=== PATIENT | female | born 1970 | race Caucasian/White ===

== ENCOUNTER 2017-07-09 14:22 | Emergency (ER) | payer SELFPAY ==
[2017-07-09 14:23] VITALS: BP 158/106; PULSE 89; RESP 16; TEMP 36.7; O2SAT 97; BMI 32.1
--- NOTE | 2017-07-09 15:07 | ED.DCSUM_ITS ---
- ER Visit Summary Date of Service: 07/09/17 Chief Complaint: Vomiting and diarrhea History of Present Illness: The patient is a [address] Bryant. She reports that she has vomiting diarrhea that began 2 days ago. She is vomited 3- 4 times. No blood or emesis. She has had 5-6 episodes of diarrhea per day. No blood in her stools or black tarry stools. She complains of cramping diffuse abdominal pain is 4-10 at worst and 3 out of 10 currently. Is worsened by nothing and relieved by nothing. Patient reports that this has gone throughout her entire household. She has not been camping. She has not been on antibiotics recently. No possible bad food exposure. She does not drink well water. Physical Examination: Vitals: Stable. Afebrile. General: Well-nourished and well-developed. Head: Normocephalic atraumatic. Neck: Supple, no lymphadenopathy. No JVD. Nontender. Cardiovascular: Regular rate and rhythm. No murmurs. Respiratory: No respiratory distress. Clear to auscultation bilaterally. Abdominal: Soft, nontender, nondistended, normal bowel sounds. No guarding, rebound, or peritoneal signs. Back: Nontender. Extremities: Nontender, no edema. Skin: Normal color, no rash. Neurologic: Alert and oriented ?3. Cranial nerves II through XII are intact. Normal strength and sensation. Psych: Normal affect. Emergency Department Course and Treatment: Patient refused an IV. She does not want any nausea medication this time. Is resting comfortably. Treatment Plan: Patient will be discharged with Zofran. Instructed to follow- up with primary care physician 1 to days if not improving. Disposition: To home in improved and stable condition. Impression: 1. Vomiting/diarrhea. This note was generated with [employer] dictation software. It may contain incorrect words, spelling, and punctuation that were not noted in review of the chart prior to signing ED Disposition - Plan for ED Patient: Disposition: Home or Assisted Living Chief Complaint: Nausea/Vomiting/Diarrhea Instructions: ED Gastroenteritis Viral Prescriptions: Ondansetron [Zofran Odt] 4 mg PO Q8H PRN PRN #10 tablet PRN Reason: Nausea Referrals: Rosana Bryant MD [Primary Care Provider] - 1-2 Days if not improving
[2017-07-09 15:21] VITALS: PULSE 84; RESP 18; O2SAT 97
== END 2017-07-09 15:22 | disposition home or self-care (01) ==
PROVIDERS: Emergency Provider Emergency Medicine; Family Provider Internal Medicine; PCP Internal Medicine
DX: R11.10 Vomiting, unspecified (principal); R19.7 Diarrhea, unspecified
CPT/HCPCS: 99282

== ENCOUNTER 2017-11-23 12:36 | Emergency (ER) | payer MEDICAID, SELFPAY ==
[2017-11-23 12:38] VITALS: BP 164/89; PULSE 107; RESP 18; TEMP 37.4; O2SAT 99; BMI 32.8
[2017-11-23 13:01] VITALS: TEMP 37.2
--- NOTE | 2017-11-23 13:19 | ED.DCSUM_ITS ---
- ER Visit Summary Date of Service: 11/23/17 Chief Complaint: Headache History of Present Illness: The patient is a 47 F who states that yesterday at work she began to develop a sore throat which progressed then to nasal drainage postnasal drip headache and nausea. States that she feels chilled but has not had a recorded fever. She does not wish any shots because she does not do well with needles. Former smoker. She states that she believes she got sick by family members who have had similar symptoms. Physical Examination: Afebrile vital signs are stable Gen: Well-nourished well-developed Head: Normocephalic atraumatic Eyes: Perrl EOMI ENT: TMs clear clear rhinorrhea moist mucous membranes there is no pharyngeal erythema Neck: Supple scant lymphadenopathy no JVD nontender no meningitic signs CVS: Regular rate rhythm no murmurs normal S1-S2 Respiratory: No distress clear to auscultation bilaterally chest nontender Abdomen: Soft nontender nondistended normal bowel sounds no masses Back: Nontender Extremity: Nontender no edema Skin: Normal color no rash Neuro: alert orientated ?3 CN II-XII intact normal strength sensation reflexes gait cerebellar Psych: Normal affect normal mood Emergency Department Course and Treatment: Patient received Toradol and Phenergan p.o. I will write for Phenergan at home to help with nausea. The patient most likely has a viral illness. Supportive care at home return if worsening or concerns or follow-up with primary care if not improving Impression: 1. Viral URI 2. Headache This note was generated with [employer] dictation software. It may contain incorrect words, spelling, and punctuation that were not noted in review of the chart prior to signing ED Disposition - Plan for ED Patient: Chief Complaint: Headache Instructions: ED URI Viral Prescriptions: proMETHazine tablet [Phenergan] 25 mg PO Q6H PRN PRN #10 tab PRN Reason: Nausea Ketorolac [Toradol] 10 mg PO Q8H PRN #10 tab PRN Reason: Migraine Symptoms Referrals: Rosana Bryant MD [Primary Care Provider] - 3-5 Days if not improving
[2017-11-23] MEDS: Ketorolac 10 MG Tablet PO (13:25)
[2017-11-23] MEDS: proMETHazine 25 MG Tablet PO (13:25)
== END 2017-11-23 13:32 | disposition home or self-care (01) ==
PROVIDERS: Emergency Provider Emergency Medicine; Family Provider Internal Medicine; PCP Internal Medicine
DX: J06.9 Acute upper respiratory infection, unspecified (principal); R51 Headache; Z87.891 Personal history of nicotine dependence
CPT/HCPCS: 99283

== ENCOUNTER 2018-02-22 18:22 | Emergency (ER) | payer MEDICAID, SELFPAY ==
[2018-02-22 18:22] VITALS: BP 167/94; PULSE 82; RESP 16; TEMP 36.2; O2SAT 99; BMI 31.8
--- NOTE | 2018-02-22 18:33 | ED.VISSUMM ---
- ER Visit Summary Date of Service: 02/22/18 Chief Complaint: Head injury History of Present Illness: The patient is a 47 F presents for evaluation of head injury occurring yesterday morning. Slipped on ice going out the house. The back of her head. No loss of consciousness. No nausea or vomiting. Later in the day noted anterior neck pain worse with movement. Patient did not take any anticoagulations. Is taking Aleve. States symptoms worsen with exertion. No previous similar symptoms in the past. No nausea or vomiting. Physical Examination: General: Alert and oriented ?3, no acute distress HEENT: Normocephalic, atraumatic. No hemotympanum. No facial tenderness. Moist mucosa membranes Neck: supple, no midline neck tenderness. There is anterior cervical muscle tenderness. Reproducible. Cardiovascular: Regular rate and rhythm, no murmurs Respiratory: Normal breath sounds, symmetric, no distress Back: No midline tenderness. Abdomen: Soft, nontender, nondistended Extremities: Nontender, no edema, pulses intact ?4 Neuro: no focal neurological deficits. Cranial nerves II through XII intact. Test Results: [] Emergency Department Course and Treatment: Patient no focal neurologic deficits. Complains of concussion symptoms. Patient no anticoagulation medicines. Discussed with patient her diagnosis. Discussed with concerns and wants further evaluation to rule out any bleeds can do a CT head. However states not indicated at this time. She had decision making, she agrees without image study at this time. Concussion precautions discussed along with information. Tylenol started. Discussed cervical neck strain. She will use Tylenol. She will monitor symptoms and follow-up with her PCP. Treatment Plan: [] Disposition: Discharge Impression: 1. Concussion without loss of consciousness 2. Anterior cervical neck muscle strain This note was generated with [employer] dictation software. It may contain incorrect words, spelling, and punctuation that were not noted in review of the chart prior to signing ED Disposition - Plan for ED Patient: Disposition: Home or Assisted Living Chief Complaint: Head Injury Diagnosis: Concussion without loss of consciousness, initial encounter, Neck muscle strain Instructions: ED Concussion, ED Sprain Strain Neck Referrals: Rosana Bryant MD [Primary Care Provider] - 3-5 Days
--- NOTE | 2018-02-22 18:37 | ED.DCSUM_ITS ---
- ER Visit Summary Date of Service: 02/22/18 Chief Complaint: Head injury History of Present Illness: The patient is a 47 F presents for evaluation of head injury occurring yesterday morning. Slipped on ice going out the house. The back of her head. No loss of consciousness. No nausea or vomiting. Later in the day noted anterior neck pain worse with movement. Patient did not take any anticoagulations. Is taking Aleve. States symptoms worsen with exertion. No previous similar symptoms in the past. No nausea or vomiting. Physical Examination: General: Alert and oriented ?3, no acute distress HEENT: Normocephalic, atraumatic. No hemotympanum. No facial tenderness. Charan st mucosa membranes Neck: supple, no midline neck tenderness. There is anterior cervical muscle tenderness. Reproducible. Cardiovascular: Regular rate and rhythm, no murmurs Respiratory: Normal breath sounds, symmetric, no distress Back: No midline tenderness. Abdomen: Soft, nontender, nondistended Extremities: Nontender, no edema, pulses intact ?4 Neuro: no focal neurological deficits. Cranial nerves II through XII intact. Test Results: [] Emergency Department Course and Treatment: Patient no focal neurologic deficits. Complains of concussion symptoms. Patient no anticoagulation medicines. Discussed with patient her diagnosis. Discussed with concerns and wants further evaluation to rule out any bleeds can do a CT head. However states not indicated at this time. She had decision making, she agrees without image study at this time. Concussion precautions discussed along with information. Tylenol started. Discussed cervical neck strain. She will use Tylenol. She will monitor symptoms and follow-up with her PCP. Treatment Plan: [] Disposition: Discharge Impression: 1. Concussion without loss of consciousness 2. Anterior cervical neck muscle strain This note was generated with [employer] dictation software. It may contain incorrect words, spelling, and punctuation that were not noted in review of the chart prior to signing ED Disposition - Plan for ED Patient: Disposition: Home or Assisted Living Chief Complaint: Head Injury Diagnosis: Concussion without loss of consciousness, initial encounter, Neck muscle strain Instructions: ED Concussion, ED Sprain Strain Neck Referrals: Rosana Bryant MD [Primary Care Provider] - 3-5 Days
[2018-02-22 18:39] VITALS: BP 160/84
[2018-02-22] MEDS: Acetaminophen 500 MG Tablet 1000 MG PO (18:45)
== END 2018-02-22 18:45 | disposition home or self-care (01) ==
PROVIDERS: Emergency Provider Emergency Medicine; Family Provider Internal Medicine; PCP Internal Medicine
DX: S06.0X0A Concussion without loss of consciousness, initial encounter (principal); S16.1XXA Strain of muscle, fascia and tendon at neck level, initial encounter; W00.2XXA Other fall from one level to another due to ice and snow, initial encounter; Y93.01 Activity, walking, marching and hiking; Y92.008 Other place in unspecified non-institutional (private) residence as the place of occurrence of the external cause
CPT/HCPCS: 99283

== ENCOUNTER 2018-03-14 01:15 | Emergency (ER) | payer MEDICAID, SELFPAY ==
[2018-03-14 01:17] VITALS: BP 168/102; PULSE 95; RESP 18; TEMP 36.4; O2SAT 97; BMI 33.0
--- NOTE | 2018-03-14 01:28 | RAD_ITS ---
STUDY: X-RAY - ACUTE ABDOMINAL SERIES REASON FOR EXAM: Female, 47 years old. Abdominal pain TECHNIQUE: Single view of the chest. Supine, 3 view(s) of the abdomen were obtained. COMPARISON: None. FINDINGS: There are mild fecal stasis. No bowel distention or free intraperitoneal air. Tubal ligation clips are seen in the pelvis. There are no abnormal calcifications in the urinary system. The accompanying chest radiograph is normal. RAD/Acute Abdomen Inc Chest IMPRESSION: No acute findings in the abdomen or chest. Mild fecal stasis Electronically Signed: Nazario Amos MD at 2:48 EST Tel , Service support ,
--- NOTE | 2018-03-14 01:28 | EKG12_ITS ---
Test Reason : Blood Pressure : / mmHG Vent. Rate : 090 BPM Atrial Rate : 090 BPM P-R Int : 156 ms QRS Dur : 082 ms QT Int : 378 ms P-R-T Axes : 012 001 003 degrees QTc Int : 462 ms Normal sinus rhythm Nonspecific T wave abnormality Prolonged QT Abnormal ECG Confirmed by MARLENI MCKEE, RUTH ([id number]), publishing editor PAULINA ALONZO ([id number] on 03/17/2018 2:51:58 PM Referred By: CRISPIN Confirmed By:RUTH YEPEZ MD
--- NOTE | 2018-03-14 01:28 | ED.RN ---
CALLED FOR EKG PER RN REQUEST, PULLED OLD EKGS FOR
--- NOTE | 2018-03-14 01:33 | ED.DCSUM_ITS ---
- ER Visit Summary Date of Service: 03/14/18 Chief Complaint: Abdominal pain History of Present Illness: The patient is a 47 F who presents for 1 day of abdominal pain. Patient is complaining of epigastric abdominal pain that will radiate up into the chest and into the mid abdomen bilaterally. Patient states the pain feels crampy. She has associated nausea but no vomiting or diarrhea. She is passing flatus. She denies fever, shortness of breath, cough or congestion, constipation, urinary symptoms, back pain. She has not tried any medicine for the discomfort. She has a history of cholecystectomy. She has history of hypertension and is on hypertension medications. Does not smoke or drink alcohol. No history of coronary artery disease. Patient's last meal was pizza for dinner. Physical Examination: Vital signs: afebrile, hemodynamically stable, no hypoxia on room air General: well nourished, well developed, in no distress Skin: warm, dry, no rash, no pallor HEENT: normocephalic and atraumatic; PERRL, EOMI, moist mucous membranes Cardiovascular: regular rate and rhythm without murmurs, no peripheral edema, 2+ pulses all distal extremities Respiratory: No increased work of breathing, lungs are clear to auscultation bilaterally, no rales, rhonchi or wheezing Abdominal: Abdomen is soft, low epigastric tenderness with normoactive bowel sounds, no guarding or rebound, no rigidity, no masses MSK: Moves all extremities, no deformities, normal strength Neuro: Awake and alert, oriented ?4. No facial droop, sensation and motor function intact and symmetric Test Results: Abnormal Lab Results 03/14/18 03/14/18 03/14/18 01:35 01:35 01:35 WBC 7.6 RBC 5.07 Hgb 14.2 Hct 43.2 MCV 85.2 MCH 28.0 MCHC 32.9 RDW 15.2 H RDW Differential 47.2 H Plt Count 363 MPV 9.5 Immature Gran % (Auto) 0.100 Neut % (Auto) 64.1 Lymph % (Auto) 22.6 Valley % (Auto) 10.5 H Eos % (Auto) 2.0 Baso % (Auto) 0.7 Absolute Neuts (auto) 4.9 Absolute Lymphs (auto) 1.73 Total Counted Not Reportable Sodium 138 Potassium 3.3 L Chloride 104 Carbon Dioxide 27.0 Anion Gap 7 BUN 14 Creatinine 0.64 Estim Creat Clear Calc 88.93 Est GFR (MDRD) Af Amer 127 Est GFR (MDRD) Non-Af 105 BUN/Creatinine Ratio 21.9 H Glucose 132 H Calcium 8.2 L Total Bilirubin 0.30 AST 33 ALT 21 Alkaline Phosphatase 111 Troponin I < 0.015 Total Protein 7.4 Albumin 3.5 Globulin 3.9 Albumin/Globulin Ratio 0.9 Lipase 181 Serum , Qual NEGATIVE 03/14/18 04:31 WBC RBC Hgb Hct MCV MCH MCHC RDW RDW Differential Plt Count MPV Immature Gran % (Auto) Neut % (Auto) Lymph % (Auto) Valley % (Auto) Eos % (Auto) Baso % (Auto) Absolute Neuts (auto) Absolute Lymphs (auto) Total Counted Sodium Potassium Chloride Carbon Dioxide Anion Gap BUN Creatinine Estim Creat Clear Calc Est GFR (MDRD) Af Amer Est GFR (MDRD) Non-Af BUN/Creatinine Ratio Glucose Calcium Total Bilirubin AST ALT Alkaline Phosphatase Troponin I < 0.015 Total Protein Albumin Globulin Albumin/Globulin Ratio Lipase Serum , Qual Clinical Impression(s) from Imaging Studies Acute Abdomen Series 03/14/18 01:28 IMPRESSION: No acute findings in the abdomen or chest. Mild fecal stasis Electronically Signed: Nazario Amos MD at 2:48 EST Tel , Service support , Medications Given Discontinued Medications Al Hydroxide/Mg Hydroxide (Mylanta Ii) 30 ml PO X1 ONE Stop: 03/14/18 01:28 Last Admin: 03/14/18 01:39 Dose: 30 ml Dicyclomine HCl (Bentyl) 20 mg PO X1 ONE Stop: 03/14/18 01:28 Last Admin: 03/14/18 01:39 Dose: 20 mg Lidocaine HCl (Xylocaine Viscous) 15 ml PO X1 ONE Stop: 03/14/18 01:28 Last Admin: 03/14/18 01:39 Dose: 15 ml Multi-Ingredient GI Drug () 1 each PO X1 ONE Stop: 03/14/18 01:28 Last Admin: 03/14/18 01:44 Dose: Not Given Emergency Department Course and Treatment: Patient presents with several hours of epigastric discomfort radiating into the substernal region and also going to the abdomen. Patient presents because she is concerned it could be her heart. Her pain is crampy and she describes it like indigestion. She does have some lower epigastric tenderness on palpation. Given substernal chest pain along with the epigastric discomfort, workup performed to look for intra-abdominal and intrathoracic pathology. EKG shows sinus rhythm without ischemic changes. Troponin negative. Patient had no leukocytosis, anemia, electrolyte derangements, hepatic derangements or elevated lipase. Patient was given a GI cocktail and a dose of Bentyl, and had improvement in her pain. Patient has been having several hours of symptoms, and if the substernal discomfort was related to acute coronary syndrome, I would expect to see changes on the troponin repeat EKG. Patient is low risk for acute coronary syndrome, with a heart score of 3 for age, story and one risk factor of hypertension. Patient was amenable to a 3-hour repeat EKG and troponin. EKG showed sinus rhythm with no changes and repeat troponin remained negative. Patient was reevaluated again and had no discomfort. Her symptoms were resolved. She was given a prescription for Bentyl for her crampy abdominal pain and a prescription for Phenergan any nausea symptoms. Patient will follow up with her primary care provider. Patient discharged home with symptoms resolved. Treatment Plan: [] Disposition: [] Impression: abdominal pain, indigestion This note was generated with [employer] dictation software. It may contain incorrect words, spelling, and punctuation that were not noted in review of the chart prior to signing ED Disposition - Plan for ED Patient: Disposition: Home or Assisted Living Chief Complaint: Abd Pain Instructions: ED Abdominal Pain Unkn Cause, ED GERD Prescriptions: proMETHazine tablet [Phenergan tablet] 25 mg PO Q6H PRN PRN #15 tab PRN Reason: Nausea RX: Dicyclomine HCl [Bentyl] 20 mg PO TIDAC #20 cap Referrals: Rosana Bryant MD [Primary Care Provider] - 1 Week if not improving Additional Instructions: If you have any worsening of your condition or any new concerning symptoms, please return immediately to the emergency department for another evaluation.
[2018-03-14] MEDS: Mag Hydrox/Al Hydrox/Simeth 30 ML UDC PO (01:39)
[2018-03-14] MEDS: Dicyclomine 10 MG Capsule 20 MG PO (01:39)
[2018-03-14 01:40] LABS: Absolute Lymphocyte Count 1.73 X10^3/ul (0.83-4.51); Absolute Neutrophil Count 4.9 X10^3/uL (2.0-7.7); Basophil# 0.05 X10^3/uL; Basophil% 0.7 % (0-1); Eosinophil# 0.15 X10^3/uL; Hematocrit 43.2 % (37-47); Hemoglobin 14.2 g/dl (12.0-15.0); Lymphocyte # 1.73 X10^3/ul (4.0); Lymphocyte % 22.6 % (19-41); Mean Corp Hgb Conc 32.9 g/gl (32-36); Mean Corpuscular Volume 85.2 fL (81-99); Mean Platelet Vol. 9.5 fl (6.2-12.0); Monocyte% 10.5 % (0-10); Neutrophil % 64.1 % (47-70); Platelet Count 363 K/mm3 (150-450); RBC Distribution Width CV 15.2 % (11.6-14.6); RBC Distribution Width SD 47.2 fl (35.1-43.9); Red Blood Count 5.07 M/mm3 (4.2-5.4); White Blood Count 7.6 K/mm3 (4.4-11.0)
[2018-03-14 01:42] LABS: POSITIVE COUNT NO; POSITIVE DIFFERENTIAL NO; POSITIVE MORPHOLOGY NO
[2018-03-14 01:57] LABS: ALB/GLOB Ratio 0.9 RATIO (0.9-2.4); AST(SGOT) 33 U/L (15-37); Alanine Aminotransfer ALT/SGPT 21 U/L (13-56); Albumin, Serum 3.5 g/dL (3.2-5.0); Alkaline Phosphatase 111 U/L (45-117); Anion Gap 7 (5-15); BUN 14 mg/dL (7-18); BUN/Creat Ratio 21.9 RATIO (10-20); Calcium,Total 8.2 mg/dL (8.5-10.1); Chloride 104 mmol/L (98-107); Creatinine, Serum 0.64 mg/dL (0.55-1.02); EST Glomerular Filtration Rate 105 mL/min (>60); Est Glom Filt Rate - Afr Amer 127 mL/min (>60); Estimated Creatinine Clearance 88.93 ml/min; Globulin 3.9 g/dL (2.2-4.2); Glucose 132 mg/dL (74-106); Lipase 181 U/L (73-393); Potassium 3.3 mmol/L (3.5-5.1); Protein, Total 7.4 g/dL (6.4-8.2); Sodium Level 138 mmol/L (136-145)
[2018-03-14 02:31] LABS: Pregnancy, Serum, hCG Quali. NEGATIVE Negative (0-9 Nonpreg)
--- NOTE | 2018-03-14 04:30 | EKG12_ITS ---
Test Reason : REPEAT Blood Pressure : / mmHG Vent. Rate : 085 BPM Atrial Rate : 085 BPM P-R Int : 150 ms QRS Dur : 080 ms QT Int : 428 ms P-R-T Axes : 011 000 -02 degrees QTc Int : 509 ms Normal sinus rhythm Minimal voltage criteria for LVH, may be normal variant Nonspecific T wave abnormality Prolonged QT Abnormal ECG Confirmed by MARLENI MCKEE, RUTH ([id number]), marketing editor PAULINA ALONZO ([id number] on 03/17/2018 2:52:17 PM Referred By: CRISPIN Confirmed By:RUTH YEPEZ MD
--- NOTE | 2018-03-14 05:06 | ED.DEP ---
ED Disposition - Plan for ED Patient: Disposition: Home or Assisted Living Chief Complaint: Abd Pain Instructions: ED Abdominal Pain Unkn Cause, ED GERD Prescriptions: proMETHazine tablet [Phenergan tablet] 25 mg PO Q6H PRN PRN #15 tab PRN Reason: Nausea Dicyclomine HCl [Bentyl] 20 mg PO TIDAC #20 cap Referrals: Rosana Bryant MD [Primary Care Provider] - 1 Week if not improving Additional Instructions: If you have any worsening of your condition or any new concerning symptoms, please return immediately to the emergency department for another evaluation.
[2018-03-14 05:11] VITALS: BP 160/78; PULSE 83; RESP 16; O2SAT 98
== END 2018-03-14 05:17 | disposition home or self-care (01) ==
PROVIDERS: Emergency Provider Emergency Medicine; Family Provider Internal Medicine; PCP Internal Medicine
DX: R10.816 Epigastric abdominal tenderness (principal); K30 Functional dyspepsia; I10 Essential (primary) hypertension; Z79.899 Other long term (current) drug therapy
CPT/HCPCS: 74022; 80053; 83690; 84484; 84703; 85025; 93005; 99283; A4216

== ENCOUNTER 2018-03-17 19:46 | Emergency (ER) | payer MEDICAID, SELFPAY ==
[2018-03-17 19:47] VITALS: BP 198/107; PULSE 70; RESP 19; TEMP 36.9; O2SAT 99; BMI 31.8
--- NOTE | 2018-03-17 20:21 | CT_ITS ---
STUDY: CT ABDOMEN AND PELVIS WITHOUT CONTRAST REASON FOR EXAM: Female, 47 years old. Bilateral flank pain. RADIATION DOSAGE (If Supplied By Facility): CTDIvol = ( 11.30 ) mGy, DLP = ( 618.46 ) mGycm TECHNIQUE: Transaxial images were obtained from the dome of the diaphragm to the symphysis pubis without oral contrast, and without intravenous contrast. Sagittal and coronal images were reconstructed. Individualized dose optimization techniques were used for this CT. COMPARISON: September 12, 2014 FINDINGS: The visualized lung bases are unremarkable. The visualized portions of the heart are within normal limits. Normal liver. There is evidence of prior cholecystectomy. Normal spleen. Normal pancreas. Normal bilateral adrenal glands. Normal right kidney. Normal left kidney. Normal visualized stomach. Normal small intestine. Normal colon. There is non-visualization of the appendix. Normal abdominal aorta. Normal inferior vena cava. Normal retroperitoneum. Normal urinary bladder. There is evidence of prior tubal ligation. There is a small umbilical hernia containing fat. Normal osseous structures. CT/Abdomen/Pelvis without Cont IMPRESSION: No acute intra-abdominal process. Electronically Signed: Leah Willson MD at 21:12 EST Tel , Service support ,
--- NOTE | 2018-03-17 20:31 | EKG12_ITS ---
Test Reason : FLANK PAIN Blood Pressure : / mmHG Vent. Rate : 067 BPM Atrial Rate : 067 BPM P-R Int : 126 ms QRS Dur : 094 ms QT Int : 432 ms P-R-T Axes : 070 008 017 degrees QTc Int : 456 ms Normal sinus rhythm Normal ECG Confirmed by MARLENI MCKEE, RUTH ([id number]), fan mail editor PAULINA ALONZO ([id number] on 03/21/2018 10:46:19 AM Referred By: KYREE Confirmed By:RUTH YEPEZ MD
--- NOTE | 2018-03-17 20:32 | ED.VISSUMM ---
- ER Visit Summary Date of Service: 03/17/18 Chief Complaint: [] Abdominal pain radiating to the back for days vomiting History of Present Illness: The patient is a 47 F [] history for days she was seen recently in the emergency department workup was unremarkable she reports she continues to have basically pain she points to the umbilical area reports the pain radiates around to both backs right and left she has had intermittent vomiting she has had normal bowel habits normal urinary habits she denies any history of [place] PE DVT or any GI elements Physical Examination: [] 190/70 afebrile General, no distress resting comfortably HEENT is generally unremarkable The neck is supple no adenopathy Cardiovascular, regular rate and rhythm Lungs, clear bilateral Abdomen, soft nontender cannot reproduce her pain but again she takes both hands and draws it to both flanks to her back complaint discomfort here there is no pulsation rebound guarding organomegaly Extremities, no clubbing cyanosis or edema Neurologic, awake alert answering questions appropriately moving all 4 extremities Test Results: [] Emergency Department Course and Treatment: [] IV fluids screening labs CT abdomen Screening labs and abdominal CT are all generally unremarkable nothing acute see those reports Explained all the above to her that the exact etiology of this pain that she has had for days is unclear there is nothing on physical exam nothing on the CT of the laboratory evaluation he has a follow-up appointment scheduled tomorrow with her outpatient provider she will keep that appointment and return for change in symptoms and otherwise follow all of the prior instruction she was given for this abdominal pain Treatment Plan: [] Disposition: [] Home stable Impression: [] Abdominal pain etiology unclear This note was generated with [employer] dictation software. It may contain incorrect words, spelling, and punctuation that were not noted in review of the chart prior to signing ED Disposition - Plan for ED Patient: Chief Complaint: Flank Pain Referrals: Rosana Bryant MD [Primary Care Provider] -
[2018-03-17] MEDS: 0.9% Normal Saline 1,000 ML 1000 ML IV (20:35)
[2018-03-17] MEDS: Ondansetron 4 MG/2 ML Vial IV (20:36)
--- NOTE | 2018-03-17 20:36 | ED.DCSUM_ITS ---
- ER Visit Summary Date of Service: 03/17/18 Chief Complaint: [] Abdominal pain radiating to the back for days vomiting History of Present Illness: The patient is a 47 F [] history for days she was seen recently in the emergency department workup was unremarkable she reports she continues to have basically pain she points to the umbilical area reports the pain radiates around to both backs right and left she has had intermittent vomiting she has had normal bowel habits normal urinary habits she denies any history of [place] PE DVT or any GI elements Physical Examination: [] 190/70 afebrile General, no distress resting comfortably HEENT is generally unremarkable The neck is supple no adenopathy Cardiovascular, regular rate and rhythm Lungs, clear bilateral Abdomen, soft nontender cannot reproduce her pain but again she takes both hands and draws it to both flanks to her back complaint discomfort here there is no pulsation rebound guarding organomegaly Extremities, no clubbing cyanosis or edema Neurologic, awake alert answering questions appropriately moving all 4 extremities Test Results: [] Emergency Department Course and Treatment: [] IV fluids screening labs CT abdomen Screening labs and abdominal CT are all generally unremarkable nothing acute see those reports Explained all the above to her that the exact etiology of this pain that she has had for days is unclear there is nothing on physical exam nothing on the CT of the laboratory evaluation he has a follow-up appointment scheduled tomorrow with her outpatient provider she will keep that appointment and return for change in symptoms and otherwise follow all of the prior instruction she was given for this abdominal pain Treatment Plan: [] Disposition: [] Home stable Impression: [] Abdominal pain etiology unclear This note was generated with [employer] dictation software. It may contain incorrect words, spelling, and punctuation that were not noted in review of the chart p rior to signing ED Disposition - Plan for ED Patient: Chief Complaint: Flank Pain Referrals: Rosana Bryant MD [Primary Care Provider] -
[2018-03-17 20:41] LABS: Absolute Lymphocyte Count 1.32 X10^3/ul (0.83-4.51); Absolute Neutrophil Count 5.7 X10^3/uL (2.0-7.7); Basophil# 0.06 X10^3/uL; Basophil% 0.7 % (0-1); Eosinophil# 0.36 X10^3/uL; Eosinophils% 4.3 % (0-5); Hematocrit 44.4 % (37-47); Hemoglobin 14.3 g/dl (12.0-15.0); Lymphocyte # 1.32 X10^3/ul (4.0); Lymphocyte % 15.8 % (19-41); Mean Corp Hgb Conc 32.2 g/gl (32-36); Mean Corpuscular Hgb 27.8 pg (27.0-32.0); Mean Corpuscular Volume 86.4 fL (81-99); Mean Platelet Vol. 9.5 fl (6.2-12.0); Monocyte# 0.94 X10^3/uL; Monocyte% 11.2 % (0-10); Neutrophil # 5.66 X10^3/uL (2.7-7.7); Neutrophil % 67.8 % (47-70); Platelet Count 351 K/mm3 (150-450); RBC Distribution Width CV 15.4 % (11.6-14.6); RBC Distribution Width SD 49.2 fl (35.1-43.9); Red Blood Count 5.14 M/mm3 (4.2-5.4); White Blood Count 8.4 K/mm3 (4.4-11.0)
[2018-03-17 20:45] LABS: POSITIVE COUNT NO; POSITIVE DIFFERENTIAL NO; POSITIVE MORPHOLOGY NO
[2018-03-17 20:45] LABS: Red Blood Cells-Urine 0 SEEN /hpf (0-5)
[2018-03-17 20:46] LABS: Color, Urine Yellow (Yellow); Glucose, Dipstick Normal (Normal); Ketone-Dipstick 50 mg/dl (Negative); Leukocyte Esterase-Dipstick 25 /ul (Negative); Nitrite-Dipstick Negative (Negative); Occult Blood-Urine Negative /ul (Negative); Protein-Dipstick 15 mg/dl (Negative); Urine Clarity Clear (Clear); Urine Urobilinogen 4 mg/dl (Normal)
[2018-03-17 20:51] LABS: Urine Bilirubin Dipstick 1 mg/dL (Negative)
[2018-03-17 20:52] LABS: Mucous, Urine 1+ /hpf (<or=2+); Squamous Epithelial Cells - UA 0-5 SEEN /hpf (5-10); White Blood Cells 0-5 SEEN /hpf (0-5)
--- NOTE | 2018-03-17 20:57 | ED.RN ---
PT STATES UNABLE TO TAKE MORPHINE D/T ALLERGY, DR. SOTO MADE AWARE, VERBAL ORDERS OBTAINED.
[2018-03-17 20:59] LABS: AST(SGOT) 226 U/L (15-37); Alanine Aminotransfer ALT/SGPT 460 U/L (13-56); Albumin, Serum 3.7 g/dL (3.2-5.0); Alkaline Phosphatase 272 U/L (45-117); Anion Gap 6 (5-15); BUN 8 mg/dL (7-18); BUN/Creat Ratio 11.2 RATIO (10-20); Bilirubin, Direct 1.86 mg/dL (0.00-0.30); Calcium,Total 8.6 mg/dL (8.5-10.1); Chloride 103 mmol/L (98-107); Creatinine, Serum 0.71 mg/dL (0.55-1.02); EST Glomerular Filtration Rate 93 mL/min (>60); Est Glom Filt Rate - Afr Amer 112 mL/min (>60); Estimated Creatinine Clearance 80.16 ml/min; Globulin 4.4 g/dL (2.2-4.2); Glucose 105 mg/dL (74-106); Lipase 182 U/L (73-393); Potassium 3.3 mmol/L (3.5-5.1); Protein, Total 8.1 g/dL (6.4-8.2); Sodium Level 138 mmol/L (136-145)
[2018-03-17] MEDS: Acetaminophen 500 MG Tablet 1000 MG PO (21:03)
--- NOTE | 2018-03-17 21:25 | ED.DEP ---
ED Disposition - Plan for ED Patient: Chief Complaint: Flank Pain Instructions: ED Flank Pain Uncertain Cause Referrals: Rosana Bryant MD [Primary Care Provider] -
[2018-03-17 21:41] VITALS: BP 180/111; PULSE 74; RESP 16
--- OUTSIDE RECORDS SUMMARY | 2018-05-04 03:36 | XMS RPT_ITS ---
:1970 Author Organization OH[employer] Name Relationship Address Phone LI, RIGOBERTO Unavailable [address] + [place] [address] UE Unavailable Unavailable Unavailable LI, RIGOBERTO Unavailable [address] + [place] [address] UE Unavailable Unavailable Unavailable LI, RIGOBERTO Unavailable [address] + [place] [address] UE Unavailable Unavailable Unavailable LI, RIGOBERTO Unavailable [address] + [place] [address] UE Unavailable Unavailable Unavailable LI, RIGOBERTO Unavailable [address] + [place] [address] UE Unavailable Unavailable Unavailable LI, RIGOBERTO Unavailable [address] + [place] [address] UE Unavailable Unavailable Unavailable LI, RIGOBERTO Unavailable [address] + [place] [address] UE Unavailable Unavailable Unavailable LI, RIGOBERTO Unavailable [address] + [place] [address] UE Unavailable Unavailable Unavailable LI, RIGOBERTO Unavailable [address] + [place] [address] UE Unavailable Unavailable Unavailable LI, RIGOBERTO Unavailable Unavailable + [employer] Unavailable . +. [place] [address] LI, RIGOBERTO Unavailable [address] + [place] [address] Care Team Providers Name Role Phone LARISA SANDRA Attending Unavailable PHYSICIAN, NONE Primary Care Unavailable ALIYAH VALDOVINOS () Attending Unavailable JAMES JORDAN (HYDRAULIC CHAIR ASSEMBLER) Attending Unavailable GANTA, JULITA Referring Unavailable PODLOGARSTEPHANIE (JARVIS) Attending Unavailable JAMES JORDAN (JARVIS) Attending Unavailable PODLOGAR, STEPHANIE (HYDRAULIC CHAIR ASSEMBLER) Referring Unavailable Ganta, Julita Primary Care Unavailable Reena Olivier Attending Unavailable Jose Juan Matias Attending Unavailable Robotham, Nita Referring Unavailable Robotham, Nita Admitting Unavailable Robotham, Nita Attending Unavailable Robotham, Nita Referring Unavailable Ganta, Julita Primary Care Unavailable Robotham, Nita Consulting Unavailable Ganta, Julita Primary Care Unavailable Cassie Celis Attending Unavailable Ganta, Julita Primary Care Unavailable Hamlet Waters Attending Unavailable Ganta, Julita Primary Care Unavailable Patrice Sanders Attending Unavailable Ganta, Julita Primary Care Unavailable Andrzej Allison Attending Unavailable Robotham, Nita Admitting Unavailable Robotham, Nita Attending Unavailable Robotham, Nita Referring Unavailable Ganta, Julita Primary Care Unavailable Robotham, Nita Consulting Unavailable Robotham, Nita Admitting Unavailable Alexandru Pierce Attending Unavailable Robotham, Nita Referring Unavailable Ganta, Julita Primary Care Unavailable Robotham, Nita Consulting Unavailable Ganta, Julita Primary Care Unavailable Robotham, Nita Admitting Unavailable Robotham, Nita Attending Unavailable Robotham, Nita Referring Unavailable PROBLEMS PROBLEMS DATE TYPE CONDITION / CODE ATTENDING STATUS SOURCE 04/16/2018 Unknown R94.31 - Abnormal Jose Juan Matias Active [facility] [[facility] [EKG] / Hospital R94.31(ICD-10) Repository 03/18/2018 Active Pain in right foot / NA Active [facility] M79.671(ICD-10) [facility] [place] Repository 03/18/2018 Active Abnormal levels of NA Active [facility] other serum enzymes / [facility] R74.8(ICD-10) [place] Repository 03/18/2018 Active Unspecified abdominal NA Active [facility] pain / R10.9(ICD-10) [facility] [place] Repository 09/20/2017 Active Encounter for NA Active [facility] screening mammogram [facility] for malignant neoplasm [place] of breast / Repository Z12.31(ICD-10) 09/20/2017 Active Unknown / UNK(Unknown) NA Active [facility] Repository PROCEDURES PROCEDURES No Procedure Records FoundRESULTS RESULTS PROGRESS Observed: 04/25/2018 Status: COMPLETED Source: [place] 10:03 AM [facility] REPOSITORY HNO ID: [id number] Author: James Jordan Service: (none) Author Type: Nurse Practitioner Type: Progress Notes Filed: 04/25/2018 10:04 AM Note Text: Orders filed. James Jordan APRN.CNP PROGRESS Observed: 04/25/2018 Status: COMPLETED Source: [place] 8:10 AM [facility] REPOSITORY HNO ID: [id number] Author: Amparo Martinez Service: (none) Author Type: Key Holder Type: Progress Notes Filed: 04/25/2018 10:04 AM Note Text: POPULATION HEALTH WET MIX OPERATOR QUICKNOTE Provider Action/FYI: Please file lab. Patient replied to [employer] message and states she'll call in to make an appointment. Patient identified by name and . Gave patient my direct number to call back to make appointment. 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 [employer] message sent. Amparo Martinez CMA PROGRESS Observed: 04/24/2018 Status: COMPLETED Source: [place] 9:03 AM [facility] REPOSITORY HNO ID: [id number] Author: Amparo Martinez Service: (none) Author Type: Key Holder Type: Progress Notes Filed: 04/25/2018 10:04 AM Note Text: PHMA TEAMLET DOCUMENTATION Provider Action/FYI: PSR Action/FYI: R/s Nurse BP check Teamlet has identified patient by name and date of . Team: James Carrillo ? Last Office Visit:03/18/2018 ? Next Office Visit: Visit date not found ? Last BP/Labs: Blood Pressure: Last 3 Encounter BP Readings: Date: BP: 03/18/2018 160/110 12/31/2017 138/86 11/05/2017 150/88 Lipids: No results found for: CHOL No results found for: HDL No results found for: LDL No results found for: TG HGB A1C: No results found for: HBA1C TSH: TSH (uU/mL) Date Value 09/03/2014 2.100 ) Care Gap: HTN Plan: ? Confirm PCP / Status - active ? Type of appointment needed: Nurse BP vist next available ? Consultation Appointments: n/a Labs, HM and Immunization: Health Maintenance Due: BP CONTROLLED (<130/80) due on 06/22/1987 LIPID SCREEN due on 2014 - order pending DIABETES SCREEN due on 2014 - ordered INFLUENZA(1) due on 12/07/2017 Amparo Martinez CMA CNPTOUTREACH Observed: 04/24/2018 Status: COMPLETED Source: [place] 12:00 AM [facility] REPOSITORY Patient Outreach (INTMWS) GILMA MILLER ([id number]) 1970 F CHT Date Time Provider Department 04/24/18 AMPARO MARTINEZ) INTMWS During your visit today, we recorded the following information about you: Amparo Martinez CMA 04/25/2018 10:04 AM Signed PHMA TEAMLET DOCUMENTATION Provider Action/FYI: PSR Action/FYI: R/s Nurse BP check Teamlet has identified patient by name and date of . Team: James Carrillo ? Last Office Visit:03/18/2018 ? Next Office Visit: Visit date not found ? Last BP/Labs: Blood Pressure: Last 3 Encounter BP Readings: Date: BP: 03/18/2018 160/110 12/31/2017 138/86 11/05/2017 150/88 Lipids: No results found for: CHOL No results found for: HDL No results found for: LDL No results found for: TG HGB A1C: No results found for: HBA1C TSH: TSH (uU/mL) Date Value 09/03/2014 2.100 ) Care Gap: HTN Plan: ? Confirm PCP / Status - active ? Type of appointment needed: Nurse BP vist next available ? Consultation Appointments: n/a Labs, HM and Immunization: Health Maintenance Due: BP CONTROLLED (<130/80) due on 06/22/1987 LIPID SCREEN due on 2014 - order pending DIABETES SCREEN due on 2014 - ordered INFLUENZA(1) due on 12/07/2017 SCOTT Harrison, [facility] 04/25/2018 10:04 AM Signed [facility] ASSISTANT JUAN LUIS Provider Action/FYI: Patient identified by name and . [employer] message sent. SCOTT Harrison SUPERVISOR [employer] 04/25/2018 10:04 AM Signed [facility] WET MIX OPERATOR JUAN LUIS Provider Action/FYI: Please file lab. Patient replied to [employer] message and states she'll call in to make an appointment. Patient identified by name and . Gave patient my direct number to call back to make appointment. SCOTT Harrison APRN.CNP 04/25/2018 10:04 AM Signed Orders filed. James Jordan APRN.CNP Allergies As of Date: 04/24/2018 Noted Allergy Reaction MOBIC (MELOXICAM) 10/24/2009 4 - Hives NAPROXEN 10/24/2009 8 - GI Upset PREDNISONE 11/07/2009 4 - Hives 12 - Shortness of Breath TYLENOL #3 (CODEINE) 10/24/2009 4 - Hives VICODIN (HYDROCODONE-ACETAMINOPHE*09/27/2014 8 - GI Upset Comments: Nausea Date Reviewed: 03/18/2018 Reviewed by: Libia Queen Ma - Fully Assessed Reason for Visit: PHMA/Care Gap Outreach [4124] Primary Visit Diagnosis:Screening, lipid [Z13.220] Order(s):LIPID PANEL BASIC [SQLIPB] Order #: [id number] FUTURE Prescriptions as of 04/24/2018 Sig: POLYETHYLENE GLYCOL 3350 17 G* Take 17 g by mouth twice soledad* AMLODIPINE 5 MG TABLET Take 1 tablet by mouth once d* OMEPRAZOLE 20 MG CAPSULE,ANGELINA* Take 1 capsule by mouth daily* ONDANSETRON 4 MG DISINTEGRATI* Take 1 tablet by mouth every * POTASSIUM CHLORIDE ER 10 MEQ * Take 1 tablet by mouth daily * COMPOUNDED PRESCRIPTION Blood pressure cuff ICD Code* WHITE PETROLATUM 41 % TOPICAL* Apply 1 application to affect* LISINOPRIL 20 MG-HYDROCHLOROT* Take 1 tablet by mouth twice * MINERAL OIL-HYDROPHIL PETROLA* Apply 1 application to affect* COMPOUNDED PRESCRIPTION BLOOD PRESSURE CUFF FOR HOME * COMPOUNDED PRESCRIPTION Blood pressure machine DX: Problem List As Of Date 04/24/2018 Noted Resolved Essential Hypertension, Benign [I10] INVALID FOR* More... Chronic low back pain [M54.5, G89.29] INVALID FOR* More... Heavy menses [N92.0] INVALID FOR*10/20/2014 Abnormal uterine bleeding [N93.9] INVALID FOR*10/20/2014 Irregular bleeding [N92.6] INVALID FOR*10/20/2014 Mixed incontinence [N39.46] INVALID FOR* Encounter Status:Closed by AMPARO MARTINEZ CMA on 04/25/18 12 LEAD ELECTROCARDIOGRAM Observed: 03/24/2018 Status: F Source: [place] 7:55 AM [facility] Cardiovascular Services [address] [place] [id number] 12 Lead EKG 03/19/18 1435 MR#: [id number] Acct: [id number] Name: GILMA MILLER Rep #: [id number] : 1970 47 From: Jose Juan Matias MD Attending Dr: Nita Gonzalez MD Status: DIS QUANG Ordering Dr: William Mcfarlane MD Date: 03/19/18 Location: [facility] Sex: F C Admitted: 03/18/18 Test Reason : Blood Pressure : / mmHG Vent. Rate : 093 BPM Atrial Rate : 093 BPM P-R Int : 134 ms QRS Dur : 082 ms QT Int : 370 ms P-R-T Axes : 026 003 000 degrees QTc Int : 460 ms Normal sinus rhythm Nonspecific T wave abnormality Abnormal ECG When compared with ECG of 17-MAR-2018 20:40, MANUAL COMPARISON REQUIRED, DATA IS UNCONFIRMED Confirmed by JOSE JUAN MATIAS MD ([id number]), video news editor GILMA ALONZO ([id number]) on 03/24/2018 7:55:08 AM Referred By: Nita Gonzalez Confirmed By:JOSE JUAN MATIAS MD 03/24/18 0755 Date Jose Juan Matias MD CC: William Mcfarlane MD; Julita Bryant MD; Nita Gonzalez MD Signed 12 LEAD ELECTROCARDIOGRAM Observed: 03/21/2018 Status: F Source: [place] 10:46 AM [facility] Cardiovascular Services [address] [place] [address] 12 Lead EKG 03/17/182039 MR#: [id number] Acct: [id number] Name: GILMA MILLER Rep #: [id number] : 1970 47 From: Jose Juan Matias MD Attending Dr: Status: DEP ER Ordering Dr: Reena Olivier MD Date: 03/17/18 Location: ED Sex: F C Admitted: Test Reason : FLANK PAIN Blood Pressure : / mmHG Vent. Rate : 067 BPM Atrial Rate : 067 BPM P-R Int : 126 ms QRS Dur : 094 ms QT Int : 432 ms P-R-T Axes : 070 008 017 degrees QTc Int : 456 ms Normal sinus rhythm Normal ECG Confirmed by JOSE JUAN MATIAS MD ([id number]), video news editor GILMA ALONZO ([id number]) on 03/21/2018 10:46:19 AM Referred By: Confirmed By:JOSE JUAN MATIAS MD 03/21/18 1046 Date Jose Juan Matias MD CC: MD Heidy Olivier; Julita Bryant MD Signed DISCHARGE INSTRUCTION Observed: 03/20/2018 Status: F Source: [place] 3:23 PM [facility] Medical Records Department [address] [place] [address] Instructions for Home/Discharge Instructions 03/20/18 1237 MR#: [id number] Acct: [id number] Name: GILMA MILLER Rep #: [id number] : 1970 47 From: Nita Gonzalez MD PCP: Julita Bryant MD Status: ADM QUANG Discharge Diet: Light diet - advance as tolerated Discharge Activity: May Shower Lifting Restrictions: none Allergies/Adverse Reactions: Allergies meloxicam [From Mobic] Allergy (Verified 03/18/18 15:39) Hives naproxen [From Naprosyn] Allergy (Verified 03/18/18 15:39) Hives acetaminophen [From Vicodin] Adverse Reaction (Verified 03/18/18 15:39) Nausea codeine Adverse Reaction (Verified 03/18/18 15:39) Vomiting hydrocodone bitartrate [From Vicodin] Adverse Reaction (Verified 03/18/18 15:39) Nausea morphine Adverse Reaction (Verified 03/18/18 15:39) Chest tightness Medications to take at Discharge Lisinopril/Hydrochlorothiazide [Zestoretic 20/12.5 Tablet] 1 tablet PO BID 03/14/18 Primary Care Physician: Julita Bryant MD [Primary Care Provider] - Test Results: Test results from this visit will be discussed in further detail at your follow-up appointment, if applicable. Proposed Discharge Date: 03/20/18 03/20/18 1523 <Electronically signed by Nita Gonzalez MD> Date Nita Gonzalez MD CC: Julita Bryant MD CBC-COMPLETE BLOOD CNT Collected: 03/20/2018 Status: F Source: [place] NO DIFF 2:44 PM [facility] TYPE CODE TESTS RESULT OUT OF RANGE REFERENCE UNITS LAB L100.1000 4.4-11.0 K/mm3 Normal WBC 9.0 LAB L100.1200 4.2-5.4 M/mm3 Normal RBC 4.51 LAB L100.1300 12.0-15.0 g/dl Normal HGB 12.6 LAB L100.1400 37-47 % Normal HCT 39.2 LAB L100.1500 81-99 fL Normal MCV 86.9 LAB L100.1600 27.0-32.0 pg Normal MCH 27.9 LAB L100.1700 32-36 g/gl Normal MCHC 32.1 LAB L100.1810 11.6-14.6 % High RDW CV 15.9 LAB L100.1820 35.1-43.9 fl High RDW SD 50.8 LAB L100.1900 150-450 K/mm3 Normal PLT 296 LAB L100.2000 6.2-12.0 fl Normal MPV 9.3 Performed By: #### L100.0500 #### [facility] [place], [address] CBC W/DIFF, AUTOMATED Collected: 03/20/2018 Status: F Source: [place] 5:50 AM [facility] TYPE CODE TESTS RESULT OUT OF RANGE REFERENCE UNITS LAB L100.1000 4.4-11.0 K/mm3 High WBC 13.4 LAB L100.1200 4.2-5.4 M/mm3 Normal RBC 5.04 LAB L100.1300 12.0-15.0 g/dl Normal HGB 14.0 LAB L100.1400 37-47 % Normal HCT 43.7 LAB L100.1500 81-99 fL Normal MCV 86.7 LAB L100.1600 27.0-32.0 pg Normal MCH 27.8 LAB L100.1700 32-36 g/gl Normal MCHC 32.0 LAB L100.1810 11.6-14.6 % High RDW CV 16.0 LAB L100.1820 35.1-43.9 fl High RDW SD 50.3 LAB L100.1900 150-450 K/mm3 Normal PLT 354 LAB L100.2000 6.2-12.0 fl Normal MPV 9.9 LAB L100.2100 47-70 % High NEUT% 79.9 LAB L100.2200 19-41 % Low LY% 9.2 LAB L100.2300 0-10 % Normal MONO% 9.3 LAB L100.2400 0-5 % Normal EO% 1.0 LAB L100.2500 0-1 % Normal BASO% 0.3 LAB L100.2550 0.0-0.9 % Normal IM GRAN % 0.300 Result Comment: IG% - Immature Granulocytes (promyelocytes, myelocytes and metamyelocytes) > 1% indicates that a LEFT SHIFT is Present. LAB L100.2620 2.0-7.7 X10 3/uL High Absolute Neut 10.7 LAB L100.2720 0.83-4.51 X10 3/ul Normal Absolute Lymph 1.23 Performed By: #### L100.0100 #### [facility] [place], [address] COMPREHENSIVE METABOLIC Collected: 03/20/2018 Status: F Source: [place] [facility] 5:50 AM [facility] TYPE CODE TESTS RESULT OUT OF RANGE REFERENCE UNITS LAB L501.0100 74-106 mg/dL Low GLU 72 Result Comment: Please note revised GLUCOSE reference range effective 2017. LAB L501.1000 7-18 mg/dL Normal BUN 7 LAB L501.1100 0.55-1.02 mg/dL Normal CREAT,SERUM 0.58 Result Comment: The validity of the calculated GFR AND GFRAA in patients over 70 years has not been determined. Clinical correlation is essential. LAB L501.1110 >60 mL/min Normal EST GFR 118 Result Comment: Non- GFR Calc LAB L501.1115 >60 mL/min Normal EST GFR - AA 142 Result Comment: GFR Calc LAB L501.1255 ml/min Normal Estimated CRCL 98.12 LAB L501.1300 10-20 RATIO Normal BUN/CRE 12.1 LAB L501.1500 6.4-8. g/dL Normal 2 T PROT 7.2 LAB L501.1800 3.2-5. g/dL Low 0 ALB 2.9 LAB L501.1950 2.2-4. g/dL High 2 GLOB 4.3 LAB L501.2000 0.9-2. RATIO Low 4 A/G 0.7 LAB L501.2200 8.5-10 mg/dL Normal .1 CA 8.5 LAB L501.4100 15-37 U/L High AST 75 LAB L501.4305 45-117 U/L High ALK P 286 LAB L501.4405 13-56 U/L High ALT 201 LAB L501.4600 0.20-1 mg/dL High .00 T BILI 2.00 LAB L501.5300 136-14 mmol/L Low 5 NA 131 LAB L501.5600 3.5-5. mmol/L Normal 1 K 4.4 LAB L501.5900 98-107 mmol/L Normal CL 101 LAB L501.6100 21.0-3 mmol/L Low 2.0 CO2 18.0 LAB L501.6200 5-15 Normal GAP 12 Performed By: #### L500.4050 #### [facility] [address] [place], [address] LIPASE Collected: 03/20/2018 Status: F Source: [place] 5:50 AM [facility] TYPE CODE TESTS RESULT OUT OF REFERENCE UNITS RANGE LAB L501.2450 73-393 U/L High LIPASE 662 Performed By: #### L501.2450 #### [facility] [address] [place], [address] OPERATIVE REPORT - Observed: 03/19/2018 Status: F Source: [place] [facility] 4:47 PM [facility] Medical Records Department [address] [place] [address] Operative Report - Endoscopy MR#: [id number] Acct: [id number] Name: GILMA MILLER Rep #: [id number] : 1970 47 From: Alexandru Pierce MD PCP: Julita Bryant MD Status: ADM QUANG Patient Name: Gilma Miller Procedure Date: 03/19/2018 4:02 PM Date of : 1970 Age: 47 Procedure: ERCP Indications: Elevated liver enzymes Providers: Alexandru Pierce MD Referring MD: Nita Gonzalez MD Medicines: General Anesthesia Patient Profile: This is a 47 year old female. Refer to note in patient chart for documentation of history and physical. Complications: No immediate complications. Estimated blood loss: Minimal. Procedure: Pre-Anesthesia Assessment: - Prior to the procedure, a History and Physical was performed, and patient medications and allergies were reviewed. The patient's tolerance of previous anesthesia was also reviewed. The risks and benefits of the procedure and the sedation options and risks were discussed with the patient. All questions were answered, and informed consent was obtained. Prior Anticoagulants: The patient has taken no previous anticoagulant or antiplatelet agents. After reviewing the risks and benefits, the patient was deemed in satisfactory condition to undergo the procedure. After obtaining informed consent, the scope was passed under direct vision. Throughout the procedure, the patient's blood pressure, pulse, and oxygen saturations were monitored continuously. The duodenoscope was introduced through the mouth, and advanced to the duodenum and used to inject contrast into the bile duct. The ERCP was accomplished without difficulty. The patient tolerated the procedure well. Scope In: 4:33:15 PM Scope Out: 4:39:32 PM Total Procedure Duration Time 0 hours 6 minutes 17 seconds Findings: The major papilla was normal. A 0.035 inch x 260 cm straight Dreamwire was passed into the biliary tree. The short-nosed traction sphincterotome was passed over the guidewire and the bile duct was then deeply cannulated. Contrast was injected. Opacification of the hepatic duct bifurcation was successful. Biliary sphincterotomy was made with a monofilament traction (standard) sphincterotome using ERBE electrocautery. There was no post-sphincterotomy bleeding. To discover objects, the biliary tree was swept with a 12 mm balloon starting at the bifurcation. There were no stones identified in the duct and there was bile flow. The endoscope was withdrawn from the patient. Impression: - The major papilla appeared normal. - A biliary sphincterotomy was performed. - The biliary tree was swept and duct was dilated but no stones were found. Recommendation: - NPO. - Return patient to [facility] for [facility] care. Procedure Code(s): --- Professional --- 09572, Endoscopic retrograde cholangiopancreatography (ERCP); with sphincterotomy/papillotomy Diagnosis Code(s): --- Professional --- R74.8, Abnormal levels of other serum enzymes CPT copyright 2017 [employer]. All rights reserved. The codes documented in this report are preliminary and upon manager activities review may be revised to meet current compliance requirements. Alexandru Pierce MD 03/19/2018 4:47:06 PM This report has been signed electronically. Number of Addenda: 0 Note Initiated On: 03/19/2018 4:02 PM 03/19/18 1647 Date Alexandru Pierce [facility] Signature: Date (if indicated) CC: Julita Bryant MD; Nita Gonzalez MD Date Dictated: 03/19/18 1602 Date Transcribed: System Sales Consultant: JONATHON Signed HISTORY AND PHYSICAL Observed: 03/19/2018 Status: F Source: [place] EXAM 1:04 PM [facility] Medical Records Department [address] [place] [address] History and Physical 03/18/18 1950 MR#: [id number] Acct: [id number] Name: GILMA MILLER Rep #: [id number] : 1970 47 From: Nita Gonzalez MD PCP: Julita Bryant MD Status: ADM QUANG Y Location: [address] History of Present Illness Date of Admission: 03/18/18 The patient is a 47 year old F presented to the ER due to back pain which started last night along with nausea and vomiting and epigastric pain. Previously patient did have epigastric pain and nausea vomiting starting on Saturday. Did go to the ER yesterday but was discharged. Patient has CT abdomen pelvis which was read as normal. Upon looking at the images is there were dilated bile ducts. Liver functions were elevated yesterday and there was more elevated today with a total bili of 4.3 and then lipase of 56,000-normal. Denies fevers or chills, does admit to flatus and had a normal bowel movement yesterday that was brown in color. She did have a laparoscopic cholecystectomy [place] [address] Hutr. Past Medical History Past Medical History (Chronic Problems): Chronic Problems HTN (hypertension) (Chronic) Allergies meloxicam [From Mobic] Allergy (Verified 03/18/18 15:39) Hives naproxen [From Naprosyn] Allergy (Verified 03/18/18 15:39) Hives acetaminophen [From Vicodin] Adverse Reaction (Verified 03/18/18 15:39) Nausea codeine Adverse Reaction (Verified 03/18/18 15:39) Vomiting hydrocodone bitartrate [From Vicodin] Adverse Reaction (Verified 03/18/18 15:39) Nausea morphine Adverse Reaction (Verified 03/18/18 15:39) Chest tightness Home Medications: Ambulatory Orders Medication Instructions Recorded Lisinopril/Hydrochlorothiazide 1 tablet PO BID 03/14/18 [Zestoretic 20/12.5 Tablet] Surgical History: adenoidectomy, cholecystectomy, tonsillectomy 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 Smoking Status: Former smoker Tobacco Use: Cigarettes - *Family History Maternal History Items: Heart Disease, - - mother with cad at early age Paternal History Items: Heart Disease, - - father with cad at early age Review of Systems Constitutional: Denies: Chills, Fever Eyes: Denies: Blurred vision HEENT: Denies: Difficulty Swallowing Cardiovascular: Denies: Chest Pain Respiratory: Denies: Shortness of Breath Gastrointestinal: Reports: Abdominal Pain, Nausea, Vomiting Genitourinary: Denies: Dysuria Musculoskeletal: Reports: Back Pain Skin: Denies: Rash Neurological: Denies: Balance problems Psychiatric: Denies: Anxiety, Depression Hematologic/ Lymphatic: Denies: Easy Bruising, Easy Bleeding VTE Information - Inpt Only VTE Present on Admission: Yes VTE Mechan Device Prophylaxis: SCD's VTE Pharm Prophylaxis ordered?: No Reason prophylaxis not ordered:: Medical Contraindication - Plan for ERCP tomorrow - Physical Exam General: Alert, Oriented x3, Cooperative, No apparent distress HEENT: Atraumatic Lungs: Normal air movement Cardiovascular: Regular rate Abdomen: Soft, Non-Distended, Tender - RUQ AND epigastric>LUQ, no PS Extremities: No clubbing, No cyanosis, No edema Skin: No rashes Neurological: Cranial nerves II-XII grossly intact Psych/Mental Status: Normal Affect Vital Signs Temp Pulse Resp BP Pulse Ox 97.8 F 93 20 H 184/86 H 96 03/18/18 18:44 03/18/18 18:44 03/18/18 18:44 03/18/18 18:44 03/18/18 18:44 Oxygen Delivery Method Room Air Weight: 183 lb 10.321 oz Body Mass Index (BMI) 32.5 Finger Stick Blood Glucose 157 Laboratory Tests Past 24 Hrs WBC 14.1 H RBC 5.42 H Hgb 15.4 H Hct 45.9 MCV 84.7 MCH 28.4 MCHC 33.6 RDW 15.6 H RDW Differential 48.6 H Assessment/Plan All Active Problems Elevated troponin (Acute) Right upper quadrant abdominal pain (Acute) Abnormal cardiovascular stress test (Acute) Angina pectoris (Acute) Atypical chest pain (Acute) Preop cardiovascular exam (Acute) Cholecystitis without cholelithiasis (Acute) 47-year-old female with obstructive jaundice, pancreatitis 1. N.p.o./IV fluids, strict I's and O's 2. Obstructive jaundice-started Zosyn IV in the ER will continue, will repeat labs-LFTs and lipase in the morning. Dr. Pierce will see the patient in the morning to discuss an ERCP. 3. Hypokalemia replaced 4. Leukocytosis continue Zosyn 3.375 g IV every 8 hours Nita Gonzalez M.D. Pager: [phone] [facility] [address] [place] [address], Outpatient [place], [address] [place] [address] Office: [phone] Code Visit Inpatient E AND M: [id number] Init Hosp L2 03/19/18 1304 <Electronically signed by Nita Gonzalez MD> Date Nita Gonzalez MD Cosigner Signature: Date (if applicable) CC: Julita Bryant MD; Nita Gonzalez MD Signed ERCP BILIARY ONLY Observed: 03/19/2018 Status: F Source: [place] 8:19 AM [facility] Imaging Services [address] [id number] ERCP Biliary Only MR#: [id number] Acct: [id number] Name: GILMA MILLER Rebecca Rep #: [id number] : 1970 F 47 From: Stanislav Bee DO PCP: Julita Bryant MD Status: ADM QUANG Study: ERCP Biliary Only Date of Exam: 03/19/18 Exam# [id number] Ordering Dr: Alexandru Pierce MD STUDY: ERCP WITH BALLOON STRIPPING AND SPHINCTEROTOMY. REASON FOR EXAM: Female, 47 years old. Abdominal pain. Flank pain. RADIATION DOSAGE (If Supplied By Facility): CTDIvol = ( ) mGy, DLP = ( ) mGycm. Individualized dose optimization techniques were used for this CT.? FLUOROSCOPY TIME (if supplied): (Not provided) minutes/seconds TECHNIQUE: 2 images were presented for interpretation. COMPARISON: CT of the abdomen and pelvis, March 17, 2018. FINDINGS: The images demonstrate the endoscope with its tip in the second portion of duodenum. The initial image demonstrates a wire extending upward in the CBD. There is contrast-enhancement within the CBD which is of normal diameter. There is an abrupt termination of the contrast in the distal duct. Second image demonstrates evidence of balloon stripping with the balloon near the ampulla. The proximal CBD and common hepatic duct appear normal. Please refer to the operative report for further details. RAD/ERCP Biliary Only IMPRESSION: ERCP in the OR. Electronically Signed: Stanislav Bee DO at 17:17 EST Tel [phone], Service support , CC: Alexandru Pierce MD; Julita Bryant MD System Sales Consultant: Signed CBC W/DIFF, AUTOMATED Collected: 03/19/2018 Status: F Source: [place] 6:00 AM [facility] TYPE CODE TESTS RESULT OUT OF RANGE REFERENCE UNITS LAB L100.1000 4.4-11.0 K/mm3 Normal WBC 8.1 LAB L100.1200 4.2-5.4 M/mm3 Normal RBC 4.89 LAB L100.1300 12.0-15.0 g/dl Normal HGB 13.7 LAB L100.1400 37-47 % Normal HCT 42.6 LAB L100.1500 81-99 fL Normal MCV 87.1 LAB L100.1600 27.0-32.0 pg Normal MCH 28.0 LAB L100.1700 32-36 g/gl Normal MCHC 32.2 LAB L100.1810 11.6-14.6 % High RDW CV 16.1 LAB L100.1820 35.1-43.9 fl High RDW SD 51.0 LAB L100.1900 150-450 K/mm3 Normal PLT 344 LAB L100.2000 6.2-12.0 fl Normal MPV 9.8 LAB L100.2100 47-70 % High NEUT% 71.0 LAB L100.2200 19-41 % Low LY% 14.3 LAB L100.2300 0-10 % High MONO% 11.8 LAB L100.2400 0-5 % Normal EO% 2.2 LAB L100.2500 0-1 % Normal BASO% 0.6 LAB L100.2550 0.0-0.9 % Normal IM GRAN % 0.100 Result Comment: IG% - Immature Granulocytes (promyelocytes, myelocytes and metamyelocytes) > 1% indicates that a LEFT SHIFT is Present. LAB L100.2620 2.0-7.7 X10 3/uL Normal Absolute Neut 5.8 LAB L100.2720 0.83-4.51 X10 3/ul Normal Absolute Lymph 1.16 Performed By: #### L100.0100 #### [facility] [address] [place], [place], [address] BASIC METABOLIC Collected: 03/19/2018 Status: F Source: [place] PROFILE (BMP) 6:00 AM [facility] TYPE CODE TESTS RESULT OUT OF RANGE REFERENCE UNITS LAB L501.0100 74-106 mg/dL Normal GLU 96 Result Comment: Please note revised GLUCOSE reference range effective 2017. LAB L501.1000 7-18 mg/dL Normal BUN 7 LAB L501.1100 0.55-1.02 mg/dL Normal CREAT,SERUM 0.68 Result Comment: The validity of the calculated GFR AND GFRAA in patients over 70 years has not been determined. Clinical correlation is essential. LAB L501.1110 >60 mL/min Normal EST GFR 97 Result Comment: Non- GFR Calc LAB L501.1115 >60 mL/min Normal EST GFR - AA 118 Result Comment: GFR Calc LAB L501.1255 ml/min Normal Estimated CRCL 83.69 LAB L501.1300 10-20 RATIO Normal BUN/CRE 10.2 LAB L501.2200 8.5-10 mg/dL Normal .1 CA 8.7 LAB L501.5300 136-14 mmol/L Normal 5 NA 141 LAB L501.5600 3.5-5. mmol/L Normal 1 K 3.8 LAB L501.5900 98-107 mmol/L High CL 108 LAB L501.6100 21.0-3 mmol/L Normal 2.0 CO2 23.0 LAB L501.6200 5-15 Normal GAP 10 Performed By: #### L500.2500, L500.3400, L501.2450 #### [facility] [address], [place], [id number] LIVER PROFILE Collected: 03/19/2018 Status: F Source: [place] 6:00 AM [facility] TYPE CODE TESTS RESULT OUT OF RANGE REFERENCE UNITS LAB L501.1500 6.4-8.2 g/dL Normal T PROT 6.9 LAB L501.1800 3.2-5.0 g/dL Low ALB 3.1 LAB L501.1950 2.2-4.2 g/dL Normal GLOB 3.8 LAB L501.4100 15-37 U/L High AST 105 LAB L501.4305 45-117 U/L High ALK P 256 LAB L501.4405 13-56 U/L High ALT 267 LAB L501.4600 0.20-1.00 mg/dL High T BILI 4.10 LAB L501.4700 0.00-0.30 mg/dL High D BILI 3.03 Performed By: #### L500.2500, L500.3400, L501.2450 #### [facility] [address], [place], [id number] LIPASE Collected: 03/19/2018 Status: F Source: [place] 6:00 AM [facility] TYPE CODE TESTS RESULT OUT OF REFERENCE UNITS RANGE LAB L501.2450 73-393 U/L High LIPASE [address] Performed By: #### L500.2500, L500.3400, L501.2450 #### [facility] [address] [place], [address] EMERGENCY DEPARTMENT Observed: 03/19/2018 Status: F Source: [place] SUMMARY 12:35 AM [facility] Medical Records Department [address] [place] [address] Emergency Department Summary 03/18/18 1639 MR#: [id number] Acct: [id number] Name: GILMA MILLER Rep #: [id number] : 1970 47 From: Bryant Alvarado MD PCP: Julita Bryant MD Status: ADM QUANG - ER Visit Summary Date of Service: 03/18/18 Chief Complaint: Abdominal pain History of Present Illness: The patient is a 47 F presenting for evaluation due to abdominal pain. Patient reports that over the course last 5 days she has had a continuous epigastric abdominal pain. She is actually been seen in the emergency department for this twice, had lab work as well as imaging it was recommended follow-up with her primary care. Patient reports that she went to primary care today continuing to have this abdominal pain and was recommended that she probably needs admission for observation due to lab abnormalities. Patient states that it has been associated with some nausea and vomiting. She denies any presence of fevers. She denies any diarrhea or change in color of her stools. Patient states that she does not have a gallbladder. Review of systems otherwise negative. Physical Examination: Vital signs are within normal limits, patient is afebrile. General: Patient is well-nourished well-developed and in no acute distress. Head: Normocephalic, atraumatic Eyes: Pupils equal round and reactive bilaterally, extra occular motion intact bialterally, no evidence of scleral icterus ENT: Moist mucous membranes Neck: Supple, no lymphadenopathy, no JVD, no meningismus CVS: Heart regular rate and rhythm, no murmurs, rubs or gallops, radial pulses 2+ bilaterally Resp: Respirations nondistressed, lung sounds clear bilaterally Abdomen: Soft, epigastric and right upper quadrant tenderness to palpation with some voluntary guarding but no rebound tenderness or distention noted, nondistended, no palpable masses, normal bowel sounds Back: Nontender Extremities: Nontender, atraumatic, active full range of motion, no peripheral edema Skin: warm, no rashes, no petechia Neuro: Alert and oriented x 4, CN 2-12 intact, no lateralizing neurological defecits Psyc: Normal affect Test Results: CBC not significantly remarkable, chemistry panel shows evidence of increasing bilirubin with total bilirubin being 4.3, direct being 3.4, and alkaline phosphatase ALT and AST of 293, 360, and 141 respectively. Lipase was 56,314. Emergency Department Course and Treatment: Patient presented with persistent epigastric abdominal pain. I reviewed patient's records from yesterday, and she did have evidence of elevation of her bilirubin as well as her transaminases. Laboratory studies were repeated, showing also an increase in the patient's lipase. This is concerning for the possibility of gallstone pancreatitis. I discussed this with Dr. Gonzalez who stated that she would accept patient for likely ERCP. Disposition: Admission Impression: 1. Gallstone pancreatitis This note was generated with [employer] dictation software. It may contain incorrect words, spelling, and punctuation that were not noted in review of the chart prior to signing ED Disposition - Plan for ED Patient: Chief Complaint: Abd Pain What to do if you have Problems For any increased pain, shortness of breath, bleeding, nausea or vomiting, chest pain, or any unexpected problems, contact your Primary Care Provider. Call [facility] ([phone]) or report to the closest Emergency Room. Call 911 if necessary. 03/19/18 0035 <Electronically signed by Bryant Alvarado MD> Date Bryant Alvarado MD Cosigner Signature (If Indicated): Date CC: Julita Bryant MD CBC W/DIFF, AUTOMATED Collected: 03/18/2018 Status: C Source: [place] 4:10 PM [facility] TYPE CODE TESTS RESULT OUT OF RANGE REFERENCE UNITS LAB L100.1000 4.4-11.0 K/mm3 High WBC 14.1 LAB L100.1200 4.2-5.4 M/mm3 High RBC 5.42 LAB L100.1300 12.0-15.0 g/dl High HGB 15.4 LAB L100.1400 37-47 % Normal HCT 45.9 LAB L100.1500 81-99 fL Normal MCV 84.7 LAB L100.1600 27.0-32.0 pg Normal MCH 28.4 LAB L100.1700 32-36 g/gl Normal MCHC 33.6 LAB L100.1810 11.6-14.6 % High RDW CV 15.6 LAB L100.1820 35.1-43.9 fl High RDW SD 48.6 LAB L100.1900 150-450 K/mm3 Normal PLT 390 LAB L100.2000 6.2-12.0 fl Normal MPV 10.0 LAB L100.2100 47-70 % High NEUT% 75.3 LAB L100.2200 19-41 % Low LY% 9.3 LAB L100.2300 0-10 % High MONO% 13.4 LAB L100.2400 0-5 % Normal EO% 1.2 LAB L100.2500 0-1 % Normal BASO% 0.5 LAB L100.2550 0.0-0.9 % Normal IM GRAN % 0.300 Result Comment: IG% - Immature Granulocytes (promyelocytes, myelocytes and metamyelocytes) > 1% indicates that a LEFT SHIFT is Present. LAB L100.2620 2.0-7.7 X10 3/uL High Absolute Neut 10.7 LAB L100.2720 0.83-4.51 X10 3/ul Normal Absolute Lymph 1.32 LAB L100.4500 Normal SMEAR COMMENT COMMENT Result Comment: SLIDE SCANNED - MONOCYTOSIS NOTED. LAB L100.9900 Normal Reviewed PATH REV Result Comment: Neutrophilic leukocytosis. Clinical correlation necessary. Dylan Ortiz M.D. 03/19/18 AMENDED REPORT 03/19/18 1439 PATH REV previously reported as: Yudy donaldson Performed By: #### L100.0100 #### [facility] [place], [address] BASIC METABOLIC Collected: 03/18/2018 Status: F Source: [place] PROFILE (BMP) 4:10 PM [facility] TYPE CODE TESTS RESULT OUT OF RANGE REFERENCE UNITS LAB L501.0100 74-106 mg/dL High GLU 122 Result Comment: Fasting Glucose result from 100 to 125 mg/dL suggests IMPAIRED HOMEOSTASIS per A.D.A. criteria. Please note revised GLUCOSE reference range effective 2017. LAB L501.1000 7-18 mg/dL Low BUN 6 LAB L501.1100 0.55-1.02 mg/dL Normal CREAT,SERUM 0.71 Result Comment: The validity of the calculated GFR AND GFRAA in patients over 70 years has not been determined. Clinical correlation is essential. LAB L501.1110 >60 mL/min Normal EST GFR 93 Result Comment: Non- GFR Calc LAB L501.1115 >60 mL/min Normal EST GFR - AA 113 Result Comment: GFR Calc LAB L501.1255 ml/min Normal Estimated CRCL 80.16 LAB L501.1300 10-20 RATIO Low BUN/CRE 8.5 LAB L501.2200 8.5-10 mg/dL Normal .1 CA 8.8 LAB L501.5300 136-14 mmol/L Normal 5 NA 139 LAB L501.5600 3.5-5. mmol/L Low 1 K 3.2 LAB L501.5900 98-107 mmol/L Normal CL 103 LAB L501.6100 21.0-3 mmol/L Normal 2.0 CO2 26.0 LAB L501.6200 5-15 Normal GAP 10 Performed By: #### L500.2500, L500.3400, L501.2450 #### [facility] [address] [place], [place], [address] LIVER PROFILE Collected: 03/18/2018 Status: F Source: [place] 4:10 PM [facility] TYPE CODE TESTS RESULT OUT OF RANGE REFERENCE UNITS LAB L501.1500 6.4-8.2 g/dL Normal T PROT 8.1 LAB L501.1800 3.2-5.0 g/dL Normal ALB 3.7 LAB L501.1950 2.2-4.2 g/dL High GLOB 4.4 LAB L501.4100 15-37 U/L High AST 141 LAB L501.4305 45-117 U/L High ALK P 293 LAB L501.4405 13-56 U/L High ALT 360 LAB L501.4600 0.20-1.00 mg/dL High T BILI 4.30 LAB L501.4700 0.00-0.30 mg/dL High D BILI 3.43 Performed By: #### L500.2500, L500.3400, L501.2450 #### [facility] [address] [place], [place], [address] LIPASE Collected: 03/18/2018 Status: F Source: [place] 4:10 PM [facility] TYPE CODE TESTS RESULT OUT OF REFERENCE UNITS RANGE LAB L501.2450 73-393 U/L High LIPASE [address] Performed By: #### L500.2500, L500.3400, L501.2450 #### [facility] [address] [place], [place], [address] HEPATITIS PANEL ACUTE Collected: 03/18/2018 Status: F Source: [place] 4:10 PM [facility] TYPE CODE TESTS RESULT OUT OF RANGE REFERENCE UNITS LAB L3100.0200 Negative Normal HEP A Negative IgM 6734 LAB L3100.0400 Negative Normal HB Negative SURF AG LAB L3100.0440 Negative Normal HB Negative CORE [id number] LAB L3100.0650 0.0-0.9 s/co ratio Normal HEP C <0.1 AB Result Comment: Negative: < 0.8 Indeterminate: 0.8 - 0.9 Positive: > 0.9 The CDC recommends that a positive HCV antibody result be followed up with a HCV Nucleic Acid Amplification test (312363). Performed at: - [facility] [address] [id number] Guardian Ad Litem: Mil Waggoner PhD, Phone: [phone] Performed By: #### L3000.0375 #### [facility] (refer to report for specific site) refer to report for address and phone number URINALYSIS WITH Collected: 03/18/2018 Status: F [facility] REPOSITORY TYPE CODE TESTS RESULT OUT OF RANGE REFERENCE UNITS LAB [facility] Yellow Abnormal Color Amanda Alert LAB [facility] Clear Abnormal Clarity Cloudy Alert LAB UGLUC Negative mg/dL Glucose, Negative Urine LAB UBIL Negative 1+ Abnormal Bilirubin, Alert Urine Result Comment: Suggest correlation with clinical findings and serum bilirubin if clinically indicated. LAB UKET Negative Abnormal Ketones, Urine 1+ Alert LAB USPG 1.005-1.030 Specific Conifer, Ur 1.018 LAB UHGB Negative Hemoglobin/Blood,U Negative r LAB UPH 4.5-8.0 pH 6.0 LAB UPROT Negative mg/dL Abnormal Protein, Urine 30 Alert LAB UUROB Normal Urobilinogen Normal LAB UNITR Negative Nitrites Negative LAB ULKEST Negative Leukest Negative LAB UCOM Comments SEE COMMENT Result Comment: N/A LAB UMCOM Urine SEE Ez Comment COMMENT Result Comment: N/A LAB UWBC 0-5 /HPF WBC 0-5 LAB URBC 0-3 /HPF RBC 0-3 LAB UCAST 0 /LPF Abnormal Alert Cast SEE COMMENT Result Comment: 1-3 Hyaline Cast LAB UEPI /HPF Epithelial SEE Cells COMMENT Result Comment: Few Squamous Epithelial Cells Performed By: #### UAWMIC #### [facility] [address] [address] Observed: 03/18/2018 Status: F Source: [place] URINE CULTURE 10:49 AM [facility] REPOSITORY Sp. Request/Comment: - Specimen received in preservative Culture Result - <10,000 CFU/ml Normal urogenital mj Performed By: #### URCUL #### [facility] [address] [place] [address] C-REACTIVE PROTEIN Collected: 03/18/2018 Status: F Source: [place] 10:47 AM [facility] REPOSITORY TYPE CODE TESTS RESULT OUT OF REFERENCE UNITS RANGE LAB CRP <0.9 mg/dL High C-Reactive 1.4 Protein Performed By: #### CRP, GGT, URIC, HREMOP, AHAVT, WSR #### [facility] [address] [place] [address] GGT Collected: 03/18/2018 Status: F Source: [place] 10:47 AM [facility] REPOSITORY TYPE CODE TESTS RESULT OUT OF RANGE REFERENCE UNITS LAB GGT 6-46 U/L High GGT 246 Performed By: #### CRP, GGT, URIC, HREMOP, AHAVT, WSR #### [place] [address] URIC ACID Collected: 03/18/2018 Status: F Source: [place] 10:47 AM [facility] REPOSITORY TYPE CODE TESTS RESULT OUT OF RANGE REFERENCE UNITS LAB URIC 2.5-6.6 mg/dL Uric Acid 4.6 Performed By: #### CRP, GGT, URIC, HREMOP, AHAVT, WSR #### [place] [address] HEPATITIS REMOTE PANEL Collected: 03/18/2018 Status: F Source: [place] 10:47 AM [facility] REPOSITORY TYPE CODE TESTS RESULT OUT OF REFERENCE UNITS RANGE LAB AHBCOT Negative Hep B Core Ab,Total Negative LAB AHCV Negative Hepatitis C Ab Negative IA LAB HBSAGR Negative HBsAg Negative LAB AHBSAG Negative HepB Surface Ab,Qual Negative Result Comment: NEGATIVE Performed By: #### CRP, GGT, URIC, HREMOP, AHAVT, WSR #### [place] [address] HEPATITIS A AB TOTAL Collected: 03/18/2018 Status: F Source: [place] 10:47 AM [facility] REPOSITORY TYPE CODE TESTS RESULT OUT OF REFERENCE UNITS RANGE LAB AHAVT Negative Hepatitis A Ab Negative Total Performed By: #### CRP, GGT, URIC, HREMOP, AHAVT, WSR #### [place] [address] SED RATE WESTERGREN Collected: 03/18/2018 Status: F Source: [place] 10:47 AM [facility] REPOSITORY TYPE CODE TESTS RESULT OUT OF REFERENCE UNITS RANGE LAB WSR 0-20 mm/hr Sed Rate Westergren 9 Performed By: #### CRP, GGT, URIC, HREMOP, AHAVT, WSR #### [place] [address] PROGRESS Observed: 03/18/2018 Status: COMPLETED Source: [place] 10:00 AM [facility] REPOSITORY HNO ID: [id number] Author: James ArtNellie Jordan Service: (none) Author Type: Nurse Practitioner Type: Progress Notes Filed: 03/18/2018 3:45 PM Note Text: CC: Patient presents with: Abdominal Pain: Trouble breathing, pain with inhaling, vomitting,back pain, indigestion x 1 week HPI Gilma Miller is a 47 year old female who presents today for ongoing abdominal pain x1 week. Patient was evaluated at [facility] ER 02/15/18 for complaints of abdominal pain that radiates to the back and vomiting for 1 week. She was noted to be hypertensive at 190/70. Abdominal Xray showed Mild fecal stasis CT abdomen showed No acute intra-abdominal process. Noted small umbilical hernia and appendix was not visualized. Labs: UA showed +bilirubin, ketones, protein, leuks, WBC and RBC CMP showed elevated AST/ALT, tot bilirubin and hypokalemia No additional work up completed and patient was discharged home following administration of IVF. She presents today with continued complaints of mid-epigastric pain, back pain resolved. Associated symptoms include nausea and vomiting with most meals. She denies any fever, chills or diarrhea. Complains of irregular BMs. Denies any black or bloody stools. States she has been avoiding most fried foods, does drink a lot of pop and ~2 cups of coffee a day. Denies heartburn, excessive belching or flatus. Also denies any urinary symptoms, except notes her urine was very dark yesterday. REVIEW OF SYSTEMS General: no fevers, no chills, no recurrent infections, no change in appetite, no change in energy and no significant changes in weight HEENT: no frequent or significant headaches, no nose bleeds, no sinus or nasal problems Respiratory: no cough, no wheezing, no shortness of breath, no hemoptysis Cardiovascular: no chest pain, no chest pressure, no palpitations and no swelling GI: See HPI : No history of dysuria, frequency or incontinence PAST MEDICAL HISTORY Diagnosis Date - Acute cholecystitis - Chronic low back pain - HTN (hypertension) PAST SURGICAL HISTORY Procedure Laterality Date - LAPAROSCOPIC CHOLEYCYSTECTOMY 05/23/2015 - REMOVAL OF TONSILS,<11 Y/O Tonsillectomy - TUBAL LIGATION HX 1993 - VAGINAL HYSTERECTOMY 2014 ALLERGIES Mobic [Meloxicam]; Naproxen; Prednisone; Tylenol #3 [Codeine]; Vicodin [Hydrocodone-Acetaminophen] MEDICATIONS Blood Pressure Cuff - Home Use BLOOD PRESSURE CUFF FOR HOME USE. DX: LABILE BLOOD PRESSURE 401.01 COMPOUNDED PRESCRIPTION Blood pressure machineDX: COMPOUNDED PRESCRIPTION Blood pressure cuffICD Code: I10 lisinopril-hydrochlorothiazide (PRINZIDE,ZESTORETIC) 20-12.5 mg per tablet Take 1 tablet by mouth twice daily. mineral oil/hydrophil petrolatum (AQUAPHOR) oint Apply 1 application to affected area twice daily as needed. white petrolatum (AQUAPHOR HEALING) ointment Apply 1 application to affected area twice daily. FAMILY HISTORY Problem Relation Age of Onset - Hypertension Mother - Hypertension Father - Coronary Artery Disease Mother - Coronary Artery Disease Father - Cancer Mother Breast - Cancer Father Lung Social History Substance Use Topics - Smoking status: Never Smoker - Smokeless tobacco: Never Used - Alcohol use No PHYSICAL EXAM BP 164/108 Pulse 76 Temp 36.5 ?C (97.7 ?F) (Temporal Artery) Resp 16 Wt 83.5 kg (184 lb) LMP 09/26/2014 (Exact Date) SpO2 95% BMI 32.59 kg/m? General Appearance: in no acute distress, alert Skin: Skin color, texture, turgor normal for age; Head: normocephalic, atraumatic Lungs: lungs clear to auscultation. No wheezing, rhonchi, rales Heart: RRR without murmur, gallop, or rubs. No ectopy Abdomen: Abdomen soft, non-tender. Bowel sounds normal. No masses, organomegaly, Negative CVA tenderness, Positive findings: tenderness mild to moderate epigastric BP CONTROLLED (<130/80) due on 06/22/1987 LIPID SCREEN due on 2014 DIABETES SCREEN due on 2014 INFLUENZA(1) due on 12/07/2017 ANNUAL PCP TEAM CHRONIC DISEASE VISIT due on 09/03/2018 MAMMOGRAM due on 09/20/2018 DTAP,TDAP,TD(2 - Td) due on 06/16/2019 PAP EVERY 5 YEARS due on 09/18/2019 HPV EVERY 5 YEARS due on 09/18/2019 ASSESSMENT/PLAN: 1. Epigastric pain - ICD9: 789.06, ICD10: R10.13 (primary diagnosis) Etiology unclear Differential Diagnosis includes GERD, Gastritis, Constipation, Appendicitis- (appendix not visualized on CT imaging, no WBC elevation) and Cystitis - Begin treatment with Prilosec 20 mg QD - Labs of Urine analysis - [place]more low residue diet - Treatment for constipation discussed - Follow up in to be determined by laboratory studies or sooner if worsening of symptoms 2. Elevated liver enzymes - ICD9: 790.5, ICD10: R74.8 - HEP REMOTE PANEL BL - HEP A AB TOTAL - GGT BLD 3. Flank pain - ICD9: 789.09, ICD10: R10.9 - URINALYSIS WITH MICROSCOPIC - URINE CULTURE 4. Essential hypertension, benign - ICD9: 401.1, ICD10: I10 - poor control - Add amlodipine (Norvasc) - Recommended regular aerobic exercise. - Follow up in 1 month for BP recheck. - Goal of BP <130/80 - Recommended no refined sugar, low refined starch, healthy oil intake (olive oil), healthy protein (fish) along the lines of the Mediterranean diet. 5. Nausea and vomiting in adult - ICD9: 787.01, ICD10: R11.2 - ONDANSETRON 4 MG DISINTEGRATING TABLET 6. Hypokalemia - ICD9: 276.8, ICD10: E87.6 - POTASSIUM CHLORIDE ER 10 MEQ TABLET,EXTENDED RELEASE - BASIC METABOLIC PNL James Jordan APRN.JARVIS Prescription instructions reviewed with patient as applicable. Potential red flag symptoms discussed with the patient. Reviewed appropriate action plan to take if red flag symptoms occur. Patient agreeable to treatment plan. CNOV Observed: 03/18/2018 Status: COMPLETED Source: [place] 10:00 AM [facility] HOSPITAL REPOSITORY Office Visit (INTMWS) GILMA MILLER ([id number]) 1970 F T Date Time Provider Department 03/18/18 10:00 AM JAMES JORDAN ([facility]) INTMWS During your visit today, we recorded the following information about you: Temperature Pulse Respiration Blood pressure 97.7 degrees 76/minute 16/minute 160/110 Weight 83.5 kg James JordanCARA.JARVIS 03/18/2018 3:45 PM Signed CC: Patient presents with: Abdominal Pain: Trouble breathing, pain with inhaling, vomitting,back pain, indigestion x 1 week HPI Gilma Miller is a 47 year old female who presents today for ongoing abdominal pain x1 week. Patient was evaluated at [facility] ER 02/15/18 for complaints of abdominal pain that radiates to the back and vomiting for 1 week. She was noted to be hypertensive at 190/70. Abdominal Xray showed Mild fecal stasis CT abdomen showed No acute intra-abdominal process. Noted small umbilical hernia and appendix was not visualized. Labs: UA showed +bilirubin, ketones, protein, leuks, WBC and RBC CMP showed elevated AST/ALT, tot bilirubin and hypokalemia No additional work up completed and patient was discharged home following administration of IVF. She presents today with continued complaints of mid-epigastric pain, back pain resolved. Associated symptoms include nausea and vomiting with most meals. She denies any fever, chills or diarrhea. Complains of irregular BMs. Denies any black or bloody stools. States she has been avoiding most fried foods, does drink a lot of pop and ~2 cups of coffee a day. Denies heartburn, excessive belching or flatus. Also denies any urinary symptoms, except notes her urine was very dark yesterday. REVIEW OF SYSTEMS General: no fevers, no chills, no recurrent infections, no change in appetite, no change in energy and no significant changes in weight HEENT: no frequent or significant headaches, no nose bleeds, no sinus or nasal problems Respiratory: no cough, no wheezing, no shortness of breath, no hemoptysis Cardiovascular: no chest pain, no chest pressure, no palpitations and no swelling GI: See HPI : No history of dysuria, frequency or incontinence PAST MEDICAL HISTORY Diagnosis Date - Acute cholecystitis - Chronic low back pain - HTN (hypertension) PAST SURGICAL HISTORY Procedure Laterality Date - LAPAROSCOPIC CHOLEYCYSTECTOMY 05/23/2015 - REMOVAL OF TONSILS,<12 Y/O Tonsillectomy - TUBAL LIGATION HX 1993 - VAGINAL HYSTERECTOMY 2014 ALLERGIES Mobic [Meloxicam]; Naproxen; Prednisone; Tylenol #3 [Codeine]; Vicodin [Hydrocodone-Acetaminophen] MEDICATIONS Blood Pressure Cuff - Home Use BLOOD PRESSURE CUFF FOR HOME USE. DX: LABILE BLOOD PRESSURE 401.01 COMPOUNDED PRESCRIPTION Blood pressure machineDX: COMPOUNDED PRESCRIPTION Blood pressure cuffICD Code: I10 lisinopril-hydrochlorothiazide (PRINZIDE,ZESTORETIC) 20-12.5 mg per tablet Take 1 tablet by mouth twice daily. mineral oil/hydrophil petrolatum (AQUAPHOR) oint Apply 1 application to affected area twice daily as needed. white petrolatum (AQUAPHOR HEALING) ointment Apply 1 application to affected area twice daily. FAMILY HISTORY Problem Relation Age of Onset - Hypertension Mother - Hypertension Father - Coronary Artery Disease Mother - Coronary Artery Disease Father - Cancer Mother Breast - Cancer Father Lung Social History Substance Use Topics - Smoking status: Never Smoker - Smokeless tobacco: Never Used - Alcohol use No PHYSICAL EXAM BP 164/108 Pulse 76 Temp 36.5 ?C (97.7 ?F) (Temporal Artery) Resp 16 Wt 83.5 kg (184 lb) LMP 09/26/2014 (Exact Date) SpO2 95% BMI 32.59 kg/m? General Appearance: in no acute distress, alert Skin: Skin color, texture, turgor normal for age; Head: normocephalic, atraumatic Lungs: lungs clear to auscultation. No wheezing, rhonchi, rales Heart: RRR without murmur, gallop, or rubs. No ectopy Abdomen: Abdomen soft, non-tender. Bowel sounds normal. No masses, organomegaly, Negative CVA tenderness, Positive findings: tenderness mild to moderate epigastric BP CONTROLLED (<130/80) due on 06/22/1987 LIPID SCREEN due on 2014 DIABETES SCREEN due on 2014 INFLUENZA(1) due on 12/07/2017 ANNUAL PCP TEAM CHRONIC DISEASE VISIT due on 09/03/2018 MAMMOGRAM due on 09/20/2018 DTAP,TDAP,TD(2 - Td) due on 06/16/2019 PAP EVERY 5 YEARS due on 09/18/2019 HPV EVERY 5 YEARS due on 09/18/2019 ASSESSMENT/PLAN: 1. Epigastric pain - ICD9: 789.06, ICD10: R10.13 (primary diagnosis) Etiology unclear Differential Diagnosis includes GERD, Gastritis, Constipation, Appendicitis- (appendix not visualized on CT imaging, no WBC elevation) and Cystitis - Begin treatment with Prilosec 20 mg QD - Labs of Urine analysis - Wilmore low residue diet - Treatment for constipation discussed - Follow up in to be determined by laboratory studies or sooner if worsening of symptoms 2. Elevated liver enzymes - ICD9: 790.5, ICD10: R74.8 - HEP REMOTE PANEL BL - HEP A AB TOTAL - GGT BLD 3. Flank pain - ICD9: 789.09, ICD10: R10.9 - URINALYSIS WITH MICROSCOPIC - URINE CULTURE 4. Essential hypertension, benign - ICD9: 401.1, ICD10: I10 - poor control - Add amlodipine (Norvasc) - Recommended regular aerobic exercise. - Follow up in 1 month for BP recheck. - Goal of BP <130/80 - Recommended no refined sugar, low refined starch, healthy oil intake (olive oil), healthy protein (fish) along the lines of the Mediterranean diet. 5. Nausea and vomiting in adult - ICD9: 787.01, ICD10: R11.2 - ONDANSETRON 4 MG DISINTEGRATING TABLET 6. Hypokalemia - ICD9: 276.8, ICD10: E87.6 - POTASSIUM CHLORIDE ER 10 MEQ TABLET,EXTENDED RELEASE - BASIC METABOLIC PNL James Jordan APRN.HYDRAULIC CHAIR ASSEMBLER Prescription instructions reviewed with patient as applicable. Potential red flag symptoms discussed with the patient. Reviewed appropriate action plan to take if red flag symptoms occur. Patient agreeable to treatment plan. Referring Provider: SELF [[id number]] Allergies As of Date: 03/18/2018 Noted Allergy Reaction MOBIC (MELOXICAM) 10/24/2009 4 - Hives NAPROXEN 10/24/2009 8 - GI Upset PREDNISONE 11/07/2009 4 - Hives 12 - Shortness of Breath TYLENOL #3 (CODEINE) 10/24/2009 4 - Hives VICODIN (HYDROCODONE-ACETAMINOPHE*09/27/2014 8 - GI Upset Comments: Nausea Date Reviewed: 03/18/2018 Reviewed by: Libia Queen Ma - Fully Assessed Reason for Visit: Abdominal Pain [1] Cmt: Trouble breathing, pain with inhaling, vomitting,back pain, indigestion x 1 week Reason For Visit History Recorded Primary Visit Diagnosis:Epigastric pain [R10.13] Other Visit Diagnoses:Elevated liver enzymes [R74.8] Flank pain [R10.9] Essential hypertension, benign [I10] Nausea and vomiting in adult [R11.2] Hypokalemia [E87.6] Order(s):HEP REMOTE PANEL BL [SQHREMOP] Order #: [id number] FUTURE HEP A AB TOTAL [SQAHAVT] Order #: [id number] FUTURE GGT BLD [SQGGT] Order #: [id number] FUTURE polyethylene glycol 3350 (MIRALAX, GLYCOLAX) 17 gram/dose powderTake 17 g by mouth twice daily. Drink a mix of 1 scoop in 8oz of water/beverage once daily as needed for constipation.Disp: 1 BottleRfl: 0 URINALYSIS WITH MICROSCOPIC [SQUAWMIC] Order #: [id number]. #:[id number] URINE CULTURE [SQURCUL] Order #: [id number] FUTURE amLODIPine (NORVASC) 5 mg tabletTake 1 tablet by mouth once daily.Disp: 30 tabletRfl: 0 omeprazole (PRILOSEC) 20 mg capsuleTake 1 capsule by mouth daily before breakfast.Disp: 30 capsuleRfl: 2 ondansetron orally disintegrating (ZOFRAN ODT) 4 mg disintegrating tabletTake 1 tablet by mouth every 6 hours as needed for Nausea/Vomiting.Disp: 10 tabletRfl: 0 potassium chloride (K-TAB) 10 mEq tabletTake 1 tablet by mouth daily with breakfast.Disp: 4 tabletRfl: 0 BASIC METABOLIC PNL [SQBMP] Order #: [id number] FUTURE Prescriptions as of 03/18/2018 Sig: AMLODIPINE 5 MG TABLET Take 1 tablet by mouth once d* COMPOUNDED PRESCRIPTION BLOOD PRESSURE CUFF FOR HOME * COMPOUNDED PRESCRIPTION Blood pressure machine DX: COMPOUNDED PRESCRIPTION Blood pressure cuff ICD Code* LISINOPRIL 20 MG-HYDROCHLOROT* Take 1 tablet by mouth twice * MINERAL OIL-HYDROPHIL PETROLA* Apply 1 application to affect* OMEPRAZOLE 20 MG CAPSULE,ANGELINA* Take 1 capsule by mouth daily* ONDANSETRON 4 MG DISINTEGRATI* Take 1 tablet by mouth every * POLYETHYLENE GLYCOL 3350 17 G* Take 17 g by mouth twice soledad* POTASSIUM CHLORIDE ER 10 MEQ * Take 1 tablet by mouth daily * WHITE PETROLATUM 41 % TOPICAL* Apply 1 application to affect* Problem List As Of Date 03/18/2018 Noted Resolved Essential Hypertension, Benign [I10] INVALID FOR* More... Chronic low back pain [M54.5, G89.29] INVALID FOR* More... Heavy menses [N92.0] INVALID FOR*10/20/2014 Abnormal uterine bleeding [N93.9] INVALID FOR*10/20/2014 Irregular bleeding [N92.6] INVALID FOR*10/20/2014 Mixed incontinence [N39.46] INVALID FOR* Prescriptions ordered this encounter Disp Refills Start End POLYETHYLENE GLYCOL 3350 17 GRAM/DOS* 1 Jarrett* 0 03/18/2018 Route: ORAL Sig: Take 17 g by mouth twice daily. Drink a mix of 1 scoop in 8oz of water/beverage once daily as needed for constipation. OMEPRAZOLE 20 MG CAPSULE,DELAYED REL* 30 c* 2 03/18/2018 03/18/2018 Route: ORAL Sig: Take 1 capsule by mouth daily before breakfast. ONDANSETRON 4 MG DISINTEGRATING TABL* 10 t* 0 03/18/2018 03/18/2018 Route: ORAL Sig: Take 1 tablet by mouth every 6 hours as needed for Nausea/Vomiting. POTASSIUM CHLORIDE ER 10 MEQ TABLET,* 4 ta* 0 03/18/2018 03/18/2018 Route: ORAL Sig: Take 1 tablet by mouth daily with breakfast. AMLODIPINE 5 MG TABLET 30 t* 0 03/18/2018 Route: ORAL Sig: Take 1 tablet by mouth once daily. OMEPRAZOLE 20 MG CAPSULE,DELAYED REL* 30 c* 2 03/18/2018 Route: ORAL Sig: Take 1 capsule by mouth daily before breakfast. ONDANSETRON 4 MG DISINTEGRATING TABL* 10 t* 0 03/18/2018 Route: ORAL Sig: Take 1 tablet by mouth every 6 hours as needed for Nausea/Vomiting. POTASSIUM CHLORIDE ER 10 MEQ TABLET,* 4 ta* 0 03/18/2018 Route: ORAL Sig: Take 1 tablet by mouth daily with breakfast. Medications Discontinued During This Encounter potassium chloride (K-TAB) 10 mEq ta* 4 ta* 0 03/18/2018 03/18/2018 Route: ORAL Sig: Take 1 tablet by mouth daily with breakfast. Disc: Reason for discontinue is not on file. ondansetron orally disintegrating (Z* 10 t* 0 03/18/2018 03/18/2018 Route: ORAL Sig: Take 1 tablet by mouth every 6 hours as needed for Nausea/Vomiting. Disc: Reason for discontinue is not on file. omeprazole (PRILOSEC) 20 mg capsule 30 c* 2 03/18/2018 03/18/2018 Route: ORAL Sig: Take 1 capsule by mouth daily before breakfast. Disc: Reason for discontinue is not on file. Follow-up and Disposition History Recorded Encounter Status:Closed by JAMES JORDAN CNP on 03/18/18 EMERGENCY DEPARTMENT Observed: 03/17/2018 Status: F Source: [place] SUMMARY 11:00 PM [facility] Medical Records Department [address] [place] [address] Emergency Department Summary 03/17/182031 MR#: [id number] Acct: [id number] Name: GILMA MILLER Rep #: [id number] : 1970 47 From: Reena Olivier MD PCP: Julita Bryant MD Status: DEP ER - ER Visit Summary Date of Service: 03/17/18 Chief Complaint: [] Abdominal pain radiating to the back for days vomiting History of Present Illness: The patient is a 47 F [] history for days she was seen recently in the emergency department workup was unremarkable she reports she continues to have basically pain she points to the umbilical area reports the pain radiates around to both backs right and left she has had intermittent vomiting she has had normal bowel habits normal urinary habits she denies any history of DC PE DVT or any GI elements Physical Examination: [] 190/70 afebrile General, no distress resting comfortably HEENT is generally unremarkable The neck is supple no adenopathy Cardiovascular, regular rate and rhythm Lungs, clear bilateral Abdomen, soft nontender cannot reproduce her pain but again she takes both hands and draws it to both flanks to her back complaint discomfort here there is no pulsation rebound guarding organomegaly Extremities, no clubbing cyanosis or edema Neurologic, awake alert answering questions appropriately moving all 4 extremities Test Results: [] Emergency Department Course and Treatment: [] IV fluids screening labs CT abdomen Screening labs and abdominal CT are all generally unremarkable nothing acute see those reports Explained all the above to her that the exact etiology of this pain that she has had for days is unclear there is nothing on physical exam nothing on the CT of the laboratory evaluation he has a follow-up appointment scheduled tomorrow with her outpatient provider she will keep that appointment and return for change in symptoms and otherwise follow all of the prior instruction she was given for this abdominal pain Treatment Plan: [] Disposition: [] Home stable Impression: [] Abdominal pain etiology unclear This note was generated with [employer] software. It may contain incorrect words, spelling, and punctuation that were not noted in review of the chart prior to signing ED Disposition - Plan for ED Patient: Chief Complaint: Flank Pain Referrals: Julita Bryant MD [Primary Care Provider] - What to do if you have Problems For any increased pain, shortness of breath, bleeding, nausea or vomiting, chest pain, or any unexpected problems, contact your Primary Care Provider. Call [facility] ([phone]) or report to the closest Emergency Room. Call 911 if necessary. 03/17/18 2300 <Electronically signed by Reena Olivier MD> Date Reena Olivier MD Cosigner Signature (If Indicated): Date CC: Julita Bryant MD DISCHARGE INSTRUCTION Observed: 03/17/2018 Status: F Source: [place] 9:25 PM [facility] Medical Records Department [address] [place] [address] Discharge Instruction 03/17/185 MR#: [id number] Acct: [id number] Name: GILMA MILLER Rep #: [id number] : 1970 47 From: Reena Olivier MD PCP: Julita Bryant MD Status: REG ER ED Disposition - Plan for ED Patient: Chief Complaint: Flank Pain Instructions: ED Flank Pain Uncertain Cause Referrals: Julita Bryant MD [Primary Care Provider] - What to do if you have Problems For any increased pain, shortness of breath, bleeding, nausea or vomiting, chest pain, or any unexpected problems, contact your Primary Care Provider. Call [facility] ([phone]) or report to the closest Emergency Room. Call 911 if necessary. 03/17/182124 <Electronically signed by Reena Olivier MD> Date Reena Olivier MD Cosigner Signature (If Indicated): Date CC: Julita Bryant MD URINALYSIS, COMPLETE Collected: 03/17/2018 Status: F Source: [place] 8:40 PM [facility] Order Comment: How was Urine Obtained? CLEAN CATCH TYPE CODE TESTS RESULT OUT OF RANGE REFERENCE UNITS LAB L400.3000 Yellow COLOR Normal Yellow LAB L400.3050 Clear Normal CLARITY Clear LAB L400.3200 Normal mg/dl Normal GLUCOSE, UR Normal LAB L400.3300 Negative mg/dL High BILIRUBIN URINE 1 Result Comment: YCOLOR OF URINE MAY AFFECT DIPSTICK RESULTS. LAB L400.3400 Negative mg/dl High KETONE UR 50 LAB L400.3465 1.002-1.030 Normal SP.GR. DIPSTX 1.020 LAB L400.3550 5.0 - 8.0 pH Normal UR 7.0 LAB L400.3600 Negative mg/dl High PROT DIPSTX 15 LAB L400.3700 Normal mg/dl High UROBILI 4 LAB L400.3750 Negative Normal NITRITE UR Negative LAB L400.3780 Negative /ul Normal OCCULT Negative BLOOD-UR LAB L400.3800 Negative /ul High LEUK ESTERASE 25 LAB L400.4050 0-5 /hpf Normal WBC 0-5 SEEN LAB L400.4100 0-5 /hpf Normal RBC-UA 0 SEEN LAB L400.4150 5-10 /hpf Normal SQUAM EPI 0-5 SEEN LAB L400.4350 <or=2+ /hpf Normal MUCUS, URINE 1+ Performed By: #### L400.0001 #### [facility] [address] [place], [address] CBC W/DIFF, AUTOMATED Collected: 03/17/2018 Status: F Source: [place] 8:33 PM [facility] TYPE CODE TESTS RESULT OUT OF RANGE REFERENCE UNITS LAB L100.1000 4.4-11.0 K/mm3 Normal WBC 8.4 LAB L100.1200 4.2-5.4 M/mm3 Normal RBC 5.14 LAB L100.1300 12.0-15.0 g/dl Normal HGB 14.3 LAB L100.1400 37-47 % Normal HCT 44.4 LAB L100.1500 81-99 fL Normal MCV 86.4 LAB L100.1600 27.0-32.0 pg Normal MCH 27.8 LAB L100.1700 32-36 g/gl Normal MCHC 32.2 LAB L100.1810 11.6-14.6 % High RDW CV 15.4 LAB L100.1820 35.1-43.9 fl High RDW SD 49.2 LAB L100.1900 150-450 K/mm3 Normal PLT 351 LAB L100.2000 6.2-12.0 fl Normal MPV 9.5 LAB L100.2100 47-70 % Normal NEUT% 67.8 LAB L100.2200 19-41 % Low LY% 15.8 LAB L100.2300 0-10 % High MONO% 11.2 LAB L100.2400 0-5 % Normal EO% 4.3 LAB L100.2500 0-1 % Normal BASO% 0.7 LAB L100.2550 0.0-0.9 % Normal IM GRAN % 0.200 Result Comment: IG% - Immature Granulocytes (promyelocytes, myelocytes and metamyelocytes) > 1% indicates that a LEFT SHIFT is Present. LAB L100.2620 2.0-7.7 X10 3/uL Normal Absolute Neut 5.7 LAB L100.2720 0.83-4.51 X10 3/ul Normal Absolute Lymph 1.32 Performed By: #### L100.0100 #### [facility] [address] [place], [place], [address] BASIC METABOLIC Collected: 03/17/2018 Status: F Source: [place] PROFILE (BMP) 8:33 PM [facility] TYPE CODE TESTS RESULT OUT OF RANGE REFERENCE UNITS LAB L501.0100 74-106 mg/dL Normal GLU 105 Result Comment: Fasting Glucose result from 100 to 125 mg/dL suggests IMPAIRED HOMEOSTASIS per A.D.A. criteria. Please note revised GLUCOSE reference range effective 2017. LAB L501.1000 7-18 mg/dL Normal BUN 8 LAB L501.1100 0.55-1.02 mg/dL Normal CREAT,SERUM 0.71 Result Comment: The validity of the calculated GFR AND GFRAA in patients over 70 years has not been determined. Clinical correlation is essential. LAB L501.1110 >60 mL/min Normal EST GFR 93 Result Comment: Non- GFR Calc LAB L501.1115 >60 mL/min Normal EST GFR - AA 112 Result Comment: GFR Calc LAB L501.1255 ml/min Normal Estimated CRCL 80.16 LAB L501.1300 10-20 RATIO Normal BUN/CRE 11.2 LAB L501.2200 8.5-10 mg/dL Normal .1 CA 8.6 LAB L501.5300 136-14 mmol/L Normal 5 NA 138 LAB L501.5600 3.5-5. mmol/L Low 1 K 3.3 LAB L501.5900 98-107 mmol/L Normal CL 103 LAB L501.6100 21.0-3 mmol/L Normal 2.0 CO2 29.0 LAB L501.6200 5-15 Normal GAP 6 Performed By: #### L500.2500, L500.3400, L501.2450, L501.4010 #### [facility] [address] [place], [address] LIVER PROFILE Collected: 03/17/2018 Status: F Source: [place] 8:33 PM [facility] TYPE CODE TESTS RESULT OUT OF RANGE REFERENCE UNITS LAB L501.1500 6.4-8.2 g/dL Normal T PROT 8.1 LAB L501.1800 3.2-5.0 g/dL Normal ALB 3.7 LAB L501.1950 2.2-4.2 g/dL High GLOB 4.4 LAB L501.4100 15-37 U/L High AST 226 LAB L501.4305 45-117 U/L High ALK P 272 LAB L501.4405 13-56 U/L High ALT 460 LAB L501.4600 0.20-1.00 mg/dL High T BILI 2.50 LAB L501.4700 0.00-0.30 mg/dL High D BILI 1.86 Performed By: #### L500.2500, L500.3400, L501.2450, L501.4010 #### [facility] [address] [place], [address] LIPASE Collected: 03/17/2018 Status: F Source: [place] 8:33 PM [facility] TYPE CODE TESTS RESULT OUT OF RANGE REFERENCE UNITS LAB L501.2450 73-393 U/L Normal LIPASE 182 Performed By: #### L500.2500, L500.3400, L501.2450, L501.4010 #### [facility] [address] [place], [address] TROPONIN-I Collected: 03/17/2018 Status: F Source: [place] 8:33 PM [facility] TYPE CODE TESTS RESULT OUT OF RANGE REFERENCE UNITS LAB L501.4010 <0.045 ng/mL Normal < 0.015 TROPONIN-I Result Comment: TROPONIN-I EXPECTED VALUES <0.045 Negative 0.045 - 0.590 Consistent with Cardiac Damage > OR = 0.600 Critical Value Not every elevated troponin is indicative of DC. These values should be used with clinical judgement in examining the patient's clinical picture for diagnosis. To establish a diagnosis of DC versus myocardial injury, there must be a demonstrated rise and/or fall in the troponin values, in addition to ischemic symptoms, EKG changes, new regional wall motion abnormality, and/or angiographical evidence. PLEASE NOTE: REFERENCE RANGES EDITED 17 Performed By: #### L500.2500, L500.3400, L501.2450, L501.4010 #### [facility] [address] [place], [address] ABDOMEN/PELVIS WITHOUT Observed: 03/17/2018 Status: F Source: [facility] 8:22 PM [facility] [place] Imaging Services [address] [place] [address] Abdomen/Pelvis without Cont MR#: [id number] Acct: [id number] Name: GILMA MILLER Rep #: [id number] : 1970 F 47 From: Leah Willson MD PCP: Julita Bryant MD Status: REG ER Study: Abdomen/Pelvis without Cont Date of Exam: 03/17/18 Exam# [id number] Ordering Dr: Reena Olivier MD STUDY: CT ABDOMEN AND PELVIS WITHOUT CONTRAST REASON FOR EXAM: Female, 47 years old. Bilateral flank pain. RADIATION DOSAGE (If Supplied By Facility): CTDIvol = ( 11.30 ) mGy, DLP = ( 618.46 ) mGycm TECHNIQUE: Transaxial images were obtained from the dome of the diaphragm to the symphysis pubis without oral contrast, and without intravenous contrast. Sagittal and coronal images were reconstructed. Individualized dose optimization techniques were used for this CT. COMPARISON: September 12, 2014 FINDINGS: The visualized lung bases are unremarkable. The visualized portions of the heart are within normal limits. Normal liver. There is evidence of prior cholecystectomy. Normal spleen. Normal pancreas. Normal bilateral adrenal glands. Normal right kidney. Normal left kidney. Normal visualized stomach. Normal small intestine. Normal colon. There is non-visualization of the appendix. Normal abdominal aorta. Normal inferior vena cava. Normal retroperitoneum. Normal urinary bladder. There is evidence of prior tubal ligation. There is a small umbilical hernia containing fat. Normal osseous structures. CT/Abdomen/Pelvis without Cont IMPRESSION: No acute intra-abdominal process. Electronically Signed: Leah Willson MD at 21:12 EST Tel , Service support , CC: MD Heidy Olivier; Julita Bryant MD System Sales Consultant: Signed 12 LEAD ELECTROCARDIOGRAM Observed: 03/17/2018 Status: F Source: [place] 2:52 PM [facility] Cardiovascular Services [address] [place] [address] 12 Lead EKG 03/14/18 0134 MR#: [id number] Acct: [id number] Name: FELICITAS MILLERBLAINE Fernandez Rep #: [id number] : 1970 47 From: Jose Juan Matias MD Attending Dr: Status: DEP ER Ordering Dr: Cassie Celis MD Date: 03/14/18 Location: ED Sex: F C Admitted: Test Reason : Blood Pressure : / mmHG Vent. Rate : 090 BPM Atrial Rate : 090 BPM P-R Int : 156 ms QRS Dur : 082 ms QT Int : 378 ms P-R-T Axes : 012 001 003 degrees QTc Int : 462 ms Normal sinus rhythm Nonspecific T wave abnormality Prolonged QT Abnormal ECG Confirmed by MARLENI MCKEE, JOSE JUAN ([id number]), video news editor GILMA ALONZO ([id number]) on 03/17/2018 2:51:58 PM Referred By: CRISPIN Confirmed By:JOSE JUAN MATIAS MD 03/17/18 1452 Date Jose Juan Matias MD CC: Julita Bryant MD; Cassie Celis MD Signed 12 LEAD ELECTROCARDIOGRAM Observed: 03/17/2018 Status: F Source: [place] 2:52 PM [facility] Cardiovascular Services [address] [place] [address] 12 Lead EKG 03/14/18 0435 MR#: [id number] Acct: [id number] Name: RADHAGILMA Rep #: [id number] : 1970 47 From: Jose Juan Matias MD Attending Dr: Status: DEP ER Ordering Dr: Cassie Celis MD Date: 03/14/18 Location: ED Sex: F C Admitted: Test Reason : REPEAT Blood Pressure : / mmHG Vent. Rate : 085 BPM Atrial Rate : 085 BPM P-R Int : 150 ms QRS Dur : 080 ms QT Int : 428 ms P-R-T Axes : 011 000 -02 degrees QTc Int : 509 ms Normal sinus rhythm Minimal voltage criteria for LVH, may be normal variant Nonspecific T wave abnormality Prolonged QT Abnormal ECG Confirmed by JOSE JUAN MATIAS MD ([id number]), video news editor GILMA ALONZO ([id number]) on 03/17/2018 2:52:17 PM Referred By: CRISPIN Confirmed By:JOSE JUAN MATIAS MD 03/17/18 1452 Date Jose Juan Matias MD CC: Julita Bryant MD; Cassie Celis MD Signed EMERGENCY DEPARTMENT Observed: 03/14/2018 Status: F Source: [place] SUMMARY 5:59 AM [facility] [facility] Medical Records Department [address] [place] [address] Emergency Department Summary 03/14/18 0131 MR#: [id number] Acct: [id number] Name: RADHAGILMA C Rep #: [id number] : 1970 47 From: Cassie Celis MD PCP: Julita Bryant MD Status: DEP ER - ER Visit Summary Date of Service: 03/14/18 Chief Complaint: Abdominal pain History of Present Illness: The patient is a 47 F who presents for 1 day of abdominal pain. Patient is complaining of epigastric abdominal pain that will radiate up into the chest and into the mid abdomen bilaterally. Patient states the pain feels crampy. She has associated nausea but no vomiting or diarrhea. She is passing flatus. She denies fever, shortness of breath, cough or congestion, constipation, urinary symptoms, back pain. She has not tried any medicine for the discomfort. She has a history of cholecystectomy. She has history of hypertension and is on hypertension medications. Does not smoke or drink alcohol. No history of coronary artery disease. Patient's last meal was pizza for dinner. Physical Examination: Vital signs: afebrile, hemodynamically stable, no hypoxia on room air General: well nourished, well developed, in no distress Skin: warm, dry, no rash, no pallor HEENT: normocephalic and atraumatic; PERRL, EOMI, moist mucous membranes Cardiovascular: regular rate and rhythm without murmurs, no peripheral edema, 2+ pulses all distal extremities Respiratory: No increased work of breathing, lungs are clear to auscultation bilaterally, no rales, rhonchi or wheezing Abdominal: Abdomen is soft, low epigastric tenderness with normoactive bowel sounds, no guarding or rebound, no rigidity, no masses MSK: Moves all extremities, no deformities, normal strength Neuro: Awake and alert, oriented 4. No facial droop, sensation and motor function intact and symmetric Test Results: Abnormal Lab Results WBC RBC Hgb Hct MCV MCH MCHC RDW RDW Differential Clinical Impression(s) from Imaging Studies Acute Abdomen Series 03/14/18 01:28 IMPRESSION: No acute findings in the abdomen or chest. Mild fecal stasis Electronically Signed: Nazario Amos MD at 2:48 EST Tel , Service support , Medications Given Discontinued Medications Al Hydroxide/Mg Hydroxide (Mylanta Ii) 30 ml PO X1 ONE Stop: 03/14/18 01:28 Last Admin: 03/14/18 01:39 Dose: 30 ml Dicyclomine HCl (Bentyl) 20 mg PO X1 ONE Stop: 03/14/18 01:28 Last Admin: 12 01:39 Dose: 20 mg Lidocaine HCl (Xylocaine Viscous) 15 ml PO X1 ONE Stop: 03/14/18 01:28 Last Admin: 03/14/18 01:39 Dose: 15 ml Multi-Ingredient GI Drug () 1 each PO X1 ONE Stop: 03/14/18 01:28 Last Admin: 03/14/18 01:44 Dose: Not Given Emergency Department Course and Treatment: Patient presents with several hours of epigastric discomfort radiating into the substernal region and also going to the abdomen. Patient presents because she is concerned it could be her heart. Her pain is crampy and she describes it like indigestion. She does have some lower epigastric tenderness on palpation. Given substernal chest pain along with the epigastric discomfort, workup performed to look for intra-abdominal and intrathoracic pathology. EKG shows sinus rhythm without ischemic changes. Troponin negative. Patient had no leukocytosis, anemia, electrolyte derangements, hepatic derangements or elevated lipase. Patient was given a GI cocktail and a dose of Bentyl, and had improvement in her pain. Patient has been having several hours of symptoms, and if the substernal discomfort was related to acute coronary syndrome, I would expect to see changes on the troponin repeat EKG. Patient is low risk for acute coronary syndrome, with a heart score of 3 for age, story and one risk factor of hypertension. Patient was amenable to a 3-hour repeat EKG and troponin. EKG showed sinus rhythm with no changes and repeat troponin remained negative. Patient was reevaluated again and had no discomfort. Her symptoms were resolved. She was given a prescription for Bentyl for her crampy abdominal pain and a prescription for Phenergan any nausea symptoms. Patient will follow up with her primary care provider. Patient discharged home with symptoms resolved. Treatment Plan: [] Disposition: [] Impression: abdominal pain, indigestion This note was generated with [employer] dictation software. It may contain incorrect words, spelling, and punctuation that were not noted in review of the chart prior to signing ED Disposition - Plan for ED Patient: Disposition: Home or Assisted Living Chief Complaint: Abd Pain Instructions: ED Abdominal Pain Unkn Cause, ED GERD Prescriptions: proMETHazine tablet [Phenergan tablet] 25 mg PO Q6H PRN PRN #15 tab PRN Reason: Nausea RX: Dicyclomine HCl [Bentyl] 20 mg PO TIDAC #20 cap Referrals: Julita Bryant MD [Primary Care Provider] - 1 Week if not improving Additional Instructions: If you have any worsening of your condition or any new concerning symptoms, please return immediately to the emergency department for another evaluation. What to do if you have Problems For any increased pain, shortness of breath, bleeding, nausea or vomiting, chest pain, or any unexpected problems, contact your Primary Care Provider. Call [facility] ([phone]) or report to the closest Emergency Room. Call 911 if necessary. 03/14/18 0559 <Electronically signed by Cassie Celis MD> Date Cassie Celis MD Cosigner Signature (If Indicated): Date CC: Julita Bryant MD DISCHARGE INSTRUCTION Observed: 03/14/2018 Status: F Source: [place] 5:59 AM [facility] Medical Records Department [address] [place] [address] Discharge Instruction 03/14/18 0506 MR#: [id number] Acct: [id number] Name: GILMA MILLER Rep #: [id number] : 1970 47 From: Cassie Celis MD PCP: Julita Bryant MD Status: DEP ER ED Disposition - Plan for ED Patient: Disposition: Home or Assisted Living Chief Complaint: Abd Pain Instructions: ED Abdominal Pain Unkn Cause, ED GERD Prescriptions: proMETHazine tablet [Phenergan tablet] 25 mg PO Q6H PRN PRN #15 tab PRN Reason: Nausea Dicyclomine HCl [Bentyl] 20 mg PO TIDAC #20 cap Referrals: Julita Bryant MD [Primary Care Provider] - 1 Week if not improving Additional Instructions: If you have any worsening of your condition or any new concerning symptoms, please return immediately to the emergency department for another evaluation. What to do if you have Problems For any increased pain, shortness of breath, bleeding, nausea or vomiting, chest pain, or any unexpected problems, contact your Primary Care Provider. Call [facility] ([phone]) or report to the closest Emergency Room. Call 911 if necessary. 03/14/18 0559 <Electronically signed by Cassie Celis MD> Date Cassie Celis MD Cosigner Signature (If Indicated): Date CC: Julita Bryant MD TROPONIN-I Collected: 03/14/2018 Status: F Source: [place] 4:31 AM [facility] Order Comment: 'TROP' Serial specimen #1, #2 or #3: 2 Comments: this is a TIMED REPEAT troponin (04:30) TYPE CODE TESTS RESULT OUT OF RANGE REFERENCE UNITS LAB L501.4010 <0.045 ng/mL Normal < 0.015 TROPONIN-I Result Comment: TROPONIN-I EXPECTED VALUES <0.045 Negative 0.045 - 0.590 Consistent with Cardiac Damage > OR = 0.600 Critical Value Not every elevated troponin is indicative of DC. These values should be used with clinical judgement in examining the patient's clinical picture for diagnosis. To establish a diagnosis of DC versus myocardial injury, there must be a demonstrated rise and/or fall in the troponin values, in addition to ischemic symptoms, EKG changes, new regional wall motion abnormality, and/or angiographical evidence. PLEASE NOTE: REFERENCE RANGES EDITED 17 Performed By: #### L501.4010 #### [facility] [place], [address] CBC W/DIFF, AUTOMATED Collected: 03/14/2018 Status: F Source: [place] 1:35 AM [facility] TYPE CODE TESTS RESULT OUT OF RANGE REFERENCE UNITS LAB L100.1000 4.4-11.0 K/mm3 Normal WBC 7.6 LAB L100.1200 4.2-5.4 M/mm3 Normal RBC 5.07 LAB L100.1300 12.0-15.0 g/dl Normal HGB 14.2 LAB L100.1400 37-47 % Normal HCT 43.2 LAB L100.1500 81-99 fL Normal MCV 85.2 LAB L100.1600 27.0-32.0 pg Normal MCH 28.0 LAB L100.1700 32-36 g/gl Normal MCHC 32.9 LAB L100.1810 11.6-14.6 % High RDW CV 15.2 LAB L100.1820 35.1-43.9 fl High RDW SD 47.2 LAB L100.1900 150-450 K/mm3 Normal PLT 363 LAB L100.2000 6.2-12.0 fl Normal MPV 9.5 LAB L100.2100 47-70 % Normal NEUT% 64.1 LAB L100.2200 19-41 % Normal LY% 22.6 LAB L100.2300 0-10 % High MONO% 10.5 LAB L100.2400 0-5 % Normal EO% 2.0 LAB L100.2500 0-1 % Normal BASO% 0.7 LAB L100.2550 0.0-0.9 % Normal IM GRAN % 0.100 Result Comment: IG% - Immature Granulocytes (promyelocytes, myelocytes and metamyelocytes) > 1% indicates that a LEFT SHIFT is Present. LAB L100.2620 2.0-7.7 X10 3/uL Normal Absolute Neut 4.9 LAB L100.2720 0.83-4.51 X10 3/ul Normal Absolute Lymph 1.73 Performed By: #### L100.0100 #### [facility] [address] [place], [address] COMPREHENSIVE METABOLIC Collected: 03/14/2018 Status: F Source: [facility] 1:35 AM [facility] TYPE CODE TESTS RESULT OUT OF RANGE REFERENCE UNITS LAB L501.0100 74-106 mg/dL High GLU 132 Result Comment: Fasting Glucose result greater than or equal to 126 mg/dL suggests DIABETES MELLITUS per A.D.A. criteria. Please note revised GLUCOSE reference range effective 2017. LAB L501.1000 7-18 mg/dL Normal BUN 14 LAB L501.1100 0.55-1.02 mg/dL Normal CREAT,SERUM 0.64 Result Comment: The validity of the calculated GFR AND GFRAA in patients over 70 years has not been determined. Clinical correlation is essential. LAB L501.1110 >60 mL/min Normal EST GFR 105 Result Comment: Non- GFR Calc LAB L501.1115 >60 mL/min Normal EST GFR - AA 127 Result Comment: GFR Calc LAB L501.1255 ml/min Normal Estimated CRCL 88.93 LAB L501.1300 10-20 RATIO High BUN/CRE 21.9 LAB L501.1500 6.4-8. g/dL Normal 2 T PROT 7.4 LAB L501.1800 3.2-5. g/dL Normal 0 ALB 3.5 LAB L501.1950 2.2-4. g/dL Normal 2 GLOB 3.9 LAB L501.2000 0.9-2. RATIO Normal 4 A/G 0.9 LAB L501.2200 8.5-10 mg/dL Low .1 CA 8.2 LAB L501.4100 15-37 U/L Normal AST 33 LAB L501.4305 45-117 U/L Normal ALK P 111 LAB L501.4405 13-56 U/L Normal ALT 21 LAB L501.4600 0.20-1 mg/dL Normal .00 T BILI 0.30 LAB L501.5300 136-14 mmol/L Normal 5 NA 138 LAB L501.5600 3.5-5. mmol/L Low 1 K 3.3 LAB L501.5900 98-107 mmol/L Normal CL 104 LAB L501.6100 21.0-3 mmol/L Normal 2.0 CO2 27.0 LAB L501.6200 5-15 Normal GAP 7 Performed By: #### L500.4050, L501.2450, L501.4010 #### [facility] [address] [facility] [place], [place], [address] LIPASE Collected: 03/14/2018 Status: F Source: [place] 1:35 AM [facility] TYPE CODE TESTS RESULT OUT OF RANGE REFERENCE UNITS LAB L501.2450 73-393 U/L Normal LIPASE 181 Performed By: #### L500.4050, L501.2450, L501.4010 #### [facility] [address] [facility] [place], [place], [address] TROPONIN-I Collected: 03/14/2018 Status: F Source: [place] 1:35 [facility] REPOSITORY TYPE CODE TESTS RESULT OUT OF RANGE REFERENCE UNITS LAB L501.4010 <0.045 ng/mL Normal < 0.015 TROPONIN-I Result Comment: TROPONIN-I EXPECTED VALUES <0.045 Negative 0.045 - 0.590 Consistent with Cardiac Damage > OR = 0.600 Critical Value Not every elevated troponin is indicative of DC. These values should be used with clinical judgement in examining the patient's clinical picture for diagnosis. To establish a diagnosis of DC versus myocardial injury, there must be a demonstrated rise and/or fall in the troponin values, in addition to ischemic symptoms, EKG changes, new regional wall motion abnormality, and/or angiographical evidence. PLEASE NOTE: REFERENCE RANGES EDITED 17 Performed By: #### L500.4050, L501.2450, L501.4010 #### [facility] [address] [place], [address] ,SERUM,HCG QUALI. Collected: Status: F Source: [place] 03/14/2018 1:35 AM [facility] TYPE CODE TESTS RESULT OUT OF REFERENCE UNITS RANGE LAB L700.6700 =>Qualitative mIU/mL Normal HCG Qual < 1 triggr LAB L700.7000 0-9 Nonpreg Negative Normal HCGSQUAL NEGATIVE Performed By: #### L700.6800 #### [facility] [address] [place], [address] ACUTE ABDOMEN INC Observed: 03/14/2018 Status: F Source: [place] CHEST 1:29 AM [facility] Imaging Services [address] [place] [address] Acute Abdomen Inc Chest MR#: [id number] Acct: [id number] Name: GILMA MILLER Rep #: [id number] : 1970 F 47 From: Nazario Amos MD PCP: Julita Bryant MD Status: REG ER Study: Acute Abdomen Inc Chest Date of Exam: 03/14/18 Exam# [id number] Ordering Dr: Cassie Celis MD STUDY: X-RAY - ACUTE ABDOMINAL SERIES REASON FOR EXAM: Female, 47 years old. Abdominal pain TECHNIQUE: Single view of the chest. Supine, 3 view(s) of the abdomen were obtained. COMPARISON: None. FINDINGS: There are mild fecal stasis. No bowel distention or free intraperitoneal air. Tubal ligation clips are seen in the pelvis. There are no abnormal calcifications in the urinary system. The accompanying chest radiograph is normal. RAD/Acute Abdomen Inc Chest IMPRESSION: No acute findings in the abdomen or chest. Mild fecal stasis Electronically Signed: Nazario Amos MD at 2:48 EST Tel , Service support , CC: Julita Bryant MD; Cassie Celis MD System Sales Consultant: Signed EMERGENCY DEPARTMENT Observed: 02/22/2018 Status: F Source: [place] SUMMARY 6:37 PM [facility] Medical Records Department [address] [place] [address] Emergency Department Summary 02/22/18 1833 MR#: [id number] Acct: [id number] Name: GILMA MILLER Rep #: [id number] : 1970 47 From: Hamlet Brown PCP: Julita Bryant MD Status: PRE ER - ER Visit Summary Date of Service: 02/22/18 Chief Complaint: Head injury History of Present Illness: The patient is a 47 F presents for evaluation of head injury occurring yesterday morning. Slipped on ice going out the house. The back of her head. No loss of consciousness. No nausea or vomiting. Later in the day noted anterior neck pain worse with movement. Patient did not take any anticoagulations. Is taking Aleve. States symptoms worsen with exertion. No previous similar symptoms in the past. No nausea or vomiting. Physical Examination: General: Alert and oriented 3, no acute distress HEENT: Normocephalic, atraumatic. No hemotympanum. No facial tenderness. Moist mucosa membranes Neck: supple, no midline neck tenderness. There is anterior cervical muscle tenderness. Reproducible. Cardiovascular: Regular rate and rhythm, no murmurs Respiratory: Normal breath sounds, symmetric, no distress Back: No midline tenderness. Abdomen: Soft, nontender, nondistended Extremities: Nontender, no edema, pulses intact 4 Neuro: no focal neurological deficits. Cranial nerves II through XII intact. Test Results: [] Emergency Department Course and Treatment: Patient no focal neurologic deficits. Complains of concussion symptoms. Patient no anticoagulation medicines. Discussed with patient her diagnosis. Discussed with concerns and wants further evaluation to rule out any bleeds can do a CT head. However states not indicated at this time. She had decision making, she agrees without image study at this time. Concussion precautions discussed along with information. Tylenol started. Discussed cervical neck strain. She will use Tylenol. She will monitor symptoms and follow-up with her PCP. Treatment Plan: [] Disposition: Discharge Impression: 1. Concussion without loss of consciousness 2. Anterior cervical neck muscle strain This note was generated with [employer] dictation software. It may contain incorrect words, spelling, and punctuation that were not noted in review of the chart prior to signing ED Disposition - Plan for ED Patient: Disposition: Home or Assisted Living Chief Complaint: Head Injury Diagnosis: Concussion without loss of consciousness, initial encounter, Neck muscle strain Instructions: ED Concussion, ED Sprain Strain Neck Referrals: Julita Bryant MD [Primary Care Provider] - 3-5 Days What to do if you have Problems For any increased pain, shortness of breath, bleeding, nausea or vomiting, chest pain, or any unexpected problems, contact your Primary Care Provider. Call [facility] ([phone]) or report to the closest Emergency Room. Call 911 if necessary. 02/22/18 1837 <Electronically signed by Hamlet Brown> Date Hamlet Brown Cosigner Signature (If Indicated): Date CC: Julita Bryant MD PROGRESS Observed: 12/31/2017 Status: COMPLETED Source: [place] 8:39 PM [facility] REPOSITORY HNO ID: [id number] Author: Natividad (Jarvis) Anastacia Service: (none) Author Type: Nurse Practitioner Type: Progress Notes Filed: 12/31/2017 8:47 PM Note Text: Subjective The history is provided by the patient and a relative. No parole or probation officer was used. FELIPE Miller is a 47 year old female who presents today for CC of nasal congestion And vomiting and diarrhea today. Onset/Duration: 2 days Alleviating/Treatment: Advil, increase fluids Aggravating: None known Risk factors: Co workers ill. BP 138/86 Pulse 85 Temp 36.4 ?C (97.6 ?F) (Tympanic) Resp 16 Wt 83.9 kg (184 lb 14.4 oz) LMP 09/26/2014 (Exact Date) SpO2 98% BMI 32.75 kg/m? 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 Negative for chills, fever and malaise/fatigue. HENT: Negative for congestion (nasal), ear pain, sinus pain and sore throat. Respiratory: Negative for cough, sputum production, shortness of breath and wheezing. Cardiovascular: Negative for chest pain. Gastrointestinal: Positive for abdominal pain (mild), diarrhea (x 1 day), nausea and vomiting (x2 episodes). Genitourinary: Negative for dysuria, frequency, hematuria and urgency. Musculoskeletal: Negative for myalgias. Skin: Negative for rash. Neurological: Negative for headaches. Objective Physical Exam Constitutional: She is oriented to person, place, and time and well-developed, well-nourished, and in no distress. HENT: Head: Normocephalic and atraumatic. Right Ear: Tympanic membrane, external ear and ear canal normal. Tympanic membrane is not injected, not erythematous, not retracted and not bulging. No middle ear effusion. Left Ear: Tympanic membrane, external ear and ear canal normal. Tympanic membrane is not injected, not erythematous, not retracted and not bulging. No middle ear effusion. Nose: Mucosal edema and rhinorrhea present. Right sinus exhibits no maxillary sinus tenderness and no frontal sinus tenderness. Left sinus exhibits no maxillary sinus tenderness and no frontal sinus tenderness. Mouth/Throat: Uvula is midline, oropharynx is clear and moist and mucous membranes are normal. No oropharyngeal exudate, posterior oropharyngeal edema, posterior oropharyngeal erythema or tonsillar abscesses. Eyes: Pupils are equal, round, and reactive to light. Conjunctivae and EOM are normal. Neck: Normal range of motion. Neck supple. Cardiovascular: Normal rate, regular rhythm and normal heart sounds. Pulmonary/Chest: Effort normal and breath sounds normal. No respiratory distress. She has no wheezes. She has no rales. Abdominal: Soft. Normal appearance. She exhibits no abdominal bruit, no pulsatile midline mass and no mass. Bowel sounds are hyperactive. There is no hepatosplenomegaly. There is generalized tenderness (mild). There is no rigidity, no rebound, no guarding, no CVA tenderness, no tenderness at McBurney's point and negative Smith's sign. Lymphadenopathy: Head (right side): No submental, no submandibular, no tonsillar, no preauricular and no posterior auricular adenopathy present. Head (left side): No submental, no submandibular, no tonsillar, no preauricular and no posterior auricular adenopathy present. She has no cervical adenopathy. Right cervical: No posterior cervical adenopathy present. Left cervical: No posterior cervical adenopathy present. Right: No supraclavicular adenopathy present. Left: No supraclavicular adenopathy present. Neurological: She is alert and oriented to person, place, and time. Skin: Skin is warm and dry. Psychiatric: Affect normal. Nursing note and vitals reviewed. ASSESSMENT/PLAN: 1. URI, acute - ICD9: 465.9, ICD10: J06.9 (primary diagnosis) - Discussed viral etiology and rationale for treatment. - Supportive care with fluids and rest - Rest, nutritious diet, Motrin or Tylenol as needed for fever or pain. Salt water gargles, chloraseptic spray or lozenges as needed for sore throat. Nasal saline irrigation at least 2 x day. Drink at least 8 glasses of fluids per day that aren't caffeinated. Use a humidifier in your room at night. A cold normally lasts 7-10 days. If your symptoms are lasting longer, develop fever, or worsening by that time instead of improving then return to clinic or follow up with PCP for re-evaluation. Tylenol (generic acetaminophen) 500 mg-2 tabs every 8 hrs. as needed for fever and aches Ibuprofen 600 mg (3-200mg tablets) every 6 hours 2. Nausea vomiting and diarrhea - ICD9: 787.91, 787.01, ICD10: R11.2, R19.7 Drink small sips of clear fluids to begin with. Advance to other liquids as tolerated. If tolerating liquids for several hours without vomiting, then you can try bland foods such as toast, crackers, etc. Advance to full diet when nausea/vomiting has completely resolved but avoid greasy, fatty, spicy foods for next several days. Monitor hydration and make sure urinate twice in 8 hours, light - yellow in color .Diagnosis and treatment plan were discussed and questions were answered to the patient's satisfaction. Pt acknowledged understanding of concepts and follow up plan. Specific signs and symptoms that would indicate the need for higher level of care were discussed in detail warranting prompt ER evaluation. Natividad Betancur APRN.CNP CNOV Observed: 12/31/2017 Status: COMPLETED Source: [place] 8:15 PM [facility] REPOSITORY Office Visit (W[facility]) GILMA MILLER ([id number]) 1970 F [facility] Date Time Provider Department 12/31/17 8:15 PM NATIVIDAD BETANCUR (JARVIS) [facility]STR During your visit today, we recorded the following information about you: Temperature Pulse Respiration Blood pressure 97.6 degrees 85/minute 16/minute 138/86 Weight 83.9 kg Natividad Betancur APRN.CNP 12/31/2017 8:33 PM Signed ASSESSMENT/PLAN: 1. URI, acute - ICD9: 465.9, ICD10: J06.9 (primary diagnosis) - Discussed viral etiology and rationale for treatment. - Supportive care with fluids and rest - Rest, nutritious diet, Motrin or Tylenol as needed for fever or pain. Salt water gargles, chloraseptic spray or lozenges as needed for sore throat. Nasal saline irrigation at least 2 x day. Drink at least 8 glasses of fluids per day that aren't caffeinated. Use a humidifier in your room at night. A cold normally lasts 7-10 days. If your symptoms are lasting longer, develop fever, or worsening by that time instead of improving then return to clinic or follow up with PCP for re-evaluation. Tylenol (generic acetaminophen) 500 mg-2 tabs every 8 hrs. as needed for fever and aches Ibuprofen 600 mg (3-200mg tablets) every 6 hours 2. Nausea vomiting and diarrhea - ICD9: 787.91, 787.01, ICD10: R11.2, R19.7 Drink small sips of clear fluids to begin with. Advance to other liquids as tolerated. If tolerating liquids for several hours without vomiting, then you can try bland foods such as toast, crackers, etc. Advance to full diet when nausea/vomiting has completely resolved but avoid greasy, fatty, spicy foods for next several days. Monitor hydration and make sure urinate twice in 8 hours, light - yellow in color Natividad Betancur APRN.CNP 12/31/2017 8:47 PM Signed Subjective The history is provided by the patient and a relative. No parole or probation officer was used. HPI Gilma Miller is a 47 year old female who presents today for CC of nasal congestion And vomiting and diarrhea today. Onset/Duration: 2 days Alleviating/Treatment: Advil, increase fluids Aggravating: None known Risk factors: Co workers ill. BP 138/86 Pulse 85 Temp 36.4 ?C (97.6 ?F) (Tympanic) Resp 16 Wt 83.9 kg (184 lb 14.4 oz) LMP 09/26/2014 (Exact Date) SpO2 98% BMI 32.75 kg/m? 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 Negative for chills, fever and malaise/fatigue. HENT: Negative for congestion (nasal), ear pain, sinus pain and sore throat. Respiratory: Negative for cough, sputum production, shortness of breath and wheezing. Cardiovascular: Negative for chest pain. Gastrointestinal: Positive for abdominal pain (mild), diarrhea (x 1 day), nausea and vomiting (x2 episodes). Genitourinary: Negative for dysuria, frequency, hematuria and urgency. Musculoskeletal: Negative for myalgias. Skin: Negative for rash. Neurological: Negative for headaches. Objective Physical Exam Constitutional: She is oriented to person, place, and time and well-developed, well-nourished, and in no distress. HENT: Head: Normocephalic and atraumatic. Right Ear: Tympanic membrane, external ear and ear canal normal. Tympanic membrane is not injected, not erythematous, not retracted and not bulging. No middle ear effusion. Left Ear: Tympanic membrane, external ear and ear canal normal. Tympanic membrane is not injected, not erythematous, not retracted and not bulging. No middle ear effusion. Nose: Mucosal edema and rhinorrhea present. Right sinus exhibits no maxillary sinus tenderness and no frontal sinus tenderness. Left sinus exhibits no maxillary sinus tenderness and no frontal sinus tenderness. Mouth/Throat: Uvula is midline, oropharynx is clear and moist and mucous membranes are normal. No oropharyngeal exudate, posterior oropharyngeal edema, posterior oropharyngeal erythema or tonsillar abscesses. Eyes: Pupils are equal, round, and reactive to light. Conjunctivae and EOM are normal. Neck: Normal range of motion. Neck supple. Cardiovascular: Normal rate, regular rhythm and normal heart sounds. Pulmonary/Chest: Effort normal and breath sounds normal. No respiratory distress. She has no wheezes. She has no rales. Abdominal: Soft. Normal appearance. She exhibits no abdominal bruit, no pulsatile midline mass and no mass. Bowel sounds are hyperactive. There is no hepatosplenomegaly. There is generalized tenderness (mild). There is no rigidity, no rebound, no guarding, no CVA tenderness, no tenderness at McBurney's point and negative Smith's sign. Lymphadenopathy: Head (right side): No submental, no submandibular, no tonsillar, no preauricular and no posterior auricular adenopathy present. Head (left side): No submental, no submandibular, no tonsillar, no preauricular and no posterior auricular adenopathy present. She has no cervical adenopathy. Right cervical: No posterior cervical adenopathy present. Left cervical: No posterior cervical adenopathy present. Right: No supraclavicular adenopathy present. Left: No supraclavicular adenopathy present. Neurological: She is alert and oriented to person, place, and time. Skin: Skin is warm and dry. Psychiatric: Affect normal. Nursing note and vitals reviewed. ASSESSMENT/PLAN: 1. URI, acute - ICD9: 465.9, ICD10: J06.9 (primary diagnosis) - Discussed viral etiology and rationale for treatment. - Supportive care with fluids and rest - Rest, nutritious diet, Motrin or Tylenol as needed for fever or pain. Salt water gargles, chloraseptic spray or lozenges as needed for sore throat. Nasal saline irrigation at least 2 x day. Drink at least 8 glasses of fluids per day that aren't caffeinated. Use a humidifier in your room at night. A cold normally lasts 7-10 days. If your symptoms are lasting longer, develop fever, or worsening by that time instead of improving then return to clinic or follow up with PCP for re-evaluation. Tylenol (generic acetaminophen) 500 mg-2 tabs every 8 hrs. as needed for fever and aches Ibuprofen 600 mg (3-200mg tablets) every 6 hours 2. Nausea vomiting and diarrhea - ICD9: 787.91, 787.01, ICD10: R11.2, R19.7 Drink small sips of clear fluids to begin with. Advance to other liquids as tolerated. If tolerating liquids for several hours without vomiting, then you can try bland foods such as toast, crackers, etc. Advance to full diet when nausea/vomiting has completely resolved but avoid greasy, fatty, spicy foods for next several days. Monitor hydration and make sure urinate twice in 8 hours, light - yellow in color .Diagnosis and treatment plan were discussed and questions were answered to the patient's satisfaction. Pt acknowledged understanding of concepts and follow up plan. Specific signs and symptoms that would indicate the need for higher level of care were discussed in detail warranting prompt ER evaluation. Natividad Betancur, CARA.HYDRAULIC CHAIR ASSEMBLER Referring Provider: SELF [[id number]] Allergies As of Date: 12/31/2017 Noted Allergy Reaction MOBIC (MELOXICAM) 10/24/2009 4 - Hives NAPROXEN 10/24/2009 8 - GI Upset PREDNISONE 11/07/2009 4 - Hives 12 - Shortness of Breath TYLENOL #3 (CODEINE) 10/24/2009 4 - Hives VICODIN (HYDROCODONE-ACETAMINOPHE*09/27/2014 8 - GI Upset Comments: Nausea Date Reviewed: 12/31/2017 Reviewed by: Natividad (Irrigation District Manager) Anastacia - Fully Assessed Reason for Visit: vomiting, runny nose and congestion [Other] Cmt: x 1 day- needs a work note Primary Visit Diagnosis:URI, acute [J06.9] Other Visit Diagnosis:Nausea vomiting and diarrhea [R11.2, R19.7] Prescriptions as of 12/31/2017 Sig: WHITE PETROLATUM 41 % TOPICAL* Apply 1 application to affect* LISINOPRIL 20 MG-HYDROCHLOROT* Take 1 tablet by mouth twice * MINERAL OIL-HYDROPHIL PETROLA* Apply 1 application to affect* COMPOUNDED PRESCRIPTION Blood pressure cuff ICD Code* COMPOUNDED PRESCRIPTION BLOOD PRESSURE CUFF FOR HOME * COMPOUNDED PRESCRIPTION Blood pressure machine DX: Problem List As Of Date 12/31/2017 Noted Resolved Essential Hypertension, Benign [I10] INVALID FOR* More... Chronic low back pain [M54.5, G89.29] INVALID FOR* More... Heavy menses [N92.0] INVALID FOR*10/20/2014 Abnormal uterine bleeding [N93.9] INVALID FOR*10/20/2014 Irregular bleeding [N92.6] INVALID FOR*10/20/2014 Mixed incontinence [N39.46] INVALID FOR* Other instructions from your clinician: ASSESSMENT/PLAN: 1. URI, acute - ICD9: 465.9, ICD10: J06.9 (primary diagnosis) - Discussed viral etiology and rationale for treatment. - Supportive care with fluids and rest - Rest, nutritious diet, Motrin or Tylenol as needed for fever or pain. Salt water gargles, chloraseptic spray or lozenges as needed for sore throat. Nasal saline irrigation at least 2 x day. Drink at least 8 glasses of fluids per day that aren't caffeinated. Use a humidifier in your room at night. A cold normally lasts 7-10 days. If your symptoms are lasting longer, develop fever, or worsening by that time instead of improving then return to clinic or follow up with PCP for re-evaluation. Tylenol (generic acetaminophen) 500 mg-2 tabs every 8 hrs. as needed for fever and aches Ibuprofen 600 mg (3-200mg tablets) every 6 hours 2. Nausea vomiting and diarrhea - ICD9: 787.91, 787.01, ICD10: R11.2, R19.7 Drink small sips of clear fluids to begin with. Advance to other liquids as tolerated. If tolerating liquids for several hours without vomiting, then you can try bland foods such as toast, crackers, etc. Advance to full diet when nausea/vomiting has completely resolved but avoid greasy, fatty, spicy foods for next several days. Monitor hydration and make sure urinate twice in 8 hours, light - yellow in color Letter Text Natividad Betancur APRN.CNP Urgent Care [address] [id number] Dept: [phone] 12/31/2017 Gilma Miller [address] [address] To Whom it May Concern: This is to certify that Gilma Miller was seen at our office for medical care. Gilma may return to work on 01.01.2018. If you have any questions please feel free to call. Sincerely: Natividad Betancur APRN.CNP Encounter Status:Closed by NATIVIDAD BETANCUR CNP on 12/31/17 EMERGENCY DEPARTMENT Observed: 11/24/2017 Status: F Source: [place] SUMMARY 8:04 AM [facility] Medical Records Department [address] [place] [address] Emergency Department Summary 11/23/17 1316 MR#: [id number] Acct: [id number] Name: GILMA MILLER Rep #: [id number] : 1970 47 From: Patrice Sanders DO PCP: Julita Bryant MD Status: DEP ER - ER Visit Summary Date of Service: 11/23/17 Chief Complaint: Headache History of Present Illness: The patient is a 47 F who states that yesterday at work she began to develop a sore throat which progressed then to nasal drainage postnasal drip headache and nausea. States that she feels chilled but has not had a recorded fever. She does not wish any shots because she does not do well with needles. Former smoker. She states that she believes she got sick by family members who have had similar symptoms. Physical Examination: Afebrile vital signs are stable Gen: Well-nourished well-developed Head: Normocephalic atraumatic Eyes: Perrl EOMI ENT: TMs clear clear rhinorrhea moist mucous membranes there is no pharyngeal erythema Neck: Supple scant lymphadenopathy no JVD nontender no meningitic signs CVS: Regular rate rhythm no murmurs normal S1-S2 Respiratory: No distress clear to auscultation bilaterally chest nontender Abdomen: Soft nontender nondistended normal bowel sounds no masses Back: Nontender Extremity: Nontender no edema Skin: Normal color no rash Neuro: alert orientated 3 CN II-XII intact normal strength sensation reflexes gait cerebellar Psych: Normal affect normal mood Emergency Department Course and Treatment: Patient received Toradol and Phenergan p.o. I will write for Phenergan at home to help with nausea. The patient most likely has a viral illness. Supportive care at home return if worsening or concerns or follow-up with primary care if not improving Impression: 1. Viral URI 2. Headache This note was generated with [employer] dictation software. It may contain incorrect words, spelling, and punctuation that were not noted in review of the chart prior to signing ED Disposition - Plan for ED Patient: Chief Complaint: Headache Instructions: ED URI Viral Prescriptions: proMETHazine tablet [Phenergan] 25 mg PO Q6H PRN PRN #10 tab PRN Reason: Nausea Ketorolac [Toradol] 10 mg PO Q8H PRN #10 tab PRN Reason: Migraine Symptoms Referrals: Julita Bryant MD [Primary Care Provider] - 3-5 Days if not improving What to do if you have Problems For any increased pain, shortness of breath, bleeding, nausea or vomiting, chest pain, or any unexpected problems, contact your Primary Care Provider. Call [facility] ([phone]) or report to the closest Emergency Room. Call 911 if necessary. 11/24/17 0804 <Electronically signed by Patrice Sanders DO> Date Patrice Sanders DO Cosigner Signature (If Indicated): Date CC: Julita Bryant MD PROGRESS Observed: 11/05/2017 Status: COMPLETED Source: [place] 1:02 PM [facility] RE[facility] HNO ID: [id number] Author: Stephanie (Jarvis) Podlogar Service: (none) Author Type: Nurse Practitioner Type: Progress Notes Filed: 11/05/2017 1:50 PM Note Text: 11/05/2017 Patient presents with: ER F/U SUBJECTIVE: This is a 47 year old that is here today for Above Complaints. Seen at [facility] [place] on 11/03/2017 for complaints for right foot pain. Pain had started a couple days prior without injury. Right foot x-ray completed and showed no visible abnormality. Was given naproxen po and post op shoe. Today she returns for follow-up. Pain is located on plantar aspect of right foot. Worse around the great toe. Described as a constant ache. Aggravated with putting pressure on it. Some relief with rest. Worse at night when sleeping. Has tried tylenol and motrin with little relief. Denies past or present trauma, injury, or surgery, hx of gout or ETOH usage, fever, chills, and other swollen joints. Positive for redness and swelling around great toe- reports has went away. Reports she has been wearing flip flops more recently. PAST MEDICAL HISTORY Diagnosis Date - Acute cholecystitis - Chronic low back pain - HTN (hypertension) ALLERGIES Mobic [Meloxicam]; Naproxen; Prednisone; Tylenol #3 [Codeine]; Vicodin [Hydrocodone-Acetaminophen] MEDICATIONS Current Outpatient Prescriptions: white petrolatum (AQUAPHOR HEALING) ointment Apply 1 application to affected area twice daily. lisinopril-hydrochlorothiazide (PRINZIDE,ZESTORETIC) 20-12.5 mg per tablet Take 1 tablet by mouth twice daily. mineral oil/hydrophil petrolatum (AQUAPHOR) oint Apply 1 application to affected area twice daily as needed. lidocaine (LIDODERM) 5 % Apply 1 Patch as directed every 24 hours. Remove old patch prior to placing new patch. Location: left shoulder methylPREDNISolone (MEDROL, CIRILO,) 4 mg Dose-Pack As Instructed per package oxyCODONE-acetaminophen (PERCOCET) 5-325 mg tablet Take 1 tablet by mouth every 6 hours as needed. benzonatate (TESSALON PERLE) 100 mg capsule Take 2 capsules by mouth three times daily as needed. albuterol HFA (PROAIR HFA) 90 mcg/actuation inhaler Inhale 2 Puffs as instructed every 4 hours as needed for Wheezing/Shortness of Breath. etodolac (LODINE) 300 mg capsule Take 1 capsule by mouth every 8 hours. omeprazole (PRILOSEC) 20 mg capsule Take 1 capsule by mouth daily before breakfast. 1/2 hr before meal. (Patient not taking: Reported on 05/22/2016) TENS unit and electrodes cmpk 1 Package as needed (daily as needed for pain). fexofenadine (MONTRELL) 180 mg tablet Take 1 tablet by mouth once daily. (Patient not taking: Reported on 05/22/2016) Blood Pressure Cuff - Home Use BLOOD PRESSURE CUFF FOR HOME USE. DX: LABILE BLOOD PRESSURE 401.01 COMPOUNDED PRESCRIPTION Blood pressure machineDX: No current facility-administered medications for this visit. Medications and allergies reviewed by this provider. 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 OBJECTIVE: BP 150/88 (BP Site: Right Arm, BP Position: Sitting, BP Cuff Size: Regular Adult) Pulse 72 Resp 18 Wt 87.1 kg (192 lb) LMP 09/26/2014 (Exact Date) BMI 34.01 kg/m? . Vital signs reviewed by this provider. APPEARANCE Well appearing, alert, in no acute distress, well-hydrated, well nourished. and Overweight EXTREMITIES Extremities normal, No deformities, No skin discoloration, No edema and Normal pulses bilaterally. Right foot: without swelling, redness, drainage, painful movement and loss of ROM. of the calcaneus, heel, midfoot and arch. TTP along plantar aspect , arch, and great toe. ASSESSMENT/PLAN: 1. Foot pain, right - ICD9: 729.5, ICD10: M79.671 - consider gout vs plantar fascitisvs poor shoe support vs unknown - no red flag exam findings - red flag symptoms discussed, verbalizes understanding - continue to use ibuprofen 600 to 800 mg every 6-8 hours for pain, along with rest, ice, compression, and elevation. May use post op shoe if helps with pain. Wear shoes with support. - URIC ACID BLOOD - SED RATE WESTERGREN - C-REACTIVE PROTEIN (CRP) - follow-up pending blood work Stephanie Borges APRN.HYDRAULIC CHAIR ASSEMBLER Prescription instructions reviewed with patient as applicable. Patient advised if symptoms do not improve or if symptoms worsen sooner, to contact their primary care physician. Potential red flag symptoms discussed with the patient. Reviewed appropriate action plan to take if red flag symptoms occur. Patient agreeable to treatment plan. CNOV Observed: 11/05/2017 Status: COMPLETED Source: [place] 1:00 PM [facility] REPOSITORY Office Visit ([facility]) GILMA MILLER ([id number]) 1970 F CHT Date Time Provider Department 11/05/17 1:00 PM STEPHANIE BORGES (JARVIS) MÓNICA During your visit today, we recorded the following information about you: Pulse Respiration Blood pressure Weight 72/minute 18/minute 150/88 87.1 kg Stephanie Borges APRN.CNP 11/05/2017 1:50 PM Signed 11/05/2017 Patient presents with: ER F/U SUBJECTIVE: This is a 47 year old that is here today for Above Complaints. Seen at [facility] [place] on 11/03/2017 for complaints for right foot pain. Pain had started a couple days prior without injury. Right foot x-ray completed and showed no visible abnormality. Was given naproxen po and post op shoe. Today she returns for follow-up. Pain is located on plantar aspect of right foot. Worse around the great toe. Described as a constant ache. Aggravated with putting pressure on it. Some relief with rest. Worse at night when sleeping. Has tried tylenol and motrin with little relief. Denies past or present trauma, injury, or surgery, hx of gout or ETOH usage, fever, chills, and other swollen joints. Positive for redness and swelling around great toe- reports has went away. Reports she has been wearing flip flops more recently. PAST MEDICAL HISTORY Diagnosis Date - Acute cholecystitis - Chronic low back pain - HTN (hypertension) ALLERGIES Mobic [Meloxicam]; Naproxen; Prednisone; Tylenol #3 [Codeine]; Vicodin [Hydrocodone-Acetaminophen] MEDICATIONS Current Outpatient Prescriptions: white petrolatum (AQUAPHOR HEALING) ointment Apply 1 application to affected area twice daily. lisinopril-hydrochlorothiazide (PRINZIDE,ZESTORETIC) 20-12.5 mg per tablet Take 1 tablet by mouth twice daily. mineral oil/hydrophil petrolatum (AQUAPHOR) oint Apply 1 application to affected area twice daily as needed. lidocaine (LIDODERM) 5 % Apply 1 Patch as directed every 24 hours. Remove old patch prior to placing new patch. Location: left shoulder methylPREDNISolone (MEDROL, CIRILO,) 4 mg Dose-Pack As Instructed per package oxyCODONE-acetaminophen (PERCOCET) 5-325 mg tablet Take 1 tablet by mouth every 6 hours as needed. benzonatate (TESSALON PERLE) 100 mg capsule Take 2 capsules by mouth three times daily as needed. albuterol HFA (PROAIR HFA) 90 mcg/actuation inhaler Inhale 2 Puffs as instructed every 4 hours as needed for Wheezing/Shortness of Breath. etodolac (LODINE) 300 mg capsule Take 1 capsule by mouth every 8 hours. omeprazole (PRILOSEC) 20 mg capsule Take 1 capsule by mouth daily before breakfast. 1/2 hr before meal. (Patient not taking: Reported on 05/22/2016) TENS unit and electrodes cmpk 1 Package as needed (daily as needed for pain). fexofenadine (MONTRELL) 180 mg tablet Take 1 tablet by mouth once daily. (Patient not taking: Reported on 05/22/2016) Blood Pressure Cuff - Home Use BLOOD PRESSURE CUFF FOR HOME USE. DX: LABILE BLOOD PRESSURE 401.01 COMPOUNDED PRESCRIPTION Blood pressure machineDX: No current facility-administered medications for this visit. Medications and allergies reviewed by this provider. 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 OBJECTIVE: BP 150/88 (BP Site: Right Arm, BP Position: Sitting, BP Cuff Size: Regular Adult) Pulse 72 Resp 18 Wt 87.1 kg (192 lb) LMP 09/26/2014 (Exact Date) BMI 34.01 kg/m? . Vital signs reviewed by this provider. APPEARANCE Well appearing, alert, in no acute distress, well- hydrated, well nourished. and Overweight EXTREMITIES Extremities normal, No deformities, No skin discoloration, No edema and Normal pulses bilaterally. Right foot: without swelling, redness, drainage, painful movement and loss of ROM. of the calcaneus, heel, midfoot and arch. TTP along plantar aspect , arch, and great toe. ASSESSMENT/PLAN: 1. Foot pain, right - ICD9: 729.5, ICD10: M79.671 - consider gout vs plantar fascitisvs poor shoe support vs unknown - no red flag exam findings - red flag symptoms discussed, verbalizes understanding - continue to use ibuprofen 600 to 800 mg every 6-8 hours for pain, along with rest, ice, compression, and elevation. May use post op shoe if helps with pain. Wear shoes with support. - URIC ACID BLOOD - SED RATE WESTERGREN - C-REACTIVE PROTEIN (CRP) - follow-up pending blood work Stephanie Podlogar, COPPER TAPPER.HYDRAULIC CHAIR ASSEMBLER Prescription instructions reviewed with patient as applicable. Patient advised if symptoms do not improve or if symptoms worsen sooner, to contact their primary care physician. Potential red flag symptoms discussed with the patient. Reviewed appropriate action plan to take if red flag symptoms occur. Patient agreeable to treatment plan. Stephanie Podlogar, COPPER TAPPER.JARVIS 11/05/2017 1:15 PM Signed Use ibuprofen 600 to 800 mg every 6- 8 hours as needed for pain Rest, ice, compression, and elevation Referring Provider: SELF [200] Allergies As of Date: 11/05/2017 Noted Allergy Reaction MOBIC (MELOXICAM) 10/24/2009 4 - Hives NAPROXEN 10/24/2009 8 - GI Upset PREDNISONE 11/07/2009 4 - Hives 12 - Shortness of Breath TYLENOL #3 (CODEINE) 10/24/2009 4 - Hives VICODIN (HYDROCODONE-ACETAMINOPHE*09/27/2014 8 - GI Upset Comments: Nausea Date Reviewed: 11/05/2017 Reviewed by: Lucia Baez LPN - Fully Assessed Reason for Visit: ER F/U [41] Primary Visit Diagnosis:Foot pain, right [M79.671] Order(s):URIC ACID BLOOD [SQURIC] Order #: [id number] FUTURE SED RATE WESTERGREN [SQWSR] Order #: [id number] FUTURE C-REACTIVE PROTEIN (CRP) [SQCRP] Order #: [id number] FUTURE COMPOUNDED PRESCRIPTIONBlood pressure cuff ICD Code: K51Pvxu: 1 DeviceRfl: 0 Prescriptions as of 11/05/2017 Sig: WHITE PETROLATUM 41 % TOPICAL* Apply 1 application to affect* LISINOPRIL 20 MG-HYDROCHLOROT* Take 1 tablet by mouth twice * MINERAL OIL-HYDROPHIL PETROLA* Apply 1 application to affect* COMPOUNDED PRESCRIPTION Blood pressure cuff ICD Code* COMPOUNDED PRESCRIPTION BLOOD PRESSURE CUFF FOR HOME * COMPOUNDED PRESCRIPTION Blood pressure machine DX: Problem List As Of Date 11/05/2017 Noted Resolved Essential Hypertension, Benign [I10] INVALID FOR* More... Chronic low back pain [M54.5, G89.29] INVALID FOR* More... Heavy menses [N92.0] INVALID FOR*10/20/2014 Abnormal uterine bleeding [N93.9] INVALID FOR*10/20/2014 Irregular bleeding [N92.6] INVALID FOR*10/20/2014 Mixed incontinence [N39.46] INVALID FOR* Other instructions from your clinician: Use ibuprofen 600 to 800 mg every 6- 8 hours as needed for pain Rest, ice, compression, and elevation Prescriptions ordered this encounter Disp Refills Start End COMPOUNDED PRESCRIPTION 1 De* 0 11/05/2017 Class: Print RX Sig: Blood pressure cuff ICD Code: I10 Medications Discontinued During This Encounter methylPREDNISolone (MEDROL, CIRILO,) 4 * 1 Pa* 0 08/23/2017 11/05/2017 Sig: As Instructed per package Disc: Discontinued by Patient oxyCODONE-acetaminophen (PERCOCET) 5* 18 t* 0 09/17/2016 11/05/2017 Class: Print RX Route: ORAL Sig: Take 1 tablet by mouth every 6 hours as needed. Disc: Discontinued by Patient lidocaine (LIDODERM) 5 % 15 P* 0 09/05/2017 11/05/2017 Route: TRANSDERMAL Sig: Apply 1 Patch as directed every 24 hours. Remove old patch prior to placing new patch. Location: left shoulder Disc: Discontinued by Patient benzonatate (TESSALON PERLE) 100 mg * 60 c* 0 05/22/2016 11/05/2017 Route: ORAL Sig: Take 2 capsules by mouth three times daily as needed. Disc: Discontinued by Patient etodolac (LODINE) 300 mg capsule 60 c* 0 04/18/2016 11/05/2017 Route: ORAL Sig: Take 1 capsule by mouth every 8 hours. Disc: Course of therapy completed omeprazole (PRILOSEC) 20 mg capsule 30 c* 0 04/18/2016 11/05/2017 Route: ORAL Sig: Take 1 capsule by mouth daily before breakfast. 1/2 hr before meal. Patient not taking: Reported on 05/22/2016 Disc: Discontinued by Patient fexofenadine (MONTRELL) 180 mg tablet 5 ta* 0 07/11/2015 11/05/2017 Route: ORAL Sig: Take 1 tablet by mouth once daily. Patient not taking: Reported on 05/22/2016 Disc: Course of therapy completed TENS unit and electrodes cmpk 1 De* 0 01/13/2016 11/05/2017 Class: Print RX Route: Miscell. (Med.Supl.;Non-Drugs) Si Package as needed (daily as needed for pain). Disc: Course of therapy completed albuterol HFA (PROAIR HFA) 90 mcg/ac* 1 In* 0 05/22/2016 11/05/2017 Route: INHALATION Sig: Inhale 2 Puffs as instructed every 4 hours as needed for Wheezing/Shortness of Breath. Disc: Course of therapy completed LOS history recorded Follow-up and Disposition History Recorded Encounter Status:Closed by PODLOGSTEPHANIE PHAN CNP on 11/05/17 XR FOOT MINIMUM 3 Observed: 11/03/2017 Status: F Source: [facility] VIEWS RIGHT 10:52 AM [facility]OUNDATION REPOSITORY ORIGINAL XR FOOT MINIMUM 3 VIEWS RIGHT CLINICAL STATEMENT: Pain and swelling of the plantar foot. . COMPARISON: None FINDINGS: No acute fracture or dislocation is identified. The joint spaces are maintained. There is mild posterior calcaneal osteophyte formation. There is no radiopaque foreign body. IMPRESSION: No no visible acute abnormality. Interpreted By: Bryant Oropeza MD Preliminary Report By: Bryant Oropeza MD Electronically Signed By: Bryant Oropeza MD Dictated Date: 11/03/2017 11:09:40 AM Prelim Date: 11/03/2017 11:09:40 AM Sign Date: 11/03/2017 11:11:45 AM CNCO Observed: 09/20/2017 Status: COMPLETED Source: [place] 2:51 PM [facility] REPOSITORY HNO ID: [id number] Author: Mammography Coordinator Service: (none) Author Type: Physician Type: Letter Filed: 09/23/2017 11:33 PM Note Text: September 20, 2017 PID: [id number] Gilma Miller [address] [address] Dear Ms. Miller, We are pleased to inform you that the results of your recent breast imaging exam on 09/20/2017 are normal. Early detection of cancer is very important. We also understand recommendations regarding breast cancer screening are controversial. Please discuss with your primary care provider which strategy is best for you and whether a mammogram is right for you. Your imaging studies and report will be kept on file at [facility] as part of your permanent medical record and are available for your continuing care. Thank you for allowing us to help in meeting your health care needs. Sincerely, Dr. Nelson Interpreting Radiologist [facility] (Normal over 40) [facility] SCREENING Observed: 09/20/2017 Status: F Source: [place] 1:54 PM [facility] REPOSITORY * * *Final Report* * * DATE OF EXAM: Sep 20 2017 1:54PM [facility] 0581 - [facility] SCREENING / PROCEDURE REASON: Encounter for screening mammogram for malignant neoplasm of breast * * * * Physician Interpretation * * * * RESULT: #[id number] - [facility] SCREENING BILATERAL DIGITAL SCREENING MAMMOGRAM WITH CAD: 09/20/2017 HISTORY: Screening Mammogram - patient reports NO breast symptoms /priors available for comparison. RESULT: TECHNIQUE: The study was acquired using full field digital technology and interpreted from soft copy. Current study was also evaluated with a Computer Aided Detection (CAD). Comparison is made to exams dated: 01/02/2016 mammogram, 09/22/2014 mammogram - [facility], and 01/26/2010 mammogram. There are scattered fibroglandular elements in both breasts. No significant masses, calcifications, or other findings are seen in either breast. There has been no significant interval change. IMPRESSION: NEGATIVE There is no mammographic evidence of malignancy.A 1 year screening mammogram is recommended. Maria Ines Nelson M.D. pt/ximena:09/20/2017 14:51:50 Clinical Care Leader: Janine Vidal RT(Jf)(Horacio), [facility] letter sent: Normal over 40 Mammogram BI-RADS: 1 Negative System Sales Consultant: Ximena Transcribe Date/Time: Sep 20 2017 1:34P Dictated by: MARIA INES NELSON MD This examination was interpreted and the report reviewed and electronically signed by: MARIA INES NELSON MD on Sep 20 2017 2:51PM EST [id number] PROGRESS Observed: 09/20/2017 Status: COMPLETED Source: [place] 1:26 PM [facility]IN [place] REPOSITORY HNO ID: [id number] Author: Christi Mishra Service: (none) Author Type: Nurse Practitioner Type: Progress Notes Filed: 09/20/2017 1:43 PM Note Text: Subjective HPI HPI Gilma Miller is a 47 year old female who presents today for CC of bilateral ears clogged. This started this morning. Has tried flushing ears, making symptoms worse. Risk factors, hx of ear wax issues. .Patient presents with: Earwax PAST MEDICAL HISTORY Diagnosis Date - Acute cholecystitis - Chronic low back pain - HTN (hypertension) PAST SURGICAL HISTORY Procedure Laterality Date - LAPAROSCOPIC CHOLEYCYSTECTOMY 05/23/2015 - REMOVAL OF TONSILS,<12 Y/O Tonsillectomy - TUBAL LIGATION HX 1993 - VAGINAL HYSTERECTOMY 2014 ALLERGIES Mobic [Meloxicam]; Naproxen; Prednisone; Tylenol #3 [Codeine]; Vicodin [Hydrocodone-Acetaminophen] MEDICATIONS white petrolatum (AQUAPHOR HEALING) ointment Apply 1 application to affected area twice daily. lisinopril-hydrochlorothiazide (PRINZIDE,ZESTORETIC) 20-12.5 mg per tablet Take 1 tablet by mouth twice daily. mineral oil/hydrophil petrolatum (AQUAPHOR) oint Apply 1 application to affected area twice daily as needed. lidocaine (LIDODERM) 5 % Apply 1 Patch as directed every 24 hours. Remove old patch prior to placing new patch. Location: left shoulder methylPREDNISolone (MEDROL, CIRILO,) 4 mg Dose-Pack As Instructed per package oxyCODONE-acetaminophen (PERCOCET) 5-325 mg tablet Take 1 tablet by mouth every 6 hours as needed. benzonatate (TESSALON PERLE) 100 mg capsule Take 2 capsules by mouth three times daily as needed. albuterol HFA (PROAIR HFA) 90 mcg/actuation inhaler Inhale 2 Puffs as instructed every 4 hours as needed for Wheezing/Shortness of Breath. etodolac (LODINE) 300 mg capsule Take 1 capsule by mouth every 8 hours. omeprazole (PRILOSEC) 20 mg capsule Take 1 capsule by mouth daily before breakfast. 1/2 hr before meal. TENS unit and electrodes cmpk 1 Package as needed (daily as needed for pain). fexofenadine (MONTRELL) 180 mg tablet Take 1 tablet by mouth once daily. Blood Pressure Cuff - Home Use BLOOD PRESSURE CUFF FOR HOME USE. DX: LABILE BLOOD PRESSURE 401.01 COMPOUNDED PRESCRIPTION Blood pressure machineDX: FAMILY HISTORY Problem Relation Age of Onset - Hypertension Mother - Hypertension Father - Coronary Artery Disease Mother - Coronary Artery Disease Father - Cancer Mother Breast - Cancer Father Lung Social History Substance Use Topics - Smoking status: Never Smoker - Smokeless tobacco: Never Used - Alcohol use No Review of Systems Constitutional: Negative for fever. HENT: Positive for hearing loss. Negative for congestion, ear pain, sinus pain and sore throat. Respiratory: Negative for cough, shortness of breath and wheezing. Cardiovascular: Negative for chest pain. Skin: Negative for itching and rash. Objective Blood pressure 140/100, pulse 74, temperature 36.7 ?C (98 ?F), temperature source Left Tympanic, resp. rate 16, weight 83 kg (183 lb), last menstrual period 09/26/2014. Physical Exam Constitutional: She is well-developed, well-nourished, and in no distress. Non-toxic appearance. She does not have a sickly appearance. No distress. HENT: Right Ear: External ear normal. Left Ear: External ear normal. Nose: Nose normal. Mouth/Throat: Oropharynx is clear and moist and mucous membranes are normal. Bilateral canals impacted with wet cerumen -after lavage by nurse, bilateral ear canals clear and TMS normal. Lymphadenopathy: She has no cervical adenopathy. Right cervical: No superficial cervical adenopathy present. Left cervical: No superficial cervical adenopathy present. Skin: She is not diaphoretic. ASSESSMENT/PLAN: 1. Bilateral impacted cerumen - ICD9: 380.4, ICD10: H61.23 -discussed proper ear hygiene -f/u with pcp if s/s persist/worsen Prescription instructions reviewed with patient as applicable. Patient advised if symptoms do not improve or if symptoms worsen sooner, to contact the office for further evaluation by their primary care physician. Potential red flag symptoms discussed with the patient. Reviewed appropriate action plan to take if red flag symptoms occur. Patient agreeable to treatment plan. Christi Mishra APRN.JARVIS CNOV Observed: 09/20/2017 Status: COMPLETED Source: [place] 12:45 PM [facility] REPOSITORY Office Visit (WSTR) GILMA MILLER ([id number]) 1970 F C[facility] Date Time Provider Department 09/20/17 12:45 PM CHRISTI MISHRA (JARVIS) [facility] During your visit today, we recorded the following information about you: Temperature Pulse Respiration Blood pressure 98 degrees 74/minute 16/minute 140/100 Weight 83 kg Marisela Duvall Ma 09/20/2017 1:03 PM Signed Ear lavage performed on both ears with warm water/h202. Large amount of cerumen flushed from ear. TM is visible and intact post procedure. Patient tolerated procedure well and had no complaints during or after the procedure. Marisela Mishra APRN.JARVIS 09/20/2017 1:43 PM Signed Subjective HPI HPI Gilma Miller is a 47 year old female who presents today for CC of bilateral ears clogged. This started this morning. Has tried flushing ears, making symptoms worse. Risk factors, hx of ear wax issues. .Patient presents with: Earwax PAST MEDICAL HISTORY Diagnosis Date - Acute cholecystitis - Chronic low back pain - HTN (hypertension) PAST SURGICAL HISTORY Procedure Laterality Date - LAPAROSCOPIC CHOLEYCYSTECTOMY 05/23/2015 - REMOVAL OF TONSILS,<12 Y/O Tonsillectomy - TUBAL LIGATION HX 1993 - VAGINAL HYSTERECTOMY 2014 ALLERGIES Mobic [Meloxicam]; Naproxen; Prednisone; Tylenol #3 [Codeine]; Vicodin [Hydrocodone-Acetaminophen] MEDICATIONS white petrolatum (AQUAPHOR HEALING) ointment Apply 1 application to affected area twice daily. lisinopril-hydrochlorothiazide (PRINZIDE,ZESTORETIC) 20-12.5 mg per tablet Take 1 tablet by mouth twice daily. mineral oil/hydrophil petrolatum (AQUAPHOR) oint Apply 1 application to affected area twice daily as needed. lidocaine (LIDODERM) 5 % Apply 1 Patch as directed every 24 hours. Remove old patch prior to placing new patch. Location: left shoulder methylPREDNISolone (MEDROL, CIRILO,) 4 mg Dose-Pack As Instructed per package oxyCODONE-acetaminophen (PERCOCET) 5-325 mg tablet Take 1 tablet by mouth every 6 hours as needed. benzonatate (TESSALON PERLE) 100 mg capsule Take 2 capsules by mouth three times daily as needed. albuterol HFA (PROAIR HFA) 90 mcg/actuation inhaler Inhale 2 Puffs as instructed every 4 hours as needed for Wheezing/Shortness of Breath. etodolac (LODINE) 300 mg capsule Take 1 capsule by mouth every 8 hours. omeprazole (PRILOSEC) 20 mg capsule Take 1 capsule by mouth daily before breakfast. 1/2 hr before meal. TENS unit and electrodes cmpk 1 Package as needed (daily as needed for pain). fexofenadine (MONTRELL) 180 mg tablet Take 1 tablet by mouth once daily. Blood Pressure Cuff - Home Use BLOOD PRESSURE CUFF FOR HOME USE. DX: LABILE BLOOD PRESSURE 401.01 COMPOUNDED PRESCRIPTION Blood pressure machineDX: FAMILY HISTORY Problem Relation Age of Onset - Hypertension Mother - Hypertension Father - Coronary Artery Disease Mother - Coronary Artery Disease Father - Cancer Mother Breast - Cancer Father Lung Social History Substance Use Topics - Smoking status: Never Smoker - Smokeless tobacco: Never Used - Alcohol use No Review of Systems Constitutional: Negative for fever. HENT: Positive for hearing loss. Negative for congestion, ear pain, sinus pain and sore throat. Respiratory: Negative for cough, shortness of breath and wheezing. Cardiovascular: Negative for chest pain. Skin: Negative for itching and rash. Objective Blood pressure 140/100, pulse 74, temperature 36.7 ?C (98 ?F), temperature source Left Tympanic, resp. rate 16, weight 83 kg (183 lb), last menstrual period 09/26/2014. Physical Exam Constitutional: She is well-developed, well-nourished, and in no distress. Non-toxic appearance. She does not have a sickly appearance. No distress. HENT: Right Ear: External ear normal. Left Ear: External ear normal. Nose: Nose normal. Mouth/Throat: Oropharynx is clear and moist and mucous membranes are normal. Bilateral canals impacted with wet cerumen -after lavage by nurse, bilateral ear canals clear and TMS normal. Lymphadenopathy: She has no cervical adenopathy. Right cervical: No superficial cervical adenopathy present. Left cervical: No superficial cervical adenopathy present. Skin: She is not diaphoretic. ASSESSMENT/PLAN: 1. Bilateral impacted cerumen - ICD9: 380.4, ICD10: H61.23 -discussed proper ear hygiene -f/u with pcp if s/s persist/worsen Prescription instructions reviewed with patient as applicable. Patient advised if symptoms do not improve or if symptoms worsen sooner, to contact the office for further evaluation by their primary care physician. Potential red flag symptoms discussed with the patient. Reviewed appropriate action plan to take if red flag symptoms occur. Patient agreeable to treatment plan. Christi Mishra APRN.HYDRAULIC CHAIR ASSEMBLER Referring Provider: SELF [[id number]] Allergies As of Date: 09/20/2017 Noted Allergy Reaction MOBIC (MELOXICAM) 10/24/2009 4 - Hives NAPROXEN 10/24/2009 8 - GI Upset PREDNISONE 11/07/2009 4 - Hives 12 - Shortness of Breath TYLENOL #3 (CODEINE) 10/24/2009 4 - Hives VICODIN (HYDROCODONE-ACETAMINOPHE*09/27/2014 8 - GI Upset Comments: Nausea Date Reviewed: 09/20/2017 Reviewed by: Christi (Jarvis) - Fully Assessed Reason for Visit: Earwax [1178] Primary Visit Diagnosis:Bilateral impacted cerumen [H61.23] Prescriptions as of 09/20/2017 Sig: WHITE PETROLATUM 41 % TOPICAL* Apply 1 application to affect* LISINOPRIL 20 MG-HYDROCHLOROT* Take 1 tablet by mouth twice * MINERAL OIL-HYDROPHIL PETROLA* Apply 1 application to affect* LIDOCAINE 5 % TOPICAL PATCH Apply 1 Patch as directed sary* METHYLPREDNISOLONE 4 MG TABLE* As Instructed per package OXYCODONE-ACETAMINOPHEN 5 MG-* Take 1 tablet by mouth every * BENZONATATE 100 MG CAPSULE Take 2 capsules by mouth thre* ALBUTEROL SULFATE HFA 90 MCG/* Inhale 2 Puffs as instructed * ETODOLAC 300 MG CAPSULE Take 1 capsule by mouth every* OMEPRAZOLE 20 MG CAPSULE,ANGELINA* Take 1 capsule by mouth daily* Patient not taking: Reported on 05/22/2016 TENS UNIT AND ELECTRODES COMB* 1 Package as needed (daily as* FEXOFENADINE 180 MG TABLET Take 1 tablet by mouth once d* Patient not taking: Reported on 05/22/2016 COMPOUNDED PRESCRIPTION BLOOD PRESSURE CUFF FOR HOME * COMPOUNDED PRESCRIPTION Blood pressure machine DX: Medication notes this encounter COMPOUNDED PRESCRIPTION >> Marisela P Jadiel Ma 09/20/2017 12:47 PM >> JADIEL REZA MARISELA Coreas SatSep 20, 2017 12:47 PM done COMPOUNDED PRESCRIPTION >> Mariselabravo Duvall Ma 09/20/2017 12:47 PM >> JADIEL RASHAAD REZABRAVO Coreas SatSep 20, 2017 12:47 PM done Problem List As Of Date 09/20/2017 Noted Resolved Essential Hypertension, Benign [I10] INVALID FOR* More... Chronic low back pain [M54.5, G89.29] INVALID FOR* More... Heavy menses [N92.0] INVALID FOR*10/20/2014 Abnormal uterine bleeding [N93.9] INVALID FOR*10/20/2014 Irregular bleeding [N92.6] INVALID FOR*10/20/2014 Mixed incontinence [N39.46] INVALID FOR* Visit Notes: >> Mariselabravo Duvall Ma SatSep 20, 2017 1:02 PM Status: Signed Ear lavage performed on both ears with warm water/h202. Large amount of cerumen flushed from ear. TM is visible and intact post procedure. Patient tolerated procedure well and had no complaints during or after the procedure. Marisela Serranoisabella Reza Encounter Status:Closed by CHRISTI MISHRA CNP on 09/20/17 PROGRESS Observed: 09/03/2017 Status: COMPLETED Source: [place] 1:09 PM [facility] REPOSITORY HNO ID: [id number] Author: James Jordan Service: (none) Author Type: Nurse Practitioner Type: Progress Notes Filed: 09/03/2017 1:56 PM Note Text: CC: Patient presents with: Pain (Shoulder Pain): left x1 month HPI Gilma Miller is a 47 year old female who presents with complaints of left shoulder pain x1 month. Patient was previously evaluated in office ~ 1.5 weeks ago. No images were completed at that time. Patient was prescribed Medrol dose pack, which she was unable to tolerate. She has since contacted her PCP where Ultram was prescribed, however medication requires prior authorization. Patient is left hand dominant. Patient notes that this pain has been present for 1 month. Patient does recall falling onto her left side after getting out of the pool a few weeks ago, she reports the pain was present prior to the fall but seems worse since fall. Patient notes that this pain started insidiously with no inciting event. She notes that pain is localized to the left posterior shoulder pain, left lateral shoulder pain and left anterior shoulder pain. She notes the pain to be constant, sharp, dull and achy. She notes that this problem exhibits aggravating factors of Overhead activities, Pushing or pulling, Reaching backwards and Sleeping on the shoulder. She notes that this problem exhibits alleviating factors of Heat therapy, NSAIDs and massage . She notes significant interruption of sleep from the symptoms. She notes no neck pain, no radiation of shoulder pain, and no numbness or tingling noted of the upper extremity. Patient does not note any associated mechanical symptoms. Treatments so far have included medication (Aleve, Flexeril, Ibuprofen and Tylenol). Patient reports she is unable to drive or reach her bra in the back since onset of pain REVIEW OF SYSTEMS: as above otherwise non-contributory Reviewed relevant PMHx, PSHx, Social Hx, current medications and allergies. PHYSICAL EXAM: General Appearance: Well appearing, alert, in no acute distress, well-hydrated, well nourished.. Skin: Skin color, texture, turgor normal, no suspicious rashes or lesions. Neck: No obvious deformities, crepitus, erythema or edema. Non-tender to palpation Musculoskeletal: normal cervical posture, shoulder alignment, and no joint deformities or swelling noted mild tenderness over the AC joint and left trapezius Painful abduction, limited to ~90 degrees Painful shoulder flexion and extension and internal rotation Apley scratch test: positive Drop Arm: negative Shoulder strength: Empty can test: positive Neuro: Upper extremity reflexes: +2 to bilateral U/L extremities. Upper Extremity Strength: 4/5 left; 5/5 right ASSESSMENT/PLAN: 1. Acute pain of left shoulder - ICD9: 719.41, ICD10: M25.512 - S/p fall, will obtain plain imaging, uncertain if patient was fully participating in exam related to strength assessment, although somewhat concerned for rotator cuff tear vs overuse injury - Encourage rest, ice, heat and NSAIDs - TRAMADOL 50 MG TABLET - XR SHOULDER LIMITED 2V AP/TRUE AP LT - CONSULT TO ORTHOPAEDICS OARRS website checked and validated. All prescriptions have been APPROPRIATELY filled. No suspicious activity was identified.- 09/03/2017 by JamesZURI Blackman APRN.CNP CNOV Observed: 09/03/2017 Status: COMPLETED Source: [place] 1:00 PM [facility] REPOSITORY Office Visit (INTMWS) GILMA MILLER ([id number]) 1970 F [facility] Date Time Provider Department 09/03/17 1:00 PM JAMES JORDAN (JARVIS) INTMWS During your visit today, we recorded the following information about you: Pulse Respiration Blood pressure Weight 80/minute 20/minute 136/82 82.1 kg James Jordan APRN.CNP 09/03/2017 1:56 PM Signed CC: Patient presents with: Pain (Shoulder Pain): left x1 month HPI Gilma Fernandez Radha is a 47 year old female who presents with complaints of left shoulder pain x1 month. Patient was previously evaluated in office ~ 1.5 weeks ago. No images were completed at that time. Patient was prescribed Medrol dose pack, which she was unable to tolerate. She has since contacted her PCP where Ultram was prescribed, however medication requires prior authorization. Patient is left hand dominant. Patient notes that this pain has been present for 1 month. Patient does recall falling onto her left side after getting out of the pool a few weeks ago, she reports the pain was present prior to the fall but seems worse since fall. Patient notes that this pain started insidiously with no inciting event. She notes that pain is localized to the left posterior shoulder pain, left lateral shoulder pain and left anterior shoulder pain. She notes the pain to be constant, sharp, dull and achy. She notes that this problem exhibits aggravating factors of Overhead activities, Pushing or pulling, Reaching backwards and Sleeping on the shoulder. She notes that this problem exhibits alleviating factors of Heat therapy, NSAIDs and massage . She notes significant interruption of sleep from the symptoms. She notes no neck pain, no radiation of shoulder pain, and no numbness or tingling noted of the upper extremity. Patient does not note any associated mechanical symptoms. Treatments so far have included medication (Aleve, Flexeril, Ibuprofen and Tylenol). Patient reports she is unable to drive or reach her bra in the back since onset of pain REVIEW OF SYSTEMS: as above otherwise non-contributory Reviewed relevant PMHx, PSHx, Social Hx, current medications and allergies. PHYSICAL EXAM: General Appearance: Well appearing, alert, in no acute distress, well-hydrated, well nourished.. Skin: Skin color, texture, turgor normal, no suspicious rashes or lesions. Neck: No obvious deformities, crepitus, erythema or edema. Non-tender to palpation Musculoskeletal: normal cervical posture, shoulder alignment, and no joint deformities or swelling noted mild tenderness over the AC joint and left trapezius Painful abduction, limited to ~90 degrees Painful shoulder flexion and extension and internal rotation Apley scratch test: positive Drop Arm: negative Shoulder strength: Empty can test: positive Neuro: Upper extremity reflexes: +2 to bilateral U/L extremities. Upper Extremity Strength: 4/5 left; 5/5 right ASSESSMENT/PLAN: 1. Acute pain of left shoulder - ICD9: 719.41, ICD10: M25.512 - S/p fall, will obtain plain imaging, uncertain if patient was fully participating in exam related to strength assessment, although somewhat concerned for rotator cuff tear vs overuse injury - Encourage rest, ice, heat and NSAIDs - TRAMADOL 50 MG TABLET - XR SHOULDER LIMITED 2V AP/TRUE AP LT - CONSULT TO ORTHOPAEDICS [facility] website checked and validated. All prescriptions have been APPROPRIATELY filled. No suspicious activity was identified.- 09/03/2017 by James Jordan APRN.HYDRAULIC CHAIR ASSEMBLER James Jordan APRN.HYDRAULIC CHAIR ASSEMBLER Referring Provider: SELF [200] Allergies As of Date: 09/03/2017 Noted Allergy Reaction MOBIC (MELOXICAM) 10/24/2009 4 - Hives NAPROXEN 10/24/2009 8 - GI Upset PREDNISONE 11/07/2009 4 - Hives 12 - Shortness of Breath TYLENOL #3 (CODEINE) 10/24/2009 4 - Hives VICODIN (HYDROCODONE-ACETAMINOPHE*09/27/2014 8 - GI Upset Comments: Nausea Date Reviewed: 08/23/2017 Reviewed by: Milton Mchugh Ma - Fully Assessed Reason for Visit: Pain (Shoulder Pain) [1343] Cmt: left x1 month Primary Visit Diagnosis:Acute pain of left shoulder [M25.512] Order(s):traMADol (ULTRAM) 50 mg tabletTake 1 tablet by mouth twice daily as needed for up to 5 days.Disp: 10 tabletRfl: 0 XR SHOULDER LIMITED 2V AP/TRUE AP LT [[id number]] Order #: [id number] FUTURE CONSULT TO ORTHOPAEDICS [9057] Order #: [id number]: 1 Prescriptions as of 09/03/2017 Sig: WHITE PETROLATUM 41 % TOPICAL* Apply 1 application to affect* LISINOPRIL 20 MG-HYDROCHLOROT* Take 1 tablet by mouth twice * MINERAL OIL-HYDROPHIL PETROLA* Apply 1 application to affect* ALBUTEROL SULFATE HFA 90 MCG/* Inhale 2 Puffs as instructed * TRAMADOL 50 MG TABLET Take 1 tablet by mouth twice * METHYLPREDNISOLONE 4 MG TABLE* As Instructed per package X WHITE PETROLATUM 41 % TOPICAL* Apply 1 application to affect* OXYCODONE-ACETAMINOPHEN 5 MG-* Take 1 tablet by mouth every * BENZONATATE 100 MG CAPSULE Take 2 capsules by mouth thre* ETODOLAC 300 MG CAPSULE Take 1 capsule by mouth every* OMEPRAZOLE 20 MG CAPSULE,ANGELINA* Take 1 capsule by mouth daily* Patient not taking: Reported on 05/22/2016 TENS UNIT AND ELECTRODES COMB* 1 Package as needed (daily as* FEXOFENADINE 180 MG TABLET Take 1 tablet by mouth once d* Patient not taking: Reported on 05/22/2016 COMPOUNDED PRESCRIPTION BLOOD PRESSURE CUFF FOR HOME * COMPOUNDED PRESCRIPTION Blood pressure machine DX: Problem List As Of Date 09/03/2017 Noted Resolved Essential Hypertension, Benign [I10] INVALID FOR* More... Chronic low back pain [M54.5, G89.29] INVALID FOR* More... Heavy menses [N92.0] INVALID FOR*10/20/2014 Abnormal uterine bleeding [N93.9] INVALID FOR*10/20/2014 Irregular bleeding [N92.6] INVALID FOR*10/20/2014 Mixed incontinence [N39.46] INVALID FOR* Prescriptions ordered this encounter Disp Refills Start End TRAMADOL 50 MG TABLET 10 t* 0 09/03/2017 09/08/2017 Class: Print RX Route: ORAL Sig: Take 1 tablet by mouth twice daily as needed for up to 5 days. Medications Discontinued During This Encounter traMADol (ULTRAM) 50 mg tablet 60 t* 0 08/30/2017 09/03/2017 Class: Call Rx Route: ORAL Sig: Take 1 tablet by mouth twice daily as needed for up to 5 days. Disc: Reason for discontinue is not on file. Encounter Status:Closed by JAMES JORDAN CNP on 09/03/17 PROGRESS Observed: 08/23/2017 Status: COMPLETED Source: [place] 9:52 AM [facility] [place] REPOSITORY HNO ID: [id number] Author: Aliyah Hinojosa) Aruna Service: (none) Author Type: Physician Type: Progress Notes Filed: 08/23/2017 10:14 AM Note Text: Chief Complaint Patient presents with: left arm pain HPI Gilma Miller is a 47 year old female who presents here today for Evaluation of left arm pain. Symptoms started about 2 weeks ago without obvious injury or trauma. Pain located over left upper arm, described as constant soreness, 8/10, without radiation. Exacerbated with abduction and internal rotation, turning steering wheel, lifting 2 year old grandson. Treating with aleve and ibuprofen, using ice/heat which has not helped symptoms. Denies numbness, tingling, bruising, erythema, swelling, history of prior surgery or injury to left arm. Past medical history, appointments, medications, allergies reviewed. Previous Medical History PAST MEDICAL HISTORY Diagnosis Date - Acute cholecystitis - Chronic low back pain - HTN (hypertension) Previous Surgical History PAST SURGICAL HISTORY Procedure Laterality Date - LAPAROSCOPIC CHOLEYCYSTECTOMY 05/23/2015 - REMOVAL OF TONSILS,<12 Y/O Tonsillectomy - TUBAL LIGATION HX 1993 - VAGINAL HYSTERECTOMY 2014 Family History FAMILY HISTORY Problem Relation Age of Onset - Hypertension Mother - Hypertension Father - Coronary Artery Disease Mother - Coronary Artery Disease Father - Cancer Mother Breast - Cancer Father Lung Patient Allergies ALLERGIES Allergen Reactions - Mobic [Meloxicam] Hives - Naproxen GI Upset - Prednisone Hives, Shortness of Breath - Tylenol #3 [Codeine] Hives - Vicodin [Hydrocodon* GI Upset Nausea Current Medications Current Outpatient Prescriptions on File Prior to Visit: white petrolatum (AQUAPHOR HEALING) ointment Apply 1 application to affected area twice daily. oxyCODONE-acetaminophen (PERCOCET) 5-325 mg tablet Take 1 tablet by mouth every 6 hours as needed. mineral oil/hydrophil petrolatum (AQUAPHOR) oint Apply 1 application to affected area twice daily as needed. lisinopril-hydrochlorothiazide (PRINZIDE,ZESTORETIC) 20-12.5 mg per tablet Take 1 tablet by mouth twice daily. benzonatate (TESSALON PERLE) 100 mg capsule Take 2 capsules by mouth three times daily as needed. albuterol HFA (PROAIR HFA) 90 mcg/actuation inhaler Inhale 2 Puffs as instructed every 4 hours as needed for Wheezing/Shortness of Breath. etodolac (LODINE) 300 mg capsule Take 1 capsule by mouth every 8 hours. (Patient not taking: Reported on 05/22/2016) omeprazole (PRILOSEC) 20 mg capsule Take 1 capsule by mouth daily before breakfast. 1/2 hr before meal. (Patient not taking: Reported on 05/22/2016) TENS unit and electrodes cmpk 1 Package as needed (daily as needed for pain). fexofenadine (MONTRELL) 180 mg tablet Take 1 tablet by mouth once daily. (Patient not taking: Reported on 05/22/2016) Blood Pressure Cuff - Home Use BLOOD PRESSURE CUFF FOR HOME USE. DX: LABILE BLOOD PRESSURE 401.01 COMPOUNDED PRESCRIPTION Blood pressure machineDX: No current facility-administered medications on file prior to visit. 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 General Appearance: Well appearing, alert, in no acute distress, well-hydrated, well nourished.. Skin: Skin color, texture, turgor normal, no suspicious rashes or lesions. Musculoskeletal: TTP over deltoid and bicep, normal ROM, 5/5 strength, no bony TTP. Shoulder: Location: Left. Redness: No. Warmth: No. Tenderness to palpation: No. Swelling: No. Range of motion: WNL. Empty can test: negative. Health Maintenance List LIPID SCREEN due on 2014 DIABETES SCREEN due on 2014 MAMMOGRAM due on 01/01/2017 INFLUENZA(Season Ended) due on 12/07/2017 DTAP,TDAP,TD(2 - Td) due on 06/16/2019 PAP EVERY 5 YEARS due on 09/18/2019 HPV EVERY 5 YEARS due on 09/18/2019 ASSESSMENT/PLAN: 1. Left upper arm pain - ICD9: 729.5, ICD10: M79.622 (primary diagnosis) Suspect muscle strain or overuse injury. Will treat with steroid taper and have patient continue ibuprofen/aleve for pain OTC. Ice BID and rest. - METHYLPREDNISOLONE 4 MG TABLETS IN A DOSE PACK 2. Essential hypertension, benign - ICD9: 401.1, ICD10: I10 - poor control - Continue current medication(s) - Encouraged dietary sodium restriction/DASH diet - Recommended regular aerobic exercise. - Follow up in 1 month for BP recheck. - Reviewed risks of HTN and principles of treatment - Goal of BP <140/90 - LISINOPRIL 20 MG-HYDROCHLOROTHIAZIDE 12.5 MG TABLET Aliyah Valdovinos MD CNOV Observed: 08/23/2017 Status: COMPLETED Source: [place] 9:40 AM [facility] REPOSITORY Office Visit ([facility]) GILMA MILLER ([id number]) 1970 F [facility] Date Time Provider Department 08/23/17 9:40 AM ALIYAH VALDOVINOS) FAMPWS During your visit today, we recorded the following information about you: Pulse Respiration Blood pressure Weight 88/minute 16/minute 168/112 82.6 kg Aliyah Vadlovinos MD 08/23/2017 10:14 AM Signed Chief Complaint Patient presents with: left arm pain HPI Gilma Miller is a 47 year old female who presents here today for Evaluation of left arm pain. Symptoms started about 2 weeks ago without obvious injury or trauma. Pain located over left upper arm, described as constant soreness, 8/10, without radiation. Exacerbated with abduction and internal rotation, turning steering wheel, lifting 2 year old grandson. Treating with aleve and ibuprofen, using ice/heat which has not helped symptoms. Denies numbness, tingling, bruising, erythema, swelling, history of prior surgery or injury to left arm. Past medical history, appointments, medications, allergies reviewed. Previous Medical History PAST MEDICAL HISTORY Diagnosis Date - Acute cholecystitis - Chronic low back pain - HTN (hypertension) Previous Surgical History PAST SURGICAL HISTORY Procedure Laterality Date - LAPAROSCOPIC CHOLEYCYSTECTOMY 05/23/2015 - REMOVAL OF TONSILS,<11 Y/O Tonsillectomy - TUBAL LIGATION HX 1993 - VAGINAL HYSTERECTOMY 2014 Family History FAMILY HISTORY Problem Relation Age of Onset - Hypertension Mother - Hypertension Father - Coronary Artery Disease Mother - Coronary Artery Disease Father - Cancer Mother Breast - Cancer Father Lung Patient Allergies ALLERGIES Allergen Reactions - Mobic [Meloxicam] Hives - Naproxen GI Upset - Prednisone Hives, Shortness of Breath - Tylenol #3 [Codeine] Hives - Vicodin [Hydrocodon* GI Upset Nausea Current Medications Current Outpatient Prescriptions on File Prior to Visit: white petrolatum (AQUAPHOR HEALING) ointment Apply 1 application to affected area twice daily. oxyCODONE-acetaminophen (PERCOCET) 5-325 mg tablet Take 1 tablet by mouth every 6 hours as needed. mineral oil/hydrophil petrolatum (AQUAPHOR) oint Apply 1 application to affected area twice daily as needed. lisinopril-hydrochlorothiazide (PRINZIDE,ZESTORETIC) 20-12.5 mg per tablet Take 1 tablet by mouth twice daily. benzonatate (TESSALON PERLE) 100 mg capsule Take 2 capsules by mouth three times daily as needed. albuterol HFA (PROAIR HFA) 90 mcg/actuation inhaler Inhale 2 Puffs as instructed every 4 hours as needed for Wheezing/Shortness of Breath. etodolac (LODINE) 300 mg capsule Take 1 capsule by mouth every 8 hours. (Patient not taking: Reported on 05/22/2016) omeprazole (PRILOSEC) 20 mg capsule Take 1 capsule by mouth daily before breakfast. 1/2 hr before meal. (Patient not taking: Reported on 05/22/2016) TENS unit and electrodes cmpk 1 Package as needed (daily as needed for pain). fexofenadine (MONTRELL) 180 mg tablet Take 1 tablet by mouth once daily. (Patient not taking: Reported on 05/22/2016) Blood Pressure Cuff - Home Use BLOOD PRESSURE CUFF FOR HOME USE. DX: LABILE BLOOD PRESSURE 401.01 COMPOUNDED PRESCRIPTION Blood pressure machineDX: No current facility-administered medications on file prior to visit. 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 General Appearance: Well appearing, alert, in no acute distress, well-hydrated, well nourished.. Skin: Skin color, texture, turgor normal, no suspicious rashes or lesions. Musculoskeletal: TTP over deltoid and bicep, normal ROM, 5/5 strength, no bony TTP. Shoulder: Location: Left. Redness: No. Warmth: No. Tenderness to palpation: No. Swelling: No. Range of motion: WNL. Empty can test: negative. Health Maintenance List LIPID SCREEN due on 2014 DIABETES SCREEN due on 2014 MAMMOGRAM due on 01/01/2017 INFLUENZA(Season Ended) due on 12/07/2017 DTAP,TDAP,TD(2 - Td) due on 06/16/2019 PAP EVERY 5 YEARS due on 09/18/2019 HPV EVERY 5 YEARS due on 09/18/2019 ASSESSMENT/PLAN: 1. Left upper arm pain - ICD9: 729.5, ICD10: M79.622 (primary diagnosis) Suspect muscle strain or overuse injury. Will treat with steroid taper and have patient continue ibuprofen/aleve for pain OTC. Ice BID and rest. - METHYLPREDNISOLONE 4 MG TABLETS IN A DOSE PACK 2. Essential hypertension, benign - ICD9: 401.1, ICD10: I10 - poor control - Continue current medication(s) - Encouraged dietary sodium restriction/DASH diet - Recommended regular aerobic exercise. - Follow up in 1 month for BP recheck. - Reviewed risks of HTN and principles of treatment - Goal of BP <140/90 - LISINOPRIL 20 MG-HYDROCHLOROTHIAZIDE 12.5 MG TABLET Aliyah Valdovinos MD Referring Provider: SELF [200] Allergies As of Date: 08/23/2017 Noted Allergy Reaction MOBIC (MELOXICAM) 10/24/2009 4 - Hives NAPROXEN 10/24/2009 8 - GI Upset PREDNISONE 11/07/2009 4 - Hives 12 - Shortness of Breath TYLENOL #3 (CODEINE) 10/24/2009 4 - Hives VICODIN (HYDROCODONE-ACETAMINOPHE*09/27/2014 8 - GI Upset Comments: Nausea Date Reviewed: 08/23/2017 Reviewed by: Milton Mchugh Ma - Fully Assessed Reason for Visit: left arm pain [Other] Primary Visit Diagnosis:Left upper arm pain [M79.622] Other Visit Diagnosis:Essential hypertension, benign [I10] Order(s):lisinopril-hydrochlorothiazide (PRINZIDE,ZESTORETIC) 20-12.5 mg per tabletTake 1 tablet by mouth twice daily.Disp: 60 tabletRfl: 1 methylPREDNISolone (MEDROL, CIRILO,) 4 mg Dose-PackAs Instructed per packageDisp: 1 PackageRfl: 0 Prescriptions as of 08/23/2017 Sig: LISINOPRIL 20 MG-HYDROCHLOROT* Take 1 tablet by mouth twice * COMPOUNDED PRESCRIPTION BLOOD PRESSURE CUFF FOR HOME * COMPOUNDED PRESCRIPTION Blood pressure machine DX: METHYLPREDNISOLONE 4 MG TABLE* As Instructed per package WHITE PETROLATUM 41 % TOPICAL* Apply 1 application to affect* OXYCODONE-ACETAMINOPHEN 5 MG-* Take 1 tablet by mouth every * Patient not taking: Reported on 08/23/2017 MINERAL OIL-HYDROPHIL PETROLA* Apply 1 application to affect* Patient not taking: Reported on 08/23/2017 BENZONATATE 100 MG CAPSULE Take 2 capsules by mouth thre* ALBUTEROL SULFATE HFA 90 MCG/* Inhale 2 Puffs as instructed * Patient not taking: Reported on 08/23/2017 ETODOLAC 300 MG CAPSULE Take 1 capsule by mouth every* Patient not taking: Reported on 05/22/2016 OMEPRAZOLE 20 MG CAPSULE,ANGELINA* Take 1 capsule by mouth daily* Patient not taking: Reported on 05/22/2016 TENS UNIT AND ELECTRODES COMB* 1 Package as needed (daily as* FEXOFENADINE 180 MG TABLET Take 1 tablet by mouth once d* Patient not taking: Reported on 05/22/2016 Problem List As Of Date 08/23/2017 Noted Resolved Essential Hypertension, Benign [I10] INVALID FOR* More... Chronic low back pain [M54.5, G89.29] INVALID FOR* More... Heavy menses [N92.0] INVALID FOR*10/20/2014 Abnormal uterine bleeding [N93.9] INVALID FOR*10/20/2014 Irregular bleeding [N92.6] INVALID FOR*10/20/2014 Mixed incontinence [N39.46] INVALID FOR* Prescriptions ordered this encounter Disp Refills Start End LISINOPRIL 20 MG-HYDROCHLOROTHIAZIDE* 60 t* 1 08/23/2017 Route: ORAL Sig: Take 1 tablet by mouth twice daily. METHYLPREDNISOLONE 4 MG TABLETS IN A* 1 Pa* 0 08/23/2017 Sig: As Instructed per package Medications Discontinued During This Encounter lisinopril-hydrochlorothiazide (PRIN* 180 * 3 08/15/2016 08/23/2017 Route: ORAL Sig: Take 1 tablet by mouth twice daily. Disc: Reason for discontinue is not on file. Disposition: Return if symptoms worsen or fail to improve. Follow-up and Disposition History Recorded Encounter Status:Closed by ALIYAH VALDOVINOS MD on 08/23/17 EMERGENCY DEPARTMENT Observed: 07/09/2017 Status: F Source: [place] SUMMARY 5:38 PM [facility] [facility] Medical Records Department [address] [place] [address] Emergency Department Summary 07/09/17 1506 MR#: [id number] Acct: [id number] Name: GILMA MILLER Rep #: [id number] : 1970 47 From: Andrzej Allison MD PCP: Julita Bryant MD Status: DEP ER - ER Visit Summary Date of Service: 07/09/17 Chief Complaint: Vomiting and diarrhea History of Present Illness: The patient is a [address] Bryant. She reports that she has vomiting diarrhea that began 2 days ago. She is vomited 3- 4 times. No blood or emesis. She has had 5-6 episodes of diarrhea per day. No blood in her stools or black tarry stools. She complains of cramping diffuse abdominal pain is 4-10 at worst and 3 out of 10 currently. Is worsened by nothing and relieved by nothing. Patient reports that this has gone throughout her entire household. She has not been camping. She has not been on antibiotics recently. No possible bad food exposure. She does not drink well water. Physical Examination: Vitals: Stable. Afebrile. General: Well-nourished and well-developed. Head: Normocephalic atraumatic. Neck: Supple, no lymphadenopathy. No JVD. Nontender. Cardiovascular: Regular rate and rhythm. No murmurs. Respiratory: No respiratory distress. Clear to auscultation bilaterally. Abdominal: Soft, nontender, nondistended, normal bowel sounds. No guarding, rebound, or peritoneal signs. Back: Nontender. Extremities: Nontender, no edema. Skin: Normal color, no rash. Neurologic: Alert and oriented 3. Cranial nerves II through XII are intact. Normal strength and sensation. Psych: Normal affect. Emergency Department Course and Treatment: Patient refused an IV. She does not want any nausea medication this time. Is resting comfortably. Treatment Plan: Patient will be discharged with Zofran. Instructed to follow-up with primary care physician 1 to days if not improving. Disposition: To home in improved and stable condition. Impression: 1. Vomiting/diarrhea. This note was generated with [employer] dictation software. It may contain incorrect words, spelling, and punctuation that were not noted in review of the chart prior to signing ED Disposition - Plan for ED Patient: Disposition: Home or Assisted Living Chief Complaint: Nausea/Vomiting/Diarrhea Instructions: ED Gastroenteritis Viral Prescriptions: Ondansetron [Zofran Odt] 4 mg PO Q8H PRN PRN #10 tablet PRN Reason: Nausea Referrals: Julita Bryant MD [Primary Care Provider] - 1-2 Days if not improving What to do if you have Problems For any increased pain, shortness of breath, bleeding, nausea or vomiting, chest pain, or any unexpected problems, contact your Primary Care Provider. Call [facility] ([phone]) or report to the closest Emergency Room. Call 911 if necessary. 07/09/17 1738 <Electronically signed by Andrzej Allison MD> Date Andrzej Allison MD Cosigner Signature (If Indicated): Date CC: Julita Bryatn MD ALLERGIES ALLERGIES DATE TYPE / CODE NAME / CODE REACTION SEVERITY SOURCE 03/18/2018 Drug hydrocodone Nausea Unknown [place] Allergy/416 bitartrate/[id number] Community 947154([place] [address](RXNORM) [facility] ED CT) Repository 03/18/2018 Drug morphine/[id number] Chest tightness Unknown [place] Allergy/416 5(RXNORM) Community 084957([facility] ED CT) Repository 03/18/2018 Drug codeine/[id number] Vomiting Unknown [place] Allergy/416 (RXNORM) Community 638210([facility] ED CT) Repository 03/18/2018 Drug acetaminophen/F006 Nausea Unknown [place] Allergy/416 322043(RXNORM) [facility] 821335([facility] ED CT) Repository 03/18/2018 Drug naproxen/[id number] Hives Unknown [place] Allergy/416 0(RXNORM) Community 784787([facility] ED CT) Repository 03/18/2018 Drug meloxicam/[id number] Hives Unknown [place] Allergy/416 72(RXNORM) Community 406689([facility] ED CT) Repository 09/27/2014 DRUG/600754 HYDROCODONE-ACETAM GI UPSET [facility] 003(SNOMED INOPHEN [address] [place] [address]) Repository 11/07/2009 DRUG PREDNISONE HIVES [facility] INGREDI/419 [address] [place] 998412([facility] Repository ED CT) 10/24/2009 DRUG MELOXICAM HIVES [facility] INGREDI/[address] [place] 112349([facility] Repository ED CT) 10/24/2009 DRUG NAPROXEN GI UPSET [facility] INGREDI/[address] [place] 301283(SNOM Repository ED CT) 10/24/2009 DRUG CODEINE HIVES [address] 560299(SNOM Repository ED CT) ENCOUNTERS ENCOUNTERS ADMIT/DISCHARGE ACCOUNT NUMBER ADMITTING ENCOUNTER LOCATION SOURCE CLASS 03/19/2018 [id number] Ambulatory BMSBuilding: [place] [facility] Repository 03/18/2018 [id number] [facility], Ambulatory BMSBuilding: [place] Nita BMS..[facility] Repository 03/18/2018 [id number] [facility], Ambulatory BMSBuilding: [place] Nita BMS..[facility] Repository 03/18/2018 [id number] [facility], Ambulatory BMSBuilding: [place] Nita BMS.[facility] Repository 03/18/2018/03/20/20 [id number] [facility], Ambulatory [address] ding:[id number] Repository : CM234Bns: 1 03/18/2018/03/18/20 [id number] Ambulatory [address] Repository 03/18/2018/03/19/20 [id number] Ambulatory [address] Repository 03/17/2018/03/17/20 [id number] Emergency [address] ding:ED Repository 03/14/2018/03/14/20 [id number] Emergency [address] ding:ED Repository 02/22/2018/02/23/20 [id number] Emergency [address] ding:ED Repository 12/31/2017/01/02/20 [id number] Ambulatory [address] Repository 11/23/2017/11/24/19 [id number] Emergency [address] ding:ED Repository 11/05/2017/11/07/19 [id number] Ambulatory [address] Repository 11/03/2017/11/04/19 [id number] Emergency BBuilding:FRANCINE Mishra [address] [place] [address] Repository 09/20/2017/09/21/19 [id number] Ambulatory [address] Repository 09/20/2017/09/24/19 [id number] Ambulatory [address] Repository 09/03/2017/09/05/19 [id number] Ambulatory [address] Repository 08/23/2017/08/27/19 [id number] Ambulatory [address] Repository 07/09/2017/07/10/19 [id number] Emergency [place] Dorian[address] ding:ED Repository PAYERS PAYERS ENCOUNTER GUARANTOR PAYER SUBSCRIBER SOURCE 03/19/2018 GILMA Fernandez Primary GILMA Fernandez [place] [id number] Insurance:CARESOURCEP RADHADOB: [facility] ABBIE tan Number: [id number] [id number] Repository [address]Fek: [phone] Date:2018-03-18 O [phone] () [address]ATTN[place] [address]YO: 03/19/2018 Secondary NOT GIVENUNK [place] Insurance:SELF PAY [facility] Number: Effective Repository Date:2018-03-19 03/18/2018 GILMA Fernandez Primary GILMA Fernandez [place] [id number] Insurance:CARESOURCEP RADHADOB: [facility] ABBIE tan Number: [id number] [id number] Repository 336[address]Fvd: [phone]) Date:2018-03-18 O [phone] () [address]ATTN[place] [address]TI: 03/18/2018 Secondary NOT GIVENUNK [place] Insurance:SELF PAY [facility] Number: Effective Repository Date:2018-03-18 03/18/2018 GILMA Fernandez Primary GILMA Fernandez [place] [id number] Insurance:CARESOURCEP MICHELEB: [facility] ABBIE tan Number: [id number] [id number] Repository [address]Tke: [phone] Date:2018-03-18P O [phone] () [address]ATTN: [place] [address]EP: 03/18/2018 Secondary NOT GIVENUNK [place] Insurance:SELF PAY [facility] Number: Effective Repository Date:2018-03-18 03/18/2018 GILMA Fernandez Primary GILMA Rebecca [id number] Insurance:CARESOURCEP RADHADOB: [facility] ABBIE tan Number: [id number] [id number] Repository [address]Fha: ([phone]) Date:2018-03-18P O [phone] () [address]ATTN: [place] [address]SD: 03/18/2018 Secondary NOT GIVENUNK [place] Insurance:SELF PAY [facility] Number: Effective Repository Date:2018-03-18 03/18/2018 GILMA Fernandez Primary GILMA Fernandez [place] [id number] Insurance:CARESOURCEP RADHADOB: [facility] ABBIE tan Number: [id number], [place] [id number] Repository [address]Ouw: ([phone]) Date:2018-03-18P O [phone] () [address]ATTN: [place] [address]ME: 03/18/2018 Secondary NOT GIVENUNK [place] Insurance:SELF PAY [facility] Number: Effective Repository Date:2018-03-18 03/17/2018 GILMA Fernandez Primary GILMA Phamoster [id number] Insurance:CARESOURCEP RADHADOB: [facility] ABBIE tan Number: [id number], [place] [id number] Repository [address]Ccz: ([phone]) Date:2018-03-17P O [phone] () [address]ATTN: [place] [address]PM: 03/17/2018 Secondary NOT GIVENUNK [place] Insurance:SELF PAY [facility] Number: Effective Repository Date:2018-03-17 03/14/2018 GILMA Fernandez Primary GILMA Phamoster [id number] Insurance:CARESOURCEP RADHADOB: [facility] ABBIE tan Number: [id number], [place] [id number] Repository [address]Kfg: (330) Date:2018-03-14P O [phone] () [address]ATTN: [place] [address]EU: 03/14/2018 Secondary NOT GIVENUNK [place] Insurance:SELF PAY [facility] Number: Effective Repository Date:2018-03-14 02/22/2018 GILMA Fernandez Primary GILMA Fernandez [facility]636 Insurance:CARESOURCEP MICHELEB: [facility] marija Number: [id number], [place] [id number] Repository [address]Qed: ([phone]) Date:2018-02-22P O [phone] () [address]ATTN: [place] [address]NB: 02/22/2018 Secondary NOT GIVENUNK [place] Insurance:SELF PAY [facility] Number: Effective Repository Date:2018-02-22 11/23/2017 GILMA Fernandez Primary [facility]IL[facility]andez [id number] Insurance:CARESOURCEP MICHELEB: [facility] Number: [id number] [place], [place] [id number] Repository [address]Ugi: ([phone]) Date:2017-11-23P O [phone] () [address]ATTN: [place] [address]QU: 11/23/2017 Secondary NOT GIVENUNK [place] Insurance:SELF PAY [facility] Number: Effective Repository Date:2017-11-23 11/03/2017 GILMA Fernandez Primary GILMA Fernandez [facility]:CARESOURCE [facility]: [facility] [address] [id number] Repository [facility] Number: SARMAD ARCHULETA, [id number] [address]Fmw: Date:2017-11-03 [place] [address]Ejp: [id number] () Name:[address] ()Tel: [phone], [place] [phone] (JT) [address]WP: 07/09/2017 Gilma Fernandez Primary [place] [address] [place] Insurance:SELF PAY [address] [address]Hpf: Number: Effective Repository [phone] Date:2017-07-09 ()
== END 2018-03-17 21:49 | disposition home or self-care (01) ==
PROVIDERS: Emergency Provider Emergency Medicine; Family Provider Internal Medicine; PCP Internal Medicine
DX: R10.9 Unspecified abdominal pain (principal); R11.10 Vomiting, unspecified
CPT/HCPCS: 74176; 80048; 80076; 81001; 83690; 84484; 85025; 93005; 96361; 96374; 99283; J7030; A4216; J2405

== ENCOUNTER 2018-03-18 15:39 | Observation (INO) | payer MEDICAID, SELFPAY ==
[2018-03-17 19:47] VITALS: BMI 31.8
[2018-03-18 15:39] VITALS: BP 185/115; PULSE 101; RESP 18; TEMP 37.1; O2SAT 96; BMI 32.3
[2018-03-18] MEDS: HYDROmorphone 1 MG/ML Syringe 0.5 MG IV (16:23)
[2018-03-18] MEDS: Ondansetron 4 MG/2 ML Vial IV ×2 (16:23→20:51)
[2018-03-18] MEDS: 0.9% Normal Saline 1,000 ML 1000 ML IV (16:24)
[2018-03-18 16:38] LABS: Absolute Lymphocyte Count 1.32 X10^3/ul (0.83-4.51); Absolute Neutrophil Count 10.7 X10^3/uL (2.0-7.7); Basophil# 0.07 X10^3/uL; Basophil% 0.5 % (0-1); Eosinophil# 0.17 X10^3/uL; Eosinophils% 1.2 % (0-5); Hematocrit 45.9 % (37-47); Hemoglobin 15.4 g/dl (12.0-15.0); Lymphocyte # 1.32 X10^3/ul (4.0); Lymphocyte % 9.3 % (19-41); Mean Corp Hgb Conc 33.6 g/gl (32-36); Mean Corpuscular Hgb 28.4 pg (27.0-32.0); Mean Corpuscular Volume 84.7 fL (81-99); Monocyte# 1.89 X10^3/uL; Monocyte% 13.4 % (0-10); Neutrophil # 10.65 X10^3/uL (2.7-7.7); Neutrophil % 75.3 % (47-70); Platelet Count 390 K/mm3 (150-450); RBC Distribution Width CV 15.6 % (11.6-14.6); RBC Distribution Width SD 48.6 fl (35.1-43.9); Red Blood Count 5.42 M/mm3 (4.2-5.4); White Blood Count 14.1 K/mm3 (4.4-11.0)
--- NOTE | 2018-03-18 16:39 | ED.VISSUMM ---
- ER Visit Summary Date of Service: 03/18/18 Chief Complaint: Abdominal pain History of Present Illness: The patient is a 47 F presenting for evaluation due to abdominal pain. Patient reports that over the course last 5 days she has had a continuous epigastric abdominal pain. She is actually been seen in the emergency department for this twice, had lab work as well as imaging it was recommended follow-up with her primary care. Patient reports that she went to primary care today continuing to have this abdominal pain and was recommended that she probably needs admission for observation due to lab abnormalities. Patient states that it has been associated with some nausea and vomiting. She denies any presence of fevers. She denies any diarrhea or change in color of her stools. Patient states that she does not have a gallbladder. Review of systems otherwise negative. Physical Examination: Vital signs are within normal limits, patient is afebrile. General: Patient is well-nourished well-developed and in no acute distress. Head: Normocephalic, atraumatic Eyes: Pupils equal round and reactive bilaterally, extra occular motion intact bialterally, no evidence of scleral icterus ENT: Moist mucous membranes Neck: Supple, no lymphadenopathy, no JVD, no meningismus CVS: Heart regular rate and rhythm, no murmurs, rubs or gallops, radial pulses 2+ bilaterally Resp: Respirations nondistressed, lung sounds clear bilaterally Abdomen: Soft, epigastric and right upper quadrant tenderness to palpation with some voluntary guarding but no rebound tenderness or distention noted, nondistended, no palpable masses, normal bowel sounds Back: Nontender Extremities: Nontender, atraumatic, active full range of motion, no peripheral edema Skin: warm, no rashes, no petechia Neuro: Alert and oriented x 4, CN 2-12 intact, no lateralizing neurological defecits Psyc: Normal affect Test Results: CBC not significantly remarkable, chemistry panel shows evidence of increasing bilirubin with total bilirubin being 4.3, direct being 3.4, and alkaline phosphatase ALT and AST of 293, 360, and 141 respectively. Lipase was 56,314. Emergency Department Course and Treatment: Patient presented with persistent epigastric abdominal pain. I reviewed patient's records from yesterday, and she did have evidence of elevation of her bilirubin as well as her transaminases. Laboratory studies were repeated, showing also an increase in the patient's lipase. This is concerning for the possibility of gallstone pancreatitis. I discussed this with Dr. Gonzalez who stated that she would accept patient for likely ERCP. Disposition: Admission Impression: 1. Gallstone pancreatitis This note was generated with Jellycoaster dictation software. It may contain incorrect words, spelling, and punctuation that were not noted in review of the chart prior to signing ED Disposition - Plan for ED Patient: Chief Complaint: Abd Pain
[2018-03-18 16:40] LABS: Differential Indicated SCAN CRITERIA MET; POSITIVE COUNT NO; POSITIVE DIFFERENTIAL YES; POSITIVE MORPHOLOGY NO
[2018-03-18 17:57] VITALS: BP 146/79; PULSE 106; RESP 16; O2SAT 97
[2018-03-18 18:04] LABS: AST(SGOT) 141 U/L (15-37); Alanine Aminotransfer ALT/SGPT 360 U/L (13-56); Albumin, Serum 3.7 g/dL (3.2-5.0); Alkaline Phosphatase 293 U/L (45-117); Anion Gap 10 (5-15); BUN 6 mg/dL (7-18); BUN/Creat Ratio 8.5 RATIO (10-20); Bilirubin, Direct 3.43 mg/dL (0.00-0.30); Calcium,Total 8.8 mg/dL (8.5-10.1); Chloride 103 mmol/L (98-107); Creatinine, Serum 0.71 mg/dL (0.55-1.02); EST Glomerular Filtration Rate 93 mL/min (>60); Est Glom Filt Rate - Afr Amer 113 mL/min (>60); Estimated Creatinine Clearance 80.16 ml/min; Globulin 4.4 g/dL (2.2-4.2); Glucose 122 mg/dL (74-106); Potassium 3.2 mmol/L (3.5-5.1); Protein, Total 8.1 g/dL (6.4-8.2); Sodium Level 139 mmol/L (136-145)
--- NOTE | 2018-03-18 18:04 | NURSING ---
[address] [facility]
[2018-03-18] MEDS: Piperacil/Tazobactam 3.375 GM/50 ML ML IV (18:08)
[2018-03-18 18:16] VITALS: BP 175/94; PULSE 95; RESP 16; O2SAT 98
[2018-03-18 18:36] VITALS: BMI 32.5
[2018-03-18 18:39] VITALS: BMI 32.5
[2018-03-18 18:44] VITALS: BP 184/86; PULSE 93; RESP 20; TEMP 36.6; O2SAT 96
[2018-03-18] MEDS: 0.9% NaCl Peripheral Flush Adult/Peds IV (18:58)
--- NOTE | 2018-03-18 19:50 | PCM.HP.STD ---
History of Present Illness Date of Admission: 03/18/18 The patient is a 47 year old F presented to the ER due to back pain which started last night along with nausea and vomiting and epigastric pain. Previously patient did have epigastric pain and nausea vomiting starting on Saturday. Did go to the ER yesterday but was discharged. Patient has CT abdomen pelvis which was read as normal. Upon looking at the images is there were dilated bile ducts. Liver functions were elevated yesterday and there was more elevated today with a total bili of 4.3 and then lipase of 56,000-normal. Denies fevers or chills, does admit to flatus and had a normal bowel movement yesterday that was brown in color. She did have a laparoscopic cholecystectomy [place] [address] Hurt. Past Medical History Past Medical History (Chronic Problems): Chronic Problems HTN (hypertension) (Chronic) Allergies meloxicam [From Mobic] Allergy (Verified 03/18/18 15:39) Hives naproxen [From Naprosyn] Allergy (Verified 03/18/18 15:39) Hives acetaminophen [From Vicodin] Adverse Reaction (Verified 03/18/18 15:39) Nausea codeine Adverse Reaction (Verified 03/18/18 15:39) Vomiting hydrocodone bitartrate [From Vicodin] Adverse Reaction (Verified 03/18/18 15:39) Nausea morphine Adverse Reaction (Verified 03/18/18 15:39) Chest tightness Home Medications: Ambulatory Orders Medication Instructions Recorded Lisinopril/Hydrochlorothiazide 1 tablet PO BID 03/14/18 [Zestoretic 20/12.5 Tablet] Surgical History: adenoidectomy, cholecystectomy, tonsillectomy 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 Smoking Status: Former smoker Tobacco Use: Cigarettes - *Family History Maternal History Items: Heart Disease, - - mother with cad at early age Paternal History Items: Heart Disease, - - father with cad at early age Review of Systems Constitutional: Denies: Chills, Fever Eyes: Denies: Blurred vision HEENT: Denies: Difficulty Swallowing Cardiovascular: Denies: Chest Pain Respiratory: Denies: Shortness of Breath Gastrointestinal: Reports: Abdominal Pain, Nausea, Vomiting Genitourinary: Denies: Dysuria Musculoskeletal: Reports: Back Pain Skin: Denies: Rash Neurological: Denies: Balance problems Psychiatric: Denies: Anxiety, Depression Hematologic/ Lymphatic: Denies: Easy Bruising, Easy Bleeding VTE Information - Inpt Only VTE Present on Admission: Yes VTE Mechan Device Prophylaxis: SCD's VTE Pharm Prophylaxis ordered?: No Reason prophylaxis not ordered:: Medical Contraindication - Plan for ERCP tomorrow - Physical Exam General: Alert, Oriented x3, Cooperative, No apparent distress HEENT: Atraumatic Lungs: Normal air movement Cardiovascular: Regular rate Abdomen: Soft, Non-Distended, Tender - RUQ &epigastric>LUQ, no PS Extremities: No clubbing, No cyanosis, No edema Skin: No rashes Neurological: Cranial nerves II-XII grossly intact Psych/Mental Status: Normal Affect Vital Signs Temp Pulse Resp BP Pulse Ox 97.8 F 93 20 H 184/86 H 96 03/18/18 18:44 03/18/18 18:44 03/18/18 18:44 03/18/18 18:44 03/18/18 18:44 Oxygen Delivery Method Room Air Weight: 183 lb 10.321 oz Body Mass Index (BMI) 32.5 Finger Stick Blood Glucose 157 Laboratory Tests Past 24 Hrs 03/18/18 03/18/18 03/18/18 16:10 16:10 16:10 WBC 14.1 H RBC 5.42 H Hgb 15.4 H Hct 45.9 MCV 84.7 MCH 28.4 MCHC 33.6 RDW 15.6 H RDW Differential 48.6 H Plt Count 390 MPV 10.0 Immature Gran % (Auto) 0.300 Neut % (Auto) 75.3 H Lymph % (Auto) 9.3 L [place] % (Auto) 13.4 H Eos % (Auto) 1.2 Baso % (Auto) 0.5 Absolute Neuts (auto) 10.7 H Absolute Lymphs (auto) 1.32 Total Counted Not Reportable Differential Comment COMMENT Diff Path Review May foll Sodium 139 Potassium 3.2 L Chloride 103 Carbon Dioxide 26.0 Anion Gap 10 BUN 6 L Creatinine 0.71 Estim Creat Clear Calc 80.16 Est GFR (MDRD) Af Amer 113 Est GFR (MDRD) Non-Af 93 BUN/Creatinine Ratio 8.5 L Glucose 122 H Calcium 8.8 Total Bilirubin 4.30 H Direct Bilirubin 3.43 H AST 141 H ALT 360 H Alkaline Phosphatase 293 H Total Protein 8.1 Albumin 3.7 Globulin 4.4 H Lipase 07202 H Hepatitis A IgM Ab Pending Hep Bs Antigen Pending Hep B Core IgM Ab Pending Hepatitis C Ab (EIA) Pending Assessment/Plan All Active Problems Elevated troponin (Acute) Right upper quadrant abdominal pain (Acute) Abnormal cardiovascular stress test (Acute) Angina pectoris (Acute) Atypical chest pain (Acute) Preop cardiovascular exam (Acute) Cholecystitis without cholelithiasis (Acute) 47-year-old female with obstructive jaundice, pancreatitis 1. N.p.o./IV fluids, strict I's and O's 2. Obstructive jaundice-started Zosyn IV in the ER will continue, will repeat labs-LFTs and lipase in the morning. Dr. Pierce will see the patient in the morning to discuss an ERCP. 3. Hypokalemia replaced 4. Leukocytosis?continue Zosyn 3.375 g IV every 8 hours Nita Gonzalez M.D. Pager: [phone] [facility] [address] [place] [address], Outpatient [place], [address] [place] [id number] Office: [phone] Code Visit Inpatient E&M: 19997 Init Hosp L2
--- NOTE | 2018-03-18 19:55 | HP.PCM_ITS ---
History of Present Illness Date of Admission: 03/18/18 The patient is a 47 year old F presented to the ER due to back pain which started last night along with nausea and vomiting and epigastric pain. Previously patient did have epigastric pain and nausea vomiting starting on Saturday. Did go to the ER yesterday but was discharged. Patient has CT abdomen pelvis which was read as normal. Upon looking at the images is there were dilated bile ducts. Liver functions were elevated yesterday and there was more elevated today with a total bili of 4.3 and then lipase of 56,000-normal. Denies fevers or chills, does admit to flatus and had a normal bowel movement yesterday that was brown in color. She did have a laparoscopic cholecyst[place] [address] Hurt. Past Medical History Past Medical History (Chronic Problems): Chronic Problems HTN (hypertension) (Chronic) Allergies meloxicam [From Mobic] Allergy (Verified 03/18/18 15:39) Hives naproxen [From Naprosyn] Allergy (Verified 03/18/18 15:39) Hives acetaminophen [From Vicodin] Adverse Reaction (Verified 03/18/18 15:39) Nausea codeine Adverse Reaction (Verified 03/18/18 15:39) Vomiting hydrocodone bitartrate [From Vicodin] Adverse Reaction (Verified 03/18/18 15:39) Nausea morphine Adverse Reaction (Verified 03/18/18 15:39) Chest tightness Home Medications: Ambulatory Orders Medication Instructions Recorded Lisinopril/Hydrochlorothiazide 1 tablet PO BID 03/14/18 [Zestoretic 20/12.5 Tablet] Surgical History: adenoidectomy, cholecystectomy, tonsillectomy 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 Smoking Status: Former smoker Tobacco Use: Cigarettes - *Family History Maternal History Items: Heart Disease, - - mother with cad at early age Paternal History Items: Heart Disease, - - father with cad at early age Review of Systems Constitutional: Denies: Chills, Fever Eyes: Denies: Blurred vision HEENT: Denies: Difficulty Swallowing Cardiovascular: Denies: Chest Pain Respiratory: Denies: Shortness of Breath Gastrointestinal: Reports: Abdominal Pain, Nausea, Vomiting Genitourinary: Denies: Dysuria Musculoskeletal: Reports: Back Pain Skin: Denies: Rash Neurological: Denies: Balance problems Psychiatric: Denies: Anxiety, Depression Hematologic/ Lymphatic: Denies: Easy Bruising, Easy Bleeding VTE Information - Inpt Only VTE Present on Admission: Yes VTE Mechan Device Prophylaxis: SCD's VTE Pharm Prophylaxis ordered?: No Reason prophylaxis not ordered:: Medical Contraindication - Plan for ERCP tomorrow - Physical Exam General: Alert, Oriented x3, Cooperative, No apparent distress HEENT: Atraumatic Lungs: Normal air movement Cardiovascular: Regular rate Abdomen: Soft, Non-Distended, Tender - RUQ &epigastric>LUQ, no PS Extremities: No clubbing, No cyanosis, No edema Skin: No rashes Neurological: Cranial nerves II-XII grossly intact Psych/Mental Status: Normal Affect Vital Signs Temp Pulse Resp BP Pulse Ox 97.8 F 93 20 H 184/86 H 96 03/18/18 18:44 03/18/18 18:44 03/18/18 18:44 03/18/18 18:44 03/18/18 18:44 Oxygen Delivery Method Room Air Weight: 183 lb 10.321 oz Body Mass Index (BMI) 32.5 Finger Stick Blood Glucose 157 Laboratory Tests Past 24 Hrs 03/18/18 03/18/18 03/18/18 16:10 16:10 16:10 WBC 14.1 H RBC 5.42 H Hgb 15.4 H Hct 45.9 MCV 84.7 MCH 28.4 MCHC 33.6 RDW 15.6 H RDW Differential 48.6 H Plt Count 390 MPV 10.0 Immature Gran % (Auto) 0.300 Neut % (Auto) 75.3 H Lymph % (Auto) 9.3 L [place] % (Auto) 13.4 H Eos % (Auto) 1.2 Baso % (Auto) 0.5 Absolute Neuts (auto) 10.7 H Absolute Lymphs (auto) 1.32 Total Counted Not Reportable Differential Comment COMMENT Diff Path Review May foll Sodium 139 Potassium 3.2 L Chloride 103 Carbon Dioxide 26.0 Anion Gap 10 BUN 6 L Creatinine 0.71 Estim Creat Clear Calc 80.16 Est GFR (MDRD) Af Amer 113 Est GFR (MDRD) Non-Af 93 BUN/Creatinine Ratio 8.5 L Glucose 122 H Calcium 8.8 Total Bilirubin 4.30 H Direct Bilirubin 3.43 H AST 141 H ALT 360 H Alkaline Phosphatase 293 H Total Protein 8.1 Albumin 3.7 Globulin 4.4 H Lipase 29839 H Hepatitis A IgM Ab Pending Hep Bs Antigen Pending Hep B Core IgM Ab Pending Hepatitis C Ab (EIA) Pending Assessment/Plan All Active Problems Elevated troponin (Acute) Right upper quadrant abdominal pain (Acute) Abnormal cardiovascular stress test (Acute) Angina pectoris (Acute) Atypical chest pain (Acute) Preop cardiovascular exam (Acute) Cholecystitis without cholelithiasis (Acute) 47-year-old female with obstructive jaundice, pancreatitis 1. N.p.o./IV fluids, strict I's and O's 2. Obstructive jaundice-started Zosyn IV in the ER will continue, will repeat labs-LFTs and lipase in the morning. Dr. Pierce will see the patient in the morning to discuss an ERCP. 3. Hypokalemia replaced 4. Leukocytosis?continue Zosyn 3.375 g IV every 8 hours Nita Gonzalez M.D. Pager: [phone] [facility] [address] [place] [address], Outpatient [place], [address] [place] [id number] Office: [phone] Code Visit Inpatient E&M: 25037 Init Hosp L2
[2018-03-18 20:37] VITALS: BP 177/95; PULSE 91; RESP 14; TEMP 36.4; O2SAT 96
[2018-03-18] MEDS: HYDROmorphone 0.5 MG/0.5 ML SYRINGE IV (20:47)
[2018-03-19] VITALS (15 sets, daily range): BP systolic 121–184; BP diastolic 71–95; PULSE 86–105; RESP 14–16; TEMP 36.5–37.2; O2SAT 92–96; BMI 32.5
[2018-03-19] MEDS: HYDROmorphone 0.5 MG/0.5 ML SYRINGE IV ×4 (00:34→14:15)
[2018-03-19] MEDS: proMETHazine 25 MG/ML Syringe 12.5 MG IV ×2 (00:38→11:09)
[2018-03-19] MEDS: Piperacil/Tazobactam 3.375 GM/50 ML ML IV ×2 (04:00→13:40)
[2018-03-19 06:10] LABS: Absolute Lymphocyte Count 1.16 X10^3/ul (0.83-4.51); Absolute Neutrophil Count 5.8 X10^3/uL (2.0-7.7); Basophil# 0.05 X10^3/uL; Basophil% 0.6 % (0-1); Eosinophil# 0.18 X10^3/uL; Eosinophils% 2.2 % (0-5); Hematocrit 42.6 % (37-47); Hemoglobin 13.7 g/dl (12.0-15.0); Lymphocyte # 1.16 X10^3/ul (4.0); Lymphocyte % 14.3 % (19-41); Mean Corp Hgb Conc 32.2 g/gl (32-36); Mean Corpuscular Volume 87.1 fL (81-99); Mean Platelet Vol. 9.8 fl (6.2-12.0); Monocyte# 0.96 X10^3/uL; Monocyte% 11.8 % (0-10); Neutrophil # 5.78 X10^3/uL (2.7-7.7); Platelet Count 344 K/mm3 (150-450); RBC Distribution Width CV 16.1 % (11.6-14.6); Red Blood Count 4.89 M/mm3 (4.2-5.4); White Blood Count 8.1 K/mm3 (4.4-11.0)
[2018-03-19 06:12] LABS: POSITIVE COUNT NO; POSITIVE DIFFERENTIAL NO; POSITIVE MORPHOLOGY NO
[2018-03-19 06:38] LABS: AST(SGOT) 105 U/L (15-37); Alanine Aminotransfer ALT/SGPT 267 U/L (13-56); Albumin, Serum 3.1 g/dL (3.2-5.0); Alkaline Phosphatase 256 U/L (45-117); Anion Gap 10 (5-15); BUN 7 mg/dL (7-18); BUN/Creat Ratio 10.2 RATIO (10-20); Bilirubin, Direct 3.03 mg/dL (0.00-0.30); Calcium,Total 8.7 mg/dL (8.5-10.1); Chloride 108 mmol/L (98-107); Creatinine, Serum 0.68 mg/dL (0.55-1.02); EST Glomerular Filtration Rate 97 mL/min (>60); Est Glom Filt Rate - Afr Amer 118 mL/min (>60); Estimated Creatinine Clearance 83.69 ml/min; Globulin 3.8 g/dL (2.2-4.2); Glucose 96 mg/dL (74-106); Lipase 10206 U/L (73-393); Potassium 3.8 mmol/L (3.5-5.1); Protein, Total 6.9 g/dL (6.4-8.2); Sodium Level 141 mmol/L (136-145)
[2018-03-19] MEDS: Ondansetron 4 MG/2 ML Vial IV (07:47)
--- NOTE | 2018-03-19 08:14 | PCM.PN.SRG ---
Subjective: Patient still complaining of epigastric pain. This radiates to the back. - Physical Exam General: Alert, Oriented x3 Neck: Supple Lungs: Normal air movement Cardiovascular: Regular rate, Regular Rhythm Abdomen: Soft, Non-Distended, Tender - Epigastric Vital Signs Temp Pulse Resp BP Pulse Ox 98 F 94 16 177/91 H 95 03/19/18 07:58 03/19/18 07:58 03/19/18 07:58 03/19/18 07:58 03/19/18 07:58 Oxygen Delivery Method Room Air Weight: 183 lb 10.321 oz Body Mass Index (BMI) 32.5 Finger Stick Blood Glucose 157 Intake and Output for Last 24 Hours 03/17/18 03/18/18 03/19/18 23:59 23:59 23:59 Intake Total 1461 / 1461 Balance 1461 / 1461 Laboratory Tests Past 24 Hrs 03/18/18 03/18/18 03/18/18 16:10 16:10 16:10 WBC 14.1 H RBC 5.42 H Hgb 15.4 H Hct 45.9 MCV 84.7 MCH 28.4 MCHC 33.6 RDW 15.6 H RDW Differential 48.6 H Plt Count 390 MPV 10.0 Immature Gran % (Auto) 0.300 Neut % (Auto) 75.3 H Lymph % (Auto) 9.3 L [place] % (Auto) 13.4 H Eos % (Auto) 1.2 Baso % (Auto) 0.5 Absolute Neuts (auto) 10.7 H Absolute Lymphs (auto) 1.32 Total Counted Not Reportable Differential Comment COMMENT Diff Path Review May foll Sodium 139 Potassium 3.2 L Chloride 103 Carbon Dioxide 26.0 Anion Gap 10 BUN 6 L Creatinine 0.71 Estim Creat Clear Calc 80.16 Est GFR (MDRD) Af Amer 113 Est GFR (MDRD) Non-Af 93 BUN/Creatinine Ratio 8.5 L Glucose 122 H Calcium 8.8 Total Bilirubin 4.30 H Direct Bilirubin 3.43 H AST 141 H ALT 360 H Alkaline Phosphatase 293 H Total Protein 8.1 Albumin 3.7 Globulin 4.4 H Lipase 16929 H Hepatitis A IgM Ab Pending Hep Bs Antigen Pending Hep B Core IgM Ab Pending Hepatitis C Ab (EIA) Pending 03/19/18 03/19/18 06:00 06:00 WBC 8.1 RBC 4.89 Hgb 13.7 Hct 42.6 MCV 87.1 MCH 28.0 MCHC 32.2 RDW 16.1 H RDW Differential 51.0 H Plt Count 344 MPV 9.8 Immature Gran % (Auto) 0.100 Neut % (Auto) 71.0 H Lymph % (Auto) 14.3 L [place] % (Auto) 11.8 H Eos % (Auto) 2.2 Baso % (Auto) 0.6 Absolute Neuts (auto) 5.8 Absolute Lymphs (auto) 1.16 Total Counted Not Reportable Differential Comment Diff Path Review Sodium 141 Potassium 3.8 Chloride 108 H Carbon Dioxide 23.0 Anion Gap 10 BUN 7 Creatinine 0.68 Estim Creat Clear Calc 83.69 Est GFR (MDRD) Af Amer 118 Est GFR (MDRD) Non-Af 97 BUN/Creatinine Ratio 10.2 Glucose 96 Calcium 8.7 Total Bilirubin 4.10 H Direct Bilirubin 3.03 H AST 105 H ALT 267 H Alkaline Phosphatase 256 H Total Protein 6.9 Albumin 3.1 L Globulin 3.8 Lipase 49666 H Hepatitis A IgM Ab Hep Bs Antigen Hep B Core IgM Ab Hepatitis C Ab (EIA) Medical Necessity - Tobacco Use Smoking Status: Former smoker Tobacco Use: Cigarettes Assessment/Plan All Active Problems Elevated troponin (Acute) Right upper quadrant abdominal pain (Acute) Abnormal cardiovascular stress test (Acute) Angina pectoris (Acute) Atypical chest pain (Acute) Preop cardiovascular exam (Acute) Cholecystitis without cholelithiasis (Acute) 47-year-old female with obstructive jaundice 1. The patient had a CT scan which my opinion shows dilated bile ducts. Her LFTs were markedly elevated yesterday and worsened from the day before when she was in the emergency room. It is likely that she has a retained stone in her common bile duct versus primary stone with obstructive jaundice and gallstone pancreatitis. I recommend ERCP with stone removal. 2. I described ERCP to the patient in detail to the patient. I described the risks including but not limited to bleeding, infection, perforation of the bile duct of the bowels, worsening of pancreatitis. The patient understands the risks and all the patient's questions were answered. The patient consents to proceed with procedure this afternoon. 3. Patient is on antibiotics and n.p.o. I would not start a diet until the patient is pain-free from pancreatitis. Alexandru Pierce MD Pager: [facility] [address] [place] [address], [facility] [address] [place] [address] Office:
[2018-03-19] MEDS: hydroCHLOROthiazide 12.5mg 12.5 MG PO ×2 (08:16→22:08)
[2018-03-19] MEDS: Lisinopril 20 MG Tablet PO (08:16)
--- NOTE | 2018-03-19 08:17 | PN.SURG_ITS ---
Subjective: Patient still complaining of epigastric pain. This radiates to the back. - Physical Exam General: Alert, Oriented x3 Neck: Supple Lungs: Normal air movement Cardiovascular: Regular rate, Regular Rhythm Abdomen: Soft, Non-Distended, Tender - Epigastric Vital Signs Temp Pulse Resp BP Pulse Ox 98 F 94 16 177/91 H 95 03/19/18 07:58 03/19/18 07:58 03/19/18 07:58 03/19/18 07:58 03/19/18 07:58 Oxygen Delivery Method Room Air Weight: 183 lb 10.321 oz Body Mass Index (BMI) 32.5 Finger Stick Blood Glucose 157 Intake and Output for Last 24 Hours 03/17/18 03/18/18 03/19/18 23:59 23:59 23:59 Intake Total 1461 / 1461 Balance 1461 / 1461 Laboratory Tests Past 24 Hrs 03/18/18 03/18/18 03/18/18 16:10 16:10 16:10 WBC 14.1 H RBC 5.42 H Hgb 15.4 H Hct 45.9 MCV 84.7 MCH 28.4 MCHC 33.6 RDW 15.6 H RDW Differential 48.6 H Plt Count 390 MPV 10.0 Immature Gran % (Auto) 0.300 Neut % (Auto) 75.3 H Lymph % (Auto) 9.3 L Luce % (Auto) 13.4 H Eos % (Auto) 1.2 Baso % (Auto) 0.5 Absolute Neuts (auto) 10.7 H Absolute Lymphs (auto) 1.32 Total Counted Not Reportable Differential Comment COMMENT Diff Path Review May foll Sodium 139 Potassium 3.2 L Chloride 103 Carbon Dioxide 26.0 Anion Gap 10 BUN 6 L Creatinine 0.71 Estim Creat Clear Calc 80.16 Est GFR (MDRD) Af Amer 113 Est GFR (MDRD) Non-Af 93 BUN/Creatinine Ratio 8.5 L Glucose 122 H Calcium 8.8 Total Bilirubin 4.30 H Direct Bilirubin 3.43 H AST 141 H ALT 360 H Alkaline Phosphatase 293 H Total Protein 8.1 Albumin 3.7 Globulin 4.4 H Lipase 27144 H Hepatitis A IgM Ab Pending Hep Bs Antigen Pending Hep B Core IgM Ab Pending Hepatitis C Ab (EIA) Pending 03/19/18 03/19/18 06:00 06:00 WBC 8.1 RBC 4.89 Hgb 13.7 Hct 42.6 MCV 87.1 MCH 28.0 MCHC 32.2 RDW 16.1 H RDW Differential 51.0 H Plt Count 344 MPV 9.8 Immature Gran % (Auto) 0.100 Neut % (Auto) 71.0 H Lymph % (Auto) 14.3 L [place]uce % (Auto) 11.8 H Eos % (Auto) 2.2 Baso % (Auto) 0.6 Absolute Neuts (auto) 5.8 Absolute Lymphs (auto) 1.16 Total Counted Not Reportable Differential Comment Diff Path Review Sodium 141 Potassium 3.8 Chloride 108 H Carbon Dioxide 23.0 Anion Gap 10 BUN 7 Creatinine 0.68 Estim Creat Clear Calc 83.69 Est GFR (MDRD) Af Amer 118 Est GFR (MDRD) Non-Af 97 BUN/Creatinine Ratio 10.2 Glucose 96 Calcium 8.7 Total Bilirubin 4.10 H Direct Bilirubin 3.03 H AST 105 H ALT 267 H Alkaline Phosphatase 256 H Total Protein 6.9 Albumin 3.1 L Globulin 3.8 Lipase 84323 H Hepatitis A IgM Ab Hep Bs Antigen Hep B Core IgM Ab Hepatitis C Ab (EIA) Medical Necessity - Tobacco Use Smoking Status: Former smoker Tobacco Use: Cigarettes Assessment/Plan All Active Problems Elevated troponin (Acute) Right upper quadrant abdominal pain (Acute) Abnormal cardiovascular stress test (Acute) Angina pectoris (Acute) Atypical chest pain (Acute) Preop cardiovascular exam (Acute) Cholecystitis without cholelithiasis (Acute) 47-year-old female with obstructive jaundice 1. The patient had a CT scan which my opinion shows dilated bile ducts. Her LFTs were markedly elevated yesterday and worsened from the day before when she was in the emergency room. It is likely that she has a retained stone in her common bile duct versus primary stone with obstructive jaundice and gallstone pancreatitis. I recommend ERCP with stone removal. 2. I described ERCP to the patient in detail to the patient. I described the risks including but not limited to bleeding, infection, perforation of the bile duct of the bowels, worsening of pancreatitis. The patient understands the risks and all the patient's questions were answered. The patient consents to proceed with procedure this afternoon. 3. Patient is on antibiotics and n.p.o. I would not start a diet until the patient is pain-free from pancreatitis. Alexandru Pierce MD Pager: [facility] [address] [place] [address], [facility] [address] [place] [address] Office:
[2018-03-19] MEDS: hydrALAZINE 20 MG/ML Vial 5 MG IV (09:43)
[2018-03-19] MEDS: 0.9% NaCl Peripheral Flush Adult/Peds IV (11:10)
--- NOTE | 2018-03-19 14:00 | EKG12_ITS ---
Test Reason : Blood Pressure : / mmHG Vent. Rate : 093 BPM Atrial Rate : 093 BPM P-R Int : 134 ms QRS Dur : 082 ms QT Int : 370 ms P-R-T Axes : 026 003 000 degrees QTc Int : 460 ms Normal sinus rhythm Nonspecific T wave abnormality Abnormal ECG When compared with ECG of 17-MAR-2018 20:40, MANUAL COMPARISON REQUIRED, DATA IS UNCONFIRMED Confirmed by MARLENI MCKEE, RUTH ([id number]), editor dictionary PAULINA ALONZO ([id number]) on 03/24/2018 7:55:08 AM Referred By: Nita Gonzalez Confirmed By:RUTH YEPEZ MD
[2018-03-19 14:40] LABS: Pathologist Review Reviewed
--- NOTE | 2018-03-19 16:25 | RAD_ITS ---
STUDY: ERCP WITH BALLOON STRIPPING AND SPHINCTEROTOMY. REASON FOR EXAM: Female, 47 years old. Abdominal pain. Flank pain. RADIATION DOSAGE (If Supplied By Facility): CTDIvol = ( ) mGy, DLP = ( ) mGycm. Individualized dose optimization techniques were used for this CT.? FLUOROSCOPY TIME (if supplied): (Not provided) minutes/seconds TECHNIQUE: 2 images were presented for interpretation. COMPARISON: CT of the abdomen and pelvis, March 17, 2018. FINDINGS: The images demonstrate the endoscope with its tip in the second portion of duodenum. The initial image demonstrates a wire extending upward in the CBD. There is contrast-enhancement within the CBD which is of normal diameter. There is an abrupt termination of the contrast in the distal duct. Second image demonstrates evidence of balloon stripping with the balloon near the ampulla. The proximal CBD and common hepatic duct appear normal. Please refer to the operative report for further details. RAD/ERCP Biliary Only IMPRESSION: ERCP in the OR. Electronically Signed: Stanislav Bee DO at 17:17 EST Tel [phone], Service support ,
--- NOTE | 2018-03-19 16:35 | CHAPLAIN ---
patient was asleep and I did not disturb
--- NOTE | 2018-03-19 16:47 | OP.ENDO_ITS ---
Patient Name: Gilma Miller Procedure Date: 03/19/2018 4:02 PM Date of : 1970 Age: 47 Procedure: ERCP Indications: Elevated liver enzymes Providers: Alexandru Pierce MD Referring MD: Nita Gonzalez MD Medicines: General Anesthesia Patient Profile: This is a 47 year old female. Refer to note in patient chart for documentation of history and physical. Complications: No immediate complications. Estimated blood loss: Minimal. Procedure: Pre-Anesthesia Assessment: - Prior to the procedure, a History and Physical was performed, and patient medications and allergies were reviewed. The patient's tolerance of previous anesthesia was also reviewed. The risks and benefits of the procedure and the sedation options and risks were discussed with the patient. All questions were answered, and informed consent was obtained. Prior Anticoagulants: The patient has taken no previous anticoagulant or antiplatelet agents. After reviewing the risks and benefits, the patient was deemed in satisfactory condition to undergo the procedure. After obtaining informed consent, the scope was passed under direct vision. Throughout the procedure, the patient's blood pressure, pulse, and oxygen saturations were monitored continuously. The duodenoscope was introduced through the mouth, and advanced to the duodenum and used to inject contrast into the bile duct. The ERCP was accomplished without difficulty. The patient tolerated the procedure well. Scope In: 4:33:15 PM Scope Out: 4:39:32 PM Total Procedure Duration Time 0 hours 6 minutes 17 seconds Findings: The major papilla was normal. A 0.035 inch x 260 cm straight Dreamwire was passed into the biliary tree. The short-nosed traction sphincterotome was passed over the guidewire and the bile duct was then deeply cannulated. Contrast was injected. Opacification of the hepatic duct bifurcation was successful. Biliary sphincterotomy was made with a monofilament traction (standard) sphincterotome using ERBE electrocautery. There was no post-sphincterotomy bleeding. To discover objects, the biliary tree was swept with a 12 mm balloon starting at the bifurcation. There were no stones identified in the duct and there was bile flow. The endoscope was withdrawn from the patient. Impression: - The major papilla appeared normal. - A biliary sphincterotomy was performed. - The biliary tree was swept and duct was dilated but no stones were found. Recommendation: - NPO. - [facility] to [facility]. Procedure Code(s): --- Professional --- 49650, Endoscopic retrograde cholangiopancreatography (ERCP); with sphincterotomy/papillotomy Diagnosis Code(s): --- Professional --- R74.8, Abnormal levels of other serum enzymes CPT copyright 2017 [employer]. All rights reserved. The codes documented in this report are preliminary and upon avionics engineer review may be revised to meet current compliance requirements. Alexandru Pierce MD 03/19/2018 4:47:06 PM This report has been signed electronically. Number of Addenda: 0 Note Initiated On: 03/19/2018 4:02 PM
--- NOTE | 2018-03-19 17:06 | PCA ---
pt off floor
[2018-03-20 03:27] VITALS: BP 156/85; PULSE 108; RESP 16; TEMP 36.8; O2SAT 94
[2018-03-20 04:08] LABS: HEPATITIS B SURFACE AG Negative (Negative); Hepatitis A IgM Antibody Negative (Negative); Hepatitis B Core AB IgM Negative (Negative)
[2018-03-20 06:02] LABS: Absolute Lymphocyte Count 1.23 X10^3/ul (0.83-4.51); Absolute Neutrophil Count 10.7 X10^3/uL (2.0-7.7); Basophil# 0.04 X10^3/uL; Basophil% 0.3 % (0-1); Eosinophil# 0.14 X10^3/uL; Hematocrit 43.7 % (37-47); Lymphocyte # 1.23 X10^3/ul (4.0); Lymphocyte % 9.2 % (19-41); Mean Corpuscular Hgb 27.8 pg (27.0-32.0); Mean Corpuscular Volume 86.7 fL (81-99); Mean Platelet Vol. 9.9 fl (6.2-12.0); Monocyte# 1.25 X10^3/uL; Monocyte% 9.3 % (0-10); Neutrophil # 10.71 X10^3/uL (2.7-7.7); Neutrophil % 79.9 % (47-70); Platelet Count 354 K/mm3 (150-450); RBC Distribution Width SD 50.3 fl (35.1-43.9); Red Blood Count 5.04 M/mm3 (4.2-5.4); White Blood Count 13.4 K/mm3 (4.4-11.0)
[2018-03-20] MEDS: HYDROmorphone 0.5 MG/0.5 ML SYRINGE IV (06:10)
[2018-03-20 06:12] LABS: POSITIVE COUNT NO; POSITIVE DIFFERENTIAL NO; POSITIVE MORPHOLOGY NO
[2018-03-20] MEDS: proMETHazine 25 MG/ML Syringe 12.5 MG IV (06:15)
[2018-03-20 06:28] LABS: ALB/GLOB Ratio 0.7 RATIO (0.9-2.4); AST(SGOT) 75 U/L (15-37); Alanine Aminotransfer ALT/SGPT 201 U/L (13-56); Albumin, Serum 2.9 g/dL (3.2-5.0); Alkaline Phosphatase 286 U/L (45-117); Anion Gap 12 (5-15); BUN 7 mg/dL (7-18); BUN/Creat Ratio 12.1 RATIO (10-20); Calcium,Total 8.5 mg/dL (8.5-10.1); Chloride 101 mmol/L (98-107); Creatinine, Serum 0.58 mg/dL (0.55-1.02); EST Glomerular Filtration Rate 118 mL/min (>60); Est Glom Filt Rate - Afr Amer 142 mL/min (>60); Estimated Creatinine Clearance 98.12 ml/min; Globulin 4.3 g/dL (2.2-4.2); Glucose 72 mg/dL (74-106); Potassium 4.4 mmol/L (3.5-5.1); Protein, Total 7.2 g/dL (6.4-8.2); Sodium Level 131 mmol/L (136-145)
[2018-03-20 06:30] LABS: Lipase 662 U/L (73-393)
--- NOTE | 2018-03-20 07:03 | PCM.PN.SRG ---
Subjective: ERCP did not show any stones may have passed prior to ERCP, patient complains of still constant 8 /10 abdominal pain and occasional nausea, but also states she is hungry, denies flatus or bowel movement, liver functions are improving, patient has not been ambulating - Physical Exam General: Alert, Oriented x3, Cooperative, No apparent distress Lungs: Normal air movement Abdomen: Soft, Non-Distended, Tender - Epigastric and right upper quadrant, no peritoneal signs Vital Signs Temp Pulse Resp BP Pulse Ox 98.3 F 108 H 16 156/85 H 94 03/20/18 03:27 03/20/18 03:27 03/20/18 03:27 03/20/18 03:27 03/20/18 03:27 Oxygen Delivery Method Room Air Weight: 183 lb 10.321 oz Body Mass Index (BMI) 32.5 Finger Stick Blood Glucose 157 Intake and Output for Last 24 Hours 03/18/18 03/19/18 03/20/18 23:59 23:59 23:59 Intake Total 3590 / 3590 1440 / 1440 Output Total 1750 / 1750 Balance 1840 / 1840 1440 / 1440 Laboratory Tests Past 24 Hrs 03/18/18 03/20/18 03/20/18 16:10 05:50 05:50 WBC 13.4 H RBC 5.04 Hgb 14.0 Hct 43.7 MCV 86.7 MCH 27.8 MCHC 32.0 RDW 16.0 H RDW Differential 50.3 H Plt Count 354 MPV 9.9 Immature Gran % (Auto) 0.300 Neut % (Auto) 79.9 H Lymph % (Auto) 9.2 L [place] % (Auto) 9.3 Eos % (Auto) 1.0 Baso % (Auto) 0.3 Absolute Neuts (auto) 10.7 H Absolute Lymphs (auto) 1.23 Total Counted Not Reportable Diff Path Review Reviewed Sodium 131 L Potassium 4.4 Chloride 101 Carbon Dioxide 18.0 L Anion Gap 12 BUN 7 Creatinine 0.58 Estim Creat Clear Calc 98.12 Est GFR (MDRD) Af Amer 142 Est GFR (MDRD) Non-Af 118 BUN/Creatinine Ratio 12.1 Glucose 72 L Calcium 8.5 Total Bilirubin 2.00 H AST 75 H ALT 201 H Alkaline Phosphatase 286 H Total Protein 7.2 Albumin 2.9 L Globulin 4.3 H Albumin/Globulin Ratio 0.7 L Lipase 03/20/18 05:50 WBC RBC Hgb Hct MCV MCH MCHC RDW RDW Differential Plt Count MPV Immature Gran % (Auto) Neut % (Auto) Lymph % (Auto) [place] % (Auto) Eos % (Auto) Baso % (Auto) Absolute Neuts (auto) Absolute Lymphs (auto) Total Counted Diff Path Review Sodium Potassium Chloride Carbon Dioxide Anion Gap BUN Creatinine Estim Creat Clear Calc Est GFR (MDRD) Af Amer Est GFR (MDRD) Non-Af BUN/Creatinine Ratio Glucose Calcium Total Bilirubin AST ALT Alkaline Phosphatase Total Protein Albumin Globulin Albumin/Globulin Ratio Lipase 662 H Medical Necessity - Tobacco Use Smoking Status: Former smoker Tobacco Use: Cigarettes Assessment/Plan All Active Problems Elevated troponin (Acute) Right upper quadrant abdominal pain (Acute) Abnormal cardiovascular stress test (Acute) Angina pectoris (Acute) Atypical chest pain (Acute) Preop cardiovascular exam (Acute) Cholecystitis without cholelithiasis (Acute) 47-year-old female with obstructive jaundice-status post ERCP stone previously passed, improving LFTs, pancreatitis-improving lipase 1. Clears 2. Leukocytosis question secondary to procedure, antibiotic stopped due to ERCP showing clear common bile duct with no obstruction 3. Ambulate [place] Nita Gonzalez M.D. Pager: [phone] [facility] [address] [place] [address], [facility], [address] [place] [address] Office: [phone]
[2018-03-20 07:20] VITALS: BP 149/98; PULSE 98; RESP 16; TEMP 36.9; O2SAT 94
[2018-03-20 07:43] VITALS: BP 147/73; PULSE 98; RESP 16; TEMP 36.8; O2SAT 93
[2018-03-20 07:43] LABS: Hep C Antibodies <0.1 s/co ratio (0.0-0.9)
[2018-03-20] MEDS: Lisinopril 20 MG Tablet PO (08:48)
[2018-03-20] MEDS: hydroCHLOROthiazide 12.5mg 12.5 MG PO (08:48)
--- NOTE | 2018-03-20 09:00 | NURSING ---
WHen I was giving her medication, the patient stated she was experiencing chest pain. Pain level was an 8 out of 10. Talked with the primary nurse and informed her of the patient's complaints. Per her nurse, obtained a set of vitals, and the nurse will be in to see the patient.
[2018-03-20] MEDS: 0.9% NaCl Peripheral Flush Adult/Peds IV (09:07)
[2018-03-20 09:10] VITALS: BP 168/86; PULSE 94; TEMP 36.6; O2SAT 95
[2018-03-20] MEDS: Ketorolac 30 MG/ML Syringe IV (09:10)
[2018-03-20] MEDS: Acetaminophen 500 MG Tablet 1000 MG PO (11:00)
[2018-03-20] MEDS: Ondansetron 4 MG/2 ML Vial IV (11:03)
[2018-03-20 11:04] VITALS: BP 137/67; PULSE 89; RESP 16; TEMP 36.7; O2SAT 95
--- NOTE | 2018-03-20 12:38 | DCINST_ITS ---
Discharge Diet: Light diet - advance as tolerated Discharge Activity: August Shower Lifting Restrictions: none Allergies/Adverse Reactions: Allergies meloxicam [From Mobic] Allergy (Verified 03/18/18 15:39) Hives naproxen [From Naprosyn] Allergy (Verified 03/18/18 15:39) Hives acetaminophen [From Vicodin] Adverse Reaction (Verified 03/18/18 15:39) Nausea codeine Adverse Reaction (Verified 03/18/18 15:39) Vomiting hydrocodone bitartrate [From Vicodin] Adverse Reaction (Verified 03/18/18 15:39) Nausea morphine Adverse Reaction (Verified 03/18/18 15:39) Chest tightness Medications to take at Discharge Lisinopril/Hydrochlorothiazide [Zestoretic 20/12.5 Tablet] 1 tablet PO BID 03/14/18 Primary Care Physician: Rosana Bryant MD [Primary Care Provider] - Test Results: Test results from this visit will be discussed in further detail at your follow- up appointment, if applicable. Proposed Discharge Date: 03/20/18
[2018-03-20 14:18] VITALS: BP 140/75; PULSE 98; RESP 16; TEMP 36.8; O2SAT 97
--- NOTE | 2018-03-20 14:52 | CHAPLAIN ---
Type of Pastoral Visit _x__ Initial Visit ___ Follow-up Visit ___ On-call Visit ___ General Patient Visit ___ Spiritual Assessment ___ Family Conference ___ Bereavement ___ Rapid Response ___ Code Blue ___ Other (describe below) Pastoral Care Referral From _x__ Patient ___ Family ___ Nurse ___ Physician ___ Equity Trader ___ Olap Developer ___ Other (describe below) Sacrament/Intervention ___ Active listening ___ Anointing ___ Yazidi ___ Bereavement ___ Communion ___ [place] exploration ___ ___ Life review ___ Prayer ___ Reconciliation ___ Sacrament of Sick _x__ Supportive presence ___ Wedding ___ Other (describe below) Pastoral Comments patient said that her evangelical had already been notified of her admission here as previously requested
[2018-03-20 14:57] LABS: Hematocrit 39.2 % (37-47); Hemoglobin 12.6 g/dl (12.0-15.0); Mean Corp Hgb Conc 32.1 g/gl (32-36); Mean Corpuscular Hgb 27.9 pg (27.0-32.0); Mean Corpuscular Volume 86.9 fL (81-99); Mean Platelet Vol. 9.3 fl (6.2-12.0); Platelet Count 296 K/mm3 (150-450); RBC Distribution Width CV 15.9 % (11.6-14.6); RBC Distribution Width SD 50.8 fl (35.1-43.9); Red Blood Count 4.51 M/mm3 (4.2-5.4)
[2018-03-20 15:00] LABS: Scan Indicated on CBC? Y/N NO
--- OUTSIDE RECORDS SUMMARY | 2018-05-04 23:34 | XMS RPT_ITS ---
:1970 Author Organization OHIP Support Name Relationship Address Phone LI, RIGOBERTO Unavailable [address] + [place] [address] UE Unavailable Unavailable Unavailable LI, RIGOBERTO Unavailable [address] + [place] [address] UE Unavailable Unavailable Unavailable LI, RIGOBERTO Unavailable [address] + [place] [address] UE Unavailable Unavailable Unavailable LI, RIGOBERTO Unavailable [address] + [place] [address] UE Unavailable Unavailable Unavailable LI, RIGOBERTO Unavailable [address] + [place] [address] UE Unavailable Unavailable Unavailable LI, RIGOBERTO Unavailable [address] + [place] [address] UE Unavailable Unavailable Unavailable LI, RIGOBERTO Unavailable [address] + [place] [address] UE Unavailable Unavailable Unavailable LI, RIGOBERTO Unavailable [address] + [place] [address] UE Unavailable Unavailable Unavailable LI, RIGOBERTO Unavailable [address] + [place] [address] UE Unavailable Unavailable Unavailable LI, RIGOBERTO Unavailable Unavailable + [employer] Unavailable . +. [place] [address] LI, RIGOBERTO Unavailable [address] + [place] [address] Care Team Providers Name Role Phone LARISA SANDRA Attending Unavailable PHYSICIAN, NONE Primary Care Unavailable ALIYAH VALDOVINOS () Attending Unavailable JAMES JORDAN (OUTREACH WORKER) Attending Unavailable GANTA, JULITA Referring Unavailable PODLOGARSTEPHANIE (JARVIS) Attending Unavailable JAMES JORDAN (JARVIS) Attending Unavailable PODLOGAR, STEPHANIE (OUTREACH WORKER) Referring Unavailable Ganta, Julita Primary Care Unavailable Reena Olivier Attending Unavailable Ganta, Julita Primary Care Unavailable Robotham, Nita Admitting Unavailable Robotham, Nita Attending Unavailable Robotham, Nita Referring Unavailable Robotham, Nita Admitting Unavailable Robotham, Nita Attending Unavailable Robotham, Nita Referring Unavailable Ganta, Julita Primary Care Unavailable Robotham, Nita Consulting Unavailable Ganta, Julita Primary Care Unavailable Andrzej Allison Attending Unavailable Ganta, Julita Primary Care Unavailable Cassie Celis Attending Unavailable Ganta, Julita Primary Care Unavailable Hamlet Waters Attending Unavailable Ganta, Julita Primary Care Unavailable Patrice Sanders Attending Unavailable Jose Juan Matias Attending Unavailable Robotham, Nita Referring Unavailable Robotham, Nita Admitting Unavailable Robotham, Nita Attending Unavailable Robotham, Nita Referring Unavailable Ganta, Julita Primary Care Unavailable Robotham, Nita Consulting Unavailable Robotham, Nita Admitting Unavailable Alexandru Pierce Attending Unavailable Robotham, Nita Referring Unavailable Ganta, Julita Primary Care Unavailable Robotham, Nita Consulting Unavailable PROBLEMS PROBLEMS DATE TYPE CONDITION / CODE ATTENDING STATUS SOURCE 04/16/2018 Unknown R94.31 - Abnormal Jose Juan Matias Active [place] [facility] [EKG[facility] / Hospital R94.31(ICD-10) Repository 03/18/2018 Active Pain in right foot / NA Active [facility] M79.671(ICD-10) [facility] [place] Repository 03/18/2018 Active Abnormal levels of NA Active [facility] other serum enzymes / [facility] R74.8(ICD-10) [place] Repository 03/18/2018 Active Unspecified abdominal NA Active [facility] pain / R10.9(ICD-10) [facility] [place] Repository 09/20/2017 Active Encounter for NA Active [facility] screening mammogram [facility] for malignant neoplasm [place] of breast / Repository Z12.31(ICD-10) 09/20/2017 Active Unknown / UNK(Unknown) NA Active [facility] Repository PROCEDURES PROCEDURES No Procedure Records FoundRESULTS RESULTS PROGRESS Observed: 04/25/2018 Status: COMPLETED Source: [place] 10:03 AM [facility] REPOSITORY HNO ID: [id number] Author: James Jordan Service: (none) Author Type: Nurse Practitioner Type: Progress Notes Filed: 04/25/2018 10:04 AM Note Text: Orders filed. James Jordan APRN.CNP PROGRESS Observed: 04/25/2018 Status: COMPLETED Source: [place] 8:10 AM [facility] REPOSITORY HNO ID: [id number] Author: Amparo Martinez Service: (none) Author Type: Girls Tennis Coach Type: Progress Notes Filed: 04/25/2018 10:04 AM Note Text: POPULATION [facility]ALTH JEWELRY BENCH WORKER QUICKNOTE Provider Action/FYI: Please file lab. Patient replied to [facility] message and states she'll call in to make an appointment. Patient identified by name and . Gave patient my direct number to call back to make appointment. Amparo Martinez CMA PROGRESS Observed: 04/24/2018 Status: COMPLETED Source: [place] 9:07 AM [facility] REPOSITORY HNO ID: [id number] Author: Amparo Martinez Service: (none) Author Type: Girls Tennis Coach Type: Progress Notes Filed: 04/25/2018 10:04 AM Note Text: POPULATION HEALTH JEWELRY BENCH WORKER QUICKNOTE Provider Action/FYI: Patient identified by name and . [facility] message sent. Amparo Martinez CMA PROGRESS Observed: 04/24/2018 Status: COMPLETED Source: [place] 9:03 AM [facility] REPOSITORY HNO ID: [id number] Author: Amparo Martinez Service: (none) Author Type: Girls Tennis Coach Type: Progress Notes Filed: 04/25/2018 10:04 AM [...] CMA CNPTOUTREACH Observed: 04/24/2018 Status: COMPLETED Source: [place] 12:00 AM [facility] REPOSITORY Patient Outreach (INTMWS) GILMA MILLER ([id number]) 1970 F CHT Date Time Provider Department [...] ordered INFLUENZA(1) due on 12/07/2017 SCOTT Harrison, [facility] 04/25/2018 10:04 AM Signed [facility] ASSISTANT JUAN LUIS Provider Action/FYI: Patient identified by name and . [facility] message sent. SCOTT Harrison DYNAMIC BALANCER 04/25/2018 10:04 AM Signed [facility] JEWELRY BENCH WORKER JUAN LUIS Provider Action/FYI: Please file lab. Patient replied to [facility] message and states she'll call in to [...] Assessed Reason for Visit: PHMA/Care Gap Outreach [3132] Primary Visit Diagnosis:Screening, lipid [Z13.220] Order(s):LIPID PANEL BASIC [SQLIPB] Order #: [id number] FUTURE Prescriptions as of 04/24/2018 Sig: POLYETHYLENE [...] LEAD ELECTROCARDIOGRAM Observed: 03/24/2018 Status: F Source: [place] 7:55 AM [facility] REPOSITORY [facility] Cardiovascular Services [address] [place] [address]24 12 Lead EKG 03/19/18 1435 MR#: [id number] Acct: [id number] Name: GILMA MILLER Rep #: [id number] : 1970 47 From: Jose Juan Matias MD Attending Dr: Nita Gonzalez MD Status: DIS QUANG Ordering Dr: William Mcfarlane MD Date: 03/19/18 Location: [facility] Sex: F C Admitted: 03/18/18 Test Reason [...] Confirmed by JOSE JUAN MATIAS MD ([id number]), assistant production editor GILMA ALONZO ([id number]) on 03/24/2018 7:55:08 AM Referred By: Nita Gonzalez Confirmed By:JOSE JUAN MATIAS MD 03/24/18 0755 Date Jose Juan Matias MD CC: William Mcfarlane MD; Julita Bryant MD; Nita Gonzalez MD Signed 12 LEAD ELECTROCARDIOGRAM Observed: 03/21/2018 Status: F Source: [place] 10:46 AM [facility] Cardiovascular Services [address] [place] [address] 12 Lead EKG 03/17/182039 MR#: [id number] Acct: [id number] Name: GILMA MILLER Rep #: [id number] : 1970 47 From: Jose Juan Matias [...] Confirmed by JOSE JUAN MATIAS MD ([id number]), assistant production editor GILMA ALONZO ([id number]) on 03/21/2018 10:46:19 AM Referred By: Confirmed By:JOSE JUAN MATIAS MD 03/21/18 1046 Date Jose Juan Matias MD CC: MD Heidy Olivier; Julita Bryant MD Signed DISCHARGE INSTRUCTION Observed: 03/20/2018 Status: F Source: [place] 3:23 PM [facility] REPOSITORY [facility] Medical Records Department [address] [place] [address] Instructions for Home/Discharge Instructions 03/20/18 1237 MR#: [id number] Acct: [id number] Name: GILMA MILLER Rep #: [id number] : 1970 47 From: Nita Gonzalez MD [...] F Source: [place] NO DIFF 2:44 PM [facility] REPOSITORY TYPE CODE TESTS RESULT OUT [...] MPV 9.3 Performed By: #### L100.0500 #### [facility] [place], [address] CBC W/DIFF, AUTOMATED Collected: 03/20/2018 Status: F Source: [place] 5:50 AM [facility] REPOSITORY TYPE CODE TESTS RESULT OUT [...] Lymph 1.23 Performed By: #### L100.0100 #### [facility] [place], [address] COMPREHENSIVE METABOLIC Collected: 03/20/2018 Status: F Source: [place] [facility] 5:50 AM [facility] REPOSITORY TYPE CODE TESTS RESULT OUT [...] GAP 12 Performed By: #### L500.4050 #### [facility] [address] [facility] [place], [address] LIPASE Collected: 03/20/2018 Status: F Source: [place] 5:50 AM [facility] REPOSITORY TYPE CODE TESTS RESULT OUT OF REFERENCE UNITS RANGE LAB L501.2450 73-393 U/L High LIPASE 662 Performed By: #### L501.2450 #### [facility] [address] [facility] [place], [address] OPERATIVE REPORT - Observed: 03/19/2018 Status: F Source: [place] ENDOSCOPY 4:47 PM [facility] REPOSITORY [facility] Medical Records Department [address] [place] [address] Operative Report - Endoscopy MR#: [id number] Acct: [id number] Name: GILMA MILELR Rep #: [id number] : 1970 47 From: Alexandru Pierce MD [...] ongoing care. Procedure Code(s): --- Professional --- 54903, Endoscopic retrograde cholangiopancreatography (ERCP); with sphincterotomy/papillotomy Diagnosis Code(s): --- Professional --- R74.8, Abnormal levels of other serum enzymes CPT copyright 2017 [employer]. All rights reserved. The codes documented in this report are preliminary and upon front maker lockstitch review may be revised to meet current compliance requirements. Alexandru Pierce MD 03/19/2018 4:47:06 PM This report has been signed electronically. Number of Addenda: 0 Note Initiated On: 03/19/2018 4:02 PM 03/19/18 1647 Date [facility] Pierce [facility] Signature: Date (if indicated) CC: Julita Bryant MD; Nita Gonzalez MD Date Dictated: 03/19/18 1602 Date Transcribed: Recreation Establishment Manager: JONATHON Signed HISTORY AND PHYSICAL Observed: 03/19/2018 Status: F Source: [place] EXAM 1:04 PM [facility] REPOSITORY [facility] Medical Records Department [address] [place] [address] History and Physical 03/18/18 1950 MR#: [id number] Acct: [id number] Name: GILMA MILLER Rep #: [id number] : 1970 47 From: Nita Gonzalez MD PCP: Julita Bryant MD Status: ADM QUANG Y Location: [address] History of Present Illness Date of [...] a laparoscopic cholecystectomy [place] [address] Hurt. 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 Pager: [phone] [facility] [address] [place] [address], [facility] [address], [address] [place] [address] Office: [phone] Code Visit Inpatient E AND M: 11433 Init Hosp L2 03/19/18 1304 <Electronically signed by Nita Gonzalez MD> Date Nita Gonzalez MD Cosigner Signature: Date (if applicable) CC: Julita Bryant MD; Nita Gonzalez MD Signed ERCP BILIARY ONLY Observed: 03/19/2018 Status: F Source: [place] 8:19 AM [facility] REPOSITORY [facility] Imaging Services [address] [place] [address] 32038 ERCP Biliary Only MR#: [id number] Acct: [id number] Name: GILMA MILLER Rebecca Rep #: [id number] : 1970 F 47 From: Stanislav Bee DO PCP: Julita Bryant MD Status: ADM QUANG Study: ERCP Biliary Only Date of Exam: 03/19/18 Exam# [id number] Ordering Dr: Alexandru Pierce MD STUDY: ERCP [...] Stanislav Bee DO at 17:17 EST Tel [phone], Service support , CC: Alexandru Pierce MD; Julita Bryant MD Recreation Establishment Manager: Signed CBC W/DIFF, AUTOMATED Collected: 03/19/2018 Status: F Source: [place] 6:00 AM [facility] REPOSITORY TYPE CODE TESTS RESULT OUT [...] Lymph 1.16 Performed By: #### L100.0100 #### [facility] [address] [place], [place], [address] BASIC METABOLIC Collected: 03/19/2018 Status: F Source: [place] PROFILE (BMP) 6:00 AM [facility] REPOSITORY TYPE CODE TESTS RESULT OUT [...] Performed By: #### L500.2500, L500.3400, L501.2450 #### [facility] [address] [place], [place], [id number] LIVER PROFILE Collected: 03/19/2018 Status: F Source: [place] 6:00 AM [facility] REPOSITORY TYPE CODE TESTS RESULT OUT [...] Performed By: #### L500.2500, L500.3400, L501.2450 #### [facility] [address] [place], [place], [address] LIPASE Collected: 03/19/2018 Status: F Source: [place] 6:00 AM [facility] REPOSITORY TYPE CODE TESTS RESULT OUT OF REFERENCE UNITS RANGE LAB L501.2450 73-393 U/L High LIPASE 93785 Performed By: #### L500.2500, L500.3400, L501.2450 #### [facility] [address] [place], [address] EMERGENCY DEPARTMENT Observed: 03/19/2018 Status: F Source: [place] SUMMARY 12:35 AM [facility] REPOSITORY [facility] Medical Records Department [address] [place] [address] Emergency Department Summary 03/18/18 1639 MR#: [id number] Acct: [id number] Name: GILMA MILLER Rep #: [id number] : 1970 47 From: Bryant Alvarado MD [...] Gallstone pancreatitis This note was generated with Attensa dictation software. It may contain incorrect words, [...] your Primary Care Provider. Call [facility] ([phone]) or report to the closest Emergency Room. Call 911 if necessary. 03/19/18 0035 <Electronically signed by Bryant Alvarado MD> Date Bryant Alvarado MD Cosigner Signature (If Indicated): Date CC: Julita Bryant MD CBC W/DIFF, AUTOMATED Collected: 03/18/2018 Status: C Source: [place] 4:10 PM [facility] REPOSITORY TYPE CODE TESTS RESULT OUT [...] 03/19/18 1439 PATH REV previously reported as: Yuyd donaldson Performed By: #### L100.0100 #### [facility] [place], [address] BASIC METABOLIC Collected: 03/18/2018 Status: F Source: [place] PROFILE (BMP) 4:10 PM [facility] REPOSITORY TYPE CODE TESTS RESULT OUT [...] Performed By: #### L500.2500, L500.3400, L501.2450 #### [facility] [address] [place], [place], [address] LIVER PROFILE Collected: 03/18/2018 Status: F Source: [place] 4:10 PM [facility] REPOSITORY TYPE CODE TESTS RESULT OUT [...] Performed By: #### L500.2500, L500.3400, L501.2450 #### [facility] [address] [place], [place], [address] LIPASE Collected: 03/18/2018 Status: F Source: [place] 4:10 PM [facility] REPOSITORY TYPE CODE TESTS RESULT OUT OF REFERENCE UNITS RANGE LAB L501.2450 73-393 U/L High LIPASE 07673 Performed By: #### L500.2500, L500.3400, L501.2450 #### [facility] [address] [place], [place], [address] HEPATITIS PANEL ACUTE Collected: 03/18/2018 Status: F Source: [place] 4:10 PM [facility] REPOSITORY TYPE CODE TESTS RESULT OUT OF RANGE REFERENCE UNITS LAB L3100.0200 Negative Normal HEP A Negative IgM 6734 LAB L3100.0400 Negative Normal HB Negative SURF AG LAB L3100.0440 Negative Normal HB Negative CORE [id number] LAB L3100.0650 0.0-0.9 s/co ratio Normal HEP C <0.1 AB Result Comment: Negative: < 0.8 Indeterminate: 0.8 - 0.9 Positive: > 0.9 The CDC recommends that a positive HCV antibody result be followed up with a HCV Nucleic Acid Amplification test (321497). Performed at: - [facility] [address] [id number] Membership Sales Manager: Mil Waggoner PhD, Phone: [phone] Performed By: #### L3000.0375 #### [facility] (refer to report for specific site) refer to report for address and phone number URINALYSIS WITH Collected: 03/18/2018 Status: F [facility] REPOSIT[facility] TYPE CODE TESTS RESULT OUT OF RANGE REFERENCE UNITS LAB [facility] Yellow Abnormal Color Amanda Alert LAB [facility] Clear Abnormal Clarity Cloudy Alert LAB UGLUC Negative mg/dL Glucose, Negative Urine LAB UBIL Negative 1+ Abnormal Bilirubin, Alert Urine Result Comment: Suggest correlation with clinical findings and serum bilirubin if clinically indicated. LAB UK[facility] Negative Abnormal Ketones, Urine 1+ Alert LAB [facility] 1.005-1.030 Specific [place], Ur 1.018 LAB UHGB Negative Hemoglobin/Blood,U Negative [...] Epithelial Cells Performed By: #### UAWMIC #### [facility] [address] [address] Observed: 03/18/2018 Status: F Source: [place] URINE CULTURE 10:49 AM [facility] REPOSITORY Sp. Request/Comment: - Specimen received in preservative Culture Result - <10,000 CFU/ml Normal urogenital mj Performed By: #### URCUL #### [facility] [address] [address] C-REACTIVE PROTEIN Collected: 03/18/2018 Status: F Source: [place] 10:47 AM [facility] REPOSITORY TYPE CODE TESTS RESULT OUT OF REFERENCE UNITS RANGE LAB CRP <0.9 mg/dL High C-Reactive 1.4 Protein Performed By: #### CRP, GGT, URIC, HREMOP, AHAVT, WSR #### [facility] [address] [place] [address] GGT Collected: 03/18/2018 Status: F Source: [place] 10:47 AM [facility] REPOSITORY TYPE CODE TESTS RESULT OUT OF RANGE REFERENCE UNITS LAB GGT 6-46 U/L High GGT 246 Performed By: #### CRP, GGT, URIC, HREMOP, AHAVT, WSR #### [place] [address] URIC ACID Collected: 03/18/2018 Status: F Source: [place] 10:47 AM [facility] REPOSITORY TYPE CODE TESTS RESULT OUT OF RANGE REFERENCE UNITS LAB URIC 2.5-6.6 mg/dL Uric Acid 4.6 Performed By: #### CRP, GGT, URIC, HREMOP, AHAVT, WSR #### [place] [address] HEPATITIS REMOTE PANEL Collected: 03/18/2018 Status: F Source: [place] 10:47 AM [facility] REPOSITORY TYPE CODE TESTS RESULT OUT OF REFERENCE UNITS RANGE LAB AHBCOT Negative Hep B Core Ab,Total Negative LAB AHCV Negative Hepatitis C Ab Negative IA LAB HBSAGR Negative HBsAg Negative LAB AHBSAG Negative HepB Surface Ab,Qual Negative Result Comment: NEGATIVE Performed By: #### CRP, GGT, URIC, HREMOP, AHAVT, WSR #### [place] [address] HEPATITIS A AB TOTAL Collected: 03/18/2018 Status: F Source: [place] 10:47 AM [facility] REPOSITORY TYPE CODE TESTS RESULT OUT OF REFERENCE UNITS RANGE LAB AHAVT Negative Hepatitis A Ab Negative Total Performed By: #### CRP, GGT, URIC, HREMOP, AHAVT, WSR #### [place] [address] SED RATE WESTERGREN Collected: 03/18/2018 Status: F Source: [place] 10:47 AM [facility] REPOSITORY TYPE CODE TESTS RESULT OUT OF REFERENCE UNITS RANGE LAB WSR 0-20 mm/hr Sed Rate Westergren 9 Performed By: #### CRP, GGT, URIC, HREMOP, AHAVT, WSR #### [place] [address] PROGRESS Observed: 03/18/2018 Status: COMPLETED Source: [place] 10:00 AM [facility] REPOSITORY HNO ID: [id number] Author: James ArtNellie Jordan Service: (none) Author Type: Nurse Practitioner Type: Progress Notes Filed: 03/18/2018 3:45 PM Note Text: CC: Patient presents with: Abdominal Pain: Trouble breathing, pain with inhaling, vomitting,back pain, indigestion x 1 week HPI Gilma Miller is a 47 year old female who presents today for ongoing abdominal pain x1 week. Patient was evaluated at [facility] ER 02/15/18 for complaints of abdominal pain [...] QD - Labs of Urine analysis - [place] low residue diet - Treatment for constipation [...] plan. CNOV Observed: 03/18/2018 Status: COMPLETED Source: [place] 10:00 AM [facility] REPOSITORY Office Visit (INTMWS) GILMA MILLER ([id number]) 1970 F T Date Time Provider Department 03/18/18 10:00 AM JAMES JORDAN ([facility]) INTMWS During your visit today, we [...] pain x1 week. Patient was evaluated at [facility] ER 02/15/18 for complaints of abdominal pain [...] QD - Labs of Urine analysis - [place] low residue diet - Treatment for constipation [...] RELEASE - BASIC METABOLIC PNL James Jordan APRN.OUTREACH WORKER Prescription instructions reviewed with patient as applicable. [...] Order(s):HEP REMOTE PANEL BL [SQHREMOP] Order #: [id number] FUTURE HEP A AB TOTAL [SQAHAVT] Order #: [id number] FUTURE GGT BLD [SQGGT] Order #: [id number] FUTURE polyethylene glycol 3350 (MIRALAX, GLYCOLAX) 17 gram/dose powderTake 17 g by mouth twice daily. Drink a mix of 1 scoop in 8oz of water/beverage once daily as needed for constipation.Disp: 1 BottleRfl: 0 URINALYSIS WITH MICROSCOPIC [SQUAWMIC] Order #: [id number]. #:[id number] URINE CULTURE [SQURCUL] Order #: [id number] FUTURE amLODIPine (NORVASC) 5 mg tabletTake 1 [...] 0 BASIC METABOLIC PNL [SQBMP] Order #: [id number] FUTURE Prescriptions as of 03/18/2018 Sig: AMLODIPINE [...] EMERGENCY DEPARTMENT Observed: 03/17/2018 Status: F Source: [place] SUMMARY 11:00 PM [facility] REPOSITORY [facility] Medical Records Department [address] [place] [address] Emergency Department Summary 03/17/182031 MR#: [id number] Acct: [id number] Name: GILMA MILLER Rep #: [id number] : 1970 47 From: Reena Olivier MD [...] urinary habits she denies any history of CO PE DVT or any GI elements Physical [...] etiology unclear This note was generated with Sales Layeration software. It may contain incorrect words, spelling, [...] problems, contact your Primary Care Provider. Call [facility] ([phone]) or report to the closest Emergency Room. Call 911 if necessary. 03/17/18 2300 <Electronically signed by Reena Olivier MD> Date Reena Olivier MD Cosigner Signature (If Indicated): Date CC: Julita Bryant MD DISCHARGE INSTRUCTION Observed: 03/17/2018 Status: F Source: [place] 9:25 PM [facility] REPOSITORY [facility] Medical Records Department [address] [place] [address] Discharge Instruction 03/17/185 MR#: [id number] Acct: [id number] Name: GILMA MILLER Rep #: [id number] : 1970 47 From: Reena Olivier MD [...] your Primary Care Provider. Call [facility] ([phone]) or report to the closest Emergency Room. Call 911 if necessary. 03/17/182124 <Electronically signed by Reena Olivier MD> Date Reena Olivier MD Cosigner Signature (If Indicated): Date CC: Julita Bryant MD URINALYSIS, COMPLETE Collected: 03/17/2018 Status: F Source: [place] 8:40 PM [facility] REPOSITORY Order Comment: How was Urine Obtained? [...] URINE 1+ Performed By: #### L400.0001 #### [facility] [address] [place], [address] CBC W/DIFF, AUTOMATED Collected: 03/17/2018 Status: F Source: [place] 8:33 PM [facility] REPOSITORY TYPE CODE TESTS RESULT OUT [...] Lymph 1.32 Performed By: #### L100.0100 #### [facility] [address] [place], [place], [address] BASIC METABOLIC Collected: 03/17/2018 Status: F Source: [place] PROFILE (BMP) 8:33 PM [facility] REPOSITORY TYPE CODE TESTS RESULT OUT [...] By: #### L500.2500, L500.3400, L501.2450, L501.4010 #### [facility] [address] [place], [address] LIVER PROFILE Collected: 03/17/2018 Status: F Source: [place] 8:33 PM [facility] REPOSITORY TYPE CODE TESTS RESULT OUT [...] By: #### L500.2500, L500.3400, L501.2450, L501.4010 #### [facility] [address] [place], [address] LIPASE Collected: 03/17/2018 Status: F Source: WALKER 8:33 PM [facility] REPOSITORY TYPE CODE TESTS RESULT OUT OF RANGE REFERENCE UNITS LAB L501.2450 73-393 U/L Normal LIPASE 182 Performed By: #### L500.2500, L500.3400, L501.2450, L501.4010 #### [facility] [address] [place], [address] TROPONIN-I Collected: 03/17/2018 Status: F Source: [place] 8:33 PM [facility] REPOSITORY TYPE CODE TESTS RESULT OUT OF RANGE REFERENCE UNITS LAB L501.4010 <0.045 ng/mL Normal < 0.015 TROPONIN-I Result Comment: TROPONIN-I EXPECTED VALUES <0.045 Negative 0.045 - 0.590 Consistent with Cardiac Damage > OR = 0.600 Critical Value Not every elevated troponin is indicative of CO. These values should be used with clinical judgement in examining the patient's clinical picture for diagnosis. To establish a diagnosis of CO versus myocardial injury, there must be a demonstrated rise and/or fall in the troponin values, in addition to ischemic symptoms, EKG changes, new regional wall motion abnormality, and/or angiographical evidence. PLEASE NOTE: REFERENCE RANGES EDITED 17 Performed By: #### L500.2500, L500.3400, L501.2450, L501.4010 #### [facility] [address] [place], [address] ABDOMEN/PELVIS WITHOUT Observed: 03/17/2018 Status: F Source: [facility] 8:22 PM [facility] REPOSITORY [facility] Imaging Services [address] [place] [address] Abdomen/Pelvis without Cont MR#: [id number] Acct: [id number] Name: GILMA MILLER Rep #: [id number] : 1970 F 47 From: Leah Willson MD PCP: Julita Bryant MD Status: REG ER Study: Abdomen/Pelvis without Cont Date of Exam: 03/17/18 Exam# [id number] Ordering Dr: Reena Olivier MD STUDY: CT [...] CC: MD Heidy Olivier; Julita Bryant MD Recreation Establishment Manager: Signed 12 LEAD ELECTROCARDIOGRAM Observed: 03/17/2018 Status: F Source: [place]ORIAN 2:52 PM [facility] REPOSITORY [facility] Cardiovascular Services [address] [place] [address] 12 Lead EKG 03/14/18 0134 MR#: [id number] Acct: [id number] Name: FELICITAS MILLERBLAINE Fernandez Rep #: [id number] : 1970 47 From: Jose Juan Matias [...] Confirmed by MARLENI MCKEE, JOSE JUAN ([id number]), assistant production editor GILMA ALONZO ([id number]) on 03/17/2018 2:51:58 PM Referred By: CRISPIN Confirmed By:JOSE JUAN MATIAS MD 03/17/18 1452 Date Jose Juan Matias MD CC: Julita Bryant MD; Cassie Celis MD Signed 12 LEAD ELECTROCARDIOGRAM Observed: 03/17/2018 Status: F Source: D[place]IAN 2:52 PM [facility] REPOSITORY [facility] Cardiovascular Services [address] [place] [address] 12 Lead EKG 03/14/18 0435 MR#: [id number] Acct: [id number] Name: RADHAGILMA Rep #: [id number] : 1970 47 From: Jose Juan Matias [...] Confirmed by JOSE JUAN MATIAS MD ([id number]), assistant production editor GILMA ALONZO ([id number]) on 03/17/2018 2:52:17 PM Referred By: CRISPIN Confirmed By:JOSE JUAN MATIAS MD 03/17/18 1452 Date Jose Juan Matias MD CC: Julita Bryant MD; Cassie Celis MD Signed EMERGENCY DEPARTMENT Observed: 03/14/2018 Status: F Source: [place]ALK[place] SUMMARY 5:59 AM [facility] REPOSITORY [facility] Medical Records Department [address] [place] [address] Emergency Department Summary 03/14/18 0131 MR#: [id number] Acct: [id number] Name: RADHAGILMA C Rep #: [id number] : 1970 47 From: Cassie Celis MD [...] pain, indigestion This note was generated with Attensa dictation software. It may contain incorrect words, [...] problems, contact your Primary Care Provider. Call [facility] ([phone]) or report to the closest Emergency Room. Call 911 if necessary. 03/14/18 0559 <Electronically signed by Cassie Celis MD> Date Cassie Celis MD Cosigner Signature (If Indicated): Date CC: Julita Bryant MD DISCHARGE INSTRUCTION Observed: 03/14/2018 Status: F Source: DORIAN 5:59 AM [facility] REPOSITORY [facility] Medical Records Department [address] [place] [address] Discharge Instruction 03/14/18 0506 MR#: [id number] Acct: [id number] Name: GILMA MILLER Rep #: [id number] : 1970 47 From: Cassie Celis MD [...] your Primary Care Provider. Call [facility] ([phone]) or report to the closest Emergency Room. Call 911 if necessary. 03/14/18 0559 <Electronically signed by Cassie Celis MD> Date Cassie Celis MD Cosigner Signature (If Indicated): Date CC: Julita Bryant MD TROPONIN-I Collected: 03/14/2018 Status: F Source: [place] 4:31 AM [facility] REPOSITORY Order Comment: 'TROP' Serial specimen #1, #2 or #3: 2 Comments: this is a TIMED REPEAT troponin (04:30) TYPE CODE TESTS RESULT OUT OF RANGE REFERENCE UNITS LAB L501.4010 <0.045 ng/mL Normal < 0.015 TROPONIN-I Result Comment: TROPONIN-I EXPECTED VALUES <0.045 Negative 0.045 - 0.590 Consistent with Cardiac Damage > OR = 0.600 Critical Value Not every elevated troponin is indicative of CO. These values should be used with clinical judgement in examining the patient's clinical picture for diagnosis. To establish a diagnosis of CO versus myocardial injury, there must be a demonstrated rise and/or fall in the troponin values, in addition to ischemic symptoms, EKG changes, new regional wall motion abnormality, and/or angiographical evidence. PLEASE NOTE: REFERENCE RANGES EDITED 17 Performed By: #### L501.4010 #### [facility] [place], [address] CBC W/DIFF, AUTOMATED Collected: 03/14/2018 Status: F Source: [place] 1:35 AM [facility] REPOSITORY TYPE CODE TESTS RESULT OUT [...] Lymph 1.73 Performed By: #### L100.0100 #### [facility] [address] [place], [address] COMPREHENSIVE METABOLIC Collected: 03/14/2018 Status: F Source: [facility] 1:35 AM [facility] REPOSITORY TYPE CODE TESTS RESULT OUT [...] Performed By: #### L500.4050, L501.2450, L501.4010 #### [facility] [address] [facility] [place], [place], [address] LIPASE Collected: 03/14/2018 Status: F Source: [place] 1:35 AM [facility] REPOSITORY TYPE CODE TESTS RESULT OUT OF RANGE REFERENCE UNITS LAB L501.2450 73-393 U/L Normal LIPASE 181 Performed By: #### L500.4050, L501.2450, L501.4010 #### [facility] [address] [facility] [place], [place], [address] TROPONIN-I Collected: 03/14/2018 Status: F Source: [place] 1:35 [facility] REPOSITORY TYPE CODE TESTS RESULT OUT OF RANGE REFERENCE UNITS LAB L501.4010 <0.045 ng/mL Normal < 0.015 TROPONIN-I Result Comment: TROPONIN-I EXPECTED VALUES <0.045 Negative 0.045 - 0.590 Consistent with Cardiac Damage > OR = 0.600 Critical Value Not every elevated troponin is indicative of CO. These values should be used with clinical judgement in examining the patient's clinical picture for diagnosis. To establish a diagnosis of CO versus myocardial injury, there must be a demonstrated rise and/or fall in the troponin values, in addition to ischemic symptoms, EKG changes, new regional wall motion abnormality, and/or angiographical evidence. PLEASE NOTE: REFERENCE RANGES EDITED 17 Performed By: #### L500.4050, L501.2450, L501.4010 #### [facility] [address] [place], [address] ,SERUM,HCG QUALI. Collected: Status: F Source: WALKER 03/14/2018 1:35 AM [facility] REPOSITORY TYPE CODE TESTS RESULT OUT OF REFERENCE UNITS RANGE LAB L700.6700 =>Qualitative mIU/mL Normal HCG Qual < 1 triggr LAB L700.7000 0-9 Nonpreg Negative Normal HCGSQUAL NEGATIVE Performed By: #### L700.6800 #### [facility] [address] [place], [address] ACUTE ABDOMEN INC Observed: 03/14/2018 Status: F Source: [place] CHEST 1:29 AM [facility] REPOSITORY [facility] Imaging Services [address] [place] [address] Acute Abdomen Inc Chest MR#: [id number] Acct: [id number] Name: GILMA MILLER Rep #: [id number] : 1970 F 47 From: Nazario Amos MD PCP: Julita Bryant MD Status: REG ER Study: Acute Abdomen Inc Chest Date of Exam: 03/14/18 Exam# [id number] Ordering Dr: Cassie Celis MD STUDY: X-RAY [...] CC: Julita Bryant MD; Cassie Celis MD Recreation Establishment Manager: Signed EMERGENCY DEPARTMENT Observed: 02/22/2018 Status: F Source: WALK[place] SUMMARY 6:37 PM [facility] REPOSITORY [facility] Medical Records Department [address] [place] [address] Emergency Department Summary 02/22/18 1833 MR#: [id number] Acct: [id number] Name: GILMA MILLER Rep #: [id number] : 1970 47 From: Hamlet Brown PCP: [...] muscle strain This note was generated with Attensa dictation software. It may contain incorrect words, [...] your Primary Care Provider. Call [facility] ([phone]) or report to the closest Emergency Room. Call 911 if necessary. 02/22/18 1837 <Electronically signed by Hamlet Brown> Date Hamlet Brown Cosigner Signature (If Indicated): Date CC: Julita Bryant MD PROGRESS Observed: 12/31/2017 Status: COMPLETED Source: BINGEN 8:39 PM [facility] REPOSITORY HNO ID: [id number] Author: Natividad (Jarivs) Anastacia Service: (none) Author Type: Nurse Practitioner Type: Progress Notes Filed: 12/31/2017 8:47 PM Note Text: Subjective The history is provided by the patient and a relative. No layout artist was used. 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 No layout artist was used. 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 Natividad Betancur, CARA.OUTREACH WORKER Referring Provider: SELF [200] Allergies As of Date: 12/31/2017 Noted Allergy Reaction MOBIC (MELOXICAM) 10/24/2009 4 - Hives NAPROXEN 10/24/2009 8 - GI Upset PREDNISONE 11/07/2009 4 - Hives 12 - Shortness of Breath TYLENOL #3 (CODEINE) 10/24/2009 4 - Hives VICODIN (HYDROCODONE-ACETAMINOPHE*09/27/2014 8 - GI Upset Comments: Nausea Date Reviewed: 12/31/2017 Reviewed by: Natividad (Vp Informatics) Anastacia - Fully Assessed Reason for Visit: [...] Text Natividad Betancur APRN.CNP Urgent Care [address] [id number] Dept: [phone] 12/31/2017 Gilma Miller [address] [address] To Whom it May Concern: This is to certify that Gilma Miller was seen at our office for medical care. Gilma may return to work on 01.01.2018. If you have any questions please feel free to call. Sincerely: Natividad Betancur APRN.CNP Encounter Status:Closed by NATIVIDAD BETANCUR CNP on 12/31/17 EMERGENCY DEPARTMENT Observed: 11/24/2017 Status: F Source: [facility] SUMMARY 8:04 AM [facility] Medical Records Department [address] [place] [address] Emergency Department Summary 11/23/17 1316 MR#: [id number] Acct: [id number] Name: GILMA MILLER Rep #: [id number] : 1970 47 From: Patrice Sanders DO [...] 2. Headache This note was generated with Attensa dictation software. It may contain incorrect words, [...] your Primary Care Provider. Call [facility] ([phone]) or report to the closest Emergency Room. Call 911 if necessary. 11/24/17 0804 <Electronically signed by Patrice Sanders DO> Date Patrice Sanders DO Cosigner Signature (If Indicated): Date CC: Julita Bryant MD PROGRESS Observed: 11/05/2017 Status: COMPLETED Source: [facility] 1:02 PM [facility] REPOSITORY HNO ID: [id number] Author: Stephanie (Jarvis) Podlogar Service: (none) Author Type: Nurse Practitioner Type: Progress Notes Filed: 11/05/2017 1:50 PM Note Text: 11/05/2017 Patient presents with: ER F/U SUBJECTIVE: This is a 47 year old that is here today for Above Complaints. 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 Patient advised if symptoms do not improve or if symptoms worsen sooner, to contact their primary care physician. Potential red flag symptoms discussed with the patient. Reviewed appropriate action plan to take if red flag symptoms occur. Patient agreeable to treatment plan. CNOV Observed: 11/05/2017 Status: COMPLETED Source: [place] 1:00 PM [facility]ITORY [facility] ([id number]) 1970 F [facility] Date Time Provider Department [...] here today for Above Complaints. 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 Patient advised if symptoms do not improve or if symptoms worsen sooner, to contact their primary care physician. Potential red flag symptoms discussed with the patient. Reviewed appropriate action plan to take if red flag symptoms occur. Patient agreeable to treatment plan. Stephanie Podlogar, AIR SEALING TECHNICIAN.JARVIS 11/05/2017 1:15 PM Signed Use ibuprofen 600 [...] [M79.671] Order(s):URIC ACID BLOOD [SQURIC] Order #: [id number] FUTURE SED RATE WESTERGREN [SQWSR] Order #: [id number] FUTURE C-REACTIVE PROTEIN (CRP) [SQCRP] Order #: [id number] FUTURE COMPOUNDED PRESCRIPTIONBlood pressure cuff ICD Code: X41Aira: 1 DeviceRfl: 0 Prescriptions as of 11/05/2017 [...] MINIMUM 3 Observed: 11/03/2017 Status: F Source: [facility] VIEWS RIGHT 10:52 AM [facility] REPOSITORY ORIGINAL [...] AM CNCO Observed: 09/20/2017 Status: COMPLETED Source: [facility] 2:51 PM [facility] REPOSITORY HNO ID: [id number] Author: Mammography Coordinator Service: (none) Author Type: Physician Type: Letter Filed: 09/23/2017 11:33 PM Note Text: September 20, 2017 PID: [id number] Gilma Miller [address] [address] Dear Ms. Miller, We are pleased to [...] report will be kept on file at [facility] as part of your permanent medical record and are available for your continuing care. Thank you for allowing us to help in meeting your health care needs. Sincerely, Dr. Nelson Interpreting Radiologist [facility] (Normal over 40) [facility] SCREENING Observed: 09/20/2017 Status: F Source: [place] 1:54 PM [facility] REPOSITORY * * *Final Report* * * DATE OF EXAM: Sep 20 2017 1:54PM [facility] 0581 - [facility] SCREENING / PROCEDURE REASON: Encounter for screening mammogram for malignant neoplasm of breast * * * * Physician Interpretation * * * * RESULT: #[id number] - [facility] SCREENING BILATERAL DIGITAL SCREENING MAMMOGRAM WITH CAD: 09/20/2017 HISTORY: Screening Mammogram - patient reports NO breast symptoms /priors available for comparison. RESULT: TECHNIQUE: The study was acquired using full field digital technology and interpreted from soft copy. Current study was also evaluated with a Computer Aided Detection (CAD). Comparison is made to exams dated: 01/02/2016 mammogram, 09/22/2014 mammogram - [facility], and 01/26/2010 mammogram. There are scattered fibroglandular elements in both breasts. No significant masses, calcifications, or other findings are seen in either breast. There has been no significant interval change. IMPRESSION: NEGATIVE There is no mammographic evidence of malignancy.A 1 year screening mammogram is recommended. Maria Ines Nelson M.D. pt/ximena:09/20/2017 14:51:50 Burial Needs Salesperson: Janine Vidal RT(Jf)(Horacio), [facility] letter sent: Normal over 40 Mammogram BI-RADS: 1 Negative Recreation Establishment Manager: Ximena Transcribe Date/Time: Sep 20 2017 1:34P Dictated by: MARIA INES NELSON MD This examination was interpreted and the report reviewed and electronically signed by: MARIA INES NELSON MD on Sep 20 2017 2:51PM EST [id number] PROGRESS Observed: 09/20/2017 Status: COMPLETED Source: [place] 1:26 PM [facility] [place] [facility] REPOSITORY HNO ID: [id number] Author: Christi Mishra Service: (none) Author Type: [...] APRN.JARVIS CNOV Observed: 09/20/2017 Status: COMPLETED Source: [place] 12:45 PM [facility] REPOSITORY Office Visit (WSTR) GILMA MILLER ([id number]) 1970 F [facility] Date Time Provider Department [...] Patient agreeable to treatment plan. Christi Mishra APRN.OUTREACH WORKER Referring Provider: SELF [200] Allergies As of [...] 09/20/17 PROGRESS Observed: 09/03/2017 Status: COMPLETED Source: [place] 1:09 PM [facility] REPOSITORY HNO ID: [id number] Author: James Jordan Service: (none) Author Type: [...] APRN.CNP CNOV Observed: 09/03/2017 Status: COMPLETED Source: [place] 1:00 PM [facility] REPOSITORY Office Visit ([facility]) GIMLA MILLER ([id number]) 1970 F [facility] Date Time Provider Department 09/03/17 1:00 PM [...] activity was identified.- 09/03/2017 by James Jordan APRN.OUTREACH WORKER James Jordan APRN.OUTREACH WORKER Referring Provider: SELF [200] Allergies As of [...] XR SHOULDER LIMITED 2V AP/TRUE AP LT [7494187] Order #: [id number] FUTURE CONSULT TO ORTHOPAEDICS [9055] Order #: [id number]: 1 Prescriptions as of 09/03/2017 Sig: WHITE [...] 09/03/17 PROGRESS Observed: 08/23/2017 Status: COMPLETED Source: [place] 9:52 AM [facility] [place] REPOSITORY HNO ID: [id number] Author: Aliyah Hinojosa) Aruna Service: (none) Author [...] children: 3 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 [employer] Social History Main Topics Smoking [...] MD CNOV Observed: 08/23/2017 Status: COMPLETED Source: [place] 9:40 AM [facility] REPOSITORY [facility] ([id number]) 1970 F [facility] Date Time Provider Department 08/23/17 9:40 AM ALIYAH VALDOVINOS) FAMPWS During your visit today, we recorded the following information about you: Pulse Respiration Blood pressure Weight 88/minute 16/minute 168/112 82.6 kg Aliyah Valdovinos MD 08/23/2017 10:14 AM Signed Chief Complaint [...] children: 3 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 Vomiting/diarrhea. This note was generated with Attensa dictation software. It may contain incorrect words, [...] problems, contact your Primary Care Provider. Call [facility] ([phone]) or report to the closest Emergency Room. Call 911 if necessary. 07/09/17 1738 <Electronically signed by Andrzej Allison MD> Date Andrzej Allison MD Cosigner Signature (If Indicated): Date CC: Julita Bryant MD ALLERGIES ALLERGIES DATE TYPE / CODE NAME / CODE REACTION SEVERITY SOURCE 03/18/2018 Drug hydrocodone Nausea Unknown [place] Allergy/416 bitartrate/S731646 Community 122725([place] [address](RXNORM) [facility] ED CT) Repository 03/18/2018 Drug morphine/[id number] Chest tightness Unknown [place] Allergy/416 5(RXNORM) Community 903422([email or web address] ED CT) Repository 03/18/2018 Drug codeine/[id number] Vomiting Unknown [place] Allergy/416 (RXNORM) Community 097753([email or web address] ED CT) Repository 03/18/2018 Drug acetaminophen/F006 Nausea Unknown [place] Allergy/416 726945(RXNORM) [facility] 188092([email or web address] ED CT) Repository 03/18/2018 Drug naproxen/J22880278 Hives Unknown [place] Allergy/416 0(RXNORM) Community 979408([email or web address] ED CT) Repository 03/18/2018 Drug meloxicam/N2442938 Hives Unknown [place] Allergy/416 72(RXNORM) Community 427994([email or web address] ED CT) Repository 09/27/2014 DRUG/860818 HYDROCODONE-ACETAM GI UPSET [facility] 003(SNOMED INOPHEN [address] [place] [address]) Repository 11/07/2009 DRUG PREDNISONE HIVES [facility] INGREDI/419 [place] 845199([facility] Repository ED CT) 10/24/2009 DRUG MELOXICAM HIVES [facility] INGREDI/419 [address] [place] 544581([facility] Repository ED CT) 10/24/2009 DRUG NAPROXEN GI UPSET [facility] INGREDI/419 [address] [place] 534786(SNOM Repository ED CT) 10/24/2009 DRUG CODEINE HIVES [address] 892297(SNOM Repository ED CT) ENCOUNTERS ENCOUNTERS ADMIT/DISCHARGE ACCOUNT NUMBER ADMITTING ENCOUNTER LOCATION SOURCE CLASS 03/19/2018 [id number] Ambulatory BMSBuilding: [place] [facility] Repository 03/18/2018 [id number] [facility], Ambulatory BMSBuilding: [place] Nita BMS.[facility] Repository 03/18/2018/03/20/20 [id number] [facility], Ambulatory [address] ding:[id number] Repository : BC090Crt: 1 03/18/2018 [id number] [facility] Ambulatory BMSBuilding: [place] Nita BMS..[facility] Repository 03/18/2018 [id number] [facility], Ambulatory BMSBuilding: [place] BMS.[facility] Repository 03/18/2018/03/18/20 [id number] Ambulatory [address] Repository 03/18/2018/03/19/20 [id number] Ambulatory [address] Repository 03/17/2018/03/17/20 [id number] Emergency [address] ding:ED Repository 03/14/2018/03/14/20 [id number] Emergency [address] ding:ED Repository 02/22/2018/02/23/20 [id number] Emergency [address] ding:ED Repository 12/31/2017/01/02/20 [id number] Ambulatory [address] Repository 11/23/2017/11/24/19 [id number] Emergency [address] ding:ED Repository 11/05/2017/11/07/19 [id number] Ambulatory [address] Repository 11/03/2017/11/04/19 [id number] Emergency BBuilding:FRANCINE Mishra [address] [place] [address] Repository 09/20/2017/09/21/19 [id number] Ambulatory [address] Repository 09/20/2017/09/24/19 [id number] Ambulatory [address] Repository 09/03/2017/09/05/19 [id number] Ambulatory [address] Repository 08/23/2017/08/27/19 [id number] Ambulatory [address] Repository 07/09/2017/07/10/19 [id number] Emergency [place] [address] ding:ED Repository PAYERS PAYERS ENCOUNTER GUARANTOR PAYER SUBSCRIBER SOURCE 03/19/2018 GILMA Fernandez Primary GILMA Fernandez [place] [id number] Insurance:CARESOURCEP RADHADOB: [facility] ABBIE tan [place]: [id number] [id number] Repository [address]Isn: (330) Date:2018-03-18 O [phone] () [address]ATTN: [place] [address]KR: 03/19/2018 Secondary NOT GIVENUNK [place] Insurance:SELF PAY [facility] Number: Effective Repository Date:2018-03-19 03/18/2018 GILMA Fernandez Primary GILMA Fernandez [place] [id number] Insurance:CARESOURCEP RADHADOB: [facility] ABBIE tan Number: [id number], [place] [id number] Repository [address]Vsf: (330) Date:2018-03-18 O [phone] () [address]ATTN: [place] [address]TM: 03/18/2018 Secondary NOT GIVENUNK [place] Insurance:SELF PAY [facility] Number: Effective Repository Date:2018-03-18 03/18/2018 GILMA Fernandez Primary GILMA Fernandez Dorian [id number] Insurance:CARESOURCEP MICHELEB: [facility] ABBIE tan Number: [id number], [place] [id number] Repository [address]Lzp: ([phone]) Date:2018-03-18P O [phone] () [address] [address]DC: 03/18/2018 Secondary NOT GIVENUNK [place] Insurance:SELF PAY [facility] Number: Effective Repository Date:2018-03-18 03/18/2018 GILMA Fernandez Primary GIMLA Rebecca [id number] Insurance:CARESOURCEP RADHADOB: [facility] ABBIE tan Number: [id number], [place] [id number] Repository [address]Kmw: ([phone]) Date:2018-03-18P O [phone] () [address]ATTN: [place] [address]AV: 03/18/2018 Secondary NOT GIVENUNK [place] Insurance:SELF PAY [facility] Number: Effective Repository Date:2018-03-18 03/18/2018 GILMA Fernandez Primary GILMA Fernandez [place] [id number] Insurance:CARESOURCEP RADHADOB: [facility] ABBIE tan Number: [id number], [place] [id number] Repository [address]Htp: ([phone]) Date:2018-03-18P O [phone] () [address]ATTN: [place] [address]MS: 03/18/2018 Secondary NOT GIVENUNK [place] Insurance:SELF PAY [facility] Number: Effective Repository Date:2018-03-18 03/17/2018 GILMA Fernandez Primary GILMA Phamoster [id number] Insurance:CARESOURCEP RADHADOB: [facility] ABBIE tan Number: [id number], [place] [id number] Repository [address]Sax: ([phone]) Date:2018-03-17P O [phone] () [address]ATTN: [place] [address]UV: 03/17/2018 Secondary NOT GIVENUNK [place] Insurance:SELF PAY [facility] Number: Effective Repository Date:2018-03-17 03/14/2018 GILMA Fernandez Primary GILMA Phamoster [id number] Insurance:CARESOURCEP RADHADOB: [facility] ABBIE tan Number: [id number], [place] [id number] Repository [address]Per: ([phone]) Date:2018-03-14P O [phone] () [address]ATTN: [place] [address]UP: 03/14/2018 Secondary NOT GIVENUNK [place] Insurance:SELF PAY [facility] Number: Effective Repository Date:2018-03-14 02/22/2018 GILMA Fernandez Primary GILMA Fernandez [facility]636 Insurance:CARESOURCEP MICHELEB: [facility] marija Number: [id number], [place] [id number] Repository [address]Vva: ([phone]) Date:2018-02-22P O [phone] () [address]ATTN: [place] [address]OM: 02/22/2018 Secondary NOT GIVENUNK [place] Insurance:SELF PAY [facility] Number: Effective Repository Date:2018-02-22 11/23/2017 GILMA Fernandez Primary [facility] Insurance:CARESOURCEP MICHELEB[facility] Number: [id number] [place], [place] [id number] Repository [address]Yuo: ([phone]) Date:2017-11-23P O [phone] () [address]ATTN: [place] [address]GX: 11/23/2017 Secondary NOT GIVENUNK [place] Insurance:SELF PAY [facility] Number: Effective Repository Date:2017-11-23 11/03/2017 GILMA Fernandez Primary GILMA Fernandez [facility]: Insurance[facility]CARESOURCE [facility] [place] [facility]ID[facility] [id number] Repository [facility] Number: SARMAD ARCHULETA, [id number] [place] [address]Hla: Date:2017-11-03 [place] [address]Vjg: [id number] () Name:[address] ()Tel: [phone] [address], [place] [phone] (RS) [address]WP: 07/09/2017 Gilma Fernandez Primary [place] [address] [place] Insurance:SELF PAY [address] [address]Sdn: Number: Effective Repository [phone] Date:2017-07-09 ()
== END 2018-03-20 17:40 | disposition home or self-care (01) ==
LOC: ED 16:20 → MS3 18:21
PROVIDERS: Surgery; Admitting Provider Surgery; Emergency Provider Emergency Medicine; Family Provider Internal Medicine; PCP Internal Medicine; Referring Provider Surgery; Visit Provider Surgery
PROC: (CPT 43260; principal; 2018-03-19 15:30)
DX: K83.1 Obstruction of bile duct (principal); E87.6 Hypokalemia; Z87.891 Personal history of nicotine dependence; Z79.899 Other long term (current) drug therapy; R94.31 Abnormal electrocardiogram [ECG] [EKG]
CPT/HCPCS: 43262; 36415; 74328; 76000; 80048; 80053; 80074; 80076; 83690; 85025; 85027; 93005; 96361; 96365; 96366; 96375; 96376; 97802; 99218; 99282; J7030; J7120; A4216; G0378; J2405

== ENCOUNTER 2019-03-20 22:29 | Emergency (ER) | payer MEDICAID, SELFPAY ==
[2018-03-19 14:18] VITALS: BMI 32.5
[2019-03-20 22:29] VITALS: BP 174/104; PULSE 103; RESP 16; TEMP 36.7; O2SAT 96; BMI 31.8
--- NOTE | 2019-03-20 22:43 | RAD_ITS ---
HISTORY: left ankle pain after falling down steps EXAMINATION/TECHNIQUE: XR left ankle 3 views COMPARISON: None FINDINGS: No fracture, dislocation, or bony abnormality. The tibiotalar joint space appears preserved and the talar dome appears intact. As visualized, the soft tissues are negative. RAD/Ankle min 3 Views IMPRESSION: Negative exam. No fracture or acute osseous abnormality. at 9119 Reported and signed by: Diego Peña MD Electronically Signed: Diego Peña, at 23:18 EST Tel , Service support ,
--- NOTE | 2019-03-20 22:43 | ED.VIS.GEN ---
History of Present Illness Chief Complaint: Lower Extremity Injury Narrative: Patient is a 48-year-old female who presents with left ankle pain. She was walking her dog who then pulled and caused her to fall down 3 steps. She is uncertain but believes she everted the ankle. She was initially able to stand and bear weight but it was too painful to walk up the steps and her pain is worsened since that time. She now states she is unable to bear weight due to pain. No numbness tingling or weakness. No other injuries. She did not fall, hit her head, no chest pain abdominal pain back pain. No recent illness. Past Medical History - Allergies and Home Meds Allergies/Adverse Reactions: Allergies meloxicam [From Mobic] Allergy (Verified 03/20/19 22:34) Hives naproxen [From Naprosyn] Allergy (Verified 03/20/19 22:34) Hives codeine Adverse Reaction (Verified 03/20/19 22:34) Vomiting hydrocodone bitartrate [From Vicodin] Adverse Reaction (Verified 03/20/19 22:34) Nausea morphine Adverse Reaction (Verified 03/20/19 22:34) Chest tightness Primary Care Physician: Rosana Bryant MD [Primary Care Provider] - Past Medical History: - - Hypertension Surgical History: adenoidectomy, cholecystectomy, tonsillectomy Smoking Status: Never smoker - Family History Maternal Family History: Reports: Heart Disease, - - mother with cad at early age Paternal Family History: Reports: Heart Disease, - - father with cad at early age Review of Systems All systems negative except as indicated General: Denies: Fever Cardiovascular: Denies: Chest pain Respiratory: Denies: Dyspnea Gastrointestinal: Denies: Nausea, Vomiting Musculoskeletal: Reports: - - Left ankle pain Skin: Denies: Rash Neurological: Denies: Headache Allergy: Denies: Uticaria Physical Exam Vital Signs/Narrative: Vital Signs Temp Pulse Resp BP Pulse Ox 03/20/19 22:29 98.0 F 103 H 16 174/104 H 96 Inital Vital Signs reviewed: Yes General: Well nourished Head: Normocephalic Eyes: EOMI ENT: Moist mucous membranes Cardiovascular: Regular rate Respiratory: No distress Extremities: - - Patient has diffuse left ankle tenderness, no focal bony tenderness, no deformity, no soft tissue swelling, no ecchymosis, brisk capillary refill with normal sensation to light touch, motor function intact Skin: Normal color Neurological: Alert Psychological: Normal affect Diagnostic/Tx/Re-eval Impressions Ankle X-Ray 03/20/19 22:43 IMPRESSION: Negative exam. No fracture or acute osseous abnormality. at 2319 Reported and signed by: Diego Peña MD Electronically Signed: Diego Peña, at 23:18 EST Tel , Service support , 03/20/19 22:43 Ankle min 3 Views [RAD] Stat - Medical Decision Making Patient was given an ice pack. Left ankle x-ray was obtained. Ankle x-ray is negative for fracture. Patient lists multiple allergies including naproxen, meloxicam, codeine, hydrocodone. She was given Tylenol for pain. She was also given an Aircast. She was advised on supportive care including rest ice and elevation. Patient was discharged home. ED Disposition - Plan for ED Patient: Disposition: Home or Assisted Living Diagnosis: Left ankle sprain Instructions: Sprain, Ankle, with X-Ray Referrals: Rosana Bryant MD [Primary Care Provider] -
[2019-03-20] MEDS: Acetaminophen 500 MG Tablet 1000 MG PO (23:33)
== END 2019-03-20 23:41 | disposition home or self-care (01) ==
PROVIDERS: Emergency Provider Emergency Medicine; Family Provider Internal Medicine; PCP Internal Medicine
DX: S93.402A Sprain of unspecified ligament of left ankle, initial encounter (principal); W10.9XXA Fall (on) (from) unspecified stairs and steps, initial encounter; Y93.K1 Activity, walking an animal; Y92.9 Unspecified place or not applicable; Y99.9 Unspecified external cause status; I10 Essential (primary) hypertension; Z79.899 Other long term (current) drug therapy; Z90.49 Acquired absence of other specified parts of digestive tract
CPT/HCPCS: 73610; 99283

== ENCOUNTER 2020-10-21 20:37 | Emergency (ER) | payer SELFPAY ==
[2020-10-21 20:38] VITALS: BP 209/127; PULSE 93; RESP 15; TEMP 36.4; O2SAT 98; BMI 31.8
--- NOTE | 2020-10-21 20:43 | EX.ED.UPPERE ---
HPI History of Present Illness HPI Narrative: Right wrist pain post fall. Chief Complaint: Upper Extremity Injury Informant: patient Occured/Mechanism Mechanism/Context: Yes injury Onset/Context/Timing Onset: Today and Hours Context: Sudden Onset Timing: Continuous Quality of Pain: Sharp and Aching Current Severity: Mild Maximum Severity: Moderate Narrative Narrative: 50-year-old female history of hypertension and bilateral carpal tunnel surgeries. She is left-hand dominant. Patient was at [employer]ping she fell and landed awkwardly on her right wrist. This occurred several hours ago. She is complaining of more pain and swelling. Denies any other injuries did not hit her head. No neck pain. She is on no blood thinners. Prior similar symptoms: No Recent Illness/Hospitalization: No PFSH PFSH Home Medications losartan 1 tab PO DAILY 03/20/19 [History Last Taken Unknown] Allergy/AdvReac Type Severity Reaction Status Date / Time meloxicam [From Mobic] Allergy Hives Verified 10/21/20 20:39 naproxen [From Naprosyn] Allergy Hives Verified 10/21/20 20:39 codeine AdvReac Vomiting Verified 10/21/20 20:39 hydrocodone bitartrate AdvReac Nausea Verified 10/21/20 20:39 [From Vicodin] morphine AdvReac Chest Verified 10/21/20 20:39 tightness Social History Smoking Status: Never smoker ROS ROS ED ROS Narrative Denies any recent illness. Review of Systems ROS Unobtainable: Denies due to encephalopathy Constitutional Constitutional ED: Denies frequent falls Eyes Eyes: Denies change in vision ENT ENT ED: Denies ear pain or sore throat Cardiovascular Cardiovascular: Denies chest pain Respiratory/Chest Respiratory/Chest: Denies dyspnea Gastrointestinal Gastrointestinal: Denies abdominal pain, nausea or vomiting Genitourinary Genitourinary ED: Denies dysuria Musculoskeletal Musculoskeletal: Denies myalgias Integumentary Denies rash Neurologic Neurologic: Denies headache(s) Psychiatric Psychiatric: Denies depression Endocrine Endocrinology: Denies polyuria Hematologic/Lymphatic Hematologic/Lymphatic: Denies easy bruising Allergic/Immunologic Allergic/Immunologic ED: Denies urticaria EXAM Physical Exam Narrative Exam Narrative: Well-appearing middle-aged female. Has an obvious right wrist deformity. X-ray pending. HEENT exam unremarkable atraumatic. Neck nontender. Lungs are clear. Chest were nontender. Abdomen soft nontender. Back nontender. Left upper and both lower extremities are neurovascular intact with full range of motion and nontender. Right shoulder and elbow are unremarkable nontender. Const Vital Signs: 10/21/20 20:38 Temperature 97.6 F L Temperature Source Temporal Pulse Rate 93 Respiratory Rate 15 Blood Pressure 209/127 H Blood Pressure Mean 154 Pulse Ox 98 Oxygen Delivery Method Room Air Positive well nourished and well developed General Appearance ED: well developed HEENT Reports moist mucous membranes normocephalic and atraumatic; Negative for trauma or tenderness Eyes PERRL and EOMs intact bilaterally Neck full ROM and supple General: Negative for tenderness Chest Wall inspection of chest normal and palpation of chest normal Resp normal respiratory effort and clear to auscultation bilaterally Effort and Inspection: Negative for pain with movement Cardio regular rate, regular rhythm, S1 normal heart sound, S2 normal heart sound and no murmurs GI non-tender, non-distended and no masses Auscultation: normoactive bowel sounds Palpation: soft; Negative for tender or guarding Back/Spine no CVA tenderness General Back: Negative for CVA tenderness Cervical Spine: Negative for cervical spine tenderness Extremity normal to inspection Extremity Narrative: Extremities are unremarkable except right wrist tender, swollen with decreased range of motion and pain with attempted range of motion. He has neurovascularly intact with radial pulse, cap refill and touch sensation. She is able to wiggle her fingers. Exam is very concerning for right wrist fracture. Elbow and shoulder are unremarkable. Neuro oriented x3 Sensorium / Orientation: alert, oriented to person, oriented to place and oriented to time; Negative for orientation impaired, lethargic or stuporous Psych mental status grossly normal Skin Lesions: no lesions Rashes: no rashes MDM MDM MDM Narrative Medical decision making narrative: Patient post fall with right wrist pain deformity and swelling. X-ray being obtained. 2 [place] for pain. Repeat exam patient is doing well. I did also await the radiologist's interpretation agrees with mine and there is no fracture seen. Should be treated with a Velcro wrist splint for a wrist sprain. Ice and elevate. Tylenol and Motrin. Follow-up if not improving in a week to 14 days. Radiography Diagnostic Testing: Right wrist x-ray 3 views interpreted by myself shows no acute abnormality. No fracture or dislocation. Also reviewed by the radiologist and agrees. Discharge Plan Triage Chief Complaint: Upper Extremity Injury ED Provider: Alejandro Kline Dx/Rx/DC Orders Clinical Impression: Right wrist sprain Instructions: ED Wrist Sprain Prescriptions: No Action losartan 50 MG tablet 1 tab PO DAILY RF: 0 Primary Care Provider: Rosana Bryant Referrals: Rosana Bryant MD [Primary Care Provider] - 1 Week if not improving Activity Restrictions/Additional Instructions: No broken bone seen on the x-ray read both myself and radiologist. Ice and elevate to decrease pain and swelling. Motrin for pain and swelling and Tylenol for pain. Follow-up if not improving. Disposition Disposition: Home, Self Care
[2020-10-21 20:52] VITALS: BP 187/107
[2020-10-21] MEDS: HYDROcodone Bitartrate/Apap 5/325 Tablet PO (21:18)
--- NOTE | 2020-10-21 21:27 | RAD_ITS ---
STUDY: X-RAY - RIGHT WRIST REASON FOR EXAM: Female, 50 years old. trauma/pain after injury. TECHNIQUE: 3 view(s) of the wrist were obtained. COMPARISON: None. FINDINGS: Normal visualized distal radius and ulna. Mild degenerative narrowing of the radiocarpal joint. Normal distal radioulnar articulation. Normal carpal bones. Mild degenerative changes of the navicular multangular articulation. Mild degenerative changes of the first carpometacarpal joint. Normal second through fifth carpometacarpal articulations. Normal visualized metacarpal bones. The soft tissue structures are unremarkable. RAD/Wrist min 3 Views IMPRESSION: Negative for fracture or dislocation. Mild degenerative changes as outlined above. Electronically Signed: Harmony Heard MD at 22:19 EDT , Service support ,
== END 2020-10-21 22:45 | disposition home or self-care (01) ==
PROVIDERS: Emergency Provider Emergency Medicine; PCP Internal Medicine
DX: S63.501A Unspecified sprain of right wrist, initial encounter (principal); W19.XXXA Unspecified fall, initial encounter
CPT/HCPCS: 73110; 99283

== ENCOUNTER 2021-12-06 19:31 | Emergency (ER) | payer SELFPAY ==
[2021-12-06 19:33] VITALS: BP 180/112; PULSE 99; RESP 17; TEMP 37.2; O2SAT 99; BMI 31.8
--- NOTE | 2021-12-06 19:47 | CT_ITS ---
STUDY: CT CHEST, ABDOMEN T PELVIS WITHOUT CONTRAST REASON FOR EXAM: Female, 51 years old. Right rib injury. Fell in the shower last night. RADIATION DOSAGE (If Supplied By Facility): CTDIvol = ( 21.64 ) mGy, DLP = ( 1876.56 ) mGycm TECHNIQUE: Transaxial imaging was performed without the administration of intravenous contrast material. Individualized dose optimization techniques were used for this CT. COMPARISON: No relevant priors. FINDINGS: CHEST The lungs are normal. There is no demonstrated pleural abnormality. Normal heart and pericardium. There are no coronary artery calcifications. Normal mediastinum. Normal hilar regions. Normal unenhanced pulmonary arteries. Normal aorta arch and descending thoracic aorta. There are multi-level degenerative changes of the thoracic spine. ABDOMEN The lack of intravenous contrast limits evaluation of solid visceral organs. Normal liver. There is non-visualization of the gallbladder, which may be secondary to either contraction or a prior cholecystectomy. Normal spleen. Normal pancreas. Normal bilateral adrenal glands. Normal right kidney. Normal left kidney. Normal visualized stomach. Normal small intestine. There are a few scattered diverticula arising from the colon. The appendix is visualized and appears normal. Normal abdominal aorta. Normal inferior vena cava. Normal retroperitoneum. PELVIS Normal urinary bladder. There is no pelvic fluid. There is no pelvic lymphadenopathy or mass lesion. There are tubal ligation clips visualized within the pelvis. Normal visualized pelvic arteries. Normal abdominal wall. There are diffuse degenerative changes of the visualized lumbar spine. CT/CT Chest, Abd, Pelvis WO Cont IMPRESSION: No acute intrathoracic nor intra-abdominal process. Colonic diverticulosis. Degenerative changes of the thoracic and lumbar spine. Electronically Signed: Leah Willson MD at 20:52 EDT ,
--- NOTE | 2021-12-06 19:48 | ED.VIS.FALL ---
HPI HPI - Fall History of Present Illness Chief Complaint: Fall Informant: patient Narrative Narrative: Presents by private vehicle sent from urgent care for evaluation. Fall yesterday after getting out of the shower. States had transient dizziness and tripping over her feet hitting her head and her ribs against a cabinet. Denies loss of consciousness. Denies anticoagulation medicines. Reports headache and mild nausea however primary pain is in the right rib region. No dyspnea. Reports right elbow pain worse with movement. Multiple allergies has tolerated Percocet. PFSH PFS Medical History (Updated 12/06/21 @ 21:[address] Hamlet Waters DO) Hypertension Home Medications losartan 50 mg tablet 1 tab PO DAILY 03/20/19 [History Last Taken Unknown] ondansetron 4 mg disintegrating tablet 4 mg PO Q6H PRN nausea and vomiting #10 tabs 12/06/21 [Rx Last Taken Unknown] oxycodone-acetaminophen 5 mg-325 mg tablet (Percocet) 1 tab PO Q6H PRN pain 3 days #12 tabs 12/06/21 [Rx Last Taken Unknown] Allergy/AdvReac Type Severity Reaction Status Date / Time meloxicam [From Mobic] Allergy Hives Verified 12/06/21 19:32 naproxen [From Naprosyn] Allergy Hives Verified 12/06/21 19:32 codeine AdvReac Vomiting Verified 12/06/21 19:32 hydrocodone bitartrate AdvReac Nausea Verified 12/06/21 19:32 [From Vicodin] morphine AdvReac Chest Verified 12/06/21 19:32 tightness Surgical History (Updated 12/06/21 @ 19:58 by Jocelyn Au) History of cholecystectomy History of hysterectomy History of tonsillectomy Social History Smoking Status: Former smoker ROS ROS ED Constitutional Constitutional ED: Denies chills, fever(s) or sweats Eyes Eyes: Denies change in vision ENT ENT ED: Denies dysphagia or sore throat Cardiovascular Cardiovascular: Reports other Details: Right-sided chest wall pain. ; Denies chest pain, leg edema, palpitations or racing heartbeat Respiratory/Chest Respiratory/Chest: Denies cough, dyspnea or dyspnea on exertion Gastrointestinal Gastrointestinal: Reports nausea; Denies abdominal pain, diarrhea or vomiting Genitourinary Genitourinary ED: Denies dysuria, hematuria or urinary frequency Musculoskeletal Musculoskeletal: Denies back pain, extremity pain or neck pain Integumentary Denies rash or wounds Neurologic Neurologic: Reports headache(s); Denies paresthesias or weakness EXAM Physical Exam Const Vital Signs: 12/06/21 19:33 12/06/21 19:57 12/06/21 21:58 Temperature 98.9 F Temperature Source Temporal Pulse Rate 99 Respiratory Rate 17 16 Respiratory Effort Normal Respiratory Pattern Normal Blood Pressure 180/112 H Blood Pressure Mean 134 Pulse Ox 99 Oxygen Delivery Method Room Air Positive well nourished and well developed General Appearance ED: well developed and NAD HEENT Reports normocephalic, TM's normal bilaterally and moist mucous membranes normocephalic and atraumatic Eyes PERRL, EOMs intact bilaterally and conjunctivae normal General Eye ED: Yes normal appearance of both eyes Neck no lymphadenopathy and supple General: Negative for tenderness Chest Wall inspection of chest normal Chest Narrative: Tender palpation right lower lateral rib cage no crepitus. Also tenderness of along the upper parathoracic's. Chest: Negative for tenderness Resp normal respiratory effort and normal air movement Resp Narrative: Symmetric breath sounds. Effort and Inspection: symmetric chest movement; Negative for respiratory distress Cardio regular rate, regular rhythm and no murmurs Peripheral Pulses: pulses 2+ throughout GI normal to inspection, nondistended, normoactive bowel sounds and non-tender Palpation: Negative for guarding or rebound tenderness present Back/Spine no CVA tenderness and no thoracic nor lumbar tenderness Back/Spine Narrative: No midline thoracic or lumbar tenderness. No step-offs. Extremity normal to inspection General Extremety ED: Negative for edema or tenderness General Extremity: Negative for edema Neuro oriented x3 and no sensory deficits noted Sensorium / Orientation: awake and alert Skin no rashes or lesions noted and no wounds MDM MDM MDM Narrative Medical decision making narrative: Nexus CT head criteria negative. Discussed concussion symptoms with the patient. She understands. Did not want imagings of her head. However fell pretty hard into cabinets is tenderness right lateral ribs and no along the upper parathoracic's. Trauma scans chest abdomen pelvis without contrast negative for any acute process. Right elbow 3 views reviewed by myself and read by radiology shows no acute process history of oxycodone. Pain with more improved. Prescription for pain control incentive spirometry. Follow-up with her PCP. All questions were answered. Radiography Diagnostic Testing: Clinical Impression(s) from Imaging Studies Chest/Abdomen/Pelvis CT 12/06/21 19:47 IMPRESSION: No acute intrathoracic nor intra-abdominal process. Colonic diverticulosis. Degenerative changes of the thoracic and lumbar spine. Electronically Signed: Leah Willson MD at 20:52 EDT , Elbow X-Ray 12/06/21 20:20 IMPRESSION: No acute osseous injury. Electronically Signed: Leah Willson MD at 20:45 EDT , Discharge Plan Triage Chief Complaint: Fall ED Provider: Hamlet Waters Dx/Rx/DC Orders Clinical Impression: Concussion without loss of consciousness, initial encounter, Contusion of rib on right side, Contusion of elbow, right Instructions: Concussion Dc, ED Contusion, Upper Extremity, ED Chest Wall Contusion Prescriptions: New oxycodone-acetaminophen [Percocet] 5-325 mg tablet 1 tab PO Q6H PRN (Reason: pain) 3 Days Qty: 12 0RF ondansetron 4 mg tablet,disintegrating 4 mg PO Q6H PRN (Reason: nausea and vomiting) Qty: 10 0RF No Action losartan 50 MG tablet 1 tab PO DAILY Label Comments: TAKE 1 TABLET BY MOUTH ONCE DAILY Primary Care Provider: Rosana Bryant Referrals: Rosana Braynt MD [Primary Care Provider] - 5-7 Days Activity Restrictions/Additional Instructions: Scan of chest abdomen pelvis negative. Right elbow negative. Wyatt wrap to elbow for comfort. Use incentive spirometer every 2 hours while awake. Take medications as prescribed. Follow-up with your doctor. Disposition Disposition: Home, Self Care Discharge Date/Time: 12/06/21 21:59
[2021-12-06] MEDS: oxyCODONE 5 MG Tablet PO (19:55)
--- NOTE | 2021-12-06 20:20 | RAD_ITS ---
STUDY: X-RAY - RIGHT ELBOW REASON FOR EXAM: Female, 51 years old. Injury TECHNIQUE: 3 view(s) of the elbow. COMPARISON: None. FINDINGS: Normal visualized humerus and radius. There is an enthesophyte arising from the olecranon. Normal radiocapitellar and ulnotrochlear articulations. The soft tissue structures are unremarkable. RAD/Elbow min 3 Views IMPRESSION: No acute osseous injury. Electronically Signed: Leah Willson MD at 20:45 EDT ,
[2021-12-06 21:58] VITALS: RESP 16
== END 2021-12-06 21:59 | disposition home or self-care (01) ==
PROVIDERS: Emergency Provider Emergency Medicine; PCP Internal Medicine; Visit Provider Emergency Medicine
DX: S06.0X0A Concussion without loss of consciousness, initial encounter (principal); S20.211A Contusion of right front wall of thorax, initial encounter; S50.01XA Contusion of right elbow, initial encounter; Z87.891 Personal history of nicotine dependence; W19.XXXA Unspecified fall, initial encounter
CPT/HCPCS: 71250; 73080; 74176; 99251; 99283; G0463

== ENCOUNTER 2022-02-24 08:45 | Emergency (ER) | payer SELFPAY ==
[2022-02-24 08:46] VITALS: BP 174/90; PULSE 89; RESP 18; TEMP 36.2; O2SAT 100; BMI 31.8
--- NOTE | 2022-02-24 09:00 | EDS_ITS ---
HPI HPI - Fall History of Present Illness Chief Complaint: Fall Narrative Narrative: 51-year-old female past medical history of hypertension slipped down the basement stairs yesterday as she was carrying a laundry basket. She states she struck the back of her head on a cabinet at the bottom of the stairs where she keeps her laundry soap. She denies any neck pain, no loss of consciousness. She presents today because she is having nausea and headache. She states that she had brief memory loss which has resolved, that was last evening. She also complains of left shoulder pain. She thinks she fell onto her left side and is having pain on the back of her left shoulder that is worse with movement. She is right-hand dominant. She was mainly concerned about the headache, nausea, and only mention the left shoulder pain during examination. She does not take any blood thinners. [facility] Medical History Hypertension Home Medications losartan 50 mg tablet 1 tab PO DAILY 03/20/19 [History Last Taken Unknown] ondansetron 4 mg disintegrating tablet 4 mg PO Q6H PRN nausea and vomiting #10 tabs 12/06/21 [Rx Last Taken Unknown] oxycodone-acetaminophen 5 mg-325 mg tablet (Percocet) 1 tab PO Q6H PRN pain 3 days #12 tabs 12/06/21 [Rx Last Taken Unknown] ondansetron 4 mg disintegrating tablet 4 mg PO Q6H PRN nausea and vomiting #15 tabs 02/24/22 [Rx Last Taken Unknown] Allergy/AdvReac Type Severity Reaction Status Date / Time meloxicam [From Mobic] Allergy Hives Verified 02/24/22 08:49 naproxen [From Naprosyn] Allergy Hives Verified 02/24/22 08:49 codeine AdvReac Vomiting Verified 02/24/22 08:49 hydrocodone bitartrate AdvReac Nausea Verified 02/24/22 08:49 [From Vicodin] morphine AdvReac Chest Verified 02/24/22 08:49 tightness Surgical History History of cholecystectomy History of hysterectomy History of tonsillectomy Social History Smoking Status: Former smoker ROS ROS ED ROS Narrative Constitutional: No fever, no chills. HEENT: No sore throat. No neck pain. No loss of vision. No rhinorrhea. Cardiovascular: No chest pain. No palpitations. No pedal edema. Respiratory: No cough, no shortness of breath. Abdominal: No abdominal pain. Positive nausea. No vomiting. Genitourinary: No dysuria. No hematuria. Musculoskeletal: No myalgias. Posterior left shoulder pain Neurologic: Positive headaches. No dizziness. No lightheadedness. Skin: No rash. No change in color. Psychiatric: No depression. No anxiety. EXAM Physical Exam Narrative Exam Narrative: Afebrile. Vital signs noted. GCS 15. ABCs intact. HEENT: Normocephalic. Atraumatic. PERRL, EOMI. Neck soft and supple. No point tenderness or step off. Cardiovascular: Regular rate and rhythm. No murmurs, rubs, or gallops appreciated. Respiratory: No tachypnea. Lungs clear to auscultation bilaterally. Gastrointestinal: Abdomen soft, nontender, with normoactive bowel sounds. No rebound or guarding. Neurological: Awake. Alert. Oriented x3. Nonfocal, nonlateralizing. Able to raise arms above head. Skin: No rash. Normal color. No pallor. Musculoskeletal: No pedal edema. Full range of motion extremities with exception of slight decrease in range of motion of left shoulder secondary to posterior shoulder pain. No evidence of clinical dislocation left shoulder. Palpable radial pulse. Flexion and extension of elbow intact. Const Vital Signs: 02/24/22 08:46 02/24/22 08:55 Temperature 97.2 F L Temperature Source Temporal Pulse Rate 89 Respiratory Rate 18 Respiratory Effort Normal Non-Labored Respiratory Depth Normal Respiratory Pattern Normal Blood Pressure 174/90 H Blood Pressure Mean 118 Pulse Ox 100 Oxygen Delivery Method Room Air Room Air MDM MDM MDM Narrative Medical decision making narrative: I do not feel that CT of the brain is indicated. I do feel she is having more postconcussive syndrome symptoms. Her injury was approximately 13 hours ago. Given her left shoulder pain, x-rays were obtained of the left shoulder in 2 views. I interpreted her x-rays and see no evidence of dislocation or acute fracture. She was given a Zofran ODT for her nausea. She was instructed on brain rest. At this point in time, I feel she can be discharged safely home with follow-up. She will take [id number] analgesics for her headache and her left shoulder pain. She will follow-up with her primary care physician. She was instructed that she should follow-up with her primary care provider in 7 to 10 days should her symptoms of concussion persist. Return instructions to the emergency department were reviewed. Disposition is discharged home in stable condition. Discharge Plan Triage Chief Complaint: Fall ED Provider: Francois Caba Dx/Rx/DC Orders Clinical Impression: Fall, Post concussion syndrome, Left shoulder pain, Contusion of left shoulder, initial encounter Instructions: ED Concussion, ED Mechanical Fall, ED Shoulder Contusion Prescriptions: New ondansetron 4 mg tablet,disintegrating 4 mg PO Q6H PRN (Reason: nausea and vomiting) Qty: 15 0RF No Action losartan 50 MG tablet 1 tab PO DAILY Label Comments: TAKE 1 TABLET BY MOUTH ONCE DAILY oxycodone-acetaminophen [Percocet] 5-325 mg tablet 1 tab PO Q6H PRN (Reason: pain) 3 Days Qty: 12 0RF ondansetron 4 mg tablet,disintegrating 4 mg PO Q6H PRN (Reason: nausea and vomiting) Qty: 10 0RF Primary Care Provider: Rosana Bryant Referrals: Rosana Bryant MD [Primary Care Provider] - 1 Week if not improving Disposition Disposition: Home, Self Care
--- NOTE | 2022-02-24 09:02 | RAD_ITS ---
EXAM: XR LEFT SHOULDER COMPLETE, 2 OR MORE VIEWS CLINICAL INDICATION: Left shoulder pain. TECHNIQUE: Two or more views of the left shoulder. This report was created using [employer] report generation technology. COMPARISON: None. FINDINGS: BONES/JOINTS: Unremarkable. No acute fracture. No subluxation. Normal alignment. Preservation of the joint space. No sclerotic or destructive changes observed. SOFT TISSUES: Unremarkable. No soft tissue swelling or gas. No radiopaque foreign body. RAD/Shoulder min 2 Views IMPRESSION: Negative left shoulder x-rays. Electronically Signed: Francois Mo MD at 9:42 EST ,
[2022-02-24] MEDS: Ondansetron ODT 4 MG Tablet PO (09:05)
== END 2022-02-24 09:40 | disposition home or self-care (01) ==
PROVIDERS: Emergency Provider Emergency Medicine; PCP Internal Medicine; Visit Provider Emergency Medicine
DX: S06.0X0A Concussion without loss of consciousness, initial encounter (principal); S40.012A Contusion of left shoulder, initial encounter; W10.9XXA Fall (on) (from) unspecified stairs and steps, initial encounter; Z87.891 Personal history of nicotine dependence
CPT/HCPCS: 99281; 73030; 99283

== ENCOUNTER 2022-08-13 06:56 | Emergency (ER) | payer MEDICAID, SELFPAY ==
[2022-08-13 06:57] VITALS: BP 164/84; PULSE 73; RESP 16; TEMP 36.2; O2SAT 98; BMI 35.6
--- NOTE | 2022-08-13 07:12 | CT_ITS ---
HISTORY: trauma. TECHNIQUE: Multiple axial images were obtained of the head without intravenous contrast. A radiation dose optimization technique was used for this scan. 237 images. COMPARISON: 04/13/2016. FINDINGS: BRAIN PARENCHYMA: No significant attenuation abnormality. No acute intra-axial hemorrhage. CSF SPACES: Cerebral ventricles, cortical sulci, and other extra-axial CSF spaces within normal limits in size for age. No midline shift or other significant mass effect. No acute extra-axial hemorrhage. OTHER: Intact calvarium. No significant air fluid levels in the paranasal sinuses or mastoid air cells. Unremarkable orbits. CT/Brain/Head without Contrast IMPRESSION: No acute intracranial process identified. Electronically Signed: Julia Major MD at 8:09 EDT ,
--- NOTE | 2022-08-13 07:18 | ED.VIS.FALL ---
HPI HPI - Fall History of Present Illness Chief Complaint: Fall Narrative Narrative: Patient sustained a mechanical fall and her son's apartment yesterday, she hit the back of her head and her right shoulder. She has some nausea and a headache today, she has no vision changes. She did not pass out. She also has shoulder pain especially when she moves it is better at rest. No neck pain no back pain or any other injuries. PFSH PFSH Medical History Hypertension Home Medications metoprolol succinate 100 mg capsule sprinkle, ext. release 24 hr 100 mg PO DAILY 08/13/22 [History Last Taken Unknown] Allergy/AdvReac Type Severity Reaction Status Date / Time meloxicam [From Mobic] Allergy Hives Verified 08/13/22 07:02 naproxen [From Naprosyn] Allergy Hives Verified 08/13/22 07:02 codeine AdvReac Vomiting Verified 08/13/22 07:02 hydrocodone bitartrate AdvReac Nausea Verified 08/13/22 07:02 [From Vicodin] morphine AdvReac Chest Verified 08/13/22 07:02 tightness Surgical History History of cholecystectomy History of hysterectomy History of tonsillectomy Social History Smoking Status: Former smoker ROS ROS ED ROS Narrative Social: Noncontributory Medications: Reviewed Past medical history: Hypertension Review of systems General: Head injury without loss of consciousness HEENT: No facial injury Neck: No neck pain Cardiovascular: Patient denies any chest pain or palpitations Chest wall: No chest wall contusions Respiratory: There is no shortness of breath GI: Some nausea but no vomiting. No abdominal pain Skin: No lacerations or abrasions Neurological: Patient has no memory loss, confusion, or any focal weakness Back: No back pain, no problems with ambulation Musculoskeletal: Right shoulder pain EXAM Physical Exam Narrative Exam Narrative: Physical exam Vitals reviewed General: Patient appears relatively comfortable in the bed she does not appear in any distress HEENT: No facial injury Head: No evidence of any head injury, no contusions, she does have some tenderness over the back of the head but there does not seem to be any hematoma abrasions or lacerations. Eyes: Extraocular movements intact Neck: No C-spine tenderness with full range of motion Heart: Regular rate normal pulses Chest wall: No chest wall pain Lungs clear lungs bilaterally with normal inspiration and expiration without tachypnea GI: Abdomen is soft and nontender there is no mass no guarding no abdominal wall contusion : Stable pelvis Musculoskeletal: Tenderness over the AC joint of the right shoulder, otherwise full range of motion with some pain. Skin: No abrasions or laceration Neurological: Patient is alert and oriented with no focal deficits Const Vital Signs: 08/13/22 06:57 08/13/22 07:03 Temperature 97.2 F L Temperature Source Temporal Pulse Rate 73 Respiratory Rate 16 Blood Pressure 164/84 H Blood Pressure Mean 110 Pulse Ox 98 Oxygen Delivery Method Room Air Room Air MDM MDM MDM Narrative Medical decision making narrative: Patient sustained a mechanical fall, head CT is normal shoulder x-ray is normal she likely has a shoulder contusion and may be a grade 1 AC joint injury. However no further treatment is needed. She was reassured. She seems quite comfortable does not need prescription analgesia she can take [id number] opiates. I thought about a CT of the C-spine along with the head however I do not think this is needed at this time the event happened yesterday she has no neck pain and she seems quite comfortable therefore I do not believe she has a distracting injury. Radiography Diagnostic Testing: Clinical Impression(s) from Imaging Studies Brain CT 08/13/22 07:12 IMPRESSION: No acute intracranial process identified. Electronically Signed: Julia Major MD at 8:09 EDT , Shoulder X-Ray 08/13/22 07:40 IMPRESSION: No acute fracture or dislocation identified in the right shoulder. Electronically Signed: Julia Major MD at 8:11 EDT , Right shoulder x-ray read by me as normal CT head interpreted by me as no bleed. Discharge Plan Triage Chief Complaint: Fall ED Provider: Preston Neri Dx/Rx/DC Orders Clinical Impression: Fall, Concussion without loss of consciousness, Contusion of right shoulder Instructions: After a Concussion Prescriptions: No Action metoprolol succinate 100 mg Capsule,Sprinkle,Er 24hr 100 mg PO DAILY Stand Alone Forms: ED Work / School Excuse Primary Care Provider: Rosana Bryant Referrals: Rosana Bryant MD [Primary Care Provider] - 2 Days Disposition Disposition: Home, Self Care
--- NOTE | 2022-08-13 07:40 | RAD_ITS ---
HISTORY: trauma. TECHNIQUE: XR Shoulder Min 2 Views. COMPARISON: 04/23/2015. FINDINGS: BONES : No acute fracture identified. Mineralization unremarkable. JOINTS: No dislocation. Joint spaces maintained. SOFT TISSUES: Right lung apex clear. RAD/Shoulder min 2 Views IMPRESSION: No acute fracture or dislocation identified in the right shoulder. Electronically Signed: Julia Major MD at 8:11 EDT ,
== END 2022-08-13 08:21 | disposition home or self-care (01) ==
PROVIDERS: Emergency Provider Emergency Medicine; PCP Internal Medicine; Visit Provider Emergency Medicine
DX: S06.0X0A Concussion without loss of consciousness, initial encounter (principal); S40.011A Contusion of right shoulder, initial encounter; I10 Essential (primary) hypertension; Z79.899 Other long term (current) drug therapy; Z87.891 Personal history of nicotine dependence; W19.XXXA Unspecified fall, initial encounter
CPT/HCPCS: 70450; 73030; 99282

== ENCOUNTER 2022-10-26 07:10 | Emergency (ER) | payer MEDICAID, SELFPAY ==
[2022-10-26 07:11] VITALS: BP 188/98; PULSE 80; RESP 14; TEMP 36.2; O2SAT 98; BMI 36.5
--- NOTE | 2022-10-26 07:20 | CT_ITS ---
INDICATION: head trauma EXAMINATION: CT BRAIN - CT Head or Brain W/O Contrast Injection TECHNIQUE: Multiple axial images were obtained of the head without intravenous contrast. A radiation dose optimization technique was used for this scan. IV Contrast dosage and agent: None. RADIATION DOSAGE (If Supplied By Facility): CTDIvol = ( 47.06 ) mGy, DLP = ( 837.39 ) mGycm COMPARISON: CT head 08/13/2022 FINDINGS: BRAIN: No acute bleed. No edema. Steinberg-white matter differentiation is maintained. VENTRICLES AND SULCI: Not dilated. EXTRA-AXIAL: No hemorrhage, fluid collection, or mass. CALVARIUM / SKULL BASE: Unremarkable. FACE/SINUSES: Mucosal thickening in the sphenoid and maxillary sinuses, new compared to prior. SOFT TISSUES: Unremarkable. Other: Material in the external auditory canals bilaterally likely cerumen, and unchanged. CT/Brain/Head without Contrast IMPRESSION: No evidence of acute intracranial injury. Electronically Signed: Mayte Hernández MD at 7:57 EDT ,
--- NOTE | 2022-10-26 07:20 | RAD_ITS ---
INDICATION: pain EXAMINATION/TECHNIQUE: X-RAY - XR Hip Unilateral with Pelvis when performed; 2-3 Views COMPARISON: FINDINGS: No fracture demonstrated. Femoral heads are normal contour. No dislocation at the hips. Surgical clips in the pelvis. RAD/HIP, UNI W/ Pelvis 2-3 Views IMPRESSION: No evidence of fracture. Electronically Signed: Mayte Hernández MD at 8:09 EDT ,
--- NOTE | 2022-10-26 07:20 | CT_ITS ---
INDICATION: trauma EXAMINATION: CT CERVICAL SPINE - CT Spine Cervical W/O Contrast Injection TECHNIQUE: Helically acquired images were obtained of the cervical spine. 2D reformatted images were reviewed. A radiation dose optimization technique was used for this scan. IV Contrast dosage and agent: None. RADIATION DOSAGE (If Supplied By Facility): CTDIvol = ( 21.43 ) mGy, DLP = ( 458.32 ) mGycm COMPARISON: FINDINGS: ALIGNMENT: No subluxation. Straightening of the normal curvature. MINERALIZATION: Normal. VERTEBRAL BODIES: No fracture or acute abnormality. DISC SPACES: Asymmetric disc space at C2-3 is widened posteriorly. POSTERIOR ELEMENTS: Mild facet arthropathy at several levels. SPINAL CANAL: Maintained. PARASPINAL SOFT TISSUES: Unremarkable. OTHER: None. CT/Spine Cervical without Contras IMPRESSION: No evidence of fracture or subluxation. Asymmetric widening posterior aspect of the C2-3 disc space may be related to the positioning, but cannot exclude ligamentous injury. MRI may be helpful for further evaluation if clinically indicated. Straightening of the normal curve may be due to positioning or muscle spasm. Electronically Signed: Mayte Hernández MD at 8:02 EDT ,
--- NOTE | 2022-10-26 07:20 | RAD_ITS ---
INDICATION: pain EXAMINATION/TECHNIQUE: X-RAY - LEFT XR Knee Complete 4 Views or More 4 VIEWS COMPARISON: Left knee x-rays 04/10/2016 FINDINGS: BONES: No fracture demonstrated. JOINTS: No dislocation. SOFT TISSUES: Unremarkable. RAD/Knee 4 or More Views IMPRESSION: No evidence of fracture. Electronically Signed: Mayte Hernández MD at 8:07 EDT ,
[2022-10-26] MEDS: Ondansetron ODT 4 MG Tablet PO (07:23)
--- NOTE | 2022-10-26 07:26 | ED.VIS.FALL ---
HPI HPI - Fall History of Present Illness Chief Complaint: Fall Narrative Narrative: 52-year-old female with chief complaint of headache and left hip and knee pain. Patient states that yesterday she was walking her dog and the dog pulled away and she to the left side in a twisting motion and fell hitting the back of her head. She denies LOC she does have some dizziness and blurry vision for a while. She states she developed a headache this morning. She was able to ambulate today, however she states that her knee is hurting her. Her hip her hip is also sore. Her blurry vision and dizziness has resolved. She has nausea associate with a headache. She is not on any blood thinners. PFSH [facility] Medical History Hypertension Home Medications metoprolol succinate 100 mg capsule sprinkle, ext. release 24 hr 100 mg PO DAILY 08/13/22 [History Last Taken Unknown] acetaminophen 650 mg tablet,extended release 650 mg PO Q8H PRN pain #30 tabs 10/26/22 [Rx Last Taken Unknown] ondansetron 4 mg disintegrating tablet 4 mg PO Q8H PRN PRN Nausea #14 tabs 10/26/22 [Rx Last Taken Unknown] Allergy/AdvReac Type Severity Reaction Status Date / Time meloxicam [From Mobic] Allergy Hives Verified 10/26/22 07:11 naproxen [From Naprosyn] Allergy Hives Verified 10/26/22 07:11 codeine AdvReac Vomiting Verified 10/26/22 07:11 hydrocodone bitartrate AdvReac Nausea Verified 10/26/22 07:11 [From Vicodin] morphine AdvReac Chest Verified 10/26/22 07:11 tightness Surgical History History of cholecystectomy History of hysterectomy History of tonsillectomy Social History Smoking Status: Former smoker ROS ROS ED Constitutional Constitutional ED: Denies chills, fever(s) or sweats Eyes Eyes: Reports blurry vision; Denies change in vision ENT ENT ED: Denies ear pain or sore throat Cardiovascular Cardiovascular: Denies chest pain, palpitations or racing heartbeat Respiratory/Chest Respiratory/Chest: Denies cough, dyspnea or sputum Gastrointestinal Gastrointestinal: Reports nausea; Denies abdominal pain, constipation, diarrhea or vomiting Genitourinary Genitourinary ED: Denies dysuria, hematuria or urinary frequency Musculoskeletal Musculoskeletal: Reports other Details: Left hip and knee pain. ; Denies arthralgias, myalgias or neck pain Integumentary Denies abscess, Abrasions or rash Neurologic Neurologic: Reports headache(s); Denies paresthesias or weakness Psychiatric Psychiatric: Denies anxiety, depression, suicidal ideation or suicidal thoughts Endocrine Endocrinology: Denies polydipsia or polyuria EXAM Physical Exam Const Vital Signs: 10/26/22 07:11 Temperature 97.1 F L Temperature Source Temporal Pulse Rate 80 Respiratory Rate 14 Blood Pressure 188/98 H Blood Pressure Mean 128 Pulse Ox 98 Oxygen Delivery Method Room Air Positive well nourished General Appearance ED: NAD HEENT Reports normocephalic and TM's normal bilaterally HEENT Narrative: Slight cephalhematoma on the vertex of the skull. No lacerations. No skull deformity. Eyes PERRL Neck full ROM Resp normal respiratory effort Cardio regular rate Extremity Extremity Narrative: Tenderness to palpation to the left greater trochanter. Negative logroll. Patient able to flex the left hip up off the bed without difficulty. There is tenderness to palpation of the medial aspect of the left knee at the joint line. There is pain with valgus strain. No ligamentous laxity. Neuro oriented x3, CN's II-XII intact bilaterally, moves all extremities, no focal motor deficits and no sensory deficits noted Pitman Coma Scale: document GCS findings Spontaneous Obeys Commands Oriented 15 Sensorium / Orientation: alert Psych mental status grossly normal and thought process normal MDM MDM MDM Narrative Medical decision making narrative: 52-year-old female presenting after a fall yesterday. She states she fell and hit her head and she had some blurry vision and nausea yesterday. Today she developed a headache. She also complains of left hip and left knee pain. Differential diagnosis includes concussion, intracranial hemorrhage, C-spine fracture, hip fracture, hip contusion, and knee fracture, knee contusion. Patient was given Zofran for nausea. She declined analgesia. CT brain and cervical spine were obtained and show nothing acute. Radiologist interprets the cervical spine as possible widening at 2?C3 however the patient does not have any particular pain here. CT of the C-spine was obtained due to head injury and distracting injury. X-ray of the left hip and left knee on my interpretation show no acute fractures or subluxation. Patient counseled on findings. She is given Zofran for home. She given concussion precautions. She given return precautions. Impression: 1. Mechanical fall 2. Concussion 3. Hip contusion 4. Knee contusion Radiography Diagnostic Testing: Clinical Impression(s) from Imaging Studies Brain CT 10/26/22 07:20 IMPRESSION: No evidence of acute intracranial injury. Electronically Signed: Mayte Hernández MD at 7:57 EDT Reading Location ID and State: [id number] , Service support , Cervical Spine CT 10/26/22 07:20 IMPRESSION: No evidence of fracture or subluxation. Asymmetric widening posterior aspect of the C2-3 disc space may be related to the positioning, but cannot exclude ligamentous injury. MRI may be helpful for further evaluation if clinically indicated. Straightening of the normal curve may be due to positioning or muscle spasm. Electronically Signed: Mayte Hernández MD at 8:02 EDT Reading Location ID and State: [employer] , Service support , Hip/Pelvis X-Ray 10/26/22 07:20 IMPRESSION: No evidence of fracture. Electronically Signed: Mayte Hernández MD at 8:09 EDT Reading Location ID and State: [employer] , Service support , Knee X-Ray 10/26/22 07:20 IMPRESSION: No evidence of fracture. Electronically Signed: Mayte Hernández MD at 8:07 EDT Reading Location ID and State: [id number] / [employer] , Service support , Discharge Plan Triage Chief Complaint: Fall ED Provider: Yoan Leal Dx/Rx/DC Orders Instructions: ED Concussion, ED Hip Contusion, ED Fall Prevention, ED Contusion Lower Extr Ch Prescriptions: New acetaminophen 650 mg tablet extended release 650 mg PO Q8H PRN (Reason: pain) Qty: 30 0RF ondansetron 4 mg tablet,disintegrating 4 mg PO Q8H PRN PRN (Reason: Nausea) Qty: 14 0RF No Action metoprolol succinate 100 mg Capsule,Sprinkle,Er 24hr 100 mg PO DAILY Primary Care Provider: Rosana Bryant Referrals: Rosana Braynt MD [Primary Care Provider] - Disposition Disposition: Home, Self Care Discharge Date/Time: 10/26/22 08:32
== END 2022-10-26 08:32 | disposition home or self-care (01) ==
PROVIDERS: Emergency Provider Student in an Organized Health Care Education/Training Program; PCP Internal Medicine; Visit Provider Student in an Organized Health Care Education/Training Program
DX: S06.0X0A Concussion without loss of consciousness, initial encounter (principal); S70.02XA Contusion of left hip, initial encounter; S80.02XA Contusion of left knee, initial encounter; Z87.891 Personal history of nicotine dependence; X58.XXXA Exposure to other specified factors, initial encounter
CPT/HCPCS: 70450; 72125; 73502; 73564; 99282

== ENCOUNTER 2023-03-30 03:33 | Emergency (ER) | payer MEDICAID, SELFPAY ==
[2023-03-30 03:35] VITALS: BP 172/98; PULSE 104; RESP 18; TEMP 35.6; O2SAT 96; BMI 35.6
[2023-03-30 03:39] VITALS: BP 172/98; PULSE 110; RESP 18; TEMP 35.6; O2SAT 96
--- NOTE | 2023-03-30 04:38 | EDS_ITS ---
HPI HPI - GI History of Present Illness Chief Complaint: Abd Pain Informant: patient Abdominal Pain/Flank Pain Onset: Yesterday Context: Sudden Onset Timing: Continuous Quality: Sharp Location: Diffuse Worsened by: Nothing Relieved by: Nothing Nausea/Vomiting/Emesis GI Symptom: Positive for Nausea and Vomiting Quality: Positive for Nonbilious and Blood streaks Diarrhea/Melena/Hematochezia GI Symptom: Positive for Diarrhea; Negative for Melena or Hematochezia Associated Symptoms Associated Symptoms: Negative for Dysuria, Frequency or Hematuria Narrative Narrative: Patient presents with abdominal pain that began yesterday. Patient states it began rather suddenly. Patient states it has been constant. Patient states her pain is diffuse across her entire abdomen. Patient describes her pain as sharp. Patient admits to some nausea and vomiting. Patient states that she did notice some small blood streaks in her emesis. Patient admits to some diarrhea but denies any melena or hematochezia. Patient denies any dysuria, frequency, or hematuria. Patient denies any fevers or chills. PFSH PFS Medical History Hypertension Home Medications metoprolol succinate 100 mg capsule sprinkle, ext. release 24 hr 100 mg PO DAILY 08/13/22 [History Last Taken Unknown] acetaminophen 650 mg tablet,extended release 650 mg PO Q8H PRN pain #30 tabs 10/26/22 [Rx Last Taken Unknown] ondansetron 4 mg disintegrating tablet 4 mg PO Q8H PRN PRN Nausea #14 tabs 03/30/23 [Rx Last Taken Unknown] prednisone 20 mg tablet 60 mg (3 x 20 mg) PO DAILY #15 TABLETS 03/30/23 [Rx Last Taken Unknown] Allergy/AdvReac Type Severity Reaction Status Date / Time meloxicam [From Mobic] Allergy Hives Verified 03/30/23 03:34 naproxen [From Naprosyn] Allergy Hives Verified 03/30/23 03:34 codeine AdvReac Vomiting Verified 03/30/23 03:34 hydrocodone bitartrate AdvReac Nausea Verified 03/30/23 03:34 [From Vicodin] morphine AdvReac Chest Verified 03/30/23 03:34 tightness Surgical History History of cholecystectomy History of hysterectomy History of tonsillectomy Social History Smoking Status: Former smoker ROS ROS ED Constitutional Constitutional ED: Denies chills or fever(s) Eyes Eyes: Denies blurry vision or change in vision ENT ENT ED: Denies rhinorrhea or sore throat Cardiovascular Cardiovascular: Denies chest pain or palpitations Respiratory/Chest Respiratory/Chest: Denies cough or dyspnea Gastrointestinal Gastrointestinal: Reports abdominal pain, diarrhea, nausea and vomiting; Denies melena Genitourinary Genitourinary ED: Denies dysuria or hematuria Musculoskeletal Musculoskeletal: Denies back pain or neck pain Integumentary Denies abscess or rash Neurologic Neurologic: Denies headache(s) or weakness Allergic/Immunologic Allergic/Immunologic ED: Denies mouth swelling or urticaria EXAM Physical Exam Const Vital Signs: 03/30/23 03:35 03/30/23 03:39 03/30/23 08:49 Temperature 96.0 F L 96.0 F L Temperature Source Temporal Temporal Pulse Rate 104 H 110 H 72 Respiratory Rate 18 18 15 Blood Pressure 172/98 H 172/98 H 124/69 H Blood Pressure Mean 122 122 87 Pulse Ox 96 96 98 Oxygen Delivery Method Room Air Room Air Positive well nourished and well developed General Appearance ED: well developed and NAD HEENT Reports moist mucous membranes Neck supple and no JVD Resp normal respiratory effort and clear to auscultation bilaterally Cardio regular rate and regular rhythm GI non-distended Palpation: soft and tender epigastric, LLQ, RLQ, LUQ, RUQ, periumbilical and suprapubic; Negative for guarding or rebound tenderness present Back/Spine no CVA tenderness Extremity full ROM Neuro CN's II-XII intact bilaterally, moves all extremities and no sensory deficits noted Sensorium / Orientation: alert Motor Exam: strength 5/5 throughout Psych mental status grossly normal MDM MDM MDM Narrative Medical decision making narrative: Differential diagnosis includes bowel obstruction, perforation, gastroenteritis, diverticulitis, pancreatitis, urinary tract infection, ureteral calculus, appendicitis, and pyelonephritis. CBC will be obtained to assess for leukocytosis and anemia. Comprehensive metabolic profile will be obtained to assess for hepatic function, renal function, and electrolyte abnormality. Urinalysis will be obtained to assess for urinary tract infection. CT scan of the abdomen pelvis will be obtained to assess for bowel obstruction, perforation,. And pancreatitis. Lipase will be obtained to assess for pancreatitis. Lab Data Attestation: I reviewed the patient's lab results. Lab results narrative: CBC was reviewed. There is a mild leukocytosis of 14.2. Hemoglobin was stable at 15.6 and hematocrit was 54. Platelets were normal. Comprehensive metabolic profile was reviewed. There is a slight hyperglycemia of 144. Alkaline phosphatase was slightly elevated 137. Remainder is within normal limits. Lipase was reviewed and was normal at 31. Urinalysis was reviewed. There is no evidence of urinary tract infection or hematuria. Labs: Laboratory Results - last 24 hr 03/30/23 03/30/23 05:08 05:10 WBC 14.2 H RBC 5.92 H Hgb 15.6 H Hct 50.4 H MCV 85.1 MCH 26.4 L MCHC 31.0 L RDW Std Deviation 47.7 H RDW Coeff of Basia 15.5 H Plt Count 443 MPV 9.6 Immature Gran % (Auto) 0.500 Neut % (Auto) 77.5 H Lymph % (Auto) 13.8 L Evangeline % (Auto) 6.9 Eos % (Auto) 0.7 Baso % (Auto) 0.6 Absolute Neuts (auto) 11.0 H Absolute Lymphs (auto) 1.96 Nucleated RBC % 0 Sodium 140 Potassium 3.5 Chloride 105 Carbon Dioxide 30.0 Anion Gap 5 BUN 10 Creatinine 0.82 Estim Creat Clear Calc 65.63 Est GFR (MDRD) Af Amer 94 Est GFR (MDRD) Non-Af 78 BUN/Creatinine Ratio 12.2 Glucose 144 H Calcium 9.4 Total Bilirubin 0.40 AST 13 L ALT 21 Alkaline Phosphatase 137 H Total Protein 8.8 H Albumin 4.0 Globulin 4.8 H Albumin/Globulin Ratio 0.8 L Lipase 31 Urine Color Yellow Urine Clarity Clear Urine pH 6.0 Ur Specific [place] 1.025 Urine Protein 30 H Urine Glucose (UA) Normal Urine Ketones Negative Urine Occult Blood 10 H Urine Nitrite Negative Urine Bilirubin Negative Urine Urobilinogen Normal Ur Leukocyte Esterase 25 H Urine RBC 0 SEEN Urine WBC 0-5 SEEN Ur Squamous Epith Cells 0-5 SEEN Ur Transition Epith Cell 0-5 SEEN Urine Bacteria 0 SEEN Hyaline Casts 0-5 SEEN Urine Mucus 2+ Radiography Diagnostic Testing: Clinical Impression(s) from Imaging Studies Abdomen/Pelvis CT 03/30/23 04:54 IMPRESSION: Abnormal circumferential thickening and edema of the terminal ilium, cecum and ascending colon with surrounding mesenteric stranding and mild ascites, consistent with inflammatory bowel disease/Crohn''s disease. No fistula, abscess or free air identified. Electronically Signed: Nash Herrera MD at 7:20 EST , CT scan of the abdomen pelvis was obtained there is abnormal circumferential thickening and edema of the terminal ileum, cecum, and ascending colon with surrounding mesenteric stranding consistent with inflammatory bowel disease or Crohn's disease. This was interpreted by the radiologist was also independently reviewed by myself. Treatment and Re-Evaluation :: Patient was given IV fluids, Bentyl, and Zofran initially due to her allergy to morphine. Patient states she has taken Percocet in the past. Patient was given a dose of oxycodone, Zofran ODT, and prednisone here. Patient was given a prescription for prednisone and Zofran ODT. Patient was instructed to start with a liquid diet and advance as tolerated. Patient states she is scheduled for colonoscopy in beginning of April. Patient was instructed to follow-up with this. Patient was instructed to inform her casino change attendant that this could be Crohn's disease or inflammatory bowel disease. Patient understood and was agreeable with the plan. All questions were answered. Discharge Plan Triage Chief Complaint: Abd Pain ED Provider: Kalia Matthews Dx/Rx/DC Orders Clinical Impression: Abdominal pain, HTN (hypertension) Instructions: ED Abdominal Pain Unkn Cause Fem, ED Crohn's Disease Prescriptions: New prednisone 20 mg tablet 60 mg PO DAILY Qty: 15 0RF Continued ondansetron 4 mg tablet,disintegrating 4 mg PO Q8H PRN PRN (Reason: Nausea) Qty: 14 0RF No Action metoprolol succinate 100 mg Capsule,Sprinkle,Er 24hr 100 mg PO DAILY acetaminophen 650 mg tablet extended release 650 mg PO Q8H PRN (Reason: pain) Qty: 30 0RF Stand Alone Forms: ED Work / School Excuse Primary Care Provider: Rosana Bryant Referrals: Rosana Bryant MD [Primary Care Provider] - 3-5 Days Activity Restrictions/Additional Instructions: Your CAT scan shows the possibility of Crohn's disease. Follow-up with your doctor and casino change attendant for further evaluation of this. Disposition Disposition: Home, Self Care Discharge Date/Time: 03/30/23 08:52
--- NOTE | 2023-03-30 04:54 | CT_ITS ---
EXAM: CT ABDOMEN AND PELVIS WITH INTRAVENOUS CONTRAST CLINICAL INDICATION: Abdominal pain -- IV PO Contrast TECHNIQUE: Helically acquired images were obtained of the abdomen and pelvis with intravenous contrast. This CT exam was performed using one or more of the following dose reduction techniques: automated exposure control, adjustment of the mA and/or kV according to patient size, and/or use of iterative reconstruction technique. CONTRAST: Oral and amp; IV Gastrografin and amp; 100mL Isovue-370 RADIATION DOSE: Total DLP: 1241.47 mGy-cm. COMPARISON: CT abdomen and pelvis of 03/17/2018. CT chest, abdomen and pelvis of 12/06/2021. FINDINGS: LOWER THORAX: Visualized lung bases are clear except for incidental dependent atelectasis. No coronary artery calcification is visualized. No significant pericardial effusion. ABDOMEN: LIVER: Mild fatty infiltration of the liver. Portal veins enhance normally. No focal intrahepatic abnormality. GALLBLADDER AND BILE DUCTS: Cholecystectomy. Common bile duct is normal in caliber for postcholecystectomy patient. No calcified common duct stone. PANCREAS: Unremarkable. No focal cystic or solid mass. No findings of acute pancreatitis. SPLEEN: Unremarkable. Normal size without focal cystic or solid mass. ADRENALS: Unremarkable. No nodules. KIDNEYS AND URETERS: Unremarkable. Normal renal size and position. No hydronephrosis. No renal or obstructing ureteral stones. STOMACH AND BOWEL: No gastric mural thickening or periduodenal inflammatory changes. A long segment of terminal ilium shows continuous circumferential hypodense mural thickening/edema with surrounding mesenteric stranding and associated luminal narrowing. Proximal to the thick-walled segment, the small bowel measures up to 2.9 cm in transverse diameter, and contains a small amount of fecalized material. The wall of the cecum and ascending colon is also mildly thickened, partially due to edema, but there is also fat attenuation within the wall of the ascending colon as can be seen with healed inflammatory bowel disease. Minimal colonic diverticulosis is present without evidence for diverticulitis. PELVIS: APPENDIX: Normal. No evidence of acute appendicitis. BLADDER: Unremarkable. REPRODUCTIVE: Absent uterus. Surgical clips in each adnexa. No adnexal mass. ABDOMEN and PELVIS: INTRAPERITONEAL SPACE: In addition to inflammatory fat stranding about the terminal ilium and proximal colon, mild ascites is present including fluid in the right paracolic gutter, right adnexa and interloop regions. No fistula is noted. No extravasation of contrast. No abscess. No free air. BONES/JOINTS: Degenerative spurring about the lower thoracic disc spaces. Degenerative spurring about the L1/2, L2/3 and L5/S1 disc spaces. Lumbar facet arthritis. No findings of sacroiliitis. SOFT TISSUES: Tiny fat-filled umbilical hernia. VASCULATURE: Normal caliber abdominal aorta. SMA and [place] enhance normally. LYMPH NODES: Scattered small mesenteric lymph nodes are present, nonspecific. No para-aortic adenopathy. CT/Abdomen/Pelvis WITH Contrast IMPRESSION: Abnormal circumferential thickening and edema of the terminal ilium, cecum and ascending colon with surrounding mesenteric stranding and mild ascites, consistent with inflammatory bowel disease/Crohn''s disease. No fistula, abscess or free air identified. Electronically Signed: Nash Herrera MD at 7:20 EST ,
[2023-03-30 05:13] LABS: Bacteria 0 SEEN /hpf (None Seen); Red Blood Cells-Urine 0 SEEN /hpf (0-5)
[2023-03-30] MEDS: 0.9% Normal Saline (1000mL) 1,000 ML 1000 ML IV (05:13)
[2023-03-30] MEDS: Dicyclomine 20 MG/2 ML Vial IM (05:14)
[2023-03-30] MEDS: Ondansetron 4 MG/2 ML Vial IV (05:14)
[2023-03-30 05:23] LABS: Glucose, Dipstick Normal (Normal); Ketone-Dipstick Negative (Negative); Leukocyte Esterase-Dipstick 25 /ul (Negative); Nitrite-Dipstick Negative (Negative); Occult Blood-Urine 10 /ul (Negative); Protein-Dipstick 30 mg/dl (Negative); Specific Gravity, Urine 1.025 (1.002-1.030); Urine Bilirubin Dipstick Negative (Negative); Urine Urobilinogen Normal (Normal)
[2023-03-30 05:25] LABS: Absolute Lymphocyte Count 1.96 X10^3/uL (0.83-4.51); Basophil# 0.09 X10^3/uL; Basophil% 0.6 % (0-1); Eosinophils% 0.7 % (0-5); Hematocrit 50.4 % (37-47); Hemoglobin 15.6 g/dL (12.0-15.0); Lymphocyte # 1.96 X10^3/ul (0.83-4.51); Lymphocyte % 13.8 % (19-41); Mean Corpuscular Hgb 26.4 pg (27.0-32.0); Mean Corpuscular Volume 85.1 fL (81-99); Mean Platelet Vol. 9.6 fl (6.2-12.0); Monocyte# 0.98 X10^3/uL; Monocyte% 6.9 % (0-10); NRBC Flagged by Analyzer 0 % (0-5); Neutrophil # 10.98 X10^3/uL (2.7-7.7); Neutrophil % 77.5 % (47-70); Platelet Count 443 K/mm3 (150-450); RBC Distribution Width CV 15.5 % (11.6-14.6); RBC Distribution Width SD 47.7 fl (35.1-43.9); Red Blood Count 5.92 M/mm3 (4.2-5.4); White Blood Count 14.2 K/mm3 (4.4-11.0)
[2023-03-30 05:35] LABS: Color, Urine Yellow (Yellow); Urine Clarity Clear (Clear)
[2023-03-30 05:47] LABS: ALB/GLOB Ratio 0.8 RATIO (0.9-2.4); AST(SGOT) 13 U/L (15-37); Alanine Aminotransfer ALT/SGPT 21 U/L (13-56); Alkaline Phosphatase 137 U/L (45-117); Anion Gap 5 (5-15); BUN 10 mg/dL (7-18); BUN/Creat Ratio 12.2 RATIO (10-20); Calcium,Total 9.4 mg/dL (8.5-10.1); Chloride 105 mmol/L (98-107); Creatinine, Serum 0.82 mg/dL (0.55-1.02); EST Glomerular Filtration Rate 78 mL/min (>60); Est Glom Filt Rate - Afr Amer 94 mL/min (>60); Estimated Creatinine Clearance 65.63 ml/min; Globulin 4.8 g/dL (2.2-4.2); Glucose 144 mg/dL (74-106); Lipase 31 U/L (13-75); Potassium 3.5 mmol/L (3.5-5.1); Protein, Total 8.8 g/dL (6.4-8.2); Sodium Level 140 mmol/L (136-145)
[2023-03-30 05:50] LABS: Hyaline Cast 0-5 SEEN /lpf (0-5); Mucous, Urine 2+ /hpf (<or=2+); Squamous Epithelial Cells - UA 0-5 SEEN /hpf (5-10); Transitional Epithelial - Ur 0-5 SEEN /hpf (0-5); White Blood Cells 0-5 SEEN /hpf (0-5)
[2023-03-30] MEDS: oxyCODONE 5 MG Tablet PO (08:45)
[2023-03-30] MEDS: Ondansetron ODT 4 MG Tablet PO (08:46)
[2023-03-30] MEDS: predniSONE 20 MG Tablet 60 MG PO (08:46)
[2023-03-30 08:49] VITALS: BP 124/69; PULSE 72; RESP 15; O2SAT 98
== END 2023-03-30 08:52 | disposition home or self-care (01) ==
PROVIDERS: Emergency Provider Emergency Medicine; PCP Internal Medicine; Visit Provider Emergency Medicine
DX: R10.9 Unspecified abdominal pain (principal); I10 Essential (primary) hypertension; Z87.891 Personal history of nicotine dependence
CPT/HCPCS: 74177; 80053; 81001; 83690; 85025; 96361; 96372; 96374; 99284; J7030; Q9967; A4216; J2405

== ENCOUNTER 2023-07-18 21:39 | Emergency (ER) | payer MEDICAID, SELFPAY ==
[2023-07-18 21:40] VITALS: BP 217/109; PULSE 86; RESP 16; TEMP 35.6; O2SAT 97
[2023-07-18 21:41] VITALS: BMI 36.3
[2023-07-18 22:21] VITALS: PULSE 76; RESP 18; O2SAT 98
[2023-07-18 22:27] VITALS: BP 188/105; PULSE 75; RESP 16
[2023-07-18 23:09] VITALS: BP 181/88; PULSE 84; RESP 16; TEMP 36.6; O2SAT 99
--- NOTE | 2023-07-18 23:14 | EX.ED.DYSGE1 ---
HPI History of Present Illness Chief Complaint: Hypertension Informant: patient Narrative Narrative: Patient is a 53-year-old female with past medical history of hypertension. She states that she has been taking her medications as directed and denies any excessive stimulant use or illicit drug use. She reports that she got into an argument with her daughter this evening and then noticed her blood pressure was running high. She states that there is no headache or chest pain associated with this but she was concerned because it had been higher than it normally is especially as she took her nighttime medication and therefore presents for evaluation. [facility] Medical History Hypertension Home Medications metoprolol succinate 100 mg capsule sprinkle, ext. release 24 hr 100 mg PO DAILY 08/13/22 [History Last Taken Unknown] losartan 25 mg tablet 25 mg PO DAILY 07/18/23 [History Last Taken Unknown] Allergy/AdvReac Type Severity Reaction Status Date / Time meloxicam [From Mobic] Allergy Hives Verified 07/18/23 21:40 naproxen [From Naprosyn] Allergy Hives Verified 07/18/23 21:40 codeine AdvReac Vomiting Verified 07/18/23 21:40 hydrocodone bitartrate AdvReac Nausea Verified 07/18/23 21:40 [From Vicodin] morphine AdvReac Chest Verified 07/18/23 21:40 tightness Surgical History History of cholecystectomy History of hysterectomy History of tonsillectomy Social History Smoking Status: Former smoker ROS ROS ED Constitutional Constitutional ED: Denies chills or fever(s) Eyes Eyes: Denies change in vision or diplopia ENT ENT ED: Denies sore throat Cardiovascular Cardiovascular: Denies chest pain Respiratory/Chest Respiratory/Chest: Denies cough or dyspnea Gastrointestinal Gastrointestinal: Denies abdominal pain, diarrhea, nausea or vomiting Genitourinary Genitourinary ED: Denies dysuria Musculoskeletal Musculoskeletal: Denies myalgias Integumentary Denies rash Neurologic Neurologic: Denies headache(s), paresthesias or weakness Hematologic/Lymphatic Hematologic/Lymphatic: Denies easy bleeding or easy bruising EXAM Physical Exam Const Vital Signs: 07/18/23 21:40 07/18/23 22:21 07/18/23 22:27 Temperature 96.1 F L Temperature Source Temporal Pulse Rate 86 76 75 Respiratory Rate 16 18 16 Blood Pressure 217/109 H 188/105 H Blood Pressure Mean 145 132 Pulse Ox 97 98 Oxygen Delivery Method Room Air Room Air 07/18/23 23:09 Temperature 97.9 F Temperature Source Pulse Rate 84 Respiratory Rate 16 Blood Pressure 181/88 H Blood Pressure Mean 119 Pulse Ox 99 Oxygen Delivery Method Positive well nourished and well developed General Appearance ED: well developed HEENT HEENT Narrative: Normocephalic atraumatic Eyes PERRL and EOMs intact bilaterally Neck supple Resp normal respiratory effort and clear to auscultation bilaterally Cardio regular rate and regular rhythm GI non-tender, non-distended and no masses Auscultation: normoactive bowel sounds Palpation: soft Extremity normal to inspection Neuro oriented x3, CN's II-XII intact bilaterally and no sensory deficits noted Sensorium / Orientation: alert Motor Exam: strength 5/5 throughout Psych mental status grossly normal Skin no rashes or lesions noted MDM MDM MDM Narrative Medical decision making narrative: Patient arrived to the ER hypertensive but without any type of medication began to spontaneously improve her blood pressure. With concern for endorgan damage such as acute coronary syndrome or acute kidney injury in the differential basic blood work and EKG were ordered. However patient states that she has noticed that her blood pressure has been slowly improving without any type of medication and therefore she believes it is related to the stress that accompanied to her recent argument. She states that she does not have chest pain abdominal pain headache or change in vision she does not feel the need for workup. Therefore the patient is denying any symptoms consistent with endorgan damage and she has had spontaneous improvement of her hypertension I do not feel need to perform any further testing and she is otherwise safe for discharge History & Record Review Discussion w/independent historian: Patient Discharge Plan Triage Chief Complaint: Hypertension ED Provider: Trey Carey Dx/Rx/DC Orders Clinical Impression: Accelerated hypertension Instructions: ED Hypertension, Established Prescriptions: No Action metoprolol succinate 100 mg Capsule,Sprinkle,Er 24hr 100 mg PO DAILY losartan 25 mg tablet 25 mg PO DAILY Primary Care Provider: Rosana Bryant Referrals: Rosana Bryant MD [Primary Care Provider] - Disposition Disposition: Home, Self Care Discharge Date/Time: 07/18/23 23:10
== END 2023-07-18 23:10 | disposition home or self-care (01) ==
LOC: ED 22:42
PROVIDERS: Emergency Provider Emergency Medicine; PCP Internal Medicine; Visit Provider Emergency Medicine
DX: I10 Essential (primary) hypertension (principal); Z87.891 Personal history of nicotine dependence; Z79.899 Other long term (current) drug therapy
CPT/HCPCS: 99282; A4216

== ENCOUNTER → 2024-01-06 | Outpatient (CLI) | payer MEDICAID, SELFPAY ==
[2024-01-06 09:18] LABS: Absolute Neutrophil Count 4.6 X10^3/uL (2.0-7.7); Basophil# 0.07 X10^3/uL; Eosinophil# 0.12 X10^3/uL; Eosinophils% 1.8 % (0-5); Hematocrit 46.7 % (37-47); Hemoglobin 14.7 g/dL (12.0-15.0); Lymphocyte % 20.9 % (19-41); Mean Corp Hgb Conc 31.5 g/dL (32-36); Mean Corpuscular Hgb 26.4 pg (27.0-32.0); Mean Platelet Vol. 9.6 fl (6.2-12.0); Monocyte# 0.55 X10^3/uL; Monocyte% 8.2 % (0-10); NRBC Flagged by Analyzer 0 % (0-5); Neutrophil # 4.55 X10^3/uL (2.7-7.7); Platelet Count 388 K/mm3 (150-450); RBC Distribution Width SD 45.9 fl (35.1-43.9); Red Blood Count 5.56 M/mm3 (4.2-5.4); White Blood Count 6.7 K/mm3 (4.4-11.0)
[2024-01-06 09:24] LABS: Erythrocyte Sedimentation Rate 25 mm/hr (0-30)
[2024-01-06 09:53] LABS: ALB/GLOB Ratio 0.8 RATIO (0.9-2.4); AST(SGOT) 12 U/L (15-37); Alanine Aminotransfer ALT/SGPT 19 U/L (13-56); Albumin, Serum 3.6 g/dL (3.2-5.0); Alkaline Phosphatase 130 U/L (45-117); Anion Gap 8 (5-15); BUN 13 mg/dL (7-18); BUN/Creat Ratio 15.2 RATIO (10-20); Calcium,Total 9.3 mg/dL (8.5-10.1); Chloride 106 mmol/L (98-107); Creatinine, Serum 0.85 mg/dL (0.55-1.02); EST Glomerular Filtration Rate 74 mL/min (>60); Est Glom Filt Rate - Afr Amer 89 mL/min (>60); Free T3 2.7 pg/mL (2.18-3.98); Globulin 4.3 g/dL (2.2-4.2); Glucose 124 mg/dL (74-106); LDH 166 U/L (84-246); Potassium 3.7 mmol/L (3.5-5.1); Protein, Total 7.9 g/dL (6.4-8.2); Sodium Level 139 mmol/L (136-145); T4 Free Direct 1.04 ng/dL (0.76-1.46)
[2024-01-09 00:06] LABS: ACCA 32 units (0-90); ALCA 6 units (0-60); AMCA 8 units (0-100); Albumin 3.9 g/dL (2.9-4.4); Alpha-1-Globulins 0.3 g/dL (0.0-0.4); Alpha-2-Globulins 0.7 g/dL (0.4-1.0); Cytoplasmic Ab (C-ANCA) <1:20 titer (Neg:<1:20); Endomysial Antibody IgA Negative (Negative); Gamma Globulin 1.2 g/dL (0.4-1.8); Immunoglobulin A 419 mg/dL (87-352); Immunoglobulin E 4 IU/mL (6-495); Immunoglobulin G 1313 mg/dL (586-1602); Immunoglobulin M 111 mg/dL (26-217); PROEL- TOTAL PROTEIN 7.3 g/dL (6.0-8.5); Perinuclear Ab (P-ANCA) <1:20 titer (Neg:<1:20); gASCA 23 units (0-50); t-Transglutaminase IgA <2 U/mL (0-3)
[2024-01-09 04:07] LABS: Anti-Centromere B Ab <0.2 AI (0.0-0.9); Anti-Chromatin <0.2 AI (0.0-0.9); Anti-Jo <0.2 AI (0.0-0.9); Anti-Scleroderma-70 AB <0.2 AI (0.0-0.9); Anti-dsDNA Ab <1 IU/mL (0-9); Beef <0.10 kU/L (Class 0); Chocolate <0.10 kU/L (Class 0); Codfish <0.10 kU/L (Class 0); Corn <0.10 kU/L (Class 0); Egg, Whole <0.10 kU/L (Class 0); Milk (Cow) <0.10 kU/L (Class 0); Mussels <0.10 kU/L (Class 0); Peanut <0.10 kU/L (Class 0); Pork <0.10 kU/L (Class 0); RNP Ab <0.2 AI (0.0-0.9); SJOGREN'S Anti-SS-A test < 0.2 AI (0.0-0.9); SJOGREN'S Anti-SS-B test < 0.2 AI (0.0-0.9); Salmon <0.10 kU/L (Class 0); Shrimp <0.10 kU/L (Class 0); Smith Ab <0.2 AI (0.0-0.9); Soybean <0.10 kU/L (Class 0); Tuna <0.10 kU/L (Class 0); Wheat <0.10 kU/L (Class 0)
== END | disposition home or self-care (01) ==
LOC: LAB 08:29
PROVIDERS: PCP Internal Medicine; Referring Provider Student in an Organized Health Care Education/Training Program; Visit Provider Student in an Organized Health Care Education/Training Program
DX: R19.7 Diarrhea, unspecified (principal)
CPT/HCPCS: 86037 ×3; 36415; 80053; 82784; 82785; 83516; 83615; 84165; 84439; 84443; 84481; 85025; 85652; 86003; 86005; 86036; 86140; 86225; 86235; 86255; 86256; 86334; 86671

== ENCOUNTER → 2024-01-07 | Outpatient (CLI) | payer MEDICAID, SELFPAY ==
[2024-01-10 00:07] LABS: Pancreatic Elastase, Fecal > 800 (>200)
[2024-01-10 14:10] LABS: Calprotectin, Stool 14 ug/g (0-120)
== END | disposition home or self-care (01) ==
LOC: LABSPEC 07:09
PROVIDERS: PCP Internal Medicine; Referring Provider Student in an Organized Health Care Education/Training Program; Visit Provider Student in an Organized Health Care Education/Training Program
DX: K58.9 Irritable bowel syndrome, unspecified (principal); R19.7 Diarrhea, unspecified
CPT/HCPCS: 82653; 83630; 83993; 87177; 87209; 87329; 87493; 87506

== ENCOUNTER → 2024-06-08 | Outpatient (CLI) | payer MEDICAID, SELFPAY ==
[2024-06-08 09:32] LABS: AST(SGOT) 18 U/L (<=31); Alanine Aminotransfer ALT/SGPT 10 U/L (<=34); Albumin, Serum 4.3 g/dL (3.5-5.0); Alkaline Phosphatase 139 U/L (35-104); Bilirubin, Direct 0.15 mg/dL (0.00-0.30); Globulin 3.6 g/dL (2.2-4.2); Protein, Total 7.9 g/dL (5.9-8.4); Total Bilirubin 0.36 mg/dL (0.00-1.30)
[2024-06-09 15:08] LABS: Anti-Mitochondrial AB <20.0 Units (0.0-20.0)
[2024-06-09 17:07] LABS: Anti-Smooth Muscle ABS 7 Units (0-19); Cytoplasmic Ab (C-ANCA) <1:20 titer (Neg:<1:20); GGTP 10 IU/L (0-60); Perinuclear Ab (P-ANCA) <1:20 titer (Neg:<1:20)
== END | disposition home or self-care (01) ==
LOC: LAB 07:52
PROVIDERS: PCP Internal Medicine; Referring Provider Nurse Practitioner Acute Care; Visit Provider Nurse Practitioner Acute Care
DX: R19.7 Diarrhea, unspecified (principal); K59.00 Constipation, unspecified; R15.9 Full incontinence of feces; R10.9 Unspecified abdominal pain
CPT/HCPCS: 36415; 80076; 82977; 83516; 86037; 86140

== ENCOUNTER → 2024-06-16 | Outpatient (CLI) | payer MEDICAID, SELFPAY ==
--- NOTE | 2024-06-16 09:56 | US_ITS ---
PROCEDURE: ABD LIMITED W/ ELASTOGRAPHY REASON FOR EXAM: FATTY LIVER COMPARISON: March 30, 2023. TECHNIQUE: Right upper quadrant abdominal ultrasound. Sonya ElastQ Imaging shear wave elastography for non-invasive assessment of liver tissue stiffness. Sonya EPIQ Elite. FINDINGS: LIVER: Size: Unremarkable Length: 15.4 cm Echotexture: Diffusely echogenic suggesting fatty infiltration Contour: Normal Lesions: None identified Elastography: EQI Med: 10.6 kPa EQI Med Ravi: 1.87 m/s IQR/Med: 15 %* GALLBLADDER: Surgically absent. COMMON BILE DUCT: Normal it measures 6 mm.. PANCREAS: Obscured by bowel gas. Visualized portions of the right kidney are unremarkable. No right upper quadrant ascites. US/ABD Limited w/ Elastography IMPRESSION: MODERATE TO SEVERE HEPATIC FIBROSIS Diffuse fatty infiltration of the liver. Reference Values: SRU <1.37 m/s (5.7kPa): No to mild fibrosis 1.37 m/s - 2.2 m/s: Moderate to severe fibrosis >2.2 m/s (15kPa): Significant fibrosis / cirrhosis METAVIR Score F2 or higher: 1.34 m/s (5.7kPa) F3 or higher: 1.55 m/s (7.3kPa) F4: 1.80 m/s (10kPa) * If the IQR/Med is >30%, the variance in the measurements is a large and the a ccuracy of the measurement may be in question. Reading Location: [place] [id number]
== END | disposition home or self-care (01) ==
LOC: US 09:49
PROVIDERS: PCP Internal Medicine; Referring Provider Nurse Practitioner Acute Care; Visit Provider Nurse Practitioner Acute Care
DX: K76.0 Fatty (change of) liver, not elsewhere classified (principal); R10.9 Unspecified abdominal pain; R15.9 Full incontinence of feces; R15.2 Fecal urgency; K59.01 Slow transit constipation; R19.7 Diarrhea, unspecified
CPT/HCPCS: 76705; 76981

== ENCOUNTER → 2024-07-23 | Outpatient (CLI) | payer MEDICAID, SELFPAY ==
--- NOTE | 2024-07-23 12:33 | RAD_ITS ---
PROCEDURE: ABDOMEN SINGLE VIEW 07/23/2024 REASON FOR EXAM: DAY 3 SITZ MARKER TECHNIQUE: Single view abdomen. COMPARISON: CT scan on 03/30/2023. FINDINGS: Four Sitz markers are noted at the topography of the rectosigmoid colon. Mild amount of fecal residue in the large bowels. Bilateral tubal clips are again noted in the pelvis. Normal visualized lung bases. There is an unremarkable bowel gas pattern. There is no demonstrated free abdominal air. Normal visualized liver. Normal visualized spleen. Normal visualized kidneys. The soft tissue structures of the pelvis are unremarkable. Mild diffuse spondylosis. RAD/Abdomen Single View IMPRESSION: Four Sitz markers are noted at the topography of the rectosigmoid colon. Mild amount of fecal residue in the large bowels. Bilateral tubal clips are again noted in the pelvis. Reading Location[facility] [id number]
== END | disposition home or self-care (01) ==
LOC: RAD 12:13
PROVIDERS: PCP Internal Medicine; Referring Provider Nurse Practitioner Acute Care; Visit Provider Nurse Practitioner Acute Care
DX: K59.01 Slow transit constipation (principal); R15.9 Full incontinence of feces; R15.2 Fecal urgency; R19.7 Diarrhea, unspecified; R10.9 Unspecified abdominal pain
CPT/HCPCS: 74018

== ENCOUNTER → 2024-07-25 | Outpatient (CLI) | payer MEDICAID, SELFPAY ==
--- NOTE | 2024-07-25 08:25 | RAD_ITS ---
PROCEDURE: ABDOMEN SINGLE VIEW 07/25/2024 REASON FOR EXAM: DAY 5 SITZ MARKER TECHNIQUE: Supine views of abdomen. COMPARISON: Radiograph of the abdomen dated 07/23/2024 FINDINGS: Bowel gas: Nonobstructive bowel gas pattern. Mild stool burden within the large bowel. No Sitz marker are demonstrated. Bilateral tubal clips are again identified. Calcifications: No suspicious calcifications. Bones: The bones are unremarkable. Other: RAD/Abdomen Single View IMPRESSION: No Sitz markers are demonstrated. Reading Location: [place]
== END | disposition home or self-care (01) ==
LOC: RAD 08:23
PROVIDERS: PCP Internal Medicine; Referring Provider Nurse Practitioner Acute Care; Visit Provider Nurse Practitioner Acute Care
DX: K59.01 Slow transit constipation (principal); R15.9 Full incontinence of feces; R15.2 Fecal urgency; R19.7 Diarrhea, unspecified; R10.9 Unspecified abdominal pain
CPT/HCPCS: 74018

== ENCOUNTER → 2024-08-07 | Outpatient (CLI) | payer MEDICAID, SELFPAY ==
[2024-08-10 08:07] LABS: Calprotectin, Stool 11 ug/g (0-120)
== END | disposition home or self-care (01) ==
LOC: LABSPEC 07:33
PROVIDERS: PCP Internal Medicine; Referring Provider Nurse Practitioner Acute Care; Visit Provider Nurse Practitioner Acute Care
DX: R10.9 Unspecified abdominal pain (principal); R15.9 Full incontinence of feces; R15.2 Fecal urgency; R19.7 Diarrhea, unspecified
CPT/HCPCS: 83993; 87493

== ENCOUNTER → 2024-08-18 | Outpatient (CLI) | payer MEDICAID, SELFPAY ==
[2024-08-18 07:34] LABS: Absolute Lymphocyte Count 1.63 X10^3/uL (0.83-4.51); Absolute Neutrophil Count 4.9 X10^3/uL (2.0-7.7); Basophil# 0.07 X10^3/uL; Basophil% 0.9 % (0-1); Eosinophil# 0.16 X10^3/uL; Eosinophils% 2.2 % (0-5); Hematocrit 42.4 % (37-47); Hemoglobin 13.9 g/dL (12.0-15.0); Lymphocyte # 1.63 X10^3/ul (0.83-4.51); Lymphocyte % 22.1 % (19-41); Mean Corp Hgb Conc 32.8 g/dL (32-36); Mean Corpuscular Hgb 28.1 pg (27.0-32.0); Mean Corpuscular Volume 85.7 fL (81-99); Mean Platelet Vol. 9.5 fl (6.2-12.0); Monocyte% 8.1 % (0-10); NRBC Flagged by Analyzer 0 % (0-5); Neutrophil # 4.89 X10^3/uL (2.7-7.7); Neutrophil % 66.3 % (47-70); Platelet Count 342 K/mm3 (150-450); RBC Distribution Width SD 46.7 fl (35.1-43.9); Red Blood Count 4.95 M/mm3 (4.2-5.4); White Blood Count 7.4 K/mm3 (4.4-11.0)
[2024-08-18 08:13] LABS: ALB/GLOB Ratio 1.1 RATIO (0.9-2.4); AST(SGOT) 16 U/L (<=31); Alanine Aminotransfer ALT/SGPT 8 U/L (<=34); Albumin, Serum 3.9 g/dL (3.5-5.0); Alkaline Phosphatase 123 U/L (35-104); Anion Gap 9 (5-15); BUN 12 mg/dL (4-19); BUN/Creat Ratio 17.3 RATIO (10-20); Chloride 106 mmol/L (98-108); Creatinine, Serum 0.68 mg/dL (0.70-1.20); EST Glomerular Filtration Rate 103 (>60); Globulin 3.5 g/dL (2.2-4.2); Glucose 117 mg/dL (70-99); Potassium 4.2 mmol/L (3.3-5.1); Protein, Total 7.4 g/dL (5.9-8.4); Sodium Level 141 mmol/L (133-145); Total Bilirubin 0.29 mg/dL (0.00-1.30)
== END | disposition home or self-care (01) ==
LOC: LAB 07:06
PROVIDERS: PCP Internal Medicine; Referring Provider Nurse Practitioner Acute Care; Visit Provider Nurse Practitioner Acute Care
DX: K76.0 Fatty (change of) liver, not elsewhere classified (principal); K59.01 Slow transit constipation; I10 Essential (primary) hypertension; R12 Heartburn
CPT/HCPCS: 36415; 80053; 85025; 85610

== ENCOUNTER → 2024-09-14 | Outpatient (CLI) | payer MEDICAID, SELFPAY ==
--- NOTE | 2024-09-14 08:31 | RAD_ITS ---
PROCEDURE: L/S SPINE MIN 4 VIEWS 09/14/2024 REASON FOR EXAM: LUMBAR STRAIN TECHNIQUE: Standing AP view(s) of the thoracic and lumbar spine. COMPARISON: None. FINDINGS: Mildly exaggerated lumbar lordosis. Mild S shaped degenerative scoliosis. There are diffuse spondylotic changes. Findings are demonstrated to by diffuse disc space narrowing, osteophyte formation and degenerative endplate sclerosis. There is diffuse facet joint arthropathy with secondary bilateral neural foramina narrowing. No fracture or dislocation is seen. No aggressive lytic or blastic bony lesion is noted. RAD/L/S Spine Min 4 Views IMPRESSION: Spondylosis. No pars defect on the oblique images. Reading Location: [place]
== END | disposition home or self-care (01) ==
PROVIDERS: PCP Internal Medicine; Referring Provider Chiropractor; Visit Provider Chiropractor
DX: S33.5XXA Sprain of ligaments of lumbar spine, initial encounter (principal); X58.XXXA Exposure to other specified factors, initial encounter
CPT/HCPCS: 72110

== ENCOUNTER → 2024-09-30 | Outpatient (CLI) | payer MEDICAID, SELFPAY ==
--- NOTE | 2024-09-30 06:42 | CT_ITS ---
PROCEDURE: ABDOMEN/PELVIS WITH CONTRAST 09/30/2024 REASON FOR EXAM: ABDOMINAL PAIN TECHNIQUE: ABDOMEN/PELVIS WITH CONTRAST Coronal and Sagittal reconstruction series were provided. CONTRAST: Isovue-350 VOLUME: 100 mL Patient ingested oral contrast. One or more dose reduction techniques were used (e.g., Automated exposure control, adjustment of the mA and/or kV according to patient size, use of iterative reconstruction technique. RADIATION DOSE SUMMARY: CTDlvol: 21.15 mGy DLP: 1129 mGycm COMPARISON: CT scan on 03/30/2023. FINDINGS: Mild hepatic steatosis. Prior cholecystectomy. Diffuse thickening of the stomach suggestive of gastritis. Prior hysterectomy. Mild diffuse thickening of the sigmoid colon, probably inflammatory pathology. Diffuse colonic diverticulosis. Fat containing umbilical hernia without incarceration. The visualized lung bases are unremarkable. Normal extrahepatic biliary system. Normal spleen. Normal pancreas. Normal bilateral adrenal glands. Normal size of the right kidney. There is no right renal mass. There are no right renal calculi. There is no right hydronephrosis. Normal visualized right ureter. Normal size of the left kidney. There is no left renal mass. There are no left renal calculi. There is no left hydronephrosis. Normal visualized left ureter. Normal small intestine. The appendix is visualized and appears normal. There is no demonstrated peritoneal fluid. Normal abdominal aorta. Normal inferior vena cava. Normal retroperitoneum. Normal urinary bladder. There is no pelvic mass lesion or lymphadenopathy. There is no pelvic fluid. CT/Abdomen/Pelvis WITH Contrast IMPRESSION: Mild hepatic steatosis. Prior cholecystectomy. Diffuse thickening of the stomach suggestive of gastritis. Prior hysterectomy. Mild diffuse thickening of the sigmoid colon, probably inflammatory pathology. Diffuse colonic diverticulosis. Fat containing umbilical hernia without incarceration. Reading Location[facility] [address]
--- OUTSIDE RECORDS SUMMARY | 2024-09-30 07:01 | XMS RPT_ITS | CCD ---
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 Name Role Phone Julita Collins MD Primary Care Provider KARINA MCKEE, DR JULITA Fernandez Primary Care Physician Julita Collins MD Primary Care Provider Julita Collins MD Primary Care Provider Julita Collins MD Primary Care Provider HYUN MCKEE, RAI Gonzalez Attending Unavail xin COLLINS MD, DR JULITA Fernandez Primary Care Shilpi MURRAY MD, GERA Curry Attending Unavailable KARINA MCKEE, DR JULITA Fernandez Primary Care Shilpi PEREZ MD, ISABELLA Attending Nomi COLLINS MD, DR JULITA Fernandez Primary Care Shilpi PURVIS MD, RAI Gonzalez Attending Unavail xin COLLINS MD, DR JULITA Fernandez Primary Care JULITA Olea Primary Care Unavailable LUCIA CURTIS Referring Unavailable LUCIA CURTIS Attending Unavailable LUCIA CURTIS Admitting Unavailable Julita Collins MD Primary Care Provider Lavonne Seay PA-C Unavailable 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 Julita Collins MD Primary Care Provider Dr. Julita Collins MD Referring Provider Alexandru WUCJeannette Attending Provider Alexandru MENDOZA-CJeannette Referring Provider Karina MCKEE, Dr. Julita Primary Care Provider Alexandru CAR RUNNER-C, Jeannette Attending Provider Karina MCKEE, Dr. Wayne Referring Provider Manuel MCKEE, Dr. Shah Attending Provider Winnie PANDA, Dr. Corado Attending Provider Winnie OR, Dr. Corado Referring Provider Ganta, Julita Primary Care Unavailable Alexandru, Jeannette Attending Unavailable Alexandru, Jeannette Referring Unavailable Friend, Gio Attending Unavailable Ganta, Julita Primary Care Unavailable Ganta, Ujlita Primary Care Unavailable Alexandru, Jeannette Attending Unavailable Alexandru, Jeannette Referring Unavailable Ganta, Julita Primary Care Unavailable Ganta, Julita Referring Unavailable Alexandru, Jeannette Attending Unavailable Ganta, Julita Primary Care Unavailable Ganta, Julita Referring Unavailable Alexandru, Jeannette Attending Unavailable Ganta, Julita Primary Care Unavailable Ganta, Julita Referring Unavailable Pablo Jackson Attending Unavailable Atanasov, Jocelyn Attending Unavailable Ganta, Julita Primary Care Unavailable Ganta, Julita Referring Unavailable Ganta, Julita Primary Care Unavailable Ganta, Julita Referring Unavailable Alexandru, Jeannette Attending Unavailable Ganta, Julita Primary Care Unavailable Ganta, Julita Referring Unavailable Alexandru, Jeannette Attending Unavailable Ganta, Julita Primary Care Unavailable Alexandru, Jeannette Attending Unavailable Alexandru, Jeannette Referring Unavailable Ganta, Julita Primary Care Unavailable Alexandru, Jeannette Attending Unavailable Alexandru, Jeannette Referring Unavailable Atanasov, Jocelyn Attending Unavailable Ganta, Julita Primary Care Unavailable Atanasov, Jocelyn Referring Unavailable Ganta, Julita Primary Care Unavailable Winnie, Mak Referring Unavailable Winnie, Mak Attending Unavailable Ganta, Julita Primary Care Unavailable Alexandru, Jeannette Referring Unavailable Alexandru, Jeannette Attending Unavailable Ganta, Julita Primary Care Unavailable Alexandru, Jeannette Referring Unavailable Alexandru, Jeannette Attending Unavailable Atanasov, Jocelyn Referring Unavailable Atanasov, Jocelyn Attending Unavailable Ganta, Julita Primary Care Unavailable Ganta, Julita Primary Care Unavailable Alexandru, Jeannette Attending Unavailable Alexandru, Jeannette Referring Unavailable GANTA, JULITA Referring Unavailable GANTA, JULITA Primary Care Unavailable GANTA, JULITA Primary Care Unavailable GANTA, JULITA Referring Unavailable ROBERTA PRITCHARD Attending Unavailable GANTA, JULITA Primary Care Unavailable GANTA, JULITA Referring Unavailable GANTA, JULITA Primary Care Unavailable GANTA, JULITA Primary Care Unavailable GANTA, JULITA Attending Unavailable GANTA, JULITA Referring Unavailable GANTA, JULITA Primary Care Unavailable Allergies Allergy Classification Reported Allergen(s) Allergy Type Date of Onset Reaction(s) Facility Acetaminophen / HYDROcodone (1 source) Acetaminophen / HYDROcodone Drug Allergy 5 GI Upset [facility] Work Phone: Corticosteroids (1 source) predniSONE Drug Allergy 0 Hives, Shortness of Breath [facility] NSAIDs (2 sources) meloxicam Drug Allergy 0 Hives, GI Upset [facility] Opioid Agonists (1 source) Codeine Drug Allergy 0 [facility] (20 sources) Acetaminophen / HYDROcodone; Translations: [acetaminophen-hy drocodone] Drug Allergy 5 GI Upset [facility] Work Phone: (20 sources) Codeine; Translations: [CODEINE] Drug Allergy 0 [facility] (20 sources) meloxicam; Translations: [meloxicam] Drug Allergy 0 [facility] (20 sources) Naproxen; Translations: [facility]OXEN] [facility] ([facility] predniSONE; Translations: [PREDNISONE] Drug Allergy 0 Hives, Shortness of Breath [facility] Work Phone: (16 sources) Morphine; Translations: [morphine] Drug Allergy 2 Chest tightness [facility] (13 sources) HYDROcodone; Translations: [hydrocodone bitartrate] Drug Allergy 2 Nausea [facility] (1 source) Codeine Drug Allergy 5 [facility] (1 source) meloxicam Drug Allergy 5 [facility] (1 source) Morphine Drug Allergy 5 [facility] (1 source) Naproxen Drug Allergy 5 [facility] Medications Current Medications Medication Drug Class(es) Dates Sig (Normalized) Sig (Original) acetaminophen 500 mg oral tablet (20 sources) Start: 06-17-2023 take 2 tablets by mouth every eight hours as needed for pain acetaminophen (TYLENOL EXTRA STRENGTH) 500 mg tablet Indications: Traumatic coccydynia Take 2 tablets by mouth every 8 hours as needed for pain. 90 tablet 06/17/2023 Active Start: 01-22-2023 End: 01-27-2023 Tylenol 325 mg oral tablet D ose : 325 mg = 1 tab(s), Oral, q4hr, PRN for pain, X 5 day(s), # 50 tab(s), 0 Refill(s), 01/27/23 9:11:00 AM EDT Start Date: 01/22/23 Stop Date: 01/27/23 Status: Ordered Start: 10-26-2022 End: 07-18-2023 take 1 tablet by mouth every eight hours as needed for pain Acetaminophen 650 mg tablet extended release Discontinued 650 mg PO Q8H as needed for pain October 26, 2022 12:00am July 18, 2023 10:23pm Comment on above: Take 2 tablets by mo azh every 8 hours as needed for pain. acetaminophen 325 mg / oxyCODONE hydrochloride 5 mg oral tablet (8 sources) Opioid Agonist Start: 12-06-2021 take 1 tablet by mouth every six hours Oxycodone-Acetam inophen (Percocet) 5-325 mg tablet Active 1 TABLET PO EVERY 6 HOURS 12 December 06, 2021 Start: 10-12-2021 End: 10-19-2021 take 1 tablet by mouth once daily at bedtime oxyCODONE-acetaminophen (PERCOCET) 5-325 mg tablet Indications: Contusion of lower back, subsequent encounter Take 1 tablet by mouth daily at bedtime for 7 days. 7 tablet 0 10/12/2021 10/19/2021 Active Start: 09-28-2021 End: 10-12-2021 take 1 tablet by mouth every eight hours as needed for pain oxyCODONE-acetaminophen (PERCOCET) 5-325 mg tablet Indications: Contusion of back, unspecified laterality, subsequent encounter , Contusion of lower back, subsequent encounter Take 1 tablet by mouth every 8 hours as needed for pain. 15 tablet 0 09/28/2021 10/12/2021 Discontinued Start: 09-22-2021 End: 09-25-2021 take 1 tablet by mouth every six hours as needed for pain Percocet 5 mg-325 mg oral tablet Dose = 1 tab(s), Oral, q6hr, PRN as needed for pain, X 3 day(s), # 12 tab(s), 0 Refill(s), Fall Closed head injury, 63.6 Start Date: 09/22/21 Stop Date: 09/25/21 Status: Ordered Comment on above: Take 1 tablet by jamil th every 8 hours as needed for pain. Take 1 tablet by jamil th daily at bedtime for 7 days. amLODIPine 2.5 mg oral tablet (20 sources) Dihydropyridine Calcium Channel Analy Start: 01-17-2023 amLODIPine 2.5 mg oral tablet Dose : 2.5 mg = 1 tab(s), Oral, qDay, # 30 tab(s), 0 Refill(s) Start Date: 01/17/23 Status: Ordered Start: 08-23-2021 End: 09-19-2021 take 1 tablet by mouth once daily amLODIPine (NORVASC) 2.5 mg tablet Take 1 tablet by mouth once daily. 30 tablet 5 09/19/2021 Active Start: 05-30-2021 End: 08-18-2021 take 1 tablet by mouth twice daily amLODIPine (NORVASC) 5 mg tablet Take 1 tablet by mouth twice daily. 60 tablet 5 05/30/2021 08/18/2021 Discontinued (Adverse Reaction) Start: 04-26-2021 End: 08-18-2021 take 1 tablet by mouth once daily amLODIPine (NORVASC) 5 mg tablet Take 1 tablet by mouth once daily. 30 tablet 5 04/26/2021 08/18/2021 Discontinued (Adverse Reaction) Comment on above: Take 1 tablet by jamil th once daily. Take 1 tablet by jamil th twice daily. calcium polycarbophil 625 mg oral tablet (3 sources) Start: 025 Calcium Polycarbophil (Fiber Laxative (Ca Polycarbo)) 625 mg tablet Active 1250 mg PO daily 180 August 17, 2024 12:00am cholecalciferol 1.25 mg oral capsule (6 sources) Vitamin D Start: 024 take 1 capsule by mouth every week Cholecalciferol (Vitamin D3) 1,250 mcg (50,000 unit) capsule Active 1250 ug PO EVERY WEEK January 06, 2024 12:00am codeine phosphate 2 mg/ml / guaiFENesin 20 mg/ml oral solution (4 sources) Opioid Agonist Start: 023 End: 023 take 5 mL by mouth every eight hours as needed for cough and cough codeine-guaiFENesin (ROBITUSSIN AC) 10-100 mg/5 mL syrup Indications: Cough, unspecified type Take 5 mL by mouth three times daily as needed for up to 8 days. 118 mL 0 05/03/2022 05/11/2022 Active Comment on above: Take 5 mL by mouth t hree times daily as needed for up to 8 days. diclofenac sodium 0.01 mg/mg topical gel (20 sources) Nonsteroidal Anti-inflammatory Drug Start: 024 apply 4 g topically four times daily diclofenac (VOLTAREN ARTHRITIS PAIN) 1 % topical gel Indications: Traumatic coccydynia , Status post fall Apply 4 g to affected area four times daily. 100 g 3 05/20/2023 Active Comment on above: Apply 4 g to affecte d area four times daily. ergocalciferol 1.25 mg oral capsule (20 sources) Provitamin D2 Compound Start: 025 End: 025 take 1 capsule by mouth two times weekly ergocalciferol 50,000 unit capsule (VITAMIN D2, DRISDOL) Take 1 capsule by mouth two times a week. 24 capsule 1 09/18/2024 Active Start: 07-08-2023 End: 08-04-2024 take 1 capsule by mouth every week ergocalciferol 50,000 unit capsule (VITAMIN D2, DRISDOL) Take 1 capsule by mouth one time a week. 12 capsule 3 07/08/2023 08/04/2024 Discontinued Start: 06-12-2022 End: 07-08-2023 take 1 capsule by mouth two times weekly, then take 1 capsule by mouth two times weekly, then take 1 capsule by mouth every week ergocalciferol 50,000 unit capsule (VITAMIN D2, DRISDOL) Take 1 capsule by mouth two times a week. TO BE TAKEN ORALLY DIRECTED. Take 1 tablet by mouth twice weekly [id number], then decrease to 1 tablet weekly. 24 capsule 3 09/10/2022 07/08/2023 Discontinued Start: 04-27-2021 End: 09-28-2021 take 1 tablet by mouth two times weekly, then take 1 tablet by mouth every week ergocalciferol 50,000 unit capsule (VITAMIN D2, DRISDOL) Take 1 tablet by mouth twice weekly [id number], then decrease to 1 tablet weekly. 16 capsule 3 04/27/2021 09/28/2021 Discontinued Comment on above: Take 1 tablet by jamil th twice weekly [id number], then decrease to 1 tablet weekly. Take 1 capsule by mo uth two times a week. TO BE TAKEN ORALLY DIRECTED. Take 1 tablet by mouth twice weekly [id number], then decrease to 1 tablet weekly. Take 1 capsule by mo uth one time a week. ibuprofen 800 mg oral tablet (20 sources) Nonsteroidal Anti-inflammatory Drug Start: 05-16-2022 End: 06-17-2023 take 1 tablet by mouth every eight hours as needed for pain ibuprofen (MOTRIN) 800 mg tablet Indications: Traumatic coccydynia Take 1 tablet by mouth every 8 hours as needed for pain. Take with food. 30 tablet 06/17/2023 Active Start: 06-22-2021 End: 07-22-2021 take 1 tablet by mouth every eight hours as needed for pain ibuprofen (MOTRIN) 600 mg tablet Indications: Knee injury, left, subsequent encounter Take 1 tablet by mouth every 8 hours as needed for pain. 90 tablet 0 06/22/2021 07/22/2021 Active Comment on above: Take 1 tablet by jamil th every 8 hours as needed for pain. Take 1 tablet by jamil th every 8 hours as needed for pain. Take with food. losartan potassium 100 mg oral tablet (20 sources) Angiotensin 2 Receptor Analy Start: 10-22-2023 End: 09-28-2024 take 1 tablet by mouth once daily, then take 1 tablet by mouth once daily losartan (COZAAR) 100 mg tablet Indications: Essential hypertension, benign Take 1 tablet by mouth once daily. DOSE CHANGE TAKE ONE DAILY 90 tablet 3 09/28/2024 Active Start: 08-29-2023 End: 10-22-2023 take 1 tablet by mouth once daily losartan (COZAAR) 50 mg tablet Indications: Essential hypertension, benign Take 1 tablet by mouth once daily. 30 tablet 5 10/07/2023 10/22/2023 Discontinued Start: 12-13-2022 End: 01-06-2024 take 1 tablet by mouth once daily Losartan 25 mg tablet Discontinued 25 mg PO DAILY July 18, 2023 12:00am January 06, 2024 8:04am Start: 11-08-2022 End: 12-05-2022 take 1 tablet by mouth once daily losartan (COZAAR) 25 mg tablet Take 1 tablet by mouth once daily. 30 tablet 2 11/08/2022 12/05/2022 Discontinued Start: 09-20-2022 End: 11-05-2022 take 1 tablet by mouth once daily losartan (COZAAR) 25 mg tablet Take 1 tablet by mouth once daily. 30 tablet 1 09/20/2022 11/05/2022 Discontinued Start: 03-20-2019 take 1 tablet by jamil th once daily Losartan Active 1 TABLET PO DAILY March 20, 2019 12:00am Comment on above: Take 1 tablet by jamil th once daily. methylPREDNISolone (1 source) Corticosteroid Start: 2021 End: 2021 methylPREDNISolone (MEDROL, CIRILO,) 4 mg Dose-Pack Indications: Closed head injury with concussion, without loss of consciousness, subsequent encounter , Contusion of back, unspecified laterality, subsequent encounter , Contusion of lower back, subsequent encounter Follow dosing instructions, take with food. 1 Package 0 09/28/2021 10/04/2021 Active Comment on above: Follow dosing instru ctions, take with food. 24 hr metoprolol succinate 100 mg extended release oral tablet (20 sources) beta-Adrenergic Analy Start: 2022 take 1 capsule by mouth once daily Metoprolol Succinate 100 mg Capsule,Sprinkle,Er 24hr Active 100 mg PO DAILY August 13, 2022 12:00am Start: 06-06-2022 End: 12-05-2024 take 1 tablet by mouth once daily metoprolol succinate ER (TOPROL XL) 100 mg Indications: Essential hypertension, benign Take 1 tablet by mouth once daily. 90 tablet 3 09/28/2024 Active Start: 05-08-2022 End: 06-02-2022 take 1 tablet by mouth once daily metoprolol succinate ER (TOPROL XL) 100 mg Indications: Essential hypertension, benign Take 1 tablet by mouth once daily. 30 tablet 5 05/08/2022 06/02/2022 Discontinued Start: 12-20-2021 End: 05-05-2022 take 1 tablet by mouth once daily metoprolol succinate ER (TOPROL XL) 100 mg Indications: Essential hypertension, benign Take 1 tablet by mouth once daily. 30 tablet 5 05/08/2022 Active Start: 10-12-2021 take 1 tablet by jamil th once daily metoprolol succinate ER (TOPROL XL) 50 mg 24 hr tablet Indications: Essential hypertension, benign Take 1 tablet by mouth once daily. 30 tablet 2 10/12/2021 Active Start: 09-28-2021 End: 10-12-2021 take 1 tablet by mouth once daily metoprolol succinate ER (TOPROL XL) 25 mg 24 hr tablet Indications: Essential hypertension, benign Take 1 tablet by mouth once daily. 30 tablet 2 09/28/2021 10/12/2021 Discontinued (Dosage adjustment) Comment on above: Take 1 tablet by jamil th once daily. take 1 tablet by jamil th every day naproxen 500 mg oral tablet (20 sources) Nonsteroidal Anti-inflammatory Drug Start: 01-24-20 End: 08-29-19 take 1 tablet by mouth twice daily at mealtime naproxen (NAPROSYN) 500 mg tablet Take 1 tablet by mouth two times a day with meals. 60 tablet 0 01/23/2023 08/29/2023 Discontinued Comment on above: Take 1 tablet by jamil th two times a day with meals. pantoprazole 40 mg delayed release oral tablet (9 sources) Proton Pump Inhibitor Start: 08-18-19 take 1 tablet by mouth once daily 30 minutes before breakfast Pantoprazole 40 mg tablet,delayed release (DR/EC) Active 40 mg PO daily August 17, 2024 12:00am take 30 minutes before breakfast daily Start: 06-17-2024 End: 07-20-2024 take 1 tablet by mouth once daily in the morning Pantoprazole 40 mg tablet,delayed release (DR/EC) Discontinued 40 mg PO daily 90 June 17, 2024 12:00am July 20, 2024 10:06am take once daily in the morning 30 minutes before eating sertraline 50 mg oral tablet (20 sources) Serotonin Reuptake Inhibitor Start: 05-08-2023 End: 09-28-2024 take 1 tablet by mouth once daily sertraline (ZOLOFT) 50 mg tablet Take 1 tablet by mouth once daily. 90 tablet 3 09/28/2024 Active Start: 03-05-2023 take 1 tablet by jamil th once daily sertraline (ZOLOFT) 50 mg tablet Take 1 tablet by mouth once daily. 30 tablet 1 03/05/2023 Active Start: 01-15-2023 take 1 tablet by jamil th once daily sertraline (ZOLOFT) 50 mg tablet Take 1 tablet by mouth once daily. 30 tablet 1 01/15/2023 Active Comment on above: Take 1 tablet by jamil th once daily. sod sulf-pot chloride-mag sulf (SUTAB) 1.479-0.188- 0.225 gram tab (1 source) Start: 03-20-2023 End: 03-21-2023 sod sulf-pot chloride-mag sulf (SUTAB) 1.479-0.188- 0.225 gram tab Take 24 tablets by mouth available for use prior to procedure for 1 day. 24 tablet 0 03/20/2023 03/21/2023 Active Comment on above: Take 24 tablets by m out available for use prior to procedure for 1 day. Completed/Discontinued Medications Medication Drug Class(es) Dates Sig (Normalized) Sig (Original) chlorthalidone 25 mg oral tablet (20 sources) Thiazide-like Diuretic Start: 09-14-2022 End: 12-05-2022 take 1 tablet by mouth once daily chlorthalidone (HYGROTON) 25 mg tablet Take 1 tablet by mouth once daily. 30 tablet 11 09/14/2022 12/05/2022 Discontinued Start: 06-06-2022 End: 09-10-2022 take 1 tablet by mouth once daily chlorthalidone (HYGROTON) 25 mg tablet Indications: Essential hypertension, benign Take 1 tablet by mouth once daily. 30 tablet 5 06/06/2022 09/10/2022 Discontinued Start: 05-08-2022 End: 06-02-2022 take 1 tablet by mouth once daily chlorthalidone (HYGROTON) 25 mg tablet Indications: Essential hypertension, benign Take 1 tablet by mouth once daily. 30 tablet 5 05/08/2022 06/02/2022 Discontinued Start: 12-20-2021 End: 05-05-2022 take 1 tablet by mouth once daily chlorthalidone (HYGROTON) 25 mg tablet Indications: Essential hypertension, benign Take 1 tablet by mouth once daily. 30 tablet 5 05/08/2022 Active Comment on above: Take 1 tablet by jamil th once daily. sugar-free cholestyramine resin 4000 mg powder for oral suspension (3 sources) Bile Acid Sequestrant Start: 06-17-2024 End: 07-20-2024 Cholestyramine-Aspartam e (Cholestyramine Light) 4 gram powder in packet Discontinued 4 g PO TWICE A DAY June 17, 2024 12:00am July 20, 2024 10:06am administer w/meal; avoid other meds within 1hr before or 4-6hr after dose Cholestyramine-Aspartame (Cholestyramine Light) 4 gram powder in packet (3 sources) Start: 06-17-2024 End: 07-20-2024 Cholestyramine-Aspartam e (Cholestyramine Light) 4 gram powder in packet Discontinued 4 g PO TWICE A DAY June 17, 2024 12:00am July 20, 2024 10:06am administer w/meal; avoid other meds within 1hr before or 4-6hr after dose Start: 06-17-2024 Cholestyramine -Aspartame (Cholestyramine Light) 4 gram powder in packet Active 4 g PO TWICE A DAY June 17, 2024 12:00am administer w/meal; avoid other meds within 1hr before or 4-6hr after dose colestipol hydrochloride 1000 mg oral tablet (6 sources) Bile Acid Sequestrant Start: 01-14-2024 End: 04-15-2024 Colestipol 1 gram tablet Discontinued 1 g PO ONCE January 14, 2024 12:00am April 15, 2024 9:58am cyclobenzaprine hydrochloride 5 mg oral tablet (9 sources) Muscle Relaxant Start: 05-30-2022 End: 09-10-2022 take 1 tablet by mouth every eight hours as needed cyclobenzaprine (FLEXERIL) 5 mg tablet Take 1 tablet by mouth three times daily as needed for muscle spasm. 30 tablet 0 09/06/2022 09/10/2022 Discontinued Comment on above: Take 1 tablet by jamil three times daily. Take 1 tablet by jamil three times daily as needed for muscle spasm. dicyclomine hydrochloride 10 mg oral capsule (6 sources) Anticholinergic Start: 01-06-2024 End: 04-15-2024 take 1 capsule by mouth twice daily as needed for pain Dicyclomine 10 mg capsule Discontinued 10 mg PO TWICE A DAY as needed for abdominal pain January 06, 2024 12:00am April 15, 2024 10:24am FLUoxetine 10 mg oral capsule (15 sources) Serotonin Reuptake Inhibitor Start: 04-18-2022 End: 09-10-2022 take 1 capsule by mouth once daily FLUoxetine (PROZAC) 10 mg capsule Take 1 capsule by mouth once daily. 30 capsule 1 04/18/2022 09/10/2022 Discontinued Comment on above: [facility]. hydroCHLOROthiazide 12.5 mg oral capsule (6 sources) Thiazide Diuretic Start: 08-18-2021 End: 09-19-2021 take 1 capsule by mouth once daily hydroCHLOROthiazide (HYDRODIURIL, ESIDRIX) 12.5 mg capsule Take 1 capsule by mouth once daily. 30 capsule 5 08/18/2021 09/19/2021 Discontinued Comment on above: Take 1 capsule [facility] daily. hydrocortisone 25 mg/ml topical cream (20 sources) Corticosteroid Start: 04-15-2024 End: 07-20-2024 Hydrocortisone 2.5 % cream with perineal applicator Discontinued 1 NMA RC 1 to 2 times per day as needed for rectal pain April 15, 2024 1:00am July 20, 2024 10:06am Start: 01-15-2023 End: 05-20-2023 hydrocortisone (ANUSOL-HC) 2 .5 % rectal cream Indications: Rectal pain by RECTAL route two times a day. 28 g 1 01/15/2023 05/20/2023 Discontinued Comment on above: by RECTAL route two times a day. hydrOXYzine hydrochloride 25 mg oral tablet (20 sources) Antihistamine Start: 021 End: take 1 tablet by mouth every four hours as needed hydrOXYzine HCl (ATARAX) 25 mg tablet Indications: Anxiety attack Take 1 tablet by mouth every 4 hours as needed. 60 tablet 2 03/13/2021 12/20/2021 Discontinued Comment on above: Take 1 tablet by jamil th every 4 hours as needed. labetalol hydrochloride 100 mg oral tablet (12 sources) beta-Adrenergic Analy Start: End: take 1 tablet by mouth twice daily Labetalol 100 MG tablet Discontinued 100 mg PO TWICE A DAY 60 October 08, 2014 12:00am January 21, 2015 10:41am lidocaine 0.05 mg/mg medicated patch (10 sources) Antiarrhythmic, Amide Local Anesthetic Start: End: apply 1 dose transdermal route every twenty-four hours lidocaine (LIDODERM) 5 % Apply 1 Patch as directed every 24 hours. Apply patch for 12 hours then remove and leave off for 12 hours prior to applying a new patch. Location: to right ribs 14 Patch 0 05/16/2022 09/10/2022 Discontinued Comment on above: Apply 1 Patch as dir ected every 24 hours. Apply patch for 12 hours then remove and leave off for 12 hours prior to applying a new patch. Location: to right ribs lidocaine 5% NIFEdipine 0.2% rectal ointment (CPD) (1 source) Start: 024 End: apply 60 g rectal route twice daily lidocaine 5% NIFEdipine 0.2% rectal ointment (CPD) Apply a pea-sized amount rectally twice daily and before each bowel movement 60 g 0 05/06/2023 05/20/2023 Discontinued Comment on above: Apply a pea-sized am ount rectally twice daily and before each bowel movement linaclotide 0.145 mg oral capsule (6 sources) Guanylate Cyclase-C Agonist Start: 025 End: take 1 capsule by mouth once daily 30 minutes before breakfast Linaclotide (Linzess) 145 mcg capsule Discontinued 145 ug PO EVERY MORNING April 15, 2024 1:00am June 17, 2024 9:30am take 30 minutes before breakfast every morning lisinopril 40 mg oral tablet (20 sources) Angiotensin Converting Enzyme Inhibitor Start: take 1 tablet by mouth once daily lisinopril (ZESTRIL, PRINIVIL) 40 mg tablet Indications: hypertension Take 1 tablet by mouth once daily. 30 tablet 5 09/19/2021 Active Start: 01-09-2021 End: 09-19-2021 take 1 tablet by mouth twice daily lisinopril (ZESTRIL, PRINIVIL) 20 mg tablet Indications: Essential hypertension Take 1 tablet by mouth twice daily. 60 tablet 6 01/09/2021 07/10/2021 Discontinued Start: 11-03-2017 lisinopril Ora l, qDay, 0 Refill(s) Start Date: 11/03/17 Status: Ordered Start: 10-04-2014 End: 01-21-2015 take 1 tablet by mouth once daily Lisinopril 10 MG tablet Discontinued 10 mg PO DAILY October 04, 2014 12:00am January 21, 2015 10:41am Comment on above: Take 1 tablet by jamil twice daily. Take 20 mg by mouth twice daily. Take 1 tablet by jamil th once daily. omeprazole 20 mg delayed release oral capsule (13 sources) Proton Pump Inhibitor Start: 01-24-20 End: 05-20-19 take 1 capsule by mouth once daily before breakfast omeprazole (PRILOSEC) 20 mg capsule Indications: Dyspepsia Take 1 capsule by mouth daily before breakfast. 1/2 hr before meal. 30 capsule 1 01/23/2023 05/20/2023 Discontinued Comment on above: Take 1 capsule by mo [facility] daily before breakfast. 1/2 hr before meal. ondansetron 4 mg disintegrating oral tablet (20 sources) Serotonin-3 Receptor Antagonist Start: 01-23-20 End: 01-28-20 Zofran 4 mg oral tablet Dose : 4 mg = 1 tab(s), Oral, q6h, PRN Nausea/Vomiting, X 5 day(s), # 20 tab(s), 0 Refill(s), 01/27/23 9:11:00 AM EDT Start Date: 01/22/23 Stop Date: 01/27/23 Status: Ordered Start: 10-26-2022 End: 07-18-2023 take 1 tablet by mouth every eight hours as needed for nausea Ondansetron 4 mg tablet,disintegrating Discontinued 4 mg PO EVERY 8 HOURS NEEDED as needed for Nausea March 30, 2023 9:29am July 18, 2023 10:23pm Start: 12-06-2021 take 4 mg by mouth e very six hours Ondansetron Active 4 MG PO EVERY 6 HOURS February 24, 2022 12:00am Start: 09-28-2021 take 1 tablet by jamil th every eight hours as needed for nausea ondansetron orally disintegrating (ZOFRA N ODT) 4 mg disintegrating tablet Indications: Closed head injury with concussion, without loss of consciousness, subsequent encounter Take 1 tablet by mouth every 8 hours as needed for nausea/vomiting. 12 tablet 0 09/28/2021 Active Comment on above: Take 1 tablet by jamil th every 8 hours as needed for nausea/vomiting. polyethylene glycol 3350 [id number] mg powder for oral solution (20 sources) Osmotic Laxative Start: 024 End: 025 polyethylene glycol 3350 (MIRALAX) 17 gram/dose powder For colonoscopy prep 238 g 04/10/2023 07/14/2024 Discontinued Comment on above: For colonoscopy prep potassium chloride 10 meq extended release oral tablet (19 sources) Start: 023 End: 023 take 1 tablet by mouth once daily at breakfast potassium chloride (K-TAB) 10 mEq tablet Take 1 tablet by mouth daily with breakfast. 30 tablet 5 09/14/2022 12/05/2022 Discontinued Start: 06-12-2022 End: 09-10-2022 take 1 tablet by mouth once daily at breakfast potassium chloride (K-TAB) 10 mEq tablet Take 1 tablet by mouth daily with breakfast. 90 tablet 3 09/10/2022 09/10/2022 Discontinued Comment on above: Take 1 tablet by jamil th daily with breakfast. predniSONE 20 mg oral tablet (8 sources) Start: End: take 3 tablets by mouth once daily Prednisone 20 mg tablet Discontinued 60 mg PO DAILY March 30, 2023 1:00am July 18, 2023 10:23pm Start: 03-30-2023 End: 07-18-2023 take 60 mg by mouth once daily Prednisone Discontinued 60 MG PO DAILY March 30, 2023 1:00am July 18, 2023 10:23pm sennosides, correction 8.6 mg oral tablet (14 sources) Start: 01-15-2023 End: 05-20-2023 take 1 tablet by mouth twice daily Senna 8.6 mg tab Indications: Rectal pain , Constipation, unspecified constipation type Take 1 tablet by mouth two times a day. 30 tablet 1 01/15/2023 05/20/2023 Discontinued Comment on above: Take 1 tablet by jamil th two times a day. spironolactone 50 mg oral tablet (1 source) Aldosterone Antagonist Start: 09-10-2022 take 1 tablet by mouth once daily spironolactone (ALDACTONE) 50 mg tablet Take 1 tablet by mouth once daily. 30 tablet 5 09/10/2022 Active Comment on above: Take 1 tablet by jamil th once daily. triamcinolone acetonide 1 mg/ml topical cream (18 sources) Corticosteroid Start: 07-02-2023 End: 07-14-2024 triamcinolone acetonide (KENALOG) 0.1 % cream Apply 1 application to affected area three times a day. Apply sparingly to area for rash/itching. 28.4 g 1 07/02/2023 07/14/2024 Discontinued Comment on above: Apply 1 application to affected area three times a day. Apply sparingly to area for rash/itching. Problems Active Problems Problem Classification Problem Date Documented Da te Episodic/Chronic Abdominal pain (20 sources) Right upper quadrant pain; Translations: [Right upper quadrant pain] Onset: 02-02-2023 Episodic Allergic reactions (1 source) Inflammatory dermatosis; Translations: [Dermatitis, unspecified] 07-02-2023 Episodic Anal and rectal conditions (1 source) Rectal pain; Translations: [Other specified diseases of anus and rectum] 01-15-2023 Episodic Anxiety disorders (3 sources) Anxiety; Translations: [Anxiety disorder, unspecified] Chronic Biliary tract disease (12 sources) Cholecystitis without calculus; Translations: [Cholecystitis, unspecified] 03-19-2018 Episodic Coma; stupor; and brain damage (1 source) Daytime somnolence; Translations: [Somnolence] 10-22-2023 Episodic Conditions associated with dizziness or vertigo (2 sources) Dizziness; Translations: [Dizziness and giddiness] 07-02-2023 Episodic Coronary atherosclerosis and other heart disease (12 sources) Angina pectoris; Translations: [Angina pectoris, unspecified] 03-19-2018 Chronic Delirium, dementia, and amnestic and other cognitive disorders (11 sources) Postconcussion syndrome; Translations: [Postconcussional syndrome] 03-04-2022 Chronic Diabetes mellitus without complication (6 sources) Prediabetes; Translations: [Prediabetes] Onset: 07-14-2024 12-31-2022 Episodic E Codes: Fall (20 sources) Fall; Translations: [Unspecified fall, initial encounter] Onset: 09-22-2021 Episodic E Codes: Natural/environment (12 sources) Bitten or stung by nonvenomous insect and other nonvenomous arthropods, initial encounter; Translations: [Bedbug bite] 05-14-2015 Episodic Essential hypertension (20 sources) Benign essential hypertension; Translations: [Essential (primary) hypertension] Onset: 10-24-2009 10-24-2009 Chronic Fluid and electrolyte disorders (16 sources) Mild dehydration; Translations: [Dehydration] 05-28-2015 Episodic Gastroduodenal ulcer (except hemorrhage) (12 sources) Peptic ulcer; Translations: [Peptic ulcer, site unspecified, unspecified as acute or chronic, without hemorrhage or perforation] 05-14-2015 Chronic Genitourinary symptoms and ill-defined conditions (20 sources) Incontinence; Translations: [Mixed incontinence] Onset: 05-11-2015 05-11-2015 Chronic Genitourinary symptoms and ill-defined conditions (3 sources) Dysuria; Translations: [Dysuria] Onset: 02-02-2023 Episodic Immunizations and screening for infectious disease (2 sources) Patient encounter status; Translations: [Encounter for immunization] Episodic Intracranial injury (20 sources) Concussion injury of brain; Translations: [Concussion without loss of consciousness, subsequent encounter] Episodic Malaise and fatigue (1 source) Fatigue; Translations: [Other fatigue] 08-29-2023 Episodic Nonspecific chest pain (12 sources) Atypical chest pain; Translations: [Other chest pain] 03-19-2018 Episodic Nutritional deficiencies (3 sources) Vitamin D deficiency; Translations: [Vitamin D deficiency, unspecified] Chronic Other circulatory disease (1 source) History of transient ischemic attack; Translations: [Personal history of transient ischemic attack (TIA), and cerebral infarction without residual deficits] 12-31-2022 Episodic Other connective tissue disease (1 source) Pain of left hand; Translations: [Pain in left hand] Episodic Other connective tissue disease (1 source) Pain in right hand; Translations: [Pain in right hand] Episodic Other gastrointestinal disorders (1 source) Irritable bowel syndrome without diarrhea; Translations: [Irritable bowel syndrome, unspecified] Onset: 02-03-2024 Chronic Other gastrointestinal disorders (17 sources) Constipation; Translations: [Constipation, unspecified] 01-15-2023 Episodic Other gastrointestinal disorders (1 source) Change in bowel habit; Translations: [Altered bowel habits] Onset: 04-25-2023 Episodic Other gastrointestinal disorders (19 sources) Diarrhea; Translations: [Diarrhea, unspecified] 06-17-2024 Episodic Other gastrointestinal disorders (19 sources) Incontinence of feces; Translations: [Full incontinence of feces] 04-15-2024 Episodic Other gastrointestinal disorders (6 sources) Heartburn; Translations: [Heartburn] 08-17-2024 Episodic Other gastrointestinal disorders (2 sources) Full incontinence of feces; Translations: [Full incontinence of feces] Onset: 07-20-2024 Episodic Other gastrointestinal disorders (2 sources) Fecal urgency; Translations: [Fecal urgency] Onset: 07-20-2024 Episodic Other gastrointestinal disorders (2 sources) Diarrhea, unspecified; Translations: [Diarrhea, unspecified] Onset: 09-14-2024 Episodic Other gastrointestinal disorders (1 source) Slow transit constipation; Translations: [Slow transit constipation] Onset: 09-14-2024 Episodic Other gastrointestinal disorders (1 source) Heartburn; Translations: [Heartburn] Onset: 08-17-2024 Episodic Other hematologic conditions (12 sources) Raised cardiac enzyme or marker; Translations: [Other specified abnormalities of plasma proteins] 03-19-2018 Episodic Other injuries and conditions due to external causes (2 sources) Injury of left ankle; Translations: [Unspecified injury of left ankle, initial encounter] Episodic Other injuries and conditions due to external causes (1 source) Lower back injury; Translations: [Unspecified injury of lower back, initial encounter] Onset: 09-22-2021 Episodic Other injuries and conditions due to external causes (1 source) Injury of ribs; Translations: [Unspecified injury of thorax, initial encounter] Episodic Other liver diseases (11 sources) Steatosis of liver; Translations: [Fatty (change of) liver, not elsewhere classified] 04-15-2024 Chronic Other liver diseases (5 sources) Fatty (change of) liver, not elsewhere classified; Translations: [Metabolic dysfunction-associat ed steatotic liver disease (MASLD)] Onset: 09-14-2024 09-14-2024 Chronic Other liver diseases (4 sources) Alkaline phosphatase raised; Translations: [Abnormal levels of other serum enzymes] 09-14-2024 Episodic Other liver diseases (1 source) Abnormal levels of other serum enzymes; Translations: [Abnormal levels of other serum enzymes] Onset: 09-14-2024 Episodic Other lower respiratory disease (5 sources) Rib pain; Translations: [Pleurodynia] Episodic Other lower respiratory disease (2 sources) Cough; Translations: [Cough, unspecified type] Episodic Other lower respiratory disease (2 sources) Dyspnea; Translations: [Shortness of breath] 12-31-2022 Episodic Other lower respiratory disease (1 source) Pleuritic pain; Translations: [Pleurodynia] Onset: 01-17-2023 Episodic Other lower respiratory disease (2 sources) Snoring; Translations: [Snoring] 08-29-2023 Episodic Other lower respiratory disease (1 source) Apnea; Translations: [Apnea, not elsewhere classified] 08-29-2023 Episodic Other nervous system disorders (2 sources) Bilateral carpal tunnel syndrome; Translations: [Carpal tunnel syndrome, bilateral upper limbs] Chronic Other nervous system disorders (1 source) Other chronic pain; Translations: [Chronic pain of left knee] Onset: 07-22-2024 Chronic Other nervous system disorders (1 source) Paresthesia; Translations: [Paresthesia of skin] Episodic Other non-traumatic joint disorders (2 sources) Acute ankle pain; Translations: [Pain in left ankle and joints of left foot] Episodic Other non-traumatic joint disorders (8 sources) Shoulder pain; Translations: [Pain in left shoulder] Onset: 09-18-2022 03-04-2022 Episodic Other non-traumatic joint disorders (9 sources) Pain in left shoulder; Translations: [Left shoulder pain] 03-04-2022 Episodic Other nutritional; endocrine; and metabolic disorders (2 sources) Cholesterol level - finding; Translations: [Lipoprotein deficiency] 01-15-2023 Chronic Other screening for suspected conditions (not mental disorders or infectious disease) (20 sources) Cardiovascular stress test abnormal; Translations: [Abnormal result of other cardiovascular function study] Onset: 04-25-2023 03-19-2018 Episodic Comment on above: 03/2023 Other skin disorders (1 source) Localized swelling of left lower leg; Translations: [Localized swelling, mass and lump, left lower limb] 12-05-2022 Episodic Other skin disorders (1 source) Xeroderma; Translations: [Xerosis cutis] 07-02-2023 Episodic Residual codes; unclassified (2 sources) Sleep apnea; Translations: [Sleep apnea, unspecified] Chronic Residual codes; unclassified (1 source) Treatment not available; Translations: [Procedure and treatment not carried out for other reasons] Episodic Sprains and strains (20 sources) Strain of neck muscle; Translations: [Strain of muscle, fascia and tendon at neck level, initial encounter] Onset: 01-17-2023 02-23-2018 Episodic Unclassified (4 sources) Chronic pain of left knee 07-14-2024 Urinary tract infections (20 sources) Hemorrhagic cystitis; Translations: [Cystitis, unspecified with hematuria] 09-13-2014 Episodic Past or Other Problems Problem Classification Problem Date Documented Da te Episodic/Chronic Menstrual disorders (20 sources) Menorrhagia; Translations: [Excessive and frequent menstruation with regular cycle] Onset: 09-03-2014 Resolved: 10-20-2014 10-20-2014 Chronic Other female genital disorders (20 sources) Abnormal uterine bleeding; Translations: [Abnormal uterine and vaginal bleeding, unspecified] Onset: 09-03-2014 Resolved: 10-20-2014 10-20-2014 Chronic Other gastrointestinal disorders (20 sources) Altered bowel function; Translations: [Change in bowel habit] Onset: 04-25-2023 02-04-2023 Episodic Other gastrointestinal disorders (1 source) Constipation, unspecified; Translations: [Constipation, unspecified] Onset: 04-15-2024 Episodic Other injuries and conditions due to external causes (20 sources) Injury of head; Translations: [Unspecified injury of head, initial encounter] Onset: 09-22-2021 Episodic Other injuries and conditions due to external causes (20 sources) History of fall; Translations: [History of falling] Onset: 05-29-2023 05-20-2023 Episodic Other non-traumatic joint disorders (20 sources) Pain in right shoulder; Translations: [Pain in joint, shoulder region] Onset: 09-18-2022 Episodic Other non-traumatic joint disorders (20 sources) Pain in left knee; Translations: [Pain in joint, lower leg] Onset: 12-19-2022 12-05-2022 Episodic Other non-traumatic joint disorders (20 sources) Hip pain; Translations: [Pain in left hip] Onset: 12-19-2022 12-05-2022 Episodic Other non-traumatic joint disorders (20 sources) Pain of right wrist; Translations: [Pain in right wrist] Onset: 01-31-2023 01-23-2023 Episodic Spondylosis; intervertebral disc disorders; other back problems (20 sources) Chronic low back pain; Translations: [Chronic low back pain] Onset: 08-27-2014 04-03-2021 Episodic Superficial injury; contusion (20 sources) Contusion of back; Translations: [Contusion of unspecified back wall of thorax, subsequent encounter] Onset: 10-20-2021 Episodic Unclassified (11 sources) Contusion of left shoulder, initial encounter 03-04-2022 Unclassified (2 sources) Patient encounter status 06-25-2024 Results Test Name Value Interpretation Reference Range Facility [facility] 09-17-2024 [facility] Telephone (INTMWS) GILMA GARCIA ([id number]) 1970 F Date Time Provider Department 09/17/24 JULITA COLLINS INTWS During your visit today, we recorded the following information about you: Claribel Harrell, RN 09/17/2024 3:20 PM Signed Patient calling and asking if provider can order a bone density test. Patient reports that Dr. Jackson, from [facility] is recommending patient get a bone density test done. Patient needs medication sent to [facility] The patient has been identified by name and date of : Yes Caregiver verified no other encounters exist for this prescription request: Yes Caregiver confirmed with patient/requestor that no other refills are due, in the near future, with this provider at this time: Yes The last office visit in the department: 07/14/2024 Does the patient have a future office visit with this provider/department: Yes 10/05/2024 Requested Prescriptions Pending Prescriptions Disp Refills ergocalciferol 50,000 unit capsule (VITAMIN D2, DRISDOL) 24 capsule 1 Sig: Take 1 capsule by mouth two times a week. Claribel Harrell RN September 17, 2024 3:19 PM Julita Collins MD 09/18/2024 12:48 PM Signed We will discuss in the upcoming visit Gisela Quintero MA 09/18/2024 2:14 PM Signed Patient was notified Gisela Quintero MA Allergies As of Date: 09/17/2024 Noted Allergy Reaction MOBIC (MELOXICAM) 10/24/2009 4 - Hives NAPROXEN 10/24/2009 8 - GI Upset PREDNISONE 11/07/2009 4 - Hives 12 - Shortness of Breath TYLENOL #3 (CODEINE) 10/24/2009 4 - Hives VICODIN (HYDROCODONE-ACETAMIN OPHE*09/27/2014 8 - GI Upset Comments: Nausea Date Reviewed: 07/14/2024 Reviewed by: Deena Youssef LPN - Fully Assessed Reason for Visit: Refill Request [94] Orders [681] Order(s):ergocalcifer ol 50,000 unit capsule (VITAMIN D2, DRISDOL)Take 1 capsule by mouth two times a week.Disp: 24 capsuleRfl: 1 Prescriptions as of 09/18/2024 - ergocalciferol 50,000 unit capsule (VITAMIN D2, DRISDOL) Take 1 capsule by mouth two times a week. - metoprolol succinate ER (TOPROL XL) 100 mg Take 1 tablet by mouth once daily. - sertraline (ZOLOFT) 50 mg tablet Take 1 tablet by mouth once daily. - losartan (COZAAR) 100 mg tablet Take 1 tablet by mouth once daily. DOSE CHANGE TAKE ONE DAILY - ibuprofen (MOTRIN) 800 mg tablet Take 1 tablet by mouth every 8 hours as needed for pain. Take with food. - acetaminophen (TYLENOL EXTRA STRENGTH) 500 mg tablet Take 2 tablets by mouth every 8 hours as needed for pain. - diclofenac (VOLTAREN ARTHRITIS PAIN) 1 % topical gel Apply 4 g to affected area four times daily. Problem List As Of Date 09/17/2024 Noted Resolved Hypertension, essential [I10] 10/24/2009 Chronic low back pain [M54.50, G89.29] 08/27/2014 Heavy menses [N92.0] 09/03/2014 10/20/2014 Abnormal uterine bleeding [N93.9] 09/03/2014 10/20/2014 Irregular bleeding [N92.6] 09/03/2014 10/20/2014 Mixed incontinence [N39.46] 05/11/2015 Contusion of lower back [S30.0XXA] 10/20/2021 Head injury [S09.90XA] 12/06/2021 Right shoulder pain [M25.511] 09/18/2022 Acute pain of left knee [M25.562] 12/19/2022 Acute hip pain, left [M25.552] 12/19/2022 Right wrist pain [M25.531] 01/31/2023 Altered bowel habits [R19.4] 04/25/2023 Traumatic coccydynia [M53.3] 05/29/2023 Status post fall [Z91.81] 05/29/2023 Prescriptions ordered this encounter Disp Refills Start End ERGOCALCIFEROL (VITAMIN D2) 1,250 MC* 24 c* 1 09/18/2024 Route: PO Sig: Take 1 capsule by mouth two times a week. Medications Discontinued During This Encounter Prescriptions - ergocalciferol 50,000 unit capsule (VITAMIN D2, DRISDOL) (Discontinued) Take 1 capsule by mouth two times a week. Encounter Status:Closed by GISELA QUINTERO on 09/18/24 Normal [facility] Gastroenterology Visit Repor ton 09-14-2024 Gastroenterology Visit Report [facility]enter[facility] [address] [place] [address] OFFICE VISIT Date of Service: 09/14/24 MR#: [id number] Acct: [id number] Name: GILMA GARCIA Rep #: [id number] : 1970 Provider: Dr. Pablo lucia MD Age/Sex: 54/F [place] [facility] [place] [place]: Signed Intake Vital Signs 07/20/24 10:14 09/14/24 07:49 Height 5 ft 3 in 5 ft 3 in Weight: 185 lb BMI 32.8 BP 181/96 H Blood Pressure Location Lt brachial Position Sitting Pulse 63 Pulse Oximetry (%) 94 Oxygen Delivery Method room air Intake Visit Reasons: ELEVATED LIVER Allergies meloxicam (From Mobic) Allergy (Verified 09/14/24 07:48) Hives naproxen (From Naprosyn) Allergy (Verified 09/14/24 07:48) Hives codeine Adverse Reaction (Verified 09/14/24 07:48) Vomiting hydrocodone bitartrate (From Vicodin) Adverse Reaction (Verified 09/14/24 07:48) Nausea morphine Adverse Reaction (Verified 09/14/24 07:48) Chest tightness Medications ???Medication ???Instructions ???Recorded ???Confirmed ???Type metoprolol succinate 100 mg 100 mg PO DAILY 08/13/22 09/14/24 History capsule sprinkle, ext. release 24 hr cholecalciferol (vitamin D3) 1,250 1,250 mcg PO QWEEK 01/06/2412/31 History mcg (50,000 unit) capsule losartan 100 mg tablet 100 mg PO QDAY 01/06/24 09/14/24 H istory sertraline 50 mg tablet (Zoloft) 50 mg PO QDAY 01/06/24 09/14/24 Hi story calcium polycarbophil 625 mg 1,250 mg (2 x 625 mg) PO QDAY #180 08/17/24 09/14/24 Rx tablet (Fiber Laxative (calcium tabs polycarbophil)) pantoprazole 40 mg tablet,delayed 40 mg PO QDAY #90 tabs 08/17/24 0 09/14/24 Rx release PFSH Medical History Hypertension Surgical History History of tonsillectomy History of hysterectomy History of cholecystectomy Social History Smoking Status: Former smoker Female Reproductive History Menstrual control method: other (partial hysterectomy - reports she has 1 ovary remaining) HPI HPI Details: GILMA GARCIA, is a 54 F who presents to the office today for consult. OV 5.12.25- Currently established with GI for constipation, abd pain, diarrhea. Requesting to consult hepatology for elevated alkaline phosphatase with moderate to severe hepatic fibrosis and diffuse fatty infiltration of the liver. US abd/ elastography 06.16.24- Liver measures 15.4cm , Stiffness 10.6 kPa 08.18.24- Fib-4 0.91 09/15/2019: Office visit: Fibrosis. Okay patient also has epigastric/RUQ abdominal pain for many years okay yeah since [address] Pierce. The duct was found dilated but no stones were found. Patient also has alteration of bowel habit for more than 1 year usually constipation and then gets urgency and bowel movement. She had colonoscopy also last year and it found 1 serrated polyp which was reported hyperplastic in pathology in [facility] by Dr. Ever CROCKETT Const Constitutional: Positive for frequent falls; No fatigue, fever(s) or weight change ENT ENT: No difficulty swallowing Resp Respiratory: No shortness of breath or wheezing Cardio Cardiology: No chest pain at rest or dyspnea on exertion Gastro GI: Positive for abdominal pain, bloating, constipation, diarrhea and excessive flatus; No belching, change in bowel habits, change in stool character, coffee ground emesis, cramping, heartburn, difficulty swallowing, feeling full early, incontinent of stools, Vomiting blood/hematemesis, Blood in stool, loose stools, Black,tarry stools, nausea/dyspepsia, pain with swallowing, vomiting or other Genitourinary-Female: No difficulty urinating or burning urination Musc Musculoskeletal: Positive for joint pain and back pain Skin Skin: No yellowing of the eye or itchy eyes Neuro Neurology: Positive for frequent falls Psych Psychiatric: No anxiety and No depression Endo Endocrine: No fatigue or weight change Aller/Imm Allergy/Immunologic: No itchy eyes or wheezing Toi/Lymp Hematologic/Lymphatic : No easy bleeding or easy bruising Exam Const General: cooperative, no acute distress and well developed Nutritional Appearance: average body habitus Orientation: alert, awake and oriented x3 HENMT Head: normocephalic and atraumatic Nose: external nose normal Face and sinus: normal facial exam Mouth: moist mucous membranes Eyes Pupils: PERRL EOM: EOM intact bilaterally Neck Neck: normal visual inspection, no meningeal signs and trachea midline Carotids: no bruits Chest Chest palpation inspection: normal inspection of the chest Resp Effort Inspection: normal respiratory effort and symmetric chest movement (more content not included)... Normal [facility] L/S Spine Min 4 Viewson L/S Spine Min 4 Views [facility] [address] [place], [place] [address] L/S Spine Min 4 Views MR#: [id number] Acct: [id number] Name: GILMA GARCIA Rep #: [id number] : 1970 F 54 From: Eric maurer MD PCP: Dr. Julita Collins MD Status: REG CLI Study: L/S Spine Min 4 Views Date of Exam: 09/14/24 Exam# [id number] Ordering Dr: Mak Zhou D.C. PROCEDURE: L/S SPINE MIN 4 VIEWS 09/14/2024 REASON FOR EXAM: LUMBAR STRAIN TECHNIQUE: Standing AP view(s) of the thoracic and lumbar spine. COMPARISON: None. FINDINGS: Mildly exaggerated lumbar lordosis. Mild S shaped degenerative scoliosis. There are diffuse spondylotic changes. Findings are demonstrated to by diffuse disc space narrowing, osteophyte formation and degenerative endplate sclerosis. There is diffuse facet joint arthropathy with secondary bilateral neural foramina narrowing. No fracture or dislocation is seen. No aggressive lytic or blastic bony lesion is noted. RAD/L/S Spine Min 4 Views IMPRESSION: Spondylosis. No pars defect on the oblique images. Reading Location: [place] [address] CC: AMARILYS Zhou; Dr. Julita Collins MD Shop Lead: Signed Normal [facility] L3410.9992on 08-20-2024 [facility] Misc. COMMENT Normal . [facility] Comment on above: Order Comment: [id number] 9Enhanced Liver Fibrosis Result Comment: Test Ordered: [id number] Enhanced Liver Fibrosis (ELF) ELF(TM) Score 8.79 Reference Range: <9.80 ELF(TM) Score Interpretation: Risk cut-offs to assess the likelihood of progression to cirrhosis and liver-related clinical events within 3.9 years following baseline ELF score (IQR: 14.0-22.4 months)*: Lower risk < 9.80 Mid risk 9.80 - 11.29 Higher risk >11.29 Note: The ELF(TM) Score is a unitless numerical value. *Bib SA, Lamin OSBORN, Manuel T, et al. Selonsertib for patients with bridging fibrosis or compensated cirrhosis due to SANCHEZ: Results from randomized phase III STELLAR trials. J Hepatol. 2020 Oct;73(1):26-39. Performed at: [facility] [address] [id number] Cutter Operator Brick: Bety Koch MD, Phone: [phone] Performed at: [facility] [address] [id number] Cutter Operator Brick: Mil Waggoner PhD, Phone: [phone] Performed By: #### L 3410.9992, L100.0100, L300.3900, L500.4050 ####[facility] [address] [place], [place], [id number] Absolute lymphocyte countOrd ered By: Jeannette Horvath on 08-18-2024 Lymphocytes Auto (Unsp spec) [#/Vol] 1.63 10*3/uL 0.83-4.51 [facility] Absolute neutrophil countOrd ered By: Jeannette Horvath on 08-18-2024 Neutrophils (Bld) [#/Vol] 4.9 10*3/uL 2.0-7.7 [facility] Anion gap in Serum or Plasma Ordered By: Jeannette Horvath on 08-18-2024 Anion gap [Moles/Vol] 9 mmol/L - [facility] Automated lymphocyte count a s percentage of total leukocytesOrdered By: Jeannette Horvath on 08-18-2024 Lymphocytes/100 WBC Auto (Unsp spec) 22.1 % 19- [facility] BUN/creatinine ratioOrdered By: Jeannette Horvath on 08-18-2024 Urea nitrogen/Creatinine [Mass ratio] 17.3 mg/mg 10-20 [facility] Basophil percentageOrdered B y: Jeannette Horvath on 08-18-2024 Basophils/100 WBC (Bld) 0.9 % 0-1 [facility] Bilirubin, totalOrdered By: Jeannette Horvath on 08-18-2024 Bilirubin [Mass/Vol] 0.29 mg/dL 0.00-1.30 [facility] CBC W/Diff, Automatedon 08-06 Absolute Lymph 1.63 X10 3/uL Normal 0.83-4.51 [facility] Comment on above: Performed By: #### L 3410.9992, L100.0100, L300.3900, L500.4050 ####[facility] [address] [place], [address] Absolute Neut 4.9 X10 3/uL Normal 2.0-7.7 [facility] Comment on above: Performed By: #### L 3410.9992, L100.0100, L300.3900, L500.4050 ####[facility] [address] [place], [address] Basophils/100 WBC (Bld) 0.9 % Normal 0-1 [facility] Comment on above: Performed By: #### L 3410.9992, L100.0100, L300.3900, L500.4050 ####[facility] [address] [place], [address] Eosinophils/100 WBC (Bld) 2.2 % Normal 0-5 [facility] Comment on above: Performed By: #### L 3410.9992, L100.0100, L300.3900, L500.4050 ####[facility] [address] [place], [address] Erythrocyte distribution width (RBC) [Ratio] 15.0 % High 11.6-14.6 [facility] Comment on above: Performed By: #### L 3410.9992, L100.0100, L300.3900, L500.4050 ####[facility] [address] [place], [address] Hematocrit (Bld) [Volume fraction] 42.4 % Normal 37-47 [facility] Comment on above: Performed By: #### L 3410.9992, L100.0100, L300.3900, L500.4050 ####[facility] [address] [place], [address] Hemoglobin (Bld) [Mass/Vol] 13.9 g/dL Normal 12.0-15. 0 [facility] Comment on above: Performed By: #### L 3410.9992, L100.0100, L300.3900, L500.4050 ####[facility] [address] [place], [address] IG% 0.400 Normal 0.0-0.9 [facility] Comment on above: Result Comment: IG% - Immature Granulocytes (promyelocytes, myelocytes and metamyelocytes) > 1% indicates that a LEFT SHIFT is Present. Performed By: #### L 3410.9992, L100.0100, L300.3900, L500.4050 ####[facility] [address] [place], [address] Lymphocytes/100 WBC (Bld) 22.1 % Normal 19-41 [facility] Comment on above: Performed By: #### L 3410.9992, L100.0100, L300.3900, L500.4050 ####[facility] [address] [place], [address] MCH (RBC) [Entitic mass] 28.1 pg Normal 27.0-32.0 [facility] Comment on above: Performed By: #### L 3410.9992, L100.0100, L300.3900, L500.4050 ####[facility] [address] [place], [address] MCHC (RBC) [Mass/Vol] 32.8 g/dL Normal 32-36 [facility] Comment on above: Performed By: #### L 3410.9992, L100.0100, L300.3900, L500.4050 ####[facility] [address] [place], [address] MCV (RBC) [Entitic vol] 85.7 fL Normal 81-99 [facility] Comment on above: Performed By: #### L 3410.9992, L100.0100, L300.3900, L500.4050 ####[facility] [address] [place], [address] Monocytes/100 WBC (Bld) 8.1 % Normal 0-10 [facility] Comment on above: Performed By: #### L 3410.9992, L100.0100, L300.3900, L500.4050 ####[facility] [address] [place], [address] Neutrophils/100 WBC (Bld) 66.3 % Normal 47-70 [facility] Comment on above: Performed By: #### L 3410.9992, L100.0100, L300.3900, L500.4050 ####[facility] [address] [place], [address] Nucleated RBC (Bld) [#/Vol] 0 10*3/uL Normal 0-5 [facility] Comment on above: Performed By: #### L 3410.9992, L100.0100, L300.3900, L500.4050 ####[facility] [address] [place], [address] Platelet mean volume (Bld) [Entitic vol] 9.5 fL Normal 6.2-12.0 [facility] Comment on above: Performed By: #### L 3410.9992, L100.0100, L300.3900, L500.4050 ####[facility] [address] [place], [address] Platelets (Bld) [#/Vol] 342 10*3/uL Normal 150-450 [facility] Comment on above: Performed By: #### L 3410.9992, L100.0100, L300.3900, L500.4050 ####[facility] [address] [place], [address] RBC (Bld) [#/Vol] 4.95 10*6/uL Normal 4.2-5.4 [facility] Comment on above: Performed By: #### L 3410.9992, L100.0100, L300.3900, L500.4050 ####[facility] [address] [place], [address] RDW SD 46.7 fl High 35.1-43.9 [facility] Comment on above: Performed By: #### L 3410.9992, L100.0100, L300.3900, L500.4050 ####[facility] [address] [place], [address] WBC (Bld) [#/Vol] 7.4 10*3/uL Normal 4.4-11.0 [facility] Comment on above: Performed By: #### L 3410.9992, L100.0100, L300.3900, L500.4050 ####[facility] [address] [place], [address] Carbon dioxide, total [Moles /volume] in Central venous bloodOrdered By: Jeannette Horvath on 08-18-2024 CO2 [Moles/Vol] 26.0 mmol/L 21.0-32.0 [facility] Chloride assayOrdered By: Antonio Horvath on 08-18-2024 Chloride [Moles/Vol] 106 mmol/L 98-108 [facility] Comprehensive Metabolic Prof ilon 08-18-2024 Albumin [Mass/Vol] 3.9 g/dL Normal 3.5-5.0 [facility] Comment on above: Performed By: #### L 3410.9992, L100.0100, L300.3900, L500.4050 ####[facility] [address] [place], [address] Albumin/Globulin [Mass ratio] 1.1 {ratio} Normal 0.9-2.4 [facility] Comment on above: Performed By: #### L 3410.9992, L100.0100, L300.3900, L500.4050 ####[facility] [address] [place], [address] ALK PHOS 123 U/L High 35-104 [facility] Comment on above: Performed By: #### L 3410.9992, L100.0100, L300.3900, L500.4050 ####[facility] [address] [place], [address] ALT [Catalytic activity/Vol] 8 U/L Normal <=34 [facility] Comment on above: Performed By: #### L 3410.9992, L100.0100, L300.3900, L500.4050 ####[facility] [address] [place], [address] AST [Catalytic activity/Vol] 16 U/L Normal <=31 [facility] Comment on above: Performed By: #### L 3410.9992, L100.0100, L300.3900, L500.4050 ####[facility] [address] [place], [address] Bilirubin [Mass/Vol] 0.29 mg/dL Normal 0.00-1.30 [facility] Comment on above: Performed By: #### L 3410.9992, L100.0100, L300.3900, L500.4050 ####[facility] [address] [place], [address] BUN/CRE 17.3 RATIO Normal 10-20 [facility] Comment on above: Performed By: #### L 3410.9992, L100.0100, L300.3900, L500.4050 ####[facility] [address] [place], [address] Calcium [Mass/Vol] 9.0 mg/dL Normal 7.6-11.0 [facility] Comment on above: Performed By: #### L 3410.9992, L100.0100, L300.3900, L500.4050 ####[facility] [address] [place], [address] Chloride [Moles/Vol] 106 mmol/L Normal 98-108 [facility] Comment on above: Performed By: #### L 3410.9992, L100.0100, L300.3900, L500.4050 ####[facility] [address] [place], [address] CO2 [Moles/Vol] 26.0 mmol/L Normal 21.0-32.0 [facility] Comment on above: Performed By: #### L 3410.9992, L100.0100, L300.3900, L500.4050 ####[facility] [address] [place], [address] Creatinine [Mass/Vol] 0.68 mg/dL Low 0.70-1.20 [facility] Comment on above: Performed By: #### L 3410.9992, L100.0100, L300.3900, L500.4050 ####[facility] [address] [place], [address] GAP 9 Normal 5-15 [facility] Comment on above: Performed By: #### L 3410.9992, L100.0100, L300.3900, L500.4050 ####[facility] [address] [place], [address] GFR/1.73 sq M.predicted among non-blacks MDRD (S/P/Bld) [Vol rate/Area] 103 mL/min/{1.73_m2} Normal >60 [facility] Comment on above: Result Comment: mL/m in/1.73m2 CKD-EPI Creatinine Equation (2020) Performed By: #### L 3410.9992, L100.0100, L300.3900, L500.4050 ####[facility] [address] [place], [address] Globulin (S) [Mass/Vol] 3.5 g/dL Normal 2.2-4.2 [facility] Comment on above: Performed By: #### L 3410.9992, L100.0100, L300.3900, L500.4050 ####[facility] [address] [place], [address] Glucose [Mass/Vol] 117 mg/dL High 70-99 [facility] Comment on above: Performed By: #### L 3410.9992, L100.0100, L300.3900, L500.4050 ####[facility] [address] [place], [address] Potassium [Moles/Vol] 4.2 mmol/L Normal 3.3-5.1 [facility] Comment on above: Performed By: #### L 3410.9992, L100.0100, L300.3900, L500.4050 ####[facility] [address] [place], [address] Sodium [Moles/Vol] 141 mmol/L Normal 133-145 [facility] Comment on above: Performed By: #### L 3410.9992, L100.0100, L300.3900, L500.4050 ####[facility] [address] [place], [address] T PROT 7.4 g/dL Normal 5.9-8.4 [facility] Comment on above: Performed By: #### L 3410.9992, L100.0100, L300.3900, L500.4050 ####[facility] [address] [place], [address] Urea nitrogen [Mass/Vol] 12 mg/dL Normal 4-19 [facility] Comment on above: Performed By: #### L 3410.9992, L100.0100, L300.3900, L500.4050 ####[facility] [address] [place], [address] Eosinophil percentageOrdered By: Jeannette Horvath on 08-18-2024 Eosinophils/100 WBC (Bld) 2.2 % 0-5 [facility] Erythrocyte distribution wid th ratioOrdered By: Jeannette Horvath on 08-18-2024 Erythrocyte distribution width (RBC) [Ratio] 15.0 % High 11.6-14.6 [facility] Erythrocyte distribution wid th standard deviationOrdered By: Jeannette Horvath on 08-18-2024 Erythrocyte distribution width (RBC) [Ratio] 46.7 fl High 35.1-43.9 [facility] Glomerular filtration rate ( GFR) estimation/1.73 sq m using serum, plasma, or whole bOrdered By: Jeannette Horvath on 08-18-2024 GFR/1.73 sq M.predicted among non-blacks MDRD (S/P/Bld) [Vol rate/Area] 103 mL/min/{1.73_m2} >60 [facility] Comment on above: mL/min/1.73m2 CKD-EP I Creatinine Equation (2020) Hematocrit Auto (Bld) [Volum e fraction]Ordered By: Jeannette Horvath on 08-18-2024 Hematocrit (Bld) [Volume fraction] 42.4 % 37-47 [facility] Hemoglobin measurementOrdere d By: Jeannette Horvath on 08-18-2024 Hemoglobin (Bld) [Mass/Vol] 13.9 g/dL 12.0-15. 0 [facility] Immature granulocytes/100 WB C Auto (Bld)Ordered By: Jeannette Horvath on 08-18-2024 Immature granulocytes/100 WBC (Bld) 0.400 % 0.0-0.9 [facility] Comment on above: IG% - Immature Granu locytes (promyelocytes, myelocytes and metamyelocytes) > 1% indicates that a LEFT SHIFT is Present. International normalized rat io (INR) calculationOrdered By: Jeannette Horvath on 08-18-2024 INR Coag (Bld) [Relative time] 1.0 {INR} [facility] Laboratory - Chemistry and C hemistry - challengeOrdered By: Jeannette Horvath on 08-18-2024 AST [Catalytic activity/Vol] 16 U/L <32 [facility] MCV (mean corpuscular volume ) determinationOrdered By: Jeannette Horvath on 08-18-2024 MCV (RBC) [Entitic vol] 85.7 fL 81-99 [facility] Mean corpuscular hemoglobin (MCH) determinationOrdered By: Jeannette Horvath on 08-18-2024 MCH (RBC) [Entitic mass] 28.1 pg 27.0-32.0 [facility] Mean corpuscular hemoglobin concentration (MCHC) determinationOrdered By: Jeannette Horvath on 08-18-2024 MCHC (RBC) [Mass/Vol] 32.8 g/dL 32-36 [facility] Mean platelet volume determi nationOrdered By: Jeannette Horvath on 08-18-2024 Platelet mean volume (Bld) [Entitic vol] 9.5 fL 6.2-12.0 [facility] Monocyte percentageOrdered B y: Jeannette Horvath on 08-18-2024 Monocytes/100 WBC (Bld) 8.1 % 0-10 [facility] Neutrophil percentageOrdered By: Jeannette Horvath on 08-18-2024 Neutrophils/100 WBC (Bld) 66.3 % 47-70 [facility] Nucleated red blood cell per centageOrdered By: Jeannette Horvath on 08-18-2024 Nucleated RBC/100 WBC (Bld) [Ratio] 0 % 0-5 [facility] Platelet countOrdered By: Antonio Horvath on 08-18-2024 Platelets (Bld) [#/Vol] 342 10*3/uL 150-450 [facility] Potassium measurement (mass/ volume)Ordered By: Jeannette Horvath on 08-18-2024 Potassium (Unsp spec) [Mass/Vol] 4.2 mmol/L 3.3-5.1 [facility] Prothrombin Time w/INRon INR Coag (PPP) [Relative time] 1.0 {INR} Normal [facility] Comment on above: Performed By: #### L 3410.9992, L100.0100, L300.3900, L500.4050 ####[facility] [address] [place], [address] PT Coag (PPP) [Time] 13.0 s Normal 11.7-14.9 [facility] Comment on above: Performed By: #### L 3410.9992, L100.0100, L300.3900, L500.4050 ####[facility] [address] [place], [address] Prothrombin timeOrdered By: Jeannette Horvath on 08-18-2024 PT Coag (PPP) [Time] 13.0 s 11.7-14.9 [facility] RBC Auto (Bld) [#/Vol]Ordere d By: Jeannette Horvath on 08-18-2024 RBC (Bld) [#/Vol] 4.95 10*6/uL 4.2-5.4 [facility] Serum creatinine measurement (mass/volume)Ordered By: Jeannette Horvath on 08-18-2024 Creatinine [Mass/Vol] 0.68 mg/dL Low 0.70-1.20 [facility] Serum globulin measurementOr dered By: Jeannette Horvath on 08-18-2024 Globulin (S) [Mass/Vol] 3.5 g/dL 2.2-4.2 [facility] Serum glucose measurement (m ass/volume)Ordered By: Jeannette Horvath on 08-18-2024 Glucose [Mass/Vol] 117 mg/dL High 70-99 [facility] Serum or plasma alanine adorno otransferase (ALT) measurementOrdered By: Jeannette Horvath on 08-18-2024 ALT [Catalytic activity/Vol] 8 U/L <35 [facility] Serum or plasma albumin ki urement (mass/volume)Ordered By: Jeannette Horvath on 08-18-2024 Albumin [Mass/Vol] 3.9 g/dL 3.5-5.0 [facility] Serum or plasma albumin/glob ulin mass ratioOrdered By: Jeannette Horvath on 08-18-2024 Albumin/Globulin [Mass ratio] 1.1 {ratio} 0.9-2.4 [facility] Serum or plasma alkaline carson sphatase measurementOrdered By: Jeannette Horvath on 08-18-2024 ALP [Catalytic activity/Vol] 123 U/L High 35-104 [facility] Serum or plasma calcium ki urement (mass/volume)Ordered By: Jeannette Horvath on 08-18-2024 Calcium [Mass/Vol] 9.0 mg/dL 7.6-11.0 [facility] Serum or plasma urea nitroge n measurement (mass/volume)Ordered By: Jeannette Horvath on 08-18-2024 Urea nitrogen [Mass/Vol] 12 mg/dL 4-19 [facility] Sodium levelOrdered By: Dominga Horvath on 08-18-2024 Sodium [Moles/Vol] 141 mmol/L 133-145 [facility] Total proteinOrdered By: Rhianna Horvath on 08-18-2024 Protein [Mass/Vol] 7.4 g/dL 5.9-8.4 [facility] White blood cell (WBC) count Ordered By: Jeannette Horavth on 08-18-2024 WBC (Bld) [#/Vol] 7.4 10*3/uL 4.4-11.0 [facility] Gastroenterology Visit Repor ton 08-17-2024 Gastroenterology Visit Report [facility] Gastroenterology [address] [place] [address] OFFICE VISIT Date of Service: 08/17/24 MR#: [id number] Acct: [id number] Name: GILMA GARCIA Rep #: [id number] : 1970 Provider: JOAQUIN luna Age/Sex: 54/F [place] [facility] [place] Status: Signed Intake Vital Signs 07/20/24 10:14 08/17/24 08:24 Height 5 ft 3 in Weight: 185 lb 4 oz BP 177/91 H Blood Pressure Location Lt brachial Position Sitting Respiration 18 Pulse 55 L Pulse Source Monitor Temp 97.7 F L Temp Source Oral Pulse Oximetry (%) 95 Oxygen Delivery Method room air Intake Visit Reasons: FU Chief Complaint: F/U Allergies meloxicam (From Mobic) Allergy (Verified 08/17/24 08:21) Hives naproxen (From Naprosyn) Allergy (Verified 08/17/24 08:21) Hives codeine Adverse Reaction (Verified 08/17/24 08:21) Vomiting hydrocodone bitartrate (From Vicodin) Adverse Reaction (Verified 08/17/24 08:21) Nausea morphine Adverse Reaction (Verified 08/17/24 08:21) Chest tightness Medications ???Medication ???Instructions ???Recorded ???Confirmed ???Type metoprolol succinate 100 mg 100 mg PO DAILY 08/13/22 08/17/24 History capsule sprinkle, ext. release 24 hr cholecalciferol (vitamin D3) 1,250 1,250 mcg PO QWEEK 01/06/2408/06 History mcg (50,000 unit) capsule losartan 100 mg tablet 100 mg PO QDAY 01/06/24 08/17/24 H istory sertraline 50 mg tablet (Zoloft) 50 mg PO QDAY 01/06/24 08/17/24 Hi story calcium polycarbophil 625 mg 1,250 mg (2 x 625 mg) PO QDAY #180 08/17/24 08/17/24 Rx tablet (Fiber Laxative (calcium tabs polycarbophil)) pantoprazole 40 mg tablet,delayed 40 mg PO QDAY #90 tabs 08/17/24 0 08/17/24 Rx release Nurse's Note: Pt states she was seen a month ago and she feels about the same. Pt states she isnt having any issues or pain at this time. [facility] Medical History Hypertension Surgical History History of tonsillectomy History of hysterectomy History of cholecystectomy Social History Smoking Status: Former smoker Female Reproductive History Menstrual control method: other (partial hysterectomy - reports she has 1 ovary remaining) HPI HPI Chief Complaint: F/U Details: GILMA GARCIA, is a 54 F who presents to the office today for OV 07/20/2024 54-year-old female presents for follow-up of abdominal pain, constipation, diarrhea, urgency, fecal incontinence and elevated alkaline phosphatase. Abdominal ultrasound performed 06/16/2024 with elastography reveals moderate to severe hepatic fibrosis and diffuse fatty infiltration of the liver. Autoimmune workup thus far is unremarkable. ALP has been elevated dating back to at least 2018, GGT was recently normal indicating elevation is unlikely secondary to a hepatobiliary source. She reports discontinuing Questran and pantoprazole as these showed no improvement in her symptoms. Due to a change in insurance she did not complete previously ordered CT of the abdomen or stool testing. She has previously failed dicyclomine, lactulose, Linzess, and Metamucil in addition to recently failing cholestyramine and pantoprazole. She will complete sits marker testing as well as CT and stool testing which was ordered at last OV. I have recommended she start vitamin E daily and she will schedule consult with Dr. Jackson for liver changes noted on prior US. Patient Instructions: Sitz marker testing Complete CT and stool testing ordered at last OV Start Vitamin E daily Consult with Dr. Jackson for liver changes noted on prior US STOOL Fecal Calprotectin 08/07/2024 and 01/07/2024 normal C. Diff PCR 08/07/2024 negative Fecal Elastase 01/07/2024 normal LABS 06/08/2024 ALP 139, CRP 17.3 ANCA, AMA, ASMA negative Hepatitia A IgM 03/18/2018 negative HBVsAg 03/18/2018 negative HBV Core IgM 03/18/2018 negative HCV Ab 03/18/2018 negative Travon 03/18/2018 negative TTG IgA 01/06/2024 negative Endomysial IgA Ab 01/06/2024 negative Food Allergen Panel 01/06/2024 normal CBC 01/06/2024 HGB 14.7, PLT 388 Elastography reveals moderate to severe hepatic fibrosis and diffuse fatty infiltration of the liver. kPa 10.6 which suggests high probability of advanced fibrosis. Sitz Marker reveals normal colonic transit Colonoscopy was performed April 2023 (Dr. Curtis) mucosa appeared normal, no random biopsies obtained. Sigmoid serrated hyperplastic polyp. CCX 2015 Acute and chronic, hemorrhagic and ulcerated cholecystitis and focal cholesterolosis. No stones are identified in the container or in the gallbladder. PREVIOUSLY FAILED: dicyclomine - did not he (more content not included)... Normal [facility] Calprotectin, Stoolon [address] 11 ug/g Normal 0-120 [facility] Comment on above: Result Comment: Conc entration Interpretation Follow-Up < 5 - 50 ug/g Normal None >50 -120 ug/g Borderline Re-evaluate in 4-6 weeks >120 ug/g Abnormal Repeat as clinically indicated Performed at: [facility] [address] [id number] Cutter Operator Brick: Bety Koch MD, Phone: [phone] Performed By: #### L 7000.0700, T100.8244 #### [facility] [address] [place], [address] CDIFF (PCR)on 08-07-2024 CDIFF A positive C. difficile molecular test does not differentiate between an active C. difficile infection and C. difficile colonization. Use clinical judgement and paired toxin/antigen testing to identify true infection and need for treatment. C diff DNA Spec Ql LUIS ALFREDO+probe Reference Range: Negative Cepheid GeneXpert: polymerase chain reaction (PCR) 027 027 NAP1-B1 Presumptive Negative *for epidemiolologic???use C. Diff PCR Negative- No toxigenic C. Diff Detected Normal [facility] Comment on above: Performed By: #### L 7000.0700, M100.6796 #### [facility] [address] [place], [address] Calprotectin stoolOrdered By : Jeannette Horvath on 08-07-2024 Calprotectin stool 11 ug/g 0-120 [facility] Comment on above: Concentration Interp retation Follow-Up< 5 - 50 ug/g Normal None>50 -120 ug/g Borderline Re-evaluate in 4-6 weeks >120 ug/g Abnormal Repeat as clinically indicatedPerformed at: [facility] [address] [id number] Director: Bety Koch MD, Phone: [phone] Clostridium difficile detect ion by polymerase chain reactionOrdered By: Jeannette Horvath on 08-07-2024 C. difficile DNA LUIS ALFREDO+probe Ql (Unsp spec) [facility] Abdomen Single Viewon 2024 Abdomen Single View [facility] [address] [place] [address] Abdomen Single View MR#: [id number] Acct: [id number] Name: GILMA GARCIA Rep #: [id number] : 1970 F 54 From: Leigh Mckee DO PCP: Dr. Julita Collins MD Status: REG CLI Study: Abdomen Single View Date of Exam: 07/25/24 Exam# [id number] Ordering Dr: Jeannette Horvath CAR RUNNER- C PROCEDURE: ABDOMEN SINGLE VIEW 07/25/2024 REASON FOR EXAM: DAY 5 SITZ MARKER TECHNIQUE: Supine views of abdomen. COMPARISON: Radiograph of the abdomen dated 07/23/2024 FINDINGS: Bowel gas: Nonobstructive bowel gas pattern. Mild stool burden within the large bowel. No Sitz marker are demonstrated. Bilateral tubal clips are again identified. Calcifications: No suspicious calcifications. Bones: The bones are unremarkable. Other: RAD/Abdomen Single View IMPRESSION: No Sitz markers are demonstrated. Reading Location[facility] CC: JOAQUIN Horvath; Dr. Julita Collins MD Shop Lead: Signed Normal [facility] Abdomen Single Viewon 2024 Abdomen Single View [facility] [address] [place] [address] Abdomen Single View MR#: [id number] Acct: [id number] Name: GILMA GARCIA Rep #: [id number] : 1970 F 54 From: Eric maurer MD PCP: Dr. Julita Collins MD Status: REG CLI Study: Abdomen Single View Date of Exam: 07/23/24 Exam# [id number] Ordering Dr: Jeannette Horvath PROCEDURE: ABDOMEN SINGLE VIEW 07/23/2024 REASON FOR EXAM: DAY 3 SITZ MARKER TECHNIQUE: Single view abdomen. COMPARISON: CT scan on 03/30/2023. FINDINGS: Four Sitz markers are noted at the topography of the rectosigmoid colon. Mild amount of fecal residue in the large bowels. Bilateral tubal clips are again noted in the pelvis. Normal visualized lung bases. There is an unremarkable bowel gas pattern. There is no demonstrated free abdominal air. Normal visualized liver. Normal visualized spleen. Normal visualized kidneys. The soft tissue structures of the pelvis are unremarkable. Mild diffuse spondylosis. RAD/Abdomen Single View IMPRESSION: Four Sitz markers are noted at the topography of the rectosigmoid colon. Mild amount of fecal residue in the large bowels. Bilateral tubal clips are again noted in the pelvis. Reading Location[facility] CC: JOAQUIN Horvath; Dr. Julita Collins MD Shop Lead: Signed Normal [facility] ([id number]) 1970 F Date Time Provider Department 07/22/24 JULITA COLLINS During your visit today, we recorded the following information about you: Deena Youssef LPN 07/22/2024 8:53 AM Signed Patient needs a new order for xray of knee, originally ordered on 07/14/24. Order Thank you Deena Youssef LPN July 22, 2024 8:53 AM Shelli Mercado MA 07/24/2024 2:09 PM Signed Please see other result/follow up encounter 07/22/24. Shelli Mercado MA Allergies As of Date: 07/22/2024 Noted Allergy Reaction MOBIC (MELOXICAM) 10/24/2009 4 - Hives NAPROXEN 10/24/2009 8 - GI Upset PREDNISONE 11/07/2009 4 - Hives 12 - Shortness of Breath TYLENOL #3 (CODEINE) 10/24/2009 4 - Hives VICODIN (HYDROCODONE-ACETAMIN OPHE*09/27/2014 8 - GI Upset Comments: Nausea Date Reviewed: 07/14/2024 Reviewed by: Deena Youssef LPN - Fully Assessed Reason for Visit: Orders [681] Cmt: Xray knee Prescriptions as of 07/24/2024 - metoprolol succinate ER (TOPROL XL) 100 mg Take 1 tablet by mouth once daily. - sertraline (ZOLOFT) 50 mg tablet Take 1 tablet by mouth once daily. - losartan (COZAAR) 100 mg tablet Take 1 tablet by mouth once daily. DOSE CHANGE TAKE ONE DAILY - ergocalciferol 50,000 unit capsule (VITAMIN D2, DRISDOL) Take 1 capsule by mouth one time a week. - ibuprofen (MOTRIN) 800 mg tablet Take 1 tablet by mouth every 8 hours as needed for pain. Take with food. - acetaminophen (TYLENOL EXTRA STRENGTH) 500 mg tablet Take 2 tablets by mouth every 8 hours as needed for pain. - diclofenac (VOLTAREN ARTHRITIS PAIN) 1 % topical gel Apply 4 g to affected area four times daily. Problem List As Of Date 07/22/2024 Noted Resolved Hypertension, essential [I10] 10/24/2009 Chronic low back pain [M54.50, G89.29] 08/27/2014 Heavy menses [N92.0] 09/03/2014 10/20/2014 Abnormal uterine bleeding [N93.9] 09/03/2014 10/20/2014 Irregular bleeding [N92.6] 09/03/2014 10/20/2014 Mixed incontinence [N39.46] 05/11/2015 Contusion of lower back [S30.0XXA] 10/20/2021 Head injury [S09.90XA] 12/06/2021 Right shoulder pain [M25.511] 09/18/2022 Acute pain of left knee [M25.562] 12/19/2022 Acute hip pain, left [M25.552] 12/19/2022 Right wrist pain [M25.531] 01/31/2023 Altered bowel habits [R19.4] 04/25/2023 Traumatic coccydynia [M53.3] 05/29/2023 Status post fall [Z91.81] 05/29/2023 Encounter Status:Closed by JULITA COLLINS on 07/22/24 Normal [facility] XR KNEE 4V AP/PA BOTH+LAT/ME R LTon 07-22-2024 XR KNEE 4V AP/PA BOTH+LAT/ZEENAT LT * * *Final Report* * * DATE OF EXAM: Jul 22 2024 9:12AM WOX 5202 - XR KNEE 4V AP/PA BOTH+LAT/ZEENAT LT / PROCEDURE REASON: multiple diagnoses * * * * Physician Interpretation * * * * EXAMINATION / TECHNIQUE: XR KNEE 4V AP/PA BOTH+LAT/ZEENAT LT HISTORY: Chronic left knee pain, no known injury. Chronic pain of left knee Chronic pain of left knee COMPARISON: 06/14/21. RESULT: No acute fracture or osseous malalignment is identified. The joint spaces are preserved. No joint effusion. IMPRESSION: No acute bony abnormality. Shop Lead: PSCB Transcribe Date/Time: Jul 27 2024 7:26P Dictated by : CHRISTI OSPINA MD This examination was interpreted and the report reviewed and electronically signed by: CHRISTI OSPINA MD on Jul 27 2024 7:27PM EST [id number] N Normal [facility] DBT Breast - bilateral jeimye sarah 07-20-2024 IMPRESSION: There is no mammographic evidence of malignancy in either breast. Routine screening mammogram is recommended. Annual mammogram will be due in 1 year. BI-RADS Category 1: Negative RISK: Based on the Tyrer-Cuzick (TC) risk assessment model, this patient has a 14.6% lifetime risk of developing breast cancer, meaning they are at average risk for developing breast cancer. However, this is only an estimate based on available history provided on the patient's questionnaire. We encourage all patients to talk with their providers about these results, further recommendations for managing breast health, and appropriate supplemental screening options if the patient has dense breast tissue. Interpreting Radiologist: Barbara Alanis M.D. Electronically signed on: 07/20/2024 Shop Lead: MIKE Transcribe Date/Time: Jul 20 2024 7:39A Dictated by: BARBARA ALANIS MD This examination was interpreted and the report reviewed and electronically signed by: BARBARA ALANIS MD on Jul 20 2024 1:22PM [facility] DIVISION OF RADIOLOGY * * *Final Report* * * DATE OF EXAM: Jul 20 2024 8:05AM [facility] 0582 - BI SCREENING W GIULIA / PROCEDURE REASON: Encounter for screening mammogram for breast cancer * * * * Physician Interpretation * * * * RESULT: [place] [address] #[id number] - [facility] SCREENING W GIULIA HISTORY: 54 year-old patient seen for screening. Patient is asymptomatic in both breasts. Patient states no personal history of breast cancer. The patient has a family history of breast cancer. COMPARISON STUDIES: The present examination has been compared to prior imaging studies dated 11/27/2018 (mammogram), 02/05/2020 (mammogram), 02/06/2022 (mammogram) and 04/12/2023 (mammogram). MAMMOGRAM TECHNIQUE: The study was acquired using full field digital technology and interpreted from soft copy. Digital Breast Tomosynthesis (DBT) images were obtained and used to assist in the interpretation of this examination. MAMMOGRAM FINDINGS: There are scattered areas of fibroglandular density. No suspicious masses, calcifications or other abnormalities are seen in either breast. There are no significant interval changes. DIVISION OF RADIOLOGY Provider, [facility] Harini [facility] - 07/20/2024 * * *Final Report* * * DATE OF EXAM: Jul 20 2024 8:05AM W 0582 - [facility] SCREENING W GIULIA / PROCEDURE REASON: Encounter for screening mammogram for breast cancer * * * * Physician Interpretation * * * * RESULT: [address] [place] [address] [place] [address] #[id number] - [facility] SCREENING W GIULIA HISTORY: 54 year-old patient seen for screening. Patient is asymptomatic in both breasts. Patient states no personal history of breast cancer. The patient has a family history of breast cancer. COMPARISON STUDIES: The present examination has been compared to prior imaging studies dated 11/27/2018 (mammogram), 02/05/2020 (mammogram), 02/06/2022 (mammogram) and 04/12/2023 (mammogram). MAMMOGRAM TECHNIQUE: The study was acquired using full field digital technology and interpreted from soft copy. Digital Breast Tomosynthesis (DBT) images were obtained and used to assist in the interpretation of this examination. MAMMOGRAM FINDINGS: There are scattered areas of fibroglandular density. No suspicious masses, calcifications or other abnormalities are seen in either breast. There are no significant interval changes. IMPRESSION IMPRESSION: There is no mammographic evidence of malignancy in either breast. Routine screening mammogram is recommended. Annual mammogram will be due in 1 year. BI-RADS Category 1: Negative RISK: Based on the Tyrer-Cuzick (TC) risk assessment model, this patient has a 14.6% lifetime risk of developing breast cancer, meaning they are at average risk for developing breast cancer. However, this is only an estimate based on available history provided on the patient's questionnaire. We encourage all patients to talk with their providers about these results, further recommendations for managing breast health, and appropriate supplemental screening options if the patient has dense breast tissue. Interpreting Radiologist: Barbara Alanis M.D. Electronically signed on: 07/20/2024 Shop Lead: MIKE Transcribe Date/Time: Jul 20 2024 7:39A Dictated by: BARBARA ALANIS MD This examination was interpreted and the report reviewed and electronically signed by: BARBARA ALANIS MD on Jul 20 2024 1:22PM EST [facility] Radiology Study observation (narrative) [facility] DBT Breast - bilateral scree ningOrdered By: Ccf Provider on 07-20-2024 [facility] Gastroenterology Visit Repor ton 07-20-2024 Gastroenterology Visit Report [facility]enterology [address] [place] [address] OFFICE VISIT Date of Service: 07/20/24 MR#: [id number] Acct: [id number] Name: GILMA GARCIA Rep #: [id number] : 1970 Provider: JOAQUIN luna Age/Sex: 54/F [place] [facility] Status: Signed Intake Vital Signs 04/15/24 08:58 07/20/24 10:14 07/20/24 10:49 Height 5 ft 3 in 5 ft 3 in Weight: 187 lb 4 oz BMI 33.1 BP 172/101 H 170/96 H Respiration 16 Pulse 82 Pulse Oximetry (%) 96 Oxygen Delivery Method room air Intake Visit Reasons: Test Result Chief Complaint: abdominal pain, 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 release 24 hr cholecalciferol (vitamin D3) 1,250 1,250 mcg PO QWEEK 01/06/2407/07 History mcg (50,000 unit) capsule losartan 100 mg tablet 100 mg PO QDAY 01/06/24 07/20/24 H istory sertraline 50 mg tablet (Zoloft) 50 mg PO QDAY 01/06/24 07/20/24 Hi story Nurse's Note: Still having diarrhea that turns to constipation. Had blood on toilet paper when wiping on Saturday. [facility] Medical History Hypertension Surgical History History of tonsillectomy History of hysterectomy History of cholecystectomy Social History Smoking Status: Former smoker Female Reproductive History Menstrual control method: other (partial hysterectomy - reports she has 1 ovary remaining) HPI HPI Chief Complaint: abdominal pain, diarrhea Details: GILMA GARCIA, is a 54 F who presents to the office today for BP 172/101 OV 06/17/2024 53-year-old female presents for follow-up of abdominal pain, constipation, diarrhea, urgency, fecal incontinence. She previously denied any improvement with dicyclomine. She was started on Linzess 145mcg daily with Metamucil and increased dietary fiber intake for overflow diarrhea. She reports this made no improvement in her symptoms and discontinued. She is now having at least 3 watery stools daily with urgency and episodes of incontinence. She is waking at HS with abdominal cramping and diarrhea. She denies any fevers, night sweats, or bleeding. Consuming fried/fatty foods worsens diarrhea; h/o CCX 3-4 years ago. She was seen in ED March 2023 for c/o severe epigastric abdominal pain, she reports this pain is different from her current abdominal pain. CT completed 03/30/2023 revealed circumferential thickening of the TI, cecum and ascending colon. Colonoscopy was performed April 2023 (Dr. Curtis) mucosa appeared normal, no random biopsies obtained. Sigmoid serrated hyperplastic polyp. Fecal calprotectin and Elastase were WNL 01/07/2024. CRP elevated 11 on 01/06/2024. IBD serologies, celiac serologies and TSH was unremarkable. I will repeat CT at this time as well as fecal calprotectin. She will start Cholestyramine BID, we have discussed timing with other medications. She complains of chronic belching and intermittent heartburn. I have also started her on pantoprazole 40mg daily. ALP has been elevated dating back to at least 2018, GGT was recently normal indicating elevation is unlikely secondary to a hepatobiliary source. AMA, ASMA, and ANCA were also unremarkable. Patient Instructions: Start Questran BID Start pantoprazole 40mg Qday LABS 06/08/2024 ALP 139, normal AST/ALT, CRP 17.3, GGT 10 01/06/2024 PLT 388, ALP 130 03/20/2018 ALP 286, AST 75, ALT 201 pANCA: 06/08/2024 normal AMA: 06/08/2024 normal ASMA: 06/08/2024 normal HAV IgM: 03/18/2018 negative HBVsA03/18/2018 negative HBV Core: 03/18/2018 negative HCV Ab: 03/18/2018 negative ERCP 2018 (Kari) - The major papilla appeared normal. - A biliary sphincterotomy was performed. - The biliary tree was swept and duct was dilated but no stones were found. Did she repeat the CT: no Diarrhea: no improvement ABD cramping: no improvement Cholestyramine BID - discontinued HB: resolved Pantoprazole 40mg QD - she is still having some belching - denies any emesis - does have some nausea with abdominal pain ABD US 06/16/2024 Elastography reveals moderate to severe hepatic fib (more content not included)... Normal [facility] BI SCREENING W TOMOon 07-20 BI SCREENING W GIULIA * * *Final Report* * * DATE OF EXAM: Jul 20 2024 8:05AM [facility] 0582 - BI SCREENING W GIULIA / PROCEDURE REASON: Encounter for screening mammogram for breast cancer * * * * Physician Interpretation * * * * RESULT: [address] [address] [place] [id number] #[id number] - [facility] SCREENING W GIULIA HISTORY: 54 year-old patient seen for screening. Patient is asymptomatic in both breasts. Patient states no personal history of breast cancer. The patient has a family history of breast cancer. COMPARISON STUDIES: The present examination has been compared to prior imaging studies dated 11/27/2018 (mammogram), 02/05/2020 (mammogram), 02/06/2022 (mammogram) and 04/12/2023 (mammogram). MAMMOGRAM TECHNIQUE: The study was acquired using full field digital technology and interpreted from soft copy. Digital Breast Tomosynthesis (DBT) images were obtained and used to assist in the interpretation of this examination. MAMMOGRAM FINDINGS: There are scattered areas of fibroglandular density. No suspicious masses, calcifications or other abnormalities are seen in either breast. There are no significant interval changes. IMPRESSION: There is no mammographic evidence of malignancy in either breast. Routine screening mammogram is recommended. Annual mammogram will be due in 1 year. BI-RADS Category 1: Negative RISK: Based on the Tyrer-Cuzick (TC) risk assessment model, this patient has a 14.6% lifetime risk of developing breast cancer, meaning they are at average risk for developing breast cancer. However, this is only an estimate based on available history provided on the patient's questionnaire. We encourage all patients to talk with their providers about these results, further recommendations for managing breast health, and appropriate supplemental screening options if the patient has dense breast tissue. Interpreting Radiologist: Barbara Alanis M.D. Electronically signed on: 07/20/2024 Shop Lead: MIKE Transcribe Date/Time: Jul 20 2024 7:39A Dictated by: BARBARA ALANIS MD This examination was interpreted and the report reviewed and electronically signed by: BARBARA ALANIS MD on Jul 20 2024 1:22PM EST [id number] Normal [facility] Basic metabolic 2000 panelon 07-14-2024 Anion gap [Moles/Vol] 11 mmol/L Normal 8-15 [facility] Comment on above: Order Comment: Speci men Type: BLOOD SPECIMENOrdering Facility: [facility] Address: [address] [place] [address] [place] [address] Performed By: #### 2 4321-2 ####[facility] LABCLIA [id number] [facility] [address] [id number] [address] [place] Calcium [Mass/Vol] 9.8 mg/dL Normal 8.5-10.2 [facility] Comment on above: Order Comment: Speci men Type: BLOOD SPECIMENOrdering Facility: [facility] Address: [address] [place] [address] Performed By: #### 2 4321-2 ####[facility] LABCLIA [id number] [facility] [address] [place] [address] [place] Chloride [Moles/Vol] 102 mmol/L Normal 98-107 [facility] Comment on above: Order Comment: Speci men Type: BLOOD SPECIMENOrdering Facility: [facility] Address: [address] [place] [address] Performed By: #### 2 4321-2 ####[facility] LABCLIA [id number] [place] [id number] [place] CO2 [Moles/Vol] 27 mmol/L Normal 22-30 [facility] Comment on above: Order Comment: Speci men Type: BLOOD SPECIMENOrdering Facility: [facility] Address: [address] [place] [address] Performed By: #### 2 4321-2 ####[facility] LABCLIA [id number] [address] [address] [place] Creatinine [Mass/Vol] 0.70 mg/dL Normal 0.58-0.96 [facility] Comment on above: Order Comment: Speci men Type: BLOOD SPECIMENOrdering Facility: [facility] Address: [address] [place], [place] [id number] Performed By: #### 2 4321-2 ####[facility] LABCLIA [id number] [facility] [address] [address] [place] Creatinine and Glomerular filtration rate.predicted panel (S/P/Bld) 102 mL/min/1.73m??? Normal >=60 [facility] Comment on above: Order Comment: Dayan mclaughlin Type: BLOOD SPECIMENOrdering Facility: [facility] Address: [address] [place] [address] Result Comment: Cristal mated Glomerular Filtration Rate (eGFR) is calculated using the 2020 CKD-EPI creatinine equation. This equation utilizes serum creatinine, sex, and age as parameters. The creatinine assay has traceable calibration to isotope dilution-mass spectrometry. Refer to KDIGO guidelines for clinical interpretation. In patients with unstable renal function, e.g. those with acute kidney injury, the eGFR may not accurately reflect actual GFR. Performed By: #### 2 4321-2 ####[facility] [id number] [place] [address] [place] Glucose [Mass/Vol] 112 mg/dL High 74-99 [facility] Comment on above: Order Comment: Dayan mclaughlin Type: BLOOD SPECIMENOrdering Facility: [facility] Address: [address] [place] [address] Result Comment: The [place] Diabetes Association (ADA) provides guidance for cutoff values for fasting glucose and random glucose. The ADA defines fasting as no caloric intake for at least 8 hours. Fasting plasma glucose results between 100 to 125 mg/dL indicate increased risk for diabetes (prediabetes). Fasting plasma glucose results greater than or equal to 126 mg/dL meet the criteria for diagnosis of diabetes. In the absence of unequivocal hyperglycemia, results should be confirmed by repeat testing. In a patient with classic symptoms of hyperglycemia or hyperglycemic crisis, random plasma glucose results greater than or equal to 200 mg/dL meet the criteria for diagnosis of diabetes. Reference: Standards of Medical Care in Diabetes 2016, [place] Diabetes Association. Diabetes Care. 2016.39(Suppl 1). Performed By: #### 2 4321-2 ####[facility] [id number] [place] [address] [place] Potassium [Moles/Vol] 4.3 mmol/L Normal 3.7-5.1 [facility] Comment on above: Order Comment: Dayan mclaughlin Type: BLOOD SPECIMENOrdering Facility: [facility] Address: [address] [id number] Performed By: #### 2 4321-2 ####[facility] LABIA [id number] [place] [id number] [place] Sodium [Moles/Vol] 140 mmol/L Normal 136-144 [facility] Comment on above: Order Comment: Speci men Type: BLOOD SPECIMENOrdering Facility: [facility] Address: [address] [place] [address] Performed By: #### 2 4321-2 ####[facility] LABIA [id number] [place] [id number] [place] Urea nitrogen [Mass/Vol] 12 mg/dL Normal 7-21 [facility] Comment on above: Order Comment: Speci men Type: BLOOD SPECIMENOrdering Facility: [facility] Address: [address] [place] [address] Performed By: #### 2 4321-2 ####[facility] LABIA [id number] [place] [id number] [place] EARL CNOVon 07-14-2024 CNOV Office Visit (INTMWS ) RADHAGILMA C ([id number]) 1970 F Date Time Provider Department 07/14/24 9:20 AM JULITA COLLINS INTMWS During your visit today, we recorded the following information about you: Pulse Blood pressure Weight 72/minute 129/83 85.8 kg Julita Collins MD 07/14/2024 8:27 PM Signed Reason for Visit Knee pain FELIPE Dillard is a 54-year-old female with a history of HTN, arthritis, and liver fibrosis, presenting with left knee pain and instability. Gilma reports several months of left knee pain and instability, describing a popping sensation and episodes of the knee giving out, particularly when ascending or descending stairs. She denies any recent falls due to this issue but mentions catching herself to prevent falls. The right knee is asymptomatic. She has attempted exercises to alleviate the pain without success and has tried ibuprofen and Advil, which provided no relief. She denies current use of a knee brace. She also reports intermittent back pain, particularly in the mornings, which she attributes to a previous injury and arthritis diagnosed years ago. She denies sciatica, chronic back pain, numbness, or tingling. Additionally, she has a history of liver fibrosis, diagnosed after an ultrasound in March following symptoms of abdominal pain and constipation. She is under the care of a manager medicare and has an upcoming appointment next week. She reports severe constipation, unrelieved by Linzess, and has experienced fecal incontinence. She is uncertain if these symptoms are related to her liver condition. She mentions a history of elevated C-reactive protein levels, with a recent measurement of 17 mg/L. She is currently not taking any medication for her liver condition due to adverse effects. Gilma has decided to apply for Social Security and not return to work due to her health issues. She reports poor sleep and did not take her antihypertensive medication this morning. She monitors her blood pressure at home, with recent readings around 130/80 mmHg. She had blood work done this morning, including an A1c test. Social History Tobacco Use Smoking status: Never Smokeless tobacco: Never Vaping Use Vaping status: Never Used Substance Use Topics Alcohol use: No Drug use: No Past medical history, appointments, medications, allergies reviewed. Pertinent Lab/Diagnostic Studies are reviewed and discussed today Current Outpatient Medications: metoprolol succinate ER (TOPROL XL) 100 mg sertraline (ZOLOFT) 50 mg tablet losartan (COZAAR) 100 mg tablet ergocalciferol 50,000 unit capsule (VITAMIN D2, DRISDOL) ibuprofen (MOTRIN) 800 mg tablet acetaminophen (TYLENOL EXTRA STRENGTH) 500 mg tablet diclofenac (VOLTAREN ARTHRITIS PAIN) 1 % topical gel Health Maintenance Depression Screening Anxiety Screening HIV Screening BP Controlled (<130/80) Hepatitis B Vaccine(1 of 3 - 19+ 3-dose series) Colorectal Cancer Screening DTaP,Tdap,Td Vaccine(2 - Td or Tdap) Shingrix Vaccine(1 of 2) Pneumococcal Vaccine: 50+(2 of 2 - PCV) Influenza Vaccine(1) Covid-19 Vaccine( - season) Mammogram Screening@ Review Of Systems Constitutional: (+) sleep disturbance Gastrointestinal: (+) painful bowel movements, (+) rectal bleeding, (+) fecal incontinence Musculoskeletal: (+) left knee pain, (+) left knee instability, (+) back pain Skin: (+) dryness Neurological: (-) numbness/tingling, (-) sciatica Physical Exam BP 129/83 Pulse 72 Wt 85.8 kg (189 lb 3.2 oz) LMP 09/26/2014 (Exact Date) SpO2 97% BMI 32.70 kg/m? GENERAL: NAD, alert and oriented. SKIN: Dry skin noted on lower extremities, no rash or skin lesions. HEAD: Normocephalic. EYES: PERRLA, EOMI, conjunctiva clear. NECK: Supple, no lymphadenopathy, normal thyroid, no carotid bruits. LUNGS: Clear to auscultation bilaterally, no wheezes/rhonchi/rales . HEART: Regular rate and rhythm, no murmurs. No ectopy. EXTREMITIES: No deformities, no skin discoloration, no edema. Left knee with no effusion, full range of motion, no pain on palpation of joint line. NEURO: Awake, alert and oriented x3, cranial nerves II-XII grossly intact, normal gait, no involuntary motions. Labs: - CRP: 17 (elevated) - Stool analysis: No abnormal findings Imaging: - Ultrasound (liver): Findings consistent with moderate to severe hepatic steatosis or fibrosis Assessment and Plan 1. Chronic pain of left knee (M25.562) Left knee pain with episodes of popping and giving out, particularly when ascending and descending stairs. No effusion or significant tenderness on examination. Suspected degenerative changes. - Ordered X-ray of the left knee to evaluate for degenerative changes. - Recommended use of a knee brace to provide support and reduce pain. - Referred to physical therapy for strengthening and stabil (more content not included)... Normal [facility] HbA1c (Bld)on 07-14-2024 Average glucose Estimated from glycated hemoglobin (Bld) [Mass/Vol] 128 mg/dL Normal [facility] Comment on above: Order Comment: Speci men Type: BLOOD SPECIMENOrdering Facility: [facility] Address: [address] [id number] Result Comment: eAG: (Estimated average glucose) is a calculated value from HgbA1c and is footwear sales representative of the average blood glucose level in the last 2-3 month period. Performed By: #### 5 5454-3 ####[facility] LABIA [id number] [address] [address] [place] HbA1c (Bld) [Mass fraction] 6.1 % High 4.3-5.6 [facility] Comment on above: Order Comment: Dayan mclaughlin Type: BLOOD SPECIMENOrdering Facility: [facility] Address: [address] [place] [address] Result Comment: Nellie ican Diabetes Association guidelines indicate that patients with HgbA1c in the range 5.7-6.4% are at increased risk for development of diabetes, and intervention by lifestyle modification may be beneficial. HgbA1c greater or equal to 6.5% is considered diagnostic of diabetes. Performed By: #### 5 5454-3 ####[facility] LABCLIA [id number] [address] [address] [place] Gastroenterology Visit Repor ton 06-17-2024 Gastroenterology Visit Report [facility] Gastroenterology [address] [place] [address] OFFICE VISIT Date of Service: 06/17/24 MR#: [id number] Acct: [id number] Name: GILMA GARCIA RODERICK Rep #: [id number] : 1970 Provider: JOAQUIN luna Age/Sex: 53/F [place] [facility] [place] Status: Signed Intake Vital Signs 04/15/24 08:58 Height 5 ft 3 in Weight: 190 lb 2 oz BMI 33.7 BP 165/82 H Respiration 18 Pulse 78 Pulse Oximetry (%) 93 Oxygen Delivery Method room air Intake Visit Reasons: 6 wk FU Chief Complaint: abdominal pain, 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 release 24 hr cholecalciferol (vitamin D3) 1,250 1,250 mcg PO QWEEK 01/06/2406/06 History mcg (50,000 unit) capsule losartan 100 mg tablet 100 mg PO QDAY 01/06/24 06/17/24 H istory sertraline 50 mg tablet (Zoloft) 50 mg PO QDAY 01/06/24 06/17/24 Hi story hydrocortisone 2.5 % topical cream 1 applic AK QD-BID PRN rectal pa in 04/15/24 06/17/24 Rx with perineal applicator #30 grams cholestyramine-aspart brittni 4 gram 4 g PO BID #60 ea 06/17/24 5 Rx oral powder for susp in a packet (Cholestyramine Light) pantoprazole 40 mg tablet,delayed 40 mg PO QDAY #90 tabs 06/17/24 0 06/17/24 Rx release Nurse's Note: Stopped taking Linzess because it didn't help at all. [facility] Medical History Hypertension Surgical History History of tonsillectomy History of hysterectomy History of cholecystectomy Social History Smoking Status: Former smoker Female Reproductive History Menstrual control method: other (partial hysterectomy - reports she has 1 ovary remaining) HPI HPI Chief Complaint: abdominal pain, diarrhea Details: GILMA GARCIA, is a 53 F who presents to the office today for OV 04/15/2024 53y/o female presents for follow-up of abdominal pain. She was last seen by AIDAN Stone on 01/06/2024 for complaints of abdominal pain and diarrhea. CT completed 03/30/2023 revealed circumferential thickening of the TI, cecum and ascending colon. Colonoscopy was performed April 2023 (Dr. Curtis) mucosa appeared normal, no random biopsies obtained. Sigmoid serrated hyperplastic polyp. Fecal calprotectin and Elastase were WNL 01/07/2024. CRP elevated 11 on 01/06/2024. IBD serologies, celiac serologies and TSH was unremarkable. Labs do reveal a mildly elevated ALP 130. She c/o constipation, diarrhea, urgency, fecal incontinence and abdominal pain. She denies any improvement with dicyclomine. I have reviewed her diet and recommend a high fiber diet with the addition of prunes and metamucil daily. I have also encouraged she reduce caffeine intake and increase water intake. We have discussed diarrhea and fecal incontinence being a result of overflow diarrhea and she will start Linzess 145mcg daily. In terms of liver steatosis seen on prior CT and elevated ALP, I have ordered an ABD US/Elastography and labs. She will follow-up in 6 weeks. Patient Instructions: 1. Increase water intake 2. Increase daily dietary fiber intake - prunes daily 3. Start Metamucil 2tsp once a day in 8 ounces of water after lunch - may take up to 3 weeks before you notice any improvement 4. Start Linzess 145mcg daily - take 30 minutes before breakfast every morning 5. Complete labs and Abdominal US 6. Start Anusol (hydrocortisone) cream for rectal pain - RX sent to your pharmacy 7. Follow-up in 6 weeks LABS 06/08/2024 ALP 139, CRP 17.3 - reports her knees pop and almost give out on her 01/06/2024 ALP 130, CRP 11 03/30/2023 ALP 137 ASMA 06/08/2024 normal AMA 06/08/2024 normal ANCA 06/08/2024 normal GGT 06/08/2024 normal (10) ABD US 06/16/2024 - not yet read Elastography 06/16/2024 - not yet read - she discontinued Linzess - reports it was not doing anything for her - states she just stopped the Linzess - states it did not do anything for her - Metamucil - stopped this - reports she is going to quit her job due to diarrhea - too much time in the bathroom and is considering filing for disability - reports she was constipated (more content not included)... Normal [facility] ABD Limited w/ Elastographyo n 06-16-2024 ABD Limited w/ Elastography [facility] Imaging Services [address] [place], [place] [id number] ABD Limited w/ Elastography MR#: [id number] Acct: [id number] Name: GILMA GARCIA Rep #: [id number] : 1970 F 53 From: Willi zimmer MD PCP: Dr. Julita Collins MD Status: REG CLI Study: ABD Limited w/ Elastography Date of Exam: 06/06 05/02 Exam# [id number] Ordering Dr: Jeannette Horvath CAR RUNNER- C PROCEDURE: ABD LIMITED W/ ELASTOGRAPHY REASON FOR EXAM: FATTY LIVER COMPARISON: March 30, 2023. TECHNIQUE: Right upper quadrant abdominal ultrasound. Sonya ElastQ Imaging shear wave elastography for non- invasive assessment of liver tissue stiffness. Sonya EPIQ Elite. FINDINGS: LIVER: Size: Unremarkable Length: 15.4 cm Echotexture: Diffusely echogenic suggesting fatty infiltration Contour: Normal Lesions: None identified Elastography: EQI Med: 10.6 kPa EQI Med Ravi: 1.87 m/s IQR/Med: 15 %* GALLBLADDER: Surgically absent. COMMON BILE DUCT: Normal it measures 6 mm.. PANCREAS: Obscured by bowel gas. Visualized portions of the right kidney are unremarkable. No right upper quadrant ascites. US/ABD Limited w/ Elastography IMPRESSION: MODERATE TO SEVERE HEPATIC FIBROSIS Diffuse fatty infiltration of the liver. Reference Values: SRU <1.37 m/s (5.7kPa): No to mild fibrosis 1.37 m/s - 2.2 m/s: Moderate to severe fibrosis >2.2 m/s (15kPa): Significant fibrosis / cirrhosis METAVIR Score F2 or higher: 1.34 m/s (5.7kPa) F3 or higher: 1.55 m/s (7.3kPa) F4: 1.80 m/s (10kPa) * If the IQR/Med is >30%, the variance in the measurements is a large and the accuracy of the measurement may be in question. Reading Location: [place] [address] CC: JOAQUIN Horvath; Dr. Julita Collins MD Shop Lead: Signed Normal [facility] ANCAon 06-09-2024 Atypical pANCA <1:20 Normal Neg:<1:20 [facility] Comment on above: Result Comment: The atypical pANCA pattern has been observed in a significant percentage of patients with ulcerative colitis, primary sclerosing cholangitis and autoimmune hepatitis. Performed By: #### L 7000.0700, M100.6796 #### [facility] Laboratory [address] [place], [place], [id number] Cytoplasmic Ab <1:20 Normal Neg:<1:20 [facility] Comment on above: Performed By: #### L 7000.0700, M100.6796 #### [facility] [address] [place], [place], [address] [phone] Perinuclear Ab. <1:20 Normal Neg:<1:20 [facility] Comment on above: Result Comment: The presence of positive fluorescence exhibiting P-ANCA or C-ANCA patterns alone is not specific for the diagnosis of Frida's Granulomatosis (WG) or microscopic polyangiitis. Decisions about treatment should not be based solely on ANCA IFA results. The International ANCA Group Consensus recommends follow up testing of positive sera with both AK- 3 and MPO-ANCA enzyme immunoassays. As many as 5% serum samples are positive only by EIA. Ref. AM J Clin Pathol 1999;111:507-513. Performed By: #### L 7000.0700, M100.6796 #### [facility] [address] [place], [place], [address] Anti-Mitochondrial ABon ANTIMITOCHON AB <20.0 Normal 0.0-20.0 [facility] Comment on above: Result Comment: Nega tive 0.0 - 20.0 Equivocal 20.1 - 24.9 Positive >24.9 Mitochondrial (M2) Antibodies are found in 90-96% of patients with primary biliary cirrhosis. Performed at: [address] [id number] Cutter Operator Brick: Mil Waggoner PhD, Phone: [phone] Performed By: #### L 803.2200, L501.5101, L501.6710, L500.3400, L3300.1200, L222.1288 #### [facility] [address] [place], [address] Anti-Smooth Muscle ABSon ANTISMOOTH MUSC 7 Units Normal 0-19 [facility] Comment on above: Result Comment: Nega tive 0 - 19 Weak positive 20 - 30 Moderate to strong positive >30 Actin Antibodies are found in 52-85% of patients with autoimmune hepatitis or chronic active hepatitis and in 22% of patients with primary biliary cirrhosis. Performed By: #### L 7000.0700, M100.6796 #### [facility] [address] [place], [address] L501.5101on 06-09-2024 GGTP 10 IU/L Normal 0-60 [facility] Comment on above: Result Comment: Perf ormed at: [address] [id number] Cutter Operator Brick: Mil Waggoner PhD, Phone: [phone] Performed By: #### L 803.2200, L501.5101, L501.6710, L500.3400, L3300.1200, L521.1287 #### [facility] [address] [place], [address] Actin IgG QnOrdered By: Dominga Horvath on 06-08-2024 Anti-Smooth Muscle Antibody 7 Units 0-19 [facility] Comment on above: Negative 0 - 19 Weak positive 20 - 30 Moderate to strong positive >30 Actin Antibodies are found in 52-85% of patients with autoimmune hepatitis or chronic active hepatitis and in 22% of patients with primary biliary cirrhosis. Atypical perinuclear antineu trophil cytoplasmic antibodies measurementOrdered By: Jeannette Horvath on 06-08-2024 Atypical p-ANCA <1:20 titer Neg:<1:20 [facility] Comment on above: The atypical pANCA p attern has been observed in asignificant percentage of patients with ulcerative colitis,primary sclerosing cholangitis and autoimmune hepatitis. Bilirubin directOrdered By: Jeannette Horvath on 06-08-2024 Bilirubin.direct [Mass/Vol] 0.15 mg/dL 0.00-0.3 0 [facility] Bilirubin, totalOrdered By: Jeannette Horvath on 06-08-2024 Bilirubin [Mass/Vol] 0.36 mg/dL 0.00-1.30 [facility] CRPon 06-08-2024 C-REACTIVE PROT 17.30 mg/L High 0.0-3.0 [facility] Comment on above: Performed By: #### L 803.2200, L501.5101, L501.6710, L500.3400, L3300.1200, L800.1280 #### [facility] [address] [place] [address], [address] CRP [Mass/Vol]Ordered By: Antonio Horvath on 06-08-2024 C-Reactive Protein Extended Range 17.30 mg/L High 0.0-3.0 [facility] Gamma glutamyl transferase ( GGT) measurementOrdered By: Jeannette Horvath on 06-08-2024 Amylase [Catalytic activity/Vol] 10 U/L 0-60 [facility] Comment on above: Performed at: [facility] [address] [id number] Director: Mil Waggoner PhD, Phone: [phone] Laboratory - Chemistry and C hemistry - challengeOrdered By: Jeannette Horvath on 06-08-2024 AST [Catalytic activity/Vol] 18 U/L <32 [facility] Liver Profileon 06-08-2024 Albumin [Mass/Vol] 4.3 g/dL Normal 3.5-5.0 [facility] Comment on above: Performed By: #### L 803.2200, L501.5101, L501.6710, L500.3400, L3300.1200, L800.1280 #### [facility] [address] [place], [address] ALK PHOS 139 U/L High 35-104 [facility] Comment on above: Performed By: #### L 803.2200, L501.5101, L501.6710, L500.3400, L3300.1200, L800.1280 #### [facility] [address] [place], [address] ALT [Catalytic activity/Vol] 10 U/L Normal <=34 [facility] Comment on above: Performed By: #### L 803.2200, L501.5101, L501.6710, L500.3400, L3300.1200, L800.1280 #### [facility] [address] [place], [address] AST [Catalytic activity/Vol] 18 U/L Normal <=31 [facility] Comment on above: Performed By: #### L 803.2200, L501.5101, L501.6710, L500.3400, L3300.1200, L800.1280 #### [facility] [address] [place], [address] Bilirubin [Mass/Vol] 0.36 mg/dL Normal 0.00-1.30 [facility] Comment on above: Performed By: #### L 803.2200, L501.5101, L501.6710, L500.3400, L3300.1200, L800.1280 #### [facility] [address] [place], [address] Bilirubin.direct [Mass/Vol] 0.15 mg/dL Normal 0.00-0.3 0 [facility] Comment on above: Performed By: #### L 803.2200, L501.5101, L501.6710, L500.3400, L3300.1200, L800.1280 #### [facility] [address] [place], [address] Globulin (S) [Mass/Vol] 3.6 g/dL Normal 2.2-4.2 [facility] Comment on above: Performed By: #### L 803.2200, L501.5101, L501.6710, L500.3400, L3300.1200, L800.1280 #### [facility] [address] [place], [address] T PROT 7.9 g/dL Normal 5.9-8.4 [facility] Comment on above: Performed By: #### L 803.2200, L501.5101, L501.6710, L500.3400, L3300.1200, L800.1280 #### [facility] [address] [place], [address] Mitochondria Ab Ql (S)Ordere d By: Jeannette Horvath on 06-08-2024 Anti-Mitochondrial Antibody <20.0 Units 0.0-20. 0 [facility] Comment on above: Negative 0.0 - 20.0 Equivocal 20.1 - 24.9 Positive >24.9Mitochondrial (M2) Antibodies are found in 90-96% ofpatients with primary biliary cirrhosis.Performed at: [address] [id number] Director: Mil Waggoner PhD, Phone: [phone] Neutrophil cytoplasmic Ab.cl assic Qn (S)Ordered By: Jeannette Horvath on 06-08-2024 Cytoplasmic ANCA (c-ANCA) Antibody <1:20 titer Neg:<1:20 [facility] Neutrophil cytoplasmic Ab.pe rinuclear IF (S) [Titer]Ordered By: Jeannette Horvath on 06-08-2024 Perinuclear ANCA (p-ANCA) Antibody <1:20 titer Neg:<1:20 [facility] Comment on above: The presence of posi tive fluorescence exhibiting P-ANCA orC-ANCA patterns alone is not specific for the diagnosis ofWegener's Granulomatosis (WG) or microscopic polyangiitis.Decisions about treatment should not be based solely onANCA IFA results. The International ANCA Group Consensusrecommends follow up testing of positive sera with both AK-3 and MPO-ANCA enzyme immunoassays. As many as 5% serumsamples are positive only by EIA. Ref. AM J Clin Thgcdk9573;111:507-513. Serum classic neutrophil cyt oplasmic antibody assay (units/volume)Ordered By: Jeannette Horvath on 06-08-2024 Neutrophil cytoplasmic Ab.classic Qn (S) <1:20 titer Neg:<1:20 [facility] Serum globulin measurementOr dered By: Jeannette Horvath on 06-08-2024 Globulin (S) [Mass/Vol] 3.6 g/dL 2.2-4.2 [facility] Serum mitochondria antibody detectionOrdered By: Jeannette Horvath on 06-08-2024 Mitochondria Ab Ql (S) <20.0 Units 0.0-20.0 [facility] Comment on above: Negative 0.0 - 20.0 Equivocal 20.1 - 24.9 Positive >24.9Mitochondrial (M2) Antibodies are found in 90-96% ofpatients with primary biliary cirrhosis.Performed at: [facility] [id number] Director: Mil Waggoner PhD, Phone: [phone] Serum or plasma C reactive p rotein measurement (mass/volume)Ordered By: Jeannette Horvath on 06-08-2024 CRP [Mass/Vol] 17.30 mg/L High 0.0-3.0 [facility] Serum or plasma actin IgG an tibody assay (units/volume)Ordered By: Jeannette Horvath on 06-08-2024 Actin IgG Qn 7 Units 0-19 [facility] Comment on above: Negative 0 - 19 Weak positive 20 - 30 Moderate to strong positive >30 Actin Antibodies are found in 52-85% of patients with autoimmune hepatitis or chronic active hepatitis and in 22% of patients with primary biliary cirrhosis. Serum or plasma alanine adorno otransferase (ALT) measurementOrdered By: Jeannette Horvath on 06-08-2024 ALT [Catalytic activity/Vol] 10 U/L <35 [facility] Serum or plasma albumin ki urement (mass/volume)Ordered By: Jeannette Horvath on 06-08-2024 Albumin [Mass/Vol] 4.3 g/dL 3.5-5.0 [facility] Serum or plasma alkaline carson sphatase measurementOrdered By: Jeannette Horvath on 06-08-2024 ALP [Catalytic activity/Vol] 139 U/L High 35-104 [facility] Serum perinuclear neutrophil cytoplasmic antibody titer by immunofluorescenceOrdered By: Jeannette Horvath on 06-08-2024 Neutrophil cytoplasmic Ab.perinuclear IF (S) [Titer] <1:20 titer Neg:<1:20 [facility] Comment on above: The presence of posi tive fluorescence exhibiting P-ANCA orC-ANCA patterns alone is not specific for the diagnosis ofWegener's Granulomatosis (WG) or microscopic polyangiitis.Decisions about treatment should not be based solely onANCA IFA results. The International ANCA Group Consensusrecommends follow up testing of positive sera with both AK-3 and MPO-ANCA enzyme immunoassays. As many as 5% serumsamples are positive only by EIA. Ref. AM J Clin Vffmzi5252;111:507-513. Total proteinOrdered By: Rhianna Horvath on 06-08-2024 Protein [Mass/Vol] 7.9 g/dL 5.9-8.4 [facility] Gastroenterology Visit Repor ton 04-15-2024 Gastroenterology Visit Report [facility] Gastroenterology [address] [place] [address] OFFICE VISIT Date of Service: 04/15/24 MR#: [id number] Acct: [id number] Name: GILMA GARCIA Rep #: [id number] : 1970 Provider: JOAQUIN luna Age/Sex: 53/F Location: [facility] [place] Status: Signed Intake Vital Signs 07/18/23 21:40 04/15/24 08:58 Height 5 ft 3 in 5 ft 3 in Weight: 190 lb 2 oz BMI 33.7 BP 165/82 H Respiration 18 Pulse 78 Pulse Oximetry (%) 93 Oxygen Delivery Method room air Intake Visit Reasons: 3 M FU Chief Complaint: abdominal pain, diarrhea, crohns 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 release 24 hr cholecalciferol (vitamin D3) 1,250 1,250 mcg PO QWEEK 01/06/24 04/15/24 History mcg (50,000 unit) capsule losartan 100 mg tablet 100 mg PO QDAY 01/06/24 04/15/24 History sertraline 50 mg tablet (Zoloft) 50 mg PO QDAY 01/06/24 04/15/24 History hydrocortisone 2.5 % topical cream 1 applic AK QD-BID PRN rectal pain 04/15/24 04/15/24 Rx with perineal applicator #30 grams linaclotide 145 mcg capsule 145 mcg PO QAM #30 caps 04/15/24 04/15/24 Rx (Linzess) Nurse's Note: Stomach hurts everyday and unable to get to the bathroom quick enough, on FMLA because of that. PRN dicyclomine is not helping for the pain. Confused about if she has Crohns or not. [facility] Medical History Hypertension Surgical History History of tonsillectomy History of hysterectomy History of cholecystectomy Social History Smoking Status: Former smoker Female Reproductive History Menstrual control method: other (partial hysterectomy - reports she has 1 ovary remaining) HPI HPI Chief Complaint: abdominal pain, diarrhea, crohns Details: GILMA GARCIA, is a 53 F who presents to the office today for - March 2023 she was having abdominal pain and emesis and this is when CT was performed CT Abdomen/pelvis 03.30.23; Abnormal circumferential thickening and edema of the terminal ilium, cecum and ascending colon with surrounding mesenteric stranding and mild ascites, consistent with inflammatory bowel disease/Crohn's disease. - Fatty liver - s/o CCX, CBD WNL She c/o constipation, diarrhea, urgency, fecal incontinence and abdominal pain. She denies any improvement with dicyclomine. - reports stools alternate between constipation and diarrhea - constipation for her is a couple days without a BM and then when she does have a BM it is diarrhea - she c/o rectal pain with a BM - like pooping glass - she reports possible blood on toilet tissue - she experiences generalized cramping abdominal pain with diarrhea and improves after a BM - she does not feel like she is fully evacuating - prior to March 2023 she reports her stools were normal - normal for her was a BM every day without diarrhea and no associated pain - she denies any weight loss - reports she has nausea when she is constipated CBC 01/06/2024 HGB WNL ESR 01/06/2024 WNL CMP 01/06/2024 ALP 130, Glucose 124 (ALP is down from 286 March 2018) CRP 01/06/2024 (H) 11 TSH 01/06/2024 WNL IBD serologies were negative 01/06/2024 LDH 01/06/2024 negative B: coffee, bagel L: skips or snacks D: starch, protein, vegetable - she is not taking any fiber supplements - she is not taking a probiotic - water intake is poor - denies any alcohol - 3 cans of mountain dew daily - denies any NSAIDS - denies any HB - out on FMLA unable to work due to diarrhea and 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 Pt did not schedule at this time. Allergies As of Date: 01/31/2024 Noted Allergy Reaction MOBIC (MELOXICAM) 10/24/2009 4 - Hives NAPROXEN 10/24/2009 8 - GI Upset PREDNISONE 11/07/2009 4 - Hives 12 - Shortness of Breath TYLENOL #3 (CODEINE) 10/24/2009 4 - Hives VICODIN (HYDROCODONE-ACETAMIN OPHE*09/27/2014 8 - GI Upset Comments: Nausea Date Reviewed: 10/22/2023 Reviewed by: Shaylee Turner LPN - Fully Assessed Reason for Visit: 2 Step TB Test [Other] Prescriptions as of 01/31/2024 - losartan (COZAAR) 100 mg tablet Take 1 tablet by mouth once daily. DOSE CHANGE TAKE ONE DAILY - sertraline (ZOLOFT) 50 mg tablet Take 1 tablet by mouth once daily. - ergocalciferol 50,000 unit capsule (VITAMIN D2, DRISDOL) Take 1 capsule by mouth one time a week. - triamcinolone acetonide (KENALOG) 0.1 % cream Apply 1 application to affected area three times a day. Apply sparingly to area for rash/itching. - ibuprofen (MOTRIN) 800 mg tablet Take 1 tablet by mouth every 8 hours as needed for pain. Take with food. - acetaminophen (TYLENOL EXTRA STRENGTH) 500 mg tablet Take 2 tablets by mouth every 8 hours as needed for pain. - metoprolol succinate ER (TOPROL XL) 100 mg take 1 tablet by mouth every day - diclofenac (VOLTAREN ARTHRITIS PAIN) 1 % topical gel Apply 4 g to affected area four times daily. - polyethylene glycol 3350 (MIRALAX) 17 gram/dose powder For colonoscopy prep Problem List As Of Date 01/31/2024 Noted Resolved Hypertension, essential [I10] 10/24/2009 Chronic low back pain [M54.50, G89.29] 08/27/2014 Heavy menses [N92.0] 09/03/2014 10/20/2014 Abnormal uterine bleeding [N93.9] 09/03/2014 10/20/2014 Irregular bleeding [N92.6] 09/03/2014 10/20/2014 Mixed incontinence [N39.46] 05/11/2015 Contusion of lower back [S30.0XXA] 10/20/2021 Head injury [S09.90XA] 12/06/2021 Right shoulder pain [M25.511] 09/18/2022 Acute pain of left knee [M25.562] 12/19/2022 Acute hip pain, left [M25.552] 12/19/2022 Right wrist pain [M25.531] 01/31/2023 Altered bowel habits [R19.4] 04/25/2023 Traumatic coccydynia [M53.3] 05/29/2023 Status post fall [Z91.81] 05/29/2023 Encounter Status:Closed by DELMA JENKINS on 01/31/24 [facility] M7400.3302on 01-15-2024 M7400.3302 _ TESTING PERFORMED AT [facility]. ORIGINAL REPORT ON FILE IN LAB CONTAINS ADDITIONAL TEST SITE INFORMATION. Giardia Lamblia EIA NEGATIVE [facility] Comment on above: Performed By: #### L 7000.0750, M100.6796, M100.0605, M7400.3302, M600.5000, M100.637, L7000.0700 ####[facility] [address] [place], [place], [address] Ova and Parasites 2123zk OP OVA AND PARASITES EXAM, ROUTINE These results were obtained using wet preparation(s) and trichrome stained smear. This test does not include testing for Crytosporidium parvum, Cyclospora, or Microsporidia. One negative specimen does not rule out the possibility of a parasitic infection. TESTING PERFORMED AT [facility]. ORIGINAL REPORT ON FILE IN LAB CONTAINS ADDITIONAL TEST SITE INFORMATION. Ova/Parasite Exam NO OVA, CYSTS, OR PARASITES FOUND. [facility] Comment on above: Performed By: #### L 7000.0750, M100.6796, M100.0605, M7400.3302, M600.5000, M100.637, L7000.0700 ####[facility] [address] [place], [address] Cami 01-10-2024 ROBSON Telephone (INTMWS) GILMA GARCIA ([id number]) 1970 F Date Time Provider Department 01/10/24 JULITA COLLINS INTMWS During your visit today, we recorded the following information about you: Annabelle Nickerson LPN 01/10/2024 8:09 AM Signed Pt calling for a handicap placard for a life time. She received one earlier but it was not for life time. Pt reports [employer] told her about getting a life time one so you do not need to keep renewing. 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 SAMEER Costa Joy, APRN.GERHARD 01/10/2024 8:46 AM Signed The only ones we have available are considered lifetime but you have to still renew every 5 years. Thank you Eliana Curtis APRN.Selwyn Mendoza, KATHARINE 01/10/2024 1:18 PM Signed PATIENT NOTIFIED OF INFORMATION Allergies As of Date: 01/10/2024 Noted Allergy Reaction MOBIC (MELOXICAM) 10/24/2009 4 - Hives NAPROXEN 10/24/2009 8 - GI Upset PREDNISONE 11/07/2009 4 - Hives 12 - Shortness of Breath TYLENOL #3 (CODEINE) 10/24/2009 4 - Hives VICODIN (HYDROCODONE-ACETAMIN OPHE*09/27/2014 8 - GI Upset Comments: Nausea Date Reviewed: 10/22/2023 Reviewed by: Shaylee Turner LPN - Fully Assessed Reason for Visit: Life time handicap placard [Other] Prescriptions as of 01/10/2024 - losartan (COZAAR) 100 mg tablet Take 1 tablet by mouth once daily. DOSE CHANGE TAKE ONE DAILY - sertraline (ZOLOFT) 50 mg tablet Take 1 tablet by mouth once daily. - ergocalciferol 50,000 unit capsule (VITAMIN D2, DRISDOL) Take 1 capsule by mouth one time a week. - triamcinolone acetonide (KENALOG) 0.1 % cream Apply 1 application to affected area three times a day. Apply sparingly to area for rash/itching. - ibuprofen (MOTRIN) 800 mg tablet Take 1 tablet by mouth every 8 hours as needed for pain. Take with food. - acetaminophen (TYLENOL EXTRA STRENGTH) 500 mg tablet Take 2 tablets by mouth every 8 hours as needed for pain. - metoprolol succinate ER (TOPROL XL) 100 mg take 1 tablet by mouth every day - diclofenac (VOLTAREN ARTHRITIS PAIN) 1 % topical gel Apply 4 g to affected area four times daily. - polyethylene glycol 3350 (MIRALAX) 17 gram/dose powder For colonoscopy prep Problem List As Of Date 01/10/2024 Noted Resolved Hypertension, essential [I10] 10/24/2009 Chronic low back pain [M54.50, G89.29] 08/27/2014 Heavy menses [N92.0] 09/03/2014 10/20/2014 Abnormal uterine bleeding [N93.9] 09/03/2014 10/20/2014 Irregular bleeding [N92.6] 09/03/2014 10/20/2014 Mixed incontinence [N39.46] 05/11/2015 Contusion of lower back [S30.0XXA] 10/20/2021 Head injury [S09.90XA] 12/06/2021 Right shoulder pain [M25.511] 09/18/2022 Acute pain of left knee [M25.562] 12/19/2022 Acute hip pain, left [M25.552] 12/19/2022 Right wrist pain [M25.531] 01/31/2023 Altered bowel habits [R19.4] 04/25/2023 Traumatic coccydynia [M53.3] 05/29/2023 Status post fall [Z91.81] 05/29/2023 Encounter Status:Closed by SELWYN CORONA on 01/10/24 Normal [facility] Calprotectin, Stoolon [address] 14 ug/g Normal 0-120 [facility] Comment on above: Result Comment: Conc entration Interpretation Follow-Up < 5 - 50 ug/g Normal None >50 -120 ug/g Borderline Re-evaluate in 4-6 weeks >120 ug/g Abnormal Repeat as clinically indicated Performed at: - [facility] [id number] Cutter Operator Brick: Bety Koch MD, Phone: [phone] Performed By: #### L 7000.0750, M100.6796, M100.0605, M7400.3302, M600.5000, M100.637, L7000.0700 ####[facility] [address] [place], [address] L7000.0750on 01-10-2024 P ELASTASE,FECA > 800 Normal >200 [facility] Comment on above: Result Comment: Resu lt Units: ug Elast./g Severe Pancreatic Insufficiency: <100 Moderate Pancreatic Insufficiency: 100 - 200 Normal: >200 Performed at: - [facility] [id number] Cutter Operator Brick: Bety Koch MD, Phone: [phone] Performed By: #### L 7000.0750, M100.6796, M100.0605, M7400.3302, M600.5000, M100.637, L7000.0700 ####[facility] [address] [place], [address] SUSAN Comprehensive Panelon SUSAN TABLE Comment Normal . [facility] Comment on above: Result Comment: Auto antibody Disease Association -- Condition Frequency --------- Antinuclear Antibody, SLE, mixed connective Direct (SUSAN-D) tissue diseases --------- dsDNA SLE 40 - 60% --------- Chromatin Drug induced SLE 90% SLE 48 - 97% --------- SSA (Ro) SLE 25 - 35% Sjogren's Syndrome 40 - 70% Lupus 100% --------- SSB (La) SLE 10% Sjogren's Syndrome 30% --------- Sm (anti-Gonzalez) SLE 15 - 30% --------- SIGNAL SYSTEM TESTING MAINTAINER Mixed Connective Tissue Disease 95% (U1 nRNP, SLE 30 - 50% anti-ribonucleoprotein) Polymyositis and/or Dermatomyositis 20% --------- Scl-70 (antiDNA Scleroderma (diffuse) 20 - 35% topoisomerase) Crest 13% --------- Nicole-1 Polymyositis and/or Dermatomyositis 20 - 40% --------- Centromere B Scleroderma - Crest variant 80% Performed By: #### L 501.6710, L3100.5440, L501.94430, L2100.0000, L100.0100, L3410.2400, L101.9900, L504.2610, L3200.1100, L3100.3425, L506.0400, L5500.0550, L500.4050, L501.9520, L3300.1200 ####[facility] [address] [facility] [place], [address] ANTI-CENT B AB <0.2 Normal 0.0-0.9 [facility] Comment on above: Performed By: #### L 501.6710, L3100.5440, L501.09972, L2100.0000, L100.0100, L3410.2400, L101.9900, L504.2610, L3200.1100, L3100.3425, L506.0400, L5500.0550, L500.4050, L501.9520, L3300.1200 ####[facility] [address] [facility] [place], [address] ANTI-DNA (DS)AB <1 Normal 0-9 [facility] Comment on above: Result Comment: Nega tive <5 Equivocal 5 - 9 Positive >9 Performed By: #### L 501.6710, L3100.5440, L501.22892, L2100.0000, L100.0100, L3410.2400, L101.9900, L504.2610, L3200.1100, L3100.3425, L506.0400, L5500.0550, L500.4050, L501.9520, L3300.1200 ####[facility] [address] [place], [place], [phone] ANTI-NICOLE-1 <0.2 Normal 0.0-0.9 [facility] Comment on above: Performed By: #### L 501.6710, L3100.5440, L501.72776, L2100.0000, L100.0100, L3410.2400, L101.9900, L504.2610, L3200.1100, L3100.3425, L506.0400, L5500.0550, L500.4050, L501.9520, L3300.1200 ####[facility] [address] [facility]. [place], [place], [phone] ANTI-SS-A < 0.2 Normal 0.0-0.9 [facility] Comment on above: Performed By: #### L 501.6710, L3100.5440, L501.65531, L2100.0000, L100.0100, L3410.2400, L101.9900, L504.2610, L3200.1100, L3100.3425, L506.0400, L5500.0550, L500.4050, L501.9520, L3300.1200 ####[facility] [address] [place], [address] ANTI-SS-B < 0.2 Normal 0.0-0.9 [facility] Comment on above: Performed By: #### L 501.6710, L3100.5440, L501.62511, L2100.0000, L100.0100, L3410.2400, L101.9900, L504.2610, L3200.1100, L3100.3425, L506.0400, L5500.0550, L500.4050, L501.9520, L3300.1200 ####[facility] [address] [place], [address] ANTICHROMATIN <0.2 Normal 0.0-0.9 [facility] Comment on above: Performed By: #### L 501.6710, L3100.5440, L501.76471, L2100.0000, L100.0100, L3410.2400, L101.9900, L504.2610, L3200.1100, L3100.3425, L506.0400, L5500.0550, L500.4050, L501.9520, L3300.1200 ####[facility] [address] [place], [place], [id number] ANTISCLERODERM <0.2 Normal 0.0-0.9 [facility] Comment on above: Performed By: #### L 501.6710, L3100.5440, L501.46609, L2100.0000, L100.0100, L3410.2400, L101.9900, L504.2610, L3200.1100, L3100.3425, L506.0400, L5500.0550, L500.4050, L501.9520, L3300.1200 ####[facility] [address] [place], [address] SIGNAL SYSTEM TESTING MAINTAINER Ab <0.2 Normal 0.0-0.9 [facility] Comment on above: Performed By: #### L 501.6710, L3100.5440, L501.14764, L2100.0000, L100.0100, L3410.2400, L101.9900, L504.2610, L3200.1100, L3100.3425, L506.0400, L5500.0550, L500.4050, L501.9520, L3300.1200 ####[facility] [address] [place], [place], [address] GONZALEZ Ab <0.2 Normal 0.0-0.9 [facility] Comment on above: Performed By: #### L 501.6710, L3100.5440, L501.33125, L2100.0000, L100.0100, L3410.2400, L101.9900, L504.2610, L3200.1100, L3100.3425, L506.0400, L5500.0550, L500.4050, L501.9520, L3300.1200 ####[facility] [address] [place], [place], [phone] ANCAon 01-09-2024 Atypical pANCA <1:20 Normal Neg:<1:20 [facility] Comment on above: Order Comment: NUNK Result Comment: The atypical pANCA pattern has been observed in a significant percentage of patients with ulcerative colitis, primary sclerosing cholangitis and autoimmune hepatitis. Performed at: [facility] [address] [id number] Cutter Operator Brick: Mil Waggoner PhD, Phone: [phone] Performed at: [facility] [address] [id number] Cutter Operator Brick: Bety Koch MD, Phone: [phone] Performed By: #### L 501.6710, L3100.5440, L501.81797, L2100.0000, L100.0100, L3410.2400, L101.9900, L504.2610, L3200.1100, L3100.3425, L506.0400, L5500.0550, L500.4050, L501.9520, L3300.1200 ####[facility] [address] [place], [place], [phone] Cytoplasmic Ab <1:20 Normal Neg:<1:20 [facility] Comment on above: Order Comment: NUNK Performed By: #### L 501.6710, L3100.5440, L501.11776, L2100.0000, L100.0100, L3410.2400, L101.9900, L504.2610, L3200.1100, L3100.3425, L506.0400, L5500.0550, L500.4050, L501.9520, L3300.1200 ####[facility] [address] [place], [place], [phone] Perinuclear Ab. <1:20 Normal Neg:<1:20 [facility] Comment on above: Order Comment: NUNK Result Comment: The presence of positive fluorescence exhibiting P-ANCA or C-ANCA patterns alone is not specific for the diagnosis of Friad's Granulomatosis (WG) or microscopic polyangiitis. Decisions about treatment should not be based solely on ANCA IFA results. The International ANCA Group Consensus recommends follow up testing of positive sera with both AK- 3 and MPO-ANCA enzyme immunoassays. As many as 5% serum samples are positive only by EIA. Ref. AM J Clin Pathol 1999;111:507-513. Performed By: #### L 501.6710, L3100.5440, L501.21383, L2100.0000, L100.0100, L3410.2400, L101.9900, L504.2610, L3200.1100, L3100.3425, L506.0400, L5500.0550, L500.4050, L501.9520, L3300.1200 ####[facility] [address] [facility] [place], [address] Celiac Disease Profileon ENDOMYSIAL IGA Negative Normal Negative [facility] Comment on above: Order Comment: NUNK Performed By: #### L 501.6710, L3100.5440, L501.25195, L2100.0000, L100.0100, L3410.2400, L101.9900, L504.2610, L3200.1100, L3100.3425, L506.0400, L5500.0550, L500.4050, L501.9520, L3300.1200 ####[facility] [address] [facility] [place], [address] tTG IGA <2 Normal 0-3 [facility] Comment on above: Order Comment: NUNK Result Comment: Nega tive 0 - 3 Weak Positive 4 - 10 Positive >10 Tissue Transglutaminase (tTG) has been identified as the endomysial antigen. Studies have demonstr- ated that endomysial IgA antibodies have over 99% specificity for gluten sensitive enteropathy. Performed By: #### L 501.6710, L3100.5440, L501.56826, L2100.0000, L100.0100, L3410.2400, L101.9900, L504.2610, L3200.1100, L3100.3425, L506.0400, L5500.0550, L500.4050, L501.9520, L3300.1200 ####[facility] [address] [place], [address] ADAM + Protein Elect, Serumon 01-09-2024 Albumin [Mass/Vol] 3.9 g/dL Normal 2.9-4.4 [facility] Comment on above: Order Comment: NUNK Performed By: #### L 501.6710, L3100.5440, L501.58403, L2100.0000, L100.0100, L3410.2400, L101.9900, L504.2610, L3200.1100, L3100.3425, L506.0400, L5500.0550, L500.4050, L501.9520, L3300.1200 ####[facility] [address] [place], [place], [phone] Albumin/Globulin [Mass ratio] 1.2 {ratio} Normal 0.7-1.7 [facility] Comment on above: Order Comment: NUNK Performed By: #### L 501.6710, L3100.5440, L501.93283, L2100.0000, L100.0100, L3410.2400, L101.9900, L504.2610, L3200.1100, L3100.3425, L506.0400, L5500.0550, L500.4050, L501.9520, L3300.1200 ####[facility] [address] [place], [address]) IEIYI-5-HBRU 0.3 g/dL Normal 0.0-0.4 [facility] Comment on above: Order Comment: NUNK Performed By: #### L 501.6710, L3100.5440, L501.11196, L2100.0000, L100.0100, L3410.2400, L101.9900, L504.2610, L3200.1100, L3100.3425, L506.0400, L5500.0550, L500.4050, L501.9520, L3300.1200 ####[facility] [address] [facility] [address] [place], [place], [phone]) UBPMU-5-UFVL 0.7 g/dL Normal 0.4-1.0 [facility] Comment on above: Order Comment: NUNK Performed By: #### L 501.6710, L3100.5440, L501.34081, L2100.0000, L100.0100, L3410.2400, L101.9900, L504.2610, L3200.1100, L3100.3425, L506.0400, L5500.0550, L500.4050, L501.9520, L3300.1200 ####[facility] [address] [facility] [address] [place], [place], [phone]) BETA GLOBULIN 1.2 g/dL Normal 0.7-1.3 [facility] Comment on above: Order Comment: NUNK Performed By: #### L 501.6710, L3100.5440, L501.01461, L2100.0000, L100.0100, L3410.2400, L101.9900, L504.2610, L3200.1100, L3100.3425, L506.0400, L5500.0550, L500.4050, L501.9520, L3300.1200 ####[facility] [address] [place], [place], [phone] GAMMA GLOBULIN 1.2 g/dL Normal 0.4-1.8 [facility] Comment on above: Order Comment: NUNK Performed By: #### L 501.6710, L3100.5440, L501.05467, L2100.0000, L100.0100, L3410.2400, L101.9900, L504.2610, L3200.1100, L3100.3425, L506.0400, L5500.0550, L500.4050, L501.9520, L3300.1200 ####[facility] [address] [place], [place], [phone] Globulin (S) [Mass/Vol] 3.4 g/dL Normal 2.2-3.9 [facility] Comment on above: Order Comment: NUNK Performed By: #### L 501.6710, L3100.5440, L501.88874, L2100.0000, L100.0100, L3410.2400, L101.9900, L504.2610, L3200.1100, L3100.3425, L506.0400, L5500.0550, L500.4050, L501.9520, L3300.1200 ####[facility] [address] [place], [place], [phone] ADAM RESULT,S Comment Normal . [facility] Comment on above: Order Comment: NUNK Result Comment: No m onoclonality detected. Performed By: #### L 501.6710, L3100.5440, L501.73557, L2100.0000, L100.0100, L3410.2400, L101.9900, L504.2610, L3200.1100, L3100.3425, L506.0400, L5500.0550, L500.4050, L501.9520, L3300.1200 ####[facility] [address] [place], [address] IMMUNOGLOB A QN 419 mg/dL High 87-352 [facility] Comment on above: Order Comment: NUNK Performed By: #### L 501.6710, L3100.5440, L501.30850, L2100.0000, L100.0100, L3410.2400, L101.9900, L504.2610, L3200.1100, L3100.3425, L506.0400, L5500.0550, L500.4050, L501.9520, L3300.1200 ####[facility] [address] [place], [address] IMMUNOGLOB G QN 1313 mg/dL Normal 586-1602 [facility] Comment on above: Order Comment: NUNK Performed By: #### L 501.6710, L3100.5440, L501.71224, L2100.0000, L100.0100, L3410.2400, L101.9900, L504.2610, L3200.1100, L3100.3425, L506.0400, L5500.0550, L500.4050, L501.9520, L3300.1200 ####[facility] [address] [place], [address] IMMUNOGLOB M QN 111 mg/dL Normal 26-217 [facility] Comment on above: Order Comment: NUNK Performed By: #### L 501.6710, L3100.5440, L501.76032, L2100.0000, L100.0100, L3410.2400, L101.9900, L504.2610, L3200.1100, L3100.3425, L506.0400, L5500.0550, L500.4050, L501.9520, L3300.1200 ####[facility] [address] [place], [address] M-Joshua Not Observed Normal Not Observed [facility] Comment on above: Order Comment: NUNK Performed By: #### L 501.6710, L3100.5440, L501.10531, L2100.0000, L100.0100, L3410.2400, L101.9900, L504.2610, L3200.1100, L3100.3425, L506.0400, L5500.0550, L500.4050, L501.9520, L3300.1200 ####[facility] [address] [place], [address] NOTE: Comment Normal . [facility] Comment on above: Order Comment: NUNK Result Comment: Prot ein electrophoresis scan will follow via computer, mail, or business transformation manager delivery. Performed By: #### L 501.6710, L3100.5440, L501.03880, L2100.0000, L100.0100, L3410.2400, L101.9900, L504.2610, L3200.1100, L3100.3425, L506.0400, L5500.0550, L500.4050, L501.9520, L3300.1200 ####[facility] [address] [place], [address] Protein [Mass/Vol] 7.3 g/dL Normal 6.0-8.5 [facility] Comment on above: Order Comment: NUNK Performed By: #### L 501.6710, L3100.5440, L501.03344, L2100.0000, L100.0100, L3410.2400, L101.9900, L504.2610, L3200.1100, L3100.3425, L506.0400, L5500.0550, L500.4050, L501.9520, L3300.1200 ####[facility] [address] [place], [address] Immunoglobulins G/A/M/Bobby IMMUNOGLOB E QN 4 IU/mL Low 6-495 [facility] Comment on above: Order Comment: NUNK Performed By: #### L 501.6710, L3100.5440, L501.04180, L2100.0000, L100.0100, L3410.2400, L101.9900, L504.2610, L3200.1100, L3100.3425, L506.0400, L5500.0550, L500.4050, L501.9520, L3300.1200 ####[facility] [address] [place], [place], [id number] L2100.0000on 01-09-2024 ACCA 32 units Normal 0-90 [facility] Comment on above: Order Comment: NUNK Result Comment: Nega tive: <80 Equivocal: 80-90 Positive: >90 Performed By: #### L 501.6710, L3100.5440, L501.29375, L2100.0000, L100.0100, L3410.2400, L101.9900, L504.2610, L3200.1100, L3100.3425, L506.0400, L5500.0550, L500.4050, L501.9520, L3300.1200 ####[facility] [address] [place], [address] ALCA 6 units Normal 0-60 [facility] Comment on above: Order Comment: NUNK Result Comment: Nega tive:<55 Equivocal: 55-60 Positive: >60 Performed By: #### L 501.6710, L3100.5440, L501.26076, L2100.0000, L100.0100, L3410.2400, L101.9900, L504.2610, L3200.1100, L3100.3425, L506.0400, L5500.0550, L500.4050, L501.9520, L3300.1200 ####[facility] [address] [place], [address] AMCA 8 units Normal 0-100 [facility] Comment on above: Order Comment: NUNK Result Comment: Nega tive: <90 Equivocal: 90-100 Positive: >100 This test was developed and its performance characteristics determined by [facility]. It has not been cleared or approved by the Food and Drug Administration. The FDA has determined that such clearance or approval is not necessary. Performed By: #### L 501.6710, L3100.5440, L501.41173, L2100.0000, L100.0100, L3410.2400, L101.9900, L504.2610, L3200.1100, L3100.3425, L506.0400, L5500.0550, L500.4050, L501.9520, L3300.1200 ####[facility] [address] [place], [place], [id number] Atypical pANCA Negative Normal Negative [facility] Comment on above: Order Comment: NUNK Performed By: #### L 501.6710, L3100.5440, L501.18054, L2100.0000, L100.0100, L3410.2400, L101.9900, L504.2610, L3200.1100, L3100.3425, L506.0400, L5500.0550, L500.4050, L501.9520, L3300.1200 ####[facility] [address] [place], [address] COMMENT Comment Normal . [facility] Comment on above: Order Comment: NUNK Result Comment: Chantell armando is not suggestive of Inflammatory Bowel Disease Performed By: #### L 501.6710, L3100.5440, L501.99711, L2100.0000, L100.0100, L3410.2400, L101.9900, L504.2610, L3200.1100, L3100.3425, L506.0400, L5500.0550, L500.4050, L501.9520, L3300.1200 ####[facility] [address] [place], [place], [phone] Travon 23 units Normal 0-50 [facility] Comment on above: Order Comment: NUNK Result Comment: Nega tive: <45 Equivocal: 45-50 Positive: >50 Performed By: #### L 501.6710, L3100.5440, L501.78104, L2100.0000, L100.0100, L3410.2400, L101.9900, L504.2610, L3200.1100, L3100.3425, L506.0400, L5500.0550, L500.4050, L501.9520, L3300.1200 ####[facility] [address] [place], [place], [phone]) L5500.0550on 01-09-2024 BEEF <0.10 Normal Class 0 [facility] Comment on above: Performed By: #### L 501.6710, L3100.5440, L501.50191, L2100.0000, L100.0100, L3410.2400, L101.9900, L504.2610, L3200.1100, L3100.3425, L506.0400, L5500.0550, L500.4050, L501.9520, L3300.1200 ####[facility] [address] [place], [address] CHOCOLATE <0.10 Normal Class 0 [facility] Comment on above: Performed By: #### L 501.6710, L3100.5440, L501.89614, L2100.0000, L100.0100, L3410.2400, L101.9900, L504.2610, L3200.1100, L3100.3425, L506.0400, L5500.0550, L500.4050, L501.9520, L3300.1200 ####[facility] [address] [place], [place], [id number] CODFISH <0.10 Normal Class 0 [facility] Comment on above: Performed By: #### L 501.6710, L3100.5440, L501.37564, L2100.0000, L100.0100, L3410.2400, L101.9900, L504.2610, L3200.1100, L3100.3425, L506.0400, L5500.0550, L500.4050, L501.9520, L3300.1200 ####[facility] [address] [place], [place], [phone] COMMENT Comment Normal . [facility] Comment on above: Result Comment: Analy epps of Specific IgE Class Description of Class ----- < 0.10 0 Negative 0.10 - 0.31 0/I Equivocal/Low 0.32 - 0.55 I Low 0.56 - 1.40 II Moderate 1.41 - 3.90 III High 3.91 - 19.00 IV Very High 19.01 - 100.00 V Very High >100.00 Very High Performed By: #### L 501.6710, L3100.5440, L501.63710, L2100.0000, L100.0100, L3410.2400, L101.9900, L504.2610, L3200.1100, L3100.3425, L506.0400, L5500.0550, L500.4050, L501.9520, L3300.1200 ####[facility] [address] [place], [address] CORN <0.10 Normal Class 0 [facility] Comment on above: Performed By: #### L 501.6710, L3100.5440, L501.25373, L2100.0000, L100.0100, L3410.2400, L101.9900, L504.2610, L3200.1100, L3100.3425, L506.0400, L5500.0550, L500.4050, L501.9520, L3300.1200 ####[facility] [address] [place], [address] EGG, WHOLE <0.10 Normal Class 0 [facility] Comment on above: Result Comment: Perf ormed at: - [facility] [id number] Cutter Operator Brick: Mil Waggoner PhD, Phone: [phone] Performed at: - [facility] [id number] Cutter Operator Brick: Bety Koch MD, Phone: [phone] Performed By: #### L 501.6710, L3100.5440, L501.46186, L2100.0000, L100.0100, L3410.2400, L101.9900, L504.2610, L3200.1100, L3100.3425, L506.0400, L5500.0550, L500.4050, L501.9520, L3300.1200 ####[facility] [address] [place], [address] MILK (COW) <0.10 Normal Class 0 [facility] Comment on above: Performed By: #### L 501.6710, L3100.5440, L501.10677, L2100.0000, L100.0100, L3410.2400, L101.9900, L504.2610, L3200.1100, L3100.3425, L506.0400, L5500.0550, L500.4050, L501.9520, L3300.1200 ####[facility] [address] [place], [address] MUSSELS <0.10 Normal Class 0 [facility] Comment on above: Performed By: #### L 501.6710, L3100.5440, L501.82385, L2100.0000, L100.0100, L3410.2400, L101.9900, L504.2610, L3200.1100, L3100.3425, L506.0400, L5500.0550, L500.4050, L501.9520, L3300.1200 ####[facility] [address] [place], [place], [phone] PEANUT <0.10 Normal Class 0 [facility] Comment on above: Performed By: #### L 501.6710, L3100.5440, L501.56587, L2100.0000, L100.0100, L3410.2400, L101.9900, L504.2610, L3200.1100, L3100.3425, L506.0400, L5500.0550, L500.4050, L501.9520, L3300.1200 ####[facility] [address] [place], [place], [phone] PORK <0.10 Normal Class 0 [facility] Comment on above: Performed By: #### L 501.6710, L3100.5440, L501.87881, L2100.0000, L100.0100, L3410.2400, L101.9900, L504.2610, L3200.1100, L3100.3425, L506.0400, L5500.0550, L500.4050, L501.9520, L3300.1200 ####[facility] [address] [place], [address] SALMON <0.10 Normal Class 0 [facility] Comment on above: Performed By: #### L 501.6710, L3100.5440, L501.81217, L2100.0000, L100.0100, L3410.2400, L101.9900, L504.2610, L3200.1100, L3100.3425, L506.0400, L5500.0550, L500.4050, L501.9520, L3300.1200 ####[facility] [address] [place], [address] SHRIMP <0.10 Normal Class 0 [facility] Comment on above: Performed By: #### L 501.6710, L3100.5440, L501.88796, L2100.0000, L100.0100, L3410.2400, L101.9900, L504.2610, L3200.1100, L3100.3425, L506.0400, L5500.0550, L500.4050, L501.9520, L3300.1200 ####[facility] [address] [place], [place], [phone] SOYBEAN <0.10 Normal Class 0 [facility] Comment on above: Performed By: #### L 501.6710, L3100.5440, L501.90960, L2100.0000, L100.0100, L3410.2400, L101.9900, L504.2610, L3200.1100, L3100.3425, L506.0400, L5500.0550, L500.4050, L501.9520, L3300.1200 ####[facility] [address] [place], [address] TUNA <0.10 Normal Class 0 [facility] Comment on above: Performed By: #### L 501.6710, L3100.5440, L501.17258, L2100.0000, L100.0100, L3410.2400, L101.9900, L504.2610, L3200.1100, L3100.3425, L506.0400, L5500.0550, L500.4050, L501.9520, L3300.1200 ####[facility] [address] [place], [place], [id number] WHEAT <0.10 Normal Class 0 [facility] Comment on above: Performed By: #### L 501.6710, L3100.5440, L501.47891, L2100.0000, L100.0100, L3410.2400, L101.9900, L504.2610, L3200.1100, L3100.3425, L506.0400, L5500.0550, L500.4050, L501.9520, L3300.1200 ####[facility] [address] [place], [place], [phone] CDIFF (PCR)on 01-07-2024 CDIFF Pending [phone] NAP1-B1 Presumptive Negative *for epidemiolologic???use C. Diff PCR Negative- No toxigenic C. Diff Detected Normal [facility] Comment on above: Performed By: #### L 7000.0750, M100.6796, M100.0605, M7400.3302, M600.5000, M100.637, L7000.0700 ####[facility] [address] [place], [place], [phone] ENTERIC PATHOGEN PANEL STOOL on 01-07-2024 EP PANEL Not detected for Campylobacter group, Salmonella species, Shigella species, Vibrio Group, Yersinia enterocolitica, EHEC (Shiga Toxin 1, Shiga Toxin 2), Norovirus Gl/Gll, and Rotavirus A. Other common stool pathogens are not detected on this panel include: Aeromonas/Plesiomonas or parasites. Order testing for these organisms separately if suspected. This is an amplified DNA test which makes it both specific and sensitive. Normal Reference Range = Not Detected GI pathogens Pnl Stl LUIS ALFREDO+probe Nucleic acid amplification test method CAMPYLOBACTER Not Detected Norovirus Not Detected Rotavirus Not Detected Salmonella Not Detected Shiga Toxin Not Detected Shigella sp. Not Detected VIBRIO Not Detected Yersinia Not Detected Normal [facility] Comment on above: Performed By: #### L 7000.0750, M100.6796, M100.0605, M7400.3302, M600.5000, M100.637, L7000.0700 ####[facility] [address] [place], [place], [phone] Stool Lactoferrin/WBCon 10-0 WBCST Normal Reference Range = Negative Fecal WBC Lactoferrin Negative: No Fecal WBC Lactoferrin present Normal [facility] Comment on above: Performed By: #### L 7000.0750, M100.6796, M100.0605, M7400.3302, M600.5000, M100.637, L7000.0700 ####[facility] [address] [facility] [place], [address] CBC W/Diff, Automatedon 09-3 0-2024 Absolute Lymph 1.40 X10 3/uL Normal 0.83-4.51 [facility] Comment on above: Performed By: #### L 7000.0700, .96 #### [facility] [address] [place], [address] Absolute Neut 4.6 X10 3/uL Normal 2.0-7.7 [facility] Comment on above: Performed By: #### L 7000.0700, #### [facility] [address] [place], [address] Basophils/100 WBC (Bld) 1.0 % Normal 0-1 [facility] Comment on above: Performed By: #### L 0.0700, #### [facility] [address] [place], [address] Eosinophils/100 WBC (Bld) 1.8 % Normal 0-5 [facility] Comment on above: Performed By: #### L 7000.0700, .96 #### [facility] [address] [place], [address] Erythrocyte distribution width (RBC) [Ratio] 15.0 % High 11.6-14.6 [facility] Comment on above: Performed By: #### L 7000.0700, .96 #### [facility] [address] [place], [address] Hematocrit (Bld) [Volume fraction] 46.7 % Normal 37-47 [facility] Comment on above: Performed By: #### L 7000.0700, .96 #### [facility] [address] [place], [address] Hemoglobin (Bld) [Mass/Vol] 14.7 g/dL Normal 12.0-15. 0 [facility] Comment on above: Performed By: #### L 0.699, #### [facility] [address] [place], [address] IG% 0.100 Normal 0.0-0.9 [facility] Comment on above: Result Comment: IG% - Immature Granulocytes (promyelocytes, myelocytes and metamyelocytes) > 1% indicates that a LEFT SHIFT is Present. Performed By: #### L 0.699, #### [facility] [address] [place], [address] Lymphocytes/100 WBC (Bld) 20.9 % Normal 19-41 [facility] Comment on above: Performed By: #### L 6999.699, #### [facility] [address] [place], [address] MCH (RBC) [Entitic mass] 26.4 pg Low 27.0-32.0 [facility] Comment on above: Performed By: #### L 6999.699, #### [facility] [address] [place], [address] MCHC (RBC) [Mass/Vol] 31.5 g/dL Low 32-36 [facility] Comment on above: Performed By: #### L 6999.699, #### [facility] [address] [place], [address] MCV (RBC) [Entitic vol] 84.0 fL Normal 81-99 [facility] Comment on above: Performed By: #### L 6999.699, #### [facility] [address] [place], [address] Monocytes/100 WBC (Bld) 8.2 % Normal 0-10 [facility] Comment on above: Performed By: #### L 6999.699, #### [facility] [address] [place], [address] Neutrophils/100 WBC (Bld) 68.0 % Normal 47-70 [facility] Comment on above: Performed By: #### L 7000.0700, 96 #### [facility] [address] [place], [address] Nucleated RBC (Bld) [#/Vol] 0 10*3/uL Normal 0-5 [facility] Comment on above: Performed By: #### L 7000.0700, #### [facility] [address] [place], [address] Platelet mean volume (Bld) [Entitic vol] 9.6 fL Normal 6.2-12.0 [facility] Comment on above: Performed By: #### L 7000.0700, #### [facility] [address] [place], [address] Platelets (Bld) [#/Vol] 388 10*3/uL Normal 150-450 [facility] Comment on above: Performed By: #### L 7000.0700, #### [facility] [address] [place], [address] RBC (Bld) [#/Vol] 5.56 10*6/uL High 4.2-5.4 [facility] Comment on above: Performed By: #### L 7000.0700, 96 #### [facility] [address] [place], [address] RDW SD 45.9 fl High 35.1-43.9 [facility] Comment on above: Performed By: #### L 7000.0700, #### [facility] [address] [place], [address] WBC (Bld) [#/Vol] 6.7 10*3/uL Normal 4.4-11.0 [facility] Comment on above: Performed By: #### L 7000.0700, 96 #### [facility] [address] [place], [address] CRPon 01-06-2024 C-REACTIVE PROT 11.00 mg/L High 0.0-3.0 [facility] Comment on above: Order Comment: [email or web address] Result Comment: C-Re active Protein (CRP) provides useful information for the diagnosis, therapy and monitoring of inflammatory processes and associated diseases. For the evaluation of Relative Risk for Cardiovascular Disease, a High Sensitivity CRP (HSCRP) should be ordered. Performed By: #### L 0.0700, #### [facility] [address] [place], [address] Comprehensive Metabolic Prof ilon 01-06-2024 Albumin [Mass/Vol] 3.6 g/dL Normal 3.2-5.0 [facility] Comment on above: Order Comment: [email or web address] Performed By: #### L 0.0700, 96 #### [facility] [address] [place], [address] Albumin/Globulin [Mass ratio] 0.8 {ratio} Low 0.9-2.4 [facility] Comment on above: Order Comment: [email or web address] Performed By: #### L 7000.0700, 96 #### [facility] [address] [place], [address] ALK P 130 U/L High 45-117 [facility] Comment on above: Order Comment: [email or web address] Performed By: #### L 7000.0700, #### [facility] [address] [place], [address] ALT [Catalytic activity/Vol] 19 U/L Normal 13-56 [facility] Comment on above: Order Comment: [email or web address] Performed By: #### L 0.699, #### [facility] [address] [place], [address] AST [Catalytic activity/Vol] 12 U/L Low 15-37 [facility] Comment on above: Order Comment: [email or web address] Performed By: #### L 6999.699, #### [facility] [address] [place], [address] Bilirubin [Mass/Vol] 0.40 mg/dL Normal 0.20-1.00 [facility] Comment on above: Order Comment: UNK1 Result Comment: For patients on eltrombopag therapy, use of Dimension [place] TBIL is not recommended. Performed By: #### L 6999.699, #### [facility] [address] [place], [address] BUN/CRE 15.2 RATIO Normal 10-20 [facility] Comment on above: Order Comment: UNK1 Performed By: #### L 6999.699, #### [facility] [address] [place], [address] CA,Total 9.3 mg/dL Normal 8.5-10.1 [facility] Comment on above: Order Comment: UNK1 Performed By: #### L 0.699, 96 #### [facility] [address] [place], [address] Chloride [Moles/Vol] 106 mmol/L Normal 98-107 [facility] Comment on above: Order Comment: UNK1 Performed By: #### L 0.0700, #### [facility] [address] [place], [address] CO2 [Moles/Vol] 25.0 mmol/L Normal 21.0-32.0 [facility] Comment on above: Order Comment: UNK1 Performed By: #### L 0.00, #### [facility] [address] [place], [address] Creatinine [Mass/Vol] 0.85 mg/dL Normal 0.55-1.02 [facility] Comment on above: Order Comment: UNK1 Result Comment: The validity of the calculated GFR GFRAA in patients over 70 years has not been determined. Clinical correlation is essential. Performed By: #### L 0.00, #### [facility] [address] [place], [address] EST GFR - AA 89 mL/min Normal >60 [facility] Comment on above: Order Comment: UNK1 Result Comment: Afri can Irish GFR Calc Performed By: #### L 6999.699, #### [facility] [address] [place], [address] GAP 8 Normal 5-15 [facility] Comment on above: Order Comment: UNK1 Performed By: #### L 0.07, #### [facility] [address] [place], [address] GFR/1.73 sq M.predicted among non-blacks MDRD (S/P/Bld) [Vol rate/Area] 74 mL/min/{1.73_m2} Normal >60 [facility] [place] Comment on above: Order Comment: UNK1 Result Comment: Non- GFR Calc Performed By: #### L 0.0700, #### [facility] [address] [place], [address] Globulin (S) [Mass/Vol] 4.3 g/dL High 2.2-4.2 [facility] Comment on above: Order Comment: UNK1 Performed By: #### L 0.0700, #### [facility] [address] [place], [address] Glucose [Mass/Vol] 124 mg/dL High 74-106 [facility] Comment on above: Order Comment: UNK1 Result Comment: Fast ing Glucose result from 100 to 125 mg/dL suggests IMPAIRED HOMEOSTASIS per A.D.A. criteria. Performed By: #### L 0.699, #### [facility] [address] [place], [address] Potassium [Moles/Vol] 3.7 mmol/L Normal 3.5-5.1 [facility] Comment on above: Order Comment: UNK1 Performed By: #### L 6999.699, #### [facility] [address] [place], [address] Sodium [Moles/Vol] 139 mmol/L Normal 136-145 [facility] Comment on above: Order Comment: UNK1 Performed By: #### L 0.699, #### [facility] [address] [place], [address] T PROT 7.9 g/dL Normal 6.4-8.2 [facility] Comment on above: Order Comment: UNK1 Performed By: #### L 6999.699, #### [facility] [address] [place], [address] Urea nitrogen [Mass/Vol] 13 mg/dL Normal 7-18 [facility] Comment on above: Order Comment: UNK1 Performed By: #### L 0.699, #### [facility] [address] [place], [address] Erythrocyte Sed Rateon 01-05 -2023 SED RATE 25 mm/hr Normal 0-30 [facility] Comment on above: Performed By: #### L 0.0700, M100.6796 #### [facility] [address] [place], [address] Free T3on 01-06-2024 Free T3 [Mass/Vol] 2.7 pg/mL Normal 2.18-3.98 [facility] Comment on above: Order Comment: UNK1 Performed By: #### L 7000.0700, M100.6796 #### [facility] [address] [place], [address] Gastroenterology Visit Repor ton 01-06-2024 Gastroenterology Visit Report [facility] [address] [place] [address] OFFICE VISIT Date of Service: 01/06/24 MR#: [id number] Acct: [id number] Name: GILMA GARCIA Rep #: [id number] : 1970 Provider: AIDAN Stone Age/Sex: 53/F [place] [facility] [place] Status: Signed Intake Vital Signs 07/18/23 21:40 Height 5 ft 3 in Intake Visit Reasons: Crohn's Chief Complaint: abdominal pain, diarrhea, crohns Allergies meloxicam (From Mobic) Allergy (Verified 07/18/23 21:40) Hives naproxen (From Naprosyn) Allergy (Verified 07/18/23 21:40) Hives codeine Adverse Reaction (Verified 07/18/23 21:40) Vomiting hydrocodone bitartrate (From Vicodin) Adverse Reaction (Verified 07/18/23 21:40) Nausea morphine Adverse Reaction (Verified 07/18/23 21:40) Chest tightness Medications ???Medication ???Instructions ???Recorded ???Confirmed ???Type metoprolol succinate 100 mg 100 mg PO DAILY 08/13/22 01/06/24 History capsule sprinkle, ext. release 24 hr cholecalciferol (vitamin D3) 1,250 1,250 mcg PO QWEEK 01/06/24 01/06/24 History mcg (50,000 unit) capsule dicyclomine 10 mg capsule 10 mg PO BID PRN abdominal pain 01/06/24 01/06/24 Rx #30 caps losartan 100 mg tablet 100 mg PO QDAY 01/06/24 01/06/24 History sertraline 50 mg tablet (Zoloft) 50 mg PO QDAY 01/06/24 01/06/24 History PFSH Medical History Hypertension Surgical History History of cholecystectomy History of hysterectomy History of tonsillectomy Social History Smoking Status: Former smoker HPI HPI Chief Complaint: abdominal pain, diarrhea, crohns Details: GILMA GARCIA, is a 53 F who presents to the office today for establishment with [facility]. Pt has a PMHx of HTN, s/p cholecystectomy, and atypical chest pain. She is here today for evaluation of diarrhea, constipation and abdominal pain that has been going on for a year now. She tells me she has been unable to work recently due to pain and incontinence of her stools. She has mostly diarrhea but will have constipation sometimes too. Her pain is in the lower abdomen on both the left and right sides. When she is constipated she will have nausea and some bright red blood streaking of her stool. She had a CT scan in March 2023 showing possible IBD. She underwent colonoscopy in Apr 2023 but no biopsies were taken. She denies heartburn, vomiting, melena, weight loss, rash, joint pain or fevers. CT Abdomen/pelvis 03.30.23; Abnormal circumferential thickening and edema of the terminal ilium, cecum and ascending colon with surrounding mesenteric stranding and mild ascites, consistent with inflammatory bowel disease/Crohn''s disease. No fistula, abscess or free air identified ROS Const Constitutional: No fatigue, fever(s) or weight change ENT ENT: No difficulty swallowing Gastro GI: Positive for abdominal pain, bloating, change in bowel habits, constipation, diarrhea, excessive flatus and nausea/dyspepsia; No belching, change in stool character, coffee ground emesis, cramping, heartburn, difficulty swallowing, feeling full early, incontinent of stools, Vomiting blood/hematemesis, Blood in stool, loose stools, Black,tarry stools, pain with swallowing, vomiting or other Musc Musculoskeletal: Positive for back pain; No joint pain Skin Skin: No yellowing of the eye or itchy eyes Psych Psychiatric: Positive for anxiety, No depression and Positive for hyperactivity Endo Endocrine: No fatigue or weight change Aller/Imm Allergy/Immunologic: No itchy eyes Toi/Lymp Hematologic/Lymphatic : No easy bleeding or easy bruising Exam Const General: cooperative and comfortable Nutritional Appearance: average body habitus and well nourished HENMT Head: normal to inspection Ears: hearing grossly normal bilaterally Nose: external nose normal Face and sinus: normal facial exam Eyes General: appearance normal, both eyes and all related structures Neck Neck: normal visual inspection Chest Chest palpation inspection: normal inspection of the chest Resp Effort Inspection: normal respiratory effort GI Inspection: normal to inspection Palpation: no hepatosplenomegaly Skin General: no rashes or lesions noted Neuro General: patient alert Extrem General: normal to inspection Psych Affect: normal affect Assessment and Plan Assessment and Plan (1) Diarrhea: Status: Acute Plan: Pt is a 53 yo female with PMHx of HTN, s/p cholecystectomy and atypical chest pain here today for establishment. She has had persistent GI symptoms of abdominal pain, diarrhea and constipation for the past year. CT scan from March 2023 concernin (more content not included)... Normal [facility] LDHon 01-06-2024 LDH 166 U/L Normal 84-246 [facility] Comment on above: Order Comment: UNK1 Performed By: #### L 0.0700, 96 #### [facility] [address], [place], [id number] T4 Free Directon 01-06-2024 T4 FREE DIRECT 1.04 ng/dL Normal 0.76-1.46 [facility] Comment on above: Order Comment: UNK1 Performed By: #### L 7000.0700, M196 #### [facility] [address], [place], [id number] Thyroid Stim Hormone (TSH)on 01-06-2024 TSH 2.050 uIU/mL Normal 0.358-3.74 0 [facility] Comment on above: Order Comment: UNK1 Performed By: #### L 7000.0700, M196 #### [facility] [place], [address] CNOVon 10-22-2023 CNOV Office Visit (INTMWS ) GILMA GARCIA ([id number]) 1970 F Date Time Provider Department 10/22/23 8:00 AM ROBERTA PRITCHARD INTMWS During your visit today, we recorded the following information about you: Pulse Respiration Blood pressure Weight 63/minute 16/minute 174/89 88.5 kg Roberta Pritchard APRN.[facility] 10/22/2023 8:45 AM Signed SUBJECTIVE: BP Controlled (<130/80) Never done Colorectal Cancer Screening Never done Mammogram Screening due on 04/12/2024 HPI Gilma Rebecca Garcia is a 53 year old female. PMH significant for ACTIVE PROBLEM LIST Hypertension, Essential Chronic Low Back Pain Mixed Incontinence Contusion of Lower Back Head Injury Right Shoulder Pain Acute Pain of Left Knee Acute Hip Pain, Left Right Wrist Pain Altered Bowel Habits Traumatic Coccydynia Status Post Fall PCP: Julita Collins MD She was last seen by Eliana Curtis CNP August 29, 2023. Blood pressure noted to be elevated. Dose of losartan was increased. Concern for sleep apnea, HSAT was ordered. Returns to clinic today for a recheck of blood pressure. She notes she was unable to complete the home sleep study, could not figure out how to apply the attachments and completed. She would like to do an onsite sleep study. Home blood pressure readings: 190/100. She notes no longer feels dizzy, thinks this may have been anxiety and improved with taking Zoloft. HTN: Without report of headache, chest pain, palpitations, dyspnea, peripheral edema, orthopnea, fatigue, or PND. She reports both parents had coronary artery disease in her 50s. States mother had rheumatic heart disease and had valve surgeries as well. Last 14 Encounter BP Readings: Date: BP: 10/22/2023 174/89 08/29/2023 180/100[karen bp average[ 07/16/2023 151/83 07/02/2023 124/80 06/17/2023 130/72 05/20/2023 124/60 04/25/2023 149/76 04/25/2023 142/77 03/01/2023 130/84 01/23/2023 128/72 01/15/2023 130/80 12/31/2022 142/80 12/05/2022 132/70 09/20/2022 142/96 Review of Systems Constitutional: Positive for fatigue. Respiratory: Positive for apnea. Cardiovascular: Negative. Neurological: Negative. Objective BP 174/89 Pulse 63 Resp 16 Wt 88.5 kg (195 lb) LMP 09/26/2014 (Exact Date) BMI 33.70 kg/m? Physical Exam Vitals and nursing note reviewed. Constitutional: Appearance: Normal appearance. HENT: Head: Normocephalic and atraumatic. Eyes: Conjunctiva/sclera: Conjunctivae normal. Neck: Thyroid: No thyromegaly. Vascular: Normal carotid pulses. No JVD. Cardiovascular: Rate and Rhythm: Normal rate and regular rhythm. Pulses: Carotid pulses are 2+ on the right side and 2+ on the left side. Radial pulses are 2+ on the right side and 2+ on the left side. Heart sounds: Normal heart sounds. Pulmonary: Effort: Pulmonary effort is normal. Breath sounds: Normal breath sounds. Abdominal: General: Bowel sounds are normal. Palpations: Abdomen is soft. Musculoskeletal: Right lower leg: No edema. Left lower leg: No edema. Skin: General: Skin is warm and dry. Neurological: General: No focal deficit present. Mental Status: She is alert and oriented to person, place, and time. ALLERGIES Allergen Reactions Mobic [Meloxicam] Hives Naproxen GI Upset Prednisone Hives, Shortness of Breath Tylenol #3 [Codeine] Hives Vicodin [Hydrocodon* GI Upset Nausea Medications sertraline (ZOLOFT) 50 mg tablet Take 1 tablet by mouth once daily. ergocalciferol 50,000 unit capsule (VITAMIN D2, DRISDOL) Take 1 capsule by mouth one time a week. triamcinolone acetonide (KENALOG) 0.1 % cream Apply 1 application to affected area three times a day. Apply sparingly to area for rash/itching. ibuprofen (MOTRIN) 800 mg tablet Take 1 tablet by mouth every 8 hours as needed for pain. Take with food. acetaminophen (TYLENOL EXTRA STRENGTH) 500 mg tablet Take 2 tablets by mouth every 8 hours as needed for pain. metoprolol succinate ER (TOPROL XL) 100 mg take 1 tablet by mouth every day diclofenac (VOLTAREN ARTHRITIS PAIN) 1 % topical gel Apply 4 g to affected area four times daily. polyethylene glycol 3350 (MIRALAX) 17 gram/dose powder For colonoscopy prep losartan (COZAAR) 100 mg tablet Take 1 tablet by mouth once daily. DOSE CHANGE TAKE ONE DAILY PAST MEDICAL HISTORY Diagnosis Date Acute cholecystitis Carpal tunnel syndrome, bilateral Cervical radiculopathy Chronic low back pain Chronic right-sided low back pain without sciatica 06/08/2022 Concussion 08/13/2022 GERD (gastroesophageal reflux disease) History of TIA (transient ischemic attack) HTN (hypertension) Hypokalemia Left hip pain 10/25/2022 Left knee pain 10/25/2022 Rib pain on right side 06/08/2022 Right shoulder pain 08/13/2022 SOB (shortness of breath) Vitamin D deficiency Social History Tobacco Use Smoking status: Never Smokeless to (more content not included)... Normal [facility] ANES POSTPROC EVALon 024 ANES POSTPROC EVAL HNO ID: [id number] Author: CRISTINA SCHULER MD Service: Anesthesiology Author Type: Physician Type: Anesthesia Postprocedure Evaluation Filed: 04/25/2023 09:54 Note Text: POST ANESTHESIA EVALUATION NOTE : 1970 Procedure Summary Date: 04/25/23 Room / Location: SURGERY Anesthesia Start: 924 Anesthesia Stop: Procedure: COLONOSCOPY DIAGNOSTIC Diagnosis: Altered bowel habits Altered bowel habits Scheduled Providers: Lucia Curtis MD; Cristina Schuler MD Responsible Provider: Cristina Schuler MD Anesthesia Type: MAC ASA Status: 3 Anesthesia Type: MAC Last Vitals [place] [address]/73 04/25/23 0945 Temp 97.2 04/25/23 0805 Pulse 100 04/25/23 0948 Resp 117 04/25/23 0948 SpO2 99 % 04/25/2348 Post Anesthesia Patient Status Patient Evaluation: bedside. Anticipated Disposition: phase 2 then home. Neurological Status: aware and responsive. Pulmonary Status: breathing comfortably on room air Airway Control: returned to baseline unsupported. Cardiovascular Status: stable. Pain Management: clinically adequate Postoperative Hydration: acceptable. Intraoperative Events: no significant anesthesia events Post Operative Nausea/Vomiting Status: no significant post operative nausea or vomiting Recommendation: continue current plan of care. Anesthesia Observations No Documentation SIGNATURE: Cristina Schuler MD PATIENT NAME: Gilma Garcia DATE: April 25, 2023 TIME: 9:54 AM CSN: [id number] [facility] ANES PRE-OPon 04-25-2023 ANES PRE-OP HNO ID: [id number] Author: CRISTINA SCHULER MD Service: Anesthesiology Author Type: Physician Type: Anesthesia Preprocedure Evaluation Filed: 04/25/2023 09:19 Note Text: ANESTHESIOLOGY DAY OF SURGERY NOTE : 1970 Procedure Information Date/Time: 04/25/23 0900 Scheduled providers: Lucia Curtis MD; Cristina Schuler MD Procedure: COLONOSCOPY DIAGNOSTIC Location: LD SURGERY Estimated body mass index is 36.49 kg/m? as calculated from the following: Height as of this encounter: 160 cm (5' 3). Weight as of this encounter: 93.4 kg (206 lb). Most recent hematocrit and potassium results: Hematocrit 45.0 01/08/2023 Potassium 4.5 01/08/2023 Relevant Problems CARDIO (+) Essential hypertension, benign I - PHYSICAL EVALUATION AIRWAY Patient intubated: No. Tracheostomy tube not present Mallampati: II. TM distance: >3 FB. Neck ROM: full ROM without neurological symptoms. Mouth opening: adequate. Short neck: yes. Thick neck: yes Mosher present: no Microretrognathia/Ez ronagthia/Recessed Chin: No DENTAL Dental findings: teeth intact. II - ANESTHESIA PLAN ASA Score: 3 Anesthetic Plan: MAC The patient is not a current smoker. NPO Status: adequate Beta Analy Monitoring Plan Monitoring plan: standard ASA. Post Procedure Analgesic Plan Postoperative analgesic plan: parenteral or oral opioids. Informed Consent Anesthetic risks, benefits, alternatives, personnel and consent discussed: yes. Patient / Responsible Democrat agrees to proceed: yes Patient / Surrogate agrees to blood products: Yes DNR status not reviewed with patient and/or family prior to surgery. Significant changes in the patient condition since the History and Physical, not otherwise documented in primary service progress note: no. Potential Anesthesia issues that may suggest increased risk of complications or contraindication to planned procedure: none. Vitals Value Taken Time BP 154/90 04/25/23804 Pulse Resp 16 04/25/23804 Temp 36.1 ?C (97 ?F) 04/25/23804 SpO2 98 % 04/25/23804 Facility-Administered Medications as of 04/25/2023 Medication Dose Route Frequency - lidocaine (PF) 10 mg/mL (1 %) 1-2 mg injection (XYLOCAINE) 0.1-0.2 mL INTRADERMAL PRN - lactated ringers iv infusion 75 mL/hr INTRAVENOUS CONTINUOUS Outpatient Medications as of 04/25/2023 Medication Sig - polyethylene glycol 3350 (MIRALAX) 17 gram/dose powder For colonoscopy prep - losartan (COZAAR) 25 mg tablet Take 1 tablet by mouth once daily. - sertraline (ZOLOFT) 50 mg tablet Take 1 tablet by mouth once daily. - metoprolol succinate ER (TOPROL XL) 100 mg Take 1 tablet by mouth once daily. - naproxen (NAPROSYN) 500 mg tablet Take 1 tablet by mouth two times a day with meals. - omeprazole (PRILOSEC) 20 mg capsule Take 1 capsule by mouth daily before breakfast. 1/2 hr before meal. - hydrocortisone (ANUSOL-HC) 2.5 % rectal cream by RECTAL route two times a day. - Senna 8.6 mg tab Take 1 tablet by mouth two times a day. - ergocalciferol 50,000 unit capsule (VITAMIN D2, DRISDOL) Take 1 capsule by mouth two times a week. TO BE TAKEN ORALLY DIRECTED. Take 1 tablet by mouth twice weekly [id number], then decrease to 1 tablet weekly. - ibuprofen (MOTRIN) 800 mg tablet Take 1 tablet by mouth every 8 hours as needed for pain. Take with food. I have interviewed and examined the patient. I have reviewed the medical record and/or the pre-anesthesia evaluation, pertinent labs, and test results. This contains updated information obtained within 48 hours of Surgery/Procedure. SIGNATURE: Cristina Schuler MD PATIENT NAME: Gilma Garcia DATE: April 25, 2023 TIME: 9:13 AM CSN: [id number] [facility] BRIEF OP NOTon 04-25-2023 BRIEF OP NOT HNO ID: [id number] Author: LUCIA CURTIS MD Service: General Surgery Author Type: Physician Type: Brief Op Note Filed: 04/25/2023 09:52 Note Text: BRIEF OPERATIVE NOTE SURGERY DATE: 04/25/2023 Incision/Procedure Start Time: 9:31 cecal intubation time: 9:35 Incision Close/Procedure End Time: 9:46 Surgeon(s)/Procedural ist(s) and Bi Analyst(s): Ever Procedures: Colonoscopy with polypectomy Anesthesia: MAC Findings: sigmoid colon polyp, < 1 cm, sessile, hemorrhoids Estimated Blood Loss: minimal Specimens: sigmoid colon polyp Complications: None, none Closure Technique: Non-primary Preop Diagnosis: screening for colon cancer Postop Diagnosis: hemorrhoids, sigmoid colon polyp SIGNATURE: Lucia Curtis MD PATIENT NAME: Gilma Garcia DATE: April 25, 2023 TIME: 9:48 AM Acct: [id number] [facility] HISTORY PHYSICALon HISTORY PHYSICAL HNO ID: [id number] Author: LUCIA CURTIS MD Service: General Surgery Author Type: Physician Type: H&P Filed: 04/25/2023 08:11 Note Text: HISTORY AND PHYSICAL Gilma Garcia 1970 REFERRING PHYSICIAN: Lavonne Seay PA-C CHIEF COMPLAINT: Consult (Altered bowel habits) HPI: The patient is a 52 year old female referred for endoscopy. Gilma notes irregular bowel habits. She states that she has complaint of tearing (feels like razor blades) with hard bowel movement. She notes this with occasional hard stools, about few times a month She notes fecal urgency - sometimes with fecal incontinence. She feels pressure to have a bowel movement and then it requires evaluation urgently She would note 2-3 bowel movements per day with loose stools, but not watery and no blood. She denies previous colonoscopy. She notes no colon cancer in her family. She notes occasional BRBPR on TP. PAST MEDICAL HISTORY PAST MEDICAL HISTORY Diagnosis Date Acute cholecystitis Carpal tunnel syndrome, bilateral Cervical radiculopathy Chronic low back pain Chronic right-sided low back pain without sciatica 06/08/2022 Concussion 08/13/2022 GERD (gastroesophageal reflux disease) History of TIA (transient ischemic attack) HTN (hypertension) Hypokalemia Left hip pain 10/25/2022 Left knee pain 10/25/2022 Rib pain on right side 06/08/2022 Right shoulder pain 08/13/2022 SOB (shortness of breath) Vitamin D deficiency PAST SURGICAL HISTORY PAST SURGICAL HISTORY Procedure Laterality Date LAPAROSCOPY SURG CHOLECYSTECTOMY 05/23/2015 TONSILLECTOMY PRIMARY/SECONDARY Tonsillectomy TUBAL LIGATION HX 1993 VAGINAL HYSTERECTOMY UTERUS 250 GM/< 2015 CURRENT MEDICATIONS Current Outpatient Medications Medication Sig naproxen (NAPROSYN) 500 mg tablet Take 1 tablet by mouth two times a day with meals. sertraline (ZOLOFT) 50 mg tablet Take 1 tablet by mouth once daily. Senna 8.6 mg tab Take 1 tablet by mouth two times a day. losartan (COZAAR) 25 mg tablet Take 1 tablet by mouth once daily. metoprolol succinate ER (TOPROL XL) 100 mg Take 1 tablet by mouth once daily. ergocalciferol 50,000 unit capsule (VITAMIN D2, DRISDOL) Take 1 capsule by mouth two times a week. TO BE TAKEN ORALLY DIRECTED. Take 1 tablet by mouth twice weekly [id number], then decrease to 1 tablet weekly. ibuprofen (MOTRIN) 800 mg tablet Take 1 tablet by mouth every 8 hours as needed for pain. Take with food. omeprazole (PRILOSEC) 20 mg capsule Take 1 capsule by mouth daily before breakfast. 1/2 hr before meal. hydrocortisone (ANUSOL-HC) 2.5 % rectal cream by RECTAL route two times a day. No current facility-administered medications for this visit. ALLERGIES: Mobic [Meloxicam], Naproxen, Prednisone, Tylenol #3 [Codeine], and Vicodin [Hydrocodone-Acetamin ophen] PERSONAL HISTORY: SOCIAL HISTORY Social History Tobacco Use Smoking status: Never Smokeless tobacco: Never Vaping Use Vaping Use: Never used Substance Use Topics Alcohol use: No Drug use: No FAMILY HISTORY FAMILY HISTORY Problem Relation Age of Onset Hypertension Mother Hypertension Father Coronary Artery Disease Mother Coronary Artery Disease Father Cancer Mother Breast Cancer Father Lung The review of systems data was entered by the nurse and reviewed by me Nursing Notes: Shelly ReyesSAMEER 03/01/2023 8:14 AM Signed REVIEW OF SYSTEMS: General: The patient denies fatigue, denies weight loss, denies weight gain, denies feeling hot, and denies feelings of cold. Eyes: The patient denies glaucoma, denies eye injury/surgery, does not wear glasses or contacts. Ear/Nose/Throat: The patient NOTES allergies, denies hayfever, denies ear infections, and denies bloody noses. Cardiovascular: The patient denies chest pain, denies heart disease, denies high blood pressure,denies cardiac stent, denies prior heart attack, denies irregular heart beat, denies high cholesterol, denies poor circulation, denies heart failure, other cardiac issues, denies claudication, denies cold feet, denies peripheral arterial stent. Respiratory: The patient denies tuberculosis, denies pneumonia, denies frequent cough, denies pulmonary embolism, denies shortness of breath, and denies coughing up blood. Gastrointestinal: The patient denies difficulty swallowing, denies acid reflux, denies ulcers, denies vomiting, denies jaundice/hepatitis, denies gallbladder problems, denies black or tarry stools, denies hemorrhoids, denies bleeding from rectum, denies diverticulitis, NOTES constipation, NOTES diarrhea, denies loss of stool control, and denies hernias. Kidney/Bladder: The patient denies kidney stones, denies urine infections, and denies bloody urine. Skin: The patient denies a history of skin cancer, denies bleeding/changing moles, and denies a history of skin rash. Neurologic: The patient denies a history of epilepsy/convulsions, de (more content not included)... Normal [facility] NURSING PROGon 04-25-2023 NURSING PROG HNO ID: [id number] Author: LISA MONTOYA, RN Service: Nursing Author Type: Registered Nurse Type: Nursing Progress Note Filed: 04/25/2023 08:17 Note Text: Patient education completed with patient. Patient verbalizes understanding of instructions given. Patient ready for procedure. Normal [facility] OPERATIVE NOon 04-25-2023 OPERATIVE NO HNO ID: [id number] Author: LUCIA CURTIS MD Service: General Surgery Author Type: Physician Type: Operative Report Filed: 04/25/2023 16:10 Note Text: [facility] - Operative Report - GILMA Lozano : 1970 AGE: 52. SEX: F PATIENT TYPE: O HOSP SVC: GNS LOCATION: [facility] ATTENDING PHYSICIAN: Lucia Curtis MD CSN NUMBER: [id number] DATE OF SURGERY/PROCEDURE: 04/25/2023 INCISION/PROCEDURE START TIME: 9:31 AM INCISION CLOSE/PROCEDURE END TIME: 9:46 AM PREOPERATIVE DIAGNOSIS: Screening for colon cancer. POSTOPERATIVE DIAGNOSIS: Hemorrhoids and sigmoid colon polyp. SURGEON: Lucia Curtis MD MORGUE ATTENDANT: No Additional Staff SURGERY/PROCEDURE: Colonoscopy with polypectomy. ANESTHESIA: Monitored anesthesia care LOCATION: [facility] INDICATIONS: Gilma Garcia is a 52-year-old female, who presents for screening for colon cancer via colonoscopy. She has had no previous colonoscopy. She presents for colonoscopy and has been counseled on the risks of procedure including, but not limited to infection, bleeding, perforation of GI tract, inability to complete the procedure, etc. The patient understands and agrees to proceed. This patient did not have a previous colonoscopy. DESCRIPTION OF PROCEDURE: After informed consent was given, the patient was brought to the endoscopy suite. Appropriate time-out protocol was followed. The patient was given IV anesthesia by the anesthesia provider. She was placed in the left lateral decubitus position. The endoscope was lubricated, carefully inserted in the patient's anus, and advanced into the rectum. It was then advanced into the sigmoid colon, then left colon, past splenic flexure into transverse colon, past hepatic flexure down the right colon into the cecum. Cecum was identified by confluence of teniae coli, identification of ileocecal valve, appendiceal orifice, and external palpation. At this level, the colonoscope was slowly retracted back and entire colonic mucosal surface was examined. The colon cleansing preparation was adequate. There was no evidence of any masses, polyps, or lesions in the right colon. There was no evidence of any masses, polyps, or lesions in transverse colon. There was no evidence of any masses, polyps, or lesions in the left colon. In the sigmoid colon, there was a less than 1 cm sessile colon polyp, which was completely removed using a cold snare device. There was no evidence of any masses or polyps in the rectum. Retroflexed view in the rectum revealed hemorrhoidal changes, but no active inflammation or bleeding. The endoscope was removed intact. Digital examination of the anal canal revealed no palpable masses. The patient tolerated the procedure well and brought to recovery room in stable condition. ESTIMATED BLOOD LOSS: Minimal. SPECIMEN: Sigmoid colon polyp. COMPLICATIONS: None. Lucia Curtis MD [id number] /[id number] [facility] SURGICAL PATHOLOGYon 024 CASE REPORT [facility] Comment on above: Order Comment: Speci men Type: TISSUE SPECIMEN Ordering Facility: [facility] Address: [address] [place] [address] Result Comment: Surg ical Pathology Report Case: [id number] Authorizing Provider: Lucia Curtis MD Collected: 04/25/2023 09:45 AM Ordering Location: LD SURGERY Received: 04/25/2023 11:45 AM Pathologist: Yazmin Garza MD Specimen: SIGMOID COLON POLYP Performed By: #### S #### [facility] CLIA [id number] [address] [place] [address] DIAGNOSIS COMMENT Deeper levels reviewed. [facility] Comment on above: Order Comment: Dayan mclaughlin Type: TISSUE SPECIMEN Ordering Facility: [facility] Address: [address] [place] [address] Performed By: #### S #### [facility] CLIA [id number] [address] [place] [address] FINAL DIAGNOSIS [facility] Comment on above: Order Comment: Dayan mclaughlin Type: TISSUE SPECIMEN Ordering Facility: [facility] Address: [address] [place] [address] Result Comment: sherry Henderson, biopsy: - Serrated polyp most consistent with hyperplastic polyp. Performed By: #### S #### [facility] CLIA [id number] [address] FINAL PERFORMING LAB Normal [facility] Comment on above: Order Comment: Speci men Type: TISSUE SPECIMEN Ordering Facility: [facility] Address: [address] [place] [address] Result Comment: Diag nostic interpretation performed at [facility], [address] [place] [address] CLIA# [id number] Business Technology Professor: Kalia Becker M.D. Performed By: #### S #### [facility] CLIA [id number] [address] GROSS DESCRIPTION Normal [facility] Comment on above: Order Comment: Speci men Type: TISSUE SPECIMEN Ordering Facility: [facility] Address: [address] [place] [address] Result Comment: A. S IGMOID COLON POLYP Received in formalin labeled sigmoid colon polyp are two pieces of kurtz, soft tissue aggregating to 0.7 x 0.2 x 0.2 cm. Totally submitted in one cassette. Gross examination performed at [facility], [address] [place] [address] CLIA#[id number] [facility] April 26, 2023 2:15 PM Performed By: #### S #### [facility] CLIA [id number] [address] [place] [address] CT HEAD OR BRAIN W/O CONTRAS Ton 04-15-2023 CT HEAD OR BRAIN W/O CONTRAST ORIGINAL EXAMINATION: CT OF THE HEAD WITHOUT CONTRAST 04/15/2023 9:19 am TECHNIQUE: CT of the head was performed without the administration of intravenous contrast. Automated exposure control, iterative reconstruction, and/or weight based adjustment of the mA/kV was utilized to reduce the radiation dose to as low as reasonably achievable. COMPARISON: 01/22/2023 HISTORY: ORDERING SYSTEM PROVIDED HISTORY: Reason for Exam: INJURY FINDINGS: There is no acute intracranial hemorrhage, hydrocephalus, or mass effect. Ventricular caliber is normal for age. Steinberg-white matter differentiation appears maintained without CT evidence of acute large territorial infarct. Areas of mucosal thickening seen in the paranasal sinuses, greatest of the right maxillary sinus. The mastoid air cells appear clear. Soft tissue density in the bilateral external auditory canals likely reflects cerumen but would be amenable to direct visualization. No acute calvarial abnormality. IMPRESSION: No acute intracranial hemorrhage, hydrocephalus, or mass effect. Interpreted by: Lisset Dudley MD Preliminary Report By: Lisset Dudley MD Electronically signed By Lisset Dudley MD Dictated Date: 04/15/2023 9:35:13 AM Prelim Date: 04/15/2023 9:38:54 AM Sign Date: 04/15/2023 9:38:54 AM Ordering Provider: GERA MURRAY [facility] ([place]) NURSING PROGon 04-15-2023 NURSING PROG HNO ID: [id number] Author: AMANDA GIBSON RN Service: ? Author Type: Registered Nurse Type: Nursing Progress Note Filed: 04/15/2023 10:08 Note Text: Pre-Procedure Checklist Gilma Rebecca Garcia [phone] (home) 1970 52 year old Body mass index is 36.49 kg/m?. 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 No Recent EKG/Cardiac Testing: No Chest pain in the last 6 months (<6 months cardiac clearance needed): No History of: Heart Attack/Stroke/Blood Clot?: no Shortness of Breath: No Asthma: No Inhalers: No Any Outstanding Consults?: No If yes, list: Additional Notes: Normal [facility] XR RIBS 2 VIEWS RIGHT/PA SHERIF ST(AO)on 04-15-2023 XR RIBS 2 VIEWS RIGHT/PA CHEST(AO) ORIGINAL EXAMINATION: 4 XRAY VIEWS OF RIGHT RIBS WITH 2 XRAY VIEWS OF THE CHEST 04/15/2023 9:20 am COMPARISON: Chest x-ray 01/17/2023 HISTORY: ORDERING SYSTEM PROVIDED HISTORY: Reason for Exam: injury; fall on sidewalk FINDINGS: Cardiomediastinal contour is normal. No focal consolidation or pulmonary edema. No pneumothorax or pleural effusion. No acute osseous abnormality. Specifically, no rib fracture. IMPRESSION: No acute radiographic abnormality. Specifically, no rib fracture. I have personally reviewed the images of this examination and agree with the resident's findings and interpretation. Interpreted by: Nic Pickard DO Preliminary Report By: Umesh Gandhi Electronically signed By Nic Pickard DO Dictated Date: 04/15/2023 9:29:27 AM Prelim Date: 04/15/2023 9:32:31 AM Sign Date: 04/15/2023 9:39:37 AM Ordering Provider: GERA MURRAY [facility]) XR SACRUM[facility]R SACRUM/COCCYX MINIMUM 2 VIEWS ORIGINAL EXAMINATION: THREE XRAY VIEWS OF THE SACRUM/COCCYX04/15/2023 9:23 am COMPARISON: February 02, 2023 HISTORY: ORDERING SYSTEM PROVIDED HISTORY: Reason for Exam: injury FINDINGS: Sacroiliac joints appear symmetric. Visualized portions of the pelvic ring are intact. Pubic symphysis is maintained. Slight undulation of the coccyx is similar to prior study, and likely remote. IMPRESSION: No acute fracture or dislocation. Interpreted by: Nic Pickard DO Preliminary Report By: Nic Pickard DO Electronically signed By Nic Pickard DO Dictated Date: 04/15/2023 9:29:52 AM Prelim Date: 04/15/2023 9:32:25 AM Sign Date: 04/15/2023 9:32:25 AM Ordering Provider: GERA MURRAY [facility] ([place]) Absolute lymphocyte countOrd ered By: Kalia Matthews on 03-30-2023 Lymphocytes Auto (Unsp spec) [#/Vol] 1.96 10*3/uL 0.83-4.51 [facility] Basophil percentageOrdered B y: Kalia Matthews on 03-30-2023 Basophils/100 WBC (Bld) 0.6 % 0-1 [facility] Bilirubin [Mass/Vol] 0.40 mg/dL 0.20-1.00 [facility] Comment on above: For patients on eltr ombopag therapy, use of Dimension [place] TBIL is not recommended. Chloride [Moles/Vol] 105 mmol/L 98-107 [facility] Eosinophils/100 WBC (Bld) 0.7 % 0-5 [facility] Glucose [Mass/Vol] 144 mg/dL 74-106 [facility] Comment on above: Fasting Glucose resu lt greater than or equal to 126 mg/dL suggests DIABETES MELLITUS per A.D.A. criteria. Neutrophils (Bld) [#/Vol] 11.0 10*3/uL 2.0-7.7 [facility] Neutrophils/100 WBC (Bld) 77.5 % 47-70 [facility] Potassium [Moles/Vol] 3.5 mmol/L 3.5-5.1 [facility] Protein [Mass/Vol] 8.8 g/dL 6.4-8.2 [facility] Sodium [Moles/Vol] 140 mmol/L 136-145 [facility] WBC (Bld) [#/Vol] 14.2 10*3/uL 4.4-11.0 [facility] Basophil percentage 0-5 SEEN /hpf 0-5 [facility] Bilirubin Test strip Ql (U)O rdered By: Kalia Matthews on 03-30-2023 Bilirubin Ql (U) Negative Negative [facility] Blood erythrocytes count (nu mber/volume)Ordered By: Kalia Matthews on 03-30-2023 RBC (Bld) [#/Vol] 5.92 10*6/uL 4.2-5.4 [facility] Blood hemoglobin measurement (mass/volume)Ordered By: Kalia Matthews on 03-30-2023 Hemoglobin (Bld) [Mass/Vol] 15.6 g/dL 12.0-15. 0 [facility] Blood lymphocytes/100 leukoc ytesOrdered By: Kalia Matthews on 03-30-2023 Lymphocytes/100 WBC (Bld) 13.8 % 19-41 [facility] Blood monocytes/100 leukocyt esOrdered By: Kalia Matthews on 03-30-2023 Monocytes/100 WBC (Bld) 6.9 % 0-10 [facility] Blood platelet mean volumeOr dered By: Kalia Matthews on 03-30-2023 Platelet mean volume (Bld) [Entitic vol] 9.6 fL 6.2-12.0 [facility] Determination of erythrocyte mean corpuscular volume (MCV)Ordered By: Kalia Matthews on 03-30-2023 MCV (RBC) [Entitic vol] 85.1 fL 81-99 [facility] Hematocrit Auto (Bld) [Volum e fraction]Ordered By: Kalia Matthews on 03-30-2023 Hematocrit (Bld) [Volume fraction] 50.4 % 37-47 [facility] Hyaline casts LM.LPF (Urine sed) [#/Area]Ordered By: Kalia Matthews on 03-30-2023 Hyaline casts (Urine sed) [#/Area] 0 /[LPF] 0-5 [facility] Ketones Test strip Ql (U)Ord ered By: Kalia Matthews on 03-30-2023 Ketones Ql (U) Negative Negative [facility] Laboratory - Chemistry and C hemistry - challengeOrdered By: Kalia Matthews on 03-30-2023 ALP [Catalytic activity/Vol] 137 U/L 45-117 [facility] ALT [Catalytic activity/Vol] 21 U/L 13-56 [facility] CO2 [Moles/Vol] 30.0 mmol/L 21.0-32.0 [facility] Globulin (S) [Mass/Vol] 4.8 g/dL 2.2-4.2 [facility] Lipase [Catalytic activity/Vol] 31 U/L 13-75 [facility] Comment on above: Please note:LIPASE r evised reference range effective 22. New Lipase methodology. Expected to produce lower values than the previous assay method. NEW Reference Range: 13 - 75 U/L Urea nitrogen/Creatinine [Mass ratio] 12.2 mg/mg 10-20 [facility] Laboratory - Hematology and Cell countsOrdered By: Kalia Matthews on 03-30-2023 Erythrocyte distribution width (RBC) [Entitic vol] 47.7 fL 35.1-43.9 [facility] Erythrocyte distribution width (RBC) [Ratio] 15.5 % 11.6-14.6 [facility] Immature granulocytes/100 WBC (Bld) 0.500 % 0.0-0.9 [facility] Comment on above: IG% - Immature Granu locytes (promyelocytes, myelocytes and metamyelocytes) > 1% indicates that a LEFT SHIFT is Present. MCH (RBC) [Entitic mass] 26.4 pg 27.0-32.0 [facility] Nucleated RBC/100 WBC (Bld) [Ratio] 0 % 0-5 [facility] MCHC Auto (RBC) [Mass/Vol]Or dered By: Kalia Matthews on 03-30-2023 MCHC (RBC) [Mass/Vol] 31.0 g/dL 32-36 [facility] Mucus LM Ql (Urine sed)Order ed By: Kaila Matthews on 03-30-2023 Mucus Ql (Urine sed) 2+ /hpf [facility] Nitrite Test strip Ql (U)Ord ered By: Kalia Matthews on 03-30-2023 Nitrite Ql (U) Negative Negative [facility] No Panel InformationOrdered By: Kalia Matthews on 03-30-2023 Estimated Creatinine Clearance Calc 65.63 ml/min [facility] Estimated GFR (MDRD) Amer 94 mL/min >60 [facility] Comment on above: GFR Calc Estimated GFR (MDRD) Non-Af Amer 78 mL/min >60 [facility] Comment on above: Non- GFR Calc Urine Transitional Epithelial Cells 0-5 SEEN /hpf 0-5 [facility] Platelets bldOrdered By: Eli Matthews on 03-30-2023 Platelets (Bld) [#/Vol] 443 10*3/uL 150-450 [facility] Protein Test strip Ql (U)Ord ered By: Kalia Matthews on 03-30-2023 Protein Ql (U) 30 mg/dl Negative [facility] Serum or plasma albumin ki urement (mass/volume)Ordered By: Kalia Matthews on 03-30-2023 Albumin [Mass/Vol] 4.0 g/dL 3.2-5.0 [facility] Serum or plasma albumin/glob ulin mass ratioOrdered By: Kalia Matthews on 03-30-2023 Albumin/Globulin [Mass ratio] 0.8 {ratio} 0.9-2.4 [facility] Serum or plasma calcium ki urement (mass/volume)Ordered By: Kalia Matthews on 03-30-2023 Calcium [Mass/Vol] 9.4 mg/dL 8.5-10.1 [facility] Serum or plasma creatinine m easurement (mass/volume)Ordered By: Kalia Matthews on 03-30-2023 Creatinine [Mass/Vol] 0.82 mg/dL 0.55-1.02 [facility] Comment on above: The validity of the calculated GFR & GFRAA in patients over 70 years has not been determined. Clinical correlation is essential. Serum or plasma urea nitroge n measurement (mass/volume)Ordered By: Kalia Matthews on 03-30-2023 Urea nitrogen [Mass/Vol] 10 mg/dL 7-18 [facility] Squamous epithelial cells de tection in urine sediment by light microscopyOrdered By: Kalia Matthews on 03-30-2023 Epithelial cells.squamous LM Ql (Urine sed) 0-5 SEEN /hpf 5-10 [facility] Thin prep Papanicolaou smear with manual screeningOrdered By: Kalia Matthews on 03-30-2023 Thin prep Papanicolaou smear with manual screening 13 U/L 15-37 [facility] Thin prep Papanicolaou smear with manual screening 5 5-15 [facility] Urine blood detectionOrdered By: Kalia Matthews on 03-30-2023 RBC Ql (U) 10 /ul Negative [facility] RBC Ql (U) 0 SEEN /hpf 0-5 [facility] Urine clarityOrdered By: Eli Matthews on 03-30-2023 Clarity (U) Clear Clear [facility] Urine color determinationOrd ered By: Kalia Matthews on 03-30-2023 Color (U) Yellow Yellow [facility] Urine glucose detectionOrder ed By: Kalia Matthews on 03-30-2023 Glucose Ql (U) Normal mg/dl Normal [facility] Urine leukocyte esterase det ection by dipstickOrdered By: Kalia Matthews on 03-30-2023 Leukocyte esterase Test strip Ql (U) 25 /ul Negative [facility] Urine pHOrdered By: Kalia hanley on 03-30-2023 pH (U) 6.0 [pH] 5.0 - 8.0 [facility] Urine sediment bacteria coun t by microscopy (number/high power field)Ordered By: Kalia Matthews on 03-30-2023 Bacteria LM.HPF (Urine sed) [#/Area] 0 /[HPF] None Seen [facility] Urine specific gravity measu rementOrdered By: Kalia Matthews on 03-30-2023 Specific gravity (U) [Rel density] 1.025 1.002-1.03 0 [facility] Urobilinogen Auto test strip Ql (U)Ordered By: Kalia Matthews on 03-30-2023 Urobilinogen Ql (U) Normal mg/dl Normal [facility] .Auto Diffon 02-02-2023 Basophil, Absolute 0.1 10 3/mcL Normal 0.0-0.2 [facility] ([place]) Comment on above: Performed By: #### A DIFF, CMP, CBC, GFR, MDW, LIP, ANEU, MG #### [address] [address] Basophils/100 WBC (Bld) 0.7 % Normal 0.0-2.5 [facility] ([place]) Comment on above: Performed By: #### A DIFF, CMP, CBC, GFR, MDW, LIP, ANEU, MG #### [address] [address] Eosinophil, Absolute 0.1 10 3/mcL Normal 0.0-0.4 [facility] ([place]) Comment on above: Performed By: #### A DIFF, CMP, CBC, GFR, MDW, LIP, ANEU, MG #### [address] [address] Eosinophils/100 WBC (Bld) 0.8 % Normal 0.0-7.0 [facility] ([place]) Comment on above: Performed By: #### A DIFF, CMP, CBC, GFR, MDW, LIP, ANEU, MG #### [address] [address] Lymphocyte, Absolute 1.7 10 3/mcL Normal 0.8-3.9 [facility] ([place]) Comment on above: Performed By: #### A DIFF, CMP, CBC, GFR, MDW, LIP, ANEU, MG #### [address] [address] Lymphocytes/100 WBC (Bld) 16.1 % Normal 10.0-50.0 [facility] ([place]) Comment on above: Performed By: #### A DIFF, CMP, CBC, GFR, MDW, LIP, ANEU, MG #### [address] [address] Monocyte, Absolute 0.9 10 3/mcL Normal 0.2-1.0 [facility] ([place]) Comment on above: Performed By: #### A DIFF, CMP, CBC, GFR, MDW, LIP, ANEU, MG #### [address] [address] Monocytes/100 WBC (Bld) 8.2 % Normal 1.7-13.0 [facility] ([place]) Comment on above: Performed By: #### A DIFF, CMP, CBC, GFR, MDW, LIP, ANEU, MG #### [address] [address] Neutrophils/100 WBC (Bld) 74.2 % Normal 37.0-80.0 [facility] ([place]) Comment on above: Performed By: #### A DIFF, CMP, CBC, GFR, MDW, LIP, ANEU, MG #### [address] [address] .GFRon 02-02-2023 GFR 84 ml/min/1.73sqm Normal [facility] ([place]) Comment on above: Result Comment: GFR Population mean for , Non- Americans Ages 20-29 = 116 mL/min/1.73 sq.m. Ages 30-39 = 107 mL/min/1.73 sq.m. Ages 40-49 = 99 mL/min/1.73 sq.m. Ages 50-59 = 93 mL/min/1.73 sq.m. Ages 60-69 = 85 mL/min/1.73 sq.m. Ages 70+ = 75 mL/min/1.73 sq.m. Chronic Kidney Disease: Less than 60 mL/min/1.73 square meters End Stage Renal Disease: Less than 15 mL/min/1.73 square meters Performed By: #### A DIFF, CMP, CBC, GFR, MDW, LIP, ANEU, MG ####[address] [place], [place] [address] GFR Non- 69 ml/min/1.73sqm Normal [facility] ([place]) Comment on above: Result Comment: GFR Population mean for , Non- Americans Ages 20-29 = 116 mL/min/1.73 sq.m. Ages 30-39 = 107 mL/min/1.73 sq.m. Ages 40-49 = 99 mL/min/1.73 sq.m. Ages 50-59 = 93 mL/min/1.73 sq.m. Ages 60-69 = 85 mL/min/1.73 sq.m. Ages 70+ = 75 mL/min/1.73 sq.m. Chronic Kidney Disease: Less than 60 mL/min/1.73 square meters End Stage Renal Disease: Less than 15 mL/min/1.73 square meters Performed By: #### A DIFF, CMP, CBC, GFR, MDW, LIP, ANEU, MG ####[id number] [place], [place] [address] .MDWon 02-02-2023 Monocyte Distribution Width 16.25 Normal 0.00-20. 00 [facility] ([place]) Comment on above: Result Comment: For ED adult patients suspected of sepsis, MDW<=20.0 does not rule out sepsis or risk of sepsis Performed By: #### A DIFF, CMP, CBC, GFR, MDW, LIP, ANEU, MG #### [address] [address] .NEUABSon 02-02-2023 Neutrophil, Absolute 7.9 10 3/mcL High 2.9-6.2 [facility] ([place]) Comment on above: Performed By: #### A DIFF, CMP, CBC, GFR, MDW, LIP, ANEU, MG #### [address] [place], [place] [address] .Urinalysis Microscopic (AO) on 02-02-2023 UA Amorphus 1+ /hpf Normal [facility] ([place]) Comment on above: Performed By: #### U A, UAMICAO ####[address] [place], [place] [address] UA Bacteria Trace Abnormal [facility] ([place]) Comment on above: Performed By: #### U A, UAMICAO ####[address] [place], [place] [address] UA Mucous 2+ /hpf Normal [facility] ([place]) Comment on above: Performed By: #### U A, UAMICAO ####[address] [place], [place] [address] UA RBC LOADED Abnormal None Seen [facility] ([place]) Comment on above: Performed By: #### U A, UAMICAO ####[address] [place], [place] [address] UA Squam Epithelial 0-5 Abnormal None Seen [facility] ([place]) Comment on above: Performed By: #### U A, UAMICAO ####[address] [place], [place] [address] UA WBC None Seen Normal None Seen [facility] ([place]) Comment on above: Performed By: #### U A, UAMICAO ####[address] [place], [place] [address] CBCon 02-02-2023 Erythrocyte distribution width (RBC) [Ratio] 15.0 % High 11.5-14.5 [facility] ([place]) Comment on above: Performed By: #### A DIFF, CMP, CBC, GFR, MDW, LIP, ANEU, MG #### [address] [place], [place] [address] Hematocrit (Bld) [Volume fraction] 42.3 % Normal 37.0-47.0 [facility] ([place]) Comment on above: Performed By: #### A DIFF, CMP, CBC, GFR, MDW, LIP, ANEU, MG #### [address] [place], [place] [address] Hgb 14.3 G/dL Normal 12.0-16.0 [facility] ([place]) Comment on above: Performed By: #### A DIFF, CMP, CBC, GFR, MDW, LIP, ANEU, MG #### [address] [address] MCH (RBC) [Entitic mass] 27.4 pg Normal 27.0-31.2 [facility] ([place]) Comment on above: Performed By: #### A DIFF, CMP, CBC, GFR, MDW, LIP, ANEU, MG #### [address] [address] MCHC 33.8 G/dL Normal 33.0-37.0 [facility] ([place]) Comment on above: Performed By: #### A DIFF, CMP, CBC, GFR, MDW, LIP, ANEU, MG #### [address] [address] MCV (RBC) [Entitic vol] 81.1 fL Normal 80.0-94.0 [facility] ([place]) Comment on above: Performed By: #### A DIFF, CMP, CBC, GFR, MDW, LIP, ANEU, MG #### [address] [address] Platelet 372 10 3/mcL Normal 130-400 [facility] ([place]) Comment on above: Performed By: #### A DIFF, CMP, CBC, GFR, MDW, LIP, ANEU, MG #### [address] [address] Platelet mean volume (Bld) [Entitic vol] 7.8 fL Normal 7.4-10.4 [facility] ([place]) Comment on above: Performed By: #### A DIFF, CMP, CBC, GFR, MDW, LIP, ANEU, MG #### [address] [address] RBC 5.22 10 6/mcL Normal 4.20-5.40 [facility] ([place]) Comment on above: Performed By: #### A DIFF, CMP, CBC, GFR, MDW, LIP, ANEU, MG #### [address] [address] [place], [place] [address] WBC 10.7 10 3/mcL Normal 4.6-10.8 [facility] ([place]) Comment on above: Performed By: #### A DIFF, CMP, CBC, GFR, MDW, LIP, ANEU, MG #### [address] [place], [place] [address] CMPon 02-02-2023 Albumin Level 3.8 G/dL Normal 3.5-5.0 [facility] ([place]) Comment on above: Performed By: #### A DIFF, CMP, CBC, GFR, MDW, LIP, ANEU, MG ####[address] [place], [place] [address] Albumin/Globulin [Mass ratio] 1.0 {ratio} Low 1.1-2.5 [facility] ([place]) Comment on above: Performed By: #### A DIFF, CMP, CBC, GFR, MDW, LIP, ANEU, MG ####[address] [place], [place] [address] ALP [Catalytic activity/Vol] 135 U/L Normal 40-135 [facility] ([place]) Comment on above: Performed By: #### A DIFF, CMP, CBC, GFR, MDW, LIP, ANEU, MG ####[address] [place], [place] [address] ALT [Catalytic activity/Vol] 23 U/L Normal 14-59 [facility] ([place]) Comment on above: Performed By: #### A DIFF, CMP, CBC, GFR, MDW, LIP, ANEU, MG ####[address] [place], [place] [address] AST [Catalytic activity/Vol] 20 U/L Normal 10-40 [facility] ([place]) Comment on above: Performed By: #### A DIFF, CMP, CBC, GFR, MDW, LIP, ANEU, MG ####[address] [place], [place] [address] Bili Total 0.3 mg/dL Normal 0.2-1.0 [facility] ([place]) Comment on above: Result Comment: Use of this assay is not recommended for patients undergoing treatment with eltrombopag due to the potential for falsely elevated results. Performed By: #### A DIFF, CMP, CBC, GFR, MDW, LIP, ANEU, MG ####[address] [place], [place] [address] BUN/Creatinine Ratio 14 ratio Normal 7-27 [facility] ([place]) Comment on above: Performed By: #### A DIFF, CMP, CBC, GFR, MDW, LIP, ANEU, MG ####[address] [place], [place] [address] Calcium [Mass/Vol] 9.2 mg/dL Normal 8.4-10.2 [facility] Comment on above: Performed By: #### A DIFF, CMP, CBC, GFR, MDW, LIP, ANEU, MG ####[address] [place], [place] [address] Chloride [Moles/Vol] 100 mmol/L Normal 98-107 [facility] ([place]) Comment on above: Performed By: #### A DIFF, CMP, CBC, GFR, MDW, LIP, ANEU, MG ####[address] [place], [place] [address] CO2 [Moles/Vol] 29 mmol/L Normal 22-29 [facility] ([place]) Comment on above: Performed By: #### A DIFF, CMP, CBC, GFR, MDW, LIP, ANEU, MG ####[address] [place], [place] [address] Creatinine [Mass/Vol] 0.86 mg/dL Normal 0.55-1.02 [facility] ([place]) Comment on above: Performed By: #### A DIFF, CMP, CBC, GFR, MDW, LIP, ANEU, MG ####[address] [place], [place] [address] Electrolyte Balance 9.0 mEq/L Normal 4.0-15.0 [facility] ([place]) Comment on above: Performed By: #### A DIFF, CMP, CBC, GFR, MDW, LIP, ANEU, MG ####[address] [place], [place] [address] Globulin 3.9 G/dL Normal [facility] ([place]) Comment on above: Performed By: #### A DIFF, CMP, CBC, GFR, MDW, LIP, ANEU, MG ####[address] [place], [place] [address] Glucose [Mass/Vol] 111 mg/dL High 70-105 [facility] [place] Comment on above: Performed By: #### A DIFF, CMP, CBC, GFR, MDW, LIP, ANEU, MG ####[address] [place], [place] [address] Potassium [Moles/Vol] 4.1 mmol/L Normal 3.5-5.1 [facility] ([place]) Comment on above: Performed By: #### A DIFF, CMP, CBC, GFR, MDW, LIP, ANEU, MG ####[address] [place], [place] [address] Sodium [Moles/Vol] 138 mmol/L Normal 136-145 [facility] [place] Comment on above: Performed By: #### A DIFF, CMP, CBC, GFR, MDW, LIP, ANEU, MG ####[address] [place], [place] [address] Total Protein 7.7 G/dL Normal 6.4-8.2 [facility] ([place]) Comment on above: Performed By: #### A DIFF, CMP, CBC, GFR, MDW, LIP, ANEU, MG ####[address] [place], [place] [address] Urea nitrogen [Mass/Vol] 12 mg/dL Normal 7-18 [facility] ([place]) Comment on above: Performed By: #### A DIFF, CMP, CBC, GFR, MDW, LIP, ANEU, MG ####[address] [place], [place] [address] CT ABD/PELVIS W/ IV CONTRAST ONLYon 02-02-2023 CT ABD/PELVIS W/ IV CONTRAST ONLY ORIGINAL EXAMINATION: CT OF THE ABDOMEN AND PELVIS WITH [id number]/28/2023 4:16 pm TECHNIQUE: CT of the abdomen and pelvis was performed with the administration of intravenous contrast. Multiplanar reformatted images are provided for review. Automated exposure control, iterative reconstruction, and/or weight based adjustment of the mA/kV was utilized to reduce the radiation dose to as low as reasonably achievable. COMPARISON: None HISTORY: ORDERING SYSTEM PROVIDED HISTORY: Reason for Exam: Right lower quadrant pain FINDINGS: The liver is unremarkable in size, contour, and attenuation. There is no intra or extrahepatic biliary duct dilation. No focal mass identified. The gallbladder is surgically absent. The pancreas, spleen, and adrenal glands are unremarkable. The kidneys enhance symmetrically without evidence of hydronephrosis or mass. The ureters are normal course and caliber. There is no evidence of urolithiasis. The visualized esophagus, stomach, and duodenum are unremarkable. The visualized aorta is nonaneurysmal. The GI tract exhibits no acute abnormalities. Minimal diverticulosis without evidence of diverticulitis. Unremarkable appendix. No pathologically enlarged retroperitoneal, mesenteric, or pelvic lymph nodes are identified. There is no free intraperitoneal air or fluid. The urinary bladder is well-distended without wall thickening or focal mass. The uterus appears to be surgically absent. No acute or suspicious soft tissue or bony findings. Tiny fat containing umbilical hernia. Degenerative spine. Provided images of the lower thorax demonstrate mild bibasilar atelectasis. IMPRESSION: No acute abnormality identified within the abdomen or pelvis. I have personally reviewed the images of this examination and agree with the resident's finding and interpretation. Interpreted by: Bryant Hartman MD Preliminary Report By: Isabella Bill Electronically signed By Bryant Hartman MD Dictated Date: 02/02/2023 4:18:41 PM Prelim Date: 02/02/2023 4:25:20 PM Sign Date: 02/02/2023 4:29:08 PM Ordering Provider: ISABELLA PEREZ [facility] ([place]) LABORATORYOrdered By: SYSTEM SYSTEM on 02-02-2023 Albumin BCP dye [Mass/Vol] 3.8 G/dL Inval id Interpretation Code 3.5 - 5.0 G/dL AO ADM SS Albumin/Globulin [Mass ratio] 1.0 {ratio} Invalid Interpretation Code 1.1 - 2.5 ratio AO ADM SS ALP [Catalytic activity/Vol] 135 U/L Invalid Interpretation Code 40 - 135 U/L AO ADM SS ALT With P-5'-P [Catalytic activity/Vol] 23 U/L Invalid Interpretation Code 14 - 59 U/L AO ADM SS AST With P-5'-P [Catalytic activity/Vol] 20 U/L Invalid Interpretation Code 10 - 40 U/L AO ADM SS Basophil, Absolute 0.1 103/mcL Invalid Interpretation Code 0.0 - 0.2 10^3/mcL AO Workflow SS Basophils/100 WBC (Bld) 0.7 % Invalid Interpretation Code 0.0 - 2.5 % AO Workflow SS Bilirubin [Mass/Vol] 0.3 mg/dL Invalid Interpretation Code 0.2 - 1.0 mg/dL AO ADM SS Comment on above: Interpretive Data: U se of this assay is not recommended for patients undergoing treatment with eltrombopag due to the potential for falsely elevated results. Calcium [Mass/Vol] 9.2 mg/dL Invalid Interpretation Code 8.4 - 10.2 mg/dL AO ADM SS Chloride [Moles/Vol] 100 mmol/L Invalid Interpretation Code 98 - 107 mmol/L AO ADM SS CO2 [Moles/Vol] 29 mmol/L Invalid Interpretation Code 22 - 29 mmol/L AO ADM SS Creatinine [Mass/Vol] 0.86 mg/dL Invalid Interpretation Code 0.55 - 1.02 mg/dL AO ADM SS Electrolyte Balance 9.0 mEq/L Invalid Interpretation Code 4.0 - 15.0 mEq/L AO ADM SS Eosinophil, Absolute 0.1 103/mcL Invalid Interpretation Code 0.0 - 0.4 10^3/mcL AO Workflow SS Eosinophils/100 WBC (Bld) 0.8 % Invali d Interpretation Code 0.0 - 7.0 % AO Workflow SS Erythrocyte distribution width (RBC) [Ratio] 15.0 % Invalid Interpretation Code 11.5 - 14.5 % AO Workflow SS GFR/1.73 sq M.predicted among blacks MDRD (S/P/Bld) [Vol rate/Area] 84 ml/min/1.73sqm Invalid Interpretation Code AO Chemistry S Comment on above: Interpretive Data: GFR Population mean for , Non- Americans Ages 20-29 = 116 mL/min/1.73 sq.m. Ages 30-39 = 107 mL/min/1.73 sq.m. Ages 40-49 = 99 mL/min/1.73 sq.m. Ages 50-59 = 93 mL/min/1.73 sq.m. Ages 60-69 = 85 mL/min/1.73 sq.m. Ages 70+ = 75 mL/min/1.73 sq.m. Chronic Kidney Disease: Less than 60 mL/min/1.73 square meters End Stage Renal Disease: Less than 15 mL/min/1.73 square meters GFR/1.73 sq M.predicted among non-blacks MDRD (S/P/Bld) [Vol rate/Area] 69 ml/min/1.73sqm Invalid Interpretation Code AO Chemistry S Comment on above: Interpretive Data: GFR Population mean for , Non- Americans Ages 20-29 = 116 mL/min/1.73 sq.m. Ages 30-39 = 107 mL/min/1.73 sq.m. Ages 40-49 = 99 mL/min/1.73 sq.m. Ages 50-59 = 93 mL/min/1.73 sq.m. Ages 60-69 = 85 mL/min/1.73 sq.m. Ages 70+ = 75 mL/min/1.73 sq.m. Chronic Kidney Disease: Less than 60 mL/min/1.73 square meters End Stage Renal Disease: Less than 15 mL/min/1.73 square meters Globulin 3.9 G/dL Invalid Interpretation Code AO ADM SS Glucose [Mass/Vol] 111 mg/dL Invalid Interpretation Code 70 - 105 mg/dL AO ADM SS Hematocrit (Bld) [Volume fraction] 42.3 % Invalid Interpretation Code 37.0 - 47.0 % AO Workflow SS Hemoglobin (Bld) [Mass/Vol] 14.3 G/dL Inva lid Interpretation Code 12.0 - 16.0 G/dL AO Workflow SS Lipase [Catalytic activity/Vol] 33 U/L Invalid Interpretation Code 16 - 77 U/L AO ADM SS Lymphocyte, Absolute 1.7 103/mcL Invalid Interpretation Code 0.8 - 3.9 10^3/mcL AO Workflow SS Lymphocytes/100 WBC (Bld) 16.1 % Invali d Interpretation Code 10.0 - 50.0 % AO Workflow SS Magnesium [Mass/Vol] 1.9 mg/dL Invalid Interpretation Code 1.8 - 2.4 mg/dL AO ADM SS MCH (RBC) [Entitic mass] 27.4 pg Invalid Interpretation Code 27.0 - 31.2 pg AO Workflow SS MCHC 33.8 G/dL Invalid Interpretation Code 33.0 - 37.0 G/dL AO Workflow SS MCV (RBC) [Entitic vol] 81.1 fL Invalid Interpretation Code 80.0 - 94.0 fL AO Workflow SS Monocyte distribution width Auto (Bld) [Entitic vol] 16.25 1 Invalid Interpretation Code 0.00 - 20.00 AO Workflow SS Comment on above: Result Comment: For ED adult patients suspected of sepsis, MDW<=20.0 does not rule out sepsis or risk of sepsis Monocyte, Absolute 0.9 103/mcL Invalid Interpretation Code 0.2 - 1.0 10^3/mcL AO Workflow SS Monocytes/100 WBC (Bld) 8.2 % Invalid Interpretation Code 1.7 - 13.0 % AO Workflow SS Neutrophil, Absolute 7.9 103/mcL Invalid Interpretation Code 2.9 - 6.2 10^3/mcL AO Workflow SS Neutrophils/100 WBC (Bld) 74.2 % Invali d Interpretation Code 37.0 - 80.0 % AO Workflow SS Platelet mean volume (Bld) [Entitic vol] 7.8 fL Invalid Interpretation Code 7.4 - 10.4 fL AO Workflow SS Platelets (Bld) [#/Vol] 372 103/mcL Invalid Interpretation Code 130 - 400 10^3/mcL AO Workflow SS Potassium [Moles/Vol] 4.1 mmol/L Invalid Interpretation Code 3.5 - 5.1 mmol/L AO ADM SS Protein [Mass/Vol] 7.7 G/dL Invalid Interpretation Code 6.4 - 8.2 G/dL AO ADM SS RBC (Bld) [#/Vol] 5.22 106/mcL Invalid Interpretation Code 4.20 - 5.40 10^6/mcL AO Workflow SS Sodium [Moles/Vol] 138 mmol/L Invalid Interpretation Code 136 - 145 mmol/L AO ADM SS Urea nitrogen [Mass/Vol] 12 mg/dL Invalid Interpretation Code 7 - 18 mg/dL AO ADM SS Urea nitrogen/Creatinine [Mass ratio] 14 ratio Invalid Interpretation Code 7 - 27 ratio AO ADM SS WBC (Bld) [#/Vol] 10.7 103/mcL Invalid Interpretation Code 4.6 - 10.8 10^3/mcL AO Workflow SS LABORATORYOrdered By: Zari Gallo on 02-02-2023 Appearance (U) Clear (02/02/23 2:55 PM) Invalid Interpretation Code Clear AO Auto Urine SS Bacteria LM.HPF (Urine sed) [#/Area] Trace /HPF Invalid Interpretation Code AO Auto Urine SS Bilirubin Ql (U) Negative (02/02/23 2:55 PM) Invalid Interpretation Code Negative AO Auto Urine SS Color (U) Yellow (02/02/23 2:55 PM) Invalid Interpretation Code AO Auto Urine SS Crystals.amorphous LM.HPF (Urine sed) [#/Area] 1 /[HPF] Invalid Interpretation Code AO Auto Urine SS Glucose Test strip (U) [Mass/Vol] Negative Invalid Interpretation Code Negative AO Auto Urine SS Hemoglobin Auto test strip (U) [Mass/Vol] Moderate *ABN* (02/02/23 2:55 PM) Invalid Interpretation Code Negative AO Auto Urine SS Ketones Ql (U) Negative Invalid Interpretation Code Negative AO Auto Urine SS UA Leuk Est Negative (02/02/23 2:55 PM) Invalid Interpretation Code Negative AO Auto Urine SS UA Mucous 2+ /HPF Invalid Interpretation Code AO Auto Urine SS UA Nitrite Negative (02/02/23 2:55 PM) Invalid Interpretation Code Negative AO Auto Urine SS UA pH 5.5 (02/02/23 2:55 PM) Invalid Interpretation Code 5.0 - 8.0 AO Auto Urine SS UA Protein Negative Invalid Interpretation Code Negative AO Auto Urine SS UA RBC LOADED /HPF Invalid Interpretation Code None Seen AO Auto Urine SS UA Spec Grav 1.025 (02/02/23 2:55 PM) Invalid Interpretation Code 1.015-1.02 5 AO Auto Urine SS UA Specimen Type Clean Catch (02/02/23 2:55 PM) Invalid Interpretation Code AO Auto Urine SS UA Squam Epithelial 0-5 /HPF Invalid Interpretation Code None Seen AO Auto Urine SS UA Urobilinogen 0.2 E.U./dL Invalid Interpretation Code 0.2-1.0 AO Auto Urine SS WBC LM.HPF (Urine sed) [#/Area] None Seen /HPF Invalid Interpretation Code None Seen AO Auto Urine SS LIPon 02-02-2023 Lipase Level 33 U/L Normal 16-77 [facility] ([place]) Comment on above: Performed By: #### A DIFF, CMP, CBC, GFR, MDW, LIP, ANEU, MG #### [address] [address] MGon 02-02-2023 Magnesium [Mass/Vol] 1.9 mg/dL Normal 1.8-2.4 [facility] ([place]) Comment on above: Performed By: #### A DIFF, CMP, CBC, GFR, MDW, LIP, ANEU, MG #### [address]enee [address]iga [place], [place] [address] UAon 02-02-2023 Color (U) Yellow Normal [facility] ([place]) Comment on above: Performed By: #### U A, UAMICAO ####[address] [place] [address] Glucose (U) [Mass/Vol] Negative Normal Negative [facility] ([place]) Comment on above: Performed By: #### U A, UAMICAO ####[address] [place] [address] Ketones Ql (U) Negative Normal Negative [facility] ([place]) Comment on above: Performed By: #### U A, UAMICAO ####[address] [address] UA Appear Clear Normal Clear [facility] ([place]) Comment on above: Performed By: #### U A, UAMICAO ####[address] [place] [address] UA Blood Moderate Abnormal Negative [facility] ([place]) Comment on above: Performed By: #### U A, UAMICAO ####[address] [place] [address] UA Leuk Est Negative Normal Negative [facility] ([place]) Comment on above: Performed By: #### U A, UAMICAO ####[address] [place] [address] UA Nitrite Negative Normal Negative [facility] ([place]) Comment on above: Performed By: #### U A, UAMICAO ####[address] [place] [address] UA pH 5.5 Normal 5.0 - 8.0 [facility] ([place]) Comment on above: Performed By: #### U A, UAMICAO ####[address] [place], [place] [address] UA Protein Negative Normal Negative [facility] ([place]) Comment on above: Performed By: #### U A UAMICAO ####[address] [place], [place] [address] UA Spec Grav 1.025 Normal 1.015-1.02 5 [facility] ([place]) Comment on above: Performed By: #### U A UAMICAO ####[address] [place], [place] [address] UA Specimen Type Clean Catch Normal [facility] ([place]) Comment on above: Performed By: #### U A UAMICAO ####[address] [place] [id number] UA Urobilinogen 0.2 E.U./dL Normal 0.2-1.0 [facility] ([place]) Comment on above: Performed By: #### U A UAMICAO ####[address] [place] [address] Urobilinogen (U) [Mass/Vol] Negative Normal Negative [facility] ([place]) Comment on above: Performed By: #### U A UAMICAO ####[address] [place] [id number] CT HEAD OR BRAIN W/O CONTRAS Ton 01-22-2023 CT HEAD OR BRAIN W/O CONTRAST ORIGINAL EXAMINATION: CT OF THE HEAD WITHOUT CONTRAST 01/22/2023 8:49 am TECHNIQUE: CT of the head was performed without the administration of intravenous contrast. Automated exposure control, iterative reconstruction, and/or weight based adjustment of the mA/kV was utilized to reduce the radiation dose to as low as reasonably achievable. COMPARISON: 01/17/2023 HISTORY: ORDERING SYSTEM PROVIDED HISTORY: Reason for Exam: pain/headache FINDINGS: BRAIN/VENTRICLES: There is no acute intracranial hemorrhage, mass effect or midline shift. No abnormal extra-axial fluid collection. There is age-related atrophy and microangiopathic change. The steinberg-white differentiation is maintained without evidence of an acute infarct. There is no evidence of hydrocephalus. ORBITS: The visualized portion of the orbits demonstrate no acute abnormality. SINUSES: The visualized paranasal sinuses and mastoid air cells demonstrate no acute abnormality. SOFT TISSUES/SKULL: No acute abnormality of the visualized skull or soft tissues. IMPRESSION: No acute intracranial abnormality. Interpreted by: Bryant Oropeza MD Preliminary Report By: Bryant Oropeza MD Electronically signed By Bryant Oropeza MD Dictated Date: 01/22/2023 8:59:22 AM Prelim Date: 01/22/2023 9:00:44 AM Sign Date: 01/22/2023 9:00:44 AM Ordering Provider: RAI PURVIS [facility]) CT HEAD OR BRAIN W/O CONTRAS Ton 01-17-2023 CT HEAD OR BRAIN W/O CONTRAST ORIGINAL EXAMINATION: CT HEAD TECHNIQUE: Axial CT images from skull base to vertex without IV contrast. This exam was performed according to our departmental dose optimization program, and includes the following measures where applicable: automated exposure control, adjustment of the mAs and/or kVp according to patient size and/or exam, and an iterative reconstruction algorithm. COMPARISON: None HISTORY: ORDERING SYSTEM PROVIDED HISTORY: Reason for Exam: fall yesterday evening. MATTHEW, dizziness, nausea. pain; trauma patient FINDINGS: Parenchyma: No acute intracranial hemorrhage, midline shift, mass effect or acute ischemic infarct is demonstrated. The steinberg-white matter junctions are preserved. No space occupying intra-axial masses or extra-axial fluid collections are seen. Mild age commensurate parenchymal volume loss most pronounced in the posterior fossa noted. Ventricles: No evidence of hydrocephalus or ventricular effacement. Vessels: No significant atherosclerotic calcifications. Orbits: Unremarkable. Calvarium: Unremarkable. Paranasal sinuses: Clear. Mastoid sinuses: Clear. IMPRESSION: No acute intracranial pathology. Interpreted by: Andrew Kramer MD Preliminary Report By: Andrew Kramer MD Electronically signed By Andrew Kramer MD Dictated Date: 01/17/2023 9:03:48 AM Prelim Date: 01/17/2023 9:06:29 AM Sign Date: 01/17/2023 9:06:29 AM Ordering Provider: RAI PURVIS [facility] ([place]) XR CHEST 2 VIEWSon 3 XR CHEST 2 VIEWS ORIGINAL EXAMINATION: TWO XRAY VIEWS OF THE CHEST TECHNIQUE: Two views COMPARISON: Chest 04/10/2017 HISTORY: ORDERING SYSTEM PROVIDED HISTORY: Reason for Exam: Fall yesterday evening, dizzy, nauseous. Pain; Trauma patient FINDINGS: Support devices: None Cardiomediastinal: The heart is normal in size. Lungs: Hypoventilatory changes with pulmonary vessel crowding. No infiltrates, pulmonary edema, consolidation or a pleural effusion is seen. Pneumothorax: None. Osseous: Interval indeterminate age compression deformity of the approximate L1 vertebral body noted. IMPRESSION: No acute pulmonary disease. Indeterminate age mild compression deformity of the approximate L1 vertebral body. Dedicated lumbar spine x-rays advised. Interpreted by: Andrew Kramer MD Preliminary Report By: Andrew Kramer MD Electronically signed By Andrew Kramer MD Dictated Date: 01/17/2023 9:01:21 AM Prelim Date: 01/17/2023 9:03:44 AM Sign Date: 01/17/2023 9:03:44 AM Ordering Provider: RAI PURVIS [facility] ([place]) XR WRIST MINIMUM 3 VIEWS RIG HTon 01-17-2023 XR WRIST MINIMUM 3 VIEWS RIGHT ORIGINAL EXAMINATION: THREE XRAY VIEWS OF THE RIGHT WRIST01/17/2023 9:04 am TECHNIQUE: Three views of the right wrist COMPARISON: None HISTORY: ORDERING SYSTEM PROVIDED HISTORY: Reason for Exam: pain FINDINGS: No acute fracture or dislocation is identified. Ulnar positive variance noted. Degenerative changes of the 1st CMC joint noted. Soft tissue along the volar and dorsal wrist and dorsal metacarpal bones present. A 2 mm radiopaque foreign body is located medial to the 5th proximal phalanx. IMPRESSION: No acute fracture or dislocation. Ulnar positive variance which may be positional. Soft tissue swelling. Degenerative changes. Interpreted by: Andrew Kramer MD Preliminary Report By: Andrew Kramer MD Electronically signed By Andrew Kramer MD Dictated Date: 01/17/2023 9:06:48 AM Prelim Date: 01/17/2023 9:09:58 AM Sign Date: 01/17/2023 9:09:58 AM Ordering Provider: RAI Molina [facility] ([place]) XR Chest PA and Lateralon IMPRESSION: No acute radiographic abnormality. Shop Lead: YESICA Transcribe Date/Time: Jan 08 2023 8:57A Dictated by : ALEXA ANDERSON MD This examination was interpreted and the report reviewed and electronically signed by: ALEXA ANDERSON MD on Jan 08 2023 9:04AM [facility] DIVISION OF RADIOLOGY * * *Final Report* * * DATE OF EXAM: Jan 08 2023 8:23AM WOX 5291 - XR CHEST 2V FRONTAL/LAT / PROCEDURE REASON: SOB (shortness of breath) * * * * Physician Interpretation * * * * EXAMINATION: CHEST RADIOGRAPH (2 VIEW FRONTAL & LATERAL) CLINICAL HISTORY: SOB (shortness of breath) MQ: XC2_6 EXAM DATE/TIME: 01/08/2023 8:23 AM COMPARISON: Radiograph dated April 14, 2022 RESULT: Lines, tubes, and devices: None. Lungs and pleura: No consolidation. No lung mass. No pleural effusion. No pneumothorax. Cardiomediastinal silhouette: Normal cardiomediastinal silhouette. Bones and soft tissues: Degenerative changes are present within the thoracic spine. DIVISION OF RADIOLOGY Provider, [facility] - 01/08/2023 * * *Final Report* * * DATE OF EXAM: Jan 08 2023 8:23AM WOX 5291 - XR CHEST 2V FRONTAL/LAT / PROCEDURE REASON: SOB (shortness of breath) * * * * Physician Interpretation * * * * EXAMINATION: CHEST RADIOGRAPH (2 VIEW FRONTAL & LATERAL) CLINICAL HISTORY: SOB (shortness of breath) MQ: XC2_6 EXAM DATE/TIME: 01/08/2023 8:23 AM COMPARISON: Radiograph dated April 14, 2022 RESULT: Lines, tubes, and devices: None. Lungs and pleura: No consolidation. No lung mass. No pleural effusion. No pneumothorax. Cardiomediastinal silhouette: Normal cardiomediastinal silhouette. Bones and soft tissues: Degenerative changes are present within the thoracic spine. IMPRESSION IMPRESSION: No acute radiographic abnormality. Shop Lead: [facility] Transcribe Date/Time: Jan 08 2023 8:57A Dictated by : ALEXA ANDERSON MD This examination was interpreted and the report reviewed and electronically signed by: ALEXA ANDERSON MD on Jan 08 2023 9:04AM [facility] Radiology Study observation (narrative) [facility] XR Chest PA and LateralOrder ed By: Ccf Provider on 01-08-2023 [facility] XR CERV OTHER 4V AP/LAT/FLX/ EXTon 11-15-2022 [facility] EMG(NEURO/NI)on 09-07-2022 [facility] Basic metabolic 2000 panelon 06-08-2022 Anion gap [Moles/Vol] 11 mmol/L 9 - 18 mmol/L [facility] Calcium [Mass/Vol] 9.4 mg/dL 8.5 - 10. 2 mg/dL [facility] Chloride [Moles/Vol] 100 mmol/L 97 - 10 5 mmol/L [facility] CO2 [Moles/Vol] 29 mmol/L 22 - 30 mmol/L [facility] Creatinine [Mass/Vol] 0.75 mg/dL 0.58 - 0.96 mg/dL [facility] Estimated Glomerular Filtration Rate 96 mL/min/1.73m >=60 mL/min/1.7 3m [facility] Glucose [Mass/Vol] 131 mg/dL High 74 - 99 mg/dL [facility] Potassium [Moles/Vol] 3.2 mmol/L Low 3.7 - 5.1 mmol/L [facility] Sodium [Moles/Vol] 140 mmol/L 136 - 144 mmol/L [facility] Urea nitrogen [Mass/Vol] 16 mg/dL 7 - 21 mg/dL [facility] UA DIP, URINE (POC)on 2022 BILIRUBIN UA (POCT) Negative Negative [facility] CLARITY UA (POCT) Clear [facility] COLOR UA (POCT) Yellow [facility] GLUCOSE UA (POCT) Negative Negative mg/dL [facility] HEMOGLOBIN/BLOOD UA (POCT) Negative Negative [facility] KETONE UA (POCT) Negative Negative mg/dL [facility] LEUKOCYTES UA (POCT) Trace Abnormal Negative [facility] NITRITE UA (POCT) Negative Negative [facility] PH UA (POCT) 5.5 4.5 - 8.0 [facility] Protein Ql (U) Negative Negative mg/dL [facility] SPECIFIC GRAVITY UA (POCT) >=1.030 1 .005 - 1.030 [facility] UROBILINOGEN UA (POCT) 0.2 E.U./dL Crystal l E.U./dL [facility] XR RIBS/CHEST 3V AP RIB/OBLS /CXR RIGHTon 04-14-2022 [facility] XR Ribs - right Views and Ch est PAon 04-14-2022 IMPRESSION: Right rib cage appears intact. No pneumothorax. Shop Lead[facility] Transcribe Date/Time: Apr 14 2022 10:44A Dictated by : Hong WEEMS MD This examination was interpreted and the report reviewed and electronically signed by: Hong WEEMS MD on Apr 14 2022 10:48AM EST DIVISION OF RADIOLOGY * * *Final Report* * * DATE OF EXAM: Apr 14 2022 10:00AM WOX 5244 - XR RIB/CHST 3V AP RIB/OBL/CHST R / PROCEDURE REASON: Rib pain on right side * * * * Physician Interpretation * * * * EXAM: XR RIB/CHST 3V AP RIB/OBL/CHST R HISTORY: Rib pain on right side. VIEWS: AP and oblique right ribs with PA chest. COMPARISON: No. FINDINGS: Chest: No tubes or lines. Normal cardiomediastinal silhouette. No lung consolidation. No pleural effusion or pneumothorax. Right ribs: No acute displaced rib fracture or focal bone lesion. DIVISION OF RADIOLOGY Provider, [facility] - 04/14/2022 * * *Final Report* * * DATE OF EXAM: Apr 14 2022 10:00AM WOX 5244 - XR RIB/CHST 3V AP RIB/OBL/CHST R / PROCEDURE REASON: Rib pain on right side * * * * Physician Interpretation * * * * EXAM: XR RIB/CHST 3V AP RIB/OBL/CHST R HISTORY: Rib pain on right side. VIEWS: AP and oblique right ribs with PA chest. COMPARISON: No. FINDINGS: Chest: No tubes or lines. Normal cardiomediastinal silhouette. No lung consolidation. No pleural effusion or pneumothorax. Right ribs: No acute displaced rib fracture or focal bone lesion. IMPRESSION IMPRESSION: Right rib cage appears intact. No pneumothorax. Shop Lead: [facility] Transcribe Date/Time: Apr 14 2022 10:44A Dictated by : Hong WEEMS MD This examination was interpreted and the report reviewed and electronically signed by: Hong WEEMS MD on Apr 14 2022 10:48AM EST [facility] Radiology Study observation (narrative) [facility] XR Ribs - right Views and Ch est PAOrdered By: Ccf Provider on 04-14-2022 [facility] No Panel Informationon 08-16 IMPRESSION: Large amount of soft tissue swelling over the ankle. No fracture is seen Shop Lead: YESICA Transcribe Date/Time: Aug 16 2021 5:44P Dictated by : MORIAH BARAKAT DO This examination was interpreted and the report reviewed and electronically signed by: MORIAH BARAKAT DO on Aug 16 2021 5:46PM EST [email or web address] [email or web address] N OF RADIOLOGY Radiology Study observation (narrative) [facility] No Panel InformationOrdered By: Ccf Provider on 08-16-2021 [facility] XR Ankle - left AP and Later al and obliqueon 08-16-2021 * * *Final Report* * * DATE OF EXAM: Aug 16 2021 5:38PM WOX 5298 - XR ANKLE 3V AP/LAT/OBL LT / PROCEDURE REASON: Injury of left ankle, initial encounter * * * * Physician Interpretation * * * * LEFT Ankle and foot HISTORY: 51 years old Clinical information: Injury of left ankle, initial encounter TECHNIQUE: Images: XR FOOT 3V AP/LAT/OBL LT, XR ANKLE 3V AP/LAT/OBL LT Comparison: None. RESULT: Findings: Ankle: Moderate soft tissue swelling over the ankle both medially and laterally No fractures or dislocations are seen. Foot: Moderate size anterior posterior heel spurs No fractures or dislocations are seen. [email or web address]_ USE_DIVISIO N OF RADIOLOGY Provider, [facility] - 08/16/2021 * * *Final Report* * * DATE OF EXAM: Aug 16 2021 5:38PM WOX 5298 - XR ANKLE 3V AP/LAT/OBL LT / PROCEDURE REASON: Injury of left ankle, initial encounter * * * * Physician Interpretation * * * * LEFT Ankle and foot HISTORY: 51 years old Clinical information: Injury of left ankle, initial encounter TECHNIQUE: Images: XR FOOT 3V AP/LAT/OBL LT, XR ANKLE 3V AP/LAT/OBL LT Comparison: None. RESULT: Findings: Ankle: Moderate soft tissue swelling over the ankle both medially and laterally No fractures or dislocations are seen. Foot: Moderate size anterior posterior heel spurs No fractures or dislocations are seen. IMPRESSION IMPRESSION: Large amount of soft tissue swelling over the ankle. No fracture is seen Shop Lead: YESICA Transcribe Date/Time: Aug 16 2021 5:44P Dictated by : MORIAH BARAKAT DO This examination was interpreted and the report reviewed and electronically signed by: MORIAH BARAKAT DO on Aug 16 2021 5:46PM [facility] XR Foot - left AP and Latera l and obliqueon 08-16-2021 * * *Final Report* * * DATE OF EXAM: Aug 16 2021 5:38PM WOX 5336 - XR FOOT 3V AP/LAT/OBL LT / PROCEDURE REASON: Injury of left ankle, initial encounter * * * * Physician Interpretation * * * * LEFT Ankle and foot HISTORY: 51 years old Clinical information: Injury of left ankle, initial encounter TECHNIQUE: Images: XR FOOT 3V AP/LAT/OBL LT, XR ANKLE 3V AP/LAT/OBL LT Comparison: None. RESULT: Findings: Ankle: Moderate soft tissue swelling over the ankle both medially and laterally No fractures or dislocations are seen. Foot: Moderate size anterior posterior heel spurs No fractures or dislocations are seen. [id number] [id number]_[email or web address] N OF RADIOLOGY Provider, [facility] - 08/16/2021 * * *Final Report* * * DATE OF EXAM: Aug 16 2021 5:38PM WOX 5336 - XR FOOT 3V AP/LAT/OBL LT / PROCEDURE REASON: Injury of left ankle, initial encounter * * * * Physician Interpretation * * * * LEFT Ankle and foot HISTORY: 51 years old Clinical information: Injury of left ankle, initial encounter TECHNIQUE: Images: XR FOOT 3V AP/LAT/OBL LT, XR ANKLE 3V AP/LAT/OBL LT Comparison: None. RESULT: Findings: Ankle: Moderate soft tissue swelling over the ankle both medially and laterally No fractures or dislocations are seen. Foot: Moderate size anterior posterior heel spurs No fractures or dislocations are seen. IMPRESSION IMPRESSION: Large amount of soft tissue swelling over the ankle. No fracture is seen Shop Lead: YESICA Transcribe Date/Time: Aug 16 2021 5:44P Dictated by : MORIAH BARAKAT DO This examination was interpreted and the report reviewed and electronically signed by: MORIAH BARAKAT DO on Aug 16 2021 5:46PM EST [facility] XR Knee - left 4 Viewson IMPRESSION: No acute osseous abnormality identified. Shop Lead: YESICA Transcribe Date/Time: Jun 14 2021 6:10P Dictated by : SHARLA BUCKLEY MD This examination was interpreted and the report reviewed and electronically signed by: SHARLA BUCKLEY MD on Jun 14 2021 6:11PM EST DIVISION OF RADIOLOGY * * *Final Report* * * DATE OF EXAM: Jun 14 2021 5:59PM WOX 5202 - XR KNEE 4V AP/PA BOTH+LAT/ZEENAT LT / PROCEDURE REASON: Knee injuries, left, initial encounter * * * * Physician Interpretation * * * * Left knee radiographs HISTORY: 50 years old Clinical information: Knee injuries, left, initial encounter pt fell on saturday injuring left knee TECHNIQUE: Images: XR KNEE 4V AP/PA BOTH+LAT/ZEENAT LT Comparison: None. RESULT: Findings: Joint spaces are maintained. No fracture or dislocation. No soft tissue abnormality identified. DIVISION OF RADIOLOGY Provider, [facility] - 06/14/2021 * * *Final Report* * * DATE OF EXAM: Jun 14 2021 5:59PM WOX 5202 - XR KNEE 4V AP/PA BOTH+LAT/ZEENAT LT / PROCEDURE REASON: Knee injuries, left, initial encounter * * * * Physician Interpretation * * * * Left knee radiographs HISTORY: 50 years old Clinical information: Knee injuries, left, initial encounter pt fell on saturday injuring left knee TECHNIQUE: Images: XR KNEE 4V AP/PA BOTH+LAT/ZEENAT LT Comparison: None. RESULT: Findings: Joint spaces are maintained. No fracture or dislocation. No soft tissue abnormality identified. IMPRESSION IMPRESSION: No acute osseous abnormality identified. [facility] Transcribe Date/Time: Jun 14 2021 6:10P Dictated by : SHARLA BUCKLEY MD This examination was interpreted and the report reviewed and electronically signed by: SHARLA BUCKLEY MD on Jun 14 2021 6:11PM EST [facility] Radiology Study observation (narrative) [facility] XR Knee - left 4 ViewsOrdere d By: [facility] Provider on 06-14-2021 [facility] No Panel Informationon 04-14 Radiology Study observation (narrative) [facility] XR Elbow - left AP and Later al and obliqueon 04-14-2021 IMPRESSION: No Acute Fracture. Shop Lead: YESICA Transcribe Date/Time: Apr 14 2021 4:47P Dictated by : NICKY GARRIDO MD This examination was interpreted and the report reviewed and electronically signed by: NICKY GARRIDO MD on Apr 14 2021 4:49PM [facility] DIVISION OF RADIOLOGY * * *Final Report* * * DATE OF EXAM: Apr 14 2021 4:44PM WOX 5324 - XR ELBOW 3V AP/LAT/OTHER LT / PROCEDURE REASON: Left arm pain * * * * Physician Interpretation * * * * EXAMINATION: XR ELBOW 3V AP/LAT/OTHER LT HISTORY: Fell down stairs today. Pain posterior left elbow and all around the entire left wrist. Left arm pain. TECHNIQUE: XR ELBOW 3V AP/LAT/OTHER LT Laterality: LEFT Number of different views (projections): 3 M: XB_1 COMPARISON: There are no prior relevant examinations available for comparison within the [facility]. RESULT: 3 views of the left elbow show no acute osseous, articular or soft tissue abnormality. Prominent enthesophyte formation of the olecranon process present. Joint spaces are preserved. There is no abnormal joint fluid. DIVISION OF RADIOLOGY Provider, [facility] Harini [facility] - 04/14/2021 * * *Final Report* * * DATE OF EXAM: Apr 14 2021 4:44PM WOX 5324 - XR ELBOW 3V AP/LAT/OTHER LT / PROCEDURE REASON: Left arm pain * * * * Physician Interpretation * * * * EXAMINATION: XR ELBOW 3V AP/LAT/OTHER LT HISTORY: Fell down stairs today. Pain posterior left elbow and all around the entire left wrist. Left arm pain. TECHNIQUE: XR ELBOW 3V AP/LAT/OTHER LT Laterality: LEFT Number of different views (projections): 3 M: XB_1 COMPARISON: There are no prior relevant examinations available for comparison within the [facility]. RESULT: 3 views of the left elbow show no acute osseous, articular or soft tissue abnormality. Prominent enthesophyte formation of the olecranon process present. Joint spaces are preserved. There is no abnormal joint fluid. IMPRESSION IMPRESSION: No Acute Fracture. Shop Lead: [facility] Transcribe Date/Time: Apr 14 2021 4:47P Dictated by : NICKY GARRIDO MD This examination was interpreted and the report reviewed and electronically signed by: NICKY GARIRDO MD on Apr 14 2021 4:49PM [facility] XR Wrist - left 4 Viewson IMPRESSION: No Acute Fracture. Shop Lead: [facility] Transcribe Date/Time: Apr 14 2021 4:49P Dictated by : NICKY GARRIDO MD This examination was interpreted and the report reviewed and electronically signed by: NICKY GARRIDO MD on Apr 14 2021 4:50PM [facility] DIVISION OF RADIOLOGY * * *Final Report* * * DATE OF EXAM: Apr 14 2021 4:44PM WOX 5272 - XR WRIST 4V PA/LAT/OBL/SCAPH LT / PROCEDURE REASON: multiple diagnoses * * * * Physician Interpretation * * * * EXAMINATION: XR WRIST 4V PA/LAT/OBL/SCAPH LT HISTORY: Fell down stairs today. Pain posterior left elbow and all around the entire left wrist. Left arm and wristpain. TECHNIQUE: XR WRIST 4V PA/LAT/OBL/SCAPH LT Laterality: LEFT Number of different views (projections): 4 M: XB_1 COMPARISON: There are no prior studies for comparison. RESULT: 4 views of the left wrist with a navicular view show no acute osseous, articular or soft tissue abnormality. The radiocarpal and intercarpal articulations are intact. DIVISION OF RADIOLOGY Provider, [facility] - 04/14/2021 * * *Final Report* * * DATE OF EXAM: Apr 14 2021 4:44PM WOX 5272 - XR WRIST 4V PA/LAT/OBL/SCAPH LT / PROCEDURE REASON: multiple diagnoses * * * * Physician Interpretation * * * * EXAMINATION: XR WRIST 4V PA/LAT/OBL/SCAPH LT HISTORY: Fell down stairs today. Pain posterior left elbow and all around the entire left wrist. Left arm and wristpain. TECHNIQUE: XR WRIST 4V PA/LAT/OBL/SCAPH LT Laterality: LEFT Number of different views (projections): 4 M: XB_1 COMPARISON: There are no prior studies for comparison. RESULT: 4 views of the left wrist with a navicular view show no acute osseous, articular or soft tissue abnormality. The radiocarpal and intercarpal articulations are intact. IMPRESSION IMPRESSION: No Acute Fracture. Shop Lead: [facility] Transcribe Date/Time: Apr 14 2021 4:49P Dictated by : NICKY GARRIDO MD This examination was interpreted and the report reviewed and electronically signed by: NICKY GARRIDO MD on Apr 14 2021 4:50PM EST [facility] XR Wrist - left 4 ViewsOrder ed By: [facility] Provider on 04-14-2021 [facility] Vital Signs Date Time Vital Sign Value Performing Clinician Facility 09-14-2024 07:49-0400 Body height 160.[address] Julita Collins MD Work Phone: [facility] 09-14-2024 07:49-0400 Body mass index (BMI) [Ratio] 32.8 kg/m2 Dr. Julita Collins MD Work Phone: [facility] 09-14-2024 07:49-0400 Body weight 83.[address] Julita Collins MD Work Phone: [facility] 09-14-2024 07:49-0400 Diastolic blood pressure 96 mm[Hg] Dr. Julita Collins MD Work Phone: [facility] 09-14-2024 07:49-0400 Heart rate 63 /min Dr. Julita Collins MD Work Phone: [facility] 09-14-2024 07:49-0400 SaO2% (BldA) [Mass fraction] 94 % Dr. Julita Collins MD Work Phone: [facility] 09-14-2024 07:49-0400 Systolic blood pressure 181 mm[Hg] Dr. Julita Collins MD Work Phone: [facility] 08-17-2024 08:24-0400 Body temperature 97.7 [degF] Dr. Julita Collins MD Work Phone: 2(923)530-427814 [place] [address] 08-17-2024 08:24-0400 Body weight 84.[address] Julita Collins MD Work Phone: 9(727)033-851014 [place] [address] 08-17-2024 08:24-0400 Diastolic blood pressure 91 mm[Hg] Dr. Julita Collins MD Work Phone: 3(162)942-283014 [place] [address] 08-17-2024 08:24-0400 Heart rate 55 /min Dr. Julita Collins MD Work Phone: 7(620)078-050214 [place] [address] 08-17-2024 08:24-0400 Respiratory rate 18 /min Dr. Julita Collins MD Work Phone: 2(683)785-986414 [place] [address] 08-17-2024 08:24-0400 SaO2% (BldA) [Mass fraction] 95 % Dr. Julita Collins MD Work Phone: 9(453)008-958514 [place] [address] 08-17-2024 08:24-0400 Systolic blood pressure 177 mm[Hg] Dr. Julita Collins MD Work Phone: 9(206)393-603014 [place] [address] 07-20-2024 10:49-0400 Diastolic blood pressure 96 mm[Hg] Dr. Julita Collins MD Work Phone: 7(651)378-173714 [place] [address] 07-20-2024 10:49-0400 Systolic blood pressure 170 mm[Hg] Dr. Julita Collins MD Work Phone: 9(853)588-491514 [place] [address] 07-20-2024 10:14-0400 Body height 160.[address] Julita Collins MD Work Phone: 1(081)949-570214 [place] [address] 07-20-2024 10:14-0400 Body mass index (BMI) [Ratio] 33.1 kg/m2 Dr. Julita Collins MD Work Phone: 3(079)460-330214 [place] [address] 07-20-2024 10:14-0400 Body weight 84.[address] Julita Collins MD Work Phone: 8(349)099-974314 [place] [address] 07-20-2024 10:14-0400 Heart rate 82 /min Dr. Julita Collins MD Work Phone: 8(190)100-820765 [place] [address] 07-20-2024 10:14-0400 Respiratory rate 16 /min Dr. Julita Collins MD Work Phone: 0(499)883-687414 [place] [address] 07-20-2024 10:14-0400 SaO2% (BldA) [Mass fraction] 96 % Dr. Julita Collins MD Work Phone: 0(190)432-266014 [place] [address] 07-14-2024 09:41-0400 Diastolic blood pressure 83 mm[Hg] Julita Collins MD Work Phone: 5(092)050-702074 [place] [address] 07-14-2024 09:41-0400 Heart rate 72 /min Julita Collins MD Work Phone: 1(817)047-198531 [place] [address] 07-14-2024 09:41-0400 Systolic blood pressure 129 mm[Hg] Julita Collins MD Work Phone: 3(014)646-084031 [place] [address] 07-14-2024 08:47-0400 Body mass index (BMI) [Ratio] 32.7 kg/m2 Julita Collins MD Work Phone: 7(119)079-394331 [place] [address] 07-14-2024 08:47-0400 Body weight 85.82 kg Julita Collins MD Work Phone: 7(967)407-264431 [place] [address] 07-14-2024 08:47-0400 SaO2% (BldA) [Mass fraction] 97 % Julita Collins MD Work Phone: 2(058)485-125974 [place] [address] 04-15-2024 08:58-0500 Body height 160.[address] Julita Collins MD Work Phone: 7(461)412-475814 [place] [address] 04-15-2024 08:58-0500 Body mass index (BMI) [Ratio] 33.7 kg/m2 Dr. Julita Collins MD Work Phone: 3(748)221-256714 [place] [address] 04-15-2024 08:58-0500 Body weight 86.[address] Julita Collins MD Work Phone: 1(106)873-434114 [place] [address] 04-15-2024 08:58-0500 Diastolic blood pressure 82 mm[Hg] Dr. Julita Collins MD Work Phone: [facility] 04-15-2024 08:58-0500 Heart rate 78 /min Dr. Julita Collins MD Work Phone: [facility] 04-15-2024 08:58-0500 Respiratory rate 18 /min Dr. Julita Collins MD Work Phone: [facility] 04-15-2024 08:58-0500 SaO2% (BldA) [Mass fraction] 93 % Dr. Julita Collins MD Work Phone: [facility] 04-15-2024 08:58-0500 Systolic blood pressure 165 mm[Hg] Dr. Julita Collins MD Work Phone: [facility] 10-22-2023 08:04-0400 Diastolic blood pressure 89 mm[Hg] Roberta Hales ACCOUNT ADVISOR.STUDIO ENGINEER Work Phone: [facility] 10-22-2023 08:04-0400 Heart rate 63 /min Roberta Pritchard ACCOUNT ADVISOR.STUDIO ENGINEER Work Phone: [facility] 10-22-2023 08:04-0400 Systolic blood pressure 174 mm[Hg] Roberta Pritchard ACCOUNT ADVISOR.STUDIO ENGINEER Work Phone: [facility] 10-22-2023 07:53-0400 Body mass index (BMI) [Ratio] 33.7 kg/m2 Robertadarwin Hales ACCOUNT ADVISOR.STUDIO ENGINEER Work Phone: [facility] 10-22-2023 07:53-0400 Body weight 88.45 kg Roberta Hales ACCOUNT ADVISOR.STUDIO ENGINEER Work Phone: [facility] 10-22-2023 07:53-0400 Respiratory rate 16 /min Roberta Pritchard ACCOUNT ADVISOR.STUDIO ENGINEER Work Phone: [facility] 08-29-2023 08:23-0400 Diastolic blood pressure 100 mm[Hg] Eliana Curtis APRN.FIRE TENDER Work Phone: [facility] Comment on above: karen bp average 08-29-2023 08:23-0400 Systolic blood pressure 180 mm[Hg] Eliana Older ACCOUNT ADVISOR.FIRE TENDER Work Phone: [facility] Comment on above: karen bp average 08-29-2023 07:51-0400 Body mass index (BMI) [Ratio] 34.05 kg/m2 Eliana Older ACCOUNT ADVISOR.FIRE TENDER Work Phone: [facility] 08-29-2023 07:51-0400 Body weight 89.36 kg Eliana Older ACCOUNT ADVISOR.FIRE TENDER Work Phone: [facility] 08-29-2023 07:51-0400 Heart rate 80 /min Eliana Older ACCOUNT ADVISOR.FIRE TENDER Work Phone: [facility] 08-29-2023 07:51-0400 Respiratory rate 16 /min Eliana Older ACCOUNT ADVISOR.FIRE TENDER Work Phone: [facility] 08-29-2023 07:51-0400 SaO2% (BldA) [Mass fraction] 97 % Eliana Older ACCOUNT ADVISOR.FIRE TENDER Work Phone: [facility] 07-18-2023 23:09-0400 Body temperature 97.9 [degF] [facility] 07-18-2023 23:09-0400 Diastolic blood pressure 88 mm[Hg] [facility] 07-18-2023 23:09-0400 Heart rate 84 /min [facility] 07-18-2023 23:09-0400 Respiratory rate 16 /min [facility] 07-18-2023 23:09-0400 SaO2% (BldA) [Mass fraction] 99 % [facility] 07-18-2023 23:09-0400 Systolic blood pressure 181 mm[Hg] [facility] 07-18-2023 21:41-0400 Body mass index (BMI) [Ratio] 36.3 kg/m2 [facility] 07-18-2023 21:41-0400 Body weight 93.12 kg [facility] 07-18-2023 21:40-0400 Body height 160.02 cm [facility] 07-16-2023 08:43-0400 Diastolic blood pressure 83 mm[Hg] Roberta Pritchard ACCOUNT ADVISOR.STUDIO ENGINEER Work Phone: [facility] 07-16-2023 08:43-0400 Heart rate 80 /min Roberta Pritchard ACCOUNT ADVISOR.STUDIO ENGINEER Work Phone: [facility] 07-16-2023 08:43-0400 Systolic blood pressure 151 mm[Hg] Roberta Pritchard ACCOUNT ADVISOR.STUDIO ENGINEER Work Phone: [facility] 07-16-2023 08:37-0400 Body weight 91.17 kg Roberta Pritchard ACCOUNT ADVISOR.STUDIO ENGINEER Work Phone: [facility] 07-16-2023 08:37-0400 Respiratory rate 16 /min Roberta Pritchard ACCOUNT ADVISOR.STUDIO ENGINEER Work Phone: [facility] 07-02-2023 08:11-0400 Body height 162 cm Eliana Older ACCOUNT ADVISOR.FIRE TENDER Work Phone: [facility] 07-02-2023 08:11-0400 Body weight 91.17 kg Eliana Older ACCOUNT ADVISOR.FIRE TENDER Work Phone: [facility] 07-02-2023 08:11-0400 Diastolic blood pressure 80 mm[Hg] Eliana Older ACCOUNT ADVISOR.FIRE TENDER Work Phone: [facility] 07-02-2023 08:11-0400 Heart rate 78 /min Eliana Older ACCOUNT ADVISOR.FIRE TENDER Work Phone: [facility] 07-02-2023 08:11-0400 Respiratory rate 16 /min Eliana Older ACCOUNT ADVISOR.FIRE TENDER Work Phone: [facility] 07-02-2023 08:11-0400 Systolic blood pressure 124 mm[Hg] Eliana Older ACCOUNT ADVISOR.FIRE TENDER Work Phone: [facility] 06-17-2023 08:15-0400 Body height 160 cm Lavonne Seay PA-C Work Phone: [facility] 06-17-2023 08:15-0400 Body temperature 97.3 [degF] Lavonne Seay PA-C Work Phone: [facility] 06-17-2023 08:15-0400 Body weight 92.08 kg Lavonne Denbow PA-C Work Phone: [facility] 06-17-2023 08:15-0400 Diastolic blood pressure 72 mm[Hg] Lavonne Denbow PA-C Work Phone: [facility] 06-17-2023 08:15-0400 Heart rate 70 /min Lavonne Denbow PA-C Work Phone: [facility] 06-17-2023 08:15-0400 Respiratory rate 12 /min Lavonne Denbow PA-C Work Phone: [facility] 06-17-2023 08:15-0400 SaO2% (BldA) [Mass fraction] 97 % Lavonne Denbow PA-C Work Phone: [facility] 06-17-2023 08:15-0400 Systolic blood pressure 130 mm[Hg] Lavonne Denbow PA-C Work Phone: [facility] 05-20-2023 16:55-0500 Body height 160 cm Lavonne Denbow PA-C Work Phone: [facility] 05-20-2023 16:55-0500 Body weight 89.81 kg Lavonne Denbow PA-C Work Phone: [facility] 05-20-2023 16:55-0500 Diastolic blood pressure 60 mm[Hg] Lavonne Denbow PA-C Work Phone: [facility] 05-20-2023 16:55-0500 Heart rate 97 /min Lavonne Denbow PA-C Work Phone: [facility] 05-20-2023 16:55-0500 Respiratory rate 12 /min Lavonne Denbow PA-C Work Phone: [facility] 05-20-2023 16:55-0500 SaO2% (BldA) [Mass fraction] 99 % Lavonne Denbow PA-C Work Phone: [facility] 05-20-2023 16:55-0500 Systolic blood pressure 124 mm[Hg] Lavonne Denbow PA-C Work Phone: [facility] 03-30-2023 08:49-0500 Diastolic blood pressure 69 mm[Hg] [facility] 03-30-2023 08:49-0500 Heart rate 72 /min [facility] 03-30-2023 08:49-0500 Respiratory rate 15 /min [facility] 03-30-2023 08:49-0500 SaO2% (BldA) [Mass fraction] 98 % [facility] 03-30-2023 08:49-0500 Systolic blood pressure 124 mm[Hg] [facility] 03-30-2023 03:39-0500 Body temperature 96 [degF] [facility] 03-30-2023 03:35-0500 Body height 160.02 cm [facility] 03-30-2023 03:35-0500 Body mass index (BMI) [Ratio] 35.6 kg/m2 [facility] 03-30-2023 03:35-0500 Body weight 91.4 kg [facility] 03-01-2023 08:12-0500 Body height 160 cm Lucia Curtis MD Work Phone: [facility] 03-01-2023 08:12-0500 Body temperature 96.91 [degF] Lucia Curtis MD Work Phone: [facility] 03-01-2023 08:12-0500 Body weight 93.71 kg Lucia Curtis MD Work Phone: [facility] 03-01-2023 08:12-0500 Diastolic blood pressure 84 mm[Hg] Lucia Curtis MD Work Phone: [facility] 03-01-2023 08:12-0500 Heart rate 81 /min Lucia Curtis MD Work Phone: [facility] 03-01-2023 08:12-0500 SaO2% (BldA) [Mass fraction] 95 % Lucia Curtis MD Work Phone: [facility] 03-01-2023 08:12-0500 Systolic blood pressure 130 mm[Hg] Lucia Curtis MD Work Phone: [facility] 02-02-2023 17:15-0400 Diastolic Blood Pressure Non-Invasive 98 1 ISABELLA PEREZ MD [facility] 02-02-2023 17:15-0400 Systolic Blood Pressure Non-Invasive 182 1 ISABELLA PEREZ MD [facility] 02-02-2023 16:40-0400 Diastolic Blood Pressure Non-Invasive 95 1 ISABELLA PEREZ MD [facility] 02-02-2023 16:40-0400 Heart rate 71 /min ISABELLA PEREZ MD [facility] 02-02-2023 16:40-0400 Respiratory rate 20 /min ISABELLA PEREZ MD [facility] 02-02-2023 16:40-0400 Systolic Blood Pressure Non-Invasive 172 1 ISABELLA PEREZ MD [facility] 02-02-2023 12:50-0400 Blood Pressure Cuff Size ISABELLA PEREZ MD [facility] 02-02-2023 12:50-0400 Blood Pressure Location ISABELLA PEREZ MD [facility] 02-02-2023 12:50-0400 Blood Pressure Method ISABELLA PEREZ MD [facility] 02-02-2023 12:50-0400 Body height 160 cm ISABELLA PEREZ MD [facility] 02-02-2023 12:50-0400 Body temperature 98.24 [degF] ISABELLA PEREZ MD [facility] 02-02-2023 12:50-0400 Body weight 77.3 kg ISABELLA PEREZ MD [facility] 02-02-2023 12:50-0400 Diastolic Blood Pressure Non-Invasive 97 1 ISABELLA PEREZ MD [facility] 02-02-2023 12:50-0400 Heart rate 74 /min ISABELLA PEREZ MD [facility] 02-02-2023 12:50-0400 Respiratory rate 20 /min ISABELLA PEREZ MD [facility] 02-02-2023 12:50-0400 Systolic Blood Pressure Non-Invasive 165 1 ISABELLA PEREZ MD [facility] 01-23-2023 08:15-0400 Body height 160 cm Lavonne Denbow PA-C Work Phone: [facility] 01-23-2023 08:15-0400 Body temperature 98.01 [degF] Lavonne Denbow PA-C Work Phone: [facility] 01-23-2023 08:15-0400 Body weight 92.99 kg Lavonne Denbow PA-C Work Phone: [facility] 01-23-2023 08:15-0400 Diastolic blood pressure 72 mm[Hg] Lavonne Denbow PA-C Work Phone: [facility] 01-23-2023 08:15-0400 Heart rate 65 /min Lavonne Denbow PA-C Work Phone: [facility] 01-23-2023 08:15-0400 Respiratory rate 12 /min Lavonne Denbow PA-C Work Phone: [facility] 01-23-2023 08:15-0400 SaO2% (BldA) [Mass fraction] 97 % Lavonne Denbow PA-C Work Phone: [facility] 01-23-2023 08:15-0400 Systolic blood pressure 128 mm[Hg] Lavonne Denbow PA-C Work Phone: [facility] 01-22-2023 09:26-0400 Heart rate 74 /min RAI PURVIS MD [facility] 01-22-2023 09:26-0400 Respiratory rate 16 /min RAI PURVIS MD [facility] 01-22-2023 08:17-0400 Blood Pressure Location RAI PURVIS MD [facility] 01-22-2023 08:17-0400 Body height 160 cm RAI PURVIS MD [facility] 01-22-2023 08:17-0400 Body temperature 97.7 [degF] RAI PURVIS MD [facility] 01-22-2023 08:17-0400 Body weight 77.5 kg RAI PURVIS MD [facility] 01-22-2023 08:17-0400 Diastolic Blood Pressure Non-Invasive 121 1 RAI PURVIS MD [facility] 01-22-2023 08:17-0400 Heart rate 75 /min RAI PURVIS MD [facility] 01-22-2023 08:17-0400 Respiratory rate 16 /min RAI PURVIS MD [facility] 01-22-2023 08:17-0400 Systolic Blood Pressure Non-Invasive 181 1 RAI PURVIS MD [facility] 01-17-2023 08:18-0400 Body height 160 cm RAI PURVIS MD [facility] 01-17-2023 08:18-0400 Body temperature 97.7 [degF] RAI PURVIS MD [facility] 01-17-2023 08:18-0400 Body weight 77.3 kg RAI PURVIS MD [facility] 01-17-2023 08:18-0400 Diastolic Blood Pressure Non-Invasive 103 1 RAI PURVIS MD [facility] 01-17-2023 08:18-0400 Heart rate 66 /min RAI PURVIS MD [facility] 01-17-2023 08:18-0400 Respiratory rate 18 /min RAI PURVIS MD [facility] 01-17-2023 08:18-0400 Systolic Blood Pressure Non-Invasive 170 1 RAI PURVIS MD [facility] 01-15-2023 09:47-0400 Body temperature 97.59 [degF] Lavonne Denbow PA-C Work Phone: [facility] 01-15-2023 09:47-0400 Body weight 94.35 kg Lavonne Denbow PA-C Work Phone: [facility] 01-15-2023 09:47-0400 Diastolic blood pressure 80 mm[Hg] Lavonne Denbow PA-C Work Phone: [facility] 01-15-2023 09:47-0400 Heart rate 80 /min Lavonne Denbow PA-C Work Phone: [facility] 01-15-2023 09:47-0400 Respiratory rate 16 /min Lavonne Denbow PA-C Work Phone: [facility] 01-15-2023 09:47-0400 Systolic blood pressure 130 mm[Hg] Lavonne Denbow PA-C Work Phone: [facility] 12-31-2022 13:11-0400 Body height 160 cm Lavonne Denbow PA-C Work Phone: [facility] 12-31-2022 13:11-0400 Body temperature 97.81 [degF] Lavonne Denbow PA-C Work Phone: [facility] 12-31-2022 13:11-0400 Body weight 92.99 kg Lavonne Denbow PA-C Work Phone: [facility] 12-31-2022 13:11-0400 Diastolic blood pressure 80 mm[Hg] Lavonne Denbow PA-C Work Phone: [facility] 12-31-2022 13:11-0400 Heart rate 90 /min Lavonne Denbow PA-C Work Phone: [facility] 12-31-2022 13:11-0400 Respiratory rate 12 /min Lavonne Denbow PA-C Work Phone: [facility] 12-31-2022 13:11-0400 SaO2% (BldA) [Mass fraction] 98 % Lavonne Denbow PA-C Work Phone: [facility] 12-31-2022 13:11-0400 Systolic blood pressure 142 mm[Hg] Lavonne Denbow PA-C Work Phone: [facility] 12-05-2022 10:51-0400 Body height 160 cm Lavonne Denbow PA-C Work Phone: [facility] 12-05-2022 10:51-0400 Body temperature 97.59 [degF] Lavonne Denbow PA-C Work Phone: [facility] 12-05-2022 10:51-0400 Body weight 92.08 kg Lavonne Denbow PA-C Work Phone: [facility] 12-05-2022 10:51-0400 Diastolic blood pressure 70 mm[Hg] Lavonne Denbow PA-C Work Phone: [facility] 12-05-2022 10:51-0400 Heart rate 79 /min Lavonne Denbow PA-C Work Phone: [facility] 12-05-2022 10:51-0400 Respiratory rate 12 /min Lavonne Denbow PA-C Work Phone: [facility] 12-05-2022 10:51-0400 SaO2% (BldA) [Mass fraction] 97 % Lavonne Denbow PA-C Work Phone: [facility] 12-05-2022 10:51-0400 Systolic blood pressure 132 mm[Hg] Lavonne Denbow PA-C Work Phone: [facility] 10-26-2022 07:11-0400 Body height 160.02 cm [facility] 10-26-2022 07:11-0400 Body mass index (BMI) [Ratio] 36.5 kg/m2 [facility] 10-26-2022 07:11-0400 Body temperature 97.1 [degF] [facility] 10-26-2022 07:11-0400 Body weight 93.5 kg [facility] 10-26-2022 07:11-0400 Diastolic blood pressure 98 mm[Hg] [facility] 10-26-2022 07:11-0400 Heart rate 80 /min [facility] 10-26-2022 07:11-0400 Respiratory rate 14 /min [facility] 10-26-2022 07:11-0400 SaO2% (BldA) [Mass fraction] 98 % [facility] 10-26-2022 07:11-0400 Systolic blood pressure 188 mm[Hg] [facility] 09-20-2022 07:22-0400 Body weight 93.44 kg Eliana Older ACCOUNT ADVISOR.FIRE TENDER Work Phone: [facility] 09-20-2022 07:22-0400 Diastolic blood pressure 96 mm[Hg] Eliana Older ACCOUNT ADVISOR.FIRE TENDER Work Phone: [facility] 09-20-2022 07:22-0400 Heart rate 68 /min Eliana Older ACCOUNT ADVISOR.FIRE TENDER Work Phone: [facility] 09-20-2022 07:22-0400 Respiratory rate 16 /min Eliana Older ACCOUNT ADVISOR.FIRE TENDER Work Phone: [facility] 09-20-2022 07:22-0400 Systolic blood pressure 142 mm[Hg] Eliana Older ACCOUNT ADVISOR.FIRE TENDER Work Phone: [facility] 09-10-2022 10:45-0400 Body height 160 cm Julita Collins MD Work Phone: [facility] 09-10-2022 10:45-0400 Body temperature 97.3 [degF] Julita Collins MD Work Phone: [facility] 09-10-2022 10:45-0400 Body weight 89.81 kg Julita Collins MD Work Phone: [facility] 09-10-2022 10:45-0400 Diastolic blood pressure 80 mm[Hg] Julita Collins MD Work Phone: [facility] 09-10-2022 10:45-0400 Heart rate 64 /min Julita Collins MD Work Phone: [facility] 09-10-2022 10:45-0400 Respiratory rate 12 /min Julita Collins MD Work Phone: [facility] 09-10-2022 10:45-0400 SaO2% (BldA) [Mass fraction] 97 % Julita Collins MD Work Phone: [facility] 09-10-2022 10:45-0400 Systolic blood pressure 126 mm[Hg] Julita Collins MD Work Phone: [facility] 09-06-2022 08:33-0400 Body weight 91.63 kg Eliana Older ACCOUNT ADVISOR.FIRE TENDER Work Phone: [facility] 09-06-2022 08:33-0400 Diastolic blood pressure 80 mm[Hg] Eliana Older ACCOUNT ADVISOR.FIRE TENDER Work Phone: [facility] 09-06-2022 08:33-0400 Heart rate 80 /min Eliana Older ACCOUNT ADVISOR.FIRE TENDER Work Phone: [facility] 09-06-2022 08:33-0400 Respiratory rate 16 /min Eliana Older ACCOUNT ADVISOR.FIRE TENDER Work Phone: [facility] 09-06-2022 08:33-0400 Systolic blood pressure 128 mm[Hg] Eliana Older ACCOUNT ADVISOR.FIRE TENDER Work Phone: [facility] 08-13-2022 06:57-0400 Body height 160.02 cm [facility] 08-13-2022 06:57-0400 Body mass index (BMI) [Ratio] 35.6 kg/m2 [facility] 08-13-2022 06:57-0400 Body temperature 97.2 [degF] [facility] 08-13-2022 06:57-0400 Body weight 91.3 kg [facility] 08-13-2022 06:57-0400 Diastolic blood pressure 84 mm[Hg] [facility] 08-13-2022 06:57-0400 Heart rate 73 /min [facility] 08-13-2022 06:57-0400 Respiratory rate 16 /min [facility] 08-13-2022 06:57-0400 SaO2% (BldA) [Mass fraction] 98 % [facility] 08-13-2022 06:57-0400 Systolic blood pressure 164 mm[Hg] [facility] 06-08-2022 12:52-0500 Body height 160 cm Julita Collins MD Work Phone: [facility] 06-08-2022 12:52-0500 Body temperature 98.29 [degF] Julita Collins MD Work Phone: [facility] 06-08-2022 12:52-0500 Body weight 89.36 kg Julita Collins MD Work Phone: [facility] 06-08-2022 12:52-0500 Diastolic blood pressure 68 mm[Hg] Julita Collins MD Work Phone: [facility] 06-08-2022 12:52-0500 Heart rate 77 /min Julita Collins MD Work Phone: [facility] 06-08-2022 12:52-0500 Respiratory rate 14 /min Julita Collins MD Work Phone: [facility] 06-08-2022 12:52-0500 SaO2% (BldA) [Mass fraction] 95 % Julita Collins MD Work Phone: [facility] 06-08-2022 12:52-0500 Systolic blood pressure 128 mm[Hg] Julita Collins MD Work Phone: [facility] 05-30-2022 17:48-0500 Body temperature 97.9 [degF] Eliana Older ACCOUNT ADVISOR.FIRE TENDER Work Phone: [facility] 05-30-2022 17:48-0500 Body weight 89.36 kg Eliana Older ACCOUNT ADVISOR.FIRE TENDER Work Phone: [facility] 05-30-2022 17:48-0500 Diastolic blood pressure 90 mm[Hg] Eliana Older ACCOUNT ADVISOR.FIRE TENDER Work Phone: [facility] 05-30-2022 17:48-0500 Heart rate 90 /min Eliana Older ACCOUNT ADVISOR.FIRE TENDER Work Phone: [facility] 05-30-2022 17:48-0500 Respiratory rate 16 /min Eliana Older ACCOUNT ADVISOR.FIRE TENDER Work Phone: [facility] 05-30-2022 17:48-0500 SaO2% (BldA) [Mass fraction] 97 % Eliana Older ACCOUNT ADVISOR.FIRE TENDER Work Phone: [facility] 05-30-2022 17:48-0500 Systolic blood pressure 132 mm[Hg] Eliana Older ACCOUNT ADVISOR.FIRE TENDER Work Phone: [facility] 05-16-2022 15:53-0500 Body weight 89.81 kg Eliana Older ACCOUNT ADVISOR.FIRE TENDER Work Phone: [facility] 05-16-2022 15:53-0500 Diastolic blood pressure 80 mm[Hg] Eliana Older ACCOUNT ADVISOR.FIRE TENDER Work Phone: [facility] 05-16-2022 15:53-0500 Heart rate 85 /min Eliana Older ACCOUNT ADVISOR.FIRE TENDER Work Phone: [facility] 05-16-2022 15:53-0500 Respiratory rate 16 /min Eliana Older ACCOUNT ADVISOR.FIRE TENDER Work Phone: [facility] 05-16-2022 15:53-0500 SaO2% (BldA) [Mass fraction] 98 % Eliana Older ACCOUNT ADVISOR.FIRE TENDER Work Phone: [facility] 05-16-2022 15:53-0500 Systolic blood pressure 132 mm[Hg] Eliana Older ACCOUNT ADVISOR.FIRE TENDER Work Phone: [facility] 05-04-2022 17:19-0500 Body temperature 97.81 [degF] Krislyn Aberegg PA Work Phone: [facility] 05-04-2022 17:19-0500 Body weight 89.36 kg Krislyn Aberegg PA Work Phone: [facility] 05-04-2022 17:19-0500 Diastolic blood pressure 82 mm[Hg] Krislyn Aberegg PA Work Phone: [facility] 05-04-2022 17:19-0500 Heart rate 74 /min Krislyn Aberegg PA Work Phone: [facility] 05-04-2022 17:19-0500 Respiratory rate 18 /min Krislyn Aberegg PA Work Phone: [facility] 05-04-2022 17:19-0500 SaO2% (BldA) [Mass fraction] 97 % Krislyn Aberegg PA Work Phone: [facility] 05-04-2022 17:19-0500 Systolic blood pressure 138 mm[Hg] Krislyn Aberegg PA Work Phone: [facility] 04-18-2022 16:24-0500 Body height 160 cm Julita Collins MD Work Phone: [facility] 04-18-2022 16:24-0500 Body temperature 98.29 [degF] Julita Collins MD Work Phone: [facility] 04-18-2022 16:24-0500 Body weight 88.45 kg Julita Collins MD Work Phone: [facility] 04-18-2022 16:24-0500 Diastolic blood pressure 72 mm[Hg] Julita Collins MD Work Phone: [facility] 04-18-2022 16:24-0500 Heart rate 82 /min Julita Collins MD Work Phone: [facility] 04-18-2022 16:24-0500 Respiratory rate 12 /min Julita Collins MD Work Phone: [facility] 04-18-2022 16:24-0500 SaO2% (BldA) [Mass fraction] 97 % Julita Collins MD Work Phone: [facility] 04-18-2022 16:24-0500 Systolic blood pressure 136 mm[Hg] Julita Collins MD Work Phone: [facility] 04-14-2022 09:30-0500 Body weight 88.45 kg Donna Conroe ACCOUNT ADVISOR.FIRE TENDER Work Phone: [facility] 04-14-2022 09:30-0500 Diastolic blood pressure 98 mm[Hg] Donna Conroe ACCOUNT ADVISOR.FIRE TENDER Work Phone: [facility] 04-14-2022 09:30-0500 Heart rate 85 /min Donna Conroe ACCOUNT ADVISOR.FIRE TENDER Work Phone: [facility] 04-14-2022 09:30-0500 Respiratory rate 16 /min Donna Conroe ACCOUNT ADVISOR.FIRE TENDER Work Phone: [facility] 04-14-2022 09:30-0500 SaO2% (BldA) [Mass fraction] 98 % Donna Conroe ACCOUNT ADVISOR.FIRE TENDER Work Phone: [facility] 04-14-2022 09:30-0500 Systolic blood pressure 142 mm[Hg] Donna Conroe ACCOUNT ADVISOR.FIRE TENDER Work Phone: [facility] 02-24-2022 08:46-0500 Body height 160.02 cm [facility] Work Phone: 02-24-2022 08:46-0500 Body mass index (BMI) [Ratio] 31.8 kg/m2 [facility] Work Phone: 02-24-2022 08:46-0500 Body temperature 97.2 [degF] [facility] Work Phone: 02-24-2022 08:46-0500 Body weight 81.64 kg [facility] Work Phone: 02-24-2022 08:46-0500 Diastolic blood pressure 90 mm[Hg] [facility] Work Phone: 02-24-2022 08:46-0500 Heart rate 89 /min [facility] Work Phone: 02-24-2022 08:46-0500 Respiratory rate 18 /min [facility] Work Phone: 02-24-2022 08:46-0500 SaO2% (BldA) [Mass fraction] 100 % [facility] Work Phone: 02-24-2022 08:46-0500 Systolic blood pressure 174 mm[Hg] [facility] Work Phone: 12-27-2021 16:49-0400 Body height 160 cm Julita Collins MD Work Phone: [facility] 12-27-2021 16:49-0400 Body temperature 97.59 [degF] Julita Collins MD Work Phone: [facility] 12-27-2021 16:49-0400 Body weight 87.09 kg Julita Collins MD Work Phone: [facility] 12-27-2021 16:49-0400 Diastolic blood pressure 80 mm[Hg] Julita Collins MD Work Phone: [facility] 12-27-2021 16:49-0400 Heart rate 86 /min Julita Collins MD Work Phone: [facility] 12-27-2021 16:49-0400 Respiratory rate 12 /min Julita Collins MD Work Phone: [facility] 12-27-2021 16:49-0400 SaO2% (BldA) [Mass fraction] 97 % Julita Collins MD Work Phone: [facility] 12-27-2021 16:49-0400 Systolic blood pressure 134 mm[Hg] Julita Collins MD Work Phone: [facility] 12-06-2021 21:58-0400 Respiratory rate 16 /min [facility] Work Phone: 12-06-2021 19:33-0400 Body height 160.02 cm [facility] Work Phone: 12-06-2021 19:33-0400 Body mass index (BMI) [Ratio] 31.8 kg/m2 [facility] Work Phone: 12-06-2021 19:33-0400 Body temperature 98.9 [degF] [facility] Work Phone: 12-06-2021 19:33-0400 Body weight 81.64 kg [facility] Work Phone: 12-06-2021 19:33-0400 Diastolic blood pressure 112 mm[Hg] [facility] Work Phone: 12-06-2021 19:33-0400 Heart rate 99 /min [facility] Work Phone: 12-06-2021 19:33-0400 SaO2% (BldA) [Mass fraction] 99 % [facility] Work Phone: 12-06-2021 19:33-0400 Systolic blood pressure 180 mm[Hg] [facility] Work Phone: 10-12-2021 16:49-0400 Diastolic blood pressure 83 mm[Hg] Brandon Jimenez MD Work Phone: [facility] 10-12-2021 16:49-0400 Heart rate 95 /min Brandon Jimenez MD Work Phone: [facility] 10-12-2021 16:49-0400 Systolic blood pressure 138 mm[Hg] Brandon Jimenez MD Work Phone: [facility] 10-12-2021 16:47-0400 Body temperature 97.3 [degF] Brandon Jimenez MD Work Phone: [facility] 10-12-2021 16:47-0400 Body weight 87.09 kg Brandon Jimenez MD Work Phone: [facility] 10-12-2021 16:47-0400 Respiratory rate 18 /min Brandon Jimenez MD Work Phone: [facility] 10-10-2021 16:11-0400 Body temperature 98.2 [degF] Lashay Sheets ACCOUNT ADVISOR.FIRE TENDER Work Phone: [facility] 10-10-2021 16:11-0400 Body weight 87.36 kg Lashay Sheets ACCOUNT ADVISOR.FIRE TENDER Work Phone: [facility] 10-10-2021 16:11-0400 Diastolic blood pressure 84 mm[Hg] Lashay Sheets ACCOUNT ADVISOR.FIRE TENDER Work Phone: [facility] 10-10-2021 16:11-0400 Heart rate 89 /min Lashay Sheets ACCOUNT ADVISOR.FIRE TENDER Work Phone: [facility] 10-10-2021 16:11-0400 Respiratory rate 18 /min Lashay Sheets ACCOUNT ADVISOR.FIRE TENDER Work Phone: [facility] 10-10-2021 16:11-0400 SaO2% (BldA) [Mass fraction] 98 % Lashay Sheets ACCOUNT ADVISOR.FIRE TENDER Work Phone: [facility] 10-10-2021 16:11-0400 Systolic blood pressure 144 mm[Hg] Lashay Sheets ACCOUNT ADVISOR.FIRE TENDER Work Phone: [facility] 09-28-2021 16:36-0400 Diastolic blood pressure 100 mm[Hg] Brandon Jimenez MD Work Phone: [facility] 09-28-2021 16:36-0400 Heart rate 83 /min Brandon Jimenez MD Work Phone: [facility] 09-28-2021 16:36-0400 Systolic blood pressure 168 mm[Hg] Brandon Jimenez MD Work Phone: [facility] 09-28-2021 16:30-0400 Body temperature 97.39 [degF] Brandon Jimenez MD Work Phone: [facility] 09-28-2021 16:30-0400 Body weight 87.09 kg Brandon Jimenez MD Work Phone: [facility] 09-28-2021 16:30-0400 Respiratory rate 18 /min Brandon Jimenez MD Work Phone: [facility] 09-22-2021 11:37-0400 Body temperature 98.06 [degF] RAI PURVIS MD [facility] 09-22-2021 11:37-0400 Diastolic blood pressure 91 mm[Hg] RAI PURVIS MD [facility] 09-22-2021 11:37-0400 Heart rate 87 /min RAI PURVIS MD [facility] 09-22-2021 11:37-0400 Respiratory rate 16 /min RAI PURVIS MD [facility] 09-22-2021 11:37-0400 Systolic blood pressure 156 mm[Hg] RAI PURVIS MD [facility] 09-19-2021 09:26-0400 Diastolic blood pressure 101 mm[Hg] Mi Nurse Work Phone: [facility] 09-19-2021 09:26-0400 Heart rate 118 /min Mi Nurse Work Phone: [facility] 09-19-2021 09:26-0400 Systolic blood pressure 163 mm[Hg] Mi Nurse Work Phone: [facility] 09-11-2021 15:59-0400 Body temperature 98.1 [degF] Enrike Cisneros MD Work Phone: [facility] 09-11-2021 15:59-0400 Body weight 87 kg Enrike Cisneros MD Work Phone: [facility] 09-11-2021 15:59-0400 Diastolic blood pressure 102 mm[Hg] Enrike Cisneros MD Work Phone: [facility] 09-11-2021 15:59-0400 Heart rate 89 /min Enrike Cisneros MD Work Phone: [facility] 09-11-2021 15:59-0400 Respiratory rate 20 /min Enrike Cisneros MD Work Phone: [facility] 09-11-2021 15:59-0400 SaO2% (BldA) [Mass fraction] 97 % Enrike Cisneros MD Work Phone: [facility] 09-11-2021 15:59-0400 Systolic blood pressure 164 mm[Hg] Enrike Cisneros MD Work Phone: [facility] 09-01-2021 13:53-0400 Body temperature 97.5 [degF] Anne Marie Bansal APRN.FIRE TENDER Work Phone: [facility] 09-01-2021 13:53-0400 Body weight 87.64 kg Anne Marie Bansal APRN.FIRE TENDER Work Phone: [facility] 09-01-2021 13:53-0400 Diastolic blood pressure 82 mm[Hg] Anne Marie Bansal ACCOUNT ADVISOR.FIRE TENDER Work Phone: [facility] 09-01-2021 13:53-0400 Heart rate 90 /min Anne Marie Bansal APRN.FIRE TENDER Work Phone: [facility] 09-01-2021 13:53-0400 Respiratory rate 16 /min Anne Marie Bansal ACCOUNT ADVISOR.FIRE TENDER Work Phone: [facility] 09-01-2021 13:53-0400 SaO2% (BldA) [Mass fraction] 97 % Anne Marie Bansal APRN.FIRE TENDER Work Phone: [facility] 09-01-2021 13:53-0400 Systolic blood pressure 144 mm[Hg] Anne Marie Bansal ACCOUNT ADVISOR.FIRE TENDER Work Phone: [facility] 08-16-2021 16:43-0400 Body temperature 98.1 [degF] Ana Athy PA-C Work Phone: [facility] 08-16-2021 16:43-0400 Body weight 87.18 kg Ana Athy PA-C Work Phone: [facility] 08-16-2021 16:43-0400 Diastolic blood pressure 112 mm[Hg] Ana Athy PA-C Work Phone: [facility] 08-16-2021 16:43-0400 Heart rate 99 /min Ana Athy PA-C Work Phone: [facility] 08-16-2021 16:43-0400 Respiratory rate 21 /min Ana Athy PA-C Work Phone: [facility] 08-16-2021 16:43-0400 SaO2% (BldA) [Mass fraction] 98 % Ana Athy PA-C Work Phone: [facility] 08-16-2021 16:43-0400 Systolic blood pressure 172 mm[Hg] Ana Athy PA-C Work Phone: [facility] Encounters Encounter Date Encounter Type Care Provider Facility Start: 09-29-2024 End: 09-29-2024 Refill Eliana Curtis APRN.CNP Work Phone: [facility] Comment on above: Refill Request Start: 09-28-2024 End: 09-28-2024 Refill Julita Collins MD Work Phone: [facility] Comment on above: Refill Request Start: 09-17-2024 End: 09-18-2024 Telephone encounter Julita Collins MD Work Phone: [facility] Comment on above: Refill Request; [facility] Start: 09-14-2024 End: 09-14-[address] Pablo Jackson MD -[facility] Work Phone: Start: 09-14-2024 End: 09-14-[address] Julita Collins MD Work Phone: [facility] Work Phone: Start: 09-14-2024 End: 09-14-2024 ambulatory [facility] Facility:[facility] Start: 08-18-2024 End: 08-18-[address] Julita Collins MD Work Phone: [facility] Work Phone: Start: 08-18-2024 End: 08-18-2024 Patient encounter procedure Jeannette [facility] -[facility] Work Phone: Start: 08-17-2024 End: 08-17-2024 Patient encounter procedure Jeannette NUÑEZ -[facility] Work Phone: Start: 08-17-2024 End: 08-18-2024 ambulatory [facility] Facility:[facility] Start: 08-07-2024 End: 08-07-2024 Patient encounter procedure Jeannette NUÑEZ -Laboratory Specimen Work Phone: Start: 08-07-2024 End: 08-07-2024 ambulatory [facility] Facility:[facility] Start: 08-04-2024 End: 08-05-2024 Get Medical Advice Julita Collins MD Work Phone: [facility] Comment on above: Medicine refill Start: 07-30-2024 End: 09-29-2024 Follow-up encounter Julita Collins MD Work Phone: [facility] Start: 07-25-2024 End: 07-28-2024 ambulatory Julita Collins MD Work Phone: [facility] Comment on above: X-ray Start: 07-25-2024 End: 07-25-2024 Patient encounter procedure Jeannette NUÑEZ -Radiology, [facility] Work Phone: Start: 07-25-2024 End: 07-25-2024 [facility] Facility:[facility] Start: 07-23-2024 End: 07-23-[address] Julita Collins MD Work Phone: [facility] Work Phone: Start: 07-23-2024 End: 07-23-2024 Patient encounter procedure Jeannette NUÑEZ -Radiology, [facility] Work Phone: Start: 07-22-2024 End: 09-21-2024 Follow-up encounter Julita Collins MD Work Phone: [facility] Start: 07-22-2024 End: 07-22-2024 Telephone encounter Julita Collins MD Work Phone: [facility] Comment on above: Orders (Xray knee) Start: 07-22-2024 End: 07-23-2024 ambulatory [facility] Facility:[facility] Start: 07-22-2024 End: 07-22-2024 Subsequent hospital visit by physician [facility] Work Phone: Radiology Comment on above: Chronic pain of left knee [M25.562, G89.29] Start: 07-20-2024 End: 07-20-2024 ambulatory [facility] Facility:[facility] Start: 07-20-2024 End: 07-20-2024 Patient encounter procedure Jeannette NUÑEZ -[facility] Work Phone: Start: 07-20-2024 End: 07-20-2024 ambulatory [facility] Facility:[facility] Start: 07-20-2024 End: 07-20-2024 Subsequent hospital visit by physician [facility] Comment on above: Encounter for screen ing mammogram for breast cancer [Z12.31] Start: 07-16-2024 End: 07-17-2024 Follow-up encounter Julita Collins MD Work Phone: Geriatrics Start: 07-14-2024 ambulatory [facility] Facility:[facility] Start: 07-14-2024 End: 07-14-2024 Subsequent hospital visit by physician Xr [facility] Work Phone: Radiology Start: 07-14-2024 End: 07-14-2024 Office outpatient visit 25 minutes Julita Collins MD Work Phone: [facility] [place] Comment on above: Chronic pain of left knee (Primary Dx); Fatty liver; Hypertension, essential Start: 07-14-2024 End: 07-14-2024 ambulatory [facility] Facility:[facility] Start: 06-30-2024 End: 07-03-2024 ambulatory Julita Collins MD Work Phone: [facility] Start: 06-17-2024 End: 06-17-2024 Patient encounter procedure Jeannette NUÑEZ -[facility] Work Phone: Start: 06-17-2024 End: 06-17-2024 ambulatory [facility] [place] Start: 06-16-2024 End: 06-16-[address] Julita Collins MD Work Phone: [facility] Work Phone: Start: 06-16-2024 End: 06-16-2024 Patient encounter procedure Jeannette NUÑEZ -Ultrasound, [facility] Work Phone: Start: 06-16-2024 End: 06-16-2024 ambulatory [facility] Facility:[facility] Start: 06-08-2024 End: 06-08-2024 Patient encounter procedure Jeannette NUÑEZ -Laboratory Work Phone: Start: 06-08-2024 End: 06-08-2024 Refill Julita Collins MD Work Phone: [facility] [place] Comment on above: Refill Request Start: 06-08-2024 End: 06-08-2024 ambulatory [facility] Facility:[facility] Start: 05-26-2024 End: 06-26-2024 ambulatory Julita Collins MD Work Phone: [facility] [place] Start: 04-15-2024 End: 04-15-2024 Patient encounter procedure Jeannette NUÑEZ -[facility] Work Phone: Start: 04-15-2024 End: 04-15-2024 ambulatory [facility] Facility:[facility] Start: 02-29-2024 End: 02-29-2024 ambulatory Shelli Nina RN NURSE OIL AND GAS SPECIALIST Comment on above: Cough Start: 01-31-2024 End: 01-31-2024 Telephone encounter Julita Collins MD Work Phone: [facility] [place] Comment on above: 2 Step TB Test Start: 01-10-2024 End: 01-10-2024 Telephone encounter Julita Collins MD Work Phone: [facility] [place] Comment on above: Life time handicap p lacard Start: 01-06-2024 End: 01-07-2024 ambulatory [facility] Facility:[facility] Start: 01-06-2024 End: 01-06-2024 ambulatory [facility] Facility:[facility] Start: 10-22-2023 End: 10-22-2023 ambulatory [facility] Facility:[facility] Start: 10-22-2023 End: 10-22-2023 Office outpatient visit 25 minutes Roberta Pritchard ACCOUNT ADVISOR.STUDIO ENGINEER Work Phone: [facility] [place] Comment on above: Observed sleep apnea (Primary Dx); Essential hypertension, benign; Has daytime drowsiness; Loud snoring Start: 10-07-2023 ambulatory Eliana Older ACCOUNT ADVISOR .FIRE TENDER Work Phone: [facility] [place] Comment on above: Medication renewal Start: 09-11-2023 Chart [facility] Work Phone: Neurology Start: 08-29-2023 End: 08-29-2023 Patient encounter procedure Eliana Older ACCOUNT ADVISOR.FIRE TENDER Work Phone: [facility] [place] Comment on above: Essential hypertensi on, benign (Primary Dx); Snoring; Witnessed episode of apnea; Other fatigue Start: 07-18-2023 End: 07-18-2023 Emergency department patient visit [facility] Work Phone: Start: 07-18-2023 ambulatory Lily Perez RN NURSE OIL AND GAS SPECIALIST Comment on above: Information Start: 07-18-2023 Patient encounter procedure Ladonna Hurd RN NURSE OIL AND GAS SPECIALIST Comment on above: Blood Pressure; Clin ical Update Start: 07-16-2023 End: 07-16-2023 Office outpatient visit 25 minutes Roberta Pritchard ACCOUNT ADVISOR.STUDIO ENGINEER Work Phone: [facility] [place] Comment on above: Hypertension, essent ial (Primary Dx); Dizziness Start: 07-12-2023 End: 07-12-2023 ambulatory Lashay Lara PT [facility] Comment on above: Traumatic coccydynia (Primary Dx); Status post fall Start: 07-08-2023 Refill Eliana Older ACCOUNT ADVISOR .FIRE TENDER Work Phone: [facility] [place] Comment on above: Refill Request Start: 07-02-2023 Telephone encounter Eliana Older ACCOUNT ADVISOR.FIRE TENDER Work Phone: [facility] [place] Comment on above: Patient Update Start: 07-02-2023 End: 07-02-2023 Patient encounter procedure Eliana Older ACCOUNT ADVISOR.FIRE TENDER Work Phone: [facility] [place] Comment on above: Annual physical exam (Primary Dx); Hypertension, essential; Dizziness; Prediabetes; Anxiety and depression; Dry skin; Dermatitis Start: 2023 End: 2023 ambulatory Margie Griffith INSIDE STEWARD/STEWARDESS Work Phone: [facility] Comment on above: Traumatic coccydynia (Primary Dx); Status post fall Start: 06-18-2023 End: 06-18-2023 ambulatory Lashay Lara PT [facility] Comment on above: Traumatic coccydynia (Primary Dx); Status post fall Start: 06-17-2023 End: 06-17-2023 Patient encounter procedure Lavonne Seay PA-C Work Phone: [facility] [place] Comment on above: Traumatic coccydynia (Primary Dx); Prediabetes; Hypertension, essential; Low HDL (under 40) Start: 06-13-2023 End: 06-13-2023 ambulatory Margie Griffith INSIDE STEWARD/STEWARDESS Work Phone: [facility] Comment on above: Traumatic coccydynia (Primary Dx); Status post fall Start: 06-11-2023 End: 06-11-2023 ambulatory Margie Griffith INSIDE STEWARD/STEWARDESS Work Phone: [facility] Comment on above: Traumatic coccydynia (Primary Dx); Status post fall Start: 05-31-2023 Refill Yvonne Ly APRN.CNP Work Phone: [facility] Comment on above: Refill Request Start: 05-29-2023 End: 05-29-2023 ambulatory Lashay Lara PT [facility] Comment on above: Status post fall (Pr imary Dx); Traumatic coccydynia Start: 05-20-2023 End: 05-20-2023 Patient encounter procedure Lavonne Seay PA-C Work Phone: [facility] [place] Comment on above: Traumatic coccydynia (Primary Dx); Status post fall Start: 04-25-2023 End: 04-25-[address] [facility] Start: 04-15-2023 End: 04-15-2023 Emergency department patient visit GERA MURRAY MD Facility:[facility] Start: 03-30-2023 End: 03-30-2023 Emergency department patient visit [facility] Work Phone: Start: 03-20-2023 ambulatory Lucia shrestha MD Work Phone: General Surgery Comment on above: Regarding Bowel Prep Start: 03-20-2023 E-mail encounter fro m caregiver Lucia Curtis MD Work Phone: [facility] Start: 03-06-2023 End: 03-06-2023 ambulatory Branden Juan PT Work Phone: [facility] Comment on above: Right wrist pain (Pr imary Dx) Start: 03-01-2023 Telephone encounter Lucia Mejia MD Work Phone: General Surgery Comment on above: 04/18/2023 COLON LODI ; Patient Question Start: 03-01-2023 End: 03-01-2023 Patient encounter procedure Lucia Curtis MD Work Phone: General Surgery Comment on above: Altered bowel habits Start: 02-26-2023 End: 02-26-2023 ambulatory Branden Juan PT Work Phone: [facility] Comment on above: Right wrist pain (Pr imary Dx) Start: 02-22-2023 ambulatory Lavonne Seay PA-C Work Phone: [facility] [place] Comment on above: Cologourd Start: 02-19-2023 End: 02-19-2023 ambulatory Margie Kashuba INSIDE STEWARD/STEWARDESS Work Phone: [facility] Comment on above: Right wrist pain (Pr imary Dx) Start: 02-12-2023 End: 02-12-2023 ambulatory Margie Kashuba INSIDE STEWARD/STEWARDESS Work Phone: [facility] Comment on above: Right wrist pain (Pr imary Dx) Start: 02-05-2023 End: 02-05-2023 ambulatory Branden Juan PT Work Phone: [facility] Comment on above: Right wrist pain (Pr imary Dx) Start: 02-04-2023 Telephone encounter Lavonne Den bow PA-C Work Phone: [facility] [place] Comment on above: referral for colonos copy Start: 02-02-2023 End: 02-02-2023 Emergency department patient visit ISABELLA PEREZ MD Facility:[facility] Start: 02-02-2023 End: 02-02-2023 Emergency department patient visit ISABELLA PEREZ MD [facility] Start: 01-31-2023 End: 01-31-2023 ambulatory Branden [facility] Comment on above: Right wrist pain (Pr imary Dx) Start: 01-23-2023 End: 01-23-2023 Patient encounter procedure Lavonne Seay PA-C Work Phone: [facility] [place] Comment on above: Right wrist pain (Pr imary Dx); Dyspepsia Start: 01-22-2023 End: 01-22-2023 Emergency department patient visit RAI PURVIS MD Facility:[facility] Start: 01-22-2023 End: 01-22-2023 Emergency department patient visit RAI PURVIS MD [facility] Start: 01-17-2023 End: 01-17-2023 Emergency department patient visit RAI PURVIS MD Facility:[facility] Start: 01-17-2023 End: 01-17-2023 Emergency department patient visit RAI PURVIS MD [facility] Start: 01-15-2023 End: 01-15-2023 Patient encounter procedure Lavonne Seay PA-C Work Phone: [facility] [place] Comment on above: Anxiety (Primary Dx) ; SOB (shortness of breath); Prediabetes; Low HDL (under 40); Rectal pain; Constipation, unspecified constipation type Start: 01-08-2023 End: 01-08-2023 Subsequent hospital visit by physician Xr [facility] [place] Work Phone: Radiology Comment on above: SOB (shortness of br eath) [R06.02] Start: 12-31-2022 End: 12-31-2022 ambulatory Eliana Curtis APRN.CNP Work Phone: [facility] [place] Comment on above: Mammogram Acute pain of left k nee (Primary Dx); Acute hip pain, left Start: 12-31-2022 End: 12-31-2022 Patient encounter procedure Lavonne Seay PA-C Work Phone: [facility] [place] Comment on above: Acute pain of left k nee (Primary Dx); Acute hip pain, left; Essential hypertension, benign; Vitamin D deficiency; Hypokalemia; Prediabetes; SOB (shortness of breath); History of TIA (transient ischemic attack); Lipid screening; Screening mammogram for breast cancer Start: 12-24-2022 End: 12-24-2022 ambulatory Margie Griffith INSIDE STEWARD/STEWARDESS Work Phone: [facility] Comment on above: Acute pain of left k nee (Primary Dx); Acute hip pain, left Start: 12-21-2022 End: 12-21-2022 ambulatory Margie Griffith INSIDE STEWARD/STEWARDESS Work Phone: [facility] Comment on above: Acute pain of left k nee (Primary Dx); Acute hip pain, left Start: 12-19-2022 End: 12-19-2022 ambulatory Branden Martinez PT Work Phone: [facility] Comment on above: Acute pain of left k nee (Primary Dx); Acute hip pain, left Start: 12-17-2022 Patient Msg [facility] Provider [facility] [place] Comment on above: Refill request Start: 12-16-2022 Refill Lavonne Seay PA-C Work Phone: [facility] [place] Comment on above: Refill Request Start: 12-05-2022 End: 12-05-2022 Patient encounter procedure Lavonne Seay PA-C Work Phone: [facility] [place] Comment on above: Acute pain of left k nee (Primary Dx); Acute hip pain, left; Localized swelling of left lower leg Start: 11-15-2022 End: 11-15-2022 Subsequent hospital visit by physician Xr [facility] Work Phone: Radiology Comment on above: Cervical radiculopat hy [M54.12] Start: 11-15-2022 End: 11-15-2022 Patient encounter procedure Jennifer Willinghamkala DO Work Phone: Orthopaedics Comment on above: Cervical radiculopat hy (Primary Dx) Start: 11-08-2022 Refill Eliana Older ACCOUNT ADVISOR .FIRE TENDER Work Phone: [facility] [place] Comment on above: Refill Request Start: 11-05-2022 Refill Eliana Older ACCOUNT ADVISOR .FIRE TENDER Work Phone: [facility] [place] Comment on above: Refill Request Start: 10-28-2022 ambulatory Eliana Older ACCOUNT ADVISOR .FIRE TENDER Work Phone: [facility] [place] Comment on above: Exercise Start: 10-26-2022 End: 10-26-2022 Emergency department patient visit [facility] Work Phone: Start: 10-22-2022 End: 10-22-2022 ambulatory Lashay O'Javier PT [facility] Comment on above: Acute pain of right shoulder (Primary Dx) Start: 10-15-2022 End: 10-15-2022 ambulatory Lashay O'Javier PT [facility] Comment on above: Acute pain of right shoulder (Primary Dx) Start: 10-06-2022 ambulatory Eliana Older ACCOUNT ADVISOR .FIRE TENDER Work Phone: [facility] [place] Comment on above: Medication Start: 10-02-2022 End: 10-02-2022 ambulatory Lashay O'Javier PT [facility] Comment on above: Acute pain of right shoulder (Primary Dx) Start: 09-28-2022 Telephone encounter Julita odonnell MD Work Phone: Internal [facility] Comment on above: Patient Update Start: 09-28-2022 End: 09-28-2022 ambulatory Lashay O'Javier PT [facility] Comment on above: Acute pain of right shoulder (Primary Dx) Start: 09-20-2022 End: 09-20-2022 Patient encounter procedure Eliana Curtis APRN.CNP Work Phone: [facility] [place] Comment on above: Essential hypertensi on, benign (Primary Dx); Acute pain of right shoulder Start: 09-10-2022 End: 09-10-2022 Patient encounter procedure Julita oCllins MD Work Phone: [facility] [place] Comment on above: Carpal tunnel syndro me on both sides (Primary Dx); Essential hypertension, benign; Hypokalemia; Vitamin D deficiency Start: 09-07-2022 Telephone encounter Eliana Curtis APRN.CNP Work Phone: [facility] [place] Comment on above: Results EMG results Start: 09-07-2022 End: 09-07-2022 ambulatory Emg 850) Neurology Comment on above: EMG Start: 09-07-2022 End: 09-07-2022 Patient encounter procedure Emg 1 Neur [facility] (Max Weight: 850) [facility] Start: 09-06-2022 End: 09-06-2022 Patient encounter procedure Eliana Curtis APRN.CNP Work Phone: [facility] [place] Comment on above: Fall, subsequent enc ounter (Primary Dx); Acute pain of right shoulder; Concussion without loss of consciousness, subsequent encounter; Hypokalemia Start: 08-14-2022 Refill Eliana Curtis APRN, .CNP Work Phone: [facility] [place] Comment on above: Refill Request Start: 08-13-2022 End: 08-13-2022 [facility] Start: 06-08-2022 End: 06-08-2022 Patient encounter procedure Julita Collins MD Work Phone: [facility] [place] Comment on above: Chronic right-sided low back pain without sciatica (Primary Dx); Rib pain on right side; Essential hypertension, benign Start: 06-02-2022 Refill Arlen Curtis APRN, .CNP Work Phone: [facility] [place] Comment on above: Refill Request Start: 05-30-2022 End: 05-30-2022 Patient encounter procedure Eliana Curtis APRN.CNP Work Phone: [facility] [place] Comment on above: Right flank pain (Pr imary Dx); Dysuria; Dark urine Start: 05-30-2022 ambulatory Julita Lucia Work Phone: [facility] [place] Comment on above: urinary symptoms Start: 05-16-2022 End: 05-16-2022 Patient encounter procedure Eliana Curtis APRN.CNP Work Phone: [facility] [place] Comment on above: Rib pain on right si de (Primary Dx) Start: 05-05-2022 Refill Julita Lucia Work Phone: [facility] [place] Comment on above: Refill Request Start: 05-04-2022 End: 05-04-2022 Patient encounter procedure Markos BERMUDEZ Work Phone: [facility] Comment on above: Rib pain on right si de (Primary Dx); Rib injury; Contusion of rib on right side, initial encounter Start: 04-30-2022 ambulatory Julita Lucia Work Phone: [facility] [place] Comment on above: Cough medicine Start: 04-18-2022 End: 04-18-2022 Patient encounter procedure Julita Collins MD Work Phone: [facility] [place] Comment on above: Annual physical exam (Primary Dx); Anxiety; Sleep apnea, unspecified type; Essential hypertension, benign; Vitamin D deficiency Start: 04-14-2022 End: 04-14-2022 Subsequent hospital visit by physician Alban [facility] [place] Work Phone: Radiology Comment on above: Rib pain on right si de [R07.81] Start: 04-14-2022 End: 04-14-2022 Patient encounter procedure Donna Dorothyblayne KEATING Work Phone: [facility] Comment on above: Rib pain on right si de (Primary Dx) Start: 02-24-2022 End: 02-24-2022 [facility] Start: 02-07-2022 Documentation procedure Mammog david Coordinator [facility] Start: 02-07-2022 Letter encounter Mammography Coordinator [facility] Department Start: 12-27-2021 End: 12-27-2021 Patient encounter procedure Julita Collins MD Work Phone: [facility] [place] Comment on above: Essential hypertensi on, benign (Primary Dx); Encounter for immunization; Screening for HIV (human immunodeficiency virus) Start: 12-06-2021 End: 12-06-2021 [facility] Start: 11-14-2021 End: 11-14-2021 ambulatory Praful White PT [facility] Comment on above: Contusion of lower b ack, subsequent encounter (Primary Dx) Start: 10-30-2021 End: 10-30-2021 ambulatory Praful White PT [facility] Comment on above: Contusion of lower b ack, subsequent encounter (Primary Dx) Start: 10-23-2021 End: 10-23-2021 ambulatory Praufl White PT [facility] Comment on above: Contusion of lower b ack, subsequent encounter (Primary Dx) Start: 10-20-2021 End: 10-20-2021 ambulatory Praful White PT [facility] Comment on above: Contusion of lower b ack, subsequent encounter Start: 10-18-2021 ambulatory Brandon garcía MD Work Phone: [facility] [place] Comment on above: Is physical therapy Start: 10-12-2021 End: 10-12-2021 Patient encounter procedure Brandon Jimenez MD Work Phone: [facility] [place] Comment on above: Contusion of lower b ack, subsequent encounter; Closed head injury with concussion, without loss of consciousness, subsequent encounter; Essential hypertension, benign Start: 10-10-2021 End: 10-10-2021 Patient encounter procedure Lashay Sheets APRN.CNP Work Phone: [facility] Comment on above: Treatment not availa ble (Primary Dx) Start: 09-28-2021 End: 09-28-2021 Patient encounter procedure Brandon Jimenez MD Work Phone: [facility] [place] Comment on above: Closed head injury w ith concussion, without loss of consciousness, subsequent encounter (Primary Dx); Contusion of back, unspecified laterality, subsequent encounter; Contusion of lower back, subsequent encounter; Essential hypertension, benign Start: 09-22-2021 ambulatory Julita Lucia Work Phone: [facility] [place] Comment on above: Medication Start: 09-22-2021 End: 09-22-2021 Emergency department patient visit RAI PURVIS MD [facility] Start: 09-19-2021 Telephone encounter Julita odonnell MD Work Phone: [facility] [place] Comment on above: Blood Pressure Check Start: 09-19-2021 End: 09-19-2021 Nursing evaluation of patient and report Mi Nurse Work Phone: [facility] [place] Comment on above: Essential hypertensi on, benign (Primary Dx) Start: 09-11-2021 End: 09-11-2021 Patient encounter procedure Enrike Cisneros MD Work Phone: [facility] Comment on above: Acute left ankle joel n (Primary Dx) Start: 09-01-2021 End: 09-01-2021 Patient encounter procedure Anne Marie Bansal APRN.FIRE TENDER Work Phone: [facility] Comment on above: Acute left ankle joel n (Primary Dx) Start: 08-24-2021 ambulatory Eliana SoodFIRE TENDER Work Phone: [facility] [place] Comment on above: Blood pressure check Start: 08-17-2021 Telephone encounter Julita odonnell MD Work Phone: [facility] [place] Comment on above: Patient Update Start: 08-16-2021 End: 08-16-2021 Subsequent hospital visit by physician Alban [facility] [place] Work Phone: Radiology Comment on above: Injury of left ankle , initial encounter [S99.912A] Start: 08-16-2021 End: 08-16-2021 Patient encounter procedure Ana Newman PA-C Work Phone: [facility] Comment on above: Injury of left ankle , initial encounter (Primary Dx) Start: 08-02-2021 ambulatory No [facility] [place] Start: 07-26-2021 ambulatory No [facility] [place] Start: 07-10-2021 Refill Bozena Barrios APRN.CNP Work Phone: [facility] [place] Comment on above: Refill Request Start: 07-03-2021 ambulatory Julita Lucia Work Phone: [facility] [place] Comment on above: Branden oscopy Start: 06-14-2021 End: 06-14-2021 Subsequent hospital visit by physician Xr [facility] Work Phone: Radiology Comment on above: Knee injuries, left, initial encounter [S89.92XA] Start: 04-14-2021 End: 04-14-2021 Subsequent hospital visit by physician Xr [facility] Work Phone: Radiology Comment on above: Left arm pain [M79.6 02] Start: 05-22-2015 Patient encounter status [facility] Procedures Date Procedure Procedure Detail Performing Clinician Start: 09-14-2024 X-ray of lumbosacral spine Dr. Julita Collins MD Work Phone: Start: 08-18-[address] Julita Collins MD Work Phone: Comment on above: Test Ordered: [id number] Enhanced Liver Fibrosis (ELF)ELF(TM) Score 8.79 BN Reference Range: <9.80ELF(TM) Score Interpretation:Risk cut-offs to assess the likelihood of progressionto cirrhosis and liver-related clinical events within3.9 years following baseline ELF score (IQR: 14.0-22.4months)*: Lower risk < 9.80 Mid risk 9.80 - 11.29 Higher risk >11.29Note: The ELF(TM) Score is a unitless numerical value.*Bib SA, Lamin VW, Manuel T, et al. Selonsertibfor patients with bridging fibrosis or compensatedcirrhosis due to SANCHEZ: Results from randomized phaseIII STELLAR trials. J Hepatol. 2020 Oct;73(1):26-39.Performed at: [facility] [address] [id number] Director: Bety Koch MD, Phone: [phone] at: [facility] [id number] Director: Mil Waggoner PhD, Phone: [phone] Start: 08-07-2024 Clostridium diff[address] e detection Dr. Julita Collins MD Work Phone: Start: 07-25-2024 Plain X-ray abdomen Dr. Julita Collins MD Work Phone: Start: 07-23-2024 Plain X-ray abdomen Dr. Julita Collins MD Work Phone: Start: 07-20-2024 Screening digital br east tomosynthesis bi Julita Collins MD Work Phone: Start: 06-16-2024 Ultrasound elastogra phy of liver Dr. Julita Collins MD Work Phone: Start: 06-08-[address] Barrie Collins MD Work Phone: Comment on above: The atypical pANCA p attern has been observed in asignificant percentage of patients with ulcerative colitis,primary sclerosing cholangitis and autoimmune hepatitis. Start: 2023 Lipid 1995 panel - S ana or Plasma Margie Wonalva INSIDE STEWARD/STEWARDESS Work Phone: Start: 03-30-2023 Computed tomography of abdomen and pelvis with contrast Start: 01-08-2023 Radiologic exam chest 2 views Lavonne Seay PA-C Work Phone: Start: 01-08-2023 Lipid 1996 panel - S ana or Plasma Lavonne BERMUDEZ-C Work Phone: Start: 11-15-2022 Radex spine cervical 4 or 5 views Jennifer Lucas DO Work Phone: Start: 10-26-2022 CT cervical spine wi thout contrast Start: 10-26-2022 CT of head without contrast Start: 10-26-2022 Plain x-ray of pelvi s and lower extremity Start: 10-26-2022 Radiologic examination of knee Start: 09-07-2022 Nerve conduction konstantin dies 5-6 studies Julita Collins MD Work Phone: Start: 08-13-2022 Plain X-ray of shoulder Start: 08-13-2022 CT of head without contrast Start: 05-30-2022 Urnls dip stick/tabl et rgnt auto w/o microscopy Eliana Curtis ACCOUNT ADVISOR.FIRE TENDER Work Phone: Start: 04-14-2022 Radex ribs uni w/pos teroant ch minimum 3 views Donna De La Cruz ACCOUNT ADVISOR.FIRE TENDER Work Phone: Start: 02-06-2022 Mammography Mammograph y Coordinator Start: 12-06-2021 Plain x-ray of elbow Start: 12-06-2021 CT of chest, abdomen and pelvis without contrast Start: 08-16-2021 Radex ankle complete minimum 3 views Ana Jf Newman PA-C Work Phone: Start: 06-14-2021 Radiologic exam knee complete 4/more views Christi Mishra ACCOUNT ADVISOR.FIRE TENDER Work Phone: Start: 04-26-2021 Lipid 1996 panel - S ana or Plasma Branden Martinez PT Work Phone: Start: 04-14-2021 Radex wrist complete minimum 3 views Lavonne Seay PA-C Work Phone: Start: 07-06-2020 Adult depression scr eening assessment Julita Collins MD Work Phone: Start: 02-05-2020 Mammography Julita odonnell MD Work Phone: Abdominal hysterectomy RAI PURVIS MD Cholecystectomy RAI NUNEZ MD Tonsillectomy RAI JANG MD Plan of Treatment Date Care Activity Detail Author Start: 06-20-2028 Lipid panel Lipid Screening [facility] Start: 01-09-2028 Lipid 1996 panel - Serum or Plasma Lipid Screening [facility] Start: 01-09-2028 Lipid panel Lipid Screening [facility] Start: 07-15-2027 Diabetes Screening Diabetes Screening [facility] Start: 06-20-2026 Diabetes Screening Diabetes Screening [facility] Start: 04-26-2026 Lipid 1996 panel - Serum or Plasma Lipid Screening [facility] Start: 04-26-2026 LIPID SCREEN LIPID SCREEN [facility] Start: 01-08-2026 Diabetes Screening Diabetes Screening [facility] Start: 09-27-2025 DIABETES SCREEN DIABETES SCREEN [facility] Start: 09-27-2025 Diabetes Screening Diabetes Screening [facility] Start: 09-06-2025 DIABETES SCREEN DIABETES SCREEN [facility] Start: 07-20-2025 Screening for malignant neoplasm of breast Mammogram Screening [facility] Start: 07-14-2025 Annual PCP Team Chronic Disease Visit Annual PCP Team Chronic Disease Visit [facility] Start: 06-08-2025 DIABETES SCREEN DIABETES SCREEN [facility] Start: 12-07-2024 Influenza vaccination Influenza Vaccine (Season Ended) [facility] Start: 10-26-2024 ambulatory Ambulatory Facility:[facility] Start: 10-19-2024 End: 10-19-2024 Patient encounter procedure 10/19/2024 8:30 AM EDT Office Visit Orthopaedics [address] [place] [address] Priya Vegas PA-C [address] [place] [address] Chronic pain of left knee [M25.562, G89.29] Orthopaedics Comment on above: Chronic pain of left knee [M25.562, G89. 29] Start: 10-12-2024 End: 10-12-2024 Patient encounter procedure 10/12/2024 11:00 AM EDT Office Visit Orthopaedics [address] [place] [address] Priya Vegas PA-C [address] [place] [address] Chronic pain of left knee [M25.562, G89.29] Orthopaedics Comment on above: Chronic pain of left knee [M25.562, G89. 29] Start: 10-05-2024 End: 10-05-2024 Patient encounter procedure 10/05/2024 9:20 AM EDT Office Visit [facility] [place] [address] [place] [address] Julita Collins MD [address] [place] [address] 6 week follow up [facility] [place] Comment on above: 6 week follow up Start: 09-30-2024 ambulatory Ambulatory Facility:[facility] Start: 09-14-2024 X-ray of lumbosacral spine L/S Spine Min 4 Views [facility] Start: 09-14-2024 XR Spine Lumbar and Sacrum GE 4 Views [facility] Start: 08-28-2024 Annual PCP Team Chronic Disease Visit Annual PCP Team Chronic Disease Visit [facility] Start: 08-18-2024 End: 08-18-2024 ambulatory 08/18/2024 8:30 AM EDT OT/PT/Speech Visit [facility] [address] [place] [address] Branden Martinez, PT [address] [place], [place] [id number] M25.562,G89.29 (ICD-10-CM) - Chronic pain of left knee [facility] Comment on above: M25.562,G89.29 (ICD-10-CM) - Chronic joel n of left knee Start: 08-03-2024 End: 08-03-2024 ambulatory 08/03/2024 10:00 AM EDT OT/PT/Speech Visit [facility] [address] [place] [address] Branden Martinez, PT [address], [place] [id number] Chronic pain of left knee [M25.562, G89.29] [facility] Comment on above: Chronic pain of left knee [M25.562, G89. 29] Start: 07-20-2024 End: 07-20-2024 Patient encounter procedure 07/20/2024 7:50 AM EDT Appointment Mammogram [address] [place] [address] Mammogram Start: 07-14-2024 End: 07-14-2024 Patient encounter procedure 07/14/2024 9:20 AM EDT Office Visit [facility] [place] [address] [facility] [place] [address] Julita Collins MD [address] [facility] [address] BP (Check up) [facility] [place] Comment on above: BP (Check up) Start: 07-06-2024 End: 07-06-2024 ambulatory 07/06/2024 8:45 AM EDT Results Only [facility] [address] [facility] [place] [address] [facility] Start: 07-06-2024 End: 07-06-2024 Patient encounter procedure 07/06/2024 8:10 AM EDT Appointment Mammogram [address] [place] [address] Mammogram Start: 07-01-2024 Annual PCP Team Chronic Disease Visit Annual PCP Team Chronic Disease Visit [facility] Start: 07-01-2024 Hepatitis B Vaccine (1 of 3 - 19+ 3-dose series) Hepatitis B Vaccine (1 of 3 - 19+ 3-dose series) [facility] Comment on above: Postponed from 1988 (Declined at t his time) Start: 07-01-2024 HIV screening HIV Screening [facility] Comment on above: Postponed from 06/22/1987 (Declined at t his time) Start: 07-01-2024 Shingrix Vaccine (1 of 2) Shingrix Vaccine (1 of 2) [facility] Comment on above: Postponed from 06/22/2019 (Declined at t his time) Start: 07-01-2024 Urine microalbumin profile DTaP,Tdap,Td Vaccine (2 - Td or Tdap) [facility] Comment on above: Postponed from 06/16/2019 (Declined at t his time) Start: 06-30-2024 End: 09-29-2024 Basic metabolic 2000 panel - Serum or Plasma BASIC METABOLIC PANEL Lab Routine Hypertension, essential Expected: 06/30/2024, Expires: 09/29/2024 [facility] Work Phone: Comment on above: Expected: 06/30/2024, Expires: Start: 06-30-2024 End: 09-29-2024 Hemoglobin A1c in Blood HEMOGLOBIN A1C Lab Routine Prediabetes Expected: 06/30/2024, Expires: 09/29/2024 [facility] Comment on above: Expected: 06/30/2024, Expires: Start: 06-16-2024 Annual PCP Team Chronic Disease Visit Annual PCP Team Chronic Disease Visit [facility] Start: 06-16-2024 Ultrasound elastography of liver ABD Limited w/ Elastography [facility] Start: 05-20-2024 Annual PCP Team Chronic Disease Visit Annual PCP Team Chronic Disease Visit [facility] Start: 05-20-2024 BP Controlled (<130/80) BP Controlled (<130/80) [facility] Start: 04-26-2024 DIABETES SCREEN DIABETES SCREEN [facility] Start: 04-12-2024 Screening for malignant neoplasm of breast Mammogram Screening [facility] Start: 01-24-2024 Annual PCP Team Chronic Disease Visit Annual PCP Team Chronic Disease Visit [facility] Start: 01-24-2024 BP Controlled (<130/80) BP Controlled (<130/80) [facility] Start: 01-16-2024 Annual PCP Team Chronic Disease Visit Annual PCP Team Chronic Disease Visit [facility] Start: 01-16-2024 Covid-19 Vaccine () Covid-19 Vaccine () [facility] Comment on above: Postponed from 12/07/2022 (Declined at t his time) Start: 01-01-2024 Annual PCP Team Chronic Disease Visit Annual PCP Team Chronic Disease Visit [facility] Start: 12-08-2023 Covid-19 Vaccine ( season) Covid-19 Vaccine ( season) [facility] Start: 12-08-2023 Covid-19 Vaccine ( season) Covid-19 Vaccine () [facility] Start: 12-08-2023 Influenza vaccination [facility] Start: 12-06-2023 ANNUAL PCP TEAM CHRONIC DISEASE VISIT ANNUAL PCP TEAM CHRONIC DISEASE VISIT [facility] Start: 11-22-2023 End: 11-22-2023 Patient encounter procedure 11/22/2023 8:00 AM EDT Office Visit [facility] [place] [address] [facility] [place] [address] Roberta Pritchard, ACCOUNT ADVISOR.STUDIO ENGINEER [address] [place] [address] blood pressure f/u [facility] [place] Comment on above: blood pressure f/u Start: 10-15-2023 End: 10-15-2023 Patient encounter procedure 10/15/2023 8:00 AM EDT Office Visit [facility] [place] [address] [facility] [place] [address] Roberta Pritchard, ACCOUNT ADVISOR.STUDIO ENGINEER [address] [place] [place] [address] Blood pressure recheck [facility] [place] Comment on above: Blood pressure recheck Start: 10-06-2023 [facility]enza [facility] from 12/07/2022 (Declined at t his time) Start: 10-04-2023 End: 10-04-2023 Patient encounter procedure 10/04/2023 7:40 AM EDT Office Visit [facility] [place] [address] [facility] [place] [address] Roberta Pritchard, ACCOUNT ADVISOR.STUDIO ENGINEER [address] [facility] [place] [address] Blood pressure recheck [facility] [place] Comment on above: Blood pressure recheck Start: 09-21-2023 ANNUAL PCP TEAM CHRONIC DISEASE VISIT ANNUAL PCP TEAM CHRONIC DISEASE VISIT [facility] Start: 09-11-2023 ANNUAL PCP TEAM CHRONIC DISEASE VISIT ANNUAL PCP TEAM CHRONIC DISEASE VISIT [facility] Start: 09-07-2023 ANNUAL PCP TEAM CHRONIC DISEASE VISIT ANNUAL PCP TEAM CHRONIC DISEASE VISIT [facility] Start: 09-05-2023 End: 09-05-2023 Patient encounter procedure 09/05/2023 8:00 AM EDT Office Visit [facility] [place] [address] [place] [address] Roberta Pritchard APRN.STUDIO ENGINEER [address] [place] [address] BP follow up [facility] [place] Comment on above: BP follow up Start: 08-04-2023 ANNUAL PCP TEAM CHRONIC DISEASE VISIT ANNUAL PCP TEAM CHRONIC DISEASE VISIT [facility] Start: 08-04-2023 BP CONTROLLED (<130/80) BP CONTROLLED (<130/80) [facility] Start: 07-18-2023 [facility] Start: 07-18-2023 Blood chemistry [facility] Start: 07-18-2023 Electrocardiographic procedure [facility] Start: 07-18-2023 Troponin I measurement [facility] Start: 06-17-2023 End: 09-16-2023 CBC W Auto Differential panel - Blood CBC + DIFF Lab Routine Hypertension, essential Expected: 06/17/2023, Expires: 09/16/2023 [facility] Work Phone: Comment on above: Expected: 06/17/2023, Expires: Start: 06-17-2023 End: 09-16-2023 Comprehensive metabolic 2000 panel - Serum or Plasma COMP METABOLIC PANEL Lab Routine Prediabetes Hypertension, essential Low HDL (under 40) Expected: 06/17/2023, Expires: 09/16/2023 [facility] Work Phone: Comment on above: Expected: 06/17/2023, Expires: Start: 06-17-2023 End: 09-16-2023 Hemoglobin A1c in Blood HGB A1C Lab Routine Prediabetes Hypertension, essential Low HDL (under 40) Expected: 06/17/2023, Expires: 09/16/2023 [facility] Work Phone: Comment on above: Expected: 06/17/2023, Expires: 4 Start: 06-17-2023 End: 09-16-2023 Lipid 1996 panel - Serum or Plasma LIPID PANEL BASIC Lab Routine Prediabetes Hypertension, essential Low HDL (under 40) Expected: 06/17/2023, Expires: 09/16/2023 [facility] Work Phone: Comment on above: Expected: 06/17/2023, Expires: Start: 06-09-2023 ANNUAL PCP TEAM CHRONIC DISEASE VISIT ANNUAL PCP TEAM CHRONIC DISEASE VISIT [facility] Start: 06-09-2023 BP CONTROLLED (<130/80) BP CONTROLLED (<130/80) [facility] Start: 05-30-2023 ANNUAL PCP TEAM CHRONIC DISEASE VISIT ANNUAL PCP TEAM CHRONIC DISEASE VISIT [facility] Start: 05-16-2023 ANNUAL PCP TEAM CHRONIC DISEASE VISIT ANNUAL PCP TEAM CHRONIC DISEASE VISIT [facility] Start: 04-18-2023 ANNUAL PCP TEAM CHRONIC DISEASE VISIT ANNUAL PCP TEAM CHRONIC DISEASE VISIT [facility] Start: 04-08-2023 Behavioral Health Screening Behavioral Health Screening [facility] Start: 04-08-2023 Depression Assessment Depression Assessment [facility] Start: 03-30-2023 [facility] Start: 03-19-2023 ANNUAL PCP TEAM CHRONIC DISEASE VISIT ANNUAL PCP TEAM CHRONIC DISEASE VISIT [facility] Start: 03-19-2023 COVID-19 VACCINE (3 - Booster for Pfizer series) COVID-19 VACCINE (3 - Booster for Pfizer series) [facility] Comment on above: Postponed from 02/10/2021 (Declined at t his time) Start: 03-19-2023 COVID-19 VACCINE (3 - Pfizer series) COVID-19 VACCINE (3 - Pfizer series) [facility] Comment on above: Postponed from 02/10/2021 (Declined at t his time) Start: 03-19-2023 SHINGRIX VACCINE (1 of 2) SHINGRIX VACCINE (1 of 2) [facility] Comment on above: Postponed from 06/22/2019 (Declined at t his time) Start: 03-19-2023 Urine microalbumin profile [facility] Comment on above: Postponed from 06/16/2019 (Declined at t his time) Start: 03-02-2023 End: 05-02-2023 25-hydroxyvitamin D3 [Mass/volume] in Serum or Plasma VITAMIN D 25 HYDROXY Lab Routine Vitamin D deficiency Expected: 03/02/2023, Expires: 05/02/2023 [facility] Work Phone: Comment on above: Expected: 03/02/2023, Expires: 4 Start: 02-06-2023 Mammography [facility] Start: 02-06-2023 Screening for malignant neoplasm of breast Mammogram Screening [facility] Start: 12-31-2022 End: 03-02-2023 CBC W Auto Differential panel - Blood CBC + DIFF Lab Routine Acute pain of left knee Acute hip pain, left Essential hypertension, benign Vitamin D deficiency Expected: 12/31/2022, Expires: 03/02/2023 [facility] Work Phone: Comment on above: Expected: 12/31/2022, Expires: 3 Start: 12-31-2022 End: 03-02-2023 Comprehensive metabolic 2000 panel - Serum or Plasma COMP METABOLIC PANEL Lab Routine Essential hypertension, benign Vitamin D deficiency Hypokalemia Expected: 12/31/2022, Expires: 03/02/2023 [facility] Work Phone: Comment on above: Expected: 12/31/2022, Expires: 3 Start: 12-31-2022 End: 03-02-2023 Hemoglobin A1c in Blood HGB A1C Lab Routine Prediabetes Expected: 12/31/2022, Expires: 03/02/2023 [facility] Work Phone: Comment on above: Expected: 12/31/2022, Expires: 3 Start: 12-31-2022 End: 03-02-2023 Lipid 1996 panel - Serum or Plasma LIPID PANEL BASIC Lab Routine History of TIA (transient ischemic attack) Lipid screening Expected: 12/31/2022, Expires: 03/02/2023 [facility] Work Phone: Comment on above: Expected: 12/31/2022, Expires: 3 Start: 12-27-2022 ANNUAL PCP TEAM CHRONIC DISEASE VISIT ANNUAL PCP TEAM CHRONIC DISEASE VISIT [facility] Start: 12-07-2022 Influenza vaccination [facility] Start: 10-12-2022 ANNUAL PCP TEAM CHRONIC DISEASE VISIT ANNUAL PCP TEAM CHRONIC DISEASE VISIT [facility] Start: 10-05-2022 Influenza vaccination INFLUENZA (#1) [facility] Comment on above: Postponed from 12/07/2021 (Declined at t his time) Start: 09-28-2022 ANNUAL PCP TEAM CHRONIC DISEASE VISIT ANNUAL PCP TEAM CHRONIC DISEASE VISIT [facility] Start: 09-21-2022 End: 11-21-2022 Basic metabolic 2000 panel - Serum or Plasma BASIC METABOLIC PNL Lab Routine Hypokalemia Expected: 09/21/2022 (Approximate), Expires: 11/21/2022 [facility] Work Phone: Comment on above: Expected: 09/21/2022 (Approximate), Expi res: 11/21/2022 Start: 09-06-2022 End: 11-06-2022 Basic metabolic 2000 panel - Serum or Plasma [facility] Work Phone: Comment on above: Expected: 09/06/2022, Expires: 3 Start: 06-14-2022 ANNUAL PCP TEAM CHRONIC DISEASE VISIT ANNUAL PCP TEAM CHRONIC DISEASE VISIT [facility] Start: 06-08-2022 End: 08-08-2022 Urinalysis complete panel - Urine [facility] Work Phone: Comment on above: Expected: 06/08/2022, Expires: 3 Start: 04-18-2022 End: 06-18-2022 25-hydroxyvitamin D3 [Mass/volume] in Serum or Plasma VITAMIN D 25 HYDROXY Lab Routine Annual physical exam Expected: 04/18/2022, Expires: 06/18/2022 [facility] Work Phone: Comment on above: Expected: 04/18/2022, Expires: 3 Start: 04-18-2022 End: 06-18-2022 Basic metabolic 2000 panel - Serum or Plasma BASIC METABOLIC PNL Lab Routine Annual physical exam Expected: 04/18/2022, Expires: 06/18/2022 [facility] Work Phone: Comment on above: Expected: 04/18/2022, Expires: 3 Start: 04-18-2022 End: 06-18-2022 CBC W Auto Differential panel - Blood CBC + DIFF Lab Routine Annual physical exam Expected: 04/18/2022, Expires: 06/18/2022 [facility] Work Phone: Comment on above: Expected: 04/18/2022, Expires: 3 Start: 04-08-2022 DEPRESSION ASSESSMENT DEPRESSION ASSESSMENT [facility] Start: 03-28-2022 End: 05-28-2022 Basic metabolic 2000 panel - Serum or Plasma BASIC METABOLIC PNL Lab Routine Essential hypertension, benign Expected: 03/28/2022, Expires: 05/28/2022 [facility] Work Phone: Comment on above: Expected: 03/28/2022, Expires: 3 Start: 03-28-2022 End: 05-28-2022 CBC W Auto Differential panel - Blood CBC + DIFF Lab Routine Essential hypertension, benign Expected: 03/28/2022, Expires: 05/28/2022 [facility] Work Phone: Comment on above: Expected: 03/28/2022, Expires: 3 Start: 03-28-2022 End: 05-28-2022 Lipid 1996 panel - Serum or Plasma LIPID PANEL BASIC Lab Routine Essential hypertension, benign Expected: 03/28/2022, Expires: 05/28/2022 [facility] Work Phone: Comment on above: Expected: 03/28/2022, Expires: 3 Start: 02-24-2022 Plain X-ray of shoulder Shoulder min [address] [facility] Work Phone: Start: 02-24-2022 XR Shoulder GE 2 Views [facility] Work Phone: Start: 12-27-2021 End: 02-26-2022 HIV 1+2 Ab [Presence] in Serum or Plasma by Immunoassay HIV 1 2 COMBO(AG/AB),WITH REFLEX TO DIFFERENTIATION Lab Routine Screening for HIV (human immunodeficiency virus) Expected: 12/27/2021, Expires: 02/26/2022 [facility] Work Phone: Comment on above: Expected: 12/27/2021, Expires: Start: 12-07-2021 Influenza vaccination [facility] Start: 12-06-2021 Incentive spirometry [facility] Work Phone: Start: 12-06-2021 [facility] Work Phone: Start: 10-05-2021 Influenza vaccination INFLUENZA (#1) [facility] Comment on above: Postponed from 12/07/2020 (Declined at t his time) Start: 07-06-2021 Adult depression screening assessment DEPRESSION SCREENING [facility] Start: 05-18-2021 COVID-19 VACCINE (3 - Booster for Pfizer series) COVID-19 VACCINE (3 - Booster for Pfizer series) [facility] Start: 04-08-2021 DEPRESSION ASSESSMENT DEPRESSION ASSESSMENT [facility] Start: 02-10-2021 COVID-19 VACCINE (3 - Booster for Pfizer series) COVID-19 VACCINE (3 - Booster for Pfizer series) [facility] Start: 02-04-2021 Mammography MAMMOGRAM [facility] Start: 06-22-2019 Pneumococcal Vaccine: 50+ (2 of 2 - PCV) Pneumococcal Vaccine: 50+ (2 of 2 - PCV) [facility] Start: 06-22-2019 SHINGRIX VACCINE (1 of 2) SHINGRIX VACCINE (1 of 2) [facility] Start: 06-16-2019 Urine microalbumin profile [facility] Start: 2014 COLOGUARD (FIT-DNA) COLOGUARD (FIT-DNA) [facility] Start: 2014 Colonoscopy COLONOSCOPY [facility] Start: 2014 COLORECTAL CANCER SCREENING COLORECTAL CANCER SCREENING [facility] Start: [address] COLONOGRAPHY [facility] Start: 2014 FECAL OCCULT BLOOD FECAL OCCULT BLOOD [facility] Start: 2014 Screening for malignant neoplasm of colon [facility] Start: 2014 SIGMOIDOSCOPY SIGMOIDOSCOPY [facility] Start: 1988 Hepatitis B Vaccine (1 of 3 - 19+ 3-dose series) Hepatitis B Vaccine (1 of 3 - 19+ 3-dose series) [facility] Start: 06-22-1987 Anxiety Screening Anxiety Screening [facility] Start: 06-22-1987 BP CONTROLLED (<130/80) BP CONTROLLED (<130/80) [facility] Start: 06-22-1987 Depression Screening Depression Screening [facility] Start: 06-22-1987 HIV SCREENING HIV SCREENING [facility] Start: 06-22-1987 HIV screening HIV Screening [facility] Start: 1969 HEPATITIS B (1 of 3 - 3-dose series) HEPATITIS B (1 of 3 - 3-dose series) [facility] Start: 1969 Hepatitis B Vaccine (1 of 3 - 3-dose series) Hepatitis B Vaccine (1 of 3 - 3-dose series) [facility] Anion gap measurement [facility] Bacteria identified in Urine by Culture URINE CULTURE Microbiology Routine Right flank pain Dysuria Dark urine Ordered: 05/30/2022 [facility] Work Phone: Comment on above: Ordered: 05/30/2022 BUN/Creatinine ratio [facility] C reactive protein [Mass/volume] in Serum or Plasma [facility] Calcium [Mass/volume ] in Serum or Plasma [facility] Carbon dioxide, tota l [Moles/volume] in Serum or Plasma [facility] Chloride [Moles/volu me] in Serum or Plasma [facility] Clostridioides diffi cile DNA [Presence] in Unspecified specimen by LUIS ALFREDO with probe detection [facility] End: 03-01-2024 COLONOSCOPY DIAGNOSTIC COLONOSCOPY DIAGNOSTIC Endoscopy Routine Altered bowel habits 1 Occurrences starting 03/01/2023 until 03/01/2024 [facility] Work Phone: Comment on above: 1 Occurrences starting 03/01/2023 until 03/01/2024 Comprehensive metabo lic 2000 panel - Serum or Plasma [facility] Creatinine [Moles/vo lume] in Serum or Plasma [facility] CT Abdomen and Pelvi s W contrast IV [facility] Cytoplasmic ANCA Screen [facility] End: 06-25-2025 DBT Breast - bilateral screening BI SCREENING W [facility]UL[facility] Radiology Routine Encounter for screening mammogram for breast cancer 1 Occurrences starting 05/26/2024 until 06/25/2025 [facility] Work Phone: Comment on above: 1 Occurrences starting 05/26/2024 until 06/25/2025 Erythrocyte mean cor puscular volume determination [facility] Ferritin [Mass/volum e] in Serum or Plasma [facility] Gamma glutamyl trans ferase measurement [facility] Giardia lamblia Ag [Presence] in Stool by Immunoassay [facility] Glucose [Mass/volume ] in Serum or Plasma [facility] Hematocrit [Volume F raction] of Blood [facility] Hemoglobin [Mass/vol ume] in Blood [facility] Hemoglobin A1c/Hemoglobin.total in Blood [facility] Hepatitis B virus blancas rface Ab [Presence] in Serum [facility] Hepb vaccine adult 3 dose schedule for im use HEPATITIS B VACCINE, ADULT AGE 20+, IM Immunization/Injection Routine Encounter for immunization Ordered: 12/27/2021 [facility] Work Phone: Comment on above: Ordered: 12/27/2021 End: 04-18-2023 HOME SLEEP APNEA TEST (HSAT) HOME SLEEP APNEA TEST (HSAT) Procedures Routine Sleep apnea, unspecified type 1 Occurrences starting 04/18/2022 until 04/18/2023 [facility] Work Phone: Comment on above: 1 Occurrences starting 04/18/2022 until 04/18/2023 End: 08-28-2024 HOME SLEEP APNEA TEST (HSAT) HOME SLEEP APNEA TEST (HSAT) Procedures Routine Essential hypertension, benign Snoring Witnessed episode of apnea Other fatigue 1 Occurrences starting 08/29/2023 until 08/28/2024 [facility] Work Phone: Comment on above: 1 Occurrences starting 08/29/2023 until 08/28/2024 Iron and Iron bindin g capacity panel - Serum or Plasma [facility] Leukocytes [#/volume ] in Blood [facility] Lipid 1996 panel - S ana or Plasma [facility] Magnesium measurement [facility] End: 01-30-2024 BI SCREENING W GIULIA BI SCREENING W GIULIA Radiology Routine Screening mammogram for breast cancer 1 Occurrences starting 12/31/2022 until 01/30/2024 [facility] Work Phone: Comment on above: 1 Occurrences starting 12/31/2022 until 01/30/2024 Mean corpuscular hem oglobin concentration determination [facility] Mean corpuscular hem oglobin determination [facility] Measurement of renal function [facility] Neutrophil count [facility] Neutrophil percent differential count [facility] Parathyroid hormone measurement [facility] Patient Education [facility] Work Phone: Patient referral [facility] Work Phone: Platelets [#/volume] in Blood [facility] End: 10-21-2024 Polysomnogram POLYSOMNOGRAM (PSG) Procedures Routine Essential hypertension, benign Observed sleep apnea Has daytime drowsiness Loud snoring 1 Occurrences starting 10/22/2023 until 10/21/2024 [facility] Work Phone: Comment on above: 1 Occurrences starting 10/22/2023 until 10/21/2024 Potassium [Moles/vol ume] in Serum or Plasma [facility] [facility] Procedure [facility] Protein measurement [facility] Prothrombin time [facility] PT PLAN OF CARE CERTIFICATION PT PLAN OF CARE CERTIFICATION Procedures Routine Contusion of lower back, subsequent encounter Ordered: 10/20/2021 [facility] Work Phone: Comment on above: Ordered: 10/20/2021 End: 12-15-2023 [facility] spine cervical 4 or 5 views XR CERV OTHER 4V AP/LAT/FLX/EXT Radiology Routine Cervical radiculopathy 1 Occurrences starting 11/15/2022 until 12/15/2023 [facility] Work Phone: Comment on above: 1 Occurrences starting 11/15/2022 until 12/15/2023 [facility] spine cervical 4 or 5 views XR CERV OTHER 4V AP/LAT/FLX/EXT Radiology Routine Cervical radiculopathy 11/15/2022 11:47 AM EDT [facility] Work Phone: End: 07-08-2023 [facility] spine lumbosacral 2/3 views XR LUMBAR GENERAL 3V AP/LAT/L5-S1 Radiology Routine Chronic right-sided low back pain without sciatica 1 Occurrences starting 06/08/2022 until 07/08/2023 [facility] Work Phone: Comment on above: 1 Occurrences starting 06/08/2022 until 07/08/2023 Radiologic exam ches t 2 views XR CHEST 2V FRONTAL/LAT Radiology Routine SOB (shortness of breath) Ordered: 12/31/2022 [facility] Work Phone: Comment on above: Ordered: 12/31/2022 Red blood cell count [facility] Red cell distributio n width determination [facility] Serum inorganic phos phate measurement [facility] Sodium [Moles/volume ] in Serum or Plasma [facility] Thyroid stimulating hormone measurement [facility] Urea nitrogen [Mass/ volume] in Serum or Plasma [facility] Vitamin D, 25-hydrox y measurement [facility] End: 10-11-2022 XR ANKLE GENERAL 3V AP/LAT/OBL LEFT XR ANKLE GENERAL 3V AP/LAT/OBL LEFT Radiology Routine Acute left ankle pain 1 Occurrences starting 09/11/2021 until 10/11/2022 [facility] Work Phone: Comment on above: 1 Occurrences starting 09/11/2021 until 10/11/2022 End: 08-13-2025 XR Knee - left 4 Views XR KNEE GENERAL 4V AP BOTH/PA BOTH/LAT/MERC LEFT Radiology Routine Chronic pain of left knee 1 Occurrences starting 07/14/2024 until 08/13/2025 [facility] Work Phone: Comment on above: 1 Occurrences starting 07/14/2024 until 08/13/2025 XR Knee - left 4 Views XR KNEE G ENERAL 4V AP BOTH/PA BOTH/LAT/MERC LEFT Radiology Routine Chronic pain of left knee 07/22/2024 9:12 AM EDT [facility] Work Phone: End: 08-27-2025 XR Knee - right 4 Views XR KNEE GENERAL 4V AP BOTH/PA BOTH/LAT/MERC RIGHT Radiology Routine Chronic pain of right knee 1 Occurrences starting 07/28/2024 until 08/27/2025 [facility] Work Phone: Comment on above: 1 Occurrences starting 07/28/2024 until 08/27/2025 XR Sacrum and Coccyx 3 Views XR SACRUM/COCCYX 3V AP/LAT Radiology STAT Traumatic coccydynia Status post fall Ordered: 05/20/2023 [facility] Work Phone: Comment on above: Ordered: 05/20/2023 [facility] Immunizations Immunization Date Immunization Notes Care Provider [facility] 12-16-2020 COVID-19 vaccine, ag e 12+ yr (PFIZER-BIONTECH - PURPLE TOP) Julita Collins MD Work Phone: [facility] 11-25-2020 COVID-19 vaccine, ag e 12+ yr (PFIZER-BIONTECH - PURPLE TOP) Julita Collins MD Work Phone: [facility] 03-09-2016 influenza virus vaccine, unspecified formulation Branden Martinez PT Work Phone: [facility] 06-15-2009 tetanus toxoid, redu meredith diphtheria toxoid, and acellular pertussis vaccine, adsorbed Juliat Collins MD Work Phone: [facility] 01-06-2009 pneumococcal polysaccharide vaccine, 23 valent Julita Collins MD Work Phone: [facility] NEGATED: Highlighted row has not occurred!12-27-2021 hepatitis B vaccine, adult dosage Julita Collins MD Work Phone: [facility] Work Phone: Comment on above: Deferred: OTHER Payers Date Payer Category Payer Self-pay [id number] 2023 Unknown [id number] 2022 Medicaid [id number] 1970 Unknown [id number] 2.16.8 [id number] 1970 Unknown [id number] 2.16.8 [id number] 1970 Unknown [id number] 2.16.8 [id number] 1970 Unknown [id number] 2.16.8 [id number] Unknown [facility] [id number] Unknown [id number] 2.16.8 [id number] Unknown [id number] 2.16.8 40.1.077026.3.579.2.462 Unknown [id number] 2.16.8 40.1.645541.3.579.2.462 Unknown [id number] 2.16.8 40.1.960006.3.579.2.462 Unknown [id number] 2.16.8 40.1.601175.3.579.2.462 Unknown [id number] 2.16.8 40.1.370266.3.579.2.462 Unknown [id number] 2.16.8 40.1.937027.3.579.2.462 Unknown [id number] 2.16.8 40.1.810910.3.579.2.462 Unknown [id number] 2.16.8 40.1.949271.3.579.2.462 Unknown [id number] 2.16.8 40.1.985889.3.579.2.462 Unknown [id number] 2.16.8 40.1.100286.3.579.2.462 Unknown [id number] 2.16.8 40.1.606876.3.579.2.462 Unknown [id number] 2.16.8 40.1.141920.3.579.2.462 Unknown [id number] 2.16.8 40.1.460842.3.579.2.462 Unknown [id number] 2.16.8 40.1.137727.3.579.2.462 Unknown [id number] 2.16.8 40.1.057656.3.579.2.462 Unknown [id number] 2.16.8 [id number] Social History Date Type Detail Facility Start: 09-03-2014 End: 01-17-2023 Tobacco smoking status NHIS Never smoked tobacco [facility] Start: 06-22-2021 End: 10-22-2023 Alcohol intake Current non-drinker of alcohol (finding) [facility] Start: 01-13-2020 End: 03-18-2022 History SDOH Alcohol Frequency 1 [facility] Start: 01-13-2020 History SDOH Alcohol Std Drinks 98 [facility] Start: 01-26-2020 History SDOH Social Connections Phone 4 [facility] Start: 01-26-2020 End: 03-18-2022 History SDOH Social Connections Get Together 2 [facility] Start: 01-13-2020 End: 03-18-2022 History SDOH Social Connections Living 5 [facility] Start: 01-13-2020 Education 12 [facility] Start: 1970 Sex Assigned At Not on file [facility] Start: 02-28-2021 End: 12-27-2021 Exposure to SARS-CoV-2 (event) Not sure [facility] Start: 08-15-2021 End: 09-11-2021 Exposure to SARS-CoV-2 (event) Unable to assess [facility] Tobacco smoking status Smokes to bacco daily (finding) [facility] Sex Assigned At Sex [facility] Start: 09-03-2014 Tobacco use and exposure Smoke less tobacco non-user [facility] Work Phone: Start: 12-06-2021 End: 07-18-2023 Tobacco smoking status NHIS Unknown if ever smoked [facility] Start: 04-14-2016 None [facility] Start: 05-27-2015 With Family [facility] Start: 03-20-2018 Cigarettes [facility] Start: 1970 Sex Assigned At Female W [facility] Start: 03-18-2022 History SDOH Alcohol Std Drinks 0 [facility] Start: 03-18-2022 History SDOH Social Connections Phone 3 [facility] Start: 03-18-2022 End: 08-31-2022 History of Social function [facility] Start: 03-18-2022 End: 08-31-2022 Social connection and isolation panel [facility] Do you belong to any clubs or organizations such as taoism groups, unions, fraternal or athletic groups, or school groups? No [facility] Are you now , , , , never or living with a partner? [facility] How often to you hav e a drink containing alcohol? Never [facility] How many standard dr inks containing alcohol do you have on a typical day? Patient does not drink [facility] Do you feel stress - tense, restless, nervous, or anxious, or unable to sleep at night because your mind is troubled all the time - these days [OSQ] Not at all [facility] (I/We) worried wheth er (my/our) food would run out before (I/we) got money to buy more. Never true [facility] Start: 06-17-2024 End: 08-17-2024 Tobacco smoking status NHIS Ex-smoker (finding) [facility] Start: 06-18-2024 End: 07-28-2024 Sex Female (finding) [facility] Functional Status Date Assessment Result Facility 02-02-2023 Functional Status Independent [place] 02-02-2023 Functional Status Repositions self [facility] 01-22-2023 Functional Status Independent [place] 01-22-2023 Functional Status Standard Safet y ID band on, Allergy Band on, Call device within reach, Bed in low position, Wheels locked, Upper/Half-Length side-rails up, Phone within reach, personal items within reach [facility] 01-17-2023 Functional Status Up ad vivek [place] 01-17-2023 Functional Status Standard Safet y ID band on, Call device within reach, Bed in low position, Wheels locked, Upper/Half-Length side-rails up [facility] 09-22-2021 Functional Status Standard Safet y ID band on, Allergy Band on, Call device within reach, Bed in low position, Wheels locked, Upper/Half-Length side-rails up, Bedside Cart Locked, Visitor at bedside, Safety level maintained [facility] 10-20-2014 Are you deaf, or do you have serious difficulty hearing No 10/20/2014 2:53 PM EDT Marian Spangler Ma No [facility] 10-20-2014 Are you blind, or do you have serious difficulty seeing, even when wearing glasses No 10/20/2014 2:53 PM EDT Marian Spangler Ma No [facility] 10-20-2014 Do you have serious difficulty walking or climbing stairs Yes 10/20/2014 2:53 PM EDT Marian Spangler Ma Yes [facility] 10-20-2014 Do you have difficul ty dressing or bathing No 10/20/2014 2:53 PM EDT Marian Spangler Ma No [facility] 10-20-2014 Because of a physica l, mental, or emotional condition, do you have difficulty doing errands alone such as visiting a physician's office or shopping Yes 10/20/2014 2:53 PM EDT Marian Spangler Ma Yes [facility] Mental Status Date Assessment Result Facility 07-18-2023 Cognitive function Level Of Cons ciousness Awake;Alert;Appropriate;Fol lows Commands [facility] Work Phone: 02-02-2023 Mental Status Orientation Oriented x 4 [facility] 01-22-2023 Mental Status Orientation Oriented x 4 [facility] 01-22-2023 Mental Status [facility] 01-17-2023 Mental Status Orientation Oriented x 4 [facility] 01-17-2023 Mental Status [facility] 09-22-2021 Mental Status Orientation Oriented x 4 [facility] 10-20-2014 Because of a physica l, mental, or emotional condition, do you have serious difficulty concentrating, remembering, or making decisions No 10/20/2014 2:53 PM EDT Marian Spangler Ma No [facility] Clinical Notes 09-03-2014 to 09-28-2024 Telephone Encounter - Claribel Harrell RN - 09/28/2024 10:48 AM EDTTelephone Encounter - Claribel Harrell RN - 09/28/2024 10:48 AM EDTTelephone Encounter - Deena Youssef LPN - 08/04/2024 1:05 PM EDT Note Date & Type Note Facility 09-28-2024 Telephone encount er Note Patient reports that she had all her medications transferred from [facility] to [facility] months ago. Patient states that since [facility] is closing she is needing her medications to be sent back to [facility]. Patient reports that [facility] cannot call [facility] to get prescriptions. Patient asking if provider can send in prescriptions to [facility]? The patient has been identified by name and date of : Yes Caregiver verified no other encounters exist for this prescription request: Yes Caregiver confirmed with patient/requestor that no other refills are due, in the near future, with this provider at this time: Yes The last office visit in the department: 07/14/2024 Does the patient have a future office visit with this provider/department: Yes 10/05/2024 Requested Prescriptions Pending Prescriptions Disp Refills metoprolol succinate ER (TOPROL XL) 100 mg 90 tablet 1 Sig: Take 1 tablet by mouth once daily. sertraline (ZOLOFT) 50 mg tablet 90 tablet 3 Sig: Take 1 tablet by mouth once daily. losartan (COZAAR) 100 mg tablet 30 tablet 11 Sig: Take 1 tablet by mouth once daily. DOSE CHANGE TAKE ONE DAILY Claribel Harrell RN September 28, 2024 10:50 AM [facility] 09-28-2024 Miscellaneous Notes Formattin g of this note is different from the original. Patient reports that she had all her medications transferred from [facility] to [facility] months ago. Patient states that since [facility] is closing she is needing her medications to be sent back to [facility]. Patient reports that [facility]. Patient asking if provider can send in prescriptions to [facility] The patient has been identified by name and date of : Yes Caregiver verified no other encounters exist for this prescription request: Yes Caregiver confirmed with patient/requestor that no other refills are due, in the near future, with this provider at this time: Yes The last office visit in the department: 07/14/2024 Does the patient have a future office visit with this provider/department: Yes 10/05/2024 Requested Prescriptions Pending Prescriptions Disp Refills metoprolol succinate ER (TOPROL XL) 100 mg 90 tablet 1 Sig: Take 1 tablet by mouth once daily. sertraline (ZOLOFT) 50 mg tablet 90 tablet 3 Sig: Take 1 tablet by mouth once daily. losartan (COZAAR) 100 mg tablet 30 tablet 11 Sig: Take 1 tablet by mouth once daily. DOSE CHANGE TAKE ONE DAILY Claribel Harrell RN September 28, 2024 10:50 AM documented in this encounter [facility] 09-18-2024 Telephone encount er Note Patient was notified Gisela Quintero MA [facility] 09-18-2024 Miscellaneous Notes Formattin g of this note might be different from the original. Patient was notified Gisela Quintero MA We will discuss in the upcoming visit Patient calling and asking if provider can order a bone density test. Patient reports that Dr. Jackson, from [facility] is recommending patient get a bone density test done. Patient needs medication sent to [facility]. The patient has been identified by name and date of : Yes Caregiver verified no other encounters exist for this prescription request: Yes Caregiver confirmed with patient/requestor that no other refills are due, in the near future, with this provider at this time: Yes The last office visit in the department: 07/14/2024 Does the patient have a future office visit with this provider/department: Yes 10/05/2024 Requested Prescriptions Pending Prescriptions Disp Refills ergocalciferol 50,000 unit capsule (VITAMIN D2, DRISDOL) 24 capsule 1 Sig: Take 1 capsule by mouth two times a week. Claribel Harrell RN September 17, 2024 3:19 PM documented in this encounter [facility] 09-18-2024 Telephone encount er Note We will discuss in the upcoming visit [facility] 09-17-2024 Telephone encount er Note Patient calling and asking if provider can order a bone density test. Patient reports that Dr. Jackson, from [facility] is recommending patient get a bone density test done. Patient needs medication sent to [facility]. The patient has been identified by name and date of : Yes Caregiver verified no other encounters exist for this prescription request: Yes Caregiver confirmed with patient/requestor that no other refills are due, in the near future, with this provider at this time: Yes The last office visit in the department: 07/14/2024 Does the patient have a future office visit with this provider/department: Yes 10/05/2024 Requested Prescriptions Pending Prescriptions Disp Refills ergocalciferol 50,000 unit capsule (VITAMIN D2, DRISDOL) 24 capsule 1 Sig: Take 1 capsule by mouth two times a week. Claribel Harrell RN September 17, 2024 3:19 PM [facility] 09-15-2024 Radiology Diagnostic study note [facility] [address] [place], [place] [address] L/S Spine Min 4 Views MR#: [id number] Acct: [id number] Name: GILMA GARCIA Rep #: [id number] : 1970 F [id number] From: Karen Boswell MD PCP: Dr. Julita Collins MD Status: REG Rebecca LUNA Study:L/S Spine Min 4 Views Date of Exam: 09/14/24 Exam# [id number] Ordering Dr: Lisa Zhou D.C. PROCEDURE: L/S SPINE MIN 4 VIEWS 09/14/2024 REASON FOR EXAM: LUMBAR STRAIN TECHNIQUE: Standing AP view(s) of the thoracic and lumbar spine. COMPARISON: None. FINDINGS: Mildly exaggerated lumbar lordosis. Mild S shaped degenerative scoliosis. There are diffuse spondylotic changes. Findings are demonstrated to by diffuse disc space narrowing, osteophyte formation and degenerative endplate sclerosis. There is diffuse facet joint arthropathy with secondary bilateral neural foramina narrowing. No fracture or dislocation is seen. No aggressive lytic or blastic bony lesion is noted. RAD/L/S Spine Min 4 Views IMPRESSION: Spondylosis. No pars defect on the oblique images. Reading [facility] CC: DC Dr. Mak Zhou; Dr. Julita Collins MD ~ Shop Lead: Signed [facility] 09-14-2024 Progress note [facility] 08-04-2024 Telephone encounter Note Medication pended Deena Youssef LPN August 04, 2024 1:05 PM [facility] 08-04-2024 Miscellaneous Notes Medication pended Deena Youssef LPN August 04, 2024 1:05 PM documented in this encounter [facility] 07-31-2024 Progress note Formatting of t his note might be different from the original. Pt reviewed providers message re: results via [employer] on 07/30/24 Nallely Hermosillo MA [facility] 07-31-2024 Miscellaneous Notes Pt reviewed providers message re: results via [employer] on 07/30/24 Nallely Hermosillo MA documented in this encounter [facility] 07-24-2024 Radiology Diagnostic study note [facility] [address] [place] [address] Abdomen Single View MR#: [id number] Acct: [id number] Name: GILMA GARCIA Rep #: [id number] : 1970 F [id number] From: Karen Boswell MD PCP: Dr. Julita Collins MD Status: REG C CHERYL Study:Abdomen Single View Date of Exam: 07/23/24 Exam# [id number] Ordering Dr: Jeannette Horvath PROCEDURE: ABDOMEN SINGLE VIEW 07/23/2024 REASON FOR EXAM: DAY 3 SITZ MARKER TECHNIQUE: Single view abdomen. COMPARISON: CT scan on 03/30/2023. FINDINGS: Four Sitz markers are noted at the topography of the rectosigmoid colon. Mild amount of fecal residue in the large bowels. Bilateral tubal clips are again noted in the pelvis. Normal visualized lung bases. There is an unremarkable bowel gas pattern. There is no demonstrated free abdominal air. Normal visualized liver. Normal visualized spleen. Normal visualized kidneys. The soft tissue structures of the pelvis are unremarkable. Mild diffuse spondylosis. RAD/Abdomen Single View IMPRESSION: Four Sitz markers are noted at the topography of the rectosigmoid colon. Mild amount of fecal residue in the large bowels. Bilateral tubal clips are again noted in the pelvis. Reading [facility] CC: JOAQUIN Horvath; Dr. Julita Collins MD ~ Shop Lead: Signed [facility] 07-22-2024 Telephone encounter Note Patient needs a new order for xray of knee, originally ordered on 07/14/24. Order Thank you Deena Youssef LPN July 22, 2024 8:53 AM [facility] 07-22-2024 Miscellaneous Notes Patient needs a new order for xray of knee, originally ordered on 07/14/24. Order Thank you Deena Youssef LPN July 22, 2024 8:53 AM documented in this encounter [facility] 07-22-2024 History of Present illness Narrative Radiology Service Progress Note PATIENT NAME: Gilma Garcia DATE OF SERVICE: July 22, 2024 TIME: 8:59 AM PATIENT IDENTITY VERIFICATION COMPLETED USING TWO (2) IDENTIFIERS: Name and Date of confirmed by patient verbally. FALL SCREENING: Has the patient had 2 falls in the last year or 1 fall with injury or currently using an Ambulatory Assistive Device (Walker, Cane, Wheelchair, Crutches, etc.)? No PATIENT GENDER DATA: Assigned female at . status: : No status: NO. PATIENT RELEVANT IMPLANT DATA REVIEWED: Yes PATIENT PRESENTS WITH AN IMPLANTABLE OR ATTACHED NATIONAL FLATBED TRUCK DRIVER: No RADIOLOGY DEPARTMENT: General X-ray: Exam(s) Completed: Lower Extremity X-Ray(s): Knee, AP / Lat / Tunne / Merchant Left PERIPHERAL IV DATA: Not applicable SIGNED BY: RT Tess(Jf) July 22, 2024 8:59 AM documented in this encounter [facility] 07-22-2024 Note HNO ID: [id number] Author: JENS RAMIREZ RT(R) Service: ? Author Type: Front Desk Representative Type: Progress Notes Filed: 07/22/2024 09:11 Note Text: Radiology Service Progress Note PATIENT NAME: Gilma Garcia DATE OF SERVICE: July 22, 2024 TIME: 8:59 AM PATIENT IDENTITY VERIFICATION COMPLETED USING TWO (2) IDENTIFIERS: Name and Date of confirmed by patient verbally. FALL SCREENING: Has the patient had 2 falls in the last year or 1 fall with injury or currently using an Ambulatory Assistive Device (Walker, Cane, Wheelchair, Crutches, etc.)? No PATIENT GENDER DATA: Assigned female at . status: : No status: NO. PATIENT RELEVANT IMPLANT DATA REVIEWED: Yes PATIENT PRESENTS WITH AN IMPLANTABLE OR ATTACHED NATIONAL FLATBED TRUCK DRIVER: No RADIOLOGY DEPARTMENT: General X-ray: Exam(s) Completed: Lower Extremity X-Ray(s): Knee, AP / Lat / Tunne / Merchant Left PERIPHERAL IV DATA: Not applicable SIGNED BY: RT Tess(R) July 22, 2024 8:59 AM [facility] 07-20-2024 History of Present illness Narrative Radiology Service Progress Note PATIENT NAME: Gilma Garcia DATE OF SERVICE: July 20, 2024 TIME: 7:59 AM PATIENT IDENTITY VERIFICATION COMPLETED USING TWO (2) IDENTIFIERS: Name and Date of confirmed by patient verbally. FALL SCREENING: Has the patient had 2 falls in the last year or 1 fall with injury or currently using an Ambulatory Assistive Device (Walker, Cane, Wheelchair, Crutches, etc.)? No PATIENT GENDER DATA: Assigned female at . status: : No status: NO. PATIENT RELEVANT IMPLANT DATA REVIEWED: Not Applicable PATIENT PRESENTS WITH AN IMPLANTABLE OR ATTACHED NATIONAL FLATBED TRUCK DRIVER: No RADIOLOGY DEPARTMENT: Mammography PERIPHERAL IV DATA: Not applicable SIGNED BY: Zion Landrum July 20, 2024 7:59 AM documented in this encounter [facility] 07-20-2024 Note HNO ID: [id number] Author: AURELIA MCDONALD Mammo Tech Service: ? Author Type: Technologist Type: Progress Notes Filed: 07/20/2024 07:59 Note Text: Radiology Service Progress Note PATIENT NAME: Gilma Garcia DATE OF SERVICE: July 20, 2024 TIME: 7:59 AM PATIENT IDENTITY VERIFICATION COMPLETED USING TWO (2) IDENTIFIERS: Name and Date of confirmed by patient verbally. FALL SCREENING: Has the patient had 2 falls in the last year or 1 fall with injury or currently using an Ambulatory Assistive Device (Walker, Cane, Wheelchair, Crutches, etc.)? No PATIENT GENDER DATA: Assigned female at . status: : No status: NO. PATIENT RELEVANT IMPLANT DATA REVIEWED: Not Applicable PATIENT PRESENTS WITH AN IMPLANTABLE OR ATTACHED NATIONAL FLATBED TRUCK DRIVER: No RADIOLOGY DEPARTMENT: Mammography PERIPHERAL IV DATA: Not applicable SIGNED BY: Zion Landrum July 20, 2024 7:59 AM [facility] 07-14-2024 Instructions Julita Collins MD - 07/14/2024 9:35 AM EDT We discussed your knee pain and instability: - You reported that your left knee has been popping, giving out, and causing pain, especially when walking up and down stairs. This has been ongoing for several months. - I performed a knee exam, which showed no effusion or significant abnormalities, but you experience pain with weight-bearing activities. - I recommend starting physical therapy to strengthen your knee and improve stability. A referral has been placed. - Using a knee brace (such as a sleeve) may help reduce pain and prevent instability. - I ordered an X-ray of your left knee to evaluate for degenerative changes. Please complete this as soon as possible. We discussed your liver condition: - You shared that you have been diagnosed with liver fibrosis and fatty liver disease by your manager medicare. You are experiencing pain, difficulty with bowel movements, and occasional bleeding. - You mentioned that your C-reactive protein (CRP) levels were elevated, indicating inflammation, but the exact cause is unclear. - You are scheduled to follow up with your manager medicare on May 22 to discuss further treatment and management. You also mentioned plans to see Dr. Mo for additional evaluation. We discussed your blood pressure: - You reported that your blood pressure is usually well-controlled at home, with recent readings around 130/80. However, you did not take your blood pressure medication this morning. - Please continue taking your blood pressure medication as prescribed and monitor your blood pressure regularly at home. Bring your readings to your next visit. We discussed your overall health: - You recently had blood work done, including an A1c test. I will review these results once they are available. - You reported difficulty sleeping and occasional back pain, but no chronic or severe symptoms were noted. Follow-up plan: - I would like to see you back in 6 weeks to review your knee X-ray results, assess your progress with physical therapy, and discuss any updates from your manager medicare regarding your liver condition. - At your next visit, please ensure you have taken your blood pressure medication beforehand, and bring any recent blood pressure readings. If you experience worsening knee pain, instability, or any new concerning symptoms, please contact our office. documented in this encounter [facility] 07-14-2024 Note HNO ID: [id number] Author: JULITA COLLINS MD Service: ? Author Type: Physician Type: Progress Notes Filed: 07/14/2024 20:27 Note Text: Reason for Visit Knee pain FELIPE Dillard is a 54-year-old female with a history of HTN, arthritis, and liver fibrosis, presenting with left knee pain and instability. Gilma reports several months of left knee pain and instability, describing a popping sensation and episodes of the knee giving out, particularly when ascending or descending stairs. She denies any recent falls due to this issue but mentions catching herself to prevent falls. The right knee is asymptomatic. She has attempted exercises to alleviate the pain without success and has tried ibuprofen and Advil, which provided no relief. She denies current use of a knee brace. She also reports intermittent back pain, particularly in the mornings, which she attributes to a previous injury and arthritis diagnosed years ago. She denies sciatica, chronic back pain, numbness, or tingling. Additionally, she has a history of liver fibrosis, diagnosed after an ultrasound in March following symptoms of abdominal pain and constipation. She is under the care of a manager medicare and has an upcoming appointment next week. She reports severe constipation, unrelieved by Linzess, and has experienced fecal incontinence. She is uncertain if these symptoms are related to her liver condition. She mentions a history of elevated C-reactive protein levels, with a recent measurement of 17 mg/L. She is currently not taking any medication for her liver condition due to adverse effects. Gilma has decided to apply for Social Security and not return to work due to her health issues. She reports poor sleep and did not take her antihypertensive medication this morning. She monitors her blood pressure at home, with recent readings around 130/80 mmHg. She had blood work done this morning, including an A1c test. Social History Tobacco Use Smoking status: Never Smokeless tobacco: Never Vaping Use Vaping status: Never Used Substance Use Topics Alcohol use: No Drug use: No Past medical history, appointments, medications, allergies reviewed. Pertinent Lab/Diagnostic Studies are reviewed and discussed today Current Outpatient Medications: metoprolol succinate ER (TOPROL XL) 100 mg sertraline (ZOLOFT) 50 mg tablet losartan (COZAAR) 100 mg tablet ergocalciferol 50,000 unit capsule (VITAMIN D2, DRISDOL) ibuprofen (MOTRIN) 800 mg tablet acetaminophen (TYLENOL EXTRA STRENGTH) 500 mg tablet diclofenac (VOLTAREN ARTHRITIS PAIN) 1 % topical gel Health Maintenance Depression Screening Anxiety Screening HIV Screening BP Controlled (<130/80) Hepatitis B Vaccine(1 of 3 - 19+ 3-dose series) Colorectal Cancer Screening DTaP,Tdap,Td Vaccine(2 - Td or Tdap) Shingrix Vaccine(1 of 2) Pneumococcal Vaccine: 50+(2 of 2 - PCV) Influenza Vaccine(1) Covid-19 Vaccine( season) Mammogram Screening@ Review Of Systems Constitutional: (+) sleep disturbance Gastrointestinal: (+) painful bowel movements, (+) rectal bleeding, (+) fecal incontinence Musculoskeletal: (+) left knee pain, (+) left knee instability, (+) back pain Skin: (+) dryness Neurological: (-) numbness/tingling, (-) sciatica Physical Exam BP 129/83 Pulse 72 Wt 85.8 kg (189 lb 3.2 oz) LMP 09/26/2014 (Exact Date) SpO2 97% BMI 32.70 kg/m? GENERAL: NAD, alert and oriented. SKIN: Dry skin noted on lower extremities, no rash or skin lesions. HEAD: Normocephalic. EYES: PERRLA, EOMI, conjunctiva clear. NECK: Supple, no lymphadenopathy, normal thyroid, no carotid bruits. LUNGS: Clear to auscultation bilaterally, no wheezes/rhonchi/rales. HEART: Regular rate and rhythm, no murmurs. No ectopy. EXTREMITIES: No deformities, no skin discoloration, no edema. Left knee with no effusion, full range of motion, no pain on palpation of joint line. NEURO: Awake, alert and oriented x3, cranial nerves II-XII grossly intact, normal gait, no involuntary motions. Labs: - CRP: 17 (elevated) - Stool analysis: No abnormal findings Imaging: - Ultrasound (liver): Findings consistent with moderate to severe hepatic steatosis or fibrosis Assessment and Plan 1. Chronic pain of left knee (M25.562) Left knee pain with episodes of popping and giving out, particularly when ascending and descending stairs. No effusion or significant tenderness on examination. Suspected degenerative changes. - Ordered X-ray of the left knee to evaluate for degenerative changes. - Recommended use of a knee brace to provide support and reduce pain. - Referred to physical therapy for strengthening and stabilization exercises. - Advised intermittent use of Motrin for pain management. 2. Fatty liver (K76.0) Diagnosed with hepatic steatosis and fibrosis. Reports abdominal and back pain, as well as bowel movement irregularities. Recent CRP level el (more content not included)... [facility] 07-14-2024 History of Present illness Narrative Reason for Visit Knee pain HPI Gilma is a 54-year-old female with a history of HTN, arthritis, and liver fibrosis, presenting with left knee pain and instability. Gilma reports several months of left knee pain and instability, describing a popping sensation and episodes of the knee giving out, particularly when ascending or descending stairs. She denies any recent falls due to this issue but mentions catching herself to prevent falls. The right knee is asymptomatic. She has attempted exercises to alleviate the pain without success and has tried ibuprofen and Advil, which provided no relief. She denies current use of a knee brace. She also reports intermittent back pain, particularly in the mornings, which she attributes to a previous injury and arthritis diagnosed years ago. She denies sciatica, chronic back pain, numbness, or tingling. Additionally, she has a history of liver fibrosis, diagnosed after an ultrasound in March following symptoms of abdominal pain and constipation. She is under the care of a manager medicare and has an upcoming appointment next week. She reports severe constipation, unrelieved by Linzess, and has experienced fecal incontinence. She is uncertain if these symptoms are related to her liver condition. She mentions a history of elevated C-reactive protein levels, with a recent measurement of 17 mg/L. She is currently not taking any medication for her liver condition due to adverse effects. Gilma has decided to apply for Social Security and not return to work due to her health issues. She reports poor sleep and did not take her antihypertensive medication this morning. She monitors her blood pressure at home, with recent readings around 130/80 mmHg. She had blood work done this morning, including an A1c test. Social History Tobacco Use Smoking status: Never Smokeless tobacco: Never Vaping Use Vaping status: Never Used Substance Use Topics Alcohol use: No Drug use: No Past medical history, appointments, medications, allergies reviewed. Pertinent Lab/Diagnostic Studies are reviewed and discussed today Current Outpatient Medications: metoprolol succinate ER (TOPROL XL) 100 mg sertraline (ZOLOFT) 50 mg tablet losartan (COZAAR) 100 mg tablet ergocalciferol 50,000 unit capsule (VITAMIN D2, DRISDOL) ibuprofen (MOTRIN) 800 mg tablet acetaminophen (TYLENOL EXTRA STRENGTH) 500 mg tablet diclofenac (VOLTAREN ARTHRITIS PAIN) 1 % topical gel Health Maintenance Depression Screening Anxiety Screening HIV Screening BP Controlled (<130/80) Hepatitis B Vaccine(1 of 3 - 19+ 3-dose series) Colorectal Cancer Screening DTaP,Tdap,Td Vaccine(2 - Td or Tdap) Shingrix Vaccine(1 of 2) Pneumococcal Vaccine: 50+(2 of 2 - PCV) Influenza Vaccine(1) Covid-19 Vaccine( season) Mammogram Screening@ Review Of Systems Constitutional: (+) sleep disturbance Gastrointestinal: (+) painful bowel movements, (+) rectal bleeding, (+) fecal incontinence Musculoskeletal: (+) left knee pain, (+) left knee instability, (+) back pain Skin: (+) dryness Neurological: (-) numbness/tingling, (-) sciatica Physical Exam BP 129/83 Pulse 72 Wt 85.8 kg (189 lb 3.2 oz) LMP 09/26/2014 (Exact Date) SpO2 97% BMI 32.70 kg/m GENERAL: NAD, alert and oriented. SKIN: Dry skin noted on lower extremities, no rash or skin lesions. HEAD: Normocephalic. EYES: PERRLA, EOMI, conjunctiva clear. NECK: Supple, no lymphadenopathy, normal thyroid, no carotid bruits. LUNGS: Clear to auscultation bilaterally, no wheezes/rhonchi/rales. HEART: Regular rate and rhythm, no murmurs. No ectopy. EXTREMITIES: No deformities, no skin discoloration, no edema. Left knee with no effusion, full range of motion, no pain on palpation of joint line. NEURO: Awake, alert and oriented x3, cranial nerves II-XII grossly intact, normal gait, no involuntary motions. Labs: - CRP: 17 (elevated) - Stool analysis: No abnormal findings Imaging: - Ultrasound (liver): Findings consistent with moderate to severe hepatic steatosis or fibrosis Assessment and Plan 1. Chronic pain of left knee (M25.562) Left knee pain with episodes of popping and giving out, particularly when ascending and descending stairs. No effusion or significant tenderness on examination. Suspected degenerative changes. - Ordered X-ray of the left knee to evaluate for degenerative changes. - Recommended use of a knee brace to provide support and reduce pain. - Referred to physical therapy for strengthening and stabilization exercises. - Advised intermittent use of Motrin for pain management. 2. Fatty liver (K76.0) Diagnosed with hepatic steatosis and fibrosis. Reports abdominal and back pain, as well as bowel movement irregularities. Recent CRP level elevated at 17 mg/L, indicating significant inflammation. - Continue follow-up with manager medicare; next appointment scheduled for the . - Awaiting further treatment plan from Dr. Mo. - Advised to avoid excessive use of Tylenol due to liver condition. 3. Hypertension, essential (I10) Blood pressure reportedly well-controlled at home, with recent readings around 130/80 mmHg. Did not take antihypertensive medication this morning. - Continue current antihypertensive regimen. - Monitor blood pressure at home and maintain a log. - Follow-up in 6 weeks to reassess blood pressure control and review knee and liver condition progress. Voice recognition software was used to compose this office note. Please excuse any unintended typographical errors. The patient consented to the use of [email or web address] software for draft documentation of the visit consistent with [facility] s Notice of Privacy Practices. Julita Collins MD documented in this encounter [facility] 06-30-2024 Note Patient Outreach (IN TMMN) GILMA GARCIA ([id number]) 1970 F Date Time Provider Department 06/30/24 JULITA COLLINS During your visit today, we recorded the following information about you: Allergies As of Date: 06/30/2024 Noted Allergy Reaction MOBIC (MELOXICAM) 10/24/2009 4 - Hives NAPROXEN 10/24/2009 8 - GI Upset PREDNISONE 11/07/2009 4 - Hives 12 - Shortness of Breath TYLENOL #3 (CODEINE) 10/24/2009 4 - Hives VICODIN (HYDROCODONE-ACETAMINOPHE* 015 8 - GI Upset Comments: Nausea Date Reviewed: 02/29/2024 Reviewed by: Shelli Nina RN - Fully Assessed Visit Diagnoses:Hypertension, essential [I10] Prediabetes [R73.03] Order(s):BASIC METABOLIC PANEL [SQBMP] Order #: [id number] FUTURE HEMOGLOBIN A1C [KZXBF7S] Order #: [id number] FUTURE Prescriptions as of 07/03/2024 - metoprolol succinate ER (TOPROL XL) 100 mg Take 1 tablet by mouth once daily. - sertraline (ZOLOFT) 50 mg tablet Take 1 tablet by mouth once daily. - losartan (COZAAR) 100 mg tablet Take 1 tablet by mouth once daily. DOSE CHANGE TAKE ONE DAILY - ergocalciferol 50,000 unit capsule (VITAMIN D2, DRISDOL) Take 1 capsule by mouth one time a week. - triamcinolone acetonide (KENALOG) 0.1 % cream Apply 1 application to affected area three times a day. Apply sparingly to area for rash/itching. - ibuprofen (MOTRIN) 800 mg tablet Take 1 tablet by mouth every 8 hours as needed for pain. Take with food. - acetaminophen (TYLENOL EXTRA STRENGTH) 500 mg tablet Take 2 tablets by mouth every 8 hours as needed for pain. - diclofenac (VOLTAREN ARTHRITIS PAIN) 1 % topical gel Apply 4 g to affected area four times daily. - polyethylene glycol 3350 (MIRALAX) 17 gram/dose powder For colonoscopy prep Problem List As Of Date 06/30/2024 Noted Resolved Hypertension, essential [I10] 10/24/2009 Chronic low back pain [M54.50, G89.29] 08/27/2014 Heavy menses [N92.0] 09/03/2014 10/20/2014 Abnormal uterine bleeding [N93.9] 09/03/2014 10/20/2014 Irregular bleeding [N92.6] 09/03/2014 10/20/2014 Mixed incontinence [N39.46] 05/11/2015 Contusion of lower back [S30.0XXA] 10/20/2021 Head injury [S09.90XA] 12/06/2021 Right shoulder pain [M25.511] 09/18/2022 Acute pain of left knee [M25.562] 12/19/2022 Acute hip pain, left [M25.552] 12/19/2022 Right wrist pain [M25.531] 01/31/2023 Altered bowel habits [R19.4] 04/25/2023 Traumatic coccydynia [M53.3] 05/29/2023 Status post fall [Z91.81] 05/29/2023 Encounter Status:Closed by EPIC, PRODUSER on 07/03/24 [facility] 06-24-2024 Radiology Diagnostic study note [facility] [address] [place] [address] ABD Limited w/ Elastography MR#: [id number] Acct: [id number] Name: GILMA GARCIA Rep #: [id number] : 1970 F 53 From: Fermin Kaur MD PCP: Dr. Julita Collins MD Status: REG C CHERYL Study:ABD Limited w/ Elastography Date of Exa m: 06/16/24 Exam# [id number] Ordering Dr: Jeannette Horvath CAR RUNNER-C PROCEDURE: ABD LIMITED W/ ELASTOGRAPHY REASON FOR EXAM: FATTY LIVER COMPARISON: March 30, 2023. TECHNIQUE: Right upper quadrant abdominal ultrasound. [employer] ElastQ Imaging shear wave elastography for non-invasive assessment of liver tissue stiffness. [employer] EPIQ Elite. FINDINGS: LIVER: Size: Unremarkable Length: 15.4 cm Echotexture: Diffusely echogenic suggesting fatty infiltration Contour: Normal Lesions: None identified Elastography: EQI Med: 10.6 kPa EQI Med Ravi: 1.87 m/s IQR/Med: 15 %* GALLBLADDER: Surgically absent. COMMON BILE DUCT: Normal it measures 6 mm.. PANCREAS: Obscured by bowel gas. Visualized portions of the right kidney are unremarkable. No right upper quadrant ascites. US/ABD Limited w/ Elastography IMPRESSION: MODERATE TO SEVERE HEPATIC FIBROSIS Diffuse fatty infiltration of the liver. Reference Values: SRU <1.37 m/s (5.7kPa): No to mild fibrosis 1.37 m/s - 2.2 m/s: Moderate to severe fibrosis >2.2 m/s (15kPa): Significant fibrosis / cirrhosis METAVIR Score F2 or higher: 1.34 m/s (5.7kPa) F3 or higher: 1.55 m/s (7.3kPa) F4: 1.80 m/s (10kPa) * If the IQR/Med is >30%, the variance in the measurements is a large and the accuracy of the measurement may be in question. Reading Location: [place] [address] CC: JOAQUIN Horvath; Dr. Julita Collins MD ~ Shop Lead: Signed [facility] 06-17-2024 Evaluation note Diagnosis Onset Date Resolution Abdominal cramping acute June 17, 2024 9:18am Abnormal CT of the abdomen acute June 17, 2024 9:18am Diarrhea acute June 17 9:18am Fecal incontinence acute June 17, 2024 9:18am Abdominal cramping acute July 20, 2024 9:59am Constipation acute July 20, 2024 9:59am Diarrhea acute July 20 9:59am Fecal incontinence acute July 20, 2024 9:59am Abdominal cramping acute August 172024 8:12am Constipation acute August 17 8:12am Dyspepsia acute August 17, 2024 8:12am Fatty liver acute August 17 8:12am Heartburn acute August 17, 2024 8:12am [facility] Work Phone: [phone]) 349-956403-12-2025 Evaluation note* Diagnosis Onset Date Resolution Status Admit Date Abdominal cramping acute June 17, 2024 9:18am Abnormal CT of the abdomen acute June 17, 2024 9:18am Diarrhea acute June 17 9:18am Fecal incontinence acute June 17, 2024 9:18am Abdominal cramping acute July 20, 2024 9:59am Constipation acute July 20, 2024 9:59am Diarrhea acute July 20 9:59am Fecal incontinence acute July 20, 2024 9:59am Abdominal cramping acute August 172024 8:12am Constipation acute August 17 8:12am Dyspepsia acute August 17, 2024 8:12am Heartburn acute August 17, 2024 8:12am Fatty liver deleted August 17 8:12am Alkaline phosphatase elevation acute September 14, 2024 7:44am Abdominal pain chronic September 14, 2024 7:44am Metabolic dysfunction-associated steatotic liver disease (MASLD) chronic September 14, 2024 7:44am [facility] Work Phone: [phone] Telephone encounter Note* Telephone Encounter - Claribel Castaneda - 06/08/2024 4:25 PM EST Spoke with patient who was driving and could not schedule. Patient stated she would call back tomorrow (06/09/24) to schedule. Claribel Castaneda [facility]03-03-2025 Miscellaneous Notes* Telephone Encounter - Claribel Castaneda - 06/08/2024 4:25 PM EST Spoke with patient who was driving and could not schedule. Patient stated she would call back tomorrow (06/09/24) to schedule. Claribel Castaneda * Telephone Encounter - Roberta Pritchard APRN.CNS - 06/08/2024 4:10 PM EST needs appt, rx sent * Telephone Encounter - Kay Hays RN - 06/08/2024 3:46 PM EST The patient has been identified by name and date of : Yes Caregiver verified no other encounters exist for this prescription request: Yes Caregiver confirmed with patient/requestor that no other refills are due, in the near future, with this provider at this time: Yes The last office visit in the department: 10/22/23 Does the patient have a future office visit with this provider/department: to be scheduled Requested Prescriptions Pending Prescriptions Disp Refills metoprolol succinate ER (TOPROL XL) 100 mg 30 tablet 11 Sig: Take 1 tablet by mouth once daily. sertraline (ZOLOFT) 50 mg tablet 90 tablet 3 Sig: Take 1 tablet by mouth once daily. Kay Hays RN [facility] encounter Note * Telephone Encounter - Roberta Pritchard APRN.CNS - 06/08/2024 4:10 PM EST needs appt, rx sent [facility]03-03-2025 Telephone encounter Note* Telephone Encounter - Kay Hays RN - 06/08/2024 3:46 PM EST The patient has been identified by name and date of : Yes Caregiver verified no other encounters exist for this prescription request: Yes Caregiver confirmed with patient/requestor that no other refills are due, in the near future, with this provider at this time: Yes The last office visit in the department: 10/22/23 Does the patient have a future office visit with this provider/department: to be scheduled Requested Prescriptions Pending Prescriptions Disp Refills metoprolol succinate ER (TOPROL XL) 100 mg 30 tablet 11 Sig: Take 1 tablet by mouth once daily. sertraline (ZOLOFT) 50 mg tablet 90 tablet 3 Sig: Take 1 tablet by mouth once daily. Kay Hays RN [facility]02-18-2025 NotePatient Outreach (INTMWS) GILMA GARCIA ([id number]) 1970 F Date Time Provider Department 05/26/24 JULITA COLLINS During your visit today, we recorded the following information about you: Allergies As of Date: 05/26/2024 Noted Allergy Reaction MOBIC (MELOXICAM) 10/24/2009 4 - Hives NAPROXEN 10/24/2009 8 - GI Upset PREDNISONE 11/07/2009 4 - Hives 12 - Shortness of Breath TYLENOL #3 (CODEINE) 10/24/2009 4 - Hives VICODIN (HYDROCODONE-ACETAMINOPHE*09/27/2014 8 - GI Upset Comments: Nausea Date Reviewed: 02/29/2024 Reviewed by: Shelli Nina RN - Fully Assessed Visit Diagnosis:Encounter for screening mammogram for breast cancer [Z12.31] Order(s):[facility] SCRE[facility] [[id number]] Order #: [id number] FUTURE Prescriptions as of 06/26/2024 - metoprolol succinate ER (TOPROL XL) 100 mg Take 1 tablet by mouth once daily. - sertraline (ZOLOFT) 50 mg tablet Take 1 tablet by mouth once daily. - losartan (COZAAR) 100 mg tablet Take 1 tablet by mouth once daily. DOSE CHANGE TAKE ONE DAILY - ergocalciferol 50,000 unit capsule (VITAMIN D2, DRISDOL) Take 1 capsule by mouth one time a week. - triamcinolone acetonide (KENALOG) 0.1 % cream Apply 1 application to affected area three times a day. Apply sparingly to area for rash/itching. - ibuprofen (MOTRIN) 800 mg tablet Take 1 tablet by mouth every 8 hours as needed for pain. Take with food. - acetaminophen (TYLENOL EXTRA STRENGTH) 500 mg tablet Take 2 tablets by mouth every 8 hours as needed for pain. - diclofenac (VOLTAREN ARTHRITIS PAIN) 1 % topical gel Apply 4 g to affected area four times daily. - polyethylene glycol 3350 (MIRALAX) 17 gram/dose powder For colonoscopy prep Problem List As Of Date 05/26/2024 Noted Resolved Hypertension, essential [I10] 10/24/2009 Chronic low back pain [M54.50, G89.29] 08/27/2014 Heavy menses [N92.0] 09/03/2014 10/20/2014 Abnormal uterine bleeding [N93.9] 09/03/2014 10/20/2014 Irregular bleeding [N92.6] 09/03/2014 10/20/2014 Mixed incontinence [N39.46] 05/11/2015 Contusion of lower back [S30.0XXA] 10/20/2021 Head injury [S09.90XA] 12/06/2021 Right shoulder pain [M25.511] 09/18/2022 Acute pain of left knee [M25.562] 12/19/2022 Acute hip pain, left [M25.552] 12/19/2022 Right wrist pain [M25.531] 01/31/2023 Altered bowel habits [R19.4] 04/25/2023 Traumatic coccydynia [M53.3] 05/29/2023 Status post fall [Z91.81] 05/29/2023 Encounter Status:Closed by EPIC, PRODUSER on 06/26/24[facility] 04-15-2024 Evaluation note* Diagnosis Onset Date Resolution Status Admit Date Abdominal cramping acute 2024 8:42am Constipation acute April 15, 2024 8:42am Diarrhea acute April 15 025 8:42am Fatty liver acute April 15, 2024 8:42am Fecal incontinence acute 2024 8:42am Abdominal cramping acute June 17, 2024 9:18am Abnormal CT of the abdomen acute June 17, 2024 9:18am Diarrhea acute June 17 9:18am Fecal incontinence acute June 17, 2024 9:18am [facility] Work Phone: 1(582) 900-497801-08-2025 Evaluation note* Diagnosis Onset Date Resolution Status Admit Date Abdominal cramping acute 2024 8:42am Constipation acute April 15, 2024 8:42am Diarrhea acute April 15, 2 025 8:42am Fatty liver acute April 15, 2024 8:42am Fecal incontinence acute 2024 8:42am Abdominal cramping acute June 17, 2024 9:18am Abnormal CT of the abdomen acute June 17, 2024 9:18am Diarrhea acute June 17 9:18am Fecal incontinence acute June 17, 2024 9:18am Abdominal cramping acute July 20, 2024 9:59am Constipation acute July 20, 2024 9:59am Diarrhea acute July 20 9:59am Fecal incontinence acute July 20, 2024 9:59am [facility] Work Phone: 1(523) 557-468311-23-2024 Telephone encounter Note* Telephone Encounter - Shelli Nina RN - 02/29/2024 3:16 PM EST Reason for Call: patient called complaining of a cough for over a week. Outcome: Advised to treat at home. Patient verbalized understanding and is agreeable to the plan. Patient had question regarding taking Mucinex; if it is ok to take with her blood pressure. Paging cone machine feeder. Spoke with doctor cone machine feeder Dr Lemus and received verbal order that it is OK to take mucinex. Attempted to call patient back; no answer. Left voicemail to call back. Shelli Nina RN Reason for Disposition Cough Answer Assessment - Initial Assessment Questions 1. ONSET: Started cough last week 2. SEVERITY: Seems worse, unable to lay down - will wake up coughing 3. SPUTUM: Clear 4. HEMOPTYSIS: Denies 5. DIFFICULTY BREATHING: Denies 6. FEVER: Denies 7. CARDIAC HISTORY: Denies 8. LUNG HISTORY: Asthma years ago but not as an adult 9. PE RISK FACTORS: Denies 10. OTHER SYMPTOMS: Headache 11. : N/a 12. TRAVEL: None Protocols used: Cough - Acute Vjmazinkos-RKGOJ-SS [facility]11-23-2024 Miscellaneous Notes* Telephone Encounter - Shelli Nina RN - 02/29/2024 3:16 PM EST Reason for Call: patient called complaining of a cough for over a week. Outcome: Advised to treat at home. Patient verbalized understanding and is agreeable to the plan. Patient had question regarding taking Mucinex; if it is ok to take with her blood pressure. Paging cone machine feeder. Spoke with doctor cone machine feeder Dr Lemus and received verbal order that it is OK to take mucinex. Attempted to call patient back; no answer. Left voicemail to call back. Shelli Nina RN Reason for Disposition Cough Answer Assessment - Initial Assessment Questions 1. ONSET: Started cough last week 2. SEVERITY: Seems worse, unable to lay down - will wake up coughing 3. SPUTUM: Clear 4. HEMOPTYSIS: Denies 5. DIFFICULTY BREATHING: Denies 6. FEVER: Denies 7. CARDIAC HISTORY: Denies 8. LUNG HISTORY: Asthma years ago but not as an adult 9. PE RISK FACTORS: Denies 10. OTHER SYMPTOMS: Headache 11. : N/a 12. 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 Pt did not schedule at this time. 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 Pt did not schedule at this time. documented in [facility]10-[facility]-2024 Telephone encounter Note * Telephone Encounter - Selwyn Corona RN - 01/10/2024 1:18 PM EDT PATIENT NOTIFIED OF INFORMATION [facility]10-04-2024 Miscellaneous Notes* Telephone Encounter - Selwyn Corona RN - 01/10/2024 1:18 PM EDT PATIENT NOTIFIED OF INFORMATION * Telephone Encounter - Eliana Curtis APRN.CNP - 01/10/2024 8:45 AM EDT The only ones we have available are considered lifetime but you have to still renew every 5 years. Thank you Eliana Curtis APRN.CNP * Telephone Encounter - Annabelle Ncikerson LPN - 01/10/2024 8:06 AM EDT Pt calling for a handicap placard for a life time. She received one earlier but it was not for lifetime. Pt reports [employer] told her about getting a life time one so you do not need to keep renewing. 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 Annabelle Nickerson LPN documented in this encounterS[facility]10-04-2024 Telephone encounter Note * Telephone Encounter - Eliana Curtis APRN.CNP - 01/10/2024 8:45 AM EDT The only ones we have available are considered lifetime but you have to still renew every 5 years. Thank you Eliana Curtis APRN.CNP [facility]10-04-2024 Telephone encounter Note* Telephone Encounter - Annabelle Nickerson LPN - 01/10/2024 8:06 AM EDT Pt calling for a handicap placard for a life time. She received one earlier but it was not for lifetime. Pt reports DMV told her about getting a life time one so you do not need to keep renewing. 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 Annablele Nickerson LPN [facility]07-16-2024 Instructions* Patient Instructions* Roberta Pritchard APRN.ANDREA - 10/22/2023 8:23 AM EDT Take two 50 mg losartan daily until gone Then take one 100 mg losartan daily Call [facility] to schedule a sleep study documented in this encounterS[facility]07-[facility] History of Present illness Narrative* Roberta Pritchard APRN.ANDREA - 10/22/2023 8:00 AM EDT SUBJECTIVE: BP Controlled (<130/80) Never done Colorectal Cancer Screening Never done Mammogram Screening due on 04/12/2024 HPI Gilma Garcia is a 53 year old female. PMH significant for ACTIVE PROBLEM LIST Hypertension, Essential Chronic Low Back Pain Mixed Incontinence Contusion of Lower Back Head Injury Right Shoulder Pain Acute Pain of Left Knee Acute Hip Pain, Left Right Wrist Pain Altered Bowel Habits Traumatic Coccydynia Status Post Fall PCP: Julita Collins MD She was last seen by Eliana Curtis CNP August 29, 2023. Blood pressure noted to be elevated. Dose of losartan was increased. Concern for sleep apnea, HSAT was ordered. Returns to clinic today for a recheck of blood pressure. She notes she was unable to complete the home sleep study, could not figure out how to apply the attachments and completed. She would like to do an onsite sleep study. Home blood pressure readings: 190/100. She notes no longer feels dizzy, thinks this may have been anxiety and improved with taking Zoloft. HTN: Without report of headache, chest pain, palpitations, dyspnea, peripheral edema, orthopnea, fatigue, or PND. She reports both parents had coronary artery disease in her 50s. States mother had rheumatic heart disease and had valve surgeries as well. Last 14 Encounter BP Readings: Date: BP: 10/22/2023 174/89 08/29/2023 180/100[karen bp average[ 07/16/2023 151/83 07/02/2023 124/80 06/17/2023 130/72 05/20/2023 124/60 04/25/2023 149/76 04/25/2023 142/77 03/01/2023 130/84 01/23/2023 128/72 01/15/2023 130/80 12/31/2022 142/80 12/05/2022 132/70 09/20/2022 142/96 Review of Systems Constitutional: Positive for fatigue. Respiratory: Positive for apnea. Cardiovascular: Negative. Neurological: Negative. Objective BP 174/89 Pulse 63 Resp 16 Wt 88.5 kg (195 lb) LMP 09/26/2014 (Exact Date) BMI 33.70 kg/m Physical Exam Vitals and nursing note reviewed. Constitutional: Appearance: Normal appearance. HENT: Head: Normocephalic and atraumatic. Eyes: Conjunctiva/sclera: Conjunctivae normal. Neck: Thyroid: No thyromegaly. Vascular: Normal carotid pulses. No JVD. Cardiovascular: Rate and Rhythm: Normal rate and regular rhythm. Pulses: Carotid pulses are 2+ on the right side and 2+ on the left side. Radial pulses are 2+ on the right side and 2+ on the left side. Heart sounds: Normal heart sounds. Pulmonary: Effort: Pulmonary effort is normal. Breath sounds: Normal breath sounds. Abdominal: General: Bowel sounds are normal. Palpations: Abdomen is soft. Musculoskeletal: Right lower leg: No edema. Left lower leg: No edema. Skin: General: Skin is warm and dry. Neurological: General: No focal deficit present. Mental Status: She is alert and oriented to person, place, and time. ALLERGIES Allergen Reactions Mobic [Meloxicam] Hives Naproxen GI Upset Prednisone Hives, Shortness of Breath Tylenol #3 [Codeine] Hives Vicodin [Hydrocodon* GI Upset Nausea Medications sertraline (ZOLOFT) 50 mg tablet Take 1 tablet by mouth once daily. ergocalciferol 50,000 unit capsule (VITAMIN D2, DRISDOL) Take 1 capsule by mouth one time a week. triamcinolone acetonide (KENALOG) 0.1 % cream Apply 1 application to affected area three times a day. Apply sparingly to area for rash/itching. ibuprofen (MOTRIN) 800 mg tablet Take 1 tablet by mouth every 8 hours as needed for pain. Take withfood. acetaminophen (TYLENOL EXTRA STRENGTH) 500 mg tablet Take 2 tablets by mouth every 8 hours as needed for pain. metoprolol succinate ER (TOPROL XL) 100 mg take 1 tablet by mouth every day diclofenac (VOLTAREN ARTHRITIS PAIN) 1 % topical gel Apply 4 g to affected area four times daily. polyethylene glycol 3350 (MIRALAX) 17 gram/dose powder For colonoscopy prep losartan (COZAAR) 100 mg tablet Take 1 tablet by mouth once daily. DOSE CHANGE TAKE ONE DAILY PAST MEDICAL HISTORY Diagnosis Date Acute cholecystitis Carpal tunnel syndrome, bilateral Cervical radiculopathy Chronic low back pain Chronic right-sided low back pain without sciatica 06/08/2022 Concussion 08/13/2022 GERD (gastroesophageal reflux disease) History of TIA (transient ischemic attack) HTN (hypertension) Hypokalemia Left hip pain 10/25/2022 Left knee pain 10/25/2022 Rib pain on right side 06/08/2022 Right shoulder pain 08/13/2022 SOB (shortness of breath) Vitamin D deficiency Social History Tobacco Use Smoking status: Never Smokeless tobacco: Never Vaping Use Vaping Use: Never used Substance Use Topics Alcohol use: No Drug use: No Latest Ref Rng 09/06/2022 09/27/2022 01/08/2023 2023 WBC 3.70 - 11.00 k/uL 8.19 7.53 RBC 3.90 - 5.20 m/uL 5.24 (H) 5.50 (H) Hemoglobin 11.5 - 15.5 g/dL 13.9 14.8 Hematocrit 36.0 - 46.0 % 45.0 47.0 (H) MCV 80.0 - 100.0 fL 85.9 85.5 MCH 26.0 - 34.0 pg 26.5 26.9 MCHC 30.5 - 36.0 g/dL 30.9 31.5 RDW-CV 11.5 - 15.0 % 15.0 15.4 (H) Platelet Count 150 - 400 k/uL 387 382 MPV 9.0 - 12.7 fL 10.1 9.9 Neut% % 63.3 63.9 Abs Neut (ANC) 1.45 - 7.50 k/uL 5.20 4.82 Lymph% % 24.1 23.8 Abs Lymph 1.00 - 4.00 k/uL 1.97 1.79 [place]% % 9.2 8.5 Abs [place] <0.87 k/uL 0.75 0.64 Eosin% % 2.0 2.3 Abs Eosin <0.46 k/uL 0.16 0.17 Baso% % 1.0 1.1 Abs Baso <0.11 k/uL 0.08 0.08 Immature Gran % % 0.4 0.4 IMMATURE GRANS (ABS) <0.10 k/uL 0.03 0.03 NRBC /100 WBC 0.0 0.0 Absolute nRBC <0.01 k/uL <0.01 <0.01 DTYPE Auto Auto Protein, Total 6.3 - 8.0 g/dL 7.0 7.3 Albumin 3.9 - 4.9 g/dL 4.1 4.1 Calcium 8.5 - 10.2 mg/dL 9.6 9.3 9.3 9.2 Bilirubin, Total 0.2 - 1.3 mg/dL 0.3 0.3 Alkaline Phosphatase 34 - 123 U/L 110 117 AST 13 - 35 U/L 17 20 ALT 7 - 38 U/L 16 19 Glucose 74 - 99 mg/dL 91 108 (H) 117 (H) 108 (H) BUN 7 - 21 mg/dL 15 11 12 11 Creatinine 0.58 - 0.96 mg/dL 0.78 0.74 0.74 0.68 Sodium 136 - 144 mmol/L 138 140 139 139 Potassium 3.7 - 5.1 mmol/L 3.3 (L) 4.0 4.5 4.2 Chloride 97 - 105 mmol/L 99 102 103 102 CO2 22 - 30 mmol/L 30 25 25 25 Anion Gap 9 - 18 mmol/L 9 13 11 12 eGFR >=60 mL/min/1.73m 91 97 97 104 Cholesterol, Total <200 mg/dL 161 163 Triglyceride <150 mg/dL 84 71 HDL Cholesterol >39 mg/dL 39 (L) 39 (L) Non HDL Cholesterol <130 mg/dL 122 124 Fasting Time hrs 12 12 VLDL Cholesterol <30 mg/dL 17 14 TC:HDL Ratio <5.10 4.13 4.18 LDL Cholesterol <100 mg/dL 105 (H) 110 (H) LDL:HDL Ratio <2.54 2.69 (H) 2.82 (H) Hemoglobin A1C 4.3 - 5.6 % 6.4 (H) 6.3 (H) Estimated Average Glucose mg/dL 137 134 Vitamin D 25 Hydroxy 31.0 - 80.0 ng/mL 15.3 (L) ASSESSMENT/PLAN: 1. Observed sleep apnea - ICD9: 780.57, ICD10: G47.30 (primary diagnosis) Unable to complete home sleep study as she was unable to figure out how to apply the device. She prefers to complete sleep study onsite if possible. - POLYSOMNOGRAM (PSG) - CONSULT TO SLEEP MEDICINE - ADULT -deferred to later date 2. Essential hypertension, benign - ICD9: 401.1, ICD10: I10 Suboptimal control. Increase losartan from 50 to 100 mg daily. Recheck blood pressure in 1 4 weeks. - Encouraged sodium restriction, DASH or Mediterranean diet - Recommend regular aerobic exercise - LOSARTAN 100 MG TABLET - POLYSOMNOGRAM (PSG) - CONSULT TO SLEEP MEDICINE - ADULT 3. Has daytime drowsiness - ICD9: 780.09, ICD10: R40.0 - POLYSOMNOGRAM (PSG) - CONSULT TO SLEEP MEDICINE - ADULT 4. Loud snoring - ICD9: 786.09, ICD10: R06.83 - POLYSOMNOGRAM (PSG) - CONSULT TO SLEEP MEDICINE - ADULT Roberta Pritchard APRN.STUDIO ENGINEER Medical Decision Making: Problems: Moderate: 2+ stable chronic illnesses Data: Unique test(s) ordered: 1 Risk: Moderate: Drug management Medical Decision Making Level: 4 - Moderate documented in this encounterS[facility]07-[facility]-2024 NoteHNO ID: [id number] Author: ROBERTA PRITCHARD APRN.STUDIO ENGINEER Service: ? Author Type: Nurse Specialist Type: Progress Notes Filed: 10/22/2023 08:45 Note Text: SUBJECTIVE: BP Controlled (<130/80) Never done Colorectal Cancer Screening Never done Mammogram Screening due on 04/12/2024 HPI Gilma Garcia is a 53 year old female. PMH significant for ACTIVE PROBLEM LIST Hypertension, Essential Chronic Low Back Pain Mixed Incontinence Contusion of Lower Back Head Injury Right Shoulder Pain Acute Pain of Left Knee Acute Hip Pain, Left Right Wrist Pain Altered Bowel Habits Traumatic Coccydynia Status Post Fall PCP: Julita Collins MD She was last seen by Eliana Curtis CNP August 29, 2023. Blood pressure noted to be elevated. Dose of losartan was increased. Concern for sleep apnea, HSAT was ordered. Returns to clinic today for a recheck of blood pressure. She notes she was unable to complete the home sleep study, could not figure out how to apply the attachments and completed. She would like to do an onsite sleep study. Home blood pressure readings: 190/100. She notes no longer feels dizzy, thinks this may have been anxiety and improved with taking Zoloft. HTN: Without report of headache, chest pain, palpitations, dyspnea, peripheral edema, orthopnea, fatigue, or PND. She reports both parents had coronary artery disease in her 50s. States mother had rheumatic heart disease and had valve surgeries as well. Last 14 Encounter BP Readings: Date: BP: 10/22/2023 174/89 08/29/2023 180/100[karen bp average[ 07/16/2023 151/83 07/02/2023 124/80 06/17/2023 130/72 05/20/2023 124/60 04/25/2023 149/76 04/25/2023 142/77 03/01/2023 130/84 01/23/2023 128/72 01/15/2023 130/80 12/31/2022 142/80 12/05/2022 132/70 09/20/2022 142/96 Review of Systems Constitutional: Positive for fatigue. Respiratory: Positive for apnea. Cardiovascular: Negative. Neurological: Negative. Objective BP 174/89 Pulse 63 Resp 16 Wt 88.5 kg (195 lb) LMP 09/26/2014 (Exact Date) BMI 33.70 kg/m? Physical Exam Vitals and nursing note reviewed. Constitutional: Appearance: Normal appearance. HENT: Head: Normocephalic and atraumatic. Eyes: Conjunctiva/sclera: Conjunctivae normal. Neck: Thyroid: No thyromegaly. Vascular: Normal carotid pulses. No JVD. Cardiovascular: Rate and Rhythm: Normal rate and regular rhythm. Pulses: Carotid pulses are 2+ on the right side and 2+ on the left side. Radial pulses are 2+ on the right side and 2+ on the left side. Heart sounds: Normal heart sounds. Pulmonary: Effort: Pulmonary effort is normal. Breath sounds: Normal breath sounds. Abdominal: General: Bowel sounds are normal. Palpations: Abdomen is soft. Musculoskeletal: Right lower leg: No edema. Left lower leg: No edema. Skin: General: Skin is warm and dry. Neurological: General: No focal deficit present. Mental Status: She is alert and oriented to person, place, and time. ALLERGIES Allergen Reactions Mobic [Meloxicam] Hives Naproxen GI Upset Prednisone Hives, Shortness of Breath Tylenol #3 [Codeine] Hives Vicodin [Hydrocodon* GI Upset Nausea Medications sertraline (ZOLOFT) 50 mg tablet Take 1 tablet by mouth once daily. ergocalciferol 50,000 unit capsule (VITAMIN D2, DRISDOL) Take 1 capsule by mouth one time a week. triamcinolone acetonide (KENALOG) 0.1 % cream Apply 1 application to affected area three times a day. Apply sparingly to area for rash/itching. ibuprofen (MOTRIN) 800 mg tablet Take 1 tablet by mouth every 8 hours as needed for pain. Take with food. acetaminophen (TYLENOL EXTRA STRENGTH) 500 mg tablet Take 2 tablets by mouth every 8 hours as needed for pain. metoprolol succinate ER (TOPROL XL) 100 mg take 1 tablet by mouth every day diclofenac (VOLTAREN ARTHRITIS PAIN) 1 % topical gel Apply 4 g to affected area four times daily. polyethylene glycol 3350 (MIRALAX) 17 gram/dose powder For colonoscopy prep losartan (COZAAR) 100 mg tablet Take 1 tablet by mouth once daily. DOSE CHANGE TAKE ONE DAILY PAST MEDICAL HISTORY Diagnosis Date Acute cholecystitis Carpal tunnel syndrome, bilateral Cervical radiculopathy Chronic low back pain Chronic right-sided low back pain without sciatica 06/08/2022 Concussion 08/13/2022 GERD (gastroesophageal reflux disease) History of TIA (transient ischemic attack) HTN (hypertension) Hypokalemia Left hip pain 10/25/2022 Left knee pain 10/25/2022 Rib pain on right side 06/08/2022 Right shoulder pain 08/13/2022 SOB (shortness of breath) Vitamin D deficiency Social History Tobacco Use Smoking status: Never Smokeless tobacco: Never Vaping Use Vaping Use: Never used Substance Use Topics Alcohol use: No Drug use: No Latest Ref Rng 09/06/2022 09/27/2022 01/08/2023 2023 WBC 3.70 - 11.00 k/uL 8.19 7.53 RBC 3.90 - 5.20 m/uL 5.24 (H) 5.50 (H) Hemoglobin 11.5 - 15.5 g/d (more content not included)...[facility]07-01-2024 Telephone encounter Note* Telephone Encounter - Lavonne Constantino MA - 10/07/2023 11:23 AM EDT Prescription Refill Information The patient has been identified by name and date of : Yes Caregiver verified no other encounters exist for this prescription request: Yes Caregiver confirmed with patient/requestor that no other refills are due, in the near future, with this provider at this time: Yes The last office visit in the department: 08/29/23 Does the patient have a future office visit with this provider/department: Yes Requested Prescriptions Pending Prescriptions Disp Refills losartan (COZAAR) 50 mg tablet 30 tablet 1 Sig: Take 1 tablet by mouth once daily. Lavonne Constantino MA October 07, 2023 11:25 AM [facility]07-01-2024 Miscellaneous Notes* Telephone Encounter - Lavonne Constantino MA - 10/07/2023 11:23 AM EDT Prescription Refill Information The patient has been identified by name and date of : Yes Caregiver verified no other encounters exist for this prescription request: Yes Caregiver confirmed with patient/requestor that no other refills are due, in the near future, with this provider at this time: Yes The last office visit in the department: 08/29/23 Does the patient have a future office visit with this provider/department: Yes Requested Prescriptions Pending Prescriptions Disp Refills losartan (COZAAR) 50 mg tablet 30 tablet 1 Sig: Take 1 tablet by mouth once daily. Lavonne Constantino MA October 07, 2023 11:25 AM documented in this encounterShel[facility]2024 NoteHNO ID: [id number] Author: ?, ?, ? Service: ? Author Type: ? Type: Progress Notes Filed: 09/27/2023 14:15 Note Text: Patient stated she wants a in [facility]2024 History of Present illness Narrative* Bozena Thakur - 09/27/2023 2:15 PM EDT Patient stated she wants a in lab * Bozena Thakur - 09/27/2023 10:00 AM EDT Sleep Study Check-In Documentation Date: September 27, 2023 Name: Gilma Garcia Comments: HST was returned in work order. Study did not occur. Device was blank will redeploy Bozena Thakur * Rashaad Fang - 09/24/2023 12:11 PM EDT PATIENT SAYS SHE WAS IN THE HOSPITAL SO SHE WAS UNABLE TO COMPLETE THE STUDY. sHE WILL BE SENDING BACK VIA [employer]. SHE ALSO STATED THAT SHE WOULD RATHER DO AN IN LAB * Bárbara Martinez - 09/24/2023 10:53 AM EDT LVM AND SENT REGARDING DEVICE * Kayode Cormier - 09/16/2023 11:25 AM EDT [facility]# [id number] +GPS , Date shipped out: 09/16/23 SENT FEDEX DELIVERY - FEDEX RETURN Tracking mailout: [id number] Tracking return: [phone] * Tru Orr III, PhD - 09/11/2023 10:29 AM EDT September 11, 2023 Standing PSG Orders signed in the last 90 days None Future PSG Orders signed in the last 90 days Ordered Auth. provider HOME SLEEP APNEA TEST (HSAT) [[id number]] 08/29/23 Eliana Curtis APRN.[employer]RE [employer]END[employer] Assoc. diagnoses: Essential hypertension, benign [I10], Snoring [R06.83], Witnessed episode of apnea [R06.81], Other fatigue [R53.83] Q: Indications: A: Obstructive sleep apnea Q: STOP-BANG conditions - Select All That Apply: A: AGE > 50 A2: high blood PRESSURE A3: TIREDNESS, fatigue or sleepiness during the day A4: SNORING that is loud or disruptive A5: OBSERVED sleep apnea Q: Current use of supplemental oxygen during sleep period?: A: No All Prior Sleep Studies (past 365 days) 08/29/2023 08:10 Sleep Studies HOME SLEEP APNEA TEST (HSAT) HOME SLEEP APNEA TEST (HSAT) Order Status: Ordered, Future Expires: 08/28/24 BMI Readings from Last 2 Encounters: 08/29/23 : 34.05 kg/m 07/16/23 : 34.74 kg/m PAST MEDICAL HISTORY Diagnosis Date Acute cholecystitis Carpal tunnel syndrome, bilateral Cervical radiculopathy Chronic low back pain Chronic right-sided low back pain without sciatica 06/08/2022 Concussion 08/13/2022 GERD (gastroesophageal reflux disease) History of TIA (transient ischemic attack) HTN (hypertension) Hypokalemia Left hip pain 10/25/2022 Left knee pain 10/25/2022 Rib pain on right side 06/08/2022 Right shoulder pain 08/13/2022 SOB (shortness of breath) Vitamin D deficiency The medical record was reviewed to determine if the proposed sleep study conforms to the AASM Practice Parameters for the Indications for Polysomnography and Related Procedures, or if the sleep studyis indicated for other reasons. Indications for study: JONY suspected without comorbid medical or sleep disorders Sleep study to be performed: Home Sleep Apnea Test (HSAT) Special instructions: None-follow laboratory protocol Kamini Vargas Tech Sleep Medicine Staff Note: I have read the above protocol, edited as needed, and agree to the plan. Tru Orr III, PhD 6:47 PM, 09/11/2023 * Kera Barrientos - 09/11/2023 9:35 AM EDT September 11, 2023 An order has been received for Home Sleep Apnea Test (HSAT) from Eliana Manuel APRN.caron HENNESSY. [facility] Staff. Visit prep complete. Comments :No The sleep study is scheduled for 09/17. Insurance: [facility] / Plan[facility] [place] [facility] / Product Type: Medicaid / Payer/Plan Subscr Sex Relation Sub. Ins. ID Effective Group Num 1. [facility]* GILMA GARCIA* 1970 Female Self [id number] 03/08/23 [address] Kera Barrientos documented in this encounterShel[facility]2024 NoteHNO ID: [id number] Author: ?, ?, ? Service: ? Author Type: ? Type: Progress Notes Filed: 09/27/2023 14:15 Note Text: Sleep Study Check-In Documentation Date: September 27, 2023 Name: Gilma Garcia Comments: HST was returned in work order. Study did not occur. Device was blank will redeploy Bozena FinneganinsMartin [facility]06-[facility]-2024 NoteHNO ID: [id number] Author: ?, ?, ? Service: ? Author Type: ? Type: Progress Notes Filed: 09/27/2023 14:15 Note Text: PATIENT SAYS SHE WAS IN THE [facility] SO SHE WAS UNABLE TO COMPLETE THE STUDY. sHE WILL BE SENDING BACK VIA [facility]. SHE ALSO STATED THAT SHE WOULD RATHER [facility] NoteHNO ID: [id number] Author: ?, ?, ? Service: ? Author Type: ? Type: Progress Notes Filed: 09/27/2023 14:15 Note Text: [facility] History of Present illness Narrative* Ever, CARA Monroy.FIRE TENDER - 08/29/2023 7:59 AM EDT CC: Patient presents with: Recheck: BP follow up HPI Gilma Garcia is a 53 year old female who presents today for blood pressure follow up. Had losartan restarted 6 weeks ago and is tolerating well. HTN: Ms. Garcia indicates that she is feeling well and denies any symptoms referable to elevated blood pressure. Specifically denies headache, chest pain, palpitations, dyspnea, and peripheral edema. Patient denies any side effects of her medication(s) and is compliant with their regimen. She does not check BP's generally. Gilma works out regularly by [employer]. She watches her diet for sodium, low fat and low cholesterol generally not very much. Per patient normal cardiac workup with heart catheterization in the past few years. Last 3 Encounter BP Readings: Date: BP: 08/29/2023 168/102 07/16/2023 151/83 07/02/2023 124/80 Does not take ibuprofen, advil, or aleve, or other OTC anti-inflammatories. Drink large amount of mountain dew in the day. Does not smoke. Reports once in a hospitalization she had many episodes of witnessed apnea, snores, and is tired during the day. REVIEW OF SYSTEMS See HPI PAST MEDICAL HISTORY Diagnosis Date Acute cholecystitis Carpal tunnel syndrome, bilateral Cervical radiculopathy Chronic low back pain Chronic right-sided low back pain without sciatica 06/08/2022 Concussion 08/13/2022 GERD (gastroesophageal reflux disease) History of TIA (transient ischemic attack) HTN (hypertension) Hypokalemia Left hip pain 10/25/2022 Left knee pain 10/25/2022 Rib pain on right side 06/08/2022 Right shoulder pain 08/13/2022 SOB (shortness of breath) Vitamin D deficiency PAST SURGICAL HISTORY Procedure Laterality Date COLONOSCOPY 04/25/2023 LAPAROSCOPY SURG CHOLECYSTECTOMY 05/23/2015 TONSILLECTOMY PRIMARY/SECONDARY <AGE 11 Tonsillectomy TUBAL LIGATION HX 1993 VAGINAL HYSTERECTOMY UTERUS 250 GM/< 2015 ALLERGIES Mobic [Meloxicam], Naproxen, Prednisone, Tylenol #3 [Codeine], and Vicodin [Hydrocodone-Acetaminophen] MEDICATIONS losartan (COZAAR) 50 mg tablet Take 1 tablet by mouth once daily. sertraline (ZOLOFT) 50 mg tablet Take 1 tablet by mouth once daily. ergocalciferol 50,000 unit capsule (VITAMIN D2, DRISDOL) Take 1 capsule by mouth one time a week. triamcinolone acetonide (KENALOG) 0.1 % cream Apply 1 application to affected area three times a day. Apply sparingly to area for rash/itching. ibuprofen (MOTRIN) 800 mg tablet Take 1 tablet by mouth every 8 hours as needed for pain. Take withfood. acetaminophen (TYLENOL EXTRA STRENGTH) 500 mg tablet Take 2 tablets by mouth every 8 hours as needed for pain. metoprolol succinate ER (TOPROL XL) 100 mg take 1 tablet by mouth every day diclofenac (VOLTAREN ARTHRITIS PAIN) 1 % topical gel Apply 4 g to affected area four times daily. polyethylene glycol 3350 (MIRALAX) 17 gram/dose powder For colonoscopy prep FAMILY HISTORY Problem Relation Age of Onset Hypertension Mother Hypertension Father Coronary Artery Disease Mother Coronary Artery Disease Father Cancer Mother Breast Cancer Father Lung Social History Tobacco Use Smoking status: Never Smokeless tobacco: Never Vaping Use Vaping Use: Never used Substance Use Topics Alcohol use: No Drug use: No PHYSICAL EXAM BP 180/100 (BP Site: Left Arm, BP Position: Sitting, BP Cuff Size: Large Adult) Pulse 80 Resp 16 Wt 89.4 kg (197 lb) LMP 09/26/2014 (Exact Date) SpO2 97% BMI 34.05 kg/m General Appearance: well appearing, in no acute distress, alert Eyes: conjunctiva pink and moist, no icterus, sclera white, non-injected Lungs: Lungs clear to auscultation. No wheezing, rhonchi, rales. Heart: RRR without murmur, gallop, or rubs. No ectopy Health maintenance reviewed with patient: BP Controlled (<130/80) Never done Colorectal Cancer Screening Never done Covid-19 Vaccine( season) due on 01/16/2024 DTaP,Tdap,Td Vaccine(2 - Td or Tdap) due on 07/01/2024 Hepatitis B Vaccine(1 of 3 - 19+ 3-dose series) due on 07/01/2024 HIV Screening due on 07/01/2024 Shingrix Vaccine(1 of 2) due on 07/01/2024 Influenza Vaccine(Season Ended) due on 12/08/2023 Mammogram Screening due on 04/12/2024 Annual PCP Team Chronic Disease Visit due on 08/28/2024 Diabetes Screening due on 06/20/2026 Lipid Screening due on 06/20/2028 Behavioral Health Screening Completed Hepatitis C Screening Completed Pap Testing Discontinued HPV Testing Discontinued DATA REVIEWED: No new labs ASSESSMENT/PLAN: 1. Essential hypertension, benign - ICD9: 401.1, ICD10: I10 (primary diagnosis) - Uncontrolled - Continue current medications but increasing losartan - follow up in 2 weeks - Recommend home blood pressure monitoring, to bring results to next visit - Encouraged sodium restriction, DASH or Mediterranean diet - Recommend regular aerobic exercise - HOME SLEEP APNEA TEST (HSAT) - LOSARTAN 50 MG TABLET 2. Snoring - ICD9: 786.09, ICD10: R06.83 Probable sleep apnea, needs further evaluated and treated if indicated. - HOME SLEEP APNEA TEST (HSAT) 3. Witnessed episode of apnea - ICD9: 786.03, ICD10: R06.81 As above - HOME SLEEP APNEA TEST (HSAT) 4. Other fatigue - ICD9: 780.79, ICD10: R53.83 See #2 - HOME SLEEP APNEA TEST (HSAT) Prescription instructions reviewed with patient as applicable. Potential red flag symptoms discussed with the patient. Reviewed appropriate action plan to take if red flag symptoms occur. Patient agreeable to treatment plan. Eliana Curtis APRN.FIRE TENDER documented in this encounterS[facility]04-[facility]24 Miscellaneous Notes* Telephone Encounter - Lily Perez RN - 07/18/2023 9:46 PM EDT Patient calling with request for elevated BP reading. Patient denies any new or worsening symptoms of which a provider is not aware: No. Patient sitting in triage due to high blood pressure and wantsadvice. Informed patient she needs to stay there and be evaluated. documented in this encounterS[facility]04-11-2024 Miscellaneous Notes* Telephone Encounter - Ladonna Hurd RN - 07/18/2023 9:20 PM EDT Reason for Call: Patient calling to see what to do about her blood pressure readings. It read 195/100 at home and 200/100 at [facility]. As triage was started, patient said hold on. Then she came back on the line and said she is at the hospital getting her blood pressure taken. Outcome: Patient advised to follow the advice of the hospital staff and to call back if needed. documented in this encounterShelby [facility]04-09-2024 Instructions* Patient Instructions* Roberta Pritchard APRN.CNS - 07/16/2023 8:59 AM EDT Drink sufficient fluids, aim for 64 ounces per day. Keep working on decreasing caffeine intake. Resume losartan 25 mg once daily documented in this encounterShelby [facility]04-09-2024 History of Present illness Narrative* Roberta Pritchard APRN.CNS - 07/16/2023 8:40 AM EDT SUBJECTIVE: BP Controlled (<130/80) Never done Colorectal Cancer Screening Never done HPI Gilma Garcia is a 53 year old female. PMH significant for ACTIVE PROBLEM LIST Hypertension, Essential Chronic Low Back Pain Mixed Incontinence Contusion of Lower Back Head Injury Right Shoulder Pain Acute Pain of Left Knee Acute Hip Pain, Left Right Wrist Pain Altered Bowel Habits Traumatic Coccydynia Status Post Fall PCP: Julita Collins MD Seen by Eliana Curtis CNP 07/02/2023 for annual physical. She noted dizziness with walking long distances. She noted taking losartan in the morning metoprolol XL in the evening. Advised to hold losartan. Monitor blood pressures at home. Follow-up in 2 weeks to review home blood pressures and dizziness. Notes may not drink enough fluids. She may be drinking too much caffeine, trying to cut this this down gradually and then discontinue. She thought maybe had vertigo previously. Today reports no further dizziness since last seen. Home blood pressure readings: 150/93 to 170/97. Pulse 74-105. HTN: Without report of headache, chest pain, palpitations, dyspnea, peripheral edema, orthopnea, fatigue, and PND. Last 14 Encounter BP Readings: Date: BP: 07/16/2023 151/83 07/02/2023 124/80 06/17/2023 130/72 05/20/2023 124/60 04/25/2023 149/76 04/25/2023 142/77 03/01/2023 130/84 01/23/2023 128/72 01/15/2023 130/80 12/31/2022 142/80 12/05/2022 132/70 09/20/2022 142/96 09/10/2022 126/80 09/06/2022 128/80 Review of Systems Constitutional: Negative. Respiratory: Negative. Cardiovascular: Negative. Neurological: Negative. Objective BP 151/83 Pulse 80 Resp 16 Wt 91.2 kg (201 lb) LMP 09/26/2014 (Exact Date) BMI 34.74 kg/m Physical Exam Vitals and nursing note reviewed. Constitutional: Appearance: Normal appearance. HENT: Head: Normocephalic and atraumatic. Eyes: Conjunctiva/sclera: Conjunctivae normal. Neck: Thyroid: No thyromegaly. Vascular: Normal carotid pulses. No JVD. Cardiovascular: Rate and Rhythm: Normal rate and regular rhythm. Pulses: Carotid pulses are 2+ on the right side and 2+ on the left side. Radial pulses are 2+ on the right side and 2+ on the left side. Heart sounds: Normal heart sounds. Pulmonary: Effort: Pulmonary effort is normal. Breath sounds: Normal breath sounds. Abdominal: General: Bowel sounds are normal. Palpations: Abdomen is soft. Musculoskeletal: Right lower leg: No edema. Left lower leg: No edema. Skin: General: Skin is warm and dry. Neurological: General: No focal deficit present. Mental Status: She is alert and oriented to person, place, and time. ALLERGIES Allergen Reactions Mobic [Meloxicam] Hives Naproxen GI Upset Prednisone Hives, Shortness of Breath Tylenol #3 [Codeine] Hives Vicodin [Hydrocodon* GI Upset Nausea sertraline (ZOLOFT) 50 mg tablet Take 1 tablet by mouth once daily. ergocalciferol 50,000 unit capsule (VITAMIN D2, DRISDOL) Take 1 capsule by mouth one time a week. triamcinolone acetonide (KENALOG) 0.1 % cream Apply 1 application to affected area three times a day. Apply sparingly to area for rash/itching. ibuprofen (MOTRIN) 800 mg tablet Take 1 tablet by mouth every 8 hours as needed for pain. Take withfood. acetaminophen (TYLENOL EXTRA STRENGTH) 500 mg tablet Take 2 tablets by mouth every 8 hours as needed for pain. losartan (COZAAR) 25 mg tablet take 1 tablet by mouth once daily. metoprolol succinate ER (TOPROL XL) 100 mg take 1 tablet by mouth every day diclofenac (VOLTAREN ARTHRITIS PAIN) 1 % topical gel Apply 4 g to affected area four times daily. polyethylene glycol 3350 (MIRALAX) 17 gram/dose powder For colonoscopy prep naproxen (NAPROSYN) 500 mg tablet Take 1 tablet by mouth two times a day with meals. PAST MEDICAL HISTORY Diagnosis Date Acute cholecystitis Carpal tunnel syndrome, bilateral Cervical radiculopathy Chronic low back pain Chronic right-sided low back pain without sciatica 06/08/2022 Concussion 08/13/2022 GERD (gastroesophageal reflux disease) History of TIA (transient ischemic attack) HTN (hypertension) Hypokalemia Left hip pain 10/25/2022 Left knee pain 10/25/2022 Rib pain on right side 06/08/2022 Right shoulder pain 08/13/2022 SOB (shortness of breath) Vitamin D deficiency Social History Tobacco Use Smoking status: Never Smokeless tobacco: Never Vaping Use Vaping Use: Never used Substance Use Topics Alcohol use: No Drug use: No Latest Ref Rng 09/06/2022 09/27/2022 01/08/2023 2023 WBC 3.70 - 11.00 k/uL 8.19 7.53 RBC 3.90 - 5.20 m/uL 5.24 (H) 5.50 (H) Hemoglobin 11.5 - 15.5 g/dL 13.9 14.8 Hematocrit 36.0 - 46.0 % 45.0 47.0 (H) MCV 80.0 - 100.0 fL 85.9 85.5 MCH 26.0 - 34.0 pg 26.5 26.9 MCHC 30.5 - 36.0 g/dL 30.9 31.5 RDW-CV 11.5 - 15.0 % 15.0 15.4 (H) Platelet Count 150 - 400 k/uL 387 382 MPV 9.0 - 12.7 fL 10.1 9.9 Neut% % 63.3 63.9 Abs Neut (ANC) 1.45 - 7.50 k/uL 5.20 4.82 Lymph% % 24.1 23.8 Abs Lymph 1.00 - 4.00 k/uL 1.97 1.79 [place]% % 9.2 8.5 Abs [place] <0.87 k/uL 0.75 0.64 Eosin% % 2.0 2.3 Abs Eosin <0.46 k/uL 0.16 0.17 Baso% % 1.0 1.1 Abs Baso <0.11 k/uL 0.08 0.08 Immature Gran % % 0.4 0.4 IMMATURE GRANS (ABS) <0.10 k/uL 0.03 0.03 NRBC /100 WBC 0.0 0.0 Absolute nRBC <0.01 k/uL <0.01 <0.01 DTYPE Auto Auto Protein, Total 6.3 - 8.0 g/dL 7.0 7.3 Albumin 3.9 - 4.9 g/dL 4.1 4.1 Calcium 8.5 - 10.2 mg/dL 9.6 9.3 9.3 9.2 Bilirubin, Total 0.2 - 1.3 mg/dL 0.3 0.3 Alkaline Phosphatase 34 - 123 U/L 110 117 AST 13 - 35 U/L 17 20 ALT 7 - 38 U/L 16 19 Glucose 74 - 99 mg/dL 91 108 (H) 117 (H) 108 (H) BUN 7 - 21 mg/dL 15 11 12 11 Creatinine 0.58 - 0.96 mg/dL 0.78 0.74 0.74 0.68 Sodium 136 - 144 mmol/L 138 140 139 139 Potassium 3.7 - 5.1 mmol/L 3.3 (L) 4.0 4.5 4.2 Chloride 97 - 105 mmol/L 99 102 103 102 CO2 22 - 30 mmol/L 30 25 25 25 Anion Gap 9 - 18 mmol/L 9 13 11 12 eGFR >=60 mL/min/1.73m 91 97 97 104 Cholesterol, Total <200 mg/dL 161 163 Triglyceride <150 mg/dL 84 71 HDL Cholesterol >39 mg/dL 39 (L) 39 (L) Non HDL Cholesterol <130 mg/dL 122 124 Fasting Time hrs 12 12 VLDL Cholesterol <30 mg/dL 17 14 TC:HDL Ratio <5.10 4.13 4.18 LDL Cholesterol <100 mg/dL 105 (H) 110 (H) LDL:HDL Ratio <2.54 2.69 (H) 2.82 (H) Hemoglobin A1C 4.3 - 5.6 % 6.4 (H) 6.3 (H) Estimated Average Glucose mg/dL 137 134 Vitamin D 25 Hydroxy 31.0 - 80.0 ng/mL 15.3 (L) ASSESSMENT/PLAN: 1. Hypertension, essential - ICD9: 401.9, ICD10: I10 (primary diagnosis) Suboptimal control. Recommend resuming losartan. May split blood pressure dosing, 1 in morning 1 inthe evening. Endorse decreasing and and eventually discontinuing caffeinated beverages - Recommend home blood pressure monitoring, to bring results to next visit - Encouraged sodium restriction, DASH or Mediterranean diet - Recommend regular aerobic exercise 2. Dizziness - ICD9: 780.4, ICD10: R42 She notes she thought this may have been vertigo. Today notes she may not be drinking enough fluids. Endorse sufficient fluid intake, aim for 64 ounces per day. Without dizziness since last seen. Keep appt with Gio Pritchard APRN.STUDIO ENGINEER Medical Decision Making: Problems: Moderate: 1+ chronic illnesses with change Risk: Moderate: Drug management Medical Decision Making Level: 4 - Moderate documented in this encounterShelby [facility]04-05-2024 History of Present illness Narrative* Lashay Lara, PT - 07/12/2023 8:29 AM EDT Images from the original note were not included. Episode Visit Count: 6 Therapist That Will Accept/Oversee The Plan Of Care: Lashay Lara Start of Care Date: 05/29/23 Onset Date: 04/14/23 Plan of Care Certification Date: 07/12/23 Next Certification Due Date: 07/12/23 [facility] PHYSICAL THERAPY DISCONTINUANCE OF CARE PLAN OF CARE UPDATE: Assessment: Gilma Garcia is discontinued from Physical Therapy services due to goal achievement.. Patient was seen for 6 visits from Start of Care Date: 05/29/23 to 07/12/2023 and treatment included: Therapeutic exercise, Neuromuscular re-education, Manual therapy, Therapeutic activities, Self-senior living management, and Gait training. Goals for Episode of Care: created on 05/29/23 through 07/10/23 Goals updated on 07/12/2023. Independent in home exercises. -- MET Patient will decrease pain rating by 2 points to meet minimal clinical important difference for numeric pain rating scale. -- MET Restore pain-free lumbar ROM to moderate to minimal limitation to allow for transfers and upright posture. -- MET Stand / Walk 30-45 min without increased pain/symptoms.Pt. reports only tolerating about 20 min. Initial eval. -- MET Sleep through night without pain/symptoms. >4-5 consecutive hours without waking due to coccyx pain. -- MET Sit 45 min to 1 hours without pain/symptoms to allow for seated activities or rest. -- MET Maintain proper sitting posture throughout session -- MET Patient will be able to tolerate functional activities, completing house work for 45 min (including intermittent rest as needed) without increased symptoms.Pt. reports this took her 30 minutes before her fall. -- MET Patient Goals: tolerate my daily housework -- MET SUBJECTIVE: Pt. has been ill and had to cx many apt. Pt. reports much improvement. Denies pain. Housework and community distance ambulation are going well.. Pain: Pain Pain Level: 0 Pain Location: Coccyx, Back Post Treatment Pain Post Treatment Pain Level: No Change Post Treatment Pain Location: Coccyx, Back PROMIS Scales 06/23/2023 05/27/2023 02/25/2023 Higher is Better Phys Func - Score 43 (mild dysfunction) 37 (moderate dysfunction) 45 (within normal limits) Phys Func - Percentile 24 10 31 Self-Eff Symptom - Score 42 (Average) 37 (Low) 46 (Average) Self-Eff Symptom - Percentile 21 10 34 T-scores: mean of general population = 50. 5 points is clinically meaningfully difference Percentiles provide an indication of how the patient's score ranks in relation to the general population. Higher percentile rankings indicate better function/quality of life. 50th percentile is the average of the general population and indicates half of respondents had a worse score. OBJECTIVE MEASURES WITH LEVEL OF FUNCTION: Lumbar Spine AROM Lumbar Flexion: Normal Lumbar Extension: Normal Lumbar R Side Kelly: Normal Lumbar L Side Kelly: Normal Lumbar R Side-Bend: Normal Lumbar L Side-Bend: Normal Lumbar R Rotation: Normal Lumbar L Rotation: Normal TREATMENT: Therapeutic Exercise: 1: SciFit stepper x 5 min, level 3.0 seat 12 1:1 throughout, subjective collected 2: hook lying B hip adduction 3x15 3: hook lying PPT 2x10 4: TA bracing hook lying 10x5 sec hold Skilled Intervention: Patient was educated in proper exercise technique and purpose for exercises. Skilled judgment was used in selection of appropriate interventions. Correct performance of therapeutic exercises was facilitated with verbal and visual cuing. Additional time necessary for assessing progress toward goals due to DC today. Educated patient on rationale for performing exercises in regards to decreasing fatigue , increase ease of ADL, and ROM and function . Patient education as noted. Billing Therapeutic Exercise Treatment Minutes: 25 Skilled Treatment Time Minutes (timed and untimed codes): 25 Total Session Time (minutes): 25 Session Start Time : 817 Session Stop Time : 842 Lashay Lara PT documented in this encounterShelby [facility]04-01-2024 Miscellaneous Notes* Telephone Encounter - Tonia Varela OCCA - 07/08/2023 11:35 AM EDT TC to patient who states she is taking Vit D once a week. MANDO Keene * Telephone Encounter - Eliana Curtis APRN.CNP - 07/08/2023 11:25 AM EDT Please clarify with patient if she is taking the vit d once or twice a week. Current instructions are confusing. Also I am sending in the sertraline for 90 supply versus the 30 day supply. Thank you Eliana Curtis APRN.GERHARD * Telephone Encounter - Nicky Gandara LPN - 07/08/2023 10:54 AM EDT Patient has been identified by name and date of : Patient phones for refill(s): Requested Prescriptions Pending Prescriptions Disp Refills sertraline (ZOLOFT) 50 mg tablet 30 tablet 1 Sig: Take 1 tablet by mouth once daily. ergocalciferol 50,000 unit capsule (VITAMIN D2, DRISDOL) 24 capsule 3 Sig: Take 1 capsule by mouth two times a week. TO BE TAKEN ORALLY DIRECTED. Take 1 tablet by mouth twice weekly c7lisem, then decrease to 1 tablet weekly. Date of last office visit in primary care: 07/02/2023 Date of next office visit in primary care: 07/16/2023 Please advise. Thank you. Nicky Gandara LPN. documented in this encounterShelby [facility]03-26-2024 Miscellaneous Notes* Telephone Encounter - Radha Dixon LPN - 07/02/2023 11:08 AM EDT Patient notified and voiced her understanding. * Telephone Encounter - Eliana Curtis APRN.CNP - 07/02/2023 10:55 AM EDT Hold losartan and monitor blood pressure at home. She will need to follow up in 2 weeks to review home Bps and dizziness. Thank you Eliana Curtis APRN.CNP * Telephone Encounter - Marii Mcclain RN - 07/02/2023 10:41 AM EDT Patient calls to report that she is taking the metoprolol XL 100 mg in the evening. Asking if she should still stop the losartan? Patient hasn't taken medication yet today. Marii Mcclain RN documented in this encounterShelby [facility]03-26-2024 Instructions* Patient Instructions* Eliana Curtis APRN.CNP - 07/02/2023 8:47 AM EDT Only use sensitive soap Use aquaphor lotion/cream to hands or heavy duty creams for eczema. documented in this encounterShelby [facility] Hospital03-26-2024 History of Present illness Narrative* Eliana Curtis APRN.CNP - 07/02/2023 8:25 AM EDT CC: Patient presents with: Yearly Exam HPI Gilma Garcia is a 53 year old female who presents today for annual physical exam. Exercise: gets sporadic irregular exercise with walking dog and taking steps. Diet: Watches diet for salt (salty snacks, added salt, processed frozen/canned foods), sugary/sweetsnacks, unhealthy fats: Yes Caffeine: 3 cups a day Water intake: 1 bottle a day HTN: Ms. Garcia indicates that she is feeling well and denies any symptoms referable to elevated blood pressure. Specifically denies headache, chest pain, palpitations, dyspnea, and peripheral edema. Patient denies any side effects of her medication(s) and is compliant with their regimen. Has nottaken her meds yet today. She does not check BP's generally. Does have small issues with dizziness if walking long distances but resolves with sitting down. Last 3 Encounter BP Readings: Date: BP: 07/02/2023 124/80 06/17/2023 130/72 05/20/2023 124/60 Depression and anxiety: Controlled well with treatment Sleep: is described as normal Alcohol use: does not drink any alcohol Drug use: No Appetite: good Suicidal Thoughts: No suicidal ideation, intent or plan Prediabetes: Diet controlled. Denies any increase in thirst hunger or urination. Hands with extreme dryness over this past winter. No history of skin issues and no change in soaps or detergents. Is not itchy but very painful and weems. Denies fever or drainage but does have peeling. REVIEW OF SYSTEMS General: no fevers, no chills, no night sweats, no recurrent infections, no change in appetite, no change in energy, and no significant changes in weight Respiratory: no cough, no wheezing, no shortness of breath, no hemoptysis Cardiovascular: no chest pain, no chest pressure, no palpitations, and no swelling GI: No nausea, vomiting, or diarrhea : No history of dysuria, frequency or incontinence Psych: PHQ2 is 0 Endocrine: no polyuria, no polyphagia, and no polydipsia Neurologic: No headache, weakness, numbness, memory loss, syncope. PAST MEDICAL HISTORY Diagnosis Date Acute cholecystitis Carpal tunnel syndrome, bilateral Cervical radiculopathy Chronic low back pain Chronic right-sided low back pain without sciatica 06/08/2022 Concussion 08/13/2022 GERD (gastroesophageal reflux disease) History of TIA (transient ischemic attack) HTN (hypertension) Hypokalemia Left hip pain 10/25/2022 Left knee pain 10/25/2022 Rib pain on right side 06/08/2022 Right shoulder pain 08/13/2022 SOB (shortness of breath) Vitamin D deficiency PAST SURGICAL HISTORY Procedure Laterality Date COLONOSCOPY 04/25/2023 LAPAROSCOPY SURG CHOLECYSTECTOMY 05/23/2015 TONSILLECTOMY PRIMARY/SECONDARY <AGE 11 Tonsillectomy TUBAL LIGATION HX 1993 VAGINAL HYSTERECTOMY UTERUS 250 GM/< 2015 ALLERGIES Mobic [Meloxicam], Naproxen, Prednisone, Tylenol #3 [Codeine], and Vicodin [Hydrocodone-Acetaminophen] MEDICATIONS ibuprofen (MOTRIN) 800 mg tablet Take 1 tablet by mouth every 8 hours as needed for pain. Take withfood. acetaminophen (TYLENOL EXTRA STRENGTH) 500 mg tablet Take 2 tablets by mouth every 8 hours as needed for pain. losartan (COZAAR) 25 mg tablet take 1 tablet by mouth once daily. metoprolol succinate ER (TOPROL XL) 100 mg take 1 tablet by mouth every day diclofenac (VOLTAREN ARTHRITIS PAIN) 1 % topical gel Apply 4 g to affected area four times daily. sertraline (ZOLOFT) 50 mg tablet Take 1 tablet by mouth once daily. polyethylene glycol 3350 (MIRALAX) 17 gram/dose powder For colonoscopy prep naproxen (NAPROSYN) 500 mg tablet Take 1 tablet by mouth two times a day with meals. ergocalciferol 50,000 unit capsule (VITAMIN D2, DRISDOL) Take 1 capsule by mouth two times a week. TO BE TAKEN ORALLY DIRECTED. Take 1 tablet by mouth twice weekly [id number], then decrease to 1 tablet weekly. FAMILY HISTORY Problem Relation Age of Onset Hypertension Mother Hypertension Father Coronary Artery Disease Mother Coronary Artery Disease Father Cancer Mother Breast Cancer Father Lung Social History Tobacco Use Smoking status: Never Smokeless tobacco: Never Vaping Use Vaping Use: Never used Substance Use Topics Alcohol use: No Drug use: No PHYSICAL EXAM BP 124/80 (BP Site: Left Arm, BP Position: Sitting, BP Cuff Size: Large Adult) Pulse 78 Resp 16 Ht 162 cm (5' 3.78) Wt 91.2 kg (201 lb) LMP 09/26/2014 (Exact Date) BMI 34.74 kg/m General Appearance: well appearing, in no acute distress, alert Pysch: mood and affect broad and appropriate Skin: bilateral hands extremely dry extending into bilateral wrists. Areas of peeling and irritation to pinky side of hand and extending towards wrist. Eyes: PERRLA, EOM's intact, conjunctiva pink and moist, no icterus, sclera white, non-injected Neck: Thyroid normal size and symmetric without palpable nodules, Neck supple, No adenopathy Lymph nodes: No cervical lymphadenopathy and No supraclavicular lymphadenopathy Lungs: Lungs clear to auscultation. No wheezing, rhonchi, rales. Heart: RRR without murmur, gallop, or rubs. No ectopy Abdomen: Abdomen soft, non-tender. Bowel sounds normal. No masses, organomegaly Neurological: Gait normal. Reflexes normal and symmetric. Sensation intact., speech normal, mental status intact, muscle tone normal, muscle strength normal BP Controlled (<130/80) Never done Colorectal Cancer Screening Never done Depression Assessment due on 04/08/2023 Influenza Vaccine(1) due on 10/06/2023 Covid-19 Vaccine(3 - 2022- season) due on 01/16/2024 DTaP,Tdap,Td Vaccine(2 - Td or Tdap) due on 07/01/2024 Hepatitis B Vaccine(1 of 3 - 19+ 3-dose series) due on 07/01/2024 HIV Screening due on 07/01/2024 Shingrix Vaccine(1 of 2) due on 07/01/2024 Mammogram Screening due on 04/12/2024 Annual PCP Team Chronic Disease Visit due on 07/01/2024 Diabetes Screening due on 06/20/2026 Lipid Screening due on 06/20/2028 Hepatitis C Screening Completed Pap Testing Discontinued HPV Testing Discontinued ASSESSMENT/PLAN: 1. Annual physical exam - ICD9: V70.0, ICD10: Z00.00 (primary diagnosis) - Counseled on healthy diet and regular exercise - Calcium intake with supplements or by diet of 1000 mg/day for under 50, 1200- 1500 mg/day for 50+ - Discussed need and benefit for weight loss. BMI 34.74 kg/(m^2) - Depression screening tool completed and reviewed with patient. Based on score and interview, patient is already diagnosed with depression and recommended no further intervention at this time. - Follow up for annual exam in one year 2. Hypertension, essential - ICD9: 401.9, ICD10: I10 - Controlled but has onto taken her meds yet this morning, does not monitor at home, and has had some dizziness. Possibly BP at home too low. Is to monitor at home and message me with which meds she takes at night and which in AM so we can trial holding or decreasing dose. - follow up in 6 weeks. - Recommend home blood pressure monitoring, to bring results to next visit - Encouraged sodium restriction, DASH or Mediterranean diet - Recommend regular aerobic exercise 3. Dizziness - ICD9: 780.4, ICD10: R42 As above Assessment normal 4. Prediabetes - ICD9: 790.29, ICD10: R73.03 Controlled with diet at this time 5. Anxiety and depression - ICD9: 300.00, 311, ICD10: F41.9, F32.A Controlled at this time - Reviewed concept of neurochemical imbalance [facility] depression/anxiety, treatment options and benefits of counseling in combination with medication. Also reviewed benefits of sleep hygeine, diet and exercise - Instructed patient to contact office or [id number] after-hours promptly should condition worsen or any new symptoms appear. - Counseling Center [facility] and after hours crisis line 6. Dry skin - ICD9: 701.1, ICD10: L85.3 Sensitive soap and aquaphor as discussed 7. Dermatitis - ICD9: 692.9, ICD10: L30.9 - possible atopic dermatitis. - discussed skin care of rash - follow up if symptoms persist or worsen. - triamcinolone as ordered Prescription instructions reviewed with patient as applicable. Potential red flag symptoms discussed with the patient. Reviewed appropriate action plan to take if red flag symptoms occur. Patient agreeable to treatment plan. Eliana Curtis APRN.CNP documented in this encounterS[facility] History of Present illness Narrative* Lashay Lara, PT - 2023 10:19 AM EDT Episode Visit Count: 5 Therapist That Will Accept/Oversee The Plan Of Care: Lashay Lara Start of Care Date: 05/29/23 Onset Date: 04/14/23 Plan of Care Certification Date: 05/29/23 Next Certification Due Date: 07/03/23 Patient Identified by Name and Date of : Yes REHABILITATION AND SPORTS THERAPY PHYSICAL THERAPY TREATMENT NOTE ASSESSMENT: Gilma Rebecca JohnGarcia tolerated the session with fatigue and expected muscle soreness. Shedemonstrated improvements in technique with TA bracing. The patient will continue to benefit from ongoing skilled physical therapy to progress toward set goals. PLAN FOR NEXT VISIT: Continue with light core strengthening. SUBJECTIVE: Pt states that her pain is starting to come down some. Still doing exercises, but not as many. Doing less housework. Pt still having difficulty putting her shoes on and bending over. Pain: Pain Pain Level: 7 Pain Location: Coccyx, Back Description: Aching Frequency: Continuous Post Treatment Pain Post Treatment Pain Level: 6 Post Treatment Pain Location: Coccyx, Back OBJECTIVE MEASURES WITH LEVEL OF FUNCTION: Good TA activation noted. TREATMENT: Therapeutic Exercise: 1: SciFit stepper x 5 min, level 2.0 seat 13 1:1 throughout, subjective collected 2: hook lying B hip adduction 2x15, 3-5 sec hold each 3: TA bracing hook lying 10x5 sec hold 4: TA bracing hook lying 10x5 sec hold 5: TA bracing in hooklying with LE slides 2x10 6: Hip adduction isometric with ball with pt in hook lying 3x10 Skilled Intervention: Patient was educated in proper exercise technique and purpose for exercises. Skilled judgment was used in selection of appropriate interventions. Correct performance of therapeutic exercises was facilitated with verbal and visual cuing. Billing Therapeutic Exercise Treatment Minutes: 40 Skilled Treatment Time Minutes (timed and untimed codes): 40 Total Session Time (minutes): 40 Session Start Time : 1016 Session Stop Time : 1056 BINA Garcia PT documented in this encounterS[facility]03[facility] History of Present illness Narrative* Lashay Lara PT - 06/18/2023 8:30 AM EDT Program_ID:[id number] Access Code: [email or web address] URL: [email or web address] Date: 06-18-2023 Prepared By: Branden Martinez Program Notes Exercises - Supine Hip Adduction Isometric with Ball - 2-3 x daily - 7 x weekly - 3-4 sets - 15 reps - Hooklying Clamshell with Resistance - 2-3 x daily - 7 x weekly - 4 sets - 15 reps - Supine Transversus Abdominis Bracing with Heel Slide - 2-3 x daily - 7 x weekly - 4 sets - 10 reps * Jaen Lashay, PT - 06/18/2023 8:07 AM EDT Episode Visit Count: 4 Therapist That Will Accept/Oversee The Plan Of Care: Lashay Lara Start of Care Date: 05/29/23 Onset Date: 04/14/23 Plan of Care Certification Date: 05/29/23 Next Certification Due Date: 07/03/23 REHABILITATION AND SPORTS THERAPY PHYSICAL THERAPY TREATMENT NOTE ASSESSMENT: Gilma Garcia tolerated the session with expected muscle soreness. She demonstrated difficulty with correct technique with completion of TA bracing. Some improvement demonstrated with verbal cues. The patient will continue to benefit from ongoing skilled physical therapy to progress toward set goals. PLAN FOR NEXT VISIT: SUBJECTIVE: Pt. states she thinks she over did it with some of the HEP exercises.She completed the bridges 2x/day. She denies pain with completion of HEP. She states she thinks she did too many reps,but did as many of Rx'd (only 2 sets of 8) Pain: Pain Pain Level: 9 Pain Location: Coccyx, Back Frequency: Continuous Post Treatment Pain Post Treatment Pain Level: 7 Post Treatment Pain Location: Coccyx, Back Post Treatment Pain Description: Sore OBJECTIVE MEASURES WITH LEVEL OF FUNCTION: TREATMENT: Therapeutic Exercise: 1: SciFit stepper x 5 min, level 2.0 seat 13 1:1 throughout, subjective collected 2: hook lying B hip adduction 2x15, 3-5 sec hold each 3: *bridges dc and switched out with hook lying hip abd to avoid low back pain 4: *Access Code: [email or web address] URL: [email or web address] Date: 06/18/2023 Prepared by: Lashay Carias Exercises - Supine Hip Adduction Isometric with Ball - 2-3 x daily - 7 x weekly -3-4 sets - 15 reps - 3-5 hold - Hooklying Clamshell with Resistance - 2-3 x daily - 7 x weekly - 4 sets - 15 reps - Supine Transversus Abdominis Bracing with Heel Slide - 2-3 x daily - 7 x weekly - 4sets - 10 reps - 1 hold 5: TA bracing hook lying 10x5 sec hold 6: TA bracing hook lying 1x10, 1 sec hold each verbal cue: Breathe out, belly button comes in and down. Skilled Intervention: Patient was educated in proper exercise technique and purpose for exercises. Reviewed and educated patient on additions/changes for home exercise program as above (*). Skilled judgment was used in selection of appropriate interventions. Provided written instruction for home exercise program to facilitate proper performance and compliance. Correct performance of therapeutic exercises was facilitated with verbal, visual, and tactile cuing. Educated patient on rationale for performing exercises in regards to decreasing fatigue , increase ease of ADL, and ROM and function . Patient education as noted. Self-Halfway Management: 1: suggested use of pillow between the knees when pt. sleeps -- pt. tried this on clinic table Skilled Intervention: Skilled judgment in the selection of proper modification for activity of daily living/home management based on clinical presentation, deficits, and needs. Educated the patient regarding recommendations and provided written instruction to facilitate compliance. Provided written instruction for activities of daily living techniques to facilitate proper performance and compliance. Reviewed patient specific diagnosis in relation to activities of daily living/home management. Activity progression based on professional judgement. Reviewed and educated patient on additions/changes for home program as noted above with an (*). Provided written instruction for home program to facilitate proper performance and compliance. Correct performance of home program was facilitated with verbal, visual, and tactile cueing. Billing Therapeutic Exercise Treatment Minutes: 35 Self-Care/Home Management Treatment Minutes: 5 Skilled Treatment Time Minutes (timed and untimed codes): 40 Total Session Time (minutes): 40 Session Start Time : 0802 Session Stop Time : 08 Lashay Lara PT documented in this encounterS[facility]03-[facility] History of Present illness Narrative* Lavonne Seay PA-C - 06/17/2023 8:20 AM EDT CC: Patient presents with: Follow Up: from fall on ice HPI Gilma Garcia is a 52 year old female who presents today for f/u coccydynia. Last seen 05/20/23 for coccydynia secondary to fall 04/15/23. She is currently undergoing PT, about 3 sessions in so she reports that it's starting to improve. She is also doing home exercises daily. That nghia seems to be working. Using 800 mg IBU at least once a day, if not more. States she has an upcoming appt with Eliana end of June and wonders if we should order labs. REVIEW OF SYSTEMS All other systems negative. PAST MEDICAL HISTORY Diagnosis Date Acute cholecystitis Carpal tunnel syndrome, bilateral Cervical radiculopathy Chronic low back pain Chronic right-sided low back pain without sciatica 06/08/2022 Concussion 08/13/2022 GERD (gastroesophageal reflux disease) History of TIA (transient ischemic attack) HTN (hypertension) Hypokalemia Left hip pain 10/25/2022 Left knee pain 10/25/2022 Rib pain on right side 06/08/2022 Right shoulder pain 08/13/2022 SOB (shortness of breath) Vitamin D deficiency PAST SURGICAL HISTORY Procedure Laterality Date COLONOSCOPY 04/25/2023 LAPAROSCOPY SURG CHOLECYSTECTOMY 05/23/2015 TONSILLECTOMY PRIMARY/SECONDARY <AGE 11 Tonsillectomy TUBAL LIGATION HX 1993 VAGINAL HYSTERECTOMY UTERUS 250 GM/< 2015 ALLERGIES Mobic [Meloxicam], Naproxen, Prednisone, Tylenol #3 [Codeine], and Vicodin [Hydrocodone-Acetaminophen] MEDICATIONS losartan (COZAAR) 25 mg tablet take 1 tablet by mouth once daily. metoprolol succinate ER (TOPROL XL) 100 mg take 1 tablet by mouth every day diclofenac (VOLTAREN ARTHRITIS PAIN) 1 % topical gel Apply 4 g to affected area four times daily. sertraline (ZOLOFT) 50 mg tablet Take 1 tablet by mouth once daily. polyethylene glycol 3350 (MIRALAX) 17 gram/dose powder For colonoscopy prep naproxen (NAPROSYN) 500 mg tablet Take 1 tablet by mouth two times a day with meals. ergocalciferol 50,000 unit capsule (VITAMIN D2, DRISDOL) Take 1 capsule by mouth two times a week. TO BE TAKEN ORALLY DIRECTED. Take 1 tablet by mouth twice weekly [id number], then decrease to 1 tablet weekly. ibuprofen (MOTRIN) 800 mg tablet Take 1 tablet by mouth every 8 hours as needed for pain. Take withfood. FAMILY HISTORY Problem Relation Age of Onset Hypertension Mother Hypertension Father Coronary Artery Disease Mother Coronary Artery Disease Father Cancer Mother Breast Cancer Father Lung Social History Tobacco Use Smoking status: Never Smokeless tobacco: Never Vaping Use Vaping Use: Never used Substance Use Topics Alcohol use: No Drug use: No PHYSICAL EXAM BP 130/72 (BP Site: Left Arm, BP Position: Sitting, BP Cuff Size: Large Adult) Pulse 70 Temp 36.3 C (97.3 F) Resp 12 Ht 160 cm (5' 3) Wt 92.1 kg (203 lb) LMP 09/26/2014 (Exact Date) SpO2 97% BMI 35.96 kg/m General Appearance: well appearing, in no acute distress, alert Psych: mood and affect broad and appropriate Skin: Skin color, texture, turgor normal for age Lungs: Lungs clear to auscultation. No wheezing, rhonchi, rales. Heart: RRR without murmur, gallop, or rubs. Extremities: No gross deformities, significant edema, skin discoloration, clubbing or cyanosis. Neurological: Gait normal. No focal neurological deficits. Sensation grossly intact. ASSESSMENT/PLAN: 1. Traumatic coccydynia - ICD9: 724.79, ICD10: M53.3 (primary diagnosis) Improving with PT. Continue with current regimen as discussed. Ibuprofen okay to use short-term, but explained that we need to keep an eye on kidney function. Advise alternating with Tylenol and ibuprofen every 3-4 hours for breakthrough discomfort. - IBUPROFEN 800 MG TABLET - ACETAMINOPHEN 500 MG TABLET 2. Prediabetes - ICD9: 790.29, ICD10: R73.03 We will check updated labs prior to upcoming appointment - LIPID PANEL BASIC - HGB A1C - COMP METABOLIC PANEL 3. Hypertension, essential - ICD9: 401.9, ICD10: I10 - Controlled - Continue current medications - Recommend home blood pressure monitoring, to bring results to next visit - Encouraged sodium restriction, DASH or Mediterranean diet - Recommend regular aerobic exercise - CBC + DIFF - LIPID PANEL BASIC - HGB A1C - COMP METABOLIC PANEL 4. Low HDL (under 40) - ICD9: 272.5, ICD10: E78.6 - Control undetermined, due for labs - Counseled on healthy diet and regular exercise - Discussed need for and benefit of weight loss. BMI 35.96 kg/(m^2) - LIPID PANEL BASIC - HGB A1C - COMP METABOLIC PANEL Follow-up as planned for routine issues and to discuss labs on 07/02/2023 with Eliana Curtis CNP Prescription instructions reviewed with patient as applicable. Potential red flag symptoms discussed with the patient. Reviewed appropriate action plan to take if red flag symptoms occur. Patient agreeable to treatment plan. Lavonne Seay PA-C documented in this encounterShelby [facility]03-07-[facility]24 History of Present illness Narrative* Margie Griffith PTA - 06/13/2023 9:22 AM EST Program_ID:[id number] Access Code: [email or web address] URL: [email or web address] Date: 06-13-2023 Prepared By: Branden Martinez Program Notes Exercises - Hooklying Transversus Abdominis Palpation - 3 x daily - 7 x weekly - 3-5 sets - 10 reps - Supine Transversus Abdominis Bracing - Hands on Thighs - 3 x daily - 7 x weekly - 3-5 sets - 5 reps - Supine Hip Adduction Isometric with Ball - 3 x daily - 7 x weekly - 3 sets - 8 reps - Supine Bridge - 3 x daily - 7 x weekly - 2 sets - 10 reps * Lashay Lara, PT - 06/13/2023 8:49 AM EST Episode Visit Count: 3 Therapist That Will Accept/Oversee The Plan Of Care: Lashay Lara Start of Care Date: 05/29/23 Onset Date: 04/14/23 Plan of Care Certification Date: 05/29/23 Next Certification Due Date: 07/03/23 Patient Identified by Name and Date of : Yes REHABILITATION AND SPORTS THERAPY PHYSICAL THERAPY TREATMENT NOTE ASSESSMENT: Gilma Rebecca Radha tolerated the session with fatigue and expected muscle soreness. Shedemonstrated improvements in PPT with biofeedback. The patient will continue to benefit from ongoing skilled physical therapy to progress toward set goals. PLAN FOR NEXT VISIT: Asses response to bridges for HEP. SUBJECTIVE: Pt reports that her back is sore. Feels that the exercises from last visit were maybe too mcuh. Was at a 9/10 when leaving the session, put heating pad on her back and that made it feel better. Pain: Pain Pain Level: 8 Pain Location: Coccyx Description: Aching, Sharp Frequency: Continuous Post Treatment Pain Post Treatment Pain Level: 8 Post Treatment Pain Location: Coccyx Post Treatment Pain Description: Sore OBJECTIVE MEASURES WITH LEVEL OF FUNCTION: Easily fatigued with bridges. TREATMENT: Therapeutic Exercise: 1: Attempted piriformis stretch in supine, painful,unable to complete bilaterally 2: Supine LTR x8 each direction (painfl in middle of the back going both directions.) 3: Hooklying TA activation via shoulder extension 2x10 with 2 second holds 4: Hip adduction isometric with ball with pt in hook lying 3x10 5: *Bridges 2x8 Skilled Intervention: Patient was educated in proper exercise technique and purpose for exercises. Reviewed and educated patient on additions/changes for home exercise program as above (*). Skilled judgment was used in selection of appropriate interventions. Provided written instruction for home exercise program to facilitate proper performance and compliance. Correct performance of therapeutic exercises was facilitated with verbal and visual cuing. Neuromuscular Re-Education: 1: PPT with biofeedback 20 mmHg to 40 to 60 mmHg 2 sets of 10 2: PPT with alt toe taps with biofeedback 20 mmHg to 40 to 60 mmHg 3 sets of 8 Skilled Intervention: Skilled judgment used to assess appropriate program for balance and coordination activity. Billing Therapeutic Exercise Treatment Minutes: 27 Neuromuscular Re-Education Treatment Minutes: 12 Skilled Treatment Time Minutes (timed and untimed codes): 39 Total Session Time (minutes): 39 Session Start Time : 844 Session Stop Time : 923 BINA Garcia PT documented in this encounterShelby [facility]03-[facility]-2024 History of Present illness Narrative* Lashay Lara PT - 06/11/2023 8:03 AM EST Episode Visit Count: 2 Therapist That Will Accept/Oversee The Plan Of Care: Lashay Lara Start of Care Date: 05/29/23 Onset Date: 04/14/23 Plan of Care Certification Date: 05/29/23 Next Certification Due Date: 07/03/23 Patient Identified by Name and Date of : Yes REHABILITATION AND SPORTS THERAPY PHYSICAL THERAPY TREATMENT NOTE ASSESSMENT: Gilma Garcia tolerated the session with fatigue and expected muscle soreness. Shedemonstrated improvements in technique with TA activation. The patient will continue to benefit from ongoing skilled physical therapy to progress toward set goals. PLAN FOR NEXT VISIT: Continue with core strengthening in hookloying with use of biofeedback SUBJECTIVE: Pt reports that she took some Tylenol, but hasn't kicked in yet. Pt asks to leave appointment early due to having another appointment following therapy today. Pain: Pain Pain Level: 9 Pain Location: Coccyx Description: Aching, Sharp Frequency: Continuous Post Treatment Pain Post Treatment Pain Location: Coccyx Post Treatment Pain Description: Sore OBJECTIVE MEASURES WITH LEVEL OF FUNCTION: Improved technique with PPT with biofeedback. TREATMENT: Therapeutic Exercise: 1: Hooklying TA activation via shoulder extension 2x10 wiht 2 second holds 2: Hip adduction isometric with ball with pt in hook lying 2x10 Skilled Intervention: Patient was educated in proper exercise technique and purpose for exercises. Skilled judgment was used in selection of appropriate interventions. Correct performance of therapeutic exercises was facilitated with verbal and visual cuing. Neuromuscular Re-Education: 1: PPT with biofeedback 20 mmHg to 40 to 60 mmHg 2 sets of 10 2: PPT 20 mmHg to 40 to 60 mmHg 2 sets of 5, 10 sec hold, verbal cues for technique and to avoid holding her breath 3: PPT with alt toe taps with biofeedback 20 mmHg to 40 to 60 mmHg 2 sets of 10 Skilled Intervention: Skilled judgment used to assess appropriate program for balance and coordination activity. Billing Therapeutic Exercise Treatment Minutes: 10 Neuromuscular Re-Education Treatment Minutes: 21 Skilled Treatment Time Minutes (timed and untimed codes): 31 Total Session Time (minutes): 31 Session Start Time : 0800 Session Stop Time : 830 BINA Garcia PT documented in this encounterShelby [facility]02-27-2024 Miscellaneous Notes* Telephone Encounter - Hamilton HENNINGN Alisia Gonzalez - 06/04/2023 10:21 AM EST Patient has been identified by name and date of : No Patient phones for refill(s): Requested Prescriptions Pending Prescriptions Disp Refills losartan (COZAAR) 25 mg tablet [Pharmacy Med Name: losartan 25 mg tablet] 30 tablet 11 Sig: take 1 tablet by mouth once daily. metoprolol succinate ER (TOPROL XL) 100 mg [Pharmacy Med Name: metoprolol succinate ER 100 mg tablet,extended release 24 hr] 30 tablet 11 Sig: take 1 tablet by mouth every day Date of last office visit in primary care: 10/03/2018 Date of next office visit in primary care: Visit date not found Please advise. Thank you. Alisia Villasenor LPN. documented in this encounterShelby [facility] Hospital02-21-2024 History of Present illness Narrative* Lashay Lara, PT - 05/29/2023 8:40 AM EST Program_ID:[id number] Access Code: [email or web address] URL: [email or web address] Date: 05-29-2023 Prepared By: Branden Martinez Program Notes Exercises - Hooklying Transversus Abdominis Palpation - 3 x daily - 7 x weekly - 3-5 sets - 10 reps - Supine Transversus Abdominis Bracing - Hands on Thighs - 3 x daily - 7 x weekly - 3-5 sets - 5 reps - Supine Hip Adduction Isometric with Ball - 3 x daily - 7 x weekly - 3 sets - 8 reps * Lashay Lara, PT - 05/29/2023 8:11 AM EST Episode Visit Count: 1 Therapist That Will Accept/Oversee The Plan Of Care: Lashay Lara Start of Care Date: 05/29/23 Onset Date: 04/14/23 Plan of Care Certification Date: 05/29/23 Next Certification Due Date: 07/03/23 REHABILITATION AND SPORTS THERAPY PHYSICAL THERAPY EVALUATION PLAN OF CARE: Assessment: Gilma Garcia presents with diagnosis of traumatic coccydynia status post fall that interferes with bending, cleaning, bed mobility, sitting (car transfers) . She presents with impairments in ADL's, balance, flexibility, gait, independence in exercise, joint mobility, overall function, patient reported outcome measures, posture, range of motion, strength, symptom management, and tissue tenderness. PROMIS (Patient-Reported Outcomes Measurement Information System) scores were reviewed and physical function domain and self efficacy domain identified as a rehabilitation concern. Prognosis for therapy is Fair due to: chronic nature of impairments, clinical presentation, multipleco- morbidities, coping skills, limited tolerance to activity, poor historian, poor understanding of deficits, decreased motivation, limited compliance with previous therapy . She will benefit from skilled therapy services to meet the goals established for this plan of care as noted below. Assessment Fall Risk : Complex at risk Classification Low Back Pain Classification: Central Mechanism/Nociplastic Pain Goals for Episode of Care: created on 05/29/23 through 07/10/23 Independent in home exercises. Patient will decrease pain rating by 2 points to meet minimal clinical important difference for numeric pain rating scale. Restore pain-free lumbar ROM to moderate to minimal limitation to allow for transfers and upright posture. Stand / Walk 30-45 min without increased pain/symptoms.Pt. reports only tolerating about 20 min. Initial eval. Sleep through night without pain/symptoms. >4-5 consecutive hours without waking due to coccyx pain. Sit 45 min to 1 hours without pain/symptoms to allow for seated activities or rest. Maintain proper sitting posture throughout session Patient will be able to tolerate functional activities, completing house work for 45 min (includingintermittent rest as needed) without increased symptoms.Pt. reports this took her 30 minutes beforeher fall. Patient Goals: tolerate my daily housework Planned Interventions, Frequency, and Duration: Current Frequency: 2x/week Duration: 6 weeks Total Number of Visits Planned: 12 Planned Treatment Interventions: Therapeutic exercise (40599), Neuromuscular re- education (60830), Manual therapy (74891), Therapeutic activities (60229), Self- senior living management (47710), Gait Training (25626) PLAN FOR NEXT VISIT: assess compliance and technique with TA hooklying and hip add isometrics Patient demonstrates good understanding of plan of care and treatment. The above goals and plan of care were discussed and agreed upon by patient/family. SUBJECTIVE: for coccyx pain s/p fall on ice 04/14/23. Pt. was seen in ED the next day. Pt. reports 1 previous fall last summer at a music festival which resulted in UE pain for which she was seen by PT. Pt. does not amb with an AD but does state that she does not have good balance. Denies any other falls. Deniesbowel or bladder control concerns. No pain with BM or urination. Pain is constant with prolonged sitting and transfers out of car. Patient Goals: tolerate my daily housework Functional Limitations: bending, cleaning, bed mobility, sitting (car transfers) Prior Level of Function: Independent without limitations Relevant History Employment: (not currently working) Intake Information: Prescription present Previous Treatment: (tylenol, Rx'd voltaren) Falls Interview: Two or more falls in the last year Falls Intervention: More thorough falls assessment to be performed Falls History # of falls in past year: 2 # of falls resulting in an injury in past year: 2 Red Flags Vertebral Fracture Red Flags: Female Vertebral Fracture Clinical Reasoning: Proceed with caution due to the above (1- 2) risk factors Abdominal Aortic Aneurysm Clinical Reasoning: No identified risk factors. Cancer Red Flags: Age >50 or <20 Cancer Clinical Reasoning: Proceed with caution Infection Clinical Reasoning: No identified risk factors. Cauda Equina Syndrome Clinical Reasoning: No identified risk factors. Red Flags - Cervical Cancer Red Flags: Age >50 or <20 Cancer Clinical Reasoning: Proceed with caution Infection Clinical Reasoning: No identified risk factors. Spine History Symptoms Location at Onset: Buttock Symptoms Since Onset: Unchanging Pain is Worse Always: Sitting, Bending, Prolonged positions Pain is Better Always: Lying (side lying) Sleep Affected by Pain: Pain keeps from falling asleep Pain: Pain Pain Level: 9 Pain Location: Coccyx Description: Aching, Sharp Frequency: Continuous Post Treatment Pain Post Treatment Pain Level: 8 Post Treatment Pain Location: Coccyx Post Treatment Pain Description: Sore Post Treatment Symptoms: pt. reports feeling the abdominal muscles jesse with HEP PROMIS Scales Higher is Better 05/27/2023 02/25/2023 01/29/2023 Phys Func - Score 37 (moderate dysfunction) 45 (within normal limits) 41 (mild dysfunction) Phys Func - Percentile 10% 31% 18% Self-Eff Symptom - Score 37 (Low) 46 (Average) 39 (Low) Self-Eff Symptom - Percentile 10% 34% 14% T-scores: mean of general population = 50. 5 points is clinically meaningfully difference Percentiles provide an indication of how the patient's score ranks in relation to the general population. Higher percentile rankings indicate better function/quality of life. 50th percentile is the average of the general population and indicates half of respondents had a worse score. OBJECTIVE MEASURES WITH LEVEL OF FUNCTION: Posture / Alignment Posture: Increased thoracic kyphosis, Forward head, Rounded shoulders, Slump, Decreased lumbar lordosis Sitting Posture: Decreased lumbar lordosis, Slump Effects of Posture Correction: it gives it a little bit of relief. Sensation - Lumbar Sensation: Grossly Intact Lumbar Spine AROM Lumbar Flexion: Moderate limitation, Produces Lumbar Extension: Major limitation, Peripheralizing Lumbar R Side Kelly: Minimal limitation, Produces Lumbar L Side Kelly: Minimal limitation, Produces Lumbar R Side-Bend: Major limitation, Produces (pt. reports 01/15) Lumbar L Side-Bend: Moderate limitation, Produces Lumbar R Rotation: Normal Lumbar L Rotation: Normal Special Tests - Hip and Spine Hip and Spine Special Tests: SI Cluster Tests SI Compression Test: Left Positive Sacral Thrust: Left Positive, Right Positive Mobility Rolling: Independent Supine To Sit: Independent (no use of arms) Sit to Supine: Independent (painful) Stand To Sit: Independent (without need for arm rests) Gait Gait: Independent Gait Distance (feet): 40 Gait Device: None Gait Deviations: Left Lower Extremity Gait Deviations Left Lower Extremity: Heel strike during initial stance decreased, Lacks hip extension beyond mid-stance, Push off during terminal stance decreased, Stance time decreased Gait Observation: heel strike intermittent LLE Education: Education Learning Preferences: Demonstration, Explanation, Performance, Printed Materials Barriers: Acuity of Illness, Desire and Motivation Learning/educational needs: Home exercise program, Posture, Plan of Care Education Provided: Yes, see treatment interventions for education provided Education Provided To: Patient Education Mode/Type: Demonstration, Explanation/Discussion, Literature/Printed Materials, Performance Response to Education/Teach Back: States/Identifies, Return Demonstration TREATMENT: PT Treatment Interventions: Therapeutic Exercise, Self-Halfway Management, Neuromuscular Re-Education Evaluation Therapeutic Exercise: 1: *Access Code: [email or web address] URL: [email or web address] Date: 05/29/2023 Prepared by: Lashay Carias Exercises - Hooklying Transversus Abdominis Palpation - 3 x daily - 7 x weekly - 3-5 sets - 10 reps - 1 hold - Supine Transversus Abdominis Bracing - Hands on Thighs - 3 x daily - 7x weekly - 3-5 sets - 5 reps - 10 hold - Supine Hip Adduction Isometric with Ball - 3 x daily - 7 xweekly - 3 sets - 8 reps - 5 hold Skilled Intervention: Patient was educated in proper exercise technique and purpose for exercises. Skilled judgment was used in selection of appropriate interventions. Provided written instruction for home exercise program to facilitate proper performance and compliance. Correct performance of therapeutic exercises was facilitated with verbal, visual, and tactile cuing. Educated patient on rationale for performing exercises in regards to decreasing fatigue , increase ease of ADL, and ROM and function . Patient education as noted. Neuromuscular Re-Education: 1: TA activation hook lying 20 mmHg to 40 to 60 mmHg 2 sets of 10, verbal cues for technique and toavoid holding her breath 2: TA activation hook lying 20 mmHg to 40 to 60 mmHg 2 sets of 5, 10 sec hold, verbal cues for technique and to avoid holding her breath Skilled Intervention: Skilled judgment used to assess appropriate program for balance and coordination activity. Education in sitting posture using a lumbar roll and slouch/correction for body awareness. Education in proprioceptive/kinesthetic awareness during hook lying TA activation using biofeedback. Education and demonstration for posture and positioning for tone management. Patient education as noted. Self-Halfway Management: 1: postural and lumbar towel roll education 2: discussed walking with an AD when the side walks are icy by her apt Skilled Intervention: Skilled judgment in the selection of proper modification for activity of daily living/home management based on clinical presentation, deficits, and needs. Provided written instruction for activities of daily living techniques to facilitate proper performance and compliance. Reviewed patient specific diagnosis in relation to activities of daily living/home management. Activity progression based on professional judgement. Maximum verbal cues for maintaining neutral spine alignment. Provided written instruction for home program to facilitate proper performance and compliance. Correct performance of home program was facilitated with verbal, visual, and tactile cueing. Billing * Evaluation Low Complexity: 1 Unit Therapeutic Exercise Treatment Minutes: 10 Neuromuscular Re-Education Treatment Minutes: 10 Self-Care/Home Management Treatment Minutes: 5 Skilled Treatment Time Minutes (timed and untimed codes): 45 Total Session Time (minutes): 50 Session Start Time : 804 Session Stop Time : 854 Lashay Lara, PT documented in [facility] encounterS[facility] History of Present illness Narrative* Lavonne Seay PA-C - 05/20/2023 4:52 PM EST CC: Patient presents with: Same Day Appointment: fell April and fx tailbone pain is 9/10 HPI+ Gilma Garcia is a 52 year old female who presents today for coccydynia status post fall that occurred in April falling on ice. Was intermittent initially, now consistently occurring. Hurts when she does her routine housework. Pain is ~9/10 on the pain scale. Taking Tylenol and it's not working. Hurts worse when she sits min extended period of time. Heat takes the edge off temporarily. Pt denies any saddle anesthesia, LE weakness, as well as any bowel/bladder incontinence. Went to [facility] on 04[place] - did XR of coccyx, as well as CT head-- No abnormalities found. REVIEW OF SYSTEMS See HPI All other systems negative. PAST MEDICAL HISTORY Diagnosis Date Acute cholecystitis Carpal tunnel syndrome, bilateral Cervical radiculopathy Chronic low back pain Chronic right-sided low back pain without sciatica 06/08/2022 Concussion 08/13/2022 GERD (gastroesophageal reflux disease) History of TIA (transient ischemic attack) HTN (hypertension) Hypokalemia Left hip pain 10/25/2022 Left knee pain 10/25/2022 Rib pain on right side 06/08/2022 Right shoulder pain 08/13/2022 SOB (shortness of breath) Vitamin D deficiency PAST SURGICAL HISTORY Procedure Laterality Date COLONOSCOPY 04/25/2023 LAPAROSCOPY SURG CHOLECYSTECTOMY 05/23/2015 TONSILLECTOMY PRIMARY/SECONDARY <AGE 11 Tonsillectomy TUBAL LIGATION HX 1993 VAGINAL HYSTERECTOMY UTERUS 250 GM/< 2015 ALLERGIES Mobic [Meloxicam], Naproxen, Prednisone, Tylenol #3 [Codeine], and Vicodin [Hydrocodone-Acetaminophen] MEDICATIONS sertraline (ZOLOFT) 50 mg tablet Take 1 tablet by mouth once daily. lidocaine 5% NIFEdipine 0.2% rectal ointment (CPD) Apply a pea-sized amount rectally twice daily and before each bowel movement polyethylene glycol 3350 (MIRALAX) 17 gram/dose powder For colonoscopy prep (Patient not taking: Reported on 05/06/2023) losartan (COZAAR) 25 mg tablet Take 1 tablet by mouth once daily. naproxen (NAPROSYN) 500 mg tablet Take 1 tablet by mouth two times a day with meals. omeprazole (PRILOSEC) 20 mg capsule Take 1 capsule by mouth daily before breakfast. 1/2 hr before meal. hydrocortisone (ANUSOL-HC) 2.5 % rectal cream by RECTAL route two times a day. Senna 8.6 mg tab Take 1 tablet by mouth two times a day. metoprolol succinate ER (TOPROL XL) 100 mg Take 1 tablet by mouth once daily. ergocalciferol 50,000 unit capsule (VITAMIN D2, DRISDOL) Take 1 capsule by mouth two times a week. TO BE TAKEN ORALLY DIRECTED. Take 1 tablet by mouth twice weekly [id number], then decrease to 1 tablet weekly. ibuprofen (MOTRIN) 800 mg tablet Take 1 tablet by mouth every 8 hours as needed for pain. Take withfood. FAMILY HISTORY Problem Relation Age of Onset Hypertension Mother Hypertension Father Coronary Artery Disease Mother Coronary Artery Disease Father Cancer Mother Breast Cancer Father Lung Social History Tobacco Use Smoking status: Never Smokeless tobacco: Never Vaping Use Vaping Use: Never used Substance Use Topics Alcohol use: No Drug use: No PHYSICAL EXAM BP 124/60 (BP Site: Left Arm, BP Position: Sitting, BP Cuff Size: Large Adult) Pulse 97 Resp 12 Ht 160 cm (5' 3) Wt 89.8 kg (198 lb) LMP 09/26/2014 (Exact Date) SpO2 99% BMI 35.07 kg/m General Appearance: well appearing, in no acute distress, alert Psych: mood and affect broad and appropriate Skin: Skin color, texture, turgor normal for age Lungs: Lungs clear to auscultation. No wheezing, rhonchi, rales. Heart: RRR without murmur, gallop, or rubs. BACK: Normal curvature of spine Localized tenderness in sacrococcygeal region. Straight leg test negative. Deep tendon patellar tendon reflexes 2+/4 Normal lower extremity strength, sensation in tactbilaterally. Extremities: No gross deformities, significant edema, skin discoloration, clubbing or cyanosis. Neurological: Gait normal. No focal neurological deficits. Sensation grossly intact. ASSESSMENT/PLAN: 1. Traumatic coccydynia - ICD9: 724.79, ICD10: M53.3 (primary diagnosis) Progressive discomfort since fall on coccyx 05/01 Minimal improvement w/ time and Tylenol use. Stretching exercises advised and/or handouts given, application of heat/ice advised, pain control addressed (advised sticking to NSAID versus Tylenol, option to trial on Voltaren). Referral to PT perpt request. Consider referral to garnishment specialist if issue persists. - CONSULT TO PHYSICAL THERAPY - XR SACRUM/COCCYX 3V AP/LAT - DICLOFENAC 1 % TOPICAL GEL 2. Status post fall - ICD9: V15.88, ICD10: Z91.81 See above - CONSULT TO PHYSICAL THERAPY - XR SACRUM/COCCYX 3V AP/LAT - DICLOFENAC 1 % TOPICAL GEL F/u as planned with Eliana Curtis CNP on 06/03 Prescription instructions reviewed with patient as applicable. Potential red flag symptoms discussed with the patient. Reviewed appropriate action plan to take if red flag symptoms occur. Patient agreeable to treatment plan. Lavonne Seay PA-C documented in this encounterS[facility]01-[facility]24 NoteHNO ID: [id number] Author: RIGOBERTO CARDENAS RN Service: Nursing Author Type: Registered Nurse Type: Nursing Progress Note Filed: 04/25/2023 10:22 Note Text: Pt ambulated with steady gait to bathroom. Denied pain or dizziness.[facility]12-13-2023 Miscellaneous Notes* Telephone Encounter - Shelly Reyes LPN - 03/20/2023 2:40 PM EST Tori called into [facility]. Patient updated via [facility]. Shelly Reyes LPN * Telephone Encounter - Lucia Goyal Ma - 03/20/2023 9:08 AM EST Patient calling and states when she had her appointment she had the option of what type of prep to do for the Colonoscopy. Was told there is a pill to take that would cost her $150.00. Patient has found help with the cost of it and would like the Rx sent to [facility] in [place]. * Telephone Encounter - Dolly Shepard - 03/01/2023 9:16 AM EST 04/18/2023 COLON LODI PATIENT DENIED SOONER DATES documented in this encounterS[facility]11-29-2023 History of Present illness Narrative* Branden Martinez, PT - 03/06/2023 9:48 AM EST Episode Visit Count: 6 Therapist That Will Accept/Oversee The Plan Of Care: Branden Martinez PT. Start of Care Date: 01/31/23 Onset Date: 01/16/23 Plan of Care Certification Date: 09/18/22 Next Certification Due Date: 10/23/22 Patient Identified by Name and Date of : Yes REHABILITATION AND SPORTS THERAPY PHYSICAL THERAPY DISCONTINUANCE OF CARE PLAN OF CARE UPDATE: Assessment: Gilma Garcia is discontinued from Physical Therapy services due to goal achievement. and Patient/Client declining further intervention. Patient was seen for 6 visits from Start of Care Date: 01/31/23 to 03/06/2023 and treatment included: Therapeutic exercise and Manual therapy. Goals for Episode of Care: updated on 03/06/23 Goals for Episode of Care: created on 01/31/23 through 04/02/23 [place] in home exercise program. (Met Per Patient.) Patient will decrease pain rating by 2 points to meet minimal clinical important difference for numeric pain rating scale. (Met Per Patient.) Patient will increase active ROM of R Wrist to WNL/equal to L Wrist to allow pt to to improve performance of ADLs/IADLs. (Met) Patient will demonstrate increase in R Wrist/Hand strength to 5/5 during manual muscle testing in order to improve function for basic self-care tasks, home management tasks, leisure / recreation skills, prior functional tasks, and work tasks. 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 (Met) Perform turning doorknobs and washing dishes without pain for return to prior level of function without limitation. (Met Per Patient.) SUBJECTIVE: Patient states she is doing good overall, has not had much pain recently for the past week. Patient reports she can move the wrist/hand without it hurting. Patient notes she was thinking about canceling her remaining appts, due to her feeling better. Discussed with patient about home maintenance and patient feels confident, planned discharged this date. Pain: Pain Pain Level: 0 Pain Location: Wrist - Right Post Treatment Pain Post Treatment Pain Level: 0 Post Treatment Pain Location: Wrist - Right PROMIS Scales Higher is Better 02/25/2023 01/29/2023 12/16/2022 Phys Func - Score 45 (within normal limits) 41 (mild dysfunction) 40 (mild dysfunction) Phys Func - Percentile 31 % 18 % 16 % Self-Eff Symptom - Score 46 (Average) 39 (Low) 42 (Average) Self-Eff Symptom - Percentile 34 % 14 % 21 % T-scores: mean of general population = 50. 5 points is clinically meaningfully difference Percentiles provide an indication of how the patient's score ranks in relation to the general population. Higher percentile rankings indicate better function/quality of life. 50th percentile is the average of the general population and indicates half of respondents had a worse score. OBJECTIVE MEASURES WITH LEVEL OF FUNCTION: UE and Cervical Strength R UE Strength: 5/5 at R Wrist - most likely due to decreased pain over the last week that was limitering her > strength gains. Hand Strength R Balloon Maker Position 1 (lbs): 50 lbs L Balloon Maker Position 1 (lbs): 52 lbs TREATMENT: Therapeutic Exercise: 1: R Wrist Ext Isometric: 1x10, 5 hold. 2: R Wrist Flex Isometric: 1x10, 5 hold. 3: R Wrist UD Isometric: 1x10, 5 hold. 4: R Wrist RD Isometric: 1x10, 5 hold. 5: R Balloon Maker Squeezes: 2x15, 5-sec holds. 6: Standing Elbow Bent to 90deg., R FA Flexbar Supination and Pronation: 1x15 ea. 7: Standing Straight Arm, R Wrist Flexbar RD & UD: 1x15 ea. 8: Straight Arm, R Wrist Flex/Ext on Flexbar: 1x12 ea. 9: *Education on continuing home exercise program, patient declined exercise progression handout for maintenance. Skilled Intervention: Patient was educated in proper exercise technique and purpose for exercises. Skilled judgment was used in selection of appropriate interventions. Correct performance of therapeutic exercises was facilitated with verbal, visual, and tactile cuing. Billing Therapeutic Exercise Treatment Minutes: 30 Skilled Treatment Time Minutes (timed and untimed codes): 30 Total Session Time (minutes): 30 Session Start Time : 0945 Session Stop Time : 1015 Branden Martinez PT documented in this encounterS[facility]11-24-2023 History of Present illness Narrative* Lucia Curtis MD - 03/01/2023 8:25 AM EST HISTORY AND PHYSICAL Gilma Garcia 1970 REFERRING PHYSICIAN: Lavonne Seay PA-C CHIEF COMPLAINT: Consult (Altered bowel habits) HPI: The patient is a 52 year old female referred for endoscopy. Gilma notes irregular bowel habits. She states that she has complaint of tearing (feels like razor blades) with hard bowel movement. She notes this with occasional hard stools, about few times a month She notes fecal urgency - sometimes with fecal incontinence. She feels pressure to have a bowel movement and then it requires evaluation urgently She would note 2-3 bowel movements per day with loose stools, but not watery and no blood. She denies previous colonoscopy. She notes no colon cancer in her family. She notes occasional BRBPR on TP. PAST MEDICAL HISTORY Diagnosis Date Acute cholecystitis Carpal tunnel syndrome, bilateral Cervical radiculopathy Chronic low back pain Chronic right-sided low back pain without sciatica 06/08/2022 Concussion 08/13/2022 GERD (gastroesophageal reflux disease) History of TIA (transient ischemic attack) HTN (hypertension) Hypokalemia Left hip pain 10/25/2022 Left knee pain 10/25/2022 Rib pain on right side 06/08/2022 Right shoulder pain 08/13/2022 SOB (shortness of breath) Vitamin D deficiency PAST SURGICAL HISTORY Procedure Laterality Date LAPAROSCOPY SURG CHOLECYSTECTOMY 05/23/2015 TONSILLECTOMY PRIMARY/SECONDARY <AGE 11 Tonsillectomy TUBAL LIGATION HX 1993 VAGINAL HYSTERECTOMY UTERUS 250 GM/< 2015 Current Outpatient Medications Medication Sig naproxen (NAPROSYN) 500 mg tablet Take 1 tablet by mouth two times a day with meals. sertraline (ZOLOFT) 50 mg tablet Take 1 tablet by mouth once daily. Senna 8.6 mg tab Take 1 tablet by mouth two times a day. losartan (COZAAR) 25 mg tablet Take 1 tablet by mouth once daily. metoprolol succinate ER (TOPROL XL) 100 mg Take 1 tablet by mouth once daily. ergocalciferol 50,000 unit capsule (VITAMIN D2, DRISDOL) Take 1 capsule by mouth two times a week. TO BE TAKEN ORALLY DIRECTED. Take 1 tablet by mouth twice weekly [id number], then decrease to 1 tablet weekly. ibuprofen (MOTRIN) 800 mg tablet Take 1 tablet by mouth every 8 hours as needed for pain. Take withfood. omeprazole (PRILOSEC) 20 mg capsule Take 1 capsule by mouth daily before breakfast. 1/2 hr before meal. hydrocortisone (ANUSOL-HC) 2.5 % rectal cream by RECTAL route two times a day. No current facility-administered medications for this visit. ALLERGIES: Mobic [Meloxicam], Naproxen, Prednisone, Tylenol #3 [Codeine], and Vicodin [Hydrocodone-Acetaminophen] PERSONAL HISTORY: Social History Tobacco Use Smoking status: Never Smokeless tobacco: Never Vaping Use Vaping Use: Never used Substance Use Topics Alcohol use: No Drug use: No FAMILY HISTORY Problem Relation Age of Onset Hypertension Mother Hypertension Father Coronary Artery Disease Mother Coronary Artery Disease Father Cancer Mother Breast Cancer Father Lung The review of systems data was entered by the nurse and reviewed by ma Nursing Notes: Shelly Reyes LPN 03/01/2023 8:14 AM Signed REVIEW OF SYSTEMS: General: The patient denies fatigue, denies weight loss, denies weight gain, denies feeling hot, and denies feelings of cold. Eyes: The patient denies glaucoma, denies eye injury/surgery, does not wear glasses or contacts. Ear/Nose/Throat: The patient NOTES allergies, denies hayfever, denies ear infections, and denies bloody noses. Cardiovascular: The patient denies chest pain, denies heart disease, denies high blood pressure,denies cardiac stent, denies prior heart attack, denies irregular heart beat, denies high cholesterol, denies poor circulation, denies heart failure, other cardiac issues, denies claudication, denies cold feet, denies peripheral arterial stent. Respiratory: The patient denies tuberculosis, denies pneumonia, denies frequent cough, denies pulmonary embolism, denies shortness of breath, and denies coughing up blood. Gastrointestinal: The patient denies difficulty swallowing, denies acid reflux, denies ulcers, denies vomiting, denies jaundice/hepatitis, denies gallbladder problems, denies black or tarry stools, denies hemorrhoids, denies bleeding from rectum, denies diverticulitis, NOTES constipation, NOTES diarrhea, denies loss of stool control, and denies hernias. Kidney/Bladder: The patient denies kidney stones, denies urine infections, and denies bloody urine. Skin: The patient denies a history of skin cancer, denies bleeding/changing moles, and denies a history of skin rash. Neurologic: The patient denies a history of epilepsy/convulsions, denies headaches, denies head/spinal injuries, and NOTES stroke/TIA. Psychiatric: The patient denies psychiatric medications, denies depression, and denies voices, denies substance abuse. Endocrine: The patient denies thyroid disorders, denies diabetes, and denies hormonal problems. Hematologic: The patient denies a history of bruising, denies bleeding, and denies anemia, denies blood clots. Infections: The patient denies a history of measles and mumps, denies rheumatic fever, and denies sexually transmitted diseases. Musculoskeletal: The patient NOTES back pain/injury, NOTES back problems, denies sciatica, denies knee/foot trouble, denies arthritis, or NOTES gout. When was patient's last Mammogram screening? 2021 Last Colonoscopy: NEVER Shelly Reyes LPN PHYSICAL EXAMINATION: General: The patient is 52 year old female, well nourished, well hydrated in no acute distress. Thepatient is oriented to time, place, and person. VITALS: Blood pressure 130/84, pulse 81, temperature 36.1 C (96.9 F), height 160 cm (5' 3), ekmmou80.7 kg (206 lb 9.6 oz), last menstrual period 09/26/2014, SpO2 95 %. Body mass index is 36.6 kg/m . Head: Normal cephalic, atraumatic Eyes: pupils are equally round, sclera are clear/anicteric Neck is supple with no tracheal deviation Cardiac: regular heart sounds Respiratory: Normal respiratory excursion and pattern. Abdominal exam: benign Extremities: no clubbing, cyanosis or edema. Neuro: non focal Psych: normal mood Assessment IMPRESSION: altered bowel habits - screening for colon cancer PLAN: I have discussed the above with the patient. I have offered colonoscopy , possible biopsies I have explained the procedure to the patient. I have counseled the patient as to the risks of the procedure, including but not limited to: infection, bleeding, injury to any intrabdominal organs such as liver/spleen, perforation of the GI tract,inability to complete the procedure, complications of anesthesia, etc. - the patient understands. I have explained to the patient the difference between IV conscious sedation and MAC anesthesia - and I have offered either, according to the patient's wishes. I have explained that with IV conscioussedation there is no anesthesia provider available and therefore there is a limitation of the amount of IV medications that can be given and that the patient may wake up in the middle of the procedure and/or experience pain/discomfort during the procedure. Further discussion was done and the patient was given the opportunity to ask questions and all questions were answered. The patient chooses MAC anesthesia. She prefers the Miralax/gatorade colon cleansing preparation, she understands that this requires two days of clear liquid diet. The patient wishes to proceed. I have answered all questions to the patient s satisfaction and the patient has no further questions. My clinic staff has educated the patient as to the colon cleansing regimen and I have prescribed Golytely for the colon cleansing solution. The patient will be scheduled for the procedure at [facility]. Diagnoses: (R19.4) Altered bowel habits I have confirmed and edited as necessary, the PFSH and ROS obtained by others. Consultation requested by Lavonne Seay for an opinion regarding patient's altered bowel habits. Myfinal recommendations will be communicated back to the requesting physician by way of shared Medical record or letter to requesting physician via US mail. I spent a total of 31 minutes on the date of the service which included preparing to see the patient with review of any pertinent laboratory studies/radiological imaging/medical records, [id number] care, obtaining oral medical history from the patient in this encounter, counseling and educating the patient/family/caregiver, and ordering and/or scheduling of medications/tests/procedures,and completing appropriate medical documentation. Lucia uCrtis MD documented in this encounterS[facility]11[facility] Instructions* Patient Instructions* Lucia Curtis MD - 03/01/2023 8:24 AM EST Images from the original note were not included. Bowel Preparation Instructions for: Miralax-Gatorade Preparations IF YOU DO NOT FOLLOW THESE DIRECTIONS, YOUR COLONOSCOPY WILL BE CANCELLED. Abdullahi Instructions: Your bowel must be empty so that your doctor can clearly view your colon. Follow all of the instructions in this handout EXACTLY as they are written. Do NOT eat any solid food the ENTIRE day before your colonoscopy. Buy your bowel preparation at least 5 days before your colonoscopy. Four (4) Dulcolax laxative tablets containing 5mg of bisacodyl each (NOT Dulcolax stool softener) One (1) 8.3oz. bottle Miralax (238 grams) or generic equivalent 2 x 32oz. Bottles of Gatorade (NOT RED) Diabetic Patients: Use G2 (Gatorade 2) TRANSPORTATION on the Day of Your Exam A responsible adult MUST be present with you at Check In prior to your colonoscopy and REMAIN in the endoscopy area until you are discharged. You are NOT ALLOWED to drive, take a taxi or bus, or leave the Endoscopy Center ALONE. If you do not have a responsible local truck driver (family member or friend) withyou to take you home, your exam cannot be done with sedation and will be cancelled. Please bring a list of all of your current medications, including any Fuqu-roc-Yhntlbh medications with you. Medications If you take insulin, diabetic medications or blood thinners such as Coumadin (warfarin), Plavix (clopidogrel), Ticlid (ticlopidine hydrochloride), Agrylin (anagrelide), Xarelto (Rivaroxaban), Pradaxa(Dabigatran), Eliquis (Apixaban), and Effient (Prasugrel). You MUST call the doctors who orders those medicines for instructions on altering the dosage before your colonoscopy. All other medications should be taken the day of the exam with a sip of water including ASPIRIN. Five (5) Days Before Your Colonoscopy Do NOT take medicines that stop diarrhea - such as Imodium, Kaopectate, or Pepto Bismol. Do NOT take fiber supplements - such as Metamucil, Citrucel, or Perdiem. Do NOT take products that contain iron - such as multi-vitamins (the label lists what is in the products). Three (3) Days Before Your Colonoscopy Do NOT eat high-fiber foods - such as popcorn, beans, seeds (flax, sunflower, quinoa), multigrain bread, nuts, salad/vegetables, or fresh and dried fruit. 1 Bowel Preparation Instructions for: Miralax-Gatorade Preparations One (1) Day Before Your Colonoscopy Only drink clear liquids the ENTIRE DAY before your colonoscopy. Do NOT eat any solid foods. Drink at least 8 ounces of clear liquids every hour after waking up. The clear liquids you can drink include: Clear Liquid (NO RED LIQUIDS) DO NOT DRINK Gatorade, Pedialyte or Powerade Clear broth or bouillon Coffee or tea (no milk or non-dairy creamer) Carbonated and non-carbonated soft drinks Jasbir-Aid or other fruit flavored drinks Strained fruit juices (no pulp) Jell-O, popsicles, hard candy Water Alcohol Milk or non-dairy creamers Noodles or vegetables in soup Juice with pulp Liquid you cannot see through Do not use tobacco/vaping products Mix 1/2 of Miralax bottle (119 grams) in each 32 ounces of Gatorade bottle until dissolved. Keep cool in the refrigerator. DO NOT ADD ICE. The bowel preparation solution will be consumed in two parts. Part 1 5:00 PM - Evening before your colonoscopy Take 4 Dulcolax tablets. 6 PM - Evening before your colonoscopy Drink 32 oz. of the mixed solution. Drink an 8 oz. glass of bowel preparation every 15 minutes for a total of 4 glasses. Fifteen (15) minutes later, drink an 8 oz. glass of of clear liquids every 15 minutes for a total of 2 glasses. You may continue to drink clear liquids till midnight. Part 2 On the day of your colonoscopy you may drink clear liquids up to (three) 3 hours prior to procedure. 4 1/2 hours before your colonoscopy Take another 32 oz. bottle of mixed solution. Drink an 8 oz. glass of bowel prep every 15 minutes for a total of 4 glasses. Fifteen (15) minutes later, drink an 8 oz. glass of clear liquids every 15 minutes for a total of 2glasses. You may continue to drink clear liquids up to (three) 3 hours before your exam. 2 03/2019 documented in this encounterS[facility] Nurse Note* Shelly Reyes LPN - 03/01/2023 8:11 AM EST REVIEW OF SYSTEMS: General: The patient denies fatigue, denies weight loss, denies weight gain, denies feeling hot, and denies feelings of cold. Eyes: The patient denies glaucoma, denies eye injury/surgery, does not wear glasses or contacts. Ear/Nose/Throat: The patient NOTES allergies, denies hayfever, denies ear infections, and denies bloody noses. Cardiovascular: The patient denies chest pain, denies heart disease, denies high blood pressure,denies cardiac stent, denies prior heart attack, denies irregular heart beat, denies high cholesterol, denies poor circulation, denies heart failure, other cardiac issues, denies claudication, denies cold feet, denies peripheral arterial stent. Respiratory: The patient denies tuberculosis, denies pneumonia, denies frequent cough, denies pulmonary embolism, denies shortness of breath, and denies coughing up blood. Gastrointestinal: The patient denies difficulty swallowing, denies acid reflux, denies ulcers, denies vomiting, denies jaundice/hepatitis, denies gallbladder problems, denies black or tarry stools, denies hemorrhoids, denies bleeding from rectum, denies diverticulitis, NOTES constipation, NOTES diarrhea, denies loss of stool control, and denies hernias. Kidney/Bladder: The patient denies kidney stones, denies urine infections, and denies bloody urine. Skin: The patient denies a history of skin cancer, denies bleeding/changing moles, and denies a history of skin rash. Neurologic: The patient denies a history of epilepsy/convulsions, denies headaches, denies head/spinal injuries, and NOTES stroke/TIA. Psychiatric: The patient denies psychiatric medications, denies depression, and denies voices, denies substance abuse. Endocrine: The patient denies thyroid disorders, denies diabetes, and denies hormonal problems. Hematologic: The patient denies a history of bruising, denies bleeding, and denies anemia, denies blood clots. Infections: The patient denies a history of measles and mumps, denies rheumatic fever, and denies sexually transmitted diseases. Musculoskeletal: The patient NOTES back pain/injury, NOTES back problems, denies sciatica, denies knee/foot trouble, denies arthritis, or NOTES gout. When was patient's last Mammogram screening? 2021 Last Colonoscopy: NEVER Shelly Reyes LPN documented in this encounterS[facility]11[facility] History of Present illness Narrative* Branden Martinez, PT - 02/26/2023 9:02 AM EST Episode Visit Count: 5 Therapist That Will Accept/Oversee The Plan Of Care: Branden Martinez, PT. Start of Care Date: 01/31/23 Onset Date: 01/16/23 Plan of Care Certification Date: 09/18/22 Next Certification Due Date: 10/23/22 Patient Identified by Name and Date of : Yes REHABILITATION AND SPORTS THERAPY PHYSICAL THERAPY PROGRESS REPORT PLAN OF CARE UPDATE: Assessment: Gilma Garcia demonstrates minimal improvement in working, sleeping, strength, and R Wrist active motion. She has progressed toward goals. Patient continues to present with impairments in ADL's,independence in exercise, overall function, range of motion, strength, symptom management, and tissue tenderness that interfere with cleaning, grooming (Doing the dishes and vacumming, brushing hair,walking the dog and holding leash with R Hand.) .Current prognosis is Good due to: current objective clinical presentation, acuteness of condition, Prognosis may be limited due to (Limited Complianceto HEP; Limited understanding/replication of home exercises session to session.) .She will benefit from continued skilled therapy services to meet the updated goals for this plan of care as noted below. Goals for Episode of Care: updated on 02/26/23. Goals for Episode of Care: created on 01/31/23 through 04/02/23 [place] in home exercise program. (Partially Met) Patient will decrease pain rating by 2 points to meet minimal clinical important difference for numeric pain rating scale. (Not Met) Patient will increase active ROM of R Wrist to WNL/equal to L Wrist to allow pt to to improve performance of ADLs/IADLs. (Progressing Towards) Patient will demonstrate increase in R Wrist/Hand strength to 5/5 during manual muscle testing in order to improve function for basic self-care tasks, home management tasks, leisure / recreation skills, prior functional tasks, and work tasks. 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 (Progressing Towards) Perform turning doorknobs and washing dishes without pain for return to prior level of function without limitation. (Progressing Towards) Planned Interventions, Frequency, and Duration: 1x/week, 4 weeks Total Number of Visits Planned: 4 Patient to be seen for Therapeutic exercise (29041), Neuromuscular re-education (50821), Manual therapy (17684), Therapeutic activities (54529), Self-senior living management (63991), Patient/Family/Caregiver Education PLAN FOR NEXT VISIT: Progression in ther-ex (add resistance band to concentric wrist movements; addeccentrics, flexbar twists.). Review and assess pt. completion of isometrics for HEP. Add to HEP asable. SUBJECTIVE: Patient reports spasm in the R Wrist upon waking up; didn't wear her brace last night when sleeping, states it is possible she slept on it wrong. Spasm just let go a couple minutes ago. Pt. reports minimal improvement overall, states she is unable to hold dog leash and walk her dog, doing dishes and vacumming are difficult with the R Hand. Functional Limitations: cleaning, grooming (Doing the dishes and vacumming, brushing hair, walking the dog and holding leash with R Hand.) Pain: Pain Pain Level: 6 Pain Location: Wrist - Right Description: Spasm Post Treatment Pain Post Treatment Pain Level: Better Post Treatment Pain Location: Wrist - Right PROMIS Scales Higher is Better 02/25/2023 01/29/2023 12/16/2022 Phys Func - Score 45 (within normal limits) 41 (mild dysfunction) 40 (mild dysfunction) Phys Func - Percentile 31 % 18 % 16 % Self-Eff Symptom - Score 46 (Average) 39 (Low) 42 (Average) Self-Eff Symptom - Percentile 34 % 14 % 21 % T-scores: mean of general population = 50. 5 points is clinically meaningfully difference Percentiles provide an indication of how the patient's score ranks in relation to the general population. Higher percentile rankings indicate better function/quality of life. 50th percentile is the average of the general population and indicates half of respondents had a worse score. OBJECTIVE MEASURES WITH LEVEL OF FUNCTION: UE AROM R UE AROM: Wrist Extension limited d/t pain. UE and Cervical Strength R Wrist Extension: 4+/5 R Wrist Flexion: 4+/5 R Wrist Radial Deviation: 4+/5 R Wrist Ulnar Deviation: 4+/5 R Thumb Extension (C8): 4+/5 Hand Strength R Balloon Maker Position 1 (lbs): 40 lbs L Balloon Maker Position 1 (lbs): 50 lbs TREATMENT: Therapeutic Exercise: 1: R Wrist Ext Isometric: 1x12, 5 hold. 2: R Wrist Flex Isometric: 1x12, 5 hold. 3: R Wrist UD Isometric: 1x12, 5 hold. 4: R Wrist RD Isometric: 1x12, 5 hold. 5: R Wrist Circles: 2x15 Cw/Ccw. 6: R Balloon Maker Squeezes: 1x15, 5-sec holds. 7: Standing Straight Arm, R Wrist Flexbar RD & UD: 1x15 ea. 8: Standing Elbow Bent to 90deg., R FA Flexbar Supination and Pronation: 1x15 ea. 9: R Wrist DF Mobility: 2x10. 10: *Progress Check & Objective Measures taken*. 11: *Discussion of importance of HEP completion; advised patient that it is important that she is able to demonstrate/replicate exercises performed at home in PT sessions. Reviewed compliance of HEP and importance for added progressions while in therapy sessions. Skilled Intervention: Patient was educated in proper exercise technique and purpose for exercises. Reviewed and educated patient on additions/changes for home exercise program as above (*). Skilled judgment was used in selection of appropriate interventions. Provided written instruction for home exercise program to facilitate proper performance and compliance. Correct performance of therapeutic exercises was facilitated with verbal, visual, and tactile cuing. Billing Therapeutic Exercise Treatment Minutes: 40 Skilled Treatment Time Minutes (timed and untimed codes): 40 Total Session Time (minutes): 40 Session Start Time : 0900 Session Stop Time : 0940 Branden Martinez PT documented in this encounterShelby [facility]11-14-[facility]23 History of Present illness Narrative* Branden Martinez, PT - 02/19/2023 8:50 AM EST Episode Visit Count: 4 Therapist That Will Accept/Oversee The Plan Of Care: Branden Martinez PT. Start of Care Date: 01/31/23 Onset Date: 01/16/23 Plan of Care Certification Date: 09/18/22 Next Certification Due Date: 10/23/22 Patient Identified by Name and Date of : Yes REHABILITATION AND SPORTS THERAPY PHYSICAL THERAPY TREATMENT NOTE ASSESSMENT: Gilma Garcia tolerated the session with fatigue and decreased symptoms. She demonstrated difficulty with technique with isometrics. The patient will continue to benefit from ongoingskilled physical therapy to progress toward set goals. PLAN FOR NEXT VISIT: PN SUBJECTIVE: Pt reports that her elbow is a little sore today and throughout forearm. Pain: Pain Pain Level: 9 Pain Location: Wrist - Right Description: Aching, Sore Post Treatment Pain Post Treatment Pain Level: Better Post Treatment Pain Location: Wrist - Right OBJECTIVE MEASURES WITH LEVEL OF FUNCTION: Swelling noted at wrist today. TREATMENT: Therapeutic Exercise: 1: R Wrist Flexor Strecth: 3x30 2: R Wrist Extensor Stretch: 3x30 3: R Wrist Ext Isometric: 1x12, 5 hold. 4: R Wrist Flex Isometric: 1x12, 5 hold. 5: R Wrist UD Isometric: 1x12, 5 hold. 6: R Wrist RD Isometric: 1x12, 5 hold. 7: R Wrist Circles: 2x10 Cw/Ccw. Skilled Intervention: Patient was educated in proper exercise technique and purpose for exercises. Skilled judgment was used in selection of appropriate interventions. Correct performance of therapeutic exercises was facilitated with verbal and visual cuing. Manual Therapy: 1: IaSTM to R Wrist Extensors: Push to tolerance. Skilled Intervention: Manual skills to improve joint mobility, ROM, and decrease pain. Utilized anatomy knowledge of the therapist, and assessment of patient's response to intervention. Billing Therapeutic Exercise Treatment Minutes: 34 Manual TherapyTreatment Minutes: 8 Skilled Treatment Time Minutes (timed and untimed codes): 42 Total Session Time (minutes): 42 Session Start Time : 0845 Session Stop Time : 926 Margie Griffith, INSIDE STEWARD/STEWARDESS Branden Martinez, PT, DPT. documented in this encounterShelby [facility]11-07-2023 History of Present illness Narrative* Branden Martinez, PT - 02/12/2023 8:48 AM EST Episode Visit Count: 3 Therapist That Will Accept/Oversee The Plan Of Care: Branden Martinez PT. Start of Care Date: 01/31/23 Onset Date: 01/16/23 Plan of Care Certification Date: 09/18/22 Next Certification Due Date: 10/23/22 Patient Identified by Name and Date of : Yes REHABILITATION AND SPORTS THERAPY PHYSICAL THERAPY TREATMENT NOTE ASSESSMENT: Gilma Garcia tolerated the session with decreased symptoms and expected muscle soreness. She demonstrated improvements in movement with wrist circles. The patient will continue to benefit from ongoing skilled physical therapy to progress toward set goals. PLAN FOR NEXT VISIT: Progress ther-ex as tolerable; add ball squeezes. SUBJECTIVE: Pt reports that she just got over having the flu. Pt reports that her elbow and wrist are doing okay today. Pt reports completing exercise 2x per day. Pain: Pain Pain Level: 6 Pain Location: Wrist - Right Description: Aching Frequency: Continuous, With movement Post Treatment Pain Post Treatment Pain Location: Wrist - Right OBJECTIVE MEASURES WITH LEVEL OF FUNCTION: TTP R wrist extensors. TREATMENT: Therapeutic Exercise: 1: R Wrist Flexor Strecth: 3x30 2: R Wrist Extensor Stretch: 3x30 3: R Wrist Ext Isometric: 1x12, 5 hold. 4: R Wrist Flex Isometric: 1x12, 5 hold. 5: R Wrist UD Isometric: 1x12, 5 hold. 6: R Wrist RD Isometric: 1x12, 5 hold. 7: R Wrist Circles: 2x10 Cw/Ccw. Skilled Intervention: Patient was educated in proper exercise technique and purpose for exercises. Skilled judgment was used in selection of appropriate interventions. Correct performance of therapeutic exercises was facilitated with verbal and visual cuing. Manual Therapy: 1: IaSTM to R Wrist Extensors: Push to tolerance. Skilled Intervention: Manual skills to improve joint mobility, ROM, and decrease pain. Utilized anatomy knowledge of the therapist, and assessment of patient's response to intervention. [place]ialing Therapeutic Exercise Treatment Minutes: 30 Manual TherapyTreatment Minutes: 8 Skilled Treatment Time Minutes (timed and untimed codes): 38 Total Session Time (minutes): 38 Session Start Time : 844 Session Stop Time : 922 Margie BiswasBINA salter, PT, DPT. documented in this encounterShelby [facility]10-31-2023 History of Present illness Narrative* Branden Martinez, PT - 02/05/2023 11:20 AM EDT Episode Visit Count: 2 Therapist That Will Accept/Oversee The Plan Of Care: Branden Martinez PT. Start of Care Date: 01/31/23 Onset Date: 01/16/23 Plan of Care Certification Date: 09/18/22 Next Certification Due Date: 10/23/22 Patient Identified by Name and Date of : Yes REHABILITATION AND SPORTS THERAPY PHYSICAL THERAPY TREATMENT NOTE ASSESSMENT: Gilma Garcia tolerated the session with no issues. She demonstrated improvements in symptoms and increased tolerance to Wrist AROM following session. The patient will continue to benefit from ongoing skilled physical therapy to progress toward set goals. PLAN FOR NEXT VISIT: Progress ther-ex as tolerable; add ball squeezes. SUBJECTIVE: Patient reports increased achiness in the distal dorsal wrist; reports compliance with HEP, states nothing has changed over the last week. Pain: Pain Pain Level: 9 Pain Location: Wrist - Right Description: Aching Frequency: Continuous, With movement Post Treatment Pain Post Treatment Pain Level: Better Post Treatment Pain Location: Wrist - Right OBJECTIVE MEASURES WITH LEVEL OF FUNCTION: Increased difficulty/pain with radial deviation isometric this date compared to other iso's. TREATMENT: Therapeutic Exercise: 1: R Wrist Ext Isometric: 1x12, 5 hold. 2: R Wrist Flex Isometric: 1x12, 5 hold. 3: R Wrist RD Isometric: 1x12, 5 hold. 4: R Wrist UD Isometric: 1x12, 5 hold. 5: R Wrist Flexor Strecth: 3x30 6: R Wrist Extensor Stretch: 3x30 7: R Wrist Circles: 2x10 Cw/Ccw. 8: R Wrist DF Mobility: 2x10. Skilled Intervention: Patient was educated in proper exercise technique and purpose for exercises. Reviewed and educated patient on additions/changes for home exercise program as above (*). Skilled judgment was used in selection of appropriate interventions. Provided written instruction for home exercise program to facilitate proper performance and compliance. Correct performance of therapeutic exercises was facilitated with verbal, visual, and tactile cuing. Manual Therapy: 1: PROM in Wrist Flex/Ext/RD/UD: 1x15 ea. 2: IaSTM to R Wrist Extensors: Push to tolerance. Skilled Intervention: Manual skills to improve joint mobility, ROM, and decrease pain. Utilized anatomy knowledge of the therapist, and assessment of patient's response to intervention. Billing Therapeutic Exercise Treatment Minutes: 24 Manual TherapyTreatment Minutes: 8 Skilled Treatment Time Minutes (timed and untimed codes): 32 Total Session Time (minutes): 32 Session Start Time : 1119 Session Stop Time : 1151 Branden Martinez PT documented in this encounterShelby [facility]10-31-2023 Miscellaneous Notes* Telephone Encounter - Sofi Antony RN - 02/05/2023 8:12 AM EDT Called pt and transferred her to the schedulers to set up her consult appt with general surgery. * Telephone Encounter - Lavonne Seay PA-C - 02/04/2023 4:48 PM EDT Referral placed per request. Can inform patient that she can go ahead and schedule general surgery consult. Lavonne Seay PA-C * Telephone Encounter - Sfoi Antony RN - 02/04/2023 9:01 AM EDT Pt calling as she states she thinks she should go ahead and have a colonoscopy done. Pt states she alternates between diarrhea and constipation and states when she goes, it feels like razor blades when it comes out. States BM's are very painful for her. Pt also states she will not be able to drink the gallon jug. Went over with patient that she will need to have a consult first and then after the consult, they will schedule her colonoscopy. Also sent patient instructions for Miralax/Dulcolax for her to review. Pt verbalizes understanding. Please contact patient when referral has been put inso we can get her scheduled for the consult. Consult order pended. [facility] Discharge instructions Patient Education 02/02/2023 17:09:33 Hypertension, Established Established High Blood Pressure High blood pressure (hypertension) is a chronic disease. Often, healthcare providers don t know what causes it. But it can be caused by certain health conditions and medicines. If you have high blood pressure, you may not have any symptoms. If you do have symptoms, they may include headache, dizziness, changes in your vision, chest pain, and shortness of breath. But even without symptoms, high blood pressure that s not treated raises your risk for heart attack, heart failure, and stroke. High blood pressure is a serious health risk and shouldn t be ignored. Blood pressure measurements are given as 2 numbers. Systolic blood pressure is the upper number. This is the pressure when the heart contracts. Diastolic blood pressure is the lower number. This is the pressure when the heart relaxes between beats. You will see your blood pressure readings written together. For example, a person with a systolic pressure of 118 and a diastolic pressure of 78 will have 118/78 written in the medical record. Blood pressure is categorized as normal, elevated, or stage 1 or stage 2 high blood pressure: Normal blood pressure is systolic of less than 120 and diastolic of less than 80 (120/80) Elevated blood pressure is systolic of 120 to 129 and diastolic less than 80 Stage 1 high blood pressure is systolic is 130 to 139 or diastolic between 80 to 89 Stage 2 high blood pressure is when systolic is 140 or higher or the diastolic is 90 or higher Home care If you have high blood pressure, follow these home care guidelines to help lower your blood pressure. If you are taking medicines for high blood pressure, these methods may reduce or end your need for medicines in the future. Start a weight-loss program if you are overweight. Cut back on how much salt you get in your diet. Here s how to do this: oDon t eat foods that have a lot of salt. These include olives, pickles, smoked meats, and salted potato chips. oDon t add salt to your food at the table. oUse only small amounts of salt when cooking. Start an exercise program. Talk with your healthcare provider about the type of exercise program that would be best for you. It doesn't have to be hard. Even brisk walking for 20 minutes 3 times a week is a good form of exercise. Don t take medicines that stimulate the heart. This includes many ieqb-cgi-vuewavs cold and sinus decongestant pills and sprays, as well as diet pills. Check the warnings about high blood pressure onthe label. Before buying any bjyl-qom-bcqiqew medicines or supplements, always ask the pharmacist about the product's potential interaction with your high blood pressure and your high blood pressure medicines. Stimulants such as amphetamine or cocaine could be deadly for someone with high blood pressure. Never take these. Limit how much caffeine you get in your diet. Switch to caffeine-free products. Stop smoking. If you are a long-time smoker, this can be hard. Talk to your healthcare provider about medicines and nicotine replacement options to help you. Also, enroll in a stop-smoking program tomake it more likely that you will quit for good. Learn how to handle stress. This is an important part of any program to lower blood pressure. Learnabout relaxation methods like meditation, yoga, or biofeedback. If your provider prescribed medicines, take them exactly as directed. Missing doses may cause your blood pressure get out of control. If you miss a dose or doses, check with your healthcare provider or pharmacist about what to do. Consider buying an automatic blood pressure machine to check your blood pressure at home. Ask your provider for a recommendation. You can get one of these at most pharmacies. The [employer] recommends the following guidelines for home blood pressure monitoring: Don't smoke or drink coffee for 30 minutes before taking your blood pressure. Go to the bathroom before the test. Relax for 5 minutes before taking the measurement. Sit with your back supported (don't sit on a couch or soft chair); keep your feet on the floor uncrossed. Place your arm on a solid flat surface (like a table) with the upper part of the arm at heartlevel. Place the middle of the cuff directly above the bend of the elbow. Check the monitor's instruction manual for an illustration. Take multiple readings. When you measure, take 2 to 3 readings one minute apart and record all of the results. Take your blood pressure at the same time every day, or as your healthcare provider recommends. Record the date, time, and blood pressure reading. Take the record with you to your next medical appointment. If your blood pressure monitor has a built-in memory, simply take the monitor with you to your next appointment. Call your provider if you have several high readings. Don't be frightened by a single high blood pressure reading, but if you get several high readings, check in with your healthcare provider. Note: When blood pressure reaches a systolic (top number) of 180 or higher OR diastolic (bottom number) of 110 or higher, seek emergency medical treatment. Follow-up care You will need to see your healthcare provider regularly. This is to check your blood pressure and to make changes to your medicines. Make a follow-up appointment as directed. Bring the record of yourhome blood pressure readings to the appointment. When to seek medical advice Call your healthcare provider right away if any of these occur: Blood pressure reaches a systolic (upper number) of 180 or higher OR a diastolic (bottom number) of110 or higher Chest pain or shortness of breath Severe headache Throbbing or rushing sound in the ears Nosebleed Sudden severe pain in your belly (abdomen) Extreme drowsiness, confusion, or fainting Dizziness or spinning sensation (vertigo) Weakness of an arm or leg or one side of the face You have problems speaking or seeing 0013-5321 [employer]. [address] [place] [address]. All rights reserved. This information is not intended as a substitute for professional medical care. Always follow [facility] professional's instructions. 02/02/2023 17:09:29 Hematuria Blood in the Urine Blood in the urine (hematuria) has many possible causes. If it occurs after an injury (such as a car accident or fall), it is most often a sign of bruising to the kidney or bladder. Common causes of blood in the urine include urinary tract infections, kidney stones, inflammation, tumors, or certainother diseases of the kidney or bladder. Menstruation can cause blood to appear in the urine sample, although it is not coming from the urinary tract. If only a trace amount of blood is present, it will show up on the urine test, even though the urine may be yellow and not pink or red. This may occur with any of the above conditions, as well as heavy exercise or high fever. In this case, your doctor may want to repeat the urine test on another day. This will show if the blood is still present. If it is, then other tests can be done to find out t he cause. Home care Follow these home care guidelines: If your urine does not appear bloody (pink, brown or red) then you do not need to restrict your activity in any way. If you can see blood in your urine, rest and avoid heavy exertion until your next exam. Do not use aspirin, blood thinners, or anti-platelet or anti- inflammatory medicines. These include ibuprofen and naproxen. These thin the blood and may increase bleeding. Follow-up care Follow up with your healthcare provider, or as advised. If you were injured and had blood in your urine, you should have a repeat urine test in 1 to 2 days. Contact your doctor for this test. A radiologist will review any X-rays that were taken. You will be told of any new findings that mayaffect your care. When to seek medical advice Call your healthcare provider right away if any of these occur: Bright red blood or blood clots in the urine (if you did not have this before) Weakness, dizziness or fainting New groin, abdominal, or back pain Fever of 100.4 F (38 C) or higher, or as directed by your healthcare provider Repeated vomiting Bleeding from the nose or gums or easy bruising 4542-0306 [employer]. [address] [place] [address]. All rights reserved. This information is not intended as a substitute for professional medical care. Always follow [facility] hospitalcare professional's instructions. 02/02/2023 17:09:27 Abdominal Pain, Unknown Cause, (Female) Unknown Causes of Abdominal Pain (Female) The exact cause of your belly (abdominal) pain is not clear. This does not mean that this is something to worry about. Everyone likes to know the exact cause of the problem. But sometimes with belly pain, there is no clear-cut cause, and this could be a good thing. The good news is that your symptoms can be treated, and you will feel better. Your condition does not seem serious now. But sometimes the signs of a serious problem may take more time to appear. For this reason, it is important for you to watch for any new symptoms, problems, or worsening of your condition. Over the next few days, the abdominal pain may come and go. Or it may be constant. Other common symptoms can include nausea and vomiting. Sometimes it can be difficult to tell if you feel nauseous. You may just feel bad and not connect that feeling to nausea. Constipation, diarrhea, and a fever maygo along with the pain. The pain may continue even if treated correctly over the following days. Depending on how things go, sometimes the cause can become clear and may need more or different treatment. Additional evaluations, medicines, or tests may also be needed. Home care Your healthcare provider may prescribe medicine for pain, symptoms, or an infection. Follow the healthcare provider's instructions for taking these medicines. General care Rest as much as you can until your next exam. No strenuous activities. Try to find positions that ease discomfort. A small pillow placed on the abdomen may help relieve pain. Something warm on your abdomen (such as a heating pad) may help, but be careful not to burn yourself. Diet Don t force yourself to eat, especially if having cramps, vomiting, or diarrhea. Water is important so you don't get dehydrated. Soup may also be good. Sports drinks may also help,especially if they are not too acidic. Don't drink sugary drinks as this can make things worse. Take liquids in small amounts. Don t guzzle them. Caffeine sometimes makes the pain and cramping worse. Don t take dairy products if you have vomiting or diarrhea. Don't eat large amounts at a time. Wait a few minutes between bites. Eat a diet low in fiber (called a low-residue diet). Foods allowed include refined breads, white rice, fruit and vegetable juices without pulp, tender meats. These foods will pass more easily throughthe intestine. Don t have whole-grain foods, whole fruits and vegetables, meats, seeds and nuts, fried or fatty foods, dairy, alcohol and spicy foods until your symptoms go away. Follow-up care Follow up with your healthcare provider, or as advised, if your pain does not begin to improve in the next 24 hours. Call 911 Call 911 if any of these occur: Trouble breathing Confusion Fainting or loss of consciousness Rapid heart rate Seizure When to seek medical advice Call your healthcare provider right away if any of these occur: Pain gets worse or moves to the right lower abdomen New or worsening vomiting or diarrhea Swelling of the abdomen Unable to pass stool for more than 3 days Fever of 100.4 F (38 C) or higher, or as directed by your healthcare provider. Blood in vomit or bowel movements (dark red or black color) Yellow color of eyes and skin (jaundice) Weakness, dizziness Chest, arm, back, neck, or jaw pain Unexpected vaginal bleeding or missed period Can't keep down liquids or water and you are getting dehydrated [id number] [employer]. [address] [place] [address]. All rights reserved. This information is not intended as a substitute for professional medical care. Always follow yourhealthcare professional's instructions. Follow Up Care 02/02/2023 12:42:40 With:MIL HARRISON Address: [address] [place] [phone] Business (1) When:2-4 days Comments:Schedule appointment as soon as possibleReturn to ED if symptoms worsenFollow-up for colonoscopy assoon as possible With:JULITA COLLINS Address: [address] [place] [address]- Business (1) When:2-4 days Comments:Schedule appointment as soon as possibleReturn to ED if symptoms worsenIncrease diet as described return for intractable vomiting fever worseFollow-up for recheck and repeat urine for blood and bloodpressure [facility] 10-28-2023 Note Discharge Instructions Thank you for allowing [facility] to assist you with your healthcare needs. The following is importantdischarge information regarding your hospital visit. Diagnosis from Today's Visit Abdominal pain Flank pain Hematuria Hypertension What to Do Next Instructions from Your Care Team No qualifying data available. Post Acute Orders No qualifying data available. You Need to Schedule the Following Appointments Follow Up with MIL HARRISON When Within 2-4 days Why: Schedule appointment as soon as possible Return to ED if symptoms worsen Follow-up for colonoscopy as soon as possible Where: [facility] [address] [phone] [phone] Business (1) Follow Up with JULITA COLLINS When Within 2-4 days Why: Schedule appointment as soon as possible Return to ED if symptoms worsen Increase diet as described return for intractable vomiting fever worse Follow-up for recheck and repeat urine for blood and blood pressure Where: [address] [place] [address]- [facility] (1) Allergies Mobic Vicodin morphine Medications Please ask your primary doctor or pharmacist before taking any other medication not listed, including over the counter drugs, herbal medications, vitamins and or supplements as they may interact withyour home medications. What How Much When Instructions Last Dose Unchanged amLODIPine (amLODIPine 2.5 mg oral tablet) 1 tab(s) by mouth Once a day Unchanged lisinopril by mouth Once a day Please take this list to your next doctor s visit. Bring all medications you take, including over the counter medications, herbals and other supplements with you to your doctor s visit. Patients and families are reminded to discard old lists and to update any records with all medication providers or retail pharmacies. Education Materials Established High Blood Pressure High blood pressure (hypertension) is a chronic disease. Often, healthcare providers don t know what causes it. But it can be caused by certain health conditions and medicines. If you have high blood pressure, you may not have any symptoms. If you do have symptoms, they may include headache, dizziness, changes in your vision, chest pain, and shortness of breath. But even without symptoms, high blood pressure that s not treated raises your risk for heart attack, heart failure, and stroke. High blood pressure is a serious health risk and shouldn t be ignored. Blood pressure measurements are given as 2 numbers. Systolic blood pressure is the upper number. This is the pressure when the heart contracts. Diastolic blood pressure is the lower number. This is the pressure when the heart relaxes between beats. You will see your blood pressure readings written together. For example, a person with a systolic pressure of 118 and a diastolic pressure of 78 will have 118/78 written in the medical record. Blood pressure is categorized as normal, elevated, or stage 1 or stage 2 high blood pressure: Normal blood pressure is systolic of less than 120 and diastolic of less than 80 (120/80) Elevated blood pressure is systolic of 120 to 129 and diastolic less than 80 Stage 1 high blood pressure is systolic is 130 to 139 or diastolic between 80 to 89 Stage 2 high blood pressure is when systolic is 140 or higher or the diastolic is 90 or higher Home care If you have high blood pressure, follow these home care guidelines to help lower your blood pressure. If you are taking medicines for high blood pressure, these methods may reduce or end your need for medicines in the future. Start a weight-loss program if you are overweight. Cut back on how much salt you get in your diet. Here s how to do this: oDon t eat foods that have a lot of salt. These include olives, pickles, smoked meats, and salted potato chips. oDon t add salt to your food at the table. oUse only small amounts of salt when cooking. Start an exercise program. Talk with your healthcare provider about the type of exercise program that would be best for you. It doesn't have to be hard. Even brisk walking for 20 minutes 3 times a week is a good form of exercise. Don t take medicines that stimulate the heart. This includes many dbsd-gnh-urzmzko cold and sinus decongestant pills and sprays, as well as diet pills. Check the warnings about high blood pressure onthe label. Before buying any kzmd-qas-naffsxr medicines or supplements, always ask the pharmacist about the product's potential interaction with your high blood pressure and your high blood pressure medicines. Stimulants such as amphetamine or cocaine could be deadly for someone with high blood pressure. Never take these. Limit how much caffeine you get in your diet. Switch to caffeine-free products. Stop smoking. If you are a long-time smoker, this can be hard. Talk to your healthcare provider about medicines and nicotine replacement options to help you. Also, enroll in a stop-smoking program tomake it more likely that you will quit for good. Learn how to handle stress. This is an important part of any program to lower blood pressure. Learnabout relaxation methods like meditation, yoga, or biofeedback. If your provider prescribed medicines, take them exactly as directed. Missing doses may cause your blood pressure get out of control. If you miss a dose or doses, check with your healthcare provider or pharmacist about what to do. Consider buying an automatic blood pressure machine to check your blood pressure at home. Ask your provider for a recommendation. You can get one of these at most pharmacies. The [employer] recommends the following guidelines for home blood pressure monitoring: Don't smoke or drink coffee for 30 minutes before taking your blood pressure. Go to the bathroom before the test. Relax for 5 minutes before taking the measurement. Sit with your back supported (don't sit on a couch or soft chair); keep your feet on the floor uncrossed. Place your arm on a solid flat surface (like a table) with the upper part of the arm at heartlevel. Place the middle of the cuff directly above the bend of the elbow. Check the monitor's instruction manual for an illustration. Take multiple readings. When you measure, take 2 to 3 readings one minute apart and record all of the results. Take your blood pressure at the same time every day, or as your healthcare provider recommends. Record the date, time, and blood pressure reading. Take the record with you to your next medical appointment. If your blood pressure monitor has a built-in memory, simply take the monitor with you to your next appointment. Call your provider if you have several high readings. Don't be frightened by a single high blood pressure reading, but if you get several high readings, check in with your healthcare provider. Note: When blood pressure reaches a systolic (top number) of 180 or higher OR diastolic (bottom number) of 110 or higher, seek emergency medical treatment. Follow-up care You will need to see your healthcare provider regularly. This is to check your blood pressure and to make changes to your medicines. Make a follow-up appointment as directed. Bring the record of yourhome blood pressure readings to the appointment. When to seek medical advice Call your healthcare provider right away if any of these occur: Blood pressure reaches a systolic (upper number) of 180 or higher OR a diastolic (bottom number) of110 or higher Chest pain or shortness of breath Severe headache Throbbing or rushing sound in the ears Nosebleed Sudden severe pain in your belly (abdomen) Extreme drowsiness, confusion, or fainting Dizziness or spinning sensation (vertigo) Weakness of an arm or leg or one side of the face You have problems speaking or seeing [id number] [employer]. [address] [place] [address], [place] [address]. All rights reserved. This information is not intended as a substitute for professional medical care. Always follow yourhealthcare professional's instructions. Blood in the Urine Blood in the urine (hematuria) has many possible causes. If it occurs after an injury (such as a car accident or fall), it is most often a sign of bruising to the kidney or bladder. Common causes of blood in the urine include urinary tract infections, kidney stones, inflammation, tumors, or certainother diseases of the kidney or bladder. Menstruation can cause blood to appear in the urine sample, although it is not coming from the urinary tract. If only a trace amount of blood is present, it will show up on the urine test, even though the urine may be yellow and not pink or red. This may occur with any of the above conditions, as well as heavy exercise or high fever. In this case, your doctor may want to repeat the urine test on another day. This will show if the blood is still present. If it is, then other tests can be done to find out t he cause. Home care Follow these home care guidelines: If your urine does not appear bloody (pink, brown or red) then you do not need to restrict your activity in any way. If you can see blood in your urine, rest and avoid heavy exertion until your next exam. Do not use aspirin, blood thinners, or anti-platelet or anti- inflammatory medicines. These include ibuprofen and naproxen. These thin the blood and may increase bleeding. Follow-up care Follow up with your healthcare provider, or as advised. If you were injured and had blood in your urine, you should have a repeat urine test in 1 to 2 days. Contact your doctor for this test. A radiologist will review any X-rays that were taken. You will be told of any new findings that mayaffect your care. When to seek medical advice Call your healthcare provider right away if any of these occur: Bright red blood or blood clots in the urine (if you did not have this before) Weakness, dizziness or fainting New groin, abdominal, or back pain Fever of 100.4 F (38 C) or higher, or as directed by your healthcare provider Repeated vomiting Bleeding from the nose or gums or easy bruising [id number] [employer]. [address] [place] [address]. All rights reserved. This information is not intended as a substitute for professional medical care. Always follow yourhealthcare professional's instructions. Unknown Causes of Abdominal Pain (Female) The exact cause of your belly (abdominal) pain is not clear. This does not mean that this is something to worry about. Everyone likes to know the exact cause of the problem. But sometimes with belly pain, there is no clear-cut cause, and this could be a good thing. The good news is that your symptoms can be treated, and you will feel better. Your condition does not seem serious now. But sometimes the signs of a serious problem may take more time to appear. For this reason, it is important for you to watch for any new symptoms, problems, or worsening of your condition. Over the next few days, the abdominal pain may come and go. Or it may be constant. Other common symptoms can include nausea and vomiting. Sometimes it can be difficult to tell if you feel nauseous. You may just feel bad and not connect that feeling to nausea. Constipation, diarrhea, and a fever maygo along with the pain. The pain may continue even if treated correctly over the following days. Depending on how things go, sometimes the cause can become clear and may need more or different treatment. Additional evaluations, medicines, or tests may also be needed. Home care Your healthcare provider may prescribe medicine for pain, symptoms, or an infection. Follow the healthcare provider's instructions for taking these medicines. General care Rest as much as you can until your next exam. No strenuous activities. Try to find positions that ease discomfort. A small pillow placed on the abdomen may help relieve pain. Something warm on your abdomen (such as a heating pad) may help, but be careful not to burn yourself. Diet Don t force yourself to eat, especially if having cramps, vomiting, or diarrhea. Water is important so you don't get dehydrated. Soup may also be good. Sports drinks may also help,especially if they are not too acidic. Don't drink sugary drinks as this can make things worse. Take liquids in small amounts. Don t guzzle them. Caffeine sometimes makes the pain and cramping worse. Don t take dairy products if you have vomiting or diarrhea. Don't eat large amounts at a time. Wait a few minutes between bites. Eat a diet low in fiber (called a low-residue diet). Foods allowed include refined breads, white rice, fruit and vegetable juices without pulp, tender meats. These foods will pass more easily throughthe intestine. Don t have whole-grain foods, whole fruits and vegetables, meats, seeds and nuts, fried or fatty foods, dairy, alcohol and spicy foods until your symptoms go away. Follow-up care Follow up with your healthcare provider, or as advised, if your pain does not begin to improve in the next 24 hours. Call 911 Call 911 if any of these occur: Trouble breathing Confusion Fainting or loss of consciousness Rapid heart rate Seizure When to seek medical advice Call your healthcare provider right away if any of these occur: Pain gets worse or moves to the right lower abdomen New or worsening vomiting or diarrhea Swelling of the abdomen Unable to pass stool for more than 3 days Fever of 100.4 F (38 C) or higher, or as directed by your healthcare provider. Blood in vomit or bowel movements (dark red or black color) Yellow color of eyes and skin (jaundice) Weakness, dizziness Chest, arm, back, neck, or jaw pain Unexpected vaginal bleeding or missed period Can't keep down liquids or water and you are getting dehydrated [id number] [employer]. [address] [place] [address]. All rights reserved. This information is not intended as a substitute for professional medical care. Always follow yourhealthcare professional's instructions. Additional Information VACCINATE! IT SAVES LIVES! Members of the community who have not yet received the COVID-19 vaccine and would like to receive it can visit one of [facility] vaccine clinics. There are many vaccine clinic locations within the [facility]. For locations and available times, please visit www.[email or web address].[place].gov/. It is important to note that some COVID mobile vaccine clinics are held outdoors and may be canceled in rainy or stormy conditions. To learn more about pediatric vaccinations (ages 5-11), we invite you to visit the [facility] webpage. [email or web address] learn more about the COVID-19 vaccine, we invite you to visit the CDC website for a list of frequently asked questions. https://www.cdc.gov/coronavirus/2019-ncov/vaccines/faq.html [facility] Access Instructions: Stay connected with your healthcare team and access your personal medical information anytime with the [facility]. If you would like a full copy of your medical records please contact the [facility] Medical Records Department Saturday through Saturday between 8a.m. and 4:30p.m. Please follow the directions below to access the portal: 1.Access the email account you provided upon registration to the [facility].2.Look for an invitation email from [facility].3.Open the email and access the invitation link: Accept Invitation to [facility]4.Fill in the required teixeira to create your account. Sign into [email or web address] with your username and password that you created in the above steps to stay up to date. You can then view a summary of results, a summary of your visits, and the ability to download your summaries to your computer or send the information securely to a physician. Remember that your healthcare information is confidential, so carefully consider who you will allow to register on the [facility] Patient Portal for access to your information. You can also access the [facility] Patient Portal on the [employer]. Simply click on Health Records under [employer] and then click on the [facility] logo. HOW TO SAFELY DISPOSE OF PRESCRIPTION MEDICATIONS Please use one of the following methods to safely dispose of your unused medications. 1.Use a drug disposal kit: the drug disposal pouch allows you to safely discard your old and unuseddrugs. Ask your nurse to give you one when you are discharged.2.Visit a local take-back location: Many local pharmacies and police departments have programs that collect old and unwanted prescriptiondrugs. Call your local pharmacy or go to http://bit.Affectv/6S0Dl4c to find one close to you.3.Make use of household items: Use cat litter or old coffee grounds to dispose medications if other options arenot available. Mix your drugs with these household products, seal them in an airtight container andthrow it into the garbage. Call [facility]: [phone] to be sure your drugs can be disposed of in this way. Some medicines may require a different approach.4.Never flush your medications down the toilet. IF YOU HAVE BEEN PRESCRIBED AN OPIOIDS FOR PAIN If you have been prescribed an opioid (such as hydrocodone, oxycodone or morphine), it is critical to understand the possible side effects and risks of opioid pain medications. Even when taken as directed, opioids can have several side effects including: Tolerance, meaning you might need to take more of a medication for the same pain relief. Nausea, vomiting and/or constipation. Sleepiness, dizziness, dry mouth, confusion, depression or itching. Physical dependence, meaning you have withdrawal symptoms when a medication is stopped ? this can develop within a few days. KNOW YOUR RESPONSIBILITIES It is important to know exactly how much and how often to take the opioid pain medications you are prescribed. Never take opioids in higher amounts or more often than prescribed. Do not combine opioids with alcohol or other drugs that cause drowsiness, such as benzodiazepines, also known as benzos,including diazepam and alprazolam, muscle relaxants or sleep aids. Never sell or share prescriptionopioids. This is illegal. Store opioids in a secure place and out of reach of others (including children, family, friends and visitors). The last page(s) of this document has been signed and retained as a CHART COPY Signatures Patient Education Materials Hypertension, Established Hematuria Abdominal Pain, Unknown Cause, (Female) Medication Leaflets My discharge plan and instructions have been reviewed and explained to me and I,GILMA GARCIAd my current condition and have read and understand these discharge instructions. I have received a written copy of the plan/instructions. If I have questions, I am aware that I should contact my doctor. Patient/Merchandising Internship Signature: Date/Time: Relationship to Patient: Witness Name/Signature: Date/Time: [facility]10-28-2023 Note ORIGINAL EXAMINATION: CT OF THE ABDOMEN AND PELVIS WITH BJKYVNYK72/28/2023 4:16 pm TECHNIQUE: CT of the abdomen and pelvis was performed with the administration of intravenous contrast. Multiplanar reformatted images are provided for review. Automated exposure control, iterative reconstruction, and/or weight based adjustment of the mA/kV was utilized to reduce the radiation dose to as low as reasonably achievable. COMPARISON: None HISTORY: ORDERING SYSTEM PROVIDED HISTORY: Reason for Exam: Right lower quadrant pain FINDINGS: The liver is unremarkable in size, contour, and attenuation. There is no intra or extrahepatic biliary duct dilation. No focal mass identified. The gallbladder is surgically absent. The pancreas, spleen, and adrenal glands are unremarkable. The kidneys enhance symmetrically without evidence of hydronephrosis or mass. The ureters are normal course and caliber. There is no evidence of urolithiasis. The visualized esophagus, stomach, and duodenum are unremarkable. The visualized aorta is nonaneurysmal. The GI tract exhibits no acute abnormalities. Minimal diverticulosis without evidence of diverticulitis. Unremarkable appendix. No pathologically enlarged retroperitoneal, mesenteric, or pelvic lymph nodes are identified. There is no free intraperitoneal air or fluid. The urinary bladder is well-distended without wall thickening or focal mass. The uterus appears to be surgically absent. No acute or suspicious soft tissue or bony findings. Tiny fat containing umbilical hernia. Degenerative spine. Provided images of the lower thorax demonstrate mild bibasilar atelectasis. IMPRESSION: No acute abnormality identified within the abdomen or pelvis. I have personally reviewed the images of this examination and agree with the resident's finding and interpretation. Interpreted by: Bryant Hartman MD Preliminary Report By: Isabella Bill Electronically signed By Bryant Hartman MD Dictated Date: 02/02/2023 4:18:41 PM Prelim Date: 02/02/2023 4:25:20 PM Sign Date: 02/02/2023 4:29:08 PM Ordering Provider: [facility]10-26-2023 History of Present illness Narrative* Branden Martinez, PT - 01/31/2023 9:45 AM EDT Episode Visit Count: 1 Therapist That Will Accept/Oversee The Plan Of Care: Branden Martinez PT. Start of Care Date: 01/31/23 Onset Date: 01/16/23 Plan of Care Certification Date: 09/18/22 Next Certification Due Date: 10/23/22 Patient Identified by Name and Date of : Yes REHABILITATION AND SPORTS THERAPY PHYSICAL THERAPY EVALUATION PLAN OF CARE: Assessment: Gilma Garcia presents with chief complaint of R Wrist Pain from injury that interferes with sleeping, working, gripping (Use of R hand or wrist for any twist, turn or movement.) . She presents with impairments in ADL's, flexibility, independence in exercise, overall function, range of motion, strength, symptom management, and tissue tenderness. PROMIS (Patient-Reported Outcomes Measurement Information System) scores were reviewed and self efficacy domain identified as a rehabilitation concern. Prognosis for therapy is Good due to: current objective clinical presentation, acuteness of condition . She will benefit from skilled therapy services to meet the goals established for this plan of care as noted below. Goals for Episode of Care: created on 01/31/23 through 03/14/23 [place] in home exercise program. Patient will decrease pain rating by 2 points to meet minimal clinical important difference for numeric pain rating scale. Patient will increase active ROM of R Wrist to WNL/equal to L Wrist to allow pt to to improve performance of ADLs/IADLs. Patient will demonstrate increase in R Wrist/Hand strength to 5/5 during manual muscle testing in order to improve function for basic self-care tasks, home management tasks, leisure / recreation skills, prior functional tasks, and work tasks. 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 Perform turning doorknobs and washing dishes without pain for return to prior level of function without limitation. Planned Interventions, Frequency, and Duration: Current Frequency: 1x/week Duration: 4 weeks Total Number of Visits Planned: 4 Planned Treatment Interventions: Therapeutic exercise (12013), Neuromuscular re- education (87239), Manual therapy (32772), Therapeutic activities (99764), Self- senior living management (94900), Patient/Family/Caregiver Education PLAN FOR NEXT VISIT: Assess current sxs and how HEP went; continue progressing ther-ex as tolerable, add wrist stretches for HEP; manual PROM. Patient demonstrates good understanding of plan of care and treatment. The above goals and plan of care were discussed and agreed upon by patient/family. SUBJECTIVE: Patient reports fall on 01/16/23, was taking clothes down to wash and missed a couple steps; fellinto a brick wall and states the R wrist was in extension. Radiographs were negative, [facility] states wrist sprain per patient. Patient states her pain pain is at 8/10, sore and throbbing and pain is located on the dorsal side of the wrist. Hurts with turning doorknobs/keys, washing dishes any movement. Ice doesn't take away pain, heat can. Notes swelling in R Wrist. States her pain has been thesame since initial injury. States she wears the R Wrist brace at night. 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 Recreation / Current Exercise: None Intake Information: Prescription present Previous Treatment: Heat , NSAIDs Pain: Pain Pain Level: 8 Pain Location: Wrist - Right Description: Throbbing, Sore Frequency: Continuous, With movement Post Treatment Pain Post Treatment Pain Level: No Change Post Treatment Pain Location: Wrist - Right Post Treatment Pain Description: Sore PROMIS Scales Higher is Better 01/29/2023 12/16/2022 10/19/2022 Phys Func - Score 41 (mild dysfunction) 40 (mild dysfunction) 48 (within normal limits) Phys Func - Percentile 18 % 16 % 42 % Self-Eff Symptom - Score 39 (Low) 42 (Average) 49 (Average) Self-Eff Symptom - Percentile 14 % 21 % 46 % T-scores: mean of general population = 50. 5 points is clinically meaningfully difference Percentiles provide an indication of how the patient's score ranks in relation to the general population. Higher percentile rankings indicate better function/quality of life. 50th percentile is the average of the general population and indicates half of respondents had a worse score. OBJECTIVE MEASURES WITH LEVEL OF FUNCTION: Elbow Observations Comments: Distal Radial Head, R Extensor & Flexor Musculature. UE AROM R UE AROM: Global Wrist Motion Limited Due to Pain. Pain with Ext > Flexion. UE PROM R UE PROM: Grossly WNL for R Wrist/Hand, R Wrist Flexion with pain on extensor musculature. UE and Cervical Strength Strength Tested: Distal UE L UE Strength: Grossly 5/5 R Forearm Supination: 4/5 R Forearm Pronation: 4/5 R Wrist Extension: 4/5 R Wrist Flexion: 4/5 R Wrist Radial Deviation: 4/5 R Wrist Ulnar Deviation: 4/5 R Thumb Extension (C8): 5/5 R Finger Adduction/Interossei (T1): 5/5 Hand Strength R Balloon Maker Position 1 (lbs): 40 lbs L Balloon Maker Position 1 (lbs): 50 lbs Special Tests - Elbow/Wrist/Hand Elbow/Wrist/Hand Special Tests: Varus Stress Test, Valgus Stress Test Varus Stress Test: Right negative, Left negative Valgus Stress Test: Right negative, Left negative Education: Education Learning/educational needs: Safety, Home exercise program, Plan of Care, Changes in Plan of Care TREATMENT: PT Treatment Interventions: Therapeutic Exercise, Manual Therapy Evaluation Therapeutic Exercise: 1: *R Wrist Ext Isometric: 1x10, 5 hold. 2: *R Wrist Flex Isometric: 1x10, 5 hold. 3: *R Wrist RD Isometric: 1x10, 5 hold. 4: *R Wrist UD Isometric: 1x10, 5 hold. 5: *R Wrist PROM Circumduction: 1x10. 6: *R Finger ABD/Spreadinx10. 7: *Discussed therapy goals, exam findings and importance/purpose of exercises. Skilled Intervention: Patient was educated in proper exercise technique and purpose for exercises. Reviewed and educated patient on additions/changes for home exercise program as above (*). Skilled judgment was used in selection of appropriate interventions. Provided written instruction for home exercise program to facilitate proper performance and compliance. Correct performance of therapeutic exercises was facilitated with verbal, visual, and tactile cuing. Manual Therapy: 1: IaSTM to R Wrist Extensors: Push to tolerance. Skilled Intervention: Manual skills to improve joint mobility, ROM, and decrease pain. Utilized anatomy knowledge of the therapist, and assessment of patient's response to intervention. Billing * Evaluation Low Complexity: 1 Unit Therapeutic Exercise Treatment Minutes: 18 Manual TherapyTreatment Minutes: 8 Skilled Treatment Time Minutes (timed and untimed codes): 39 Total Session Time (minutes): 39 Session Start Time : 45 Session Stop Time : 1024 Branden Martinez PT [facility] History of Present illness Narrative* Lavonne Seay PA-C - 01/23/2023 9:08 AM EDT CC: Patient presents with: ED Follow-up: fell on right wrist- compressed bone, [place] [facility] 01/17/23, same fall hit head went yesterday for concussion HPI Gilma Garcia is a 52 year old female who presents today for ER follow-up x2. Facility: [facility]) Date of visit: 01/17/23, 01/22/23 Reason for visit: Initial visit: R wrist pain, rib pain and L shoulder pain, and head injury status post fall on 01/16/23 (fell and hit her head on a brick wall), second visit for residual dizziness and nausea after fall Hospital course: 01/17/23- Had CXR, CT head, and wrist XR performed -- all negative. Was discharged home with wrist brace, and with zofran for nausea. 01/22/23 - Repeat CT head performed which was negative. Discharged home with Tylenol and Zofran. Diagnosis: Fall, Concussion without LOC, contusion of R shoulder Current symptoms: R wrist which only seems to bother her when she's doing things with it. Headache/post-concussive symptoms seem to have improved. REVIEW OF SYSTEMS See HPI PAST MEDICAL HISTORY Diagnosis Date Acute cholecystitis Chronic low back pain HTN (hypertension) PAST SURGICAL HISTORY Procedure Laterality Date LAPAROSCOPY SURG CHOLECYSTECTOMY 05/23/2015 TONSILLECTOMY PRIMARY/SECONDARY <AGE 11 Tonsillectomy TUBAL LIGATION HX 1993 VAGINAL HYSTERECTOMY UTERUS 250 GM/< 2015 ALLERGIES Mobic [Meloxicam], Naproxen, Prednisone, Tylenol #3 [Codeine], and Vicodin [Hydrocodone-Acetaminophen] MEDICATIONS sertraline (ZOLOFT) 50 mg tablet Take 1 tablet by mouth once daily. hydrocortisone (ANUSOL-HC) 2.5 % rectal cream by RECTAL route two times a day. Senna 8.6 mg tab Take 1 tablet by mouth two times a day. losartan (COZAAR) 25 mg tablet Take 1 tablet by mouth once daily. metoprolol succinate ER (TOPROL XL) 100 mg Take 1 tablet by mouth once daily. ergocalciferol 50,000 unit capsule (VITAMIN D2, DRISDOL) Take 1 capsule by mouth two times a week. TO BE TAKEN ORALLY DIRECTED. Take 1 tablet by mouth twice weekly q7rsvat, then decrease to 1 tablet weekly. ibuprofen (MOTRIN) 800 mg tablet Take 1 tablet by mouth every 8 hours as needed for pain. Take withfood. FAMILY HISTORY Problem Relation Age of Onset Hypertension Mother Hypertension Father Coronary Artery Disease Mother Coronary Artery Disease Father Cancer Mother Breast Cancer Father Lung Social History Tobacco Use Smoking status: Never Smokeless tobacco: Never Vaping Use Vaping Use: Never used Substance Use Topics Alcohol use: No Drug use: No PHYSICAL EXAM BP 128/72 (BP Site: Left Arm, BP Position: Sitting, BP Cuff Size: Large Adult) Pulse 65 Temp 36.7 C (98 F) Resp 12 Ht 160 cm (5' 3) Wt 93 kg (205 lb) LMP 09/26/2014 (Exact Date) SpO2 97% BMI 36.31 kg/m General Appearance: well appearing, in no acute distress, alert Psych: mood and affect broad and appropriate Skin: Skin color, texture, turgor normal for age Lungs: Lungs clear to auscultation. No wheezing, rhonchi, rales. Heart: RRR without murmur, gallop, or rubs. Extremities: No gross deformities, significant edema, skin discoloration, clubbing or cyanosis. Musculoskeletal: Positive findings: joint location: on left wrist pain, swelling, and loss of ROM (diminished ROM with wrist extension secondary to pain) Neurological: Gait normal. No focal neurological deficits. Sensation grossly intact. Hepatitis B Vaccine(1 of 3 - 3-dose series) Never done HIV Screening Never done Colorectal Cancer Screening Never done Mammogram Screening due on 02/06/2023 DTaP,Tdap,Td Vaccine(2 - Td or Tdap) due on 03/19/2023 Shingrix Vaccine(1 of 2) due on 03/19/2023 Influenza Vaccine(1) due on 10/06/2023 Covid-19 Vaccine(3 - 2022- season) due on 01/16/2024 Annual PCP Team Chronic Disease Visit due on 01/24/2024 BP Controlled (<130/80) due on 01/24/2024 Diabetes Screening due on 01/08/2026 Lipid Screening due on 01/09/2028 Depression Assessment Completed Hepatitis C Screening Completed Pap Testing Discontinued HPV Testing Discontinued ASSESSMENT/PLAN: 1. Right wrist pain - ICD9: 719.43, ICD10: M25.531 (primary diagnosis) XR as obtained in ED negative for acute fracture/dislocation/acute bony abnormality. RICE therapy advised. Pain control addressed (prescription strength NSAID sent-see orders). Will proceed with physical therapy if no improvement within the next week or 2. - CONSULT TO PHYSICAL THERAPY 2. Dyspepsia - ICD9: 536.8, ICD10: R10.13 - Begin treatment with Prilosec 20 mg every day, to take empirically with NSAIDs so as to avoid GERD symptoms - OMEPRAZOLE 20 MG CAPSULE,DELAYED RELEASE Prescription instructions reviewed with patient as applicable. Potential red flag symptoms discussed with the patient. Reviewed appropriate action plan to take if red flag symptoms occur. Patient agreeable to treatment plan. Lavonne Seay PA-C [facility] Hospital Discharge instructions Patient Education 01/22/2023 09:11:00 Head Injury (Adult) Head Injury (Adult) You have a head injury. It does not appear serious at this time. But symptoms of a more serious problem, such as a mild brain injury (concussion) or bruising or bleeding in the brain, may appear later. For this reason, you or someone caring for you will need to watch for the symptoms listed below. Once you re home, also be sure to follow any care instructions you re given. Home care Watch for the following symptoms Seek emergency medical care if you have any of these symptoms over the next hours to days: Headache Nausea or vomiting Dizziness Sensitivity to light or noise Unusual sleepiness or grogginess Trouble falling asleep Personality changes Vision changes Memory loss Confusion Trouble walking or clumsiness Loss of consciousness (even for a short time) Inability to be awakened Stiff neck Weakness or numbness in any part of the body Seizures General care If you were prescribed medicines for pain, use them as directed. Note: Don t take other medicines for pain without talking to your provider first. To help reduce swelling and pain, apply a cold source to the injured area for up to 20 minutes at atime. Do this as often as directed. Use a cold pack or bag of ice wrapped in a thin towel. Never apply a cold source directly to the skin. If you have cuts or scrapes as a result of your head injury, care for them as directed. For the next 24 hours (or longer, if instructed): oDon t drink alcohol or use sedatives or other medicines that make you sleepy. oDon t drive or operate machinery. oDon t do anything strenuous, such as heavy lifting or straining. oLimit tasks that require concentration. This includes reading, using a smartphone or computer, watching TV, and playing video games. oDon t return to sports or other activities that could result in another head injury. Follow-up care Follow up with your healthcare provider, or as directed. If imaging tests were done, they will be reviewed by a doctor. You will be told the results and any new findings that may affect your care. When to seek medical advice Call your healthcare provider right away if any of these occur: Pain doesn t get better or worsens New or increased swelling or bruising Fever of 100.4 F (38 C) or higher, or as directed by your provider Increased redness, warmth, drainage, or bleeding from the injured area Fluid drainage or bleeding from the nose or ears Any depression or bony abnormality in the injured area Persistent confusion or lethargy Bruising behind the ears or bruising around the eyes [id number] [employer]. [address] [place] [address]. All rights reserved. This information is not intended as a substitute for professional medical care. Always follow yourhealthcare professional's instructions. Follow Up Care 01/22/2023 08:13:38 With:JULITA COLLINS MD Address: [address] [place] [address]- When:2-4 days [facility] 10-17-2023 Note Discharge Instructions Thank you for allowing [facility] to assist you with your healthcare needs. The following is importantdischarge information regarding your hospital visit. Diagnosis from Today's Visit Closed head injury Fall Headache What to Do Next Instructions from Your Care Team No qualifying data available. Post Acute Orders No qualifying data available. You Need to Schedule the Following Appointments Follow Up with JULITA COLLINS MD When Within 2-4 days Where: [address] [place] [address]- Allergies Mobic Vicodin morphine Medications Please ask your primary doctor or pharmacist before taking any other medication not listed, including over the counter drugs, herbal medications, vitamins and or supplements as they may interact withyour home medications. What How Much When Instructions Last Dose New acetaminophen (Tylenol 325 mg oral tablet) 1 tab(s) by mouth Every 4 hours as needed for for pain Duration: 5 Days Printed Prescription New ondansetron (Zofran 4 mg oral tablet) 1 tab(s) by mouth Every 6 hours as needed for Nausea/Vomiting Duration: 5 Days Printed Prescription Unchanged amLODIPine (amLODIPine 2.5 mg oral tablet) 1 tab(s) by mouth Once a day Unchanged lisinopril by mouth Once a day Please take this list to your next doctor s visit. Bring all medications you take, including over the counter medications, herbals and other supplements with you to your doctor s visit. Patients and families are reminded to discard old lists and to update any records with all medication providers or retail pharmacies. Education Materials Head Injury (Adult) You have a head injury. It does not appear serious at this time. But symptoms of a more serious problem, such as a mild brain injury (concussion) or bruising or bleeding in the brain, may appear later. For this reason, you or someone caring for you will need to watch for the symptoms listed below. Once you re home, also be sure to follow any care instructions you re given. Home care Watch for the following symptoms Seek emergency medical care if you have any of these symptoms over the next hours to days: Headache Nausea or vomiting Dizziness Sensitivity to light or noise Unusual sleepiness or grogginess Trouble falling asleep Personality changes Vision changes Memory loss Confusion Trouble walking or clumsiness Loss of consciousness (even for a short time) Inability to be awakened Stiff neck Weakness or numbness in any part of the body Seizures General care If you were prescribed medicines for pain, use them as directed. Note: Don t take other medicines for pain without talking to your provider first. To help reduce swelling and pain, apply a cold source to the injured area for up to 20 minutes at atime. Do this as often as directed. Use a cold pack or bag of ice wrapped in a thin towel. Never apply a cold source directly to the skin. If you have cuts or scrapes as a result of your head injury, care for them as directed. For the next 24 hours (or longer, if instructed): oDon t drink alcohol or use sedatives or other medicines that make you sleepy. oDon t drive or operate machinery. oDon t do anything strenuous, such as heavy lifting or straining. oLimit tasks that require concentration. This includes reading, using a smartphone or computer, watching TV, and playing video games. oDon t return to sports or other activities that could result in another head injury. Follow-up care Follow up with your healthcare provider, or as directed. If imaging tests were done, they will be reviewed by a doctor. You will be told the results and any new findings that may affect your care. When to seek medical advice Call your healthcare provider right away if any of these occur: Pain doesn t get better or worsens New or increased swelling or bruising Fever of 100.4 F (38 C) or higher, or as directed by your provider Increased redness, warmth, drainage, or bleeding from the injured area Fluid drainage or bleeding from the nose or ears Any depression or bony abnormality in the injured area Persistent confusion or lethargy Bruising behind the ears or bruising around the eyes [id number] [employer]. [address] [place] [address]. All rights reserved. This information is not intended as a substitute for professional medical care. Always follow yourhealthcare professional's instructions. Additional Information VACCINATE! IT SAVES LIVES! Members of the community who have not yet received the COVID-19 vaccine and would like to receive it can visit one of [facility] vaccine clinics. There are many vaccine clinic locations within the [facility]. For locations and available times, please visit www.[email or web address].[place].gov/. It is important to note that some COVID mobile vaccine clinics are held outdoors and may be canceled in rainy or stormy conditions. To learn more about pediatric vaccinations (ages 5-11), we invite you to visit the [facility] webpage. [email or web address]/[email or web address] [email or web address] learn more about the COVID-19 vaccine, we invite you to visit the CDC website for a list of frequently asked questions. https://www.cdc.gov/coronavirus/2019-ncov/vaccines/faq.html [facility] Access Instructions: Stay connected with your healthcare team and access your personal medical information anytime with the [facility]. If you would like a full copy of your medical records please contact the [facility] Medical Records Department Saturday through Saturday between 8a.m. and 4:30p.m. Please follow the directions below to access the portal: 1.Access the email account you provided upon registration to the hospital.2.Look for an invitation email from [facility].3.Open the email and access the invitation link: Accept Invitation to [facility]4.Fill in the required teixeira to create your account. Sign into [email or web address] with your username and password that you created in the above steps to stay up to date. You can then view a summary of results, a summary of your visits, and the ability to download your summaries to your computer or send the information securely to a physician. Remember that your healthcare information is confidential, so carefully consider who you will allow to register on the [facility] Patient Portal for access to your information. You can also access the [facility] Patient Portal on the [employer]. Simply click on Health Records under [facility] and then click on the [facility] logo. HOW TO SAFELY DISPOSE OF PRESCRIPTION MEDICATIONS Please use one of the following methods to safely dispose of your unused medications. 1.Use a drug disposal kit: the drug disposal pouch allows you to safely discard your old and unuseddrugs. Ask your nurse to give you one when you are discharged.2.Visit a local take-back location: Many local pharmacies and police departments have programs that collect old and unwanted prescriptiondrugs. Call your local pharmacy or go to http://foc.us.Affectv/7I0Vb7j to find one close to you.3.Make use of household items: Use cat litter or old coffee grounds to dispose medications if other options arenot available. Mix your drugs with these household products, seal them in an airtight container andthrow it into the garbage. Call [facility]: [phone] to be sure your drugs can be disposed of in this way. Some medicines may require a different approach.4.Never flush your medications down the toilet. IF YOU HAVE BEEN PRESCRIBED AN OPIOIDS FOR PAIN If you have been prescribed an opioid (such as hydrocodone, oxycodone or morphine), it is critical to understand the possible side effects and risks of opioid pain medications. Even when taken as directed, opioids can have several side effects including: Tolerance, meaning you might need to take more of a medication for the same pain relief. Nausea, vomiting and/or constipation. Sleepiness, dizziness, dry mouth, confusion, depression or itching. Physical dependence, meaning you have withdrawal symptoms when a medication is stopped ? this can develop within a few days. KNOW YOUR RESPONSIBILITIES It is important to know exactly how much and how often to take the opioid pain medications you are prescribed. Never take opioids in higher amounts or more often than prescribed. Do not combine opioids with alcohol or other drugs that cause drowsiness, such as benzodiazepines, also known as benzos,including diazepam and alprazolam, muscle relaxants or sleep aids. Never sell or share prescriptionopioids. This is illegal. Store opioids in a secure place and out of reach of others (including children, family, friends and visitors). The last page(s) of this document has been signed and retained as a CHART COPY Signatures Patient Education Materials Head Injury (Adult) Medication Leaflets My discharge plan and instructions have been reviewed and explained to me and IRADHA ANNETTE Cunderstand my current condition and have read and understand these discharge instructions. I have received a written copy of the plan/instructions. If I have questions, I am aware that I should contact my doctor. Patient/[employer]chand[employer] Signature: Date/Time: Relationship to Patient: Witness Name/Signature: Date/Time: [facility]10-17-2023 Note ORIGINAL EXAMINATION: CT OF THE HEAD WITHOUT CONTRAST 01/22/2023 8:49 am TECHNIQUE: CT of the head was performed without the administration of intravenous contrast. Automated exposure control, iterative reconstruction, and/or weight based adjustment of the mA/kV was utilized to reduce the radiation dose to as low as reasonably achievable. COMPARISON: 01/17/2023 HISTORY: ORDERING SYSTEM PROVIDED HISTORY: Reason for Exam: pain/headache FINDINGS: BRAIN/VENTRICLES: There is no acute intracranial hemorrhage, mass effect or midline shift. No abnormal extra-axial fluid collection. There is age-related atrophy and microangiopathic change. The steinbreg-white differentiation is maintained without evidence of an acute infarct. There is no evidence of hydrocephalus. ORBITS: The visualized portion of the orbits demonstrate no acute abnormality. SINUSES: The visualized paranasal sinuses and mastoid air cells demonstrate no acute abnormality. SOFT TISSUES/SKULL: No acute abnormality of the visualized skull or soft tissues. IMPRESSION: No acute intracranial abnormality. Interpreted by: Bryant Oropeza MD Preliminary Report By: Bryant Oropeza MD Electronically signed By Bryant Oropeza MD Dictated Date: 01/22/2023 8:59:22 AM Prelim Date: 01/22/2023 9:00:44 AM Sign Date: 01/22/2023 9:00:44 AM [facility]ing [facility] Discharge instructions Patient Education 01/17/2023 09:17:03 Head Injury (Adult) Head Injury (Adult) You have a head injury. It does not appear serious at this time. But symptoms of a more serious problem, such as a mild brain injury (concussion) or bruising or bleeding in the brain, may appear later. For this reason, you or someone caring for you will need to watch for the symptoms listed below. Once you re home, also be sure to follow any care instructions you re given. Home care Watch for the following symptoms Seek emergency medical care if you have any of these symptoms over the next hours to days: Headache Nausea or vomiting Dizziness Sensitivity to light or noise Unusual sleepiness or grogginess Trouble falling asleep Personality changes Vision changes Memory loss Confusion Trouble walking or clumsiness Loss of consciousness (even for a short time) Inability to be awakened Stiff neck Weakness or numbness in any part of the body Seizures General care If you were prescribed medicines for pain, use them as directed. Note: Don t take other medicines for pain without talking to your provider first. To help reduce swelling and pain, apply a cold source to the injured area for up to 20 minutes at atime. Do this as often as directed. Use a cold pack or bag of ice wrapped in a thin towel. Never apply a cold source directly to the skin. If you have cuts or scrapes as a result of your head injury, care for them as directed. For the next 24 hours (or longer, if instructed): oDon t drink alcohol or use sedatives or other medicines that make you sleepy. oDon t drive or operate machinery. oDon t do anything strenuous, such as heavy lifting or straining. oLimit tasks that require concentration. This includes reading, using a smartphone or computer, watching TV, and playing video games. oDon t return to sports or other activities that could result in another head injury. Follow-up care Follow up with your healthcare provider, or as directed. If imaging tests were done, they will be reviewed by a doctor. You will be told the results and any new findings that may affect your care. When to seek medical advice Call your healthcare provider right away if any of these occur: Pain doesn t get better or worsens New or increased swelling or bruising Fever of 100.4 F (38 C) or higher, or as directed by your provider Increased redness, warmth, drainage, or bleeding from the injured area Fluid drainage or bleeding from the nose or ears Any depression or bony abnormality in the injured area Persistent confusion or lethargy Bruising behind the ears or bruising around the eyes [id number] [employer]. [address] [place] [address]. All rights reserved. This information is not intended as a substitute for professional medical care. Always follow yourhealthcare professional's instructions. Follow Up Care 01/17/2023 08:13:00 With:JULITA COLLINS MD Address: [address] [place] [id number]- When:2-4 days [facility] 10-12-2023 Note ORIGINAL EXAMINATION: THREE XRAY VIEWS OF THE RIGHT WRIST01/17/2023 9:04 am TECHNIQUE: Three views of the right wrist COMPARISON: None HISTORY: ORDERING SYSTEM PROVIDED HISTORY: Reason for Exam: pain FINDINGS: No acute fracture or dislocation is identified. Ulnar positive variance noted. Degenerative changes of the 1st CMC joint noted. Soft tissue along the volar and dorsal wrist and dorsal metacarpal bones present. A 2 mm radiopaque foreign body is located medial to the 5th proximal phalanx. IMPRESSION: No acute fracture or dislocation. Ulnar positive variance which may be positional. Soft tissue swelling. Degenerative changes. Interpreted by: Andrew Kramer MD Preliminary Report By: Andrew Kramer MD Electronically signed By Andrew Kramer MD Dictated Date: 01/17/2023 9:06:48 AM Prelim Date: 01/17/2023 9:09:58 AM Sign Date: 01/17/2023 9:09:58 AM Ordering Provider: [facility]10-12-2023 Note ORIGINAL EXAMINATION: CT HEAD TECHNIQUE: Axial CT images from skull base to vertex without IV contrast. This exam was performed according to our departmental dose optimization program, and includes the following measures where applicable: automated exposure control, adjustment of the mAs and/or kVp according to patient size and/or exam, and an iterative reconstruction algorithm. COMPARISON: None HISTORY: ORDERING SYSTEM PROVIDED HISTORY: Reason for Exam: fall yesterday evening. MATTHEW, dizziness, nausea. pain; trauma patient FINDINGS: Parenchyma: No acute intracranial hemorrhage, midline shift, mass effect or acute ischemic infarct is demonstrated. The steinberg-white matter junctions are preserved. No space occupying intra-axial masses or extra-axial fluid collections are seen. Mild age commensurate parenchymal volume loss most pronounced in the posterior fossa noted. Ventricles: No evidence of hydrocephalus or ventricular effacement. Vessels: No significant atherosclerotic calcifications. Orbits: Unremarkable. Calvarium: Unremarkable. Paranasal sinuses: Clear. Mastoid sinuses: Clear. IMPRESSION: No acute intracranial pathology. Interpreted by: Andrew Kramer MD Preliminary Report By: Andrew Kramer MD Electronically signed By Andrew Kramer MD Dictated Date: 01/17/2023 9:03:48 AM Prelim Date: 01/17/2023 9:06:29 AM Sign Date: 01/17/2023 9:06:29 AM Ordering Provider: [facility]10-12-2023 Note ORIGINAL EXAMINATION: TWO XRAY VIEWS OF THE CHEST TECHNIQUE: Two views COMPARISON: Chest 04/10/2017 HISTORY: ORDERING SYSTEM PROVIDED HISTORY: Reason for Exam: Fall yesterday evening, dizzy, nauseous. Pain; Trauma patient FINDINGS: Support devices: None Cardiomediastinal: The heart is normal in size. Lungs: Hypoventilatory changes with pulmonary vessel crowding. No infiltrates, pulmonary edema, consolidation or a pleural effusion is seen. Pneumothorax: None. Osseous: Interval indeterminate age compression deformity of the approximate L1 vertebral body noted. IMPRESSION: No acute pulmonary disease. Indeterminate age mild compression deformity of the approximate L1 vertebral body. Dedicated lumbar spine x-rays advised. Interpreted by: Andrew Kramer MD Preliminary Report By: Andrew Kramer MD Electronically signed By Andrew Kramer MD Dictated Date: 01/17/2023 9:01:21 AM Prelim Date: 01/17/2023 9:03:44 AM Sign Date: 01/17/2023 9:03:44 AM Ordering Provider: [facility]10-10-2023 Instructions* Patient Instructions* Lavonne Seay PA-C - 01/15/2023 10:14 AM EDT Images from the original note were not included. Hemorrhoids What are hemorrhoids? Hemorrhoids are swollen veins and tissue in the lower rectum and anus. The anus is at the end of the rectum and is the opening through which bowel movements pass from your body. Hemorrhoids are a common problem. Another name for them is piles. Hemorrhoids may be internal (inside the rectum) or external (around the anus). Internal hemorrhoidsare often painless but they sometimes cause a lot of bleeding. The internal veins may stretch and even fall down (prolapse) through the anus to outside the body. The veins may then become irritated and painful. External hemorrhoids can be seen or felt easily around the anal opening. When the swollen veins are scratched or broken by straining, rubbing, or wiping, they sometimes bleed. How do they occur? Veins in the rectum and around the anus tend to swell under pressure. Hemorrhoids can result from too much pressure on these veins. You may put pressure on these veins by: straining to have a bowel movement when you are constipated waiting too long to have a bowel movement sitting for a long time on the toilet, which causes strain on the anal area coughing and sneezing often sitting for a long while. Hemorrhoids may also develop from: diarrhea obesity injury to the anus, for example, from anal intercourse some liver diseases. Flare-ups of hemorrhoids may occur during periods of stress. Some people inherit a tendency to havehemorrhoids. women should try to avoid becoming constipated because they are more likely to have hemorrhoids during . In the last trimester of , the enlarged uterus may press on blood vessels and cause hemorrhoids. Also, the strain of childbirth sometimes causes hemorrhoids after the . What are the symptoms? Symptoms of hemorrhoids include: itching, mild burning, and bleeding around the anus (for example, you might see bright red blood ontoilet paper after wiping) swelling and tenderness around the anus pain with bowel movements painful lumps around the anus ranging in size from a pea to a walnut (in severe cases). How are they diagnosed? Your healthcare provider will examine your rectum and anus. Your provider may use a special light tool called a proctoscope or anoscope to look inside the rectum. How is it treated? The following treatments usually help to relieve most cases of hemorrhoids: High-fiber diet Eat more high-fiber foods, which will help prevent constipation. The best sources of fiber are whole-grain cereals, such as shredded wheat or cereals with bran. Fresh fruit and raw orcooked vegetables, especially asparagus, cabbage, carrots, corn, and broccoli are other good sources of fiber. Fluids Drink plenty of water. This helps to soften bowel movements so they are easier to pass. Sitz baths and cold packs Sitting in lukewarm water 2 or 3 times a day for 15 minutes cleans the anal area and may relieve discomfort. (If the bath water is too hot, swelling around the anus will getworse.) Also, you might try putting a cloth-covered ice pack on the anus for 10 minutes, 4 times a day. Medications For mild discomfort, your healthcare provider may prescribe a cream or ointment for thepainful area. The cream may contain witch nicole, zinc oxide, or petroleum jelly. Your provider may also prescribe medicated suppositories to put inside the rectum. Procedures and surgeries A number of procedures can be used to remove or shrink hemorrhoids. If youhave protruding internal hemorrhoids, your healthcare provider can do a procedure called hemorrhoidbanding. Your provider will put a tight band around the enlarged vein and either cut the hemorrhoidopen, remove any blood clots, and let the vein heal, or let the hemorrhoid dry up and fall off. This method is effective in most cases. Other methods include destroying the hemorrhoid with freezing, electrical or laser heat, or infrared light. Or your provider may shrink the hemorrhoid by injectinga chemical around the swollen vein. For severe cases of hemorrhoids, a surgical procedure called a h emorrhoidectomy may be done. For this procedure you are first given an anesthetic to prevent you from feeling pain. Then your provider cuts the inflamed parts of the hemorrhoids and removes them. How long will the effects last? Usually hemorrhoids do not pose a danger to your health. In most cases the symptoms go away in a few days. The painful lumps of more severe cases should get better in a couple of weeks. How can I take care of myself? Always tell your healthcare provider when you have rectal bleeding. Although bleeding may be from hemorrhoids, more serious illnesses, such as colon cancer, can also cause bleeding. Follow these guidelines to help prevent hemorrhoids and to relieve their discomfort: Do not strain during bowel movements. The straining makes hemorrhoids swell. Follow your high-fiber diet and drink plenty of water. If necessary, take a stool softener, such asHaley's M-O, psyllium, Metamucil or Citrucel, or mineral oil. Softer stools make it easier to emptythe bowels and reduce pressure on the veins. Don't overuse laxatives. Diarrhea can be as irritating to the anus as constipation. Ask your healthcare provider what nonprescription product you should buy to relieve pain and itching. Also, ask about any side effects of any medications prescribed for you. Exercise regularly to help prevent constipation. Avoid a lot of wiping after a bowel movement if you have hemorrhoids. Wiping with soft, moist toilet paper (or a commercial moist pad or baby wipe) may relieve discomfort. If necessary, shower instead of wiping, then dry the anus gently. Avoid lifting heavy objects when you have hemorrhoids. It may increase the pressure on the veins and make the hemorrhoids worse. Published by [employer]. This content is reviewed periodically and is subject to change as new health information becomes available. The information is intended to inform and educate and is not a replacement for medical evaluation, advice, diagnosis or treatment by a healthcare professional. Developed by [employer] Copyright 2007 [employer] and/or one of its subsidiaries. All Rights Reserved. Copyright [employer] 2007 Adult Health Advisor documented in this encounterShel[facility]10-[facility] History of Present illness Narrative* Lavonne Seay PA-C - 01/15/2023 9:30 AM EDT CC: Patient presents with: Recheck HPI Gilma Garcia is a 52 year old female who presents today to discuss SOB more in depth, and discuss CXR and labs. CXR negative for acute radiographic abnormality. Lab results per below From HPI previous visit on 12/31/22: States she's been having bouts during the day where I'm just gasping for air. Had a stress test within the past few years which was negative but she states it concerns her because there's an extensive family hx of cardiac disease. No hx of asthma or COPD. Denies any hx of smoking. She is around a lot of people that smoke (daughter, son, etc). Pt reports that she thinks that it's possible the SOB is anxiety. 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 Mentioned after the fact at the end of the visit: Patient reports that she has issues with pain while straining to go to the bathroom in the recent past. Slight blood on the tissue when she defecated. She thinks she may have felt a small palpable bulge previously, but has not had it thoroughly evaluated. REVIEW OF SYSTEMS See HPI All other systems negative. PAST MEDICAL HISTORY Diagnosis Date Acute cholecystitis Chronic low back pain HTN (hypertension) PAST SURGICAL HISTORY Procedure Laterality Date LAPAROSCOPY SURG CHOLECYSTECTOMY 05/23/2015 TONSILLECTOMY PRIMARY/SECONDARY <AGE 11 Tonsillectomy TUBAL LIGATION HX 1993 VAGINAL HYSTERECTOMY UTERUS 250 GM/< 2015 ALLERGIES Mobic [Meloxicam], Naproxen, Prednisone, Tylenol #3 [Codeine], and Vicodin [Hydrocodone-Acetaminophen] MEDICATIONS losartan (COZAAR) 25 mg tablet Take 1 tablet by mouth once daily. metoprolol succinate ER (TOPROL XL) 100 mg Take 1 tablet by mouth once daily. ergocalciferol 50,000 unit capsule (VITAMIN D2, DRISDOL) Take 1 capsule by mouth two times a week. TO BE TAKEN ORALLY DIRECTED. Take 1 tablet by mouth twice weekly [id number], then decrease to 1 tablet weekly. ibuprofen (MOTRIN) 800 mg tablet Take 1 tablet by mouth every 8 hours as needed for pain. Take withfood. FAMILY HISTORY Problem Relation Age of Onset Hypertension Mother Hypertension Father Coronary Artery Disease Mother Coronary Artery Disease Father Cancer Mother Breast Cancer Father Lung Social History Tobacco Use Smoking status: Never Smokeless tobacco: Never Vaping Use Vaping Use: Never used Substance Use Topics Alcohol use: No Drug use: No PHYSICAL EXAM BP 130/80 Pulse 80 Temp 36.4 C (97.6 F) (Temporal) Resp 16 Wt 94.3 kg (208 lb) LMP 09/26/2014 (Exact Date) BMI 36.85 kg/m General Appearance: well appearing, in no acute distress, alert Pysch: mood and affect broad and appropriate Skin: Skin color, texture, turgor normal for age Lungs: Lungs clear to auscultation. No wheezing, rhonchi, rales. Heart: RRR without murmur, gallop, or rubs. No ectopy Abdomen: Normal abdominal exam Rectal: Deferred today per patient request Extremities: No gross deformities, significant edema, skin discoloration, clubbing or cyanosis. Neurological: Gait normal. No focal neurological deficits. Sensation grossly intact. Component Latest Ref Rng & Units 01/08/2023 WBC 3.70 - 11.00 k/uL 8.19 RBC 3.90 - 5.20 m/uL 5.24 (H) Hemoglobin 11.5 - 15.5 g/dL 13.9 Hematocrit 36.0 - 46.0 % 45.0 MCV 80.0 - 100.0 fL 85.9 MCH 26.0 - 34.0 pg 26.5 MCHC 30.5 - 36.0 g/dL 30.9 RDW-CV 11.5 - 15.0 % 15.0 Platelet Count 150 - 400 k/uL 387 MPV 9.0 - 12.7 fL 10.1 Neut% % 63.3 Abs Neut (ANC) 1.45 - 7.50 k/uL 5.20 Lymph% % 24.1 Abs Lymph 1.00 - 4.00 k/uL 1.97 [place]% % 9.2 Abs [place] <0.87 k/uL 0.75 Eosin% % 2.0 Abs Eosin <0.46 k/uL 0.16 Baso% % 1.0 Abs Baso <0.11 k/uL 0.08 Immature Gran % % 0.4 IMMATURE GRANS (ABS) <0.10 k/uL 0.03 NRBC /100 WBC 0.0 Absolute nRBC <0.01 k/uL <0.01 DTYPE Auto Protein, Total 6.3 - 8.0 g/dL 7.0 Albumin 3.9 - 4.9 g/dL 4.1 Calcium 8.5 - 10.2 mg/dL 9.3 Bilirubin, Total 0.2 - 1.3 mg/dL 0.3 Alkaline Phosphatase 34 - 123 U/L 110 AST 13 - 35 U/L 17 ALT 7 - 38 U/L 16 Glucose 74 - 99 mg/dL 117 (H) BUN 7 - 21 mg/dL 12 Creatinine 0.58 - 0.96 mg/dL 0.74 Sodium 136 - 144 mmol/L 139 Potassium 3.7 - 5.1 mmol/L 4.5 Chloride 97 - 105 mmol/L 103 CO2 22 - 30 mmol/L 25 Anion Gap 9 - 18 mmol/L 11 eGFR >=60 mL/min/1.73m 97 Cholesterol, Total <200 mg/dL 161 Triglyceride <150 mg/dL 84 HDL Cholesterol >39 mg/dL 39 (L) Non HDL Cholesterol <130 mg/dL 122 Fasting Time hrs 12 VLDL Cholesterol <30 mg/dL 17 TC:HDL Ratio <5.10 4.13 LDL Cholesterol <100 mg/dL 105 (H) LDL:HDL Ratio <2.54 2.69 (H) Hemoglobin A1C 4.3 - 5.6 % 6.4 (H) Estimated Average Glucose mg/dL 137 ASSESSMENT/PLAN: 1. Anxiety - ICD9: 300.00, ICD10: F41.9 (primary diagnosis) Discussed various treatment options including pharmacologic management, counseling, as well as referral to behavioral health. Patient is opting to trial on antidepressant medication at this time. Discussed medication indications, proper use, and potential adverse effects. All questions and concernsaddressed to patient satisfaction. Will reassess efficacy, and make any further dosage adjustments in 4-6 weeks. 2. SOB (shortness of breath) - ICD9: 786.05, ICD10: R06.02 Possibly psychosomatic, and related to anxiety. See above Reassurance provided regarding normal chest x-ray. 3. Prediabetes - ICD9: 790.29, ICD10: R73.03 Discussed prediabetes diagnosis, and the fact that this is a totally irreversible process and does not necessarily turn into diabetes with implementation of appropriate lifestyle changes. Encouraged working on healthy, balanced diet and minimizing excess carbohydrates, such as pizzas, pastas, breads, sweets/desserts, juices, sodas, sugary coffee beverages, etc. Encouraged regular exercise for at least -5 days/week, at least 20 minutes a day. We will continue to monitor sugars over time. 4. Low HDL (under 40) - ICD9: 272.5, ICD10: E78.6 - Counseled on healthy diet and regular exercise 5. Rectal pain - ICD9: 569.42, ICD10: K62.89 Suspect symptoms to be a result of underlying constipation. No evidence of acute abdomen on exam. Advise pushing the fluids, including incorporating apple juice or prune juice, as well as increased activity in hopes of increasing propagation through the bowel. Encouraged sitz baths for discomfort. Rx for senna, as MiraLAX has been ineffective previously. Will trial on topical steroid in the interim, advised patient that we should check rectum next visit if still having issues - HYDROCORTISONE 2.5 % TOPICAL CREAM WITH PERINEAL APPLICATOR - SENNOSIDES 8.6 MG TABLET - SITZ TYPE BATH, PORTABLE 6. Constipation, unspecified constipation type - ICD9: 564.00, ICD10: K59.00 See above - SENNOSIDES 8.6 MG TABLET - SITZ TYPE BATH, PORTABLE Follow-up 6 weeks mood on zoloft, f/u rectal pain Prescription instructions reviewed with patient as applicable. Potential red flag symptoms discussed with the patient. Reviewed appropriate action plan to take if red flag symptoms occur. Patient agreeable to treatment plan. Lavonne Seay PA-C documented in this encounterShel[facility]10-03-2023 History of Present illness Narrative* Michelle Haley RT(R) - 01/08/2023 8:20 AM EDT Radiology Service Progress Note PATIENT NAME: Gilma Garcia DATE OF SERVICE: January 08, 2023 TIME: 8:17 AM PATIENT IDENTITY VERIFICATION COMPLETED USING TWO (2) IDENTIFIERS: Name and Date of confirmedby patient verbally. FALL SCREENING: Has the patient had 2 falls in the last year or 1 fall with injury or currently using an Ambulatory Assistive Device (Walker, Cane, Wheelchair, Crutches, etc.)? No PATIENT GENDER DATA: Female. status: : No status: NO. PATIENT RELEVANT IMPLANT DATA REVIEWED: Not Applicable RADIOLOGY DEPARTMENT: General X-ray: Exam(s) Completed: Chest X-Ray PERIPHERAL IV DATA: Not applicable SIGNED BY: RT Benja(R) January 08, 2023 8:17 AM documented in this encounterShelby [facility]09-25-2023 Miscellaneous Notes* Telephone Encounter - Lavonne Seay PA-C - 12/31/2022 2:08 PM EDT Already addressed today at appt. Lavonne Seay PA-C documented in this encounterShelby [facility]09-25-2023 History of Present illness Narrative* Lavonne Seay PA-C - 12/31/2022 1:24 PM EDT CC: Patient presents with: Follow Up: left knee pain 5/10 sore last therapy appt Saturday HPI Gilma Garcia is a 52 year old female who presents today to reassess status of left hip and knee pain status post fall 10/25/2022 (now about 2 months following). Last visit was on 12/05/2022; Had been seen in ED and Xrs were negative. At that time, physical therapy was ordered which she started on 12/19/22. She has had 4 visits thus far. Hip no longer having any pain. L knee pain is not presentwith going up and down stairs, but she states she's still concerned about the swelling. She has herlast visit on Saturday, and will ask if he's concerned about the swelling. No limited functionality with ROM or pain. States she's been having bouts during the day where I'm just gasping for air. Had a stress test within the past few years which was negative but she states it concerns her because there's an extensive family hx of cardiac disease. No hx of asthma or COPD. Denies any hx of smoking. She is around alot of people that smoke (daughter, son, etc). REVIEW OF SYSTEMS See HPI All other systems negative. PAST MEDICAL HISTORY Diagnosis Date Acute cholecystitis Chronic low back pain HTN (hypertension) PAST SURGICAL HISTORY Procedure Laterality Date LAPAROSCOPY SURG CHOLECYSTECTOMY 05/23/2015 TONSILLECTOMY PRIMARY/SECONDARY <AGE 11 Tonsillectomy TUBAL LIGATION HX 1993 VAGINAL HYSTERECTOMY UTERUS 250 GM/< 2015 ALLERGIES Mobic [Meloxicam], Naproxen, Prednisone, Tylenol #3 [Codeine], and Vicodin [Hydrocodone-Acetaminophen] MEDICATIONS losartan (COZAAR) 25 mg tablet Take 1 tablet by mouth once daily. metoprolol succinate ER (TOPROL XL) 100 mg Take 1 tablet by mouth once daily. ergocalciferol 50,000 unit capsule (VITAMIN D2, DRISDOL) Take 1 capsule by mouth two times a week. TO BE TAKEN ORALLY DIRECTED. Take 1 tablet by mouth twice weekly [id number], then decrease to 1 tablet weekly. ibuprofen (MOTRIN) 800 mg tablet Take 1 tablet by mouth every 8 hours as needed for pain. Take withfood. FAMILY HISTORY Problem Relation Age of Onset Hypertension Mother Hypertension Father Coronary Artery Disease Mother Coronary Artery Disease Father Cancer Mother Breast Cancer Father Lung Social History Tobacco Use Smoking status: Never Smokeless tobacco: Never Vaping Use Vaping Use: Never used Substance Use Topics Alcohol use: No Drug use: No PHYSICAL EXAM BP 142/80 (BP Site: Left Arm, BP Position: Sitting, BP Cuff Size: Large Adult) Pulse 90 Temp 36.6 C (97.8 F) Resp 12 Ht 160 cm (5' 3) Wt 93 kg (205 lb) LMP 09/26/2014 (Exact Date) [id number]% BMI 36.31 kg/m General Appearance: well appearing, in no acute distress, alert, obese Pysch: mood and affect broad and appropriate Skin: Skin color, texture, turgor normal for age; Lungs: Lungs clear to auscultation. No wheezing, rhonchi, rales. Heart: RRR without murmur, gallop, or rubs. No ectopy Extremities: No deformities, edema, skin discoloration, clubbing or cyanosis. Good capillary refill. Musculoskeletal: Negative exam left hip and left knee ASSESSMENT/PLAN: 1. Acute pain of left knee - ICD9: 719.46, ICD10: M25.562 (primary diagnosis) Status post fall in 10/25. Improving with physical therapy. We will continue with current plan and reassess upon completion. Consider MRI if still having residual swelling/pain. - CBC + DIFF 2. Acute hip pain, left - ICD9: 719.45, ICD10: M25.552 Resolved at this point in time-see above - CBC + DIFF 3. Essential hypertension, benign - ICD9: 401.1, ICD10: I10 -Borderline today - Continue current medications - Recommend home blood pressure monitoring, to bring results to next visit - Encouraged sodium restriction, DASH or Mediterranean diet - Recommend regular aerobic exercise - Discussed need for and benefit of weight loss. BMI 36.31 kg/(m^2) - COMP METABOLIC PANEL - CBC + DIFF 4. Vitamin D deficiency - ICD9: 268.9, ICD10: E55.9 For which patient was on prescription strength vitamin D-we will check updated levels - VITAMIN D 25 HYDROXY - COMP METABOLIC PANEL - CBC + DIFF 5. Hypokalemia - ICD9: 276.8, ICD10: E87.6 History of this, but then had losartan added and since in hopes of preventing this going forward. We will check updated metabolic panel. - COMP METABOLIC PANEL 6. Prediabetes - ICD9: 790.29, ICD10: R73.03 Last A1c 6.2 in 01/25. Will obtain updated A1c. - HGB A1C 7. SOB (shortness of breath) - ICD9: 786.05, ICD10: R06.02 More noticeable in the recent past. Will obtain chest x-ray, patient opting to hold off on EKG/further cardiac work-up until next appointment. Will assess other risk factors in the interim. - XR CHEST 2V FRONTAL/LAT 8. History of TIA (transient ischemic attack) - ICD9: V12.54, ICD10: Z86.73 See above - LIPID PANEL BASIC 9. Lipid screening - ICD9: V77.91, ICD10: Z13.220 Routine screening labs ordered to further evaluate. - LIPID PANEL BASIC 10. Screening mammogram for breast cancer - ICD9: V76.12, ICD10: Z12.31 - Set up for mammogram, yearly mammogram recommended - Encouraged monthly BSE - BI SCREENING W GIULIA F/u 4 weeks for routine issues, discuss labs, and discuss SOB more In depth Prescription instructions reviewed with patient as applicable. Potential red flag symptoms discussed with the patient. Reviewed appropriate action plan to take if red flag symptoms occur. Patient agreeable to treatment plan. Lavonne Seay PA-C documented in this encounterShelby [facility]09-25-2023 History of Present illness Narrative* Branden Martinez, PT - 12/31/2022 10:19 AM EDT Episode Visit Count: 4 Therapist That Will Accept/Oversee The Plan Of Care: Branden Martinez PT. Start of Care Date: 12/19/22 Onset Date: 10/25/22 Plan of Care Certification Date: 09/18/22 Next Certification Due Date: 10/23/22 Patient Identified by Name and Date of : Yes REHABILITATION AND SPORTS THERAPY PHYSICAL THERAPY TREATMENT NOTE ASSESSMENT: Gilma Garcia tolerated the session with fatigue and expected muscle soreness. Shedemonstrated improvements in tolerance to standing exercise. The patient will continue to benefit from ongoing skilled physical therapy to progress toward set goals. PLAN FOR NEXT VISIT: Asses response to standing exercies and possibly give for HEP. SUBJECTIVE: Pt reports that her knee is feeling much better in relation to the pain and sensation. Pt stated that she might make next session her last visit since she is feeling well. Pain: Pain Pain Level: 6 Pain Location: Knee - Left Description: Aching Frequency: Continuous Post Treatment Pain Post Treatment Pain Location: Knee - Left OBJECTIVE MEASURES WITH LEVEL OF FUNCTION: Light quad lag with LAQ TREATMENT: Therapeutic Exercise: 1: Seated stepper x 5 minutes, seat # 11. 1:1 throughout, discussed exercsies and how to progress than, subjective collected. 2: Seated L HS Stretch: 3x30 3: Standing hip abduction 2x10 B 4: Standing hip extension 2x10 B 5: Seated HS curls with GTB 2x10 LLE 6: L LAQ 2x10 Skilled Intervention: Patient was educated in proper exercise technique and purpose for exercises. Skilled judgment was provided in selection of appropriate interventions. Correct performance of therapeutic exercises was facilitated with verbal and visual cuing. Billing Therapeutic Exercise Treatment Minutes: 39 Skilled Treatment Time Minutes (timed and untimed codes): 39 Total Session Time (minutes): 39 Session Start Time : 1016 Session Stop Time : 1055 BINA Garcia, PT, DPT. documented in this encounterShelby [facility]09-18-2023 History of Present illness Narrative* Branden Martinez, PT - 12/24/2022 12:30 PM EDT Episode Visit Count: 3 Therapist That Will Accept/Oversee The Plan Of Care: Branden Martinez PT. Start of Care Date: 12/19/22 Onset Date: 10/25/22 Plan of Care Certification Date: 09/18/22 Next Certification Due Date: 10/23/22 Patient Identified by Name and Date of : Yes REHABILITATION AND SPORTS THERAPY PHYSICAL THERAPY TREATMENT NOTE ASSESSMENT: Gilma Garcia tolerated the session with fatigue and expected muscle soreness. Shedemonstrated difficulty with SL clamnshells. The patient will continue to benefit from ongoing skilled physical therapy to progress toward set goals. PLAN FOR NEXT VISIT: Assess response to SL exercises. Continue with L knee and hip strengthening. SUBJECTIVE: Pt reports that the exercises are going well and her knee is starting to feel a little better. Pain: Pain Pain Level: 7 Pain Location: Knee - Left Description: Throbbing Frequency: Continuous Post Treatment Pain Post Treatment Pain Level: No Change Post Treatment Pain Location: Knee - Left OBJECTIVE MEASURES WITH LEVEL OF FUNCTION: Difficulty completing SL clamshells today without compensation. TREATMENT: Therapeutic Exercise: 1: Seated stepper x 5 minutes, seat # 11. 1:1 throughout, discussed current HEP, subjective collected. 2: Seated L HS Stretch: 3x30 3: L LAQ 2x10 4: L SLR 2x10 5: Prone hip extesnion 2x10 6: SL hip abduction 2x10 7: SL L clamshell 2x10 8: Seated hip adduction with pillow 2x10 Skilled Intervention: Patient was educated in proper exercise technique and purpose for exercises. Skilled judgment was provided in selection of appropriate interventions. Correct performance of therapeutic exercises was facilitated with verbal and visual cuing. Billing Therapeutic Exercise Treatment Minutes: 38 Skilled Treatment Time Minutes (timed and untimed codes): 38 Total Session Time (minutes): 38 Session Start Time : 1229 Session Stop Time : 1307 BINA Garcia, PT, DPT. documented in this encounterShelby [facility]09-15-2023 History of Present illness Narrative* Branden Martinez, PT - 12/21/2022 8:03 AM EDT Episode Visit Count: 2 Therapist That Will Accept/Oversee The Plan Of Care: Branden Martinez PT. Start of Care Date: 12/19/22 Onset Date: 10/25/22 Plan of Care Certification Date: 09/18/22 Next Certification Due Date: 10/23/22 Patient Identified by Name and Date of : Yes REHABILITATION AND SPORTS THERAPY PHYSICAL THERAPY TREATMENT NOTE ASSESSMENT: Gilma Garcia tolerated the session with fatigue and decreased symptoms. She demonstrated difficulty with SLR. The patient will continue to benefit from ongoing skilled physical therapy to progress toward set goals. PLAN FOR NEXT VISIT: Consider SL hip abdcution. SUBJECTIVE: Pt reports that she is having some pain today. Pt thinks that she over did it with her exercises at home. Pt completing HEP 2x per day. Pain: Pain Pain Level: 8 Pain Location: Knee - Left Description: Throbbing Frequency: Continuous Post Treatment Pain Post Treatment Pain Level: Better Post Treatment Pain Location: Knee - Left OBJECTIVE MEASURES WITH LEVEL OF FUNCTION: Tension felt throughout hamstring tendons. TREATMENT: Therapeutic Exercise: 1: Seated stepper x 5 minutes, seat # 11. 1:1 throughout, discussed current HEP, subjective collected. 2: L LAQ 2x10 3: L Hip ADD Squeeze Iso: 2x10, 5 sec hold. 4: L Hip ABD, PTB pull-apart Iso: 2x10, 5 hold. 5: Seated L HS Stretch: 3x30 6: L SLR 2x10 7: Prone quad stretch with strap 3x30 seconds L Skilled Intervention: Patient was educated in proper exercise technique and purpose for exercises. Skilled judgment was provided in selection of appropriate interventions. Correct performance of therapeutic exercises was facilitated with verbal and visual cuing. Manual Therapy: 1: STM with foam roller to hamstrings x 5 minutes Skilled Intervention: Manual skills to improve joint mobility, ROM, and decrease pain. Utilized anatomy knowledge of the therapist, and assessment of patient's response to intervention. Billing Therapeutic Exercise Treatment Minutes: 40 Manual TherapyTreatment Minutes: 5 Skilled Treatment Time Minutes (timed and untimed codes): 45 Total Session Time (minutes): 45 Session Start Time : 0800 Session Stop Time : 0845 BINA Garcia PT, DPT. documented in this encounterShelby [facility]09-13-2023 Miscellaneous Notes* Telephone Encounter - Marii Mcclain RN - 12/19/2022 4:46 PM EDT Patient aware and picked up prescription already. Marii Mcclain RN documented in this encounterShelby [facility] Hospital09-13-2023 History of Present illness Narrative* Branden Martinez PT - 12/19/2022 8:12 AM EDT Episode Visit Count: 1 Therapist That Will Accept/Oversee The Plan Of Care: Branden Martinez PT. Start of Care Date: 12/19/22 Onset Date: 10/25/22 Plan of Care Certification Date: 09/18/22 Next Certification Due Date: 10/23/22 Patient Identified by Name and Date of : Yes REHABILITATION AND SPORTS THERAPY PHYSICAL THERAPY EVALUATION PLAN OF CARE: Assessment: Gilma Garcia presents with chief complaint of Left Knee and Hip pain and possiblediagnosis of pes anserine syndrome that interferes with rising from a chair, standing, walking, walking in the house, walking in the community, stair negotiation, physical activities, recreational activities, sleeping . She presents with impairments in ADL's/IADLs, flexibility, gait, independence in exercise, overall function, patient reported outcome measures, soft tissue healing, strength, symptom management, and tissue tenderness. PROMIS (Patient-Reported Outcomes Measurement Information System) scores were reviewed and self efficacy domain identified as a rehabilitation concern. Prognosisfor therapy is Good due to: current objective clinical presentation, acuteness of condition, good support system/ coping skills . She will benefit from skilled therapy services to meet the goals established for this plan of care as noted below. Goals for Episode of Care: created on 12/19/22 through 01/30/23 [place] in home exercise program. Patient will decrease pain rating by 2 points to meet minimal clinical important difference for numeric pain rating scale. Patient will demonstrate increase in LLE strength to 5/5 during manual muscle testing in order to improve function for basic self-care tasks, home management tasks, leisure / recreation skills, lightfunctional tasks, and prior functional tasks. Patient will demonstrate increase in L Quad/HS strength to WNL/compared to noninvolved R Side during handheld dynamometer testing. Perform walking and stair negotiation with decreased report of symptoms/pain in 4-6 weeks. Perform getting in and out of the car & shower without pain. Normal gait. Patient Goals: Walk without pain; go up and down the stairs without pain. Planned Interventions, Frequency, and Duration: Current Frequency: 2x/week Duration: 3 weeks Total Number of Visits Planned: 6 Planned Treatment Interventions: Therapeutic exercise (50463), Neuromuscular re- education (31440), Manual therapy (42867), Therapeutic activities (71387), Self- senior living management (03422), Gait Training (79178), Patient/Family/Caregiver Education, Body Mechanics Training PLAN FOR NEXT VISIT: Assess HEP; manual STM PRN; manual flexibility quads & HS; progress general Hip & Knee strength as able. Patient demonstrates good understanding of plan of care and treatment. The above goals and plan of care were discussed and agreed upon by patient/family. SUBJECTIVE: Patient reports a fall forward after stepping in a hole, while walking her dog on 10/25/22; she landed on her L knee and L hip. She visited the ED the next day due to continued pain and radiographs came back negative. Patient states continued L Knee & Hip Pain (Knee > Hip); states the pain & swelling in the L Knee and the pain feels more superficial in nature; patient with most pain during walking, descending stairs and lifting her LLE over the bath tub to take a shower. Denies using an assistive device for ambulation, knee locking and giving out. Patient Goals: Walk without pain; go up and down the stairs without pain. Functional Limitations: rising from a chair, standing, walking, walking in the house, walking in the community, stair negotiation, physical activities, recreational activities, sleeping Prior Level of Function: Independent without limitations Relevant History Past Relevant Medical Conditions: Hypertension Right or Left Handed: (Right Foot Dominant) Employment: Unemployed Recreation / Current Exercise: None Intake Information: Prescription present Previous Treatment: Heat (Tylenol takes the edge off.) Falls Interview: Fall with injury in the last year Falls Intervention: More thorough falls assessment to be performed Pain: Pain Pain Level: 8 (Knee Pain is typically averaged at 8/10 on NPRS.) Pain Location: Knee - Left Description: Throbbing Frequency: Continuous Post Treatment Pain Post Treatment Pain Level: No Change Post Treatment Pain Location: Knee - Left PROMIS Scales Higher is Better 12/16/2022 10/19/2022 09/18/2022 Phys Func - Score 40 (mild dysfunction) 48 (within normal limits) 41 (mild dysfunction) Phys Func - Percentile 16 % 42 % 18 % Self-Eff Symptom - Score 42 (Average) 49 (Average) 39 (Low) Self-Eff Symptom - Percentile 21 % 46 % 14 % T-scores: mean of general population = 50. 5 points is clinically meaningfully difference Percentiles provide an indication of how the patient's score ranks in relation to the general population. Higher percentile rankings indicate better function/quality of life. 50th percentile is the average of the general population and indicates half of respondents had a worse score. OBJECTIVE MEASURES WITH LEVEL OF FUNCTION: Knee Observations L Knee Presents with: Swelling L Swelling: Light swelling over Pes Anserine L Knee Palpation Tenderness: Medial joint line, Lateral joint line, Pes anserinus, Medial Hamstring, Comments Comments: Tenderness to TFL/Gluteals. Knee Brace: None LE AROM R LE AROM: Grossly WNL L LE AROM: Grossly WNL LE Flexibility Flexibility: Hamstring Flexibility, Quadriceps Flexibility R Hamstring Flexibility: Poor L Hamstring Flexibility: Poor R Quadriceps Flexibility: Poor L Quadriceps Flexibility: Poor LE Joint Mobility R Patellar Mobility: WNL L Patellar Mobility: WNL LE Strength R LE Strength: Grossly 5/5 L Hip Extension: 4+/5 L Hip Flexion (L2): 3+/5 (Painful) L Hip ABduction: 3+/5 (Painful) L Hip ADduction: 4+/5 L Hip Internal Rotation: 4+/5 L Hip External Rotation: 4/5 (Painful) L Knee Extension (L3): 3+/5 (Painful) L Knee Flexion: 4/5 L Ankle Dorsiflexion (L4): 5/5 L Ankle Plantar Flexion: 5/5 Lower Extremity Dynamometer Testing : Yes Dynamometer Strength Right Quadriceps Strength (lbs): 24.7 Left Quadriceps Strength (lbs): 14.6 Quad Strength Limb Symmetry Index (%): 59.11 Right Hamstring Strength (lbs): 22.9 Left Hamstring Strength (lbs): 19.6 Hamstring Strength Limb Symmetry Index(%): 85.59 Special Tests - Knee Knee Special Tests: Anterior Drawer, Apleys Test, Rudolph, David's Test, Valgus stress at 0 degrees, Varus stress at 0 degrees, Thessaly's Test, Comments Anterior Drawer: Left Negative Apleys Test - Distraction: Left Negative Apleys Test - Compression: Left Negative Rudolph: Left Negative David's Test: Left Negative Thessaly's Test: Thessaly's Test (5 degrees flexion) Thessaly's Test (5 degrees flexion): Left Negative Valgus stress at 0 degrees: Left Negative Varus stress at 0 degrees: Left Negative Special Tests Comments: L Eccentric Step Down (Poor Tracking, Valgus Collapse). Gait Weight Bearing Status: FWB Gait: Independent Gait Device: None Gait Deviations: Left Lower Extremity, General Deviations Gait Deviations Left Lower Extremity: Stance time decreased, Trendelenburg General Deviations/Observations: Antalgic gait Education: Education Learning/educational needs: Health promotion, Safety, Home exercise program, Plan of Care, Changes in Plan of Care, Gait Training, Body Mechanics TREATMENT: PT Treatment Interventions: Therapeutic Exercise, Manual Therapy, Self-Halfway Management Evaluation Therapeutic Exercise: 1: *L LAQ: 1x10 2: *L SLR: 1x10 3: *L Standing Hip ABD: 1x10 4: *L Hip ADD Squeeze Iso: 1x10, 5 sec hold. 5: *L Hip ABD, PTB pull-apart Iso: 1x10, 5 hold. 6: *L HS Stretch: 1x30 Skilled Intervention: Patient was educated in proper exercise technique and purpose for exercises. Reviewed and educated patient on additions/changes for home exercise program as above (*). Skilled judgment was provided in selection of appropriate interventions. Provided written instruction for home exercise program to facilitate proper performance and compliance. Correct performance of therapeutic exercises was facilitated with verbal, visual, and tactile cuing. Manual Therapy: 1: STM with hands around L pes anserine & STM with foam roller to L medial hamstrings. Skilled Intervention: Manual skills to improve joint mobility, ROM, and decrease pain. Utilized anatomy knowledge of the therapist, and assessment of patient's response to intervention. Self-Halfway Management: 1: *Education on POC, HEP, possible diagnosis and overall deficits measured objectively during evaluation. Role of therapy discussed and patient agreed to care and plan moving forward. 2: *Patient educated to refrain from any activity or exercise that increases her pain and symptoms;explained to patient during sub-acute phase of healing that slight discomfort and light dull tolerable pain is appropriate during exercises as well as muscle soreness following. Skilled Intervention: Skilled judgment in the selection of proper modification for activity of daily living/home management based on clinical presentation, deficits, and needs. Reviewed patient specific diagnosis in relation to activities of daily living/home management. Activity progression based on professional judgement. Billing * Evaluation Low Complexity: 1 Unit Therapeutic Exercise Treatment Minutes: 10 Manual TherapyTreatment Minutes: 15 Self-Care/Home Management Treatment Minutes: 5 Skilled Treatment Time Minutes (timed and untimed codes): 45 Total Session Time (minutes): 45 Session Start Time : 0815 Session Stop Time : 0900 Branden Martinez PT documented in this encounterS[facility]23 Miscellaneous Notes* Telephone Encounter - Inna Florentino LPN - 12/17/2022 1:20 PM EDT Gilma, our office did receive your refill request for Losartan (Cozaar) however, a new prescription was sent to [facility], 12/13/2022 for 30 tablets, 2 refills. Please check with your pharmacy. Inna Florentino LPN documented in this encounterShelby [facility]08-30-2023 History of Present illness Narrative* Lavonne Seay PA-C - 12/05/2022 11:04 AM EDT CC: Patient presents with: Same Day Appointment: left hip and knee pain since October 26 fall from dog pulling her down HPI Gilma Garcia is a 52 year old female who presents today for left hip and knee pain persistingfollowing fall 10/25/22. She was evaluated [facility] ED on 10/26, and had Xrs obtained which were both negative. Knee pain: Located: medial, extending down into medial tibia. Described as throbbing and aching, rated as 8 nury scale of 1-10 - continuous Injury: The patient was injured, fell in hole and landed on left knee - possibly twisted it Aggravated by: going up stairs and going down stairs Knee popping or clicking with movement? Yes - isolated episode the other day Knee locking or feel like is giving-out? No Does the knee pain wake you up at night:Yes Previous injury: No Previous surgery: No Treatment: ice, heat, Ibuprofen, and Tylenol with minimal relief of symptoms Hip pain: Doesn't bother her as much as knee. Describes as soreness and stiffness, just when she's moving it Pain is ~7/10, not constant - only elicited with movement, such as getting in the bath tub to take a shower or getting in and out of a car REVIEW OF SYSTEMS See HPI All other systems negative. PAST MEDICAL HISTORY Diagnosis Date Acute cholecystitis Chronic low back pain HTN (hypertension) PAST SURGICAL HISTORY Procedure Laterality Date LAPAROSCOPY SURG CHOLECYSTECTOMY 05/23/2015 TONSILLECTOMY PRIMARY/SECONDARY <AGE 11 Tonsillectomy TUBAL LIGATION HX 1993 VAGINAL HYSTERECTOMY UTERUS 250 GM/< 2015 ALLERGIES Mobic [Meloxicam], Naproxen, Prednisone, Tylenol #3 [Codeine], and Vicodin [Hydrocodone-Acetaminophen] MEDICATIONS metoprolol succinate ER (TOPROL XL) 100 mg Take 1 tablet by mouth once daily. losartan (COZAAR) 25 mg tablet Take 1 tablet by mouth once daily. chlorthalidone (HYGROTON) 25 mg tablet Take 1 tablet by mouth once daily. potassium chloride (K-TAB) 10 mEq tablet Take 1 tablet by mouth daily with breakfast. ergocalciferol 50,000 unit capsule (VITAMIN D2, DRISDOL) Take 1 capsule by mouth two times a week. TO BE TAKEN ORALLY DIRECTED. Take 1 tablet by mouth twice weekly [id number], then decrease to 1 tablet weekly. ibuprofen (MOTRIN) 800 mg tablet Take 1 tablet by mouth every 8 hours as needed for pain. Take withfood. FAMILY HISTORY Problem Relation Age of Onset Hypertension Mother Hypertension Father Coronary Artery Disease Mother Coronary Artery Disease Father Cancer Mother Breast Cancer Father Lung Social History Tobacco Use Smoking status: Never Smokeless tobacco: Never Vaping Use Vaping Use: Never used Substance Use Topics Alcohol use: No Drug use: No PHYSICAL EXAM BP 132/70 (BP Site: Left Arm, BP Position: Sitting, BP Cuff Size: Large Adult) Pulse 79 Temp 36.4 C (97.6 F) Resp 12 Ht 160 cm (5' 3) Wt 92.1 kg (203 lb) LMP 09/26/2014 (Exact Date) SpO2 97% BMI 35.96 kg/m General Appearance: well appearing, in no acute distress, alert Psych: mood and affect broad and appropriate Musculoskeletal: Left knee- edema medial, with extension into proximal tibia- to inspection. Tenderness:medial tibial condyle: Yes and medial joint line: Yes. Flexion:Limitation: No, Pain:No; Extension:Limitation:Yes, Pain:Yes. Laxity: No Lower extremities: no cyanosis or clubbing, Localized edema noted proxima medial tibia (possible effusion?). Muscle strength- Mildly diminished LLE/left knee in comparison to R when checking extension Extremities: No gross deformities, significant edema, skin discoloration, clubbing or cyanosis. Neurological: Gait normal. No focal neurological deficits. Sensation grossly intact. ASSESSMENT/PLAN: 1. Acute pain of left knee - ICD9: 719.46, ICD10: M25.562 (primary diagnosis) XR of both left knee and hip normal in ED. continue with ibuprofen as tolerated, also suggest compression sleeve versus Pedro wrap to assist with swelling/effusion. Will proceed w/ physical therapy at this time per patient request. Will consider ortho consult if issue persists or progresses. - CONSULT TO PHYSICAL THERAPY 2. Acute hip pain, left - ICD9: 719.45, ICD10: M25.552 See above - CONSULT TO PHYSICAL THERAPY 3. Localized swelling of left lower leg - ICD9: 782.2, ICD10: R22.42 See above Follow-up 6 weeks reassess status left hip and left knee Prescription instructions reviewed with patient as applicable. Potential red flag symptoms discussed with the patient. Reviewed appropriate action plan to take if red flag symptoms occur. Patient agreeable to treatment plan. Lavonne Seay PA-C documented in this encounterShelby [facility]08-10-2023 History of Present illness Narrative* Demetria Rojo RT(R) - 11/15/2022 11:40 AM EDT Radiology Service Progress Note PATIENT NAME: Gilma Garcia DATE OF SERVICE: November 15, 2022 TIME: 11:38 AM PATIENT IDENTITY VERIFICATION COMPLETED USING TWO (2) IDENTIFIERS: Name and Date of confirmedby patient verbally. FALL SCREENING: Has the patient had 2 falls in the last year or 1 fall with injury or currently using an Ambulatory Assistive Device (Walker, Cane, Wheelchair, Crutches, etc.)? No PATIENT GENDER DATA: Female. status: : No status: NO. PATIENT RELEVANT IMPLANT DATA REVIEWED: Yes RADIOLOGY DEPARTMENT: General X-ray: Exam(s) Completed: Spine X-Ray(s): Cervical AP / LAT / FLEX-EXT PERIPHERAL IV DATA: Not applicable SIGNED BY: RT Sneha(R) November 15, 2022 11:38 AM documented in this encounterShelby [facility]08-10-2023 History of Present illness Narrative* Jennifer Lucas DO - 11/15/2022 10:46 AM EDT Images from the original note were not included. Reason for Visit/Chief Complaint Gilma Garcia is a 52 year old female who presents today for a new evaluation of following complaint: Patient presents with: Right Wrist - New Left Wrist - New History of Present Illness: PAIN EVALUATION 11/15/2022 1046 Pain Level: 9 Pain Location: Wrist-Left wrist,right Description: Tingling;Sharp Duration Amount of Time: 4 Duration Units: Years Frequency: Continuous Intervention/Comfort measure: Medication;Heat HPI: Gilma Garcia is a 52 year old female presenting today with bilateral wrist pain. Pain history is noted as above. Patient reports constant pain that increases with activity. She takes OTC medication and uses parraffin dip for pain relief. She had an EMG on 09/07/22 which was negative, had surgery for her right carpal tunnel 10 years ago and still has pain and numbness into both hands. Previous Treatments: Ice: Yes Heat: Yes Brace: Yes, bilateral use daily when awake NSAIDs: Yes, Ibuprofen Injections: No Surgeries: Yes, 10+ years Physical Therapy: No Review of Systems: Patient did not have, and does not currently have, any weight loss, malaise, fever, chills, headache, chest pain, chest pressure, palpitations, cough, shortness of breath, orthopnea, paroxsymal nocturnal dyspnea, nausea, vomiting, diarrhea, constipation, melena, hematochezia, urinary difficulties, prolonged bleeding, easily bruising, heat or cold intolerance, new onset joint pain or swelling, newonset extremity weakness or numbness, new onset auditory or visual disturbances, lightheadedness, dizziness, partial loss of consciousness or full loss of consciousness. Current Outpatient Medications on File Prior to Visit Medication Sig losartan (COZAAR) 25 mg tablet Take 1 tablet by mouth once daily. ergocalciferol 50,000 unit capsule (VITAMIN D2, DRISDOL) Take 1 capsule by mouth two times a week. TO BE TAKEN ORALLY DIRECTED. Take 1 tablet by mouth twice weekly [id number], then decrease to 1 tablet weekly. ibuprofen (MOTRIN) 800 mg tablet Take 1 tablet by mouth every 8 hours as needed for pain. Take withfood. metoprolol succinate ER (TOPROL XL) 100 mg Take 1 tablet by mouth once daily. chlorthalidone (HYGROTON) 25 mg tablet Take 1 tablet by mouth once daily. potassium chloride (K-TAB) 10 mEq tablet Take 1 tablet by mouth daily with breakfast. No current facility-administered medications on file prior to visit. ALLERGIES Allergen Reactions Mobic [Meloxicam] Hives Naproxen GI Upset Prednisone Hives, Shortness of Breath Tylenol #3 [Codeine] Hives Vicodin [Hydrocodon* GI Upset Nausea Physical Exam: Vitals: LMP 09/26/2014 Psych: Pleasant, good affect and mood General Appearance: Well appearing, alert, in no acute distress, well-hydrated, well nourished.. Skin: Skin color, texture, turgor normal, no suspicious rashes or lesions. Peripheral Pulses: Normal. Neurologic: Gait normal. Reflexes normal and symmetric. Sensation grossly intact.. Lymph Nodes: No cervical lymphadenopathy, No supraclavicular lymphadenopathy, No axillary lymphadenopathy., and No inguinal lymphadenopathy.. Respiratory: No recent pulmonary infection, hemoptysis, chronic cough, or shortness of breath at rest Rheumatologic: Joint deformities: bilateral ue radiculopathy Right Hand Exam Right hand exam is normal. Tenderness The patient is experiencing no tenderness. Range of Motion The patient has normal right wrist ROM. Wrist Extension: normal Flexion: normal Pronation: normal Supination: normal Muscle Strength The patient has normal right wrist strength. Tests Phalen s Sign: negative Tinel's sign (median nerve): negative Nhan's test: negative Other Erythema: absent Sensation: normal Pulse: present Comments: B/l med/uln/rad/ax nerves intact Left Hand Exam Left hand exam is normal. Tenderness The patient is experiencing no tenderness. Range of Motion The patient has normal left wrist ROM. Wrist Extension: normal Flexion: normal Pronation: normal Supination: normal Muscle Strength The patient has normal left wrist strength. Tests Phalen s Sign: negative Tinel's sign (median nerve): negative Nhan's test: negative Other Erythema: absent Sensation: normal Pulse: present Imaging: Last XR Hand/Finger - Impression Only No resulted procedures found. Assessment and Plan: Impression: Encounter Diagnosis ICD-10-CM 1. Cervical radiculopathy M54.12 XR CERV OTHER 4V AP/LAT/FLX/EXT Plan: Today, in detail, through a thorough evaluation, we discussed possible etiologies of pain and our plans for further diagnostic and therapeutic interventions. We discussed strategies for decreasing pain and improving strength, stability and motion. Patient's questions were answered in detailed. Patient verbalizes understanding and agrees with the treatment plan as discussed. Discussed in detail negative emg findings coupled with previous carpal tunnel surgery and and due to the fact that may have cervical spine etiology, referred her to spine Ordered xrays of neck today Pt annoyed that she has to go have more imaging done/ see other specialists which is understandable, but her emg was normal and her previous carpal tunnel surgery she had 10 years ago never worked so may not be carpal tunnel that is causing her symptoms. Discussed in detail may need MRI of spinebut will get xrays, see garnishment specialist and follow up accordingly. Patient aware and in agreement of plan. All questions answered. Jennifer Lucas D.O. M.P.H. documented in this encounterShelby [facility]08-03-2023 Miscellaneous Notes* Telephone Encounter - Alisia Bravo LPN - 11/08/2022 2:46 PM EDT Patient has been identified by name and date of : No Patient phones for refill(s): Requested Prescriptions Pending Prescriptions Disp Refills losartan (COZAAR) 25 mg tablet 30 tablet 1 Sig: Take 1 tablet by mouth once daily. Date of last office visit in primary care: 09/20/22 Last 2 Encounter Wt Readings: Date: Wt: 09/20/2022 93.4 kg (206 lb) 09/10/2022 89.8 kg (198 lb) Previous labs/tests for medication: Blood Pressure: BUN (mg/dL) Date Value 09/27/2022 11 04/26/2021 14 Sodium (mmol/L) Date Value 09/27/2022 140 04/26/2021 140 Last 1 Encounter BP Readings: Date: BP: 09/20/2022 142/96 Please advise. Thank you. Alisia Bravo LPN documented in this encounterShelby [facility]08-01-2023 Miscellaneous Notes* Telephone Encounter - Alisia Bravo LPN - 11/06/2022 7:33 AM EDT Patient has been identified by name and date of : No Patient phones for refill(s): Requested Prescriptions Pending Prescriptions Disp Refills losartan (COZAAR) 25 mg tablet 30 tablet 1 Sig: Take 1 tablet by mouth once daily. Date of last office visit in primary care: 09/20/22 Last 2 Encounter Wt Readings: Date: Wt: 09/20/2022 93.4 kg (206 lb) 09/10/2022 89.8 kg (198 lb) Previous labs/tests for medication: Blood Pressure: BUN (mg/dL) Date Value 09/27/2022 11 04/26/2021 14 Sodium (mmol/L) Date Value 09/27/2022 140 04/26/2021 140 Last 1 Encounter BP Readings: Date: BP: 09/20/2022 142/96 Please advise. Thank you. Alsiia Bravo LPN documented in this encounterShelby [facility]07-26-2023 Miscellaneous Notes* Telephone Encounter - Libia Queen Ma - 10/31/2022 1:45 PM EDT Letter is ready for supervisor opening and picking in Medical Records. * Telephone Encounter - Eliana Curtis APRN.CNP - 10/31/2022 1:28 PM EDT This has been printed. Please let patient know. Thank you Eliana Curtis APRN.GERHARD documented in this encounterShelby [facility]07-17-2023 History of Present illness Narrative* Lashay Lara PT - 10/22/2022 8:41 AM EDT Episode Visit Count: 6 Therapist That Will Accept/Oversee The Plan Of Care: Lashay Lara Start of Care Date: 09/18/22 Onset Date: 08/13/22 Plan of Care Certification Date: 09/18/22 Next Certification Due Date: 10/23/22 [facility] PHYSICAL THERAPY DISCONTINUANCE OF CARE PLAN OF CARE UPDATE: Assessment: Gilma Garcia is discontinued from Physical Therapy services due to Patient/Clientdeclining further intervention.. Patient was seen for 6 visits from Start of Care Date: 09/18/22 to10/22/2022 and treatment included: Therapeutic exercise, Manual therapy, and Self-senior living management. Goals for Episode of Care: created on 09/18/22 through 10/30/22 Goals updated on 10/22/2022. [place] in home exercise program. -- MET Patient will decrease pain rating by 2 points to meet minimal clinical important difference for numeric pain rating scale. -- MET Patient will increase active ROM of right shoulder flexion and abduction to to 170 degrees to allow pt to to improve performance of ADLs. -- MET Patient will demonstrate increase in L shoulder IR, ER, abd, flexion, strength to 4/5 during manual muscle testing in order to improve function for prior functional tasks. -- MET Patient will increase flexibility of right upper trapezius to WNL to decrease pain. -- MET Sleep 6- 8 hours without interruption due to right shoulder pain with decreased report of symptoms/pain in 6 weeks. -- PARTIALLY MET, but limited due to n/t of the wristand poor air quality Patient Goals: ADLs with less shoulder pain -- MET SUBJECTIVE: Patient Reason for Visit: Pt. reports 95% improvement. I'm not in no pain today. Pt. states I think that Dogsterel Sent[place] worked.. Patient Goals: ADLs with less shoulder pain Pain: Pain Pain Level: 0 Pain Location: Shoulder - Right Description: Sore Frequency: At rest, With movement Post Treatment Pain Post Treatment Pain Level: 0 Post Treatment Pain Location: Shoulder - Right, Neck - Right PROMIS Scales Higher is Better 10/19/2022 09/18/2022 11/18/2021 Phys Func - Score 48 (within normal limits) 41 (mild dysfunction) 46 (within normal limits) Phys Func - Percentile 42 % 18 % 34 % Self-Eff Symptom - Score 49 (Average) 39 (Low) 39 (Low) Self-Eff Symptom - Percentile 46 % 14 % 14 % T-scores: mean of general population = 50. 5 points is clinically meaningfully difference Percentiles provide an indication of how the patient's score ranks in relation to the general population. Higher percentile rankings indicate better function/quality of life. 50th percentile is the average of the general population and indicates half of respondents had a worse score. OBJECTIVE MEASURES WITH LEVEL OF FUNCTION: Cervical Spine ROM Cervical Protrusion AROM: Normal Cervical Retraction AROM: Normal Cervical Flexion AROM: Normal Cervical Extension AROM: Normal Cervical Side-Bend Right AROM: Normal Cervical Side-Bend Left AROM: Normal Cervical Rotation Right AROM: Normal Cervical Rotation Left AROM: Normal UE AROM R Shoulder Flex: 180 Degrees R Shoulder ABduction: 180 Degrees R Shoulder Internal Rotation (Functional): L1 R Shoulder External Rotation (Functional): T1 L Shoulder Flex: 180 Degrees L Shoulder ABduction: 180 Degrees L Shoulder Internal Rotation (Functional): L PSIS with discomfort L Shoulder External Rotation (Functional): T1 UE Flexibility R Upper Trapezius Flexibilty Comments: WNL L Upper Trapezius Flexibility Comments: WNL UE and Cervical Strength Strength Tested: Shoulder All R Shoulder Extension: 5/5 R Shoulder Flexion: 4+/5 R Shoulder Abduction (C5): 4/5 R Shoulder Internal Rotation: 4+/5 R Shoulder External Rotation: 4/5 TREATMENT: Therapeutic Exercise: 1: seated UE erg 2 min fwd/2 min reverse 0 resistance 1:1 throughout and PT discussed suggestion todiscuss concerns of vertigo with her PCP 2: cervical flexion, extension, SF R, SF L, Rotation R and L, protraction, retraction 1x each 3: seated scapular squeezes 2x10 4: seated wrist extensor stretch 3x30 sec each side 5: seated cervical retraction 2x10 6: seated phalen's stretch 3x30 sec 7: R scapular isometrics at wall flexion, extension, abd, add, IR, and ER 3 sets of 10 sec hold -- twice daily (denies pain throughout) Skilled Intervention: Patient was educated in proper exercise technique and purpose for exercises. Reviewed and educated patient on additions/changes for home exercise program as above (*). Skilled judgment was provided in selection of appropriate interventions. Correct performance of therapeutic exercises was facilitated with verbal, visual, and tactile cuing. Educated patient on rationale for performing exercises in regards to decreasing fatigue , increase ease of ADL, and ROM and function . Patient education as noted. Billing Therapeutic Exercise Treatment Minutes: 40 Total Treatment Time Minutes (timed/untimed): 40 Lashay Lara PT [facility] History of Present illness Narrative* Lashay Lara, PT - 10/15/2022 8:44 AM EDT Episode Visit Count: 5 Therapist That Will Accept/Oversee The Plan Of Care: Lashay Lara Start of Care Date: 09/18/22 Onset Date: 08/13/22 Plan of Care Certification Date: 09/18/22 Next Certification Due Date: 10/23/22 REHABILITATION AND SPORTS THERAPY PHYSICAL THERAPY TREATMENT NOTE ASSESSMENT: Gilma Garcia tolerated the session with increased symptoms and expected muscle soreness. She demonstrated improvements in shoulder pain intensity level following isometrics using wand and the wall. HEP was modified to reducing frequency of elastic band resistance scapular exercises to once daily and adding isometrics to twice daily in order to reduce soreness intensity. The patient will continue to benefit from ongoing skilled physical therapy to progress toward set goals. Planned Treatment Interventions: Neuromuscular re-education (58158), Manual therapy (98421), Therapeutic exercise (67717), Therapeutic activities (75726), Self-senior living management (51586), Patient/Family/Caregiver Education PLAN FOR NEXT VISIT: PN -- assess symptom response to changing elastic band exercises to once daily and adding scapular wall isometrics twice daily to HEP SUBJECTIVE: Patient Reason for Visit: Pt. did the band exercises 3 sets of 15. She states that sheover did it due to much soreness today. She has increased radial wrist pain. She didn't get much sleep last night due to B wrist tingling. She is seeing Shayy today for B wrists. Patient Goals: ADLs with less shoulder pain Functional Limitations: reaching behind back, use hand with arm at shoulder level, reaching overhead, sleeping Pain: Pain Pain Level: 8 Pain Location: Shoulder - Right Description: Sore Frequency: At rest Post Treatment Pain Post Treatment Pain Level: 5 Post Treatment Pain Location: Shoulder - Right, Neck - Right OBJECTIVE MEASURES WITH LEVEL OF FUNCTION: TREATMENT: Therapeutic Exercise: 1: seated UE erg 2 min fwd/2 min reverse 0 resistance 1:1 throughout and subjective collected (cuesto avoid wrist movement - this reduced wrist symptoms) 2: seated wand B shoulder ER isometric hold 5x10 sec (reduced pain to 6/10) 3: seated wand B shoulder IR isometric hold 5x10 sec (reduced pain to 6/10) 4: seated wrist extensor stretch 3x30 sec each side 5: seated phalen's stretch 3x30 sec 6: reduce theraband mid rows and shoulder extension to once daily 7: *scapular isometrics at wall flexion, extension, abd, add, IR, and ER 3 sets of 10 sec hold -- twice daily (reduced pain to 5/10) Skilled Intervention: Patient was educated in proper exercise technique and purpose for exercises. Reviewed and educated patient on additions/changes for home exercise program as above (*). Skilled judgment was provided in selection of appropriate interventions. Provided written instruction for home exercise program to facilitate proper performance and compliance. Correct performance of therapeutic exercises was facilitated with verbal and visual cuing. Educated patient on rationale for performing exercises in regards to decreasing fatigue , increase ease of ADL, and ROM and function . Patient education as noted. Billing Therapeutic Exercise Treatment Minutes: 40 Total Treatment Time Minutes (timed/untimed): 40 Lashay Lara PT documented [facility] History of Present illness Narrative* Lashay Lara PT - 10/02/2022 11:15 AM EDT Episode Visit Count: 3 Therapist That Will Accept/Oversee The Plan Of Care: Lashay Lara Start of Care Date: 09/18/22 Onset Date: 08/13/22 Plan of Care Certification Date: 09/18/22 Next Certification Due Date: 10/23/22 REHABILITATION AND SPORTS THERAPY PHYSICAL THERAPY TREATMENT NOTE ASSESSMENT: Gilma Garcia tolerated the session with increased symptoms. She demonstrated improvements in right shoulder symptoms following scapular stabilization strengthening with green elastic band mid rows and B shoulder extension. The patient will continue to benefit from ongoing skilled physical therapy to progress toward set goals. PLAN FOR NEXT VISIT: Scapular IR and ER stabilization strengthening with theraband SUBJECTIVE: Patient Reason for Visit: HEP is going well. R shoulder feels a little better followingcompletion of the HEP. Pain: Pain Pain Level: 6 Pain Location: Shoulder - Right Description: Aching Frequency: At rest Post Treatment Pain Post Treatment Pain Level: 5 Post Treatment Pain Location: Shoulder - Right, Neck - Right OBJECTIVE MEASURES WITH LEVEL OF FUNCTION: TREATMENT: Therapeutic Exercise: 1: supine cervical retraction, with towel roll at occiput 4x10 (reports reduced shoulder pain, centralizes to the superior R scapula) 2: ollie with tactule cues for scapulohumeral rhythm, and to avoid R shoulder elevation 2x10, dc due to difficulty completing without tactile cues 3: seated R shoulder ER with wand at 0 abd 2x10 (tactile cues to avoid scapular shrugging and protraction) 4: *GTB mid rows 2x15, twice daily (max cues for correct technique, but reported reduced symptoms following 3 sets) 5: *GTB B shoulder extension 3x12, twice daily (also reports reduced symptoms following 3 sets) 6: seated thoracic spine extension, crossed arms 3x10 (cuesto avoid cervical spine extension) 7: B scapular circles forward and reverse without cervical spine protraction 2x10 each direction Skilled Intervention: Patient was educated in proper exercise technique and purpose for exercises. Skilled judgment was provided in selection of appropriate interventions. Provided written instruction for home exercise program to facilitate proper performance and compliance. Correct performance of therapeutic exercises was facilitated with verbal, visual, and tactile cuing. Educated patient on rationale for performing exercises in regards to decreasing fatigue , increase ease of ADL, and ROM and function . Patient education as noted. Billing Therapeutic Exercise Treatment Minutes: 40 Total Treatment Time Minutes (timed/untimed): 40 Lashay Lara PT documented in this encounterS[facility]06[facility]23 Miscellaneous Notes* Telephone Encounter - Alisia Bravo LPN - 09/28/2022 2:07 PM EDT Patient notified. Alisia Bravo LPN * Telephone Encounter - Eliana Curtis APRN.GERHARD - 09/28/2022 12:42 PM EDT Continue with current medications and can be further discussed at upcoming appointment with Lavonne. Thank you Eliana Curtis APRN.GERHARD * Telephone Encounter - Annabelle Nickerson LPN - 09/28/2022 9:25 AM EDT Pt called in to let you know she was able to see results of lab work done on 09/27/22. She could seeher potassium was 4.0 . Pt is taking a blood pressure pill that has potassium and also taking Vit Dand she is doing well. Pt reports she has more energy. Please advise if pt needs to do anything different. Annabelle Nickerson LPN documented in this encounterS[facility]06[facility] History of Present illness Narrative* Lashay Lara, PT - 09/28/2022 7:55 AM EDT Episode Visit Count: 2 Therapist That Will Accept/Oversee The Plan Of Care: Lashay Lara Start of Care Date: 09/18/22 Onset Date: 08/13/22 Plan of Care Certification Date: 09/18/22 Next Certification Due Date: 10/23/22 REHABILITATION AND SPORTS THERAPY PHYSICAL THERAPY TREATMENT NOTE ASSESSMENT: Gilma Garcia tolerated the session with increased symptoms and expected muscle soreness. She demonstrated difficulty with tolerating manual traction as well as PROM of the cervical spine. She has full PROM of the cervical spine grossly, but with increased neck symptoms. She has centralized shoulder pain when laying supine, but symptoms in the shoulder are reproduced with supine cervical chin tuck with active shoulder elevation. Cervical chin tucks are better tolerated when supine as compared to seated. HEP was modified. The patient will continue to benefit from ongoing skilled physical therapy . Current Frequency: 1x/week PLAN FOR NEXT VISIT: Shoulder AAROM with ollie. Continue progressing cervical retraction SUBJECTIVE: Patient Reason for Visit: Pt. reports that she think she did too many exercises and toomany cleaning/carrying activities. Her neck feels as though she got whiplash. She took aleve beforethis visit at :30. Patient Goals: ADLs with less shoulder pain Functional Limitations: reaching behind back, use hand with arm at shoulder level, reaching overhead, sleeping Pain: Pain Pain Level: 8 Pain Location: Shoulder - Right Description: Aching, Sharp Frequency: At rest Post Treatment Pain Post Treatment Pain Location: Shoulder - Right, Neck - Right OBJECTIVE MEASURES WITH LEVEL OF FUNCTION: UE and Cervical Strength Strength Tested: Cervical Deep Neck Flexor Endurance: 7 TREATMENT: Therapeutic Exercise: 1: seated cervical retraction 2x10 2: *supine cervical retraction, without towel roll 4x10 -- not throbbing like it was just soreness 11/15 following this exercise (*HEP seated version modified to supine this visit) 3: deep cervical neck flexor hold 7 sec, x 5 attempts 4: *supine cervical chin retraction with hold, 5x10 sec 5: seated scapular squeezes 2 sets of 10-15 6: *seated thoracic spine extension, crossed arms 3x10 (maybe a little better.) Skilled Intervention: Patient was educated in proper exercise technique and purpose for exercises. Skilled judgment was provided in selection of appropriate interventions. Provided written instruction for home exercise program to facilitate proper performance and compliance. Correct performance of therapeutic exercises was facilitated with verbal and visual cuing. Educated patient on rationale for performing exercises in regards to decreasing fatigue , increase ease of ADL, and ROM and function . Patient education as noted. Manual Therapy: 1: PROM rotation, side flexion to each side 1x, worse each direction, full PROM Manual Traction: attempted, pt. reports it feels worse x30 sec Skilled Intervention: Manual skills to improve joint mobility, ROM, and decrease pain. Utilized anatomy knowledge of the therapist, and assessment of patient's response to intervention. Billing Therapeutic Exercise Treatment Minutes: 35 Manual TherapyTreatment Minutes: 5 Total Treatment Time Minutes (timed/untimed): 40 Lashay Lara PT documented in this encounterS[facility]06-[facility] History of Present illness Narrative* Eliana Curtis, ACCOUNT ADVISOR.FIRE TENDER - 09/20/2022 7:24 AM EDT CC: Patient presents with: Recheck: R shoulder follow up HPI Gilma Rebecca Garcia is a 52 year old female who presents today for routine follow up. Started her potassium supplement recently and will get it rechecked later this month. HTN: Ms. Garcia indicates that she is feeling well and denies any symptoms referable to elevated blood pressure. Specifically denies headache, chest pain, palpitations, dyspnea, and peripheral edema. Patient denies any side effects of her medication(s) and is compliant with their regimen except has not taken yet this morning. She does check BP's away from this office with average BP's in the 120s/70s range. Last 3 Encounter BP Readings: Date: BP: 09/20/2022 142/96 09/10/2022 126/80 09/06/2022 128/80 Did not tolerate lisinopril as she felt like it made her cough, and amlodipine resulted in swelling. Has taken losartan many years ago but does not remember why this was stopped. Would like to try a non diuretic so she does not have to take a potassium supplement. Seen previously for right shoulder pain post fall. Just started physical therapy for her right shoulder pain. Is currently on light duty but would like to stay on this until therapy is completed to allow for her shoulder to heal. No new concerns or complaints. REVIEW OF SYSTEMS General: no fevers, no chills, no night sweats, no recurrent infections, no change in appetite, andno significant changes in weight Respiratory: no cough, no wheezing, no shortness of breath, no hemoptysis Cardiovascular: no chest pain, no chest pressure, no palpitations, and no swelling Neurologic: No headache, weakness, numbness, tingling, dizziness, memory loss, syncope. PAST MEDICAL HISTORY Diagnosis Date Acute cholecystitis Chronic low back pain HTN (hypertension) PAST SURGICAL HISTORY Procedure Laterality Date LAPAROSCOPY SURG CHOLECYSTECTOMY 05/23/2015 TONSILLECTOMY PRIMARY/SECONDARY <AGE 11 Tonsillectomy TUBAL LIGATION HX 1993 VAGINAL HYSTERECTOMY UTERUS 250 GM/< 2015 ALLERGIES Mobic [Meloxicam], Naproxen, Prednisone, Tylenol #3 [Codeine], and Vicodin [Hydrocodone-Acetaminophen] MEDICATIONS chlorthalidone (HYGROTON) 25 mg tablet Take 1 tablet by mouth once daily. potassium chloride (K-TAB) 10 mEq tablet Take 1 tablet by mouth daily with breakfast. ergocalciferol 50,000 unit capsule (VITAMIN D2, DRISDOL) Take 1 capsule by mouth two times a week. TO BE TAKEN ORALLY DIRECTED. Take 1 tablet by mouth twice weekly c8ulpws, then decrease to 1 tablet weekly. ibuprofen (MOTRIN) 800 mg tablet Take 1 tablet by mouth every 8 hours as needed for pain. Take withfood. metoprolol succinate ER (TOPROL XL) 100 mg Take 1 tablet by mouth once daily. FAMILY HISTORY Problem Relation Age of Onset Hypertension Mother Hypertension Father Coronary Artery Disease Mother Coronary Artery Disease Father Cancer Mother Breast Cancer Father Lung Social History Tobacco Use Smoking status: Never Smokeless tobacco: Never Substance Use Topics Alcohol use: No Drug use: No PHYSICAL EXAM BP 142/96 Pulse 68 Resp 16 Wt 93.4 kg (206 lb) LMP 09/26/2014 (Exact Date) BMI 36.49 kg/m General Appearance: well appearing, in no acute distress, alert Lungs: Lungs clear to auscultation. No wheezing, rhonchi, rales. Heart: RRR without murmur, gallop, or rubs. No ectopy Health maintenance reviewed with patient: HEPATITIS B(1 of 3 - 3-dose series) Never done HIV SCREENING Never done BP CONTROLLED (<130/80) Never done COLORECTAL CANCER SCREENING Never done DTAP,TDAP,TD(2 - Td or Tdap) due on 03/19/2023 SHINGRIX VACCINE(1 of 2) due on 03/19/2023 COVID-19 VACCINE(3 - Booster for Pfizer series) due on 03/19/2023 INFLUENZA(Season Ended) due on 12/07/2022 MAMMOGRAM due on 02/06/2023 ANNUAL PCP TEAM CHRONIC DISEASE VISIT due on 09/11/2023 DIABETES SCREEN due on 09/06/2025 LIPID SCREEN due on 04/26/2026 DEPRESSION ASSESSMENT Completed HEPATITIS C SCREENING Completed PAP TESTING Discontinued HPV TESTING Discontinued DATA REVIEWED: Most recent labs ASSESSMENT/PLAN: 1. Essential hypertension, benign - ICD9: 401.1, ICD10: I10 (primary diagnosis) - Controlled but with the potassium concern will hold chlorthalidone and start losartan - follow up in 2 weeks - Recommend home blood pressure monitoring, to bring results to next visit - Encouraged sodium restriction, DASH or Mediterranean diet - Recommend regular aerobic exercise 2. Acute pain of right shoulder - ICD9: 719.41, ICD10: M25.511 - continue with current treatment. - letter for light duty written and signed and given to patient. Prescription instructions reviewed with patient as applicable. Potential red flag symptoms discussed with the patient. Reviewed appropriate action plan to take if red flag symptoms occur. Patient agreeable to treatment plan. Eliana Curtis APRN.GERHARD documented in this encounterS[facility]06-06-2023 Miscellaneous Notes* Telephone Encounter - Julita Collins MD - 09/11/2022 8:12 AM EDT This was addressed at another visit * Telephone Encounter - Nicky Gandara LPN - 09/07/2022 10:46 AM EDT Patient calling asking for her EMG results, done today. Aware PCP is out of office today. Please advise documented in this encounterShel[facility]06-[facility]-2023 History of Present illness Narrative* Julita Collins MD - 09/10/2022 11:30 AM EDT Reason for Visit Patient presents with: Follow Up: discuss test results-emg Gilma Garcia is a 52 year old female who presents here today for Above Complaints.. Health Maintenance HEPATITIS B(1 of 3 - 3-dose series) HIV SCREENING BP CONTROLLED (<130/80) COLORECTAL CANCER SCREENING HPI Patient has been having symptoms of tingling in the fingers and up and down her arms. Her wrist wasweak, she would drop her parts on the table, over the past 2 months. Has b/l wrist pain when she tries to use her wrists. Currently she has more symptoms at night, it feels like she has a pinched nerve going up and down her arms. Has been taking tylenol for carpal tunnel. She had carpal tunnel surgery in the past, both the sides. In 1999 she had similar symptoms as thisat which time she had surgery and instantly she did better. Surgery was done in sixes. Patient does not think they did both, only did the one. She did much better after surgery Notes that she cannot stand the dropping of stuff. She is using the wrist brace on a daily basis. She was advised to see Dr Tan. No problem-specific Assessment & Plan notes found for this encounter. PAST MEDICAL HISTORY Diagnosis Date Acute cholecystitis Chronic low back pain HTN (hypertension) PAST SURGICAL HISTORY Procedure Laterality Date LAPAROSCOPY SURG CHOLECYSTECTOMY 05/23/2015 TONSILLECTOMY PRIMARY/SECONDARY <AGE 11 Tonsillectomy TUBAL LIGATION HX 1993 VAGINAL HYSTERECTOMY UTERUS 250 GM/< 2015 FAMILY HISTORY Problem Relation Age of Onset Hypertension Mother Hypertension Father Coronary Artery Disease Mother Coronary Artery Disease Father Cancer Mother Breast Cancer Father Lung Social History Tobacco Use Smoking status: Never Smokeless tobacco: Never Substance Use Topics Alcohol use: No Drug use: No Past medical history, appointments, medications, allergies reviewed. Pertinent Lab/Diagnostic Studies are reviewed and discussed today Current Outpatient Medications: cyclobenzaprine (FLEXERIL) 5 mg tablet ibuprofen (MOTRIN) 800 mg tablet ergocalciferol 50,000 unit capsule (VITAMIN D2, DRISDOL) potassium chloride (K-TAB) 10 mEq tablet metoprolol succinate ER (TOPROL XL) 100 mg chlorthalidone (HYGROTON) 25 mg tablet lidocaine (LIDODERM) 5 % FLUoxetine (PROZAC) 10 mg capsule Review of Systems CONSTITUTIONAL: No fevers, chills night sweats, unintended weight loss CARDIOVASCULAR: No chest pain, dyspnea, palpitations, orthopnea, PND, ankle edema. PULM: No dyspnea, unexplained cough. GI: No dysphagia/odynophagia, problematic reflux, constipation, diarrhea, changes in stool habits, hematochezia, melena. : No new urinary complaints, including dysuria, gross hematuria or pyuria. NEURO: No new balance problems, peripheral weakness/paresthesias or numbness of concern. Physical Exam BP 126/80 (BP Site: Left Arm, BP Position: Sitting, BP Cuff Size: Large Adult) Pulse 64 Temp 36.3 C (97.3 F) Resp 12 Ht 160 cm (5' 3) Wt 89.8 kg (198 lb) LMP 09/26/2014 (Exact Date) SpO2 97% BMI 35.07 kg/m General appearance: Well appearing, alert, in no acute distress, well nourished. Skin: Skin color, texture, turgor normal, no suspicious rashes or lesions Head: Normocephalic, no masses, lesions, tenderness or abnormalities Eyes: Anicteric sclera. Pupils are equally round and reactive to light. Extraocular movements are intact. Lungs: Lungs clear to auscultation. No wheezing, rhonchi, rales Heart: RRR without murmur, gallop, or rubs. Tinels and phallens tests are both positive, she has tingling and numbness in the area of medial neuropathy thumb, 1st and second fingers b/l. ASSESSMENT/PLAN: 1. Carpal tunnel syndrome on both sides - ICD9: 354.0, ICD10: G56.03 (primary diagnosis) She needs to see Ortho - CONSULT TO ORTHOPAEDICS 2. Essential hypertension, benign - ICD9: 401.1, ICD10: I10 - Controlled - Recommend home blood pressure monitoring, to bring results to next visit - Encouraged sodium restriction, DASH or Mediterranean diet - Recommend regular aerobic exercise 3. Hypokalemia - ICD9: 276.8, ICD10: E87.6 Stop the chlorthalidone as it is giving her hypokalemia and she is not able to take large medications and would find it very difficult to take 4. Vitamin D deficiency - ICD9: 268.9, ICD10: E55.9 We given replacement doses because her vitamin D levels are very low Julita Collins MD documented in this encounterShelby [facility]06-02-2023 Miscellaneous Notes* Telephone Encounter - Libia Queen Ma - 09/07/2022 4:12 PM EDT Patient notified. Patient states she did not have Ins when ordered but now she does and will start medications. * Telephone Encounter - Eliana Curtis APRN.GERHARD - 09/07/2022 3:56 PM EDT Potassium is still low. She needs to restart supplement, take with food and disintegrate tablet in small amount of liquid to see if it is better tolerated. Recheck level in 2 weeks. Vit D is still low, is she taking the prescription as ordered? Thank you Eliana Curtis APRN.CNP documented in this encounterShelby [facility]06-02-2023 History of Present illness Narrative* Andrew Mayorga DO - 09/07/2022 9:08 AM EDT UNIVERSAL PROTOCOL / SAFETY CHECKLIST Procedure to be Performed: EMG Sign In: A Moment of CARE was completed. Personnel directly involved with the procedure wore the appropriate PPE (Personal Protective Equipment). Patient/Surrogate Stated/Verified: PATIENT VERIFIED(optional for EMERGENT procedures): Patient name, Date of , Relevant allergies, and The intended procedure Time Out Communication: Intended patient and procedure match the source documents. Correct side/site marked and visible. Sign Out: SIGN OUT (optional for EMERGENT procedures): Post-procedure follow-up management communicated and Plan of Care Visit completed when applicable. GAYLA Morton DO documented in this encounterShelby [facility]06-01-2023 Instructions* Patient Instructions* Eliana Curtis APRN.CNP - 09/06/2022 8:53 AM EDT Start taking the prescription ibuprofen with food every 8 hours for the next 3-4 days than every 8 hours as needed. documented in this encounterShelby [facility]06-01-2023 History of Present illness Narrative* Eliana Curtis APRN.CNP - 09/06/2022 8:36 AM EDT CC: Patient presents with: Shoulder Injury: R shoulder injury from fall, seen in ER 08/13 HPI Gilma Garcia is a 52 year old female who presents today for ER follow-up. Facility: [facility] ER Date of visit: 08/13/22 Reason for visit: mechanical fall hitting her head and right shoulder. Hospital course: CT of brain negative for acute concern. Right shoulder xray negative for fracture or dislocation Diagnosis: concussion and probable joint contusion or right shoulder. Discharge: no orders, told to take tylenol Current symptoms: Pain is still and ache and can be sharp to right shoulder with decreased ROM. Canbe up to 9/10. Tylenol is not helpful. Has ibuprofen at home but not taken since accident. Denies fever chills, edema, redness, numbness, weakness, No further dizziness, nausea, vomiting, headaches, or vision changes since a few days post fall. Needs a note for work to excuse the days missed related to fall and concussion. Hypokalemia noted in lab work on June. Has not taken the potassium supplement as it makes her naueated and has not had rechecked. REVIEW OF SYSTEMS General: no fevers, no chills, no night sweats, no recurrent infections, no change in appetite, no change in energy, and no significant changes in weight Respiratory: no cough, no wheezing, no shortness of breath, no hemoptysis Cardiovascular: no chest pain, no chest pressure, no palpitations, and no swelling Neurologic: No headache, weakness, numbness, tingling, dizziness, memory loss, syncope. PAST MEDICAL HISTORY Diagnosis Date Acute cholecystitis Chronic low back pain HTN (hypertension) PAST SURGICAL HISTORY Procedure Laterality Date LAPAROSCOPY SURG CHOLECYSTECTOMY 05/23/2015 TONSILLECTOMY PRIMARY/SECONDARY <AGE 11 Tonsillectomy TUBAL LIGATION HX 1993 VAGINAL HYSTERECTOMY UTERUS 250 GM/< 2015 ALLERGIES Mobic [Meloxicam], Naproxen, Prednisone, Tylenol #3 [Codeine], and Vicodin [Hydrocodone-Acetaminophen] MEDICATIONS ibuprofen (MOTRIN) 800 mg tablet Take 1 tablet by mouth every 8 hours as needed for pain. Take withfood. ergocalciferol 50,000 unit capsule (VITAMIN D2, DRISDOL) Take 1 capsule by mouth two times a week. TO BE TAKEN ORALLY DIRECTED. Take 1 tablet by mouth twice weekly [id number], then decrease to 1 tablet weekly. potassium chloride (K-TAB) 10 mEq tablet Take 1 tablet by mouth daily with breakfast. metoprolol succinate ER (TOPROL XL) 100 mg Take 1 tablet by mouth once daily. chlorthalidone (HYGROTON) 25 mg tablet Take 1 tablet by mouth once daily. cyclobenzaprine (FLEXERIL) 5 mg tablet Take 1 tablet by mouth three times daily. lidocaine (LIDODERM) 5 % Apply 1 Patch as directed every 24 hours. Apply patch for 12 hours then remove and leave off for 12 hours prior to applying a new patch. Location: to right ribs FLUoxetine (PROZAC) 10 mg capsule Take 1 capsule by mouth once daily. FAMILY HISTORY Problem Relation Age of Onset Hypertension Mother Hypertension Father Coronary Artery Disease Mother Coronary Artery Disease Father Cancer Mother Breast Cancer Father Lung Social History Tobacco Use Smoking status: Never Smokeless tobacco: Never Substance Use Topics Alcohol use: No Drug use: No PHYSICAL EXAM BP 128/80 Pulse 80 Resp 16 Wt 91.6 kg (202 lb) LMP 09/26/2014 (Exact Date) BMI 35.78 kg/m General Appearance: well appearing, in no acute distress, alert Skin: Skin color, texture, turgor normal for age; Eyes: PERRLA, conjunctiva pink and moist, no icterus, sclera white, non-injected Lungs: Lungs clear to auscultation. No wheezing, rhonchi, rales. Heart: RRR without murmur, gallop, or rubs. No ectopy Neck: Inspection: normal Palpation: nontender ROM: full Musculoskeletal: Right shoulder: normal to inspection. Reported tenderness with palpation of deltoid, biceps tendon, and joint cavity. ROM: full but painful with external rotation and extension. Special tests: Drop arm: -, Empty Can: -, Infraspinatus: -, Newton:-, Neer - Upper extremities: reflexes: +2 to bilateral U/L extremities.. Muscle strength: 5/5 upper, bilaterally HEPATITIS B(1 of 3 - 3-dose series) Never done HIV SCREENING Never done COLORECTAL CANCER SCREENING Never done DTAP,TDAP,TD(2 - Td or Tdap) due on 03/19/2023 SHINGRIX VACCINE(1 of 2) due on 03/19/2023 COVID-19 VACCINE(3 - Booster for Pfizer series) due on 03/19/2023 INFLUENZA(Season Ended) due on 12/07/2022 MAMMOGRAM due on 02/06/2023 ANNUAL PCP TEAM CHRONIC DISEASE VISIT due on 08/04/2023 BP CONTROLLED (<130/80) due on 08/04/2023 DIABETES SCREEN due on 06/08/2025 LIPID SCREEN due on 04/26/2026 DEPRESSION ASSESSMENT Completed HEPATITIS C SCREENING Completed PAP TESTING Discontinued HPV TESTING Discontinued DATA REVIEWED: Outside chart from [facility] reviewed. ASSESSMENT/PLAN: 1. Fall, subsequent encounter - ICD9: V58.89, E888.9, ICD10: W19.XXXD (primary diagnosis) Mechanical fall, not result of weakness dizziness or syncope - concussion symptoms fully resolved - still with no improvement in shoulder pain. - will have her start her prescription ibuprofen, discussed usage of ice for pain, flexeril as ordered (discussed no driving or operating heavy machinerywhile taking this medication), and will start physical therapy. 2. Acute pain of right shoulder - ICD9: 719.41, ICD10: M25.511 See above - no sign of weakness or decreased ROM, probable tendonitis and muscle strain. - CONSULT TO PHYSICAL THERAPY 3. Concussion without loss of consciousness, subsequent encounter - ICD9: V58.89, 850.0, ICD10: S06.0X0D Resolved, see #1 4. Hypokalemia - ICD9: 276.8, ICD10: E87.6 Needs rechecked to see if supplement still is needed - BASIC METABOLIC PNL Prescription instructions reviewed with patient as applicable. Potential red flag symptoms discussed with the patient. Reviewed appropriate action plan to take if red flag symptoms occur. Patient agreeable to treatment plan. Eliana Curtis APRN.CNP documented in this encounterS[facility]05-10-2023 Miscellaneous Notes* Telephone Encounter - Milton Mchugh Ma - 08/15/2022 10:22 AM EDT SHREE: 08/03/2022 Last refill: 05/16/2022 QTY: 30 Refills: 0 documented in this encounterShelby [facility]03-03-2023 History of Present illness Narrative* Julita Collins MD - 06/08/2022 1:08 PM EST Reason for Visit Patient presents with: Same Day Appointment: rib pain right side x 1 month Gilma Garcia is a 51 year old female who presents here today for Above Complaints.. Health Maintenance HEPATITIS B(1 of 3 - 3-dose series) HIV SCREENING BP CONTROLLED (<130/80) COLORECTAL CANCER SCREENING DEPRESSION ASSESSMENT HPI Has been having rib pain for the past month or more, patient ws lifting heavy boxes when she noticed the pain, she had xrs Which did not show any bony pathology. The pain is in the right upper quadrant, and it does not move on the other side but it stays right in the flank area. She has not had Physical Therapy. She was put on light duty and she felt it started to heal but after she went back to heavy duty she started having pain again. 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 HTN: Compliant with medications. Denies any chest pain, palpitations, or edema. No SOB. Doesn't check BP at home generally. Careful with diet to avoid salt, trying to eat more fruits and vegetables, exercises regularly. She is on chlorthalidone and needs her labs Depression Screening 09/03/2017 07/06/2020 03/19/2022 06/08/2022 PHQ-2 Score 1 0 0 0 Depression screening tool completed and reviewed. Based on score and interview, patient is not at risk for depression. Screening tool discussed with patient, and I recommended no further interventionat this time. No problem-specific Assessment & Plan notes found for this encounter. PAST MEDICAL HISTORY Diagnosis Date Acute cholecystitis Chronic low back pain HTN (hypertension) PAST SURGICAL HISTORY Procedure Laterality Date LAPAROSCOPY SURG CHOLECYSTECTOMY 05/23/2015 TONSILLECTOMY PRIMARY/SECONDARY <AGE 11 Tonsillectomy TUBAL LIGATION HX 1993 VAGINAL HYSTERECTOMY UTERUS 250 GM/< 2015 FAMILY HISTORY Problem Relation Age of Onset Hypertension Mother Hypertension Father Coronary Artery Disease Mother Coronary Artery Disease Father Cancer Mother Breast Cancer Father Lung Social History Tobacco Use Smoking status: Never Smokeless tobacco: Never Substance Use Topics Alcohol use: No Drug use: No Past medical history, appointments, medications, allergies reviewed. Pertinent Lab/Diagnostic Studies are reviewed and discussed today Current Outpatient Medications: metoprolol succinate ER (TOPROL XL) 100 mg chlorthalidone (HYGROTON) 25 mg tablet cyclobenzaprine (FLEXERIL) 5 mg tablet ibuprofen (MOTRIN) 800 mg tablet lidocaine (LIDODERM) 5 % FLUoxetine (PROZAC) 10 mg capsule Review of Systems CONSTITUTIONAL: No fevers, chills night sweats, unintended weight loss CARDIOVASCULAR: No chest pain, dyspnea, palpitations, orthopnea, PND, ankle edema. PULM: No dyspnea, unexplained cough. GI: No dysphagia/odynophagia, problematic reflux, constipation, diarrhea, changes in stool habits, hematochezia, melena. : No new urinary complaints, including dysuria, gross hematuria or pyuria. NEURO: No new balance problems, peripheral weakness/paresthesias or numbness of concern. Physical Exam BP 128/68 (BP Site: Left Arm, BP Position: Sitting, BP Cuff Size: Large Adult) Pulse 77 Temp 36.8 C (98.3 F) Resp 14 Ht 160 cm (5' 3) Wt 89.4 kg (197 lb) LMP 09/26/2014 (Exact Date) SpO2 95% BMI 34.90 kg/m General appearance: Well appearing, alert, in no acute distress, well nourished. Skin: Skin color, texture, turgor normal, no suspicious rashes or lesions Head: Normocephalic, no masses, lesions, tenderness or abnormalities Eyes: Anicteric sclera. Pupils are equally round and reactive to light. Extraocular movements are intact. Lungs: Lungs clear to auscultation. No wheezing, rhonchi, rales Heart: RRR without murmur, gallop, or rubs. Back exam: extreme pain in the right parasternal and flank areas, and some swelling of the muscle. ASSESSMENT/PLAN: 1. Chronic right-sided low back pain without sciatica - ICD9: 724.2, 338.29, ICD10: M54.50, G89.29 (primary diagnosis) It seems very likely to be a muscle contusion, as there was significant pain in her paraspinal muscles 2. Rib pain on right side - ICD9: 786.50, ICD10: R07.81 Atypical chest pain, symptoms are not consistent with cardiac ischemia due to nonexertional nature of symptom possible etiology include musculoskeletal - DEPRESSION SCREENING/ASSESSMENT - CONSULT TO PHYSICAL THERAPY 3. Essential hypertension, benign - ICD9: 401.1, ICD10: I10 - good control - Recommended regular aerobic exercise. - Recommend home blood pressure monitoring, to bring results in on next visit - Goal of BP <130/80 - BASIC METABOLIC PNL Julita Collins MD documented in this encounterShel[facility]02-27-2023 Miscellaneous Notes* Telephone Encounter - Annabelle Nickerson LPN - 06/04/2022 3:49 PM EST Pt switching pharmacy back to [facility]. Patient has been identified by name and date of : Yes, Provider Dr. Collins Date 06/04/22 Time 3:52 pm Patient phones for refill(s): Requested Prescriptions Pending Prescriptions Disp Refills metoprolol succinate ER (TOPROL XL) 100 mg 30 tablet 5 Sig: Take 1 tablet by mouth once daily. chlorthalidone (HYGROTON) 25 mg tablet 30 tablet 5 Sig: Take 1 tablet by mouth once daily. Date of last office visit in primary care: 05/30/22 Last 2 Encounter Wt Readings: Date: Wt: 05/30/2022 89.4 kg (197 lb) 05/16/2022 89.8 kg (198 lb) Previous labs/tests for medication: Blood Pressure: BUN (mg/dL) Date Value 04/26/2021 14 Sodium (mmol/L) Date Value 04/26/2021 140 Last 1 Encounter BP Readings: Date: BP: 05/30/2022 132/90 Thank you. Annabelle Nickerson LPN documented in this encounterShelby [facility]02-22-2023 History of Present illness Narrative* Eliana Curtis, CARA.GERHARD - 05/30/2022 5:54 PM EST CC: Patient presents with: Flank Pain: Flank pain x 4 days HPI Gilma Garcia is a 51 year old female who presents today for right flank pain. Has had pain to right flank that is stabbing and nonradiating since this past Saturday. Thought it was a pulled muscle so used heat and ice without help. Urinary symptoms started appearing over the last few days and is now concerned it is a kidney infection. Reports nausea, some pain with urinating, dark urine she thinks had blood in it and urine smells strong. Denies injury, fever chills, vomtiing, diarrhea,vaginal drainage, abdomianl pain, shortness of breath, or fatigue. REVIEW OF SYSTEMS General: no fevers, no chills, no night sweats, no recurrent infections, no change in appetite, no change in energy, and no significant changes in weight Respiratory: no cough, no wheezing, no shortness of breath, no hemoptysis Cardiovascular: no chest pain, no chest pressure, no palpitations, and no swelling GI: No nausea, vomiting, or diarrhea : See HPI Neurologic: No headache, weakness, numbness, tingling, dizziness, memory loss, syncope. PAST MEDICAL HISTORY Diagnosis Date Acute cholecystitis Chronic low back pain HTN (hypertension) PAST SURGICAL HISTORY Procedure Laterality Date LAPAROSCOPY SURG CHOLECYSTECTOMY 05/23/2015 TONSILLECTOMY PRIMARY/SECONDARY <AGE 11 Tonsillectomy TUBAL LIGATION HX 1993 VAGINAL HYSTERECTOMY UTERUS 250 GM/< 2015 ALLERGIES Mobic [Meloxicam], Naproxen, Prednisone, Tylenol #3 [Codeine], and Vicodin [Hydrocodone-Acetaminophen] MEDICATIONS ibuprofen (MOTRIN) 800 mg tablet Take 1 tablet by mouth every 8 hours as needed for pain. Take withfood. lidocaine (LIDODERM) 5 % Apply 1 Patch as directed every 24 hours. Apply patch for 12 hours then remove and leave off for 12 hours prior to applying a new patch. Location: to right ribs metoprolol succinate ER (TOPROL XL) 100 mg Take 1 tablet by mouth once daily. chlorthalidone (HYGROTON) 25 mg tablet Take 1 tablet by mouth once daily. FLUoxetine (PROZAC) 10 mg capsule Take 1 capsule by mouth once daily. FAMILY HISTORY Problem Relation Age of Onset Hypertension Mother Hypertension Father Coronary Artery Disease Mother Coronary Artery Disease Father Cancer Mother Breast Cancer Father Lung Social History Tobacco Use Smoking status: Never Smokeless tobacco: Never Substance Use Topics Alcohol use: No Drug use: No PHYSICAL EXAM BP 132/90 Pulse 90 Temp 36.6 C (97.9 F) (Temporal) Resp 16 Wt 89.4 kg (197 lb) LMP 09/26/2014 (Exact Date) SpO2 97% BMI 34.90 kg/m General Appearance: well appearing, in no acute distress, alert Skin: Skin color, texture, turgor normal for age; Eyes: conjunctiva pink and moist, no icterus, sclera white, non-injected Back:Full ROM, tender to palpation of right flank without edema, SLR positive on right side seated and supine, left side negative Reflexes 2+ and symmetric Lungs: Lungs clear to auscultation. No wheezing, rhonchi, rales. Heart: RRR without murmur, gallop, or rubs. No ectopy Abdomen: Abdomen soft, non-tender. Bowel sounds normal. No masses, organomegaly Extremities: No deformities, edema, skin discoloration, clubbing or cyanosis. Good capillary refill. Neurological: Gait normal. Reflexes normal and symmetric. Sensation grossly intact. Health maintenance reviewed with patient: HEPATITIS B(1 of 3 - 3-dose series) Never done HIV SCREENING Never done BP CONTROLLED (<130/80) Never done COLORECTAL CANCER SCREENING Never done DEPRESSION ASSESSMENT due on 04/08/2022 INFLUENZA(1) due on 10/05/2022 DTAP,TDAP,TD(2 - Td or Tdap) due on 03/19/2023 SHINGRIX VACCINE(1 of 2) due on 03/19/2023 COVID-19 VACCINE(3 - Booster for Pfizer series) due on 03/19/2023 MAMMOGRAM due on 02/06/2023 ANNUAL PCP TEAM CHRONIC DISEASE VISIT due on 05/16/2023 DIABETES SCREEN due on 04/26/2024 LIPID SCREEN due on 04/26/2026 HEPATITIS C SCREENING Completed PAP TESTING Discontinued HPV TESTING Discontinued DATA REVIEWED: No new labs ASSESSMENT/PLAN: 1. Right flank pain - ICD9: 789.09, ICD10: R10.9 (primary diagnosis) - urine dip only positive for small amount of leukocytes, with assessment possibly muscular - ibuprofen as previously ordered and cyclobenzaprine as ordered. Do not drive or operate heavy machinery after taking cyclobenzaprine - UA DIP, URINE (POC) - URINE CULTURE - follow up if no improvement, if urine culture is positive will treat as indicated 2. Dysuria - ICD9: 788.1, ICD10: R30.0 - UA DIP, URINE (POC) - URINE CULTURE 3. Dark urine - ICD9: 791.9, ICD10: R82.998 - UA DIP, URINE (POC) - URINE CULTURE Prescription instructions reviewed with patient as applicable. Potential red flag symptoms discussed with the patient. Reviewed appropriate action plan to take if red flag symptoms occur. Patient agreeable to treatment plan. Eliana Curtis APRN.CNP documented in this encounterShelby [facility]02-22-2023 Miscellaneous Notes* Telephone Encounter - Marii Mcclain RN - 05/30/2022 11:14 AM EST Patient calls with flank pain right side, joni urine, and frequency. Nurse triage completed. Protocol recommends see provider within 24 hours. Appointment scheduled. Care advice reviewed. Patient verbalizes understanding. Reason for Disposition Side (flank) or lower back pain present Answer Assessment - Initial Assessment Questions 1. SYMPTOM: Flank pain, dark joni urine, and urinary frequency 2. ONSET: Saturday night 3. PAIN: Yes mild to moderate 4. CAUSE: Patient has history of UTI and believes that is what it is. 5. OTHER SYMPTOMS: Afebrile. Flank pain, dark joni urine maybe some blood, and some pain with urination. Protocols used: Urinary [id number] documented in this encounterShelby [facility] Hospital02-08-2023 History of Present illness Narrative* Eliana Curtis, ACCOUNT ADVISOR.GERHARD - 05/16/2022 4:03 PM EST CC: Patient presents with: Recheck: Fell 04/13, still experiencing rib pain HPI Gilma Garcia is a 51 year old female who presents today for right rib pain post fall. Fell down a few of her steps on 04/13/22 and has had ongoing right rib pain since. Has constant rightrib pain described as an achiness, but increasess when she bends over to pick something up especially at work will get an intense pulling pain. Has tried tylenol, advil, aleve, and ice and heat without improvement. [facility] day after fall and then again on 05/04 hoping for work note to allow for light duty but instructed to come to PCP office. 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 Works Saturday through Saturday and requesting a letter for restrictions of lifting until improvement. Denies chest pressure, shortness of breath, fever, chills, dizziness, or any other concerns at thistime. REVIEW OF SYSTEMS General: no fevers, no chills, no night sweats, no recurrent infections, no change in appetite, no change in energy, and no significant changes in weight Respiratory: no cough, no wheezing, no shortness of breath, no hemoptysis Cardiovascular: no chest pressure, no palpitations, and no swelling Skin: Negative for lesions, rash, and itching Neurologic: No headache, weakness, numbness, tingling, dizziness, memory loss, syncope. PAST MEDICAL HISTORY Diagnosis Date Acute cholecystitis Chronic low back pain HTN (hypertension) PAST SURGICAL HISTORY Procedure Laterality Date LAPAROSCOPY SURG CHOLECYSTECTOMY 05/23/2015 TONSILLECTOMY PRIMARY/SECONDARY <AGE 11 Tonsillectomy TUBAL LIGATION HX 1994 VAGINAL HYSTERECTOMY UTERUS 250 GM/< 2015 ALLERGIES Mobic [Meloxicam], Naproxen, Prednisone, Tylenol #3 [Codeine], and Vicodin [Hydrocodone-Acetaminophen] MEDICATIONS metoprolol succinate ER (TOPROL XL) 100 mg Take 1 tablet by mouth once daily. chlorthalidone (HYGROTON) 25 mg tablet Take 1 tablet by mouth once daily. FLUoxetine (PROZAC) 10 mg capsule Take 1 capsule by mouth once daily. FAMILY HISTORY Problem Relation Age of Onset Hypertension Mother Hypertension Father Coronary Artery Disease Mother Coronary Artery Disease Father Cancer Mother Breast Cancer Father Lung Social History Tobacco Use Smoking status: Never Smokeless tobacco: Never Substance Use Topics Alcohol use: No Drug use: No PHYSICAL EXAM BP 132/80 Pulse 85 Resp 16 Wt 89.8 kg (198 lb) LMP 09/26/2014 (Exact Date) SpO2 98% BMI35.07 kg/m General Appearance: well appearing, in no acute distress, alert Skin: Skin color, texture, turgor normal for age; Eyes: conjunctiva pink and moist, no icterus, sclera white, non-injected Lungs: Lungs clear to auscultation. No wheezing, rhonchi, rales. Tenderness reported to palpation of posterior lower right rib cage all the way to anterior right rib cage. No step-offs noted, edema, bruising, or rash. Chest rise and expansion equal bilaterally. Heart: RRR without murmur, gallop, or rubs. No ectopy Health maintenance reviewed with patient: HEPATITIS B(1 of 3 - 3-dose series) Never done HIV SCREENING Never done BP CONTROLLED (<130/80) Never done COLORECTAL CANCER SCREENING Never done DEPRESSION ASSESSMENT due on 04/08/2022 INFLUENZA(1) due on 10/05/2022 DTAP,TDAP,TD(2 - Td or Tdap) due on 03/19/2023 SHINGRIX VACCINE(1 of 2) due on 03/19/2023 COVID-19 VACCINE(3 - Booster for Pfizer series) due on 03/19/2023 MAMMOGRAM due on 02/06/2023 ANNUAL PCP TEAM CHRONIC DISEASE VISIT due on 04/18/2023 DIABETES SCREEN due on 04/26/2024 LIPID SCREEN due on 04/26/2026 HEPATITIS C SCREENING Completed PAP TESTING Discontinued HPV TESTING Discontinued DATA REVIEWED: Most recent labs and imaging results. ASSESSMENT/PLAN: 1. Rib pain on right side - ICD9: 786.50, ICD10: R07.81 - occurred post fall 4 weeks ago. Original xray 4 weeks ago normal. Patient declined having xray repeated at this time, but states if there is no improvement agreeable to this - no concerns noted on exam outside of tenderness probable result of inflammation of tissue and muscle from fall.. - does not tolerate prednisone and many anti-inflammatories, but states she takes ibuprofen withoutissue. - ibuprofen and lidocaine patches as ordered - letter written for light duty at work for the next week to allow area to rest and improve. - follow-up for no improvement Prescription instructions reviewed with patient as applicable. Potential red flag symptoms discussed with the patient. Reviewed appropriate action plan to take if red flag symptoms occur. Patient agreeable to treatment plan. Eliana Curtis APRN.CNP documented in this encounterShelby [facility] Hospital01-30-2023 Miscellaneous Notes* Telephone Encounter - Alisia Waltersgirish ESTRELLA - 05/07/2022 2:14 PM EST Patient has been identified by name and date of : No Patient phones for refill(s): Requested Prescriptions Pending Prescriptions Disp Refills metoprolol succinate ER (TOPROL XL) 100 mg 30 tablet 11 Sig: Take 1 tablet by mouth once daily. chlorthalidone (HYGROTON) 25 mg tablet 30 tablet 11 Sig: Take 1 tablet by mouth once daily. Date of last office visit in primary care: 04/18/2022 Last 2 Encounter Wt Readings: Date: Wt: 05/04/2022 89.4 kg (197 lb) 04/18/2022 88.5 kg (195 lb) Previous labs/tests for medication: Blood Pressure: BUN (mg/dL) Date Value 04/26/2021 14 Sodium (mmol/L) Date Value 04/26/2021 140 Last 1 Encounter BP Readings: Date: BP: 05/04/2022 138/82 Please advise. Thank you. Alisia Bravo LPN * Telephone Encounter - Jeannette Leonard Dev Pss - 05/07/2022 11:41 AM EST Patient switching to [facility] . * Telephone Encounter - Jeannette Leonard Dev Pss - 05/07/2022 11:40 AM EST Pharmacy verified in [facility] Patient has been identified by name and date of : Yes Patient aware RX will be sent to pharmacy. No need to notify patient. Patient phones for refill(s): Requested Prescriptions Pending Prescriptions Disp Refills metoprolol succinate ER (TOPROL XL) 100 mg 30 tablet 11 Sig: Take 1 tablet by mouth once daily. chlorthalidone (HYGROTON) 25 mg tablet 30 tablet 11 Sig: Take 1 tablet by mouth once daily. Date of last office visit : 04/18/2022 Date of next office visit : 05/05/2022 Last 2 Encounter Wt Readings: Date: Wt: 05/04/2022 89.4 kg (197 lb) 04/18/2022 88.5 kg (195 lb) Please advise. Jeannette Leonard Dev Pss documented in this encounterShelby [facility] Hospital01-27-2023 Instructions* Patient Instructions* AIDAN Okeefe - 05/04/2022 5:33 PM EST Patient injured ribs on 04/13/22. XR was negative for fracture. Likely she had rib contusion from fall. documented in this encounterShelby [facility] Hospital01-27-2023 History of Present illness Narrative* AIDAN Okeefe - 05/04/2022 5:26 PM EST Images from the original note were not included. This note was created using [employer]. Subjective Gilma Garcia is a 51 year old female. HPI 51-year-old female presents for right-sided rib pain. Patient states she had a fall 04/13/2022. She had an XR completed here on 04/14/2022. States that she was told that her ribs were bruised. Nothing was broken at that time. Patient states that she is still having some pain in the right side of her ribs. It has not gotten any worse. She is not having any shortness of breath. She denies any new fall or injury. 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 She did not feel a crack or pop. She states that she felt like her rib pain got exacerbated. She states her boss wanted her to come in for reevaluation as she may need to be on light duty due to her rib pain she has been having since the . PAST MEDICAL HISTORY Diagnosis Date Acute cholecystitis Chronic low back pain HTN (hypertension) PAST SURGICAL HISTORY Procedure Laterality Date LAPAROSCOPY SURG CHOLECYSTECTOMY 05/23/2015 TONSILLECTOMY PRIMARY/SECONDARY <AGE 11 Tonsillectomy TUBAL LIGATION HX 1993 VAGINAL HYSTERECTOMY UTERUS 250 GM/< 2015 ALLERGIES Mobic [Meloxicam], Naproxen, Prednisone, Tylenol #3 [Codeine], and Vicodin [Hydrocodone-Acetaminophen] MEDICATIONS codeine-guaiFENesin (ROBITUSSIN AC) 10-100 mg/5 mL syrup Take 5 mL by mouth three times daily as needed for up to 8 days. FLUoxetine (PROZAC) 10 mg capsule Take 1 capsule by mouth once daily. metoprolol succinate ER (TOPROL XL) 100 mg Take 1 tablet by mouth once daily. chlorthalidone (HYGROTON) 25 mg tablet Take 1 tablet by mouth once daily. FAMILY HISTORY Problem Relation Age of Onset Hypertension Mother Hypertension Father Coronary Artery Disease Mother Coronary Artery Disease Father Cancer Mother Breast Cancer Father Lung Social History Tobacco Use Smoking status: Never Smokeless tobacco: Never Substance Use Topics Alcohol use: No Drug use: No Review of Systems Constitutional: Negative for chills and fever. HENT: Negative for congestion, ear pain and sore throat. Respiratory: Negative for cough and shortness of breath. Cardiovascular: Negative for chest pain. Gastrointestinal: Negative for diarrhea and vomiting. Musculoskeletal: Positive for arthralgias (R rib pain). Objective BP 138/82 Pulse 74 Temp 36.6 C (97.8 F) (Tympanic) Resp 18 Wt 89.4 kg (197 lb) LMP 09/26/2014 (Exact Date) SpO2 97% BMI 34.90 kg/m Physical Exam Vitals and nursing note reviewed. Constitutional: General: She is not in acute distress. Appearance: Normal appearance. She is not toxic-appearing. HENT: Right Ear: Tympanic membrane and ear canal normal. Left Ear: Tympanic membrane and ear canal normal. Mouth/Throat: Mouth: Mucous membranes are moist. Cardiovascular: Rate and Rhythm: Normal rate and regular rhythm. Pulmonary: Effort: Pulmonary effort is normal. Breath sounds: Normal breath sounds. Chest: Chest wall: Tenderness present. Comments: Tenderness noted over right lateral lower ribs. No posterior tenderness. No abdominal tenderness. No rash or bruising present. No crepitation. Lungs clear and equal bilaterally. Neurological: Mental Status: She is alert. Assessment and Plan ASSESSMENT/PLAN: 1. Rib pain on right side - ICD9: 786.50, ICD10: R07.81 (primary diagnosis) -XR from 04/14/2022 reviewed. No fracture. Likely patient had rib contusion from fall. She is still having some intermittent pain with lifting. Lungs clear. No obvious deformities on exam. No further falls or injuries. Low suspicion for pneumothorax or new acute fracture. I did offer repeat XR to seeif there are any new finding suggestive of fracture, but patient declines. -She would just like a note for work. 2. Rib injury - ICD9: 959.11, ICD10: S29.9XXA -Occurred on 04/13/2022. -XR done the next day was negative. -Recommended Aleve at home. -Advised follow-up with PCP if she needs restrictions for work. Diagnosis and treatment plan were discussed and questions were answered to the patient's satisfaction. Pt acknowledged understanding of concepts and follow up plan. Specific signs and symptoms that would indicate the need for higher level of care were discussed in detail warranting prompt ER evaluation. AIDAN Okeefe documented in this encounterS[facility]01-[facility]23 Miscellaneous Notes* Telephone Encounter - Julita Collins MD - 05/03/2022 1:56 PM EST Sent medication as requested Regards, Julita Collins MD documented in this encounterShelby [facility]01-11-2023 Instructions* Patient Instructions* Julita Collins MD - 04/18/2022 5:02 PM EST Vit d3 gel capsules 5000 international unit(s) daily after dinner. documented in this encounterShelby [facility]01-11-2023 History of Present illness Narrative* Julita Collins MD - 04/18/2022 4:33 PM EST Reason for Visit Patient presents with: Physical: also c/o fell 04/14/22 seen in urgent care Gilma Garcia is a 51 year old female who presents here today for CPE. Health Maintenance HEPATITIS B(1 of 3 - 3-dose series) HIV SCREENING BP CONTROLLED (<130/80) COLORECTAL CANCER SCREENING DEPRESSION ASSESSMENT HPI Fall via 04/14/22. Was helping her brother carry furniture and tripped down the stairs - hit her side of the corner of a cabinet. Dull achy pain - 9/10 pain. Uses tylenol 4-6 with minimal relief. Aids pain with heat and cold therapy with some relief. Request alternative pain management. MSK: Left shoulder improved since last visit. HYPERTENSION: BP stable at 136/72. Checks BP twice a day, morning and evening. Averages 120-130s/80. Compliant with meds - tolerating well. Voices no side effects. Denies chest pain, palpitations, SOB or edema. Diet: 3 meals a day with occasional snack. Increased fluid intake. Trying to cut back on pop. Monitor salt intake, fat, cholesterol. Eat fruits and vegetables. Sleep: Overall sleeping well but limited due to rib pain. Averages 7-8 hours. Stress: Stressful work environment. Increased anxiety and irritability. Patient requests medicationfor anxiety. Exercise: Walks a lot with work. Patient has anxiety, at the work place she gets worked up a little, she is a little nervous and stressed alittle around people. People and social interactions, are stressful for her. She is tired by noon and continues to be tired in the evening, she does not feel rested when she wakes up. She sleeps a lot , starts sleeping at 7 pm and still has a hard time waking up. She does not snore much. She is always tired and sleepy in the afternoon. She was told she has apneas when she was admitted for a procedure, by the nurse who mentioned that she stopped breathing 10 times. No problem-specific Assessment & Plan notes found for this encounter. PAST MEDICAL HISTORY Diagnosis Date Acute cholecystitis Chronic low back pain HTN (hypertension) PAST SURGICAL HISTORY Procedure Laterality Date LAPAROSCOPY SURG CHOLECYSTECTOMY 05/23/2015 TONSILLECTOMY PRIMARY/SECONDARY <AGE 11 Tonsillectomy TUBAL LIGATION HX 1993 VAGINAL HYSTERECTOMY UTERUS 250 GM/< 2015 FAMILY HISTORY Problem Relation Age of Onset Hypertension Mother Hypertension Father Coronary Artery Disease Mother Coronary Artery Disease Father Cancer Mother Breast Cancer Father Lung Social History Tobacco Use Smoking status: Never Smokeless tobacco: Never Substance Use Topics Alcohol use: No Drug use: No Past medical history, appointments, medications, allergies reviewed. Pertinent Lab/Diagnostic Studies are reviewed and discussed today Current Outpatient Medications: metoprolol succinate ER (TOPROL XL) 100 mg chlorthalidone (HYGROTON) 25 mg tablet Review of Systems CONSTITUTIONAL: No fevers, chills, nightsweats, unintended weight loss HEENT: Denies frequent or severe heaches, nasal congestion/sinus symptoms, problematic allergy problems. EYES: No diplopia or blurry vision. CARDIOVASCULAR: No chest pain, dyspnea, palpitations, orthopnea, PND, ankle edema. PULM: No dyspnea, unexplained cough. GI: No dysphagia/odynophagia, problematic reflux, constipation, diarrhea, changes in stool habits, hematochezia, melena. : No new urinary complaints, including dysuria, gross hematuria or pyuria. NEURO: No new balance problems, peripheral weakness/paresthesias or numbness of concern. MUSC-SKEL: No new joint pain, swelling, or erythema. PSY: No concerns regarding depression, anxiety or panic. INTEGUMENTARY: No new skin changes (rash, new or changing mole, new growth) Physical Exam BP 136/72 (BP Site: Left Arm, BP Position: Sitting, BP Cuff Size: Large Adult) Pulse 82 Temp 36.8 C (98.3 F) Resp 12 Ht 160 cm (5' 3) Wt 88.5 kg (195 lb) LMP 09/26/2014 (Exact Date) SpO2 97% BMI 34.54 kg/m General appearance: Well appearing, alert, in no acute distress, well-hydrated, well nourished. Skin: Skin color, texture, turgor normal, no suspicious rashes or lesions Head: Normocephalic, no masses, lesions, tenderness or abnormalities Eyes: Anicteric sclera. Pupils are equally round and reactive to light. Extraocular movements are intact. Ears: External ears normal, canals clear Nose/Sinuses: Nares normal, septum midline, mucosa normal, no drainage or sinus tenderness Oropharynx: Lips, mucosa, and tongue normal, teeth and gums normal, oropharynx normal Neck: Supple, no adenopathy; thyroid symmetric, normal size, no bruits Back: Normal exam Lungs: Lungs clear to auscultation. No wheezing, rhonchi, rales Heart: RRR without murmur, gallop, or rubs. No ectopy Abdomen: Normal abdominal exam, Abdomen soft, non-tender. Bowel sounds normal. No masses, organomegaly Extremities: No deformities, edema, skin discoloration, clubbing or cyanosis. Good capillary refill. Musculoskeletal: No joint swelling, deformity, or tenderness Peripheral pulses: Normal Neuro: Gait normal. Reflexes normal and symmetric. Sensation grossly intact. ASSESSMENT/PLAN: 1. Annual physical exam - ICD9: V70.0, ICD10: Z00.00 (primary diagnosis) - Counseled on healthy diet and regular exercise - Calcium intake with supplements or by diet of 1000 mg/day for under 50, 1200- 1500 mg/day for 50+ - VITAMIN D 25 HYDROXY - CBC + DIFF - BASIC METABOLIC PNL 2. Anxiety - ICD9: 300.00, ICD10: F41.9 3. Sleep apnea, unspecified type - ICD9: 780.57, ICD10: G47.30 - HOME SLEEP APNEA TEST (HSAT) ASSESSMENT/PLAN: 1. Annual physical exam - ICD9: V70.0, ICD10: Z00.00 (primary diagnosis) - Counseled on healthy diet and regular exercise - Calcium intake with supplements or by diet of 1000 mg/day for under 50, 1200- 1500 mg/day for 50+ - VITAMIN D 25 HYDROXY - CBC + DIFF - BASIC METABOLIC PNL 2. Anxiety - ICD9: 300.00, ICD10: F41.9 Discussed SSRI's in detail, their side effects including weight gain in some, sexual side effects, that it needs to build up in their system and usually in the 3rd week they will start feeling the effects. Also discussed that each SSRI may affect differently , might have to try a couple before finding out a perfect fit. 3. Sleep apnea, unspecified type - ICD9: 780.57, ICD10: G47.30 - HOME SLEEP APNEA TEST (HSAT) 4. Essential hypertension, benign - ICD9: 401.1, ICD10: I10 - good control - Recommended regular aerobic exercise. - Recommend home blood pressure monitoring, to bring results in on next visit - Goal of BP <130/80 5. Vitamin D deficiency - ICD9: 268.9, ICD10: E55.9 Julita Collins MD documented in this encounterShel[facility]01-07-2023 History of Present illness Narrative* Donna De La Cruz APRN.[facility] - 04/14/2022 9:51 AM EST This note was created using NoteWriter. Subjective Gilma Garcia is a 51 year old female. HPI Pt states that she missed a step carrying a box down the stairs and hit her right side. She rates the pain 9/10, she took some Tylenol last night with no relief from the pain. She having trouble taking a deep breathe due the pain. Denies hitting her head or any other part of the body. Review of Systems Respiratory: Negative. Cardiovascular: Negative. Objective BP 142/98 Pulse 85 Resp 16 Wt 88.5 kg (195 lb) LMP 09/26/2014 (Exact Date) SpO2 98% BMI34.54 kg/m Physical Exam Cardiovascular: Rate and Rhythm: Normal rate and regular rhythm. Pulmonary: Breath sounds: Normal breath sounds. Musculoskeletal: General: Tenderness (to the right rib area) present. Neurological: Mental Status: She is alert. ASSESSMENT/PLAN: 1. Rib pain on right side - ICD9: 786.50, ICD10: R07.81 - Chest X-ray today. My reading: Negative for fractures ribs or acute disease. . Radiologist reportto follow. - XR RIBS/CHEST 3V AP RIB/OBLS/CXR RIGHT - Recommended Ibuprofen 600mg every 6 hours with alternating Tylenol xs 2 tablets every 8 hours forpain. Deep breathe exercises every our awake. Follow up with PCP if pain persist or worsens Donna De La Cruz APRN.CNP Medical Decision Making: Problems: Low: Acute, uncomplicated illness or injury Data: Unique test(s) ordered: 1 Risk: Low: Low risk from testing/treatment Moderate: Drug management Medical Decision Making Level: 3 - Low documented in this encounterShelby [facility]01-07-2023 History of Present illness Narrative* Demetria Rojo RT(R) - 04/14/2022 9:50 AM EST Radiology Service Progress Note PATIENT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 regular rhythm. Pulmonary: Effort: No respiratory distress. Breath sounds: Normal breath sounds. No wheezing or rales. Abdominal: Palpations: Abdomen is soft. Tenderness: There is no abdominal tenderness. Musculoskeletal: Right shoulder: Normal. Right upper arm: Normal. Left upper arm: Normal. Cervical back: Neck supple. No tenderness. Thoracic back: Tenderness present. No deformity, signs of trauma, lacerations or bony tenderness. Decreased range of motion. Lumbar back: Edema and tenderness present. No deformity, signs of trauma or bony tenderness. Decreased range of motion. Negative right straight leg raise test and negative left straight leg raise test. Right lower leg: No edema. Left lower leg: No edema. Comments: Diffuse soft tissue tenderness. Sacrococcygeal area mildly tender c/w rest of the back. Neurological: General: No focal deficit present. Mental Status: She is alert. Sensory: No sensory deficit. Motor: No weakness. Coordination: Coordination normal. Gait: Gait normal. Assessment and Plan 1. Closed head injury with concussion, without loss of consciousness, subsequent encounter - ICD9: V58.89, ICD10: S06.0X0D (primary diagnosis) Shared Medical Decision Making was done. Discussed medication dosage, usage, goals of therapy, and side effects. - METHYLPREDNISOLONE 4 MG TABLETS IN A DOSE PACK - ONDANSETRON 4 MG DISINTEGRATING TABLET 2. Contusion of back, unspecified laterality, subsequent encounter - ICD9: V58.89, ICD10: S20.229D - METHYLPREDNISOLONE 4 MG TABLETS IN A DOSE PACK - OXYCODONE-ACETAMINOPHEN 5 MG-325 MG TABLET 3. Contusion of lower back, subsequent encounter - ICD9: V58.89, 922.31, ICD10: S30.0XXD - METHYLPREDNISOLONE 4 MG TABLETS IN A DOSE PACK - OXYCODONE-ACETAMINOPHEN 5 MG-325 MG TABLET 4. Essential hypertension, benign - ICD9: 401.1, ICD10: I10 - poor control - Continue current medication(s) - Reviewed risks of HTN and principles of treatment - Goal of BP <130/80 - METOPROLOL SUCCINATE ER 25 MG TABLET,EXTENDED RELEASE 24 HR Brandon Jimenez MD documented in this encounterS[facility]06-[facility]22 Hospital Discharge instructions Patient Education 09/22/2021 11:50:19 Tailbone (Coccyx) Fracture Tailbone (Coccyx) Fracture Your tailbone (coccyx) is the bone at the very end of your spine. Most tailbone injuries are causedby a seated fall or direct blow. Often, the area around your tailbone is just bruised. But sometimes the bone itself may break (fracture). A tailbone fracture can be very painful and may take some time to heal. Risk factors Women are more likely to injure their tailbones than men. That's because the bone is more exposed in women. In some cases, tailbones can fracture during childbirth. When to go to the Emergency Room (ER) Tailbone injuries are likely to cause pain, swelling, and bruising. Sitting or having a bowel movement may be especially painful. Still, most tailbone fractures are not medical emergencies. Go to your healthcare provider for treatment. Seek emergency care if you have extreme pain, tingling, or weakness in one or both legs. What to expect in the ER Here is what will happen in the ER: A healthcare provider will examine your tailbone. This is done by pressing on the area and gently inserting a gloved finger into your rectum. X-rays may be taken to check the extent of the injury. You may be given medicine to ease discomfort. Treatment There is no way to hold a fractured tailbone in place. For that reason, treatment focuses on makingyou more comfortable while the injury heals. You may be told to ice your injury for a day or two tohelp relieve swelling and pain. During healing, a special pillow or cushion may be recommended to protect your tailbone while you sit. Surgery for a traumatic coccyx injury may be indicated if there is no response to the above treatments. [id number] [employer]. [address] [place] [address], [place] [address]. All rights reserved. This information is not intended as a substitute for professional medical care. Always follow yoursamaritan hospitalcare professional's instructions. 09/22/2021 11:50:07 HEAD INJURY, No Wake-Up (Adult) Head Injury, No Wake-Up (Adult) You have had a head injury. It does not appear serious at this time. Symptoms of a more serious problem (concussion, bruising, or bleeding in the brain) may appear later. Therefore, watch for the WARNING SIGNS listed below. Home Care: Your healthcare provider will tell you whether it s okay to drive. If so, you can drive yourself home. For the next day or so, be careful when driving or using heavy machinery until you are sure you have no delayed symptoms. During the next 24 hours someone must stay with you to check for the signs below. It is not necessary to stay awake or be awakened during the night. If you have swelling of the face or scalp, apply an ice pack (ice cubes in a plastic bag, wrapped in a towel) for 20 minutes. Do this every 1-2 hours until the swelling starts to go down. Do not use aspirin or ibuprofen (Motrin, Advil) after a head injury. You may use acetaminophen (Tylenol) to control pain, unless another pain medicine was prescribed. [NOTE: If you have chronic liveror kidney disease or ever had a stomach ulcer or GI bleeding, talk with your doctor before using these medicines.] For the next 24 hours: Do not take alcohol, sedatives or medicines that make you sleepy. Avoid strenuous activities. No lifting or straining. If you have had any symptoms of a concussion today (nausea, vomiting, dizziness, confusion, headache, memory loss or if you were knocked out), do not return to sports or any activity that could result in another head injury until all symptoms are gone and you have been cleared by your doctor. A second head injury before fully recovering from the first one can lead to serious brain injury. Follow Up with your doctor if symptoms are not improving after 24 hours, or as directed. [NOTE: A radiologist will review any X-rays or CT scans that were taken. We will notify you of any new findings that may affect your care.] Get Prompt Medical Attention if any of the following WARNING SIGNS occur: Repeated vomiting Severe or worsening headache or dizziness Unusual drowsiness, or unable to awaken as usual Confusion or change in behavior or speech, memory loss, blurred vision Convulsion (seizure) Increasing scalp or face swelling Redness, warmth or pus from the swollen area Fluid drainage or bleeding from the nose or ears [id number] [employer]. [address] [place] [address], [place] [address]. All rights reserved. This information is not intended as a substitute for professional medical care. Always follow yourhealthcare professional's instructions. Follow Up Care 09/22/2021 11:36:18 With:JULITA COLLINS MD Address: [address] [place] [address]- When:2-4 days [facility] 06-14-2022 Miscellaneous Notes* Telephone Encounter - Shaylee Yañez LPN - 09/19/2021 2:38 PM EDT Patient was given providers message and verbalized understanding. She states she never started the HCTZ. She is also asking for a refill on her amlodipine. Patient is aware it will be sent to the pharmacy unless there is any problems. * Telephone Encounter - Julita Collins MD - 09/19/2021 2:04 PM EDT I would like to increase the prinivil to 40 mgs daily and she can stop the hctz. Her karen bp log is suggesting an increase of medication. * Telephone Encounter - Beatriz Spicelandmary ESTRELLA - 09/19/2021 9:25 AM EDT Manual Readin/101 Pulse: 118 BP Karen average: 146/86 P: 98 Repeat BP Check: 148/82 P103 #1 145/87 P94 #2 150/81 P96 #3 146/92 P98 #4 133/86 P97 #5 151/90 P99 #6 Reason for blood pressure check - Last BP elevated Patient is: Taking medication as prescribed No Took medication today Yes If no, date medication last taken N/A Experiencing side effects No BP's have been elevated per pt. Also states that she has not been taking the HCTZ d/t how far the restroom is from her at work. Is taking the Lisinopril again however. C/o feeling intermittent dizziness; I just feel like my BP is up. Denies any chest pain, shortness of breath, or headaches. Dailycaffeine use. Past personal history of tobacco use; no current exposure. Alert and oriented. Pt has been identified by name and birthdate: Yes Allergies reviewed: Yes Latex allergy: no. Medication - prescribed and OTC reviewed and updated: Yes Do you need any prescription refills prior to your next visit: Yes Health Maintenance: Reviewed and not up to date and provider notified Patient advised that she would be contacted after review by PCP. Will need additional refills if to stay on current dose of Amlodipine. Beatriz Davenport LPN documented in this encounterS[facility]06-14-[facility]22 History of Present illness Narrative* Beatriz Davenport LPN - 09/19/2021 9:14 AM EDT Manual Readin/101 Pulse: 118 BP Karen average: 146/86 P: 98 Repeat BP Check: 148/82 P103 #1 145/87 P94 #2 150/81 P96 #3 146/92 P98 #4 133/86 P97 #5 151/90 P99 #6 Reason for blood pressure check - Last BP elevated Patient is: Taking medication as prescribed No Took medication today Yes If no, date medication last taken N/A Experiencing side effects No BP's have been elevated per pt. Also states that she has not been taking the HCTZ d/t how far the restroom is from her at work. Is taking the Lisinopril again however. C/o feeling intermittent dizziness; I just feel like my BP is up. Denies any chest pain, shortness of breath, or headaches. Dailycaffeine use. Past personal history of tobacco use; no current exposure. Alert and oriented. Pt has been identified by name and birthdate: Yes Allergies reviewed: Yes Latex allergy: no. Medication - prescribed and OTC reviewed and updated: Yes Do you need any prescription refills prior to your next visit: Yes Health Maintenance: Reviewed and not up to date and provider notified Patient advised that she would be contacted after review by PCP. Beatriz Davenport LPN documented in this encounterS[facility]06-[facility]-2022 History of Present illness Narrative* Enrike Cisneros MD - 09/11/2021 4:11 PM EDT Patient presents with: Ankle Pain: L ankle pain x1 month HPI: Left ankle pain: Duration: Injured on 08/16 and had negative xrays here. Rechecked here 09/01 Location: Anterior and lateral left ankle Character: Still hurting. Throbbing with use Radiation: No. Aggravating: walking Relieving: elevation Pain relievers: aleve Associated: Swelling, tingling Pertinent negatives: MEDICATIONS: amLODIPine (NORVASC) 2.5 mg tablet Take 1 tablet by mouth once daily. hydroCHLOROthiazide (HYDRODIURIL, ESIDRIX) 12.5 mg capsule Take 1 capsule by mouth once daily. hydrOXYzine HCl (ATARAX) 25 mg tablet Take 1 tablet by mouth every 4 hours as needed. ergocalciferol 50,000 unit capsule (VITAMIN D2, DRISDOL) Take 1 tablet by mouth twice weekly [id number], then decrease to 1 tablet weekly. ALLERGIES: ALLERGIES Allergen Reactions Mobic [Meloxicam] Hives Naproxen GI Upset Prednisone Hives, Shortness of Breath Tylenol #3 [Codeine] Hives Vicodin [Hydrocodon* GI Upset Nausea VITALS: BP 164/102 Pulse 89 Temp 36.7 C (98.1 F) Resp 20 Wt 87 kg (191 lb 12.8 oz) LMP 09/26/2014(Exact Date) SpO2 97% BMI 33.98 kg/m Last 4 Encounter BP Readings: Date: BP: 09/11/2021 164/102 09/01/2021 144/82 08/16/2021 172/112 07/04/2021 136/84 PE: Pleasant, in no acute distress. ANKLE: left. Swelling sock ring present. No erythema, ecchymosis, or deformity. Range of motion: inversion - non-painful, eversion - painful, anterior drawer- non-painful. non-painful to bear weight. Mild limping gait. Palpation: Medial malleolus non-painful, lateral malleolus non-painful, Dorsal proximal midfoot - tender anterior tibiotalar joint, proximal 5th metatarsal non-painful. ASSESSMENT/PLAN: 1. Acute left ankle pain - ICD9: 719.47, ICD10: M25.572 - XR ANKLE GENERAL 3V AP/LAT/OBL LEFT - reports she will be unable to stay for xray, can return another day or on day of podiatry consult. - CONSULT TO PODIATRY Enrike Cisneros MD documented in this encounterShelby [facility]05-27-2022 History of Present illness Narrative* Anne Marie CARA Bansal.FIRE TENDER - 09/01/2021 2:02 PM EDT Images from the original note were not included. Subjective Patient injured left ankle 2 weeks and 2 days ago was seen here directly after injury. xray showed no fracture. Patient has been working on foot said she has lots of walking at work and stair to climb at home. denies any loss of feeling, numbness or tingling. Stated the ankle swells at times. Was given an pedro wrap when seen for support. The history is provided by the patient. No english language learner tutor was used. Review of Systems Constitutional: Negative. Skin: Negative. Objective Physical Exam Constitutional: Appearance: Normal appearance. Pulmonary: Effort: Pulmonary effort is normal. Musculoskeletal: Feet: Feet: Comments: Very mild swelling in blue areas as marked. Pulse palpable. No discoloration. Neurological: Mental Status: She is alert. PAST MEDICAL HISTORY Diagnosis Date Acute cholecystitis Chronic low back pain HTN (hypertension) PAST SURGICAL HISTORY Procedure Laterality Date LAPAROSCOPY SURG CHOLECYSTECTOMY 05/23/2015 TONSILLECTOMY PRIMARY/SECONDARY <AGE 11 Tonsillectomy TUBAL LIGATION HX 1993 VAGINAL HYSTERECTOMY UTERUS 250 GM/< 2015 ALLERGIES Mobic [Meloxicam], Naproxen, Prednisone, Tylenol #3 [Codeine], and Vicodin [Hydrocodone-Acetaminophen] MEDICATIONS amLODIPine (NORVASC) 2.5 mg tablet Take 1 tablet by mouth once daily. hydroCHLOROthiazide (HYDRODIURIL, ESIDRIX) 12.5 mg capsule Take 1 capsule by mouth once daily. hydrOXYzine HCl (ATARAX) 25 mg tablet Take 1 tablet by mouth every 4 hours as needed. ergocalciferol 50,000 unit capsule (VITAMIN D2, DRISDOL) Take 1 tablet by mouth twice weekly [id number], then decrease to 1 tablet weekly. FAMILY HISTORY Problem Relation Age of Onset Hypertension Mother Hypertension Father Coronary Artery Disease Mother Coronary Artery Disease Father Cancer Mother Breast Cancer Father Lung Social History Tobacco Use Smoking status: Never Smoker Smokeless tobacco: Never Used Substance Use Topics Alcohol use: No Drug use: No ASSESSMENT/PLAN: 1. Acute left ankle pain - ICD9: 719.47, ICD10: M25.572 Offered to do another follow up xray. Patient has an appointment and does not have time to wait at this moment. If she decides in the future she would like one she will come back. Instructed to continue to ice and rest at this time. Wear pedro wrap and supportive shoes when she dose have to walk. Tryto limit so much walking if possible to allow proper healing of sprain. patient was okay with this care plan Anne Marie Bansal APRN.GERHARD [facility] Instructions* Patient Instructions* Anne Marie Bansal APRN.GERHARD - 09/01/2021 2:01 PM EDT Ankle Sprain What happens when a person sprains his or her ankle? When a person sprains his or her ankle, the ankle joint turns too far in a particular direction. Inside the ankle are tough bands of tissue calledligaments, which hold the different bones together. During a sprain, one or more of those ligamentsstretch too far or even tear (figure 1). This can cause pain and swelling, make the ankle unsteady,and make it hard to put weight on the ankle. What are the symptoms of ankle sprain? The symptoms can include pain, tenderness, swelling, and bruising at the ankle. Some people with an ankle sprain also find it hard to move the foot in certain directions. Plus, some people cannot put weight on the ankle. Is there a test for ankle sprain? Yes and no. A doctor or nurse should be able to tell if you have a sprain by doing an exam and learning about what happened to your ankle. He or she might move your foot in different directions to see what hurts and to check how loose your ankle feels. In some cases, a doctor or nurse might order an X-ray to check for broken bones, but that is not always needed. Should I see a doctor or nurse? See your doctor or nurse if: ?You cannot put weight on your ankle ?Your ankle looks deformed or crooked ?Your ankle is unstable (for example, it gives out while you are climbing stairs) It s also best to see a doctor or nurse if you are not sure how serious an injury is. How is ankle sprain treated? Treatment for a sprained ankle is easy to remember if you think of claudia RIDDLE. Here s what those letters stand for: ?Rest To rest the ankle, you can use crutches and stay off your feet. ?Ice Apply a cold gel pack, bag of ice, or bag of frozen vegetables on your ankle every 1 to 2 hours, for 15 minutes each time. Put a thin towel between the ice (or other cold object) and your skin. Use the ice (or other cold object) for at least 6 hours after your injury. Some people find it helpful to ice longer, even up to 2 days after their injury. ?Compression Compression basically means pressure. You want to have your ankle under slight pressure by having it wrapped in an elastic compression bandage. This helps reduce swelling. Your doctor ornurse will show you how to wrap your ankle. It s important that you do not use too much pressure and cut off the blood flow to your foot. ?Elevation Elevation means you should keep your foot raised up above the level of your heart. To dothis, you can put your foot on some pillows or blankets while you are lying down, or on a table or chair while you are sitting. You can also take medicines to relieve pain, such as acetaminophen (sample brand name: Tylenol), ibuprofen (sample brand names: Advil, Motrin), or naproxen (sample brand name: Aleve). People who have a mild sprain do not usually need to use a splint to keep their foot and ankle still. But people who have a more severe sprain sometimes do. In rare cases, doctors suggest surgery to repair a torn ligament caused by an ankle sprain. Is there anything I can do on my own to feel better? Yes. Most people who have had an ankle sprain heal more quickly if they do certain exercises. The right exercises for you will depend on what kindof sprain you have and how severe it is. Ask your doctor which exercises you should do. As time passes, slowly build up the activities you do with your foot and ankle. You might have an easier time doing some activities if you wear a brace or splint on your ankle during your recovery. documented in this encounterS[facility]05[facility]22 Miscellaneous Notes* Telephone Encounter - Nicky Gandara LPN - 08/18/2021 10:31 AM EDT Phoned patient and left message to return call and ask to speak to a nurse. * Telephone Encounter - Eliana Curtis APRN.CNP - 08/18/2021 7:37 AM EDT We could try hydrochlorothiazide 12.5 mg daily. She needs to come in for nurse BP check in 2 weeks to verify this is controlling her blood pressure. She needs to take this in the morning since it will make her urinate more. Thank you Eliana Curtis APRN.GERHARD * Telephone Encounter - Claribel Harrell RN - 08/17/2021 4:45 PM EDT Patient calls and states that her legs swell during the day. Patient was started on amlodipine on 05/30/2021. Patients states that she was warned by provider that medication could cause this. Patientstates that medication has seemed to keep her blood pressure down. Patient asking if she should be put on something else? Advised that she may have to set up follow up appointment in regards to bloodpressure medications. Claribel Harrell RN documented in this [facility]05[facility] History of Present illness Narrative* Ana Newman PA-C - 08/16/2021 5:45 PM EDT This note was created using [employer]. Subjective Gilma Garcia is a 51 year old female. HPI Patient presents with a left ankle injury times today. She states she was walking on the sidewalk and it was uneven and she twisted her ankle earlier. She walked on it all day at work but it became more swollen and painful so she came in for evaluation. No other injuries. She did take some naproxenfor pain. She had been elevating it at work as well. Review of Systems Musculoskeletal: Left ankle injury All other systems reviewed and are negative. PAST MEDICAL HISTORY Diagnosis Date Acute cholecystitis Chronic low back pain HTN (hypertension) Current Outpatient Medications Medication Sig Dispense Refill lisinopril (ZESTRIL, PRINIVIL) 20 mg tablet Take 1 tablet by mouth twice daily. 60 tablet 6 amLODIPine (NORVASC) 5 mg tablet Take 1 tablet by mouth twice daily. 60 tablet 5 amLODIPine (NORVASC) 5 mg tablet Take 1 tablet by mouth once daily. 30 tablet 5 hydrOXYzine HCl (ATARAX) 25 mg tablet Take 1 tablet by mouth every 4 hours as needed. 60 tablet 2 ergocalciferol 50,000 unit capsule (VITAMIN D2, DRISDOL) Take 1 tablet by mouth twice weekly [id number], then decrease to 1 tablet weekly. (Patient not taking: Reported on 07/04/2021 ) 16 capsule 3 No current facility-administered medications for this visit. PAST SURGICAL HISTORY Procedure Laterality Date LAPAROSCOPY SURG CHOLECYSTECTOMY 05/23/2015 TONSILLECTOMY PRIMARY/SECONDARY <AGE 11 Tonsillectomy TUBAL LIGATION HX 1993 VAGINAL HYSTERECTOMY UTERUS 250 GM/< 2015 FAMILY HISTORY Problem Relation Age of Onset Hypertension Mother Hypertension Father Coronary Artery Disease Mother Coronary Artery Disease Father Cancer Mother Breast Cancer Father Lung Social History Tobacco Use Smoking status: Never Smoker Smokeless tobacco: Never Used Substance Use Topics Alcohol use: No Drug use: No Objective BP 172/112 Pulse 99 Temp 36.7 C (98.1 F) Resp 21 Wt 87.2 kg (192 lb 3.2 oz) LMP 09/26/2014 (Exact Date) SpO2 98% BMI 34.05 kg/m Physical Exam Vitals reviewed. Constitutional: Appearance: Normal appearance. Musculoskeletal: Comments: Patient has tenderness to the medial and lateral malleolus of the left ankle with some mild swelling. Pain with range of motion. Pedal pulses 2+. Some mild swelling at the base of the fifthmetatarsal. Able to ambulate. Skin: General: Skin is warm and dry. Neurological: Mental Status: She is alert. Assessment and Plan ASSESSMENT/PLAN: 1. Injury of left ankle, initial encounter - ICD9: 959.7, ICD10: S99.912A No fracture is visualized on my read of the ankle and foot, pending radiology read. Will call if any changes in their read. Recommended rest, ice, elevation. Can continue naproxen. An Pedro wrap was applied. Follow up with pcp if not improving. Patient agreeable. - XR ANKLE GENERAL 3V AP/LAT/OBL LEFT - XR FOOT GENERAL 3V AP/LAT/OBL LEFT Ana Newman PA-C documented in this encounterS[facility]04-27-2022 History of Present illness Narrative* Marjan Mark - 08/02/2021 8:21 AM EDT POPULATION HEALTH NAVIGATION OUTREACH Action/FYI 2nd attempt Pt identified by name and : YES, via [employer] Outreach Outcome/Action [employer] message sent Reason for Outreach Care Gap or Scheduling/Wellness visits Payer: No coverage found. Care Gap Reviewed:: MICHEL Reminder: Reminder note to check Health Maintenance for items below Health Maintenance items due: HIV SCREENING Never done BP CONTROLLED (<130/80) Never done COLORECTAL CANCER SCREENING Never done DTAP,TDAP,TD(2 - Td or Tdap) due on 06/16/2019 SHINGRIX VACCINE(1 of 2) Never done MAMMOGRAM due on 02/04/2021 COVID-19 VACCINE(3 - Booster for Pfizer series) due on 05/18/2021 DEPRESSION SCREENING due on 07/06/2021 Message Sent to Practice: No Navigation Signature: Marjan Mark August 02, 2021 8:21 AM documented in this encounterS[facility]04[facility]20-2022 History of Present illness Narrative* Marjan Mark - 07/26/2021 3:11 PM EDT POPULATION HEALTH NAVIGATION OUTREACH Action/FYI Please schedule in Orthopedics anyone Acute pain of left knee [M25.562] Pt identified by name and : YES, via [employer] Outreach Outcome/Action MyChart message sent Reason for Outreach Care Gap or Scheduling/Wellness visits Payer: No coverage found. Care Gap Reviewed:: MICHEL Reminder: Reminder note to check Health Maintenance for items below Health Maintenance items due: HIV SCREENING Never done BP CONTROLLED (<130/80) Never done COLORECTAL CANCER SCREENING Never done DTAP,TDAP,TD(2 - Td or Tdap) due on 06/16/2019 SHINGRIX VACCINE(1 of 2) Never done MAMMOGRAM due on 02/04/2021 COVID-19 VACCINE(3 - Booster for Pfizer series) due on 05/18/2021 DEPRESSION SCREENING due on 07/06/2021 Message Sent to Practice: No Navigation Signature: Marjan Mark July 26, 2021 3:11 PM documented in this encounterS[facility]04-[facility]-2022 Miscellaneous Notes* Telephone Encounter - Macrina Goldstein LPN - 07/11/2021 10:14 AM EDT Patient has been identified by name and date of : Yes Patient phones for refill(s): Pending Prescriptions Disp Refills LISINOPRIL 20 MG TABLET 60 tablet 6 Sig: TAKE 1 TABLET TWICE DAILY RICARDO: Yes Please advise. Thank you. Macrina Goldstein LPN documented in this encounterS[facility]01-07-2022 History of Present illness Narrative* Michelle Haley RT(R) - 04/14/2021 4:30 PM EST Radiology Service Progress Note PATIENT NAME: Gilma Garcia DATE OF SERVICE: April 14, 2021 TIME: 4:45 PM PATIENT IDENTITY VERIFICATION COMPLETED USING TWO (2) IDENTIFIERS: Name and Date of confirmedby patient verbally. FALL SCREENING: Has the patient had 2 falls in the last year or 1 fall with injury or currently using an Ambulatory Assistive Device (Walker, Cane, Wheelchair, Crutches, etc.)? No PATIENT GENDER DATA: Female. status: : No status: NO. PATIENT RELEVANT IMPLANT DATA REVIEWED: Not Applicable RADIOLOGY DEPARTMENT: General X-ray: Exam(s) Completed: Upper Extremity X- Ray(s): Elbow, left and Wrist, left PERIPHERAL IV DATA: Not applicable SIGNED BY: RT Benja(R) April 14, 2021 4:45 PM documented in this encounterS[facility]05[facility]29-[facility] History of Past illness Narrative* Problem Noted Date Resolved Date Heavy menses 09/03/2014 10/20/2014 Abnormal uterine bleeding 09/03/20142014 Irregular bleeding 09/03/2014 10/20/2014 documented as of this encounter (statuses as of 07/03/2021) [facility] Narrative* Problem Noted Date Resolved Date Heavy menses 09/03/2014 10/20/2014 Abnormal uterine bleeding 09/03/20142014 Irregular bleeding 09/03/2014 10/20/2014 documented as of this encounter (statuses as of 07/12/2021) [facility] Narrative* Problem Noted Date Resolved Date Heavy menses 09/03/2014 10/20/2014 Abnormal uterine bleeding 09/03/20142014 Irregular bleeding 09/03/2014 10/20/2014 documented as of this encounter (statuses as of 07/26/2021) [facility] Narrative* Problem Noted Date Resolved Date Heavy menses 09/03/2014 10/20/2014 Abnormal uterine bleeding 09/03/20142014 Irregular bleeding 09/03/2014 10/20/2014 documented as of this encounter (statuses as of 08/02/2021) [facility] Narrative* Problem Noted Date Resolved Date Heavy menses 09/03/2014 10/20/2014 Abnormal uterine bleeding 09/03/20142014 Irregular bleeding 09/03/2014 10/20/2014 documented as of this encounter (statuses as of 08/16/2021) [facility] Narrative* Problem Noted Date Resolved Date Heavy menses 09/03/2014 10/20/2014 Abnormal uterine bleeding 09/03/20142014 Irregular bleeding 09/03/2014 10/20/2014 documented as of this encounter (statuses as of 08/18/2021) [facility] Narrative* Problem Noted Date Resolved Date Heavy menses 09/03/2014 10/20/2014 Abnormal uterine bleeding 09/03/20142014 Irregular bleeding 09/03/2014 10/20/2014 documented as of this encounter (statuses as of 08/25/2021) [facility] Narrative* Problem Noted Date Resolved Date Heavy menses 09/03/2014 10/20/2014 Abnormal uterine bleeding 09/03/20142014 Irregular bleeding 09/03/2014 10/20/2014 documented as of this encounter (statuses as of 09/01/2021) [facility] Narrative* Problem Noted Date Resolved Date Heavy menses 09/03/2014 10/20/2014 Abnormal uterine bleeding 09/03/20142014 Irregular bleeding 09/03/2014 10/20/2014 documented as of this encounter (statuses as of 09/11/2021) [facility] Narrative* Problem Noted Date Resolved Date Heavy menses 09/03/2014 10/20/2014 Abnormal uterine bleeding 09/03/20142014 Irregular bleeding 09/03/2014 10/20/2014 documented as of this encounter (statuses as of 09/19/2021) [facility] Narrative* Problem Noted Date Resolved Date Heavy menses 09/03/2014 10/20/2014 Abnormal uterine bleeding 09/03/20142014 Irregular bleeding 09/03/2014 10/20/2014 documented as of this encounter (statuses as of 09/19/2021) [facility] Narrative* Problem Noted Date Resolved Date Heavy menses 09/03/2014 10/20/2014 Abnormal uterine bleeding 09/03/20142014 Irregular bleeding 09/03/2014 10/20/2014 documented as of this encounter (statuses as of 09/22/2021) [facility] Narrative* Problem Noted Date Resolved Date Heavy menses 09/03/2014 10/20/2014 Abnormal uterine bleeding 09/03/20142014 Irregular bleeding 09/03/2014 10/20/2014 documented as of this encounter (statuses as of 09/29/2021) [facility] Narrative* Problem Noted Date Resolved Date Heavy menses 09/03/2014 10/20/2014 Abnormal uterine bleeding 09/03/20142014 Irregular bleeding 09/03/2014 10/20/2014 documented as of this encounter (statuses as of 10/10/2021) [facility]arrative* Problem Noted Date Resolved Date Heavy menses 09/03/2014 10/20/2014 Abnormal uterine bleeding 09/03/20142014 Irregular bleeding 09/03/2014 10/20/2014 documented as of this encounter (statuses as of 10/12/2021) [facility]arrative* Problem Noted Date Resolved Date Heavy menses 09/03/2014 10/20/2014 Abnormal uterine bleeding 09/03/20142014 Irregular bleeding 09/03/2014 10/20/2014 documented as of this encounter (statuses as of 10/18/2021) [facility]* Problem Noted Date Resolved Date Heavy menses 09/03/2014 10/20/2014 Abnormal uterine bleeding 09/03/20142014 Irregular bleeding 09/03/2014 10/20/2014 documented as of this encounter (statuses as of 10/20/2021) [facility]* Problem Noted Date Resolved Date Heavy menses 09/03/2014 10/20/2014 Abnormal uterine bleeding 09/03/20142014 Irregular bleeding 09/03/2014 10/20/2014 documented as of this encounter (statuses as of 10/24/2021) [facility]* Problem Noted Date Resolved Date Heavy menses 09/03/2014 10/20/2014 Abnormal uterine bleeding 09/03/20142014 Irregular bleeding 09/03/2014 10/20/2014 documented as of this encounter (statuses as of 10/30/2021) [facility]* Problem Noted Date Resolved Date Heavy menses 09/03/2014 10/20/2014 Abnormal uterine bleeding 09/03/20142014 Irregular bleeding 09/03/2014 10/20/2014 documented as of this encounter (statuses as of 11/14/2021) [facility]* Problem Noted Date Resolved Date Heavy menses 09/03/2014 10/20/2014 Abnormal uterine bleeding 09/03/20142014 Irregular bleeding 09/03/2014 10/20/2014 documented as of this encounter (statuses as of 12/27/2021) [facility]* Problem Noted Date Resolved Date Heavy menses 09/03/2014 10/20/2014 Abnormal uterine bleeding 09/03/20142014 Irregular bleeding 09/03/2014 10/20/2014 documented as of this encounter (statuses as of 02/09/2022) [facility]* Problem Noted Date Resolved Date Heavy menses 09/03/2014 10/20/2014 Abnormal uterine bleeding 09/03/20142014 Irregular bleeding 09/03/2014 10/20/2014 documented as of this encounter (statuses as of 04/14/2022) [facility]* Problem Noted Date Resolved Date Heavy menses 09/03/2014 10/20/2014 Abnormal uterine bleeding 09/03/20142014 Irregular bleeding 09/03/2014 10/20/2014 documented as of this encounter (statuses as of 04/19/2022) [facility]* Problem Noted Date Resolved Date Heavy menses 09/03/2014 10/20/2014 Abnormal uterine bleeding 09/03/20142014 Irregular bleeding 09/03/2014 10/20/2014 documented as of this encounter (statuses as of 05/03/2022) [facility]* Problem Noted Date Resolved Date Heavy menses 09/03/2014 10/20/2014 Abnormal uterine bleeding 09/03/20142014 Irregular bleeding 09/03/2014 10/20/2014 documented as of this encounter (statuses as of 05/04/2022) [facility]* Problem Noted Date Resolved Date Heavy menses 09/03/2014 10/20/2014 Abnormal uterine bleeding 09/03/20142014 Irregular bleeding 09/03/2014 10/20/2014 documented as of this encounter (statuses as of 05/07/2022) [facility]* Problem Noted Date Resolved Date Heavy menses 09/03/2014 10/20/2014 Abnormal uterine bleeding 09/03/20142014 Irregular bleeding 09/03/2014 10/20/2014 documented as of this encounter (statuses as of 05/08/2022) [facility]* Problem Noted Date Resolved Date Heavy menses 09/03/2014 10/20/2014 Abnormal uterine bleeding 09/03/20142014 Irregular bleeding 09/03/2014 10/20/2014 documented as of this encounter (statuses as of 05/17/2022) [facility] Problem Noted Date Resolved Date Heavy menses 09/03/2014 10/20/2014 Abnormal uterine bleeding 09/03/20142014 Irregular bleeding 09/03/2014 10/20/2014 documented as of this encounter (statuses as of 05/30/2022) [facility] Problem Noted Date Resolved Date Heavy menses 09/03/2014 10/20/2014 Abnormal uterine bleeding 09/03/20142014 Irregular bleeding 09/03/2014 10/20/2014 documented as of this encounter (statuses as of 05/31/2022) [facility]* Problem Noted Date Resolved Date Heavy menses 09/03/2014 10/20/2014 Abnormal uterine bleeding 09/03/20142014 Irregular bleeding 09/03/2014 10/20/2014 documented as of this encounter (statuses as of 06/07/2022) [facility]* Problem Noted Date Resolved Date Heavy menses 09/03/2014 10/20/2014 Abnormal uterine bleeding 09/03/20142014 Irregular bleeding 09/03/2014 10/20/2014 documented as of this encounter (statuses as of 06/08/2022) [facility]* Problem Noted Date Resolved Date Heavy menses 09/03/2014 10/20/2014 Abnormal uterine bleeding 09/03/20142014 Irregular bleeding 09/03/2014 10/20/2014 documented as of this encounter (statuses as of 08/15/2022) [facility]* Problem Noted Date Resolved Date Heavy menses 09/03/2014 10/20/2014 Abnormal uterine bleeding 09/03/20142014 Irregular bleeding 09/03/2014 10/20/2014 documented as of this encounter (statuses as of 09/06/2022) [facility]* Problem Noted Date Resolved Date Heavy menses 09/03/2014 10/20/2014 Abnormal uterine bleeding 09/03/20142014 Irregular bleeding 09/03/2014 10/20/2014 documented as of this encounter (statuses as of 09/07/2022) [facility]* Problem Noted Date Resolved Date Heavy menses 09/03/2014 10/20/2014 Abnormal uterine bleeding 09/03/20142014 Irregular bleeding 09/03/2014 10/20/2014 documented as of this encounter (statuses as of 09/07/2022) [facility]* Problem Noted Date Resolved Date Heavy menses 09/03/2014 10/20/2014 Abnormal uterine bleeding 09/03/20142014 Irregular bleeding 09/03/2014 10/20/2014 documented as of this encounter (statuses as of 09/11/2022) [facility]* Problem Noted Date Resolved Date Heavy menses 09/03/2014 10/20/2014 Abnormal uterine bleeding 09/03/20142014 Irregular bleeding 09/03/2014 10/20/2014 documented as of this encounter (statuses as of 09/11/2022) [facility] History of Past illness Narrative* Problem Noted Date Resolved Date Heavy menses 09/03/2014 10/20/2014 Abnormal uterine bleeding 09/03/20142014 Irregular bleeding 09/03/2014 10/20/2014 documented as of this encounter (statuses as of 09/20/2022) [facility] History of Past illness Narrative* Problem Noted Date Resolved Date Heavy menses 09/03/2014 10/20/2014 Abnormal uterine bleeding 09/03/20142014 Irregular bleeding 09/03/2014 10/20/2014 documented as of this encounter (statuses as of 09/28/2022) [facility] History of Past illness Narrative* Problem Noted Date Resolved Date Heavy menses 09/03/2014 10/20/2014 Abnormal uterine bleeding 09/03/20142014 Irregular bleeding 09/03/2014 10/20/2014 documented as of this encounter (statuses as of 09/28/2022) [facility] History of Past illness Narrative* Problem Noted Date Resolved Date Heavy menses 09/03/2014 10/20/2014 Abnormal uterine bleeding 09/03/20142014 Irregular bleeding 09/03/2014 10/20/2014 documented as of this encounter (statuses as of 10/02/2022) [facility] History of Past illness Narrative* Problem Noted Date Resolved Date Heavy menses 09/03/2014 10/20/2014 Abnormal uterine bleeding 09/03/20142014 Irregular bleeding 09/03/2014 10/20/2014 documented as of this encounter (statuses as of 10/10/2022) [facility] History of Past illness Narrative* Problem Noted Date Diagnosed Date Resolved Date Heavy menses 09/03/2014 10/20/2014 Abnormal uterine bleeding 09/03/2014 Irregular bleeding 09/03/2014 5 documented as of this encounter (statuses as of 10/15/2022) [facility] History of Past illness Narrative* Problem Noted Date Diagnosed Date Resolved Date Heavy menses 09/03/2014 10/20/2014 Abnormal uterine bleeding 09/03/2014 Irregular bleeding 09/03/2014 5 documented as of this encounter (statuses as of 10/22/2022) [facility] History of Past illness Narrative* Problem Noted Date Diagnosed Date Resolved Date Heavy menses 09/03/2014 10/20/2014 Abnormal uterine bleeding 09/03/2014 Irregular bleeding 09/03/2014 5 documented as of this encounter (statuses as of 10/31/2022) [facility] History of Past illness Narrative* Problem Noted Date Diagnosed Date Resolved Date Heavy menses 09/03/2014 10/20/2014 Abnormal uterine bleeding 09/03/2014 Irregular bleeding 09/03/2014 5 documented as of this encounter (statuses as of 11/09/2022) [facility] History of Past illness Narrative* Problem Noted Date Diagnosed Date Resolved Date Heavy menses 09/03/2014 10/20/2014 Abnormal uterine bleeding 09/03/2014 Irregular bleeding 09/03/2014 5 documented as of this encounter (statuses as of 11/09/2022) [facility] History of Past illness Narrative* Problem Noted Date Diagnosed Date Resolved Date Heavy menses 09/03/2014 10/20/2014 Abnormal uterine bleeding 09/03/2014 Irregular bleeding 09/03/2014 5 documented as of this encounter (statuses as of 11/15/2022) [facility] History of Past illness Narrative* Problem Noted Date Diagnosed Date Resolved Date Heavy menses 09/03/2014 10/20/2014 Abnormal uterine bleeding 09/03/2014 Irregular bleeding 09/03/2014 5 documented as of this encounter (statuses as of 12/05/2022) [facility] History of Past illness Narrative* Problem Noted Date Diagnosed Date Resolved Date Heavy menses 09/03/2014 10/20/2014 Abnormal uterine bleeding 09/03/2014 Irregular bleeding 09/03/2014 5 documented as of this encounter (statuses as of 12/17/2022) [facility] History of Past illness Narrative* Problem Noted Date Diagnosed Date Resolved Date Heavy menses 09/03/2014 10/20/2014 Abnormal uterine bleeding 09/03/2014 Irregular bleeding 09/03/2014 5 documented as of this encounter (statuses as of 12/19/2022) [facility] History of Past illness Narrative* Problem Noted Date Diagnosed Date Resolved Date Heavy menses 09/03/2014 10/20/2014 Abnormal uterine bleeding 09/03/2014 Irregular bleeding 09/03/2014 5 documented as of this encounter (statuses as of 12/20/2022) [facility] History of Past illness Narrative* Problem Noted Date Diagnosed Date Resolved Date Heavy menses 09/03/2014 10/20/2014 Abnormal uterine bleeding 09/03/2014 Irregular bleeding 09/03/2014 5 documented as of this encounter (statuses as of 12/21/2022) [facility] History of Past illness Narrative* Problem Noted Date Diagnosed Date Resolved Date Heavy menses 09/03/2014 10/20/2014 Abnormal uterine bleeding 09/03/2014 Irregular bleeding 09/03/2014 5 documented as of this encounter (statuses as of 12/25/2022) [facility] History of Past illness Narrative* Problem Noted Date Diagnosed Date Resolved Date Heavy menses 09/03/2014 10/20/2014 Abnormal uterine bleeding 09/03/2014 Irregular bleeding 09/03/2014 5 documented as of this encounter (statuses as of 12/31/2022) [facility] History of Past illness Narrative* Problem Noted Date Diagnosed Date Resolved Date Heavy menses 09/03/2014 10/20/2014 Abnormal uterine bleeding 09/03/2014 Irregular bleeding 09/03/2014 5 documented as of this encounter (statuses as of 12/31/2022) [facility] History of Past illness Narrative* Problem Noted Date Diagnosed Date Resolved Date Heavy menses 09/03/2014 10/20/2014 Abnormal uterine bleeding 09/03/2014 Irregular bleeding 09/03/2014 5 documented as of this encounter (statuses as of 01/01/2023) [facility] History of Past illness Narrative* Problem Noted Date Diagnosed Date Resolved Date Heavy menses 09/03/2014 10/20/2014 Abnormal uterine bleeding 09/03/2014 Irregular bleeding 09/03/2014 5 documented as of this encounter (statuses as of 01/16/2023) [facility] History of Past illness Narrative* Problem Noted Date Diagnosed Date Resolved Date Heavy menses 09/03/2014 10/20/2014 Abnormal uterine bleeding 09/03/2014 Irregular bleeding 09/03/2014 5 documented as of this encounter (statuses as of 01/24/2023) [facility] History of Past illness Narrative* Problem Noted Date Diagnosed Date Resolved Date Heavy menses 09/03/2014 10/20/2014 Abnormal uterine bleeding 09/03/2014 Irregular bleeding 09/03/2014 5 documented as of this encounter (statuses as of 01/31/2023) [facility] History of Past illness Narrative* Problem Noted Date Diagnosed Date Resolved Date Heavy menses 09/03/2014 10/20/2014 Abnormal uterine bleeding 09/03/2014 Irregular bleeding 09/03/2014 5 documented as of this encounter (statuses as of 02/05/2023) [facility] History of Past illness Narrative* Problem Noted Date Diagnosed Date Resolved Date Heavy menses 09/03/2014 10/20/2014 Abnormal uterine bleeding 09/03/2014 Irregular bleeding 09/03/2014 5 documented as of this encounter (statuses as of 02/05/2023) [facility] History of Past illness Narrative* Problem Noted Date Diagnosed Date Resolved Date Heavy menses 09/03/2014 10/20/2014 Abnormal uterine bleeding 09/03/2014 Irregular bleeding 09/03/2014 5 documented as of this encounter (statuses as of 02/10/2023) [facility] History of Past illness Narrative* Problem Noted Date Diagnosed Date Resolved Date Heavy menses 09/03/2014 10/20/2014 Abnormal uterine bleeding 09/03/2014 Irregular bleeding 09/03/2014 5 documented as of this encounter (statuses as of 02/13/2023) [facility] History of Past illness Narrative* Problem Noted Date Diagnosed Date Resolved Date Heavy menses 09/03/2014 10/20/2014 Abnormal uterine bleeding 09/03/2014 Irregular bleeding 09/03/2014 5 documented as of this encounter (statuses as of 02/19/2023) [facility] History of Past illness Narrative* Problem Noted Date Diagnosed Date Resolved Date Heavy menses 09/03/2014 10/20/2014 Abnormal uterine bleeding 09/03/2014 Irregular bleeding 09/03/2014 5 documented as of this encounter (statuses as of 02/22/2023) [facility] History of Past illness Narrative* Problem Noted Date Diagnosed Date Resolved Date Heavy menses 09/03/2014 10/20/2014 Abnormal uterine bleeding 09/03/2014 Irregular bleeding 09/03/2014 5 documented as of this encounter (statuses as of 02/26/2023) [facility] History of Past illness Narrative* Problem Noted Date Diagnosed Date Resolved Date Heavy menses 09/03/2014 10/20/2014 Abnormal uterine bleeding 09/03/2014 Irregular bleeding 09/03/2014 5 documented as of this encounter (statuses as of 03/01/2023) [facility] History of Past illness Narrative* Problem Noted Date Diagnosed Date Resolved Date Heavy menses 09/03/2014 10/20/2014 Abnormal uterine bleeding 09/03/2014 Irregular bleeding 09/03/2014 5 documented as of this encounter (statuses as of 03/06/2023) [facility] History of Past illness Narrative* Problem Noted Date Diagnosed Date Resolved Date Heavy menses 09/03/2014 10/20/2014 Abnormal uterine bleeding 09/03/2014 Irregular bleeding 09/03/2014 5 documented as of this encounter (statuses as of 03/21/2023) [facility] History of Past illness Narrative* Problem Noted Date Diagnosed Date Resolved Date Heavy menses 09/03/2014 10/20/2014 Abnormal uterine bleeding 09/03/2014 Irregular bleeding 09/03/2014 5 documented as of this encounter (statuses as of 03/21/2023) [facility] History of Past illness Narrative* Problem Noted Date Diagnosed Date Resolved Date Heavy menses 09/03/2014 10/20/2014 Abnormal uterine bleeding 09/03/2014 Irregular bleeding 09/03/2014 5 documented as of this encounter (statuses as of 05/21/2023) [facility] History of Past illness Narrative* Problem Noted Date Diagnosed Date Resolved Date Heavy menses 09/03/2014 10/20/2014 Abnormal uterine bleeding 09/03/2014 Irregular bleeding 09/03/2014 5 documented as of this encounter (statuses as of 05/29/2023) [facility] History of Past illness Narrative* Problem Noted Date Diagnosed Date Resolved Date Heavy menses 09/03/2014 10/20/2014 Abnormal uterine bleeding 09/03/2014 Irregular bleeding 09/03/2014 5 documented as of this encounter (statuses as of 06/05/2023) [facility] History of Past illness Narrative* Problem Noted Date Diagnosed Date Resolved Date Heavy menses 09/03/2014 10/20/2014 Abnormal uterine bleeding 09/03/2014 Irregular bleeding 09/03/2014 5 documented as of this encounter (statuses as of 06/11/2023) [facility] History of Past illness Narrative* Problem Noted Date Diagnosed Date Resolved Date Heavy menses 09/03/2014 10/20/2014 Abnormal uterine bleeding 09/03/2014 Irregular bleeding 09/03/2014 5 documented as of this encounter (statuses as of 06/13/2023) [facility] History of Past illness Narrative* Problem Noted Date Diagnosed Date Resolved Date Heavy menses 09/03/2014 10/20/2014 Abnormal uterine bleeding 09/03/2014 Irregular bleeding 09/03/2014 5 documented as of this encounter (statuses as of 06/17/2023) [facility] History of Past illness Narrative* Problem Noted Date Diagnosed Date Resolved Date Heavy menses 09/03/2014 10/20/2014 Abnormal uterine bleeding 09/03/2014 Irregular bleeding 09/03/2014 5 documented as of this encounter (statuses as of 06/18/2023) [facility] History of Past illness Narrative* Problem Noted Date Diagnosed Date Resolved Date Heavy menses 09/03/2014 10/20/2014 Abnormal uterine bleeding 09/03/2014 Irregular bleeding 09/03/2014 5 documented as of this encounter (statuses as of 2023) [facility] History of Past illness Narrative* Problem Noted Date Diagnosed Date Resolved Date Heavy menses 09/03/2014 10/20/2014 Abnormal uterine bleeding 09/03/2014 Irregular bleeding 09/03/2014 5 documented as of this encounter (statuses as of 07/02/2023) [facility] History of Past illness Narrative* Problem Noted Date Diagnosed Date Resolved Date Heavy menses 09/03/2014 10/20/2014 Abnormal uterine bleeding 09/03/2014 Irregular bleeding 09/03/2014 5 documented as of this encounter (statuses as of 07/02/2023) [facility] History of Past illness Narrative* Problem Noted Date Diagnosed Date Resolved Date Heavy menses 09/03/2014 10/20/2014 Abnormal uterine bleeding 09/03/2014 Irregular bleeding 09/03/2014 5 documented as of this encounter (statuses as of 07/09/2023) [facility] of Past illness Narrative* Problem Noted Date Diagnosed Date Resolved Date Heavy menses 09/03/2014 10/20/2014 Abnormal uterine bleeding 09/03/2014 Irregular bleeding 09/03/2014 5 documented as of this encounter (statuses as of 07/12/2023) [facility] History of Past illness Narrative* Problem Noted Date Diagnosed Date Resolved Date Heavy menses 09/03/2014 10/20/2014 Abnormal uterine bleeding 09/03/2014 Irregular bleeding 09/03/2014 5 documented as of this encounter (statuses as of 07/16/2023) [facility] History of Past illness Narrative* Problem Noted Date Diagnosed Date Resolved Date Heavy menses 09/03/2014 10/20/2014 Abnormal uterine bleeding 09/03/2014 Irregular bleeding 09/03/2014 5 documented as of this encounter (statuses as of 07/19/2023) [facility] History of Past illness Narrative* Problem Noted Date Diagnosed Date Resolved Date Heavy menses 09/03/2014 10/20/2014 Abnormal uterine bleeding 09/03/2014 Irregular bleeding 09/03/2014 5 documented as of this encounter (statuses as of 07/19/2023) [facility] August 13, 2022 8:17am Note Date/Time August 13, 2022 7:21am [facility] Medical Records Department [address] [place] [address] Emergency Department Summary 08/13/22 MR#: [id number] Acct: [id number] Name: GILMA GARCIA Rep #: [id number] : [id number] From: Preston Neri MD PCP: Dr. Julita Collins MD Status:REG E R Location: ED HPI HPI - Fall History of Present Illness Chief Complaint: Fall Narrative Narrative: Patient sustained a mechanical fall and her son's apartment yesterday, she hit the back of her head and her right shoulder. She has some nausea and a headachetoday, she has no vision changes. She did not pass out. She also has shoulder pain especially when she moves it is better at rest. No neck pain no back pain or any other injuries. [facility] Medical History Hypertension Home Medications metoprolol succinate 100 mg capsule sprinkle, ext. release 24 hr 100 mg PO DAILY08/13/22 [History Last Taken Unknown] Allergy/AdvReac Type Severity Reaction Status Date / Time meloxicam [From Mobic] Allergy Hives Verified 08/13/22 07:02 naproxen [From Naprosyn] Allergy Hives Verified 08/13/22 07:02 codeine AdvReac Vomiting Verified 08/13/22 07:02 hydrocodone bitartrate AdvReac Nausea Verified 08/13/22 07:02 [From Vicodin] morphine AdvReac Chest Verified 08/13/22 07:02 tightness Surgical History History of cholecystectomy History of hysterectomy History of tonsillectomy Social History Smoking Status: Former smoker ROS ROS ED ROS Narrative Social: Noncontributory Medications: Reviewed Past medical history: Hypertension Review of systems General: Head injury without loss of consciousness HEENT: No facial injury Neck: No neck pain Cardiovascular: Patient denies any chest pain or palpitations Chest wall: No chest wall contusions Respiratory: There is no shortness of breath GI: Some nausea but no vomiting. No abdominal pain Skin: No lacerations or abrasions Neurological: Patient has no memory loss, confusion, or any focal weakness Back: No back pain, no problems with ambulation Musculoskeletal: Right shoulder pain EXAM Physical Exam Narrative Exam Narrative: Physical exam Vitals reviewed General: Patient appears relatively comfortable in the bed she does not appear in any distress HEENT: No facial injury Head: No evidence of any head injury, no contusions, she does have some tenderness over the back of the head but there does not seem to be any hematoma abrasions or lacerations. Eyes: Extraocular movements intact Neck: No C-spine tenderness with full range of motion Heart: Regular rate normal pulses Chest wall: No chest wall pain Lungs clear lungs bilaterally with normal inspiration and expiration without tachypnea GI: Abdomen is soft and nontender there is no mass no guarding no abdominal wallcontusion : Stable pelvis Musculoskeletal: Tenderness over the AC joint of the right shoulder, otherwise full range of motion with some pain. Skin: No abrasions or laceration Neurological: Patient is alert and oriented with no focal deficits Const Vital Signs: 08/13/22 06:57 08/13/22 07:03 Temperature 97.2 F L Temperature Source Temporal Pulse Rate 73 Respiratory Rate 16 Blood Pressure 164/84 H Blood Pressure Mean 110 Pulse Ox 98 Oxygen Delivery Method Room Air Room Air MDM MDM MDM Narrative Medical decision making narrative: Patient sustained a mechanical fall, head CT is normal shoulder x-ray is normal she likely has a shoulder contusion and may be a grade 1 AC joint injury. However no further treatment is needed. She was reassured. She seems quite comfortable does not need prescription analgesia she can take [id number] opiates. I thought about a CT of the C-spine along with the head however I do not think this is needed at this time the event happened yesterday she has no neck pain and she seems quite comfortable therefore I do not believe she has a distracting injury. Radiography Diagnostic Testing: Clinical Impression(s) from Imaging Studies Brain CT 08/13/22 07:12 IMPRESSION: No acute intracranial process identified. Electronically Signed: Julia Major MD at 8:09 EDT , Shoulder X-Ray 08/13/22 07:40 IMPRESSION: No acute fracture or dislocation identified in the right shoulder. Electronically Signed: Julia Major MD at 8:11 EDT , Right shoulder x-ray read by me as normal CT head interpreted by me as no bleed. Discharge Plan Triage Chief Complaint: Fall ED Provider: Preston Neri Dx/Rx/DC Orders Clinical Impression: Fall, Concussion without loss of consciousness, Contusion of right shoulder Instructions: After a Concussion Prescriptions: No Action metoprolol succinate 100 mg Capsule,Sprinkle,Er 24hr 100 mg PO DAILY Stand Alone Forms: ED Work / School Excuse Primary Care Provider: Julita Collins Referrals: Julita Collins MD [Primary Care Provider] - 2 Days Disposition Disposition: Home, Self Care What to do if you have Problems For any increased pain, shortness of breath, bleeding, nausea or vomiting, chestpain, or any unexpected problems, contact your Primary Care Provider. Call [facility] ([phone]) or report to the closest Emergency Room. Call 911 if necessary. 08/13/22816 <Electronically signed by Preston Neri MD> Cosigner Signature (if applicable): CC: Dr. Julita Collins MD ~ Signed [facility] Work Phone: Evaluation + Plan note No data available for this section [facility] Evaluation note* Diagnosis Essential hypertension Unspecified essential hypertension [facility] Diagnosis Injury of left ankle, initial encounter- Primary [facility] Diagnosis Acute left ankle pain- Primary [facility] Diagnosis Acute left ankle pain- Primary [facility] Diagnosis Essential hypertension, benign- Primary [facility]* Diagnosis Closed head injury with concussion, without loss of consciousness, subsequent encounter- Primary Contusion of back, unspecified laterality, subsequent encounter Contusion of lower back, subsequent encounter Essential hypertension, benign [facility] Treatment not available- Primary Procedure not carried out for other reasons [facility] Diagnosis Contusion of lower back, subsequent encounter Closed head injury with concussion, without loss of consciousness, subsequent encounter Essential hypertension, benign [facility] Diagnosis Contusion of lower back, subsequent encounter [facility] Diagnosis Contusion of lower back, subsequent encounter- Primary [facility] Diagnosis Contusion of lower back, subsequent encounter- Primary [facility] noteNo assessment information availableWOhioHealth [facility] Work Phone: Evaluation note* Diagnosis Essential hypertension, benign- Primary Encounter for immunization Need for other specified prophylactic vaccination against single bacterial disease Screening for HIV (human immunodeficiency virus) Special screening examination for other specified viral diseases [facility] Diagnosis Rib pain on right side- Primary Chest pain, unspecified [facility]* Diagnosis Annual physical exam- Primary Routine general medical examination at a health care facility Anxiety Anxiety state, unspecified Sleep apnea, unspecified type Essential hypertension, benign Vitamin D deficiency Unspecified vitamin D deficiency [facility]* Diagnosis Cough, unspecified type- Primary [facility]* Diagnosis Rib pain on right side- Primary Chest pain, unspecified Rib injury Sprain of ribs Contusion of rib on right side, initial encounter [facility]* Diagnosis Cough, unspecified type [facility]* Diagnosis Essential hypertension, benign [facility]* Diagnosis Rib pain on right side- Primary Chest pain, unspecified [facility]* Diagnosis Right flank pain- Primary Abdominal pain, unspecified site Dysuria Dark urine Other nonspecific finding on examination of urine [facility]* Diagnosis Chronic right-sided low back pain without sciatica- Primary Rib pain on right side Chest pain, unspecified Essential hypertension, benign [facility]* Diagnosis Fall, subsequent encounter- Primary Acute pain of right shoulder Concussion without loss of consciousness, subsequent encounter Hypokalemia Hypopotassemia documented [facility]* Diagnosis Pain in left hand- Primary Carpal tunnel syndrome on both sides Carpal tunnel syndrome Pain in right hand Paresthesia of skin Disturbance of skin sensation [facility] Diagnosis Hypokalemia- Primary Hypopotassemia [facility]* Diagnosis Carpal tunnel syndrome on both sides- Primary Carpal tunnel syndrome Essential hypertension, benign Hypokalemia Hypopotassemia Vitamin D deficiency Unspecified vitamin D deficiency [facility] Diagnosis Essential hypertension, benign- Primary Acute pain of right shoulder [facility] Diagnosis Acute pain of right shoulder- Primary [facility] Diagnosis Acute pain of right shoulder- Primary [facility] Diagnosis Acute pain of right shoulder- Primary [facility] Diagnosis Acute pain of right shoulder- Primary [facility] Diagnosis Cervical radiculopathy- Primary Brachial neuritis or radiculitis nos [facility]* Diagnosis Acute pain of left knee- Primary Acute hip pain, left Localized swelling of left lower leg [facility] Diagnosis Essential hypertension, benign [facility] Diagnosis Acute pain of left knee- Primary Acute hip pain, left [facility] Diagnosis Acute pain of left knee- Primary Acute hip pain, left [facility] Diagnosis Acute pain of left knee- Primary Acute hip pain, left Essential hypertension, benign Vitamin D deficiency Unspecified vitamin D deficiency Hypokalemia Hypopotassemia Prediabetes Other abnormal glucose SOB (shortness of breath) Shortness of breath History of TIA (transient ischemic attack) Transient ischemic attack (TIA), and cerebral infarction without residual deficits Lipid screening Screening for lipoid disorders Screening mammogram for breast cancer [facility] Diagnosis Acute pain of left knee- Primary Acute hip pain, left [facility] Diagnosis Anxiety- Primary Anxiety state, unspecified SOB (shortness of breath) Shortness of breath Prediabetes Other abnormal glucose Low HDL (under 40) Lipoprotein deficiencies Rectal pain Anal or rectal pain Constipation, unspecified constipation type [facility] Diagnosis Right wrist pain- Primary Pain in joint, forearm Dyspepsia Dyspepsia and other specified disorders of function of stomach [facility] Diagnosis Right wrist pain- Primary Pain in joint, forearm [facility] Diagnosis Altered bowel habits- Primary Other symptoms involving digestive system [facility] Diagnosis Cervical radiculopathy Brachial neuritis or radiculitis nos [facility]* Diagnosis Right wrist pain- Primary Pain in joint, forearm [facility] Diagnosis Right wrist pain- Primary Pain in joint, forearm [facility] Diagnosis Altered bowel habits Other symptoms involving digestive system [facility] Diagnosis Right wrist pain- Primary Pain in joint, forearm [facility] Diagnosis Traumatic coccydynia- Primary Status post fall Unspecified fall [facility] Diagnosis Status post fall- Primary Unspecified fall Traumatic coccydynia [facility] Diagnosis Essential hypertension, benign [facility] Diagnosis Traumatic coccydynia- Primary Status post fall Unspecified fall [facility] Diagnosis Traumatic coccydynia- Primary Prediabetes Other abnormal glucose Hypertension, essential Unspecified essential hypertension Low HDL (under 40) Lipoprotein deficiencies [facility]* Diagnosis Traumatic coccydynia- Primary Status post fall Unspecified fall [facility] Diagnosis Traumatic coccydynia- Primary Status post fall Unspecified fall [facility]* Diagnosis Annual physical exam- Primary Routine general medical examination at a [facility] facility Hypertension, essential Unspecified essential hypertension Dizziness Dizziness and giddiness Prediabetes Other abnormal glucose Anxiety and depression Dysthymic disorder Dry skin Other specified disease of sebaceous glands Dermatitis Contact dermatitis and other eczema, due to unspecified cause [facility] Diagnosis Hypertension, essential- Primary Unspecified essential hypertension Dizziness Dizziness and giddiness [facility]* Diagnosis Essential hypertension, benign- Primary Snoring Other dyspnea and respiratory abnormality Witnessed episode of apnea Other fatigue [facility]* Diagnosis Essential hypertension, benign [facility]* Diagnosis Observed sleep apnea- Primary Unspecified sleep apnea Essential hypertension, benign Has daytime drowsiness Loud snoring [facility] Diagnosis Chronic low back pain- Primary Lumbago Essential hypertension, benign Screening mammogram for high-risk patient Menorrhagia Excessive or frequent menstruation Routine health maintenance Routine general medical examination at a [facility] facility Rib pain on right side Chest pain, unspecified [facility] Diagnosis Chronic low back pain- Primary Lumbago Essential hypertension, benign Screening mammogram for high-risk patient Menorrhagia Excessive or frequent menstruation Routine health maintenance Routine general medical examination at a [facility] Injury of left ankle, initial encounter [facility] Diagnosis Chronic low back pain- Primary Lumbago Essential hypertension, benign Screening mammogram for high-risk patient Menorrhagia Excessive or frequent menstruation Routine health maintenance Routine general medical examination at a health care facility Essential hypertension, benign [facility]* Diagnosis Chronic low back pain- Primary Lumbago Essential hypertension, benign Screening mammogram for high-risk patient Menorrhagia Excessive or frequent menstruation Routine health maintenance Routine general medical examination at a health care facility Encounter for screening mammogram for breast cancer [facility]* Diagnosis Chronic low back pain- Primary Lumbago Essential hypertension, benign Screening mammogram for high-risk patient Menorrhagia Excessive or frequent menstruation Routine health maintenance Routine general medical examination at a health care facility Hypertension, essential Unspecified essential hypertension Prediabetes Other abnormal glucose [facility]* Diagnosis Chronic low back pain- Primary Lumbago Essential hypertension, benign Screening mammogram for high-risk patient Menorrhagia Excessive or frequent menstruation Routine health maintenance Routine general medical examination at a health care facility Chronic pain of left knee- Primary Pain in joint, lower leg Fatty liver Other chronic nonalcoholic liver disease Hypertension, essential Unspecified essential hypertension [facility]* Diagnosis Chronic low back pain- Primary Lumbago Essential hypertension, benign Screening mammogram for high-risk patient Menorrhagia Excessive or frequent menstruation Routine health maintenance Routine general medical examination at a health care facility Chronic pain of left knee Pain in joint, lower leg [facility] Diagnosis Chronic low back pain- Primary Lumbago Essential hypertension, benign Screening mammogram for high-risk patient Menorrhagia Excessive or frequent menstruation Routine health maintenance Routine general medical examination at a health care facility Encounter for screening mammogram for breast cancer [facility]* Diagnosis Chronic low back pain- Primary Lumbago Essential hypertension, benign Screening mammogram for high-risk patient Menorrhagia Excessive or frequent menstruation Routine health maintenance Routine general medical examination at a health care facility Chronic pain of left knee Pain in joint, lower leg [facility]* Diagnosis Chronic low back pain- Primary Lumbago Essential hypertension, benign Screening mammogram for high-risk patient Menorrhagia Excessive or frequent menstruation Routine health maintenance Routine general medical examination at a health care facility Chronic pain of right knee- Primary Abnormal x-ray of knee [facility]* Diagnosis Chronic low back pain- Primary Lumbago Essential hypertension, benign Screening mammogram for high-risk patient Menorrhagia Excessive or frequent menstruation Routine health maintenance Routine general medical examination at a health care facility Essential hypertension, benign documented [facility] this [facility] Additional Instructions Scan of chest abdomen pelvis negative. Right elbow negative. Pedro wrap to elbow for comfort. Use incentive spirometer every 2 hours while awake. Take medications as prescribed. Follow-up with your doctor.[facility] Work Phone: Hospital Discharge instructions Additional Instructions Your CAT scan shows the possibility of Crohn's disease. Follow-up with your doctor and manager medicare for further evaluation of this.[facility] Work Phone: Progress note No data available for this section [facility] Progress note Author Pablo Jackson [facility] Note Date/Time September 14, 2024 8:48a m [facility] [address] [place] [address] OFFICE VISIT Date of Service: 09/14/24 MR#: [id number] Acct: [id number] Name: GILMA GARCIA Rep #: [id number] : 1970 Provider: Dr. Ken Jackson MD Age/Sex: 54/F Location: [facility] Status: Signed Intake Vital Signs 07/20/24 10:14 09/14/24 07:49 Height 5 ft 3 in 5 ft 3 in Weight: 185 lb BMI 32.8 BP 181/96 H Blood Pressure Location Lt brachial Position Sitting Pulse 63 Pulse Oximetry (%) 94 Oxygen Delivery Method room air Intake Visit Reasons: ELEVATED LIVER Allergies meloxicam (From Mobic) Allergy (Verified 09/14/24 07:48) Hives naproxen (From Naprosyn) Allergy (Verified 09/14/24 07:48) Hives codeine Adverse Reaction (Verified 09/14/24 07:48) Vomiting hydrocodone bitartrate (From Vicodin) Adverse Reaction (Verified 09/14/24 07:48) Nausea morphine Adverse Reaction (Verified 09/14/24 07:48) Chest tightness Medications ?Medication ?Instructions ?Recorded ?Confirmed ?Type metoprolol succinate 100 mg 100 mg PO DAILY 08/13/22 0 09/14/24 History capsule sprinkle, ext. release 24 hr cholecalciferol (vitamin D3) 1,250 1,250 mcg PO QWEEK 01/06/24 09/14/24 History mcg (50,000 unit) capsule losartan 100 mg tablet 100 mg PO QDAY 01/06/2412/31 History sertraline 50 mg tablet (Zoloft) 50 mg PO QDAY 4 09/14/24 History calcium polycarbophil 625 mg 1,250 mg (2 x 625 mg) PO QDAY #180 08/17/24 09/14/24 Rx tablet (Fiber Laxative (calcium tabs polycarbophil)) pantoprazole 40 mg tablet,delayed 40 mg PO QDAY #90 ta bs 08/17/24 09/14/24 Rx release [facility] Medical History Hypertension Surgical History History of tonsillectomy History of hysterectomy History of cholecystectomy Social History Smoking Status: Former smoker Female Reproductive History Menstrual control method: other (partial hysterectomy - reports she has 1 ovary remaining) HPI HPI Details: GILMA GARCIA, is a 54 F who presents to the office today for consult. OV 5..- Currently established with GI for constipation, abd pain, diarrhea. Requesting to consult hepatology for elevated alkaline phosphatase with moderateto severe hepatic fibrosis and diffuse fatty infiltration of the liver. US abd/ elastography .03.02- Liver measures 15.4cm , Stiffness 10.6 kPa 08.18.24- Fib-4 0.91 09/15/2019: Office visit: Fibrosis. Okay patient also has epigastric/RUQ abdominal pain for many years okay yeah since [address] Pierce. The duct was found dilated but no stones were found. Patient also has alteration of bowel habit for more than 1 year usually constipation and then gets urgency and bowel movement. She had colonoscopy also last year and it found 1 serrated polyp which was reported hyperplastic in pathology in [facility] by Dr. Ever CROCKETT Const Constitutional: Positive for frequent falls; No fatigue, fever(s) or weight change ENT ENT: No difficulty swallowing Resp Respiratory: No shortness of breath or wheezing Cardio Cardiology: No chest pain at rest or dyspnea on exertion Gastro GI: Positive for abdominal pain, bloating, constipation, diarrhea and excessive flatus; No belching, change in bowel habits, change in stool character, coffee ground emesis, cramping, heartburn, difficulty swallowing, feeling full early, incontinent of stools, Vomiting blood/hematemesis, Blood in stool, loose stools,Black,tarry stools, nausea/dyspepsia, pain with swallowing, vomiting or other Genitourinary-Female: No difficulty urinating or burning urination Musc Musculoskeletal: Positive for joint pain and back pain Skin Skin: No yellowing of the eye or itchy eyes Neuro Neurology: Positive for frequent falls Psych Psychiatric: No anxiety and No depression Endo Endocrine: No fatigue or weight change Aller/Imm Allergy/Immunologic: No itchy eyes or wheezing Toi/Lymp Hematologic/Lymphatic: No easy bleeding or easy bruising Exam Const General: cooperative, no acute distress and well developed Nutritional Appearance: average body habitus Orientation: alert, awake and oriented x3 HENMT Head: normocephalic and atraumatic Nose: external nose normal Face and sinus: normal facial exam Mouth: moist mucous membranes Eyes Pupils: PERRL EOM: EOM intact bilaterally Neck Neck: normal visual inspection, no meningeal signs and trachea midline Carotids: no bruits Chest Chest palpation & inspection: normal inspection of the chest Resp Effort & Inspection: normal respiratory effort and symmetric chest movement Auscultation: Bilateral: Clear to Auscultation Cardio Palpation: normal PMI Rate: regular rate Rhythm: regular rhythm Heart Sounds: S1 normal and S2 normal GI Auscultation: normal bowel sounds Percussion: normal to percussion Palpation: soft, no hepatosplenomegaly and no guarding Other: Mild nonspecific tenderness in epigastrium, soft. No guarding or rigidity. No palpable mass. Had cholecystectomy General: bimanual renal exam normal bilaterally, bladder normal to inspection and bladder normal to palpation Bimanual Exam- Vagina & Uterus: bladder normal to palpation Musc Musculoskeletal: No joint tenderness, joint redness, joint warmth or decreased range of motion Thoracic/Lumbar Spine: thor and lumb spine abnorm to inspection Skin General: rashes and/or lesions noted, turgor normal and no erythema Wounds: wound noted Neuro General: patient alert, patient awake, patient oriented x3 and no focal motor deficits Speech: speech normal Motor: muscle tone normal throughout Extrem General: normal exam except as noted Other: No pedal edema Psych Appearance: grossly normal Mood: congruent mood Affect: normal affect Attitude: cooperative Assessment and Plan Assessment and Plan (1) Metabolic dysfunction-associated steatotic liver disease (MASLD): Status: Chronic Plan: Liver ultrasound with elastography shows E QI median 10.6 kPa, median velocity 1.8 ms consistent with moderate liver fibrosis. Serum ELF test ordered. (2) Alkaline phosphatase elevation: Status: Acute Plan: Patient has isolated ALP elevation since 2018. In 2018 patient had direct hyperbilirubinemia with ALT more than AST and ALP about 2 52-86 and had ERCP. After that, other liver chemistry got normal but ALP still elevated although it has decreased to 123. GGT is normal, 10 IU/L. I think it is not from liver/hepatobiliary source as recent liver ultrasound shows liver normal in size, CBD 6 mm status postcholecystectomy. Pancreas obscured. ALP isoenzymes ordered. Other possible causes of ALP may be from bone/musculoskeletal including osteoporosis/rheumatological disease, bowel disease/lesion including celiac disease/dysfunctional bowel transit. Patient is going for EGD. IgA elevated but endomysial IgA antibody, TTG IgA negative. IBD serology panel negative. Other autoimmune markers including ANCA, p-ANCA antichromatin, double-stranded DNA are negative. IgG TTG is negative. Before the diagnosis of irritable bowel syndrome, IBD and celiac disease and chronic infectious diarrhea including Giardia has to be ruled out Colonoscopy polyp, sigmoid reported hyperplastic serrated polyp in pathology. No colonoscopy report available to review Follow-up with Jeannette in 1 to 2-month Follow up with me in 6 months (3) Abdominal pain: Status: Chronic Plan: ERCP by Dr. Pierce in 2018 impression: - The major papilla appeared normal. - A biliary sphincterotomy was performed. - The biliary tree was swept and duct was dilated but no stones were found. Orders: Orders Lipid Profile 3 Months K76.0 - Fatty (change of) liver, not elsewhere classified, R10.9 - Unspecified abdominal pain, R93.5 - Abnormal findings on diagnostic imaging of other abdominal regions, including retroperitoneum Prothrombin Time w/INR 3 Months K76.0 - Fatty (change of) liver, not elsewhere classified, R10.9 - Unspecified abdominal pain, R93.5 - Abnormal findings on diagnostic imaging of other abdominal regions, including retroperitoneum Hemoglobin A1c 3 Months K76.0 - Fatty (change of) liver, not elsewhere classified, R10.9 - Unspecified abdominal pain, R93.5 - Abnormal findings on diagnostic imaging of other abdominal regions, including retroperitoneum Ferritin 3 Months K76.0 - Fatty (change of) liver, not elsewhere classified, R10.9 - Unspecified abdominal pain, R93.5 - Abnormal findings on diagnostic imaging of other abdominal regions, including retroperitoneum Comprehensive Metabolic Profil 3 Months K76.0 - Fatty (change of) liver, not elsewhere classified, R10.9 - Unspecified abdominal pain, R93.5 - Abnormal findings on diagnostic imaging of other abdominal regions, including retroperitoneum CRP 3 Months K76.0 - Fatty (change of) liver, not elsewhere classified, R10.9 -Unspecified abdominal pain, R93.5 - Abnormal findings on diagnostic imaging of other abdominal regions, including retroperitoneum GGTP 3 Months K76.0 - Fatty (change of) liver, not elsewhere classified, R10.9 - Unspecified abdominal pain, R93.5 - Abnormal findings on diagnostic imaging ofother abdominal regions, including retroperitoneum Hepatitis B Surface Antibody 3 Months K76.0 - Fatty (change of) liver, not elsewhere classified, R10.9 - Unspecified abdominal pain, R93.5 - Abnormal findings on diagnostic imaging of other abdominal regions, including retroperitoneum Thyroid Stim Hormone (TSH) 3 Months K76.0 - Fatty (change of) liver, not elsewhere classified, R10.9 - Unspecified abdominal pain, R93.5 - Abnormal findings on diagnostic imaging of other abdominal regions, including retroperitoneum Vitamin D,25 Hydroxy 3 Months K76.0 - Fatty (change of) liver, not elsewhere classified, R10.9 - Unspecified abdominal pain, R93.5 - Abnormal findings on diagnostic imaging of other abdominal regions, including retroperitoneum Iron+Iron Binding Capacity 3 Months K76.0 - Fatty (change of) liver, not elsewhere classified, R10.9 - Unspecified abdominal pain, R93.5 - Abnormal findings on diagnostic imaging of other abdominal regions, including retroperitoneum ALK Phos Isoenzyme 3 Months K76.0 - Fatty (change of) liver, not elsewhere classified, R10.9 - Unspecified abdominal pain, R93.5 - Abnormal findings on diagnostic imaging of other abdominal regions, including retroperitoneum PTHIN 3 Months K76.0 - Fatty (change of) liver, not elsewhere classified, R10.9- Unspecified abdominal pain, R93.5 - Abnormal findings on diagnostic imaging ofother abdominal regions, including retroperitoneum Phosphorus 3 Months K76.0 - Fatty (change of) liver, not elsewhere classified, R10.9 - Unspecified abdominal pain, R93.5 - Abnormal findings on diagnostic imaging of other abdominal regions, including retroperitoneum Magnesium 3 Months K76.0 - Fatty (change of) liver, not elsewhere classified, R10.9 - Unspecified abdominal pain, R93.5 - Abnormal findings on diagnostic imaging of other abdominal regions, including retroperitoneum [facility] Misc. 3 Months Giardia Lamblia, Stool EIA 3 Months K59.01 - Slow transit constipation, R10.9 -Unspecified abdominal pain, R19.7 - Diarrhea, unspecified, R74.8 - Abnormal levels of other serum enzymes [facility] Misc. 2 3 Months R10.9 - Unspecified abdominal pain, R74.8 - Abnormal levels of other serum enzymes SUSAN w/ Reflex Mult Confirm 3 Months R10.9 - Unspecified abdominal pain, R74.8 -Abnormal levels of other serum enzymes Coding Level of Care Code Established Pt Off vis,est,level 4 Patient Type Established History Detailed Medical Decision Making Moderate Complexity Diagnoses Metabolic dysfunction-associated steatotic liver disease (MASLD) K76.0 Alkaline phosphatase elevation R74.8 Abdominal pain R10.9 09/14/24 0848 <Electronically signed by Pablo Jackson MD> Date _ Pablo Jackson MD Cosigner Signature: Date (if applicable) CC: Dr. Julita Collins MD ~ [facility] Work Phone: [facility] Diagnostic Procedure Only (Urgent) - Pending Review Specialty Diagnoses / Procedures Referred By Contac t Referred To Contact XR IMAGING Diagnoses Injury of left ankle, initial encounter Procedures XR FOOT GENERAL 3V AP/LAT/OBL LEFT RADEX FOOT COMPLETE MINIMUM 3 VIEWS Ana Newman PA-C [address] [place] [address] Xr Imaging Referral ID Status Reason Start Date Expiration Date Visits Requested Visits Authorized [id number] Pending Review Auto-Generat ed Referral 08/16/2021 09/15/2022 1 1 * Diagnostic Procedure Only (Urgent) - Pending Review Specialty Diagnoses / Procedures Referred By Contac t Referred To Contact XR IMAGING Diagnoses Injury of left ankle, initial encounter Procedures XR ANKLE GENERAL 3V AP/LAT/OBL LEFT RADEX ANKLE COMPLETE MINIMUM 3 VIEWS Ana Newman PA-C [address] [place] [address] Xr Imaging Referral ID Status Reason Start Date Expiration Date Visits Requested Visits Authorized [id number] Pending Review Auto-Generat ed Referral 08/16/2021 09/15/2022 1 1 [facility] for referral (narrative)* Diagnostic Procedure Only (Urgent) - Closed Specialty Diagnoses / Procedures Referred By Contac t Referred To Contact XR IMAGING Diagnoses Rib pain on right side Procedures XR RIBS/CHEST 3V AP RIB/OBLS/CXR RIGHT RADEX RIBS UNI W/POSTEROANT CH MINIMUM 3 VIEWS Donna De La Cruz APRN.[employer] [address] [place] [address] Xr Imaging Referral ID Status Reason Start Date Expiration Date V isits Requested Visits Authorized [id number] Closed Auto-Generate d Referral 04/14/2022 05/14/2023 1 1 [facility] for referral (narrative)* Diagnostic Procedure Only (Routine) - Pending Review Specialty Diagnoses / Procedures Referred By Mauricioac t Referred To Contact [facility] Diagnoses Sleep apnea, unspecified type Procedures HOME SLEEP APNEA TEST (HSAT) SLEEP STD AIRFLOW HRT RATE&O2 SAT EFFORT CHANATT Julita Collins MD [address] [place] [address] [facility] [place] [address] [place] [address] Referral ID Status Reason Start Date Expiration Date Visits Requested Visits Authorized [id number] Pending Review Auto-Generat ed Referral 04/18/2022 04/18/2023 1 1 [facility] for referral (narrative)* Diagnostic Procedure Only (Routine) - Pending Review Specialty Diagnoses / Procedures Referred By Robin coats Referred To Contact XR IMAGING Diagnoses Chronic right-sided low back pain without sciatica Procedures XR LUMBAR GENERAL 3V AP/LAT/L5-S1 RADEX SPINE LUMBOSACRAL 2/3 VIEWS Julita Collins MD [address] [place] [address] Xr Imaging Referral ID Status Reason Start Date Expiration Date Visits Requested Visits Authorized [id number] Pending Review Auto-Generat ed Referral 06/08/2022 07/08/2023 1 1 * Physical Therapy (Routine) - Pending Review Specialty Diagnoses / Procedures Referred By Robin t Referred To Contact [facility] Diagnoses Rib pain on right side Procedures CONSULT TO PHYSICAL THERAPY PHYSICAL THERAPY EVALUATION HIGH COMPLEX 45 MINS Julita Collins MD [address] [place] [address] [facility] [place] [address] [place] [address] Referral ID Status Reason Start Date Expiration Date Visits Requested Visits Authorized [id number] Pending Review Auto-Generat ed Referral 06/08/2022 06/08/2023 1 1 [facility] for referral (narrative)* Diagnostic Procedure Only (Routine) - Closed Specialty Diagnoses / Procedures Referred By Contac t Referred To Contact XR IMAGING Diagnoses Cervical radiculopathy Procedures XR CERV OTHER 4V AP/LAT/FLX/EXT RADEX SPINE CERVICAL 4 OR 5 VIEWS Jennifer Lucas DO [address] [facility] [address] [place] [address] Xr Imaging Referral ID Status Reason Start Date Expiration Date V isits Requested Visits Authorized [id number] Closed Auto-Generate d Referral 11/15/2022 04/07/2023 1 1 T [facility] for referral (narrative)* Diagnostic Procedure Only (Routine) - Pending Review Specialty Diagnoses / Procedures Referred By Contac t Referred To Contact [facility] Diagnoses Screening mammogram for breast cancer Procedures BI SCREENING W GIULIA SCREENING DIGITAL BREAST TOMOSYNTHESIS BI SCREENING MAMMOGRAPHY BI 2-VIEW BREAST INC Lavonne Weiner PA-C [address] [place] [address] [facility] [address] [place] [address] Referral ID Status Reason Start Date Expiration Date Visits Requested Visits Authorized [id number] Pending Review Auto-Generat ed Referral 12/31/2022 01/30/2024 1 1 [facility] for referral (narrative)* Diagnostic Procedure Only (Routine) - Closed Specialty Diagnoses / Procedures Referred By Contac t Referred To Contact XR IMAGING Diagnoses Cervical radiculopathy Procedures XR CERV OTHER 4V AP/LAT/FLX/EXT RADEX SPINE CERVICAL 4 OR 5 VIEWS Jennifer Lucas DO [address] [place] [address] [place] [address] Referral ID Status Reason Start Date Expiration Date V isits Requested Visits Authorized [id number] Closed Auto-Generate d Referral 11/15/2022 04/07/2023 1 1 [facility] for referral (narrative)* Outpatient Procedure (Routine) - Pending Review Specialty Diagnoses / Procedures Referred By Contac t Referred To Contact [facility] Diagnoses Altered bowel habits Procedures COLONOSCOPY DIAGNOSTIC COLONOSCOPY FLX DX W/COLLJ SPEC WHEN Lucia Keller MD [address] [facility] [place] [address] [facility] [place] [address] [place] [address] Referral ID Status Reason Start Date Expiration Date Visits Requested Visits Authorized [id number] Pending Review Auto-Generat ed Referral 3 03/01/2024 1 1 [facility] for referral (narrative)* Diagnostic Procedure Only (Urgent) - Authorized Specialty Diagnoses / Procedures Referred By Contac t Referred To Contact XR IMAGING Diagnoses Traumatic coccydynia Status post fall Procedures XR SACRUM/COCCYX 3V AP/LAT RADEX SACRUM & COCCYX MINIMUM 2 VIEWS Lavonne Seay PA-C [address] [place] [address] [place] [address] Referral ID Status Reason Start Date Expiration Date Visits Requested Visits Authorized [id number] Authorized Auto-Generat ed Referral 05/20/2023 06/18/2024 1 1 * Physical Therapy (Routine) - Authorized Specialty Diagnoses / Procedures Referred By Contac t Referred To Contact [facility] Diagnoses Traumatic coccydynia Status post fall Procedures CONSULT TO PHYSICAL THERAPY PHYSICAL THERAPY EVALUATION HIGH COMPLEX 45 MINS Lavonne Seay PA-C [address] [place] [address] [facility] [address] [address] Referral ID Status Reason Start Date Expiration Date Visits Requested Visits Authorized [id number] Authorized Auto-Generat ed Referral 04/08/2023 04/07/2024 1 1 [facility] for referral (narrative)* Diagnostic Procedure Only (Routine) - Pending Review Specialty Diagnoses / Procedures Referred By Contac t Referred To Contact [facility] Diagnoses Essential hypertension, benign Snoring Witnessed episode of apnea Other fatigue Procedures HOME SLEEP APNEA TEST (HSAT) SLEEP STD AIRFLOW HRT RATE&O2 SAT EFFORT Eliana Saldana APRN.CNP [address] [place] [address] Neu[facility] [place] [id number] Referral ID Status Reason Start Date Expiration Date Visits Requested Visits Authorized [id number] Pending Review Auto-Generat ed Referral 08/29/2023 08/28/2024 1 1 [facility] for referral (narrative)* Diagnostic Procedure Only (Urgent) - Closed Specialty Diagnoses / Procedures Referred By Contac t Referred To Contact XR IMAGING Diagnoses Rib pain on right side Procedures XR RIBS/CHEST 3V AP RIB/OBLS/CXR RIGHT RADEX RIBS UNI W/POSTEROANT CH MINIMUM 3 VIEWS Donna De La Cruz APRN.CNP [address] [place] [address] [place] [address] Referral ID Status Reason Start Date Expiration Date V isits Requested Visits Authorized [id number] Closed Auto-Generate d Referral 04/14/2022 05/14/2023 1 1 [facility] for referral (narrative)* Diagnostic Procedure Only (Urgent) - Closed Specialty Diagnoses / Procedures Referred By Contac t Referred To Contact XR IMAGING Diagnoses Injury of left ankle, initial encounter Procedures XR FOOT GENERAL 3V AP/LAT/OBL LEFT RADEX FOOT COMPLETE MINIMUM 3 VIEWS Ana Newman PA-C [address] [place] [address] [place] [address] Referral ID Status Reason Start Date Expiration Date V isits Requested Visits Authorized [id number] Closed Auto-Generate d Referral 08/16/2021 09/15/2022 1 1 * Diagnostic Procedure Only (Urgent) - Closed Specialty Diagnoses / Procedures Referred By Contac t Referred To Contact XR IMAGING Diagnoses Injury of left ankle, initial encounter Procedures XR ANKLE GENERAL 3V AP/LAT/OBL LEFT RADEX ANKLE COMPLETE MINIMUM 3 VIEWS Ana Newman PA-C [address] [place] [address] [place] [address] Referral ID Status Reason Start Date Expiration Date V isits Requested Visits Authorized [id number] Closed Auto-Generate d Referral 08/16/2021 09/15/2022 1 1 [facility] for referral (narrative)No reason for referral information availableWOhio[facility] Work Phone: Reason for visit Narrative* Diagnostic Procedure Only (Routine) - Closed Specialty Diagnoses / Procedures Referred By Contac t Referred To Contact XR IMAGING Diagnoses Cervical radiculopathy Procedures XR CERV OTHER 4V AP/LAT/FLX/EXT RADEX SPINE CERVICAL 4 OR 5 VIEWS Jennifer Lucas DO [address] [facility] [address] [place] [address] [place] [address] Referral ID Status Reason Start Date Expiration Date V isits Requested Visits Authorized [id number] Closed Auto-Generate d Referral 11/15/2022 04/07/2023 1 1 [facility] for visit Narrative* Diagnostic Procedure Only (Urgent) - Closed Specialty Diagnoses / Procedures Referred By Contac t Referred To Contact XR IMAGING Diagnoses Rib pain on right side Procedures XR RIBS/CHEST 3V AP RIB/OBLS/CXR RIGHT RADEX RIBS UNI W/POSTEROANT CH MINIMUM 3 VIEWS Donna De La Cruz APRN.FIRE TENDER [address] [place] [address] [place] [address] Referral ID Status Reason Start Date Expiration Date V isits Requested Visits Authorized [id number] Closed Auto-Generate d Referral 04/14/2022 05/14/2023 1 1 [facility] for visit Narrative* Diagnostic Procedure Only (Urgent) - Closed Specialty Diagnoses / Procedures Referred By Contac t Referred To Contact XR IMAGING Diagnoses Injury of left ankle, initial encounter Procedures XR FOOT GENERAL 3V AP/LAT/OBL LEFT RADEX FOOT COMPLETE MINIMUM 3 VIEWS Ana Newman PA-C [address] [place] [id number] [place] [address] Referral ID Status Reason Start Date Expiration Date V isits Requested Visits Authorized [id number] Closed Auto-Generate d Referral 08/16/2021 09/15/2022 1 1 [facility] for visit Narrative* Diagnostic Procedure Only (Urgent) - Closed Specialty Diagnoses / Procedures Referred By Contac t Referred To Contact XR IMAGING Diagnoses Knee injuries, left, initial encounter Procedures XR KNEE GENERAL 4V AP BOTH/PA BOTH/LAT/MERC LEFT RADIOLOGIC EXAM KNEE COMPLETE 4/MORE VIEWS Christi Mishra ACCOUNT ADVISOR.FIRE TENDER [address] [place] [address] [place] [address] Referral ID Status Reason Start Date Expiration Date V isits Requested Visits Authorized [id number] Closed Auto-Generate d Referral 06/14/2021 07/14/2022 1 1 [facility] for visit Narrative* Diagnostic Procedure Only (Urgent) - Closed Specialty Diagnoses / Procedures Referred By Contac t Referred To Contact XR IMAGING Diagnoses Left arm pain Left wrist pain Procedures XR FOREARM SPECIAL VIEWS 4V AP/LAT/OBL LEFT X-RAY FOREARM Lavonne Seay PA-C [address] [place] [address] [place] [address] Referral ID Status Reason Start Date Expiration Date V isits Requested Visits Authorized [id number] Closed Auto-Generate d Referral 04/14/2021 05/14/2022 1 1 [facility] for visit Narrative* Diagnostic Procedure Only (Routine) - Closed Specialty Diagnoses / Procedures Referred By Robin t Referred To Contact [facility] Diagnoses Encounter for screening mammogram for breast cancer Procedures BI SCREENING W GIULIA SCREENING DIGITAL BREAST TOMOSYNTHESIS BI SCREENING MAMMOGRAPHY BI 2-VIEW BREAST INC CAD Julita Collins MD [address] [place] [address] Phone: tel: fax: [facility] [address] [place] [address] Referral ID Status Reason Start Date Expiration Date V isits Requested Visits Authorized [id number] Closed Auto-Generate d Referral 05/26/2024 06/25/2025 1 1 [facility] for visit Narrative* Diagnostic Procedure Only (Routine) - Closed Specialty Diagnoses / Procedures Referred By Robin coats Referred To Contact XR IMAGING Diagnoses Chronic pain of left knee Procedures XR KNEE GENERAL 4V AP BOTH/PA BOTH/LAT/MERC LEFT RADIOLOGIC EXAM KNEE COMPLETE 4/MORE VIEWS Julita Collins MD [address] [place] [address] Phone: tel: fax: [place] [address] Referral ID Status Reason Start Date Expiration Date V isits Requested Visits Authorized [id number] Closed Auto-Generate d Referral 07/22/2024 08/21/2025 1 1 [facility] Advance Directives Documents on File Type Date Recorded 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 Advance Directive(s) Documents on File Type Date Recorded 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 Advance Directive(s) Advance Directive Response Recorded Date/ Time Advance Directives No April 13, 2016 7:36pm Living Will No December 06 7:57pm Power of Chief Engineer Waterworks No December 06 7:57pm Advance Directive Response Recorded Date/ Time Advance Directives No April 13, 2016 6:36pm Living Will No November 19th, 2 022 8:55am Power of Chief Engineer Waterworks No February 24, 2022 8:55am Advance Directive Response Recorded Date/ Time Advance Directives No April 13, 2016 7:36pm Living Will No August 13, 2022 7: 01am Power of Chief Engineer Waterworks No August 13, 2022 7:01am Advance Directive Response Recorded Date/ Time Advance Directives No April 13, 2016 7:36pm Living Will No October 26, 2022 7:25am Power of Chief Engineer Waterworks No October 26 7:25am Advance Directive Response Recorded Date/ Time Advance Directives No April 13, 2016 6:36pm Living Will No March 30, 023 3:39am Power of Chief Engineer Waterworks No March 30, 2023 3:39am Advance Directive Response Recorded Date/ Time Advance Directives No April 13, 2016 7:36pm Living Will No July 18, 2023 10:21pm Power of Chief Engineer Waterworks No July 17 10:21pm Advance Directive Response Recorded Date/ Time Living Will No July 18, 2023 10:21pm Power of Chief Engineer Waterworks No July 17 10:21pm Advance Directives No April 13, 2016 7:36pm Advance Directive Response Recorded Date/ Time Living Will No July 18, 2023 10:21pm Do you have a Healthcare Power of Chief Engineer Waterworks? No July 18, 2023 10:21pm Advance Directives No April 13, 2016 7:36pm Advance Directive Response Recorded Date/ Time Advance Directives No April 13, 2016 7:36pm Reason for Referral Specialty Diagnoses / Procedures Referred By Contac t Referred To Contact Podiatry Diagnoses Acute left ankle pain Procedures CONSULT TO PODIATRY OFFICE/OUTPATIENT [facility] MDM 60-74 MINUTES Enrike Cisneros MD [address] [place] [address] Referral ID Status Reason Start Date Expiration Date Visits Requested Visits Authorized [id number] Pending Review PCP Requested Referral 09/11/2021 09/11/2022 1 1 Specialty Diagnoses / Procedures Referred By Contac t Referred To Contact XR IMAGING Diagnoses Acute left ankle pain Procedures XR ANKLE GENERAL 3V AP/LAT/OBL LEFT RADEX ANKLE COMPLETE MINIMUM 3 VIEWS Enrike Cisneros MD [address] [place] [address] Xr Imaging Referral ID Status Reason Start Date Expiration Date Visits Requested Visits Authorized [id number] Pending Review Auto-Generat ed Referral 09/11/2021 10/11/2022 1 1 Specialty Diagnoses / Procedures Referred By Contac t Referred To Contact [facility] Diagnoses Contusion of lower back, subsequent encounter Procedures CONSULT TO PHYSICAL THERAPY PHYSICAL THERAPY EVALUATION HIGH COMPLEX 45 MINS Brandon Jimenez MD [address] [place] [address] [facility] [place] [address] [place] [address] Referral ID Status Reason Start Date Expiration Date Visits Requested Visits Authorized [id number] Pending Review Auto-Generat ed Referral 10/12/2021 10/12/2022 1 1 Specialty Diagnoses / Procedures Referred By Contac t Referred To Contact [facility] Diagnoses Acute pain of right shoulder Procedures CONSULT TO PHYSICAL THERAPY PHYSICAL THERAPY EVALUATION HIGH COMPLEX 45 MINS Eliana Curtis APRN.FIRE TENDER [address] [place] [address] [facility] [place] [address] [place] [address] Referral ID Status Reason Start Date Expiration Date Visits Requested Visits Authorized [id number] Pending Review Auto-Generat ed Referral 09/06/2022 09/06/2023 1 1 Specialty Diagnoses / Procedures Referred By Contac t Referred To Contact Orthopedics Diagnoses Carpal tunnel syndrome on both sides Procedures CONSULT TO ORTHOPAEDICS OFFICE/OUTPATIENT [facility] 60-74 MINUTES Julita Collins MD [address] [place] [address] Referral ID Status Reason Start Date Expiration Date Visits Requested Visits Authorized [id number] Pending Review PCP Requested Referral 09/10/2022 09/10/2023 1 1 Specialty Diagnoses / Procedures Referred By Contac t Referred To Contact [facility] Diagnoses Acute pain of left knee Acute hip pain, left Procedures CONSULT TO PHYSICAL THERAPY PHYSICAL THERAPY EVALUATION HIGH COMPLEX 45 MINS Lavonne Seay PA-C [address] [place] [address] [facility] [place] [address] [place] [address] Referral ID Status Reason Start Date Expiration Date Visits Requested Visits Authorized [id number] Pending Review Auto-Generat ed Referral 12/05/2022 12/05/2023 1 1 Specialty Diagnoses / Procedures Referred By Contac t Referred To Contact [facility] Diagnoses Right wrist pain Procedures CONSULT TO PHYSICAL THERAPY PHYSICAL THERAPY EVALUATION HIGH COMPLEX 45 MINS Lavonne Seay PA-C [address] [place] [address] [facility] [address] [address] Referral ID Status Reason Start Date Expiration Date Visits Requested Visits Authorized [id number] Pending Review Auto-Generat ed Referral 3 01/23/2024 1 1 Specialty Diagnoses / Procedures Referred By Contac t Referred To Contact General Surgery Diagnoses Altered bowel habits Procedures CONSULT TO GENERAL SURGERY OFFICE/OUTPATIENT [facility] 60-74 MINUTES Lavonne Seay PA-C [address] [place] [address] Referral ID Status Reason Start Date Expiration Date Visits Requested Visits Authorized [id number] Pending Review PCP Requested Referral 3 02/04/2024 1 1 Specialty Diagnoses / Procedures Referred By Contac t Referred To Contact [facility] Diagnoses Traumatic coccydynia Status post fall Procedures PT REHAB FOLLOW UP ORDER THERAPEUTIC EXERCISES RE, EA 15 MIN. Lashay Lara, PT [facility] [place] [address] [place] [address] Referral ID Status Reason Start Date Expiration Date Visits Requested Visits Authorized [id number] Pending Review PCP Requested Referral Auto-Generate d Referral 05/29/2023 08/27/2023 1 1 Specialty Diagnoses / Procedures Referred By Contac t Referred To Contact Diagnoses Essential hypertension, benign Observed sleep apnea Has daytime drowsiness Loud snoring Procedures CONSULT TO SLEEP MEDICINE - ADULT OFFICE/OUTPATIENT [facility] MDM 60 MINUTES Roberta Pritchard APRN.STUDIO ENGINEER [address] [place] [address] Referral ID Status Reason Start Date Expiration Date Visits Requested Visits Authorized [id number] Authorized PCP Requested Referral 10/22/2023 10/21/2024 1 1 Chief Complaint and Reason for Visit Chief Complaint fall Chief Complaint fall fall Chief Complaint abd pain Chief Complaint abd pain htn Chief Complaint Admit Date 3 M FU April 15, 2024 8: 42am INT LAB ORDERS June 08, 2024 7:51 am FATTY LIVER June 16, 2024 9:4 8am 6 wk FU June 17, 2024 9:1 8am Reason for Visit Admit Date Abdominal cramping April 15, 2024 8: 42am Constipation April 15, 2024 8: 42am Diarrhea April 15, 2024 8: 42am Fatty liver April 15, 2024 8: 42am Fecal incontinence April 15, 2024 8: 42am Abdominal cramping June 17, 2024 9:[address] of the abdomen June 17 025 9:18am Diarrhea June 17, 2024 9:1 8am Fecal incontinence June 17, 2024 9:1 8am Chief Complaint Admit Date 3 M FU April 15, 2024 8: 42am INT LAB ORDERS June 08, 2024 7:51 am FATTY LIVER June 16, 2024 9:4 8am 6 wk FU June 17, 2024 9:1 8am Test Result July 20, 2024 9:5 9am E-ORDER July 23, 2024 12: 11pm INT XRAY ORDER July 25, 2024 8:2 2am Reason for Visit Admit Date Abdominal cramping April 15, 2024 8: 42am Constipation April 15, 2024 8: 42am Diarrhea April 15, 2024 8: 42am Fatty liver April 15, 2024 8: 42am Fecal incontinence April 15, 2024 8: 42am Abdominal cramping June 17, 2024 9:[address] of the abdomen June 17, 2 025 9:18am Diarrhea June 17, 2024 9:1 8am Fecal incontinence June 17, 2024 9:1 8am Abdominal cramping July 20, 2024 9:5 9am Constipation July 20, 2024 9:5 9am Diarrhea July 20, 2024 9:5 9am Fecal incontinence July 20, 2024 9:5 9am Chief Complaint Admit Date INT LAB ORDERS June 08, 2024 7:51 am FATTY LIVER June 16, 2024 9:4 8am 6 wk FU June 17, 2024 9:1 8am Test Result July 20, 2024 9:5 9am E-ORDER July 23, 2024 12: 11pm INT XRAY ORDER July 25, 2024 8:2 2am E ORDERS August 07, 2024 7:32am FU August 17, 2024 8:12a m INT LABS August 18, 2024 7:04a m Reason for Visit Admit Date Abdominal cramping June 17, 2024 9:[address] of the abdomen June 17, 2 025 9:18am Diarrhea June 17, 2024 9:1 8am Fecal incontinence June 17, 2024 9:1 8am Abdominal cramping July 20, 2024 9:5 9am Constipation July 20, 2024 9:5 9am Diarrhea July 20, 2024 9:5 9am Fecal incontinence July 20, 2024 9:5 9am Abdominal cramping August 17, 2024 8:12a m Constipation August 17, 2024 8:12a m Dyspepsia August 17, 2024 8:12a m Fatty liver August 17, 2024 8:12a m Heartburn August 17, 2024 8:12a m Chief Complaint Admit Date INT LAB ORDERS June 08, 2024 7:51 am FATTY LIVER June 16, 2024 9:4 8am 6 wk FU June 17, 2024 9:1 8am Test Result July 20, 2024 9:5 9am E-ORDER July 23, 2024 12: 11pm INT XRAY ORDER July 25, 2024 8:2 2am E ORDERS August 07, 2024 7:32am FU August 17, 2024 8:12a m INT LABS August 18, 2024 7:04a m ELEVATED LIVER September 14, 2024 7:44a m LUMBAR September 14, 2024 8:26a m Reason for Visit Admit Date Abdominal cramping June 17, 2024 9:[address] of the abdomen June 17, 2 025 9:18am Diarrhea June 17, 2024 9:1 8am Fecal incontinence June 17, 2024 9:1 8am Abdominal cramping July 20, 2024 9:5 9am Constipation July 20, 2024 9:5 9am Diarrhea July 20, 2024 9:5 9am Fecal incontinence July 20, 2024 9:5 9am Abdominal cramping August 17, 2024 8:12a m Constipation August 17, 2024 8:12a m Dyspepsia August 17, 2024 8:12a m Heartburn August 17, 2024 8:12a m Fatty liver August 17, 2024 8:12a m Alkaline phosphatase elevation September 14, 2024 7:44am Abdominal pain September 14, 2024 7:44a m Metabolic dysfunction-associ ated steatotic liver disease (MASLD) September 14, 2024 7:44am Family History Relationship Condition Age at Onset Recorded Date/T laura Unknown Family History?Heart Disease, - Unknown May 22, 2015 11:51am Family History?Heart Disease, - Unknown March 19, 2018 2:04pm Relationship Condition Age at Onset Recorded Date/T laura Unknown Family History?Heart Disease, - Unknown May 22, 2015 10:51am Family History?Heart Disease, - Unknown March 19, 2018 1:04pm Summary Purpose Additional Source Comments Source Comments (unrecognize d section and content) In the event this informatio n is protected by the Federal Confidentiality of Alcohol and Drug Abuse Patient Records regulations: The Federal rules restrict any use of the information to criminally investigate or prosecute any alcohol or drug abuse patient.[facility] the event this information is protected by the Federal Confidentiality of Alcohol and Drug Abuse Patient Records regulations: The Federal rules restrict any use of the information to criminally investigate or prosecute any alcohol or drug abuse patient.[facility] Hospital[facility] the event this information is protected by the Federal Confidentiality of Alcohol and Drug Abuse Patient Records regulations: The Federal rules restrict any use of the information to criminally investigate or prosecute any alcohol or drug abuse patient.[facility] the event this information is protected by the Federal Confidentiality of Alcohol and Drug Abuse Patient Records regulations: The Federal rules restrict any use of the information to criminally investigate or prosecute any alcohol or drug abuse patient.[facility] the event this information is protected by the Federal Confidentiality of Alcohol and Drug Abuse Patient Records regulations: The Federal rules restrict any use of the information to criminally investigate or prosecute any alcohol or drug abuse patient.[facility] Hospital[facility] the event this information is protected by the Federal Confidentiality of Alcohol and Drug Abuse Patient Records regulations: The Federal rules restrict any use of the information to criminally investigate or prosecute any alcohol or drug abuse patient.[facility] Hospital[facility] the event this information is protected by the Federal Confidentiality of Alcohol and Drug Abuse Patient Records regulations: The Federal rules restrict any use of the information to criminally investigate or prosecute any alcohol or drug abuse patient.[facility] the event this information is protected by the Federal Confidentiality of Alcohol and Drug Abuse Patient Records regulations: The Federal rules restrict any use of the information to criminally investigate or prosecute any alcohol or drug abuse patient.[facility] HospitalIn the event this information is protected by the Federal Confidentiality of Alcohol and Drug Abuse Patient Records regulations: The Federal rules restrict any use of the information to criminally investigate or prosecute any alcohol or drug abuse patient.[facility] HospitalIn the event this information is protected by the Federal Confidentiality of Alcohol and Drug Abuse Patient Records regulations: The Federal rules restrict any use of the information to criminally investigate or prosecute any alcohol or drug abuse patient.[facility] HospitalIn the event this information is protected by the Federal Confidentiality of Alcohol and Drug Abuse Patient Records regulations: The Federal rules restrict any use of the information to criminally investigate or prosecute any alcohol or drug abuse patient.[facility] HospitalIn the event this information is protected by the Federal Confidentiality of Alcohol and Drug Abuse Patient Records regulations: The Federal rules restrict any use of the information to criminally investigate or prosecute any alcohol or drug abuse patient.[facility] HospitalIn the event this information is protected by the Federal Confidentiality of Alcohol and Drug Abuse Patient Records regulations: The Federal rules restrict any use of the information to criminally investigate or prosecute any alcohol or drug abuse patient.[facility] HospitalIn the event this information is protected by the Federal Confidentiality of Alcohol and Drug Abuse Patient Records regulations: The Federal rules restrict any use of the information to criminally investigate or prosecute any alcohol or drug abuse patient.[facility] HospitalIn the event this information is protected by the Federal Confidentiality of Alcohol and Drug Abuse Patient Records regulations: The Federal rules restrict any use of the information to criminally investigate or prosecute any alcohol or drug abuse patient.[facility] HospitalIn the event this information is protected by the Federal Confidentiality of Alcohol and Drug Abuse Patient Records regulations: The Federal rules restrict any use of the information to criminally investigate or prosecute any alcohol or drug abuse patient.[facility] HospitalIn the event this information is protected by the Federal Confidentiality of Alcohol and Drug Abuse Patient Records regulations: The Federal rules restrict any use of the information to criminally investigate or prosecute any alcohol or drug abuse patient.[facility] HospitalIn the event this information is protected by the Federal Confidentiality of Alcohol and Drug Abuse Patient Records regulations: The Federal rules restrict any use of the information to criminally investigate or prosecute any alcohol or drug abuse patient.[facility] HospitalIn the event this information is protected by the Federal Confidentiality of Alcohol and Drug Abuse Patient Records regulations: The Federal rules restrict any use of the information to criminally investigate or prosecute any alcohol or drug abuse patient.[facility] HospitalIn the event this information is protected by the Federal Confidentiality of Alcohol and Drug Abuse Patient Records regulations: The Federal rules restrict any use of the information to criminally investigate or prosecute any alcohol or drug abuse patient.[facility] HospitalIn the event this information is protected by the Federal Confidentiality of Alcohol and Drug Abuse Patient Records regulations: The Federal rules restrict any use of the information to criminally investigate or prosecute any alcohol or drug abuse patient.[facility] HospitalIn the event this information is protected by the Federal Confidentiality of Alcohol and Drug Abuse Patient Records regulations: The Federal rules restrict any use of the information to criminally investigate or prosecute any alcohol or drug abuse patient.[facility] HospitalIn the event this information is protected by the Federal Confidentiality of Alcohol and Drug Abuse Patient Records regulations: The Federal rules restrict any use of the information to criminally investigate or prosecute any alcohol or drug abuse patient.[facility] HospitalIn the event this information is protected by the Federal Confidentiality of Alcohol and Drug Abuse Patient Records regulations: The Federal rules restrict any use of the information to criminally investigate or prosecute any alcohol or drug abuse patient.[facility] HospitalIn the event this information is protected by the Federal Confidentiality of Alcohol and Drug Abuse Patient Records regulations: The Federal rules restrict any use of the information to criminally investigate or prosecute any alcohol or drug abuse patient.[facility] HospitalIn the event this information is protected by the Federal Confidentiality of Alcohol and Drug Abuse Patient Records regulations: The Federal rules restrict any use of the information to criminally investigate or prosecute any alcohol or drug abuse patient.[facility] HospitalIn the event this information is protected by the Federal Confidentiality of Alcohol and Drug Abuse Patient Records regulations: The Federal rules restrict any use of the information to criminally investigate or prosecute any alcohol or drug abuse patient.[facility] HospitalIn the event this information is protected by the Federal Confidentiality of Alcohol and Drug Abuse Patient Records regulations: The Federal rules restrict any use of the information to criminally investigate or prosecute any alcohol or drug abuse patient.[facility] HospitalIn the event this information is protected by the Federal Confidentiality of Alcohol and Drug Abuse Patient Records regulations: The Federal rules restrict any use of the information to criminally investigate or prosecute any alcohol or drug abuse patient.[facility] HospitalIn the event this information is protected by the Federal Confidentiality of Alcohol and Drug Abuse Patient Records regulations: The Federal rules restrict any use of the information to criminally investigate or prosecute any alcohol or drug abuse patient.[facility] HospitalIn the event this information is protected by the Federal Confidentiality of Alcohol and Drug Abuse Patient Records regulations: The Federal rules restrict any use of the information to criminally investigate or prosecute any alcohol or drug abuse patient.[facility] HospitalIn the event this information is protected by the Federal Confidentiality of Alcohol and Drug Abuse Patient Records regulations: The Federal rules restrict any use of the information to criminally investigate or prosecute any alcohol or drug abuse patient.[facility] HospitalIn the event this information is protected by the Federal Confidentiality of Alcohol and Drug Abuse Patient Records regulations: The Federal rules restrict any use of the information to criminally investigate or prosecute any alcohol or drug abuse patient.[facility] HospitalIn the event this information is protected by the Federal Confidentiality of Alcohol and Drug Abuse Patient Records regulations: The Federal rules restrict any use of the information to criminally investigate or prosecute any alcohol or drug abuse patient.[facility] HospitalIn the event this information is protected by the Federal Confidentiality of Alcohol and Drug Abuse Patient Records regulations: The Federal rules restrict any use of the information to criminally investigate or prosecute any alcohol or drug abuse patient.[facility] HospitalIn the event this information is protected by the Federal Confidentiality of Alcohol and Drug Abuse Patient Records regulations: The Federal rules restrict any use of the information to criminally investigate or prosecute any alcohol or drug abuse patient.[facility] HospitalIn the event this information is protected by the Federal Confidentiality of Alcohol and Drug Abuse Patient Records regulations: The Federal rules restrict any use of the information to criminally investigate or prosecute any alcohol or drug abuse patient.[facility] HospitalIn the event this information is protected by the Federal Confidentiality of Alcohol and Drug Abuse Patient Records regulations: The Federal rules restrict any use of the information to criminally investigate or prosecute any alcohol or drug abuse patient.[facility] HospitalIn the event this information is protected by the Federal Confidentiality of Alcohol and Drug Abuse Patient Records regulations: The Federal rules restrict any use of the information to criminally investigate or prosecute any alcohol or drug abuse patient.[facility] HospitalIn the event this information is protected by the Federal Confidentiality of Alcohol and Drug Abuse Patient Records regulations: The Federal rules restrict any use of the information to criminally investigate or prosecute any alcohol or drug abuse patient.[facility] HospitalIn the event this information is protected by the Federal Confidentiality of Alcohol and Drug Abuse Patient Records regulations: The Federal rules restrict any use of the information to criminally investigate or prosecute any alcohol or drug abuse patient.[facility] HospitalIn the event this information is protected by the Federal Confidentiality of Alcohol and Drug Abuse Patient Records regulations: The Federal rules restrict any use of the information to criminally investigate or prosecute any alcohol or drug abuse patient.[facility] HospitalIn the event this information is protected by the Federal Confidentiality of Alcohol and Drug Abuse Patient Records regulations: The Federal rules restrict any use of the information to criminally investigate or prosecute any alcohol or drug abuse patient.[facility] HospitalIn the event this information is protected by the Federal Confidentiality of Alcohol and Drug Abuse Patient Records regulations: The Federal rules restrict any use of the information to criminally investigate or prosecute any alcohol or drug abuse patient.[facility] HospitalIn the event this information is protected by the Federal Confidentiality of Alcohol and Drug Abuse Patient Records regulations: The Federal rules restrict any use of the information to criminally investigate or prosecute any alcohol or drug abuse patient.[facility] HospitalIn the event this information is protected by the Federal Confidentiality of Alcohol and Drug Abuse Patient Records regulations: The Federal rules restrict any use of the information to criminally investigate or prosecute any alcohol or drug abuse patient.[facility] HospitalIn the event this information is protected by the Federal Confidentiality of Alcohol and Drug Abuse Patient Records regulations: The Federal rules restrict any use of the information to criminally investigate or prosecute any alcohol or drug abuse patient.[facility] HospitalIn the event this information is protected by the Federal Confidentiality of Alcohol and Drug Abuse Patient Records regulations: The Federal rules restrict any use of the information to criminally investigate or prosecute any alcohol or drug abuse patient.[facility] HospitalIn the event this information is protected by the Federal Confidentiality of Alcohol and Drug Abuse Patient Records regulations: The Federal rules restrict any use of the information to criminally investigate or prosecute any alcohol or drug abuse patient.[facility] HospitalIn the event this information is protected by the Federal Confidentiality of Alcohol and Drug Abuse Patient Records regulations: The Federal rules restrict any use of the information to criminally investigate or prosecute any alcohol or drug abuse patient.[facility] HospitalIn the event this information is protected by the Federal Confidentiality of Alcohol and Drug Abuse Patient Records regulations: The Federal rules restrict any use of the information to criminally investigate or prosecute any alcohol or drug abuse patient.[facility] HospitalIn the event this information is protected by the Federal Confidentiality of Alcohol and Drug Abuse Patient Records regulations: The Federal rules restrict any use of the information to criminally investigate or prosecute any alcohol or drug abuse patient.[facility] HospitalIn the event this information is protected by the Federal Confidentiality of Alcohol and Drug Abuse Patient Records regulations: The Federal rules restrict any use of the information to criminally investigate or prosecute any alcohol or drug abuse patient.[facility] HospitalIn the event this information is protected by the Federal Confidentiality of Alcohol and Drug Abuse Patient Records regulations: The Federal rules restrict any use of the information to criminally investigate or prosecute any alcohol or drug abuse patient.[facility] HospitalIn the event this information is protected by the Federal Confidentiality of Alcohol and Drug Abuse Patient Records regulations: The Federal rules restrict any use of the information to criminally investigate or prosecute any alcohol or drug abuse patient.[facility] HospitalIn the event this information is protected by the Federal Confidentiality of Alcohol and Drug Abuse Patient Records regulations: The Federal rules restrict any use of the information to criminally investigate or prosecute any alcohol or drug abuse patient.[facility] HospitalIn the event this information is protected by the Federal Confidentiality of Alcohol and Drug Abuse Patient Records regulations: The Federal rules restrict any use of the information to criminally investigate or prosecute any alcohol or drug abuse patient.[facility] HospitalIn the event this information is protected by the Federal Confidentiality of Alcohol and Drug Abuse Patient Records regulations: The Federal rules restrict any use of the information to criminally investigate or prosecute any alcohol or drug abuse patient.[facility] HospitalIn the event this information is protected by the Federal Confidentiality of Alcohol and Drug Abuse Patient Records regulations: The Federal rules restrict any use of the information to criminally investigate or prosecute any alcohol or drug abuse patient.[facility] HospitalIn the event this information is protected by the Federal Confidentiality of Alcohol and Drug Abuse Patient Records regulations: The Federal rules restrict any use of the information to criminally investigate or prosecute any alcohol or drug abuse patient.[facility] HospitalIn the event this information is protected by the Federal Confidentiality of Alcohol and Drug Abuse Patient Records regulations: The Federal rules restrict any use of the information to criminally investigate or prosecute any alcohol or drug abuse patient.[facility] HospitalIn the event this information is protected by the Federal Confidentiality of Alcohol and Drug Abuse Patient Records regulations: The Federal rules restrict any use of the information to criminally investigate or prosecute any alcohol or drug abuse patient.[facility] HospitalIn the event this information is protected by the Federal Confidentiality of Alcohol and Drug Abuse Patient Records regulations: The Federal rules restrict any use of the information to criminally investigate or prosecute any alcohol or drug abuse patient.[facility] HospitalIn the event this information is protected by the Federal Confidentiality of Alcohol and Drug Abuse Patient Records regulations: The Federal rules restrict any use of the information to criminally investigate or prosecute any alcohol or drug abuse patient.[facility] HospitalIn the event this information is protected by the Federal Confidentiality of Alcohol and Drug Abuse Patient Records regulations: The Federal rules restrict any use of the information to criminally investigate or prosecute any alcohol or drug abuse patient.[facility] HospitalIn the event this information is protected by the Federal Confidentiality of Alcohol and Drug Abuse Patient Records regulations: The Federal rules restrict any use of the information to criminally investigate or prosecute any alcohol or drug abuse patient.[facility] HospitalIn the event this information is protected by the Federal Confidentiality of Alcohol and Drug Abuse Patient Records regulations: The Federal rules restrict any use of the information to criminally investigate or prosecute any alcohol or drug abuse patient.[facility] HospitalIn the event this information is protected by the Federal Confidentiality of Alcohol and Drug Abuse Patient Records regulations: The Federal rules restrict any use of the information to criminally investigate or prosecute any alcohol or drug abuse patient.[facility] HospitalIn the event this information is protected by the Federal Confidentiality of Alcohol and Drug Abuse Patient Records regulations: The Federal rules restrict any use of the information to criminally investigate or prosecute any alcohol or drug abuse patient.[facility] HospitalIn the event this information is protected by the Federal Confidentiality of Alcohol and Drug Abuse Patient Records regulations: The Federal rules restrict any use of the information to criminally investigate or prosecute any alcohol or drug abuse patient.[facility] HospitalIn the event this information is protected by the Federal Confidentiality of Alcohol and Drug Abuse Patient Records regulations: The Federal rules restrict any use of the information to criminally investigate or prosecute any alcohol or drug abuse patient.[facility] HospitalIn the event this information is protected by the Federal Confidentiality of Alcohol and Drug Abuse Patient Records regulations: The Federal rules restrict any use of the information to criminally investigate or prosecute any alcohol or drug abuse patient.[facility] HospitalIn the event this information is protected by the Federal Confidentiality of Alcohol and Drug Abuse Patient Records regulations: The Federal rules restrict any use of the information to criminally investigate or prosecute any alcohol or drug abuse patient.[facility] HospitalIn the event this information is protected by the Federal Confidentiality of Alcohol and Drug Abuse Patient Records regulations: The Federal rules restrict any use of the information to criminally investigate or prosecute any alcohol or drug abuse patient.[facility] HospitalIn the event this information is protected by the Federal Confidentiality of Alcohol and Drug Abuse Patient Records regulations: The Federal rules restrict any use of the information to criminally investigate or prosecute any alcohol or drug abuse patient.[facility] HospitalIn the event this information is protected by the Federal Confidentiality of Alcohol and Drug Abuse Patient Records regulations: The Federal rules restrict any use of the information to criminally investigate or prosecute any alcohol or drug abuse patient.[facility] HospitalIn the event this information is protected by the Federal Confidentiality of Alcohol and Drug Abuse Patient Records regulations: The Federal rules restrict any use of the information to criminally investigate or prosecute any alcohol or drug abuse patient.[facility]In the event this information is protected by the Federal Confidentiality of Alcohol and Drug Abuse Patient Records regulations: The Federal rules restrict any use of the information to criminally investigate or prosecute any alcohol or drug abuse patient.[facility]In the event this information is protected by the Federal Confidentiality of Alcohol and Drug Abuse Patient Records regulations: The Federal rules restrict any use of the information to criminally investigate or prosecute any alcohol or drug abuse patient.[facility] HospitalIn the event this information is protected by the Federal Confidentiality of Alcohol and Drug Abuse Patient Records regulations: The Federal rules restrict any use of the information to criminally investigate or prosecute any alcohol or drug abuse patient.[facility]In the event this information is protected by the Federal Confidentiality of Alcohol and Drug Abuse Patient Records regulations: The Federal rules restrict any use of the information to criminally investigate or prosecute any alcohol or drug abuse patient.[facility] HospitalIn the event this information is protected by the Federal Confidentiality of Alcohol and Drug Abuse Patient Records regulations: The Federal rules restrict any use of the information to criminally investigate or prosecute any alcohol or drug abuse patient.[facility]In the event this information is protected by the Federal Confidentiality of Alcohol and Drug Abuse Patient Records regulations: The Federal rules restrict any use of the information to criminally investigate or prosecute any alcohol or drug abuse patient.[facility]In the event this information is protected by the Federal Confidentiality of Alcohol and Drug Abuse Patient Records regulations: The Federal rules restrict any use of the information to criminally investigate or prosecute any alcohol or drug abuse patient.[facility]In the event this information is protected by the Federal Confidentiality of Alcohol and Drug Abuse Patient Records regulations: The Federal rules restrict any use of the information to criminally investigate or prosecute any alcohol or drug abuse patient.[facility]In the event this information is protected by the Federal Confidentiality of Alcohol and Drug Abuse Patient Records regulations: The Federal rules restrict any use of the information to criminally investigate or prosecute any alcohol or drug abuse patient.[facility]In the event this information is protected by the Federal Confidentiality of Alcohol and Drug Abuse Patient Records regulations: The Federal rules restrict any use of the information to criminally investigate or prosecute any alcohol or drug abuse patient.[facility]In the event this information is protected by the Federal Confidentiality of Alcohol and Drug Abuse Patient Records regulations: The Federal rules restrict any use of the information to criminally investigate or prosecute any alcohol or drug abuse patient.[facility]In the event this information is protected by the Federal Confidentiality of Alcohol and Drug Abuse Patient Records regulations: The Federal rules restrict any use of the information to criminally investigate or prosecute any alcohol or drug abuse patient.[facility]In the event this information is protected by the Federal Confidentiality of Alcohol and Drug Abuse Patient Records regulations: The Federal rules restrict any use of the information to criminally investigate or prosecute any alcohol or drug abuse patient.[facility]In the event this information is protected by the Federal Confidentiality of Alcohol and Drug Abuse Patient Records regulations: The Federal rules restrict any use of the information to criminally investigate or prosecute any alcohol or drug abuse patient.[facility]In the event this information is protected by the Federal Confidentiality of Alcohol and Drug Abuse Patient Records regulations: The Federal rules restrict any use of the information to criminally investigate or prosecute any alcohol or drug abuse patient.[facility]In the event this information is protected by the Federal Confidentiality of Alcohol and Drug Abuse Patient Records regulations: The Federal rules restrict any use of the information to criminally investigate or prosecute any alcohol or drug abuse patient.[facility] HospitalIn the event this information is protected by the Federal Confidentiality of Alcohol and Drug Abuse Patient Records regulations: The Federal rules restrict any use of the information to criminally investigate or prosecute any alcohol or drug abuse patient.[facility] HospitalIn the event this information is protected by the Federal Confidentiality of Alcohol and Drug Abuse Patient Records regulations: The Federal rules restrict any use of the information to criminally investigate or prosecute any alcohol or drug abuse patient.[facility] HospitalIn the event this information is protected by the Federal Confidentiality of Alcohol and Drug Abuse Patient Records regulations: The Federal rules restrict any use of the information to criminally investigate or prosecute any alcohol or drug abuse patient.[facility] HospitalIn the event this information is protected by the Federal Confidentiality of Alcohol and Drug Abuse Patient Records regulations: The Federal rules restrict any use of the information to criminally investigate or prosecute any alcohol or drug abuse patient.[facility] HospitalIn the event this information is protected by the Federal Confidentiality of Alcohol and Drug Abuse Patient Records regulations: The Federal rules restrict any use of the information to criminally investigate or prosecute any alcohol or drug abuse patient.[facility] HospitalIn the event this information is protected by the Federal Confidentiality of Alcohol and Drug Abuse Patient Records regulations: The Federal rules restrict any use of the information to criminally investigate or prosecute any alcohol or drug abuse patient.[facility] HospitalIn the event this information is protected by the Federal Confidentiality of Alcohol and Drug Abuse Patient Records regulations: The Federal rules restrict any use of the information to criminally investigate or prosecute any alcohol or drug abuse patient.[facility] HospitalIn the event this information is protected by the Federal Confidentiality of Alcohol and Drug Abuse Patient Records regulations: The Federal rules restrict any use of the information to criminally investigate or prosecute any alcohol or drug abuse patient.[facility] HospitalIn the event this information is protected by the Federal Confidentiality of Alcohol and Drug Abuse Patient Records regulations: The Federal rules restrict any use of the information to criminally investigate or prosecute any alcohol or drug abuse patient.[facility] HospitalIn the event this information is protected by the Federal Confidentiality of Alcohol and Drug Abuse Patient Records regulations: The Federal rules restrict any use of the information to criminally investigate or prosecute any alcohol or drug abuse patient.[facility] HospitalIn the event this information is protected by the Federal Confidentiality of Alcohol and Drug Abuse Patient Records regulations: The Federal rules restrict any use of the information to criminally investigate or prosecute any alcohol or drug abuse patient.[facility] HospitalIn the event this information is protected by the Federal Confidentiality of Alcohol and Drug Abuse Patient Records regulations: The Federal rules restrict any use of the information to criminally investigate or prosecute any alcohol or drug abuse patient.[facility] HospitalIn the event this information is protected by the Federal Confidentiality of Alcohol and Drug Abuse Patient Records regulations: The Federal rules restrict any use of the information to criminally investigate or prosecute any alcohol or drug abuse patient.[facility] HospitalIn the event this information is protected by the Federal Confidentiality of Alcohol and Drug Abuse Patient Records regulations: The Federal rules restrict any use of the information to criminally investigate or prosecute any alcohol or drug abuse patient.[facility] HospitalIn the event this information is protected by the Federal Confidentiality of Alcohol and Drug Abuse Patient Records regulations: The Federal rules restrict any use of the information to criminally investigate or prosecute any alcohol or drug abuse patient.[facility] HospitalIn the event this information is protected by the Federal Confidentiality of Alcohol and Drug Abuse Patient Records regulations: The Federal rules restrict any use of the information to criminally investigate or prosecute any alcohol or drug abuse patient.[facility] HospitalIn the event this information is protected by the Federal Confidentiality of Alcohol and Drug Abuse Patient Records regulations: The Federal rules restrict any use of the information to criminally investigate or prosecute any alcohol or drug abuse patient.[facility] HospitalIn the event this information is protected by the Federal Confidentiality of Alcohol and Drug Abuse Patient Records regulations: The Federal rules restrict any use of the information to criminally investigate or prosecute any alcohol or drug abuse patient.[facility] HospitalIn the event this information is protected by the Federal Confidentiality of Alcohol and Drug Abuse Patient Records regulations: The Federal rules restrict any use of the information to criminally investigate or prosecute any alcohol or drug abuse patient.[facility] HospitalIn the event this information is protected by the Federal Confidentiality of Alcohol and Drug Abuse Patient Records regulations: The Federal rules restrict any use of the information to criminally investigate or prosecute any alcohol or drug abuse patient.[facility] HospitalIn the event this information is protected by the Federal Confidentiality of Alcohol and Drug Abuse Patient Records regulations: The Federal rules restrict any use of the information to criminally investigate or prosecute any alcohol or drug abuse patient.[facility] HospitalIn the event this information is protected by the [facility] Confidentiality of Alcohol and Drug Abuse Patient Records regulations: The Federal rules restrict any use of the information to criminally investigate or prosecute any alcohol or drug abuse patient.[facility] HospitalIn the event this information is protected by the Federal Confidentiality of Alcohol and Drug Abuse Patient Records regulations: The Federal rules restrict any use of the information to criminally investigate or prosecute any alcohol or drug abuse patient.[facility] Care Teams (unrecognized sec tion and content) Pipe Stress Engineer Relationship Specialty Start Date End Date Julita Collins MD [address] [place] [address] PCP - General Internal Medicine 12/06/16 Pipe Stress Engineer Relationship Specialty Start Date End Date Julita Collins MD [address] [place], [place] [id number] PCP - General Internal Medicine 12/06/16 Pipe Stress Engineer Relationship Specialty Start Date End Date Julita Collins MD [address] [place], [place] [id number] PCP - General Internal Medicine 12/06/16 Pipe Stress Engineer Relationship Specialty Start Date End Date Julita Collins MD [address] [place] [address] PCP - General Internal Medicine 12/06/16 Pipe Stress Engineer Relationship Specialty Start Date End Date Julita Collins MD [address] [place] [address] PCP - General Internal Medicine 12/06/16 Pipe Stress Engineer Relationship Specialty Start Date End Date Julita Collins MD [address] [place] [address] PCP - General Internal Medicine 12/06/16 Pipe Stress Engineer Relationship Specialty Start Date End Date Julita Collins MD [address] [place] [address] PCP - General Internal Medicine 12/06/16 Pipe Stress Engineer Relationship Specialty Start Date End Date Julita Collins MD [address] [place] [address] PCP - General Internal Medicine 12/06/16 Pipe Stress Engineer Relationship Specialty Start Date End Date Julita Collins MD [address] [place] [address] PCP - General Internal Medicine 12/06/16 Pipe Stress Engineer Relationship Specialty Start Date End Date Julita Collins MD [address] [place] [address] PCP - General Internal Medicine 12/06/16 Pipe Stress Engineer Relationship Specialty Start Date End Date Julita Collins MD [address] [place] [address] PCP - General Internal Medicine 12/06/16 Pipe Stress Engineer Relationship Specialty Start Date End Date Julita Collins MD [address] [place] [address] PCP - General Internal Medicine 12/06/16 Pipe Stress Engineer Relationship Specialty Start Date End Date Julita Collins MD [address] [place] [address] PCP - General Internal Medicine 12/06/16 Pipe Stress Engineer Relationship Specialty Start Date End Date Julita Collins MD [address] [place] [address] PCP - General Internal Medicine 12/06/16 Pipe Stress Engineer Relationship Specialty Start Date End Date Julita Collins MD [address] [place] [address] PCP - General Internal Medicine 12/06/16 Pipe Stress Engineer Relationship Specialty Start Date End Date Julita Collins MD [address] [place] [address] PCP - General Internal Medicine 12/06/16 Pipe Stress Engineer Relationship Specialty Start Date End Date Julita Collins MD [address] [place] [address] PCP - General Internal Medicine 12/06/16 Pipe Stress Engineer Relationship Specialty Start Date End Date Julita Collins MD [address] [place] [address] PCP - General Internal Medicine 12/06/16 Pipe Stress Engineer Relationship Specialty Start Date End Date Julita Collins MD [address] [place] [address] PCP - General Internal Medicine 12/06/16 Team Status: Active Member Role Status Dates Dr. Julita Collins MD Family Provider Active Dr. Julita Collins MD Primary Care Provider Active Team Status: Inactive Member Role Status Dates Dr. Julita Collins MD Primary Care Provider Active Dr. Preston Neri MD Emergency Provider Active Pipe Stress Engineer Relationship Specialty Start Date End Date Julita Collins MD [address] [place] [address] PCP - General Internal Medicine 12/06/16 Pipe Stress Engineer Relationship Specialty Start Date End Date Julita Collins MD [address] [place] [address] PCP - General Internal Medicine 12/06/16 Pipe Stress Engineer Relationship Specialty Start Date End Date Julita Collins MD [address] [place] [address] PCP - General Internal Medicine 12/06/16 Pipe Stress Engineer Relationship Specialty Start Date End Date Julita Collins MD [address] [place] [address] PCP - General Internal Medicine 12/06/16 Pipe Stress Engineer Relationship Specialty Start Date End Date Julita Collins MD [address] [place] [address] PCP - General Internal Medicine 12/06/16 Pipe Stress Engineer Relationship Specialty Start Date End Date Julita Collins MD [address] [place] [address] PCP - General Internal Medicine 12/06/16 Team Status: Inactive Member Role Status Dates Dr. Julita Collins MD Primary Care Provider Active Dr. Preston Neri MD Attending Provider, Emergency Pr ovider Active Team Status: Inactive Member Role Status Dates Dr. Julita Collins MD Primary Care Provider Active Dr. Yoan Leal DO Emergency Provider Active Pipe Stress Engineer Relationship Specialty Start Date End Date Julita Collins MD [address] [place] [address] PCP - General Internal Medicine 12/06/16 Pipe Stress Engineer Relationship Specialty Start Date End Date Julita Collins MD [address] [place], [place] [address] PCP - General Internal Medicine 12/06/16 Pipe Stress Engineer Relationship Specialty Start Date End Date Julita Collins MD [address] [place] [address] PCP - General Internal Medicine 12/06/16 Pipe Stress Engineer Relationship Specialty Start Date End Date Julita Collins MD [address] [place] [address] PCP - General Internal Medicine 12/06/16 Pipe Stress Engineer Relationship Specialty Start Date End Date Julita Collins MD [address] [place] [address] PCP - General Internal Medicine 12/06/16 Pipe Stress Engineer Relationship Specialty Start Date End Date Julita Collins MD [address] [place] [address] PCP - General Internal Medicine 12/06/16 Pipe Stress Engineer Relationship Specialty Start Date End Date Julita Collins MD [address] [place] [address] PCP - General Internal Medicine 12/06/16 Pipe Stress Engineer Relationship Specialty Start Date End Date Julita Collins MD [address] [place] [address] PCP - General Internal Medicine 12/06/16 Pipe Stress Engineer Relationship Specialty Start Date End Date Julita Collins MD [address] [place] [address] PCP - General Internal Medicine 12/06/16 Pipe Stress Engineer Relationship Specialty Start Date End Date Julita Collins MD [address] [place] [address] PCP - General Internal Medicine 12/06/16 Pipe Stress Engineer Relationship Specialty Start Date End Date Julita Collins MD [address] [place] [address] PCP - General Internal Medicine 12/06/16 Pipe Stress Engineer Relationship Specialty Start Date End Date Julita Collins MD [address] [place] [address] PCP - General Internal Medicine 12/06/16 Pipe Stress Engineer Relationship Specialty Start Date End Date Julita Collins MD [address] [place] [address] PCP - General Internal Medicine 12/06/16 Pipe Stress Engineer Relationship Specialty Start Date End Date Julita Collins MD [address] [place] [address] PCP - General Internal Medicine 12/06/16 Pipe Stress Engineer Relationship Specialty Start Date End Date Julita Collins MD [address] [place] [address] PCP - General Internal Medicine 12/06/16 Pipe Stress Engineer Relationship Specialty Start Date End Date Julita Collins MD [address] [place] [address] PCP - General Internal Medicine 12/06/16 Pipe Stress Engineer Relationship Specialty Start Date End Date Julita Collins MD [address] [place] [address] PCP - General Internal Medicine 12/06/16 Pipe Stress Engineer Relationship Specialty Start Date End Date Julita Collins MD [address] [place] [address] PCP - General Internal Medicine 12/06/16 Team Status: Inactive Member Role Status Dates Dr. Julita Collins MD Primary Care Provider Active Dr. Kalia Matthews DO Emergency Provider Active Pipe Stress Engineer Relationship Specialty Start Date End Date Julita Collins MD [address] [place] [address] PCP - General Internal Medicine 12/06/16 Pipe Stress Engineer Relationship Specialty Start Date End Date Julita Collins MD [address] [place] [address] PCP - General Internal Medicine 12/06/16 Pipe Stress Engineer Relationship Specialty Start Date End Date Julita Collins MD [address] [place] [address] PCP - General Internal Medicine 12/06/16 Pipe Stress Engineer Relationship Specialty Start Date End Date Julita Collins MD [address] [place] [address] PCP - General Internal Medicine 12/06/16 Pipe Stress Engineer Relationship Specialty Start Date End Date Julita Collins MD [address] [place] [address] PCP - General Internal Medicine 12/06/16 Pipe Stress Engineer Relationship Specialty Start Date End Date Julita Collins MD [address] [place] [address] PCP - General Internal Medicine 12/06/16 Pipe Stress Engineer Relationship Specialty Start Date End Date Julita Collins MD [address] [place] [address] PCP - General Internal Medicine 12/06/16 Team Status: Inactive Member Role Status Dates Dr. Julita Collins MD Primary Care Provider Active Dr. Kalia Matthews DO Attending Provider, Atif vila Active Team Status: Inactive Member Role Status Dates Dr. Julita Collins MD Primary Care Provider Active Dr. Trey Carey , Emergency Provider Active Pipe Stress Engineer Relationship Specialty Start Date End Date Julita Collins MD [address] [place] [address] PCP - General Internal Medicine 12/06/16 Pipe Stress Engineer Relationship Specialty Start Date End Date Julita Collins MD [address] [place] [address] PCP - General Internal Medicine 12/06/16 Pipe Stress Engineer Relationship Specialty Start Date End Date Julita Collins MD [address] [place] [address] PCP - General Internal Medicine 12/06/16 Pipe Stress Engineer Relationship Specialty Start Date End Date Julita Collins MD [address] [place] [address] PCP - General Internal Medicine 12/06/16 Pipe Stress Engineer Relationship Specialty Start Date End Date Julita Collins MD [address] [place] [address] PCP - General Internal Medicine 12/06/16 Pipe Stress Engineer Relationship Specialty Start Date End Date Julita Collins MD [address] [place] [address] PCP - General Internal Medicine 12/06/16 Pipe Stress Engineer Relationship Specialty Start Date End Date Julita Collins MD [address] [place] [address] PCP - General Internal Medicine 12/06/16 Lavonne Seay PA-C [address] [place] [address] Coal Chute Worker Family Medicine 03/15/24 Eliana Curtis APRN.FIRE TENDER [address] [place] [address] Coal Chute Worker Internal Medicine 03/15/24 Lisa Oneill PA-C [address] [place] [address] Coal Chute Worker Family Medicine 03/15/24 Pipe Stress Engineer Relationship Specialty Start Date End Date Julita Collins MD [address] [place] [address] PCP - General Internal Medicine 12/06/16 Lavonne Seay PA-C [address] [place] [address] Coal Chute Worker Family Medicine 03/15/24 Eliana Curtis APRN.FIRE TENDER [address] [place] [address] Coal Chute Worker Internal Medicine 03/15/24 Lisa Oneill PA-C [address] [place] [address] Coal Chute Worker Family Medicine 03/15/24 Pipe Stress Engineer Relationship Specialty Start Date End Date Julita Collins MD [address] [place] [address] PCP - General Internal Medicine 12/06/16 Eliana Curtis APRN.FIRE TENDER [address] [place] [address] Coal Chute Worker Internal Medicine 03/15/24 Team Status: Active Member Role Status Dates Dr. Julita Collins MD Primary Care Provider Active Team Status: Inactive Member Role Status Dates Dr. Julita Collins MD Primary Care Provider Active Start: April 15, 2024 End: April 15, 2024 Dr. Julita Collins MD Referring Provider Active Start: April 15, 2024 End: April 15, 2024 Jeannette Horvath CAR RUNNER-C Attending Provider Active Start: April 15, 2024 End: April 15, 2024 Team Status: Inactive Member Role Status Dates Dr. Julita Collins MD Primary Care Provider Active Start: June 08, 2024 End: June 08, 2024 Jeannette Horvath CAR RUNNER-C Attending Provider Active Start: June 08, 2024 End: June 08, 2024 Jeannette Horvath CAR RUNNER-C Referring Provider Active Start: June 08, 2024 End: June 08, 2024 Team Status: Active Member Role Status Dates Dr. Julita Collins MD Primary Care Provider Active Start: June 16, 2024 Jeannette Horvath CAR RUNNER-C Attending Provider Active Start: June 16, 2024 Jeannette Horvath CAR RUNNER-C Referring Provider Active Start: June 16, 2024 Team Status: Inactive Member Role Status Dates Dr. Julita Collins MD Primary Care Provider Active Start: June 17, 2024 End: June 17, 2024 Dr. Julita Collins MD Referring Provider Active Start: June 17, 2024 End: June 17, 2024 Jeannette Horvath CAR RUNNER-C Attending Provider Active Start: June 17, 2024 End: June 17, 2024 Team Status: Inactive Member Role Status Dates Dr. Julita Collins MD Primary Care Provider Active Start: June 16, 2024 End: June 16, 2024 Jeannette Horvath CAR RUNNER-C Attending Provider Active Start: June 16, 2024 End: June 16, 2024 Jeannette Horvath CAR RUNNER-C Referring Provider Active Start: June 16, 2024 End: June 16, 2024 Pipe Stress Engineer Relationship Specialty Start Date End Date Julita Collins MD [address] [place] [address] PCP - General Internal Medicine 12/06/16 Eliana Curtis APRN.FIRE TENDER [address] [facility] [place] [address] Coal Chute Worker Internal Medicine 03/15/24 Pipe Stress Engineer Relationship Specialty Start Date End Date Julita Collins MD [address] [facility] [place] [address] PCP - General Internal Medicine 12/06/16 Eliana Curtis APRN.FIRE TENDER [address] [facility] [place] [address] Coal Chute Worker Internal Medicine 03/15/24 Pipe Stress Engineer Relationship Specialty Start Date End Date Julita Collins MD [address] [facility] [place] [address] PCP - General Internal Medicine 12/06/16 Eliana Curtis APRN.FIRE TENDER [address] [place] [address] Coal Chute Worker Internal Medicine 03/15/24 Pipe Stress Engineer Relationship Specialty Start Date End Date Julita Collins MD [address] [facility] [place] [address] PCP - General Internal Medicine 12/06/16 Eliana Curtis APRN.FIRE TENDER [address] [place] [address] Coal Chute Worker Internal Medicine 03/15/24 Team Status: Inactive Member Role Status Dates Dr. Julita Collins MD Primary Care Provider Active Start: July 20, 2024 End: July 20, 2024 Dr. Julita Collins MD Referring Provider Active Start: July 20, 2024 End: July 20, 2024 Jeannette Horvath NP-C Attending Provider Active Start: July 20, 2024 End: July 20, 2024 Team Status: Inactive Member Role Status Dates Dr. Julita Collins MD Primary Care Provider Active Start: July 23, 2024 End: July 23, 2024 Jeannette Horvath CAR RUNNER-C Attending Provider Active Start: July 23, 2024 End: July 23, 2024 Jeannette Horvath CAR RUNNER-C Referring Provider Active Start: July 23, 2024 End: July 23, 2024 Team Status: Active Member Role Status Dates Dr. Julita Collins MD Primary Care Provider Active Start: July 25, 2024 Jeannette Horvath CAR RUNNER-C Attending Provider Active Start: July 25, 2024 Jeannette Horvath NP-C Referring Provider Active Start: July 25, 2024 Pipe Stress Engineer Relationship Specialty Start Date End Date Julita Collins MD [address] [facility] [place] [address] PCP - General Internal Medicine 12/06/16 Eliana Curtis APRN.FIRE TENDER [address] [facility] [place] [address] Coal Chute Worker Internal Medicine 03/15/24 Pipe Stress Engineer Relationship Specialty Start Date End Date Julita Collins MD [address] [facility] [place] [address] PCP - General Internal Medicine 12/06/16 Eliana Curtis APRN.FIRE TENDER [address] [facility] [place] [address] Coal Chute Worker Internal Medicine 03/15/24 Team Status: Inactive Member Role Status Dates Dr. Julita Collins MD Primary Care Provider Active Start: July 25, 2024 End: July 25, 2024 Jeannette Horvath , CAR RUNNER-C Attending Provider Active Start: July 25, 2024 End: July 25, 2024 Jeannette Alexandru , CAR RUNNER-C Referring Provider Active Start: July 25, 2024 End: July 25, 2024 Team Status: Inactive Member Role Status Dates Dr. Julita Collins MD Primary Care Provider Active Start: August 07, 2024 End: August 07, 2024 Jeannette Horvath , CAR RUNNER-C Attending Provider Active Start: August 07, 2024 End: August 07, 2024 Jeannette Horvath , CAR RUNNER-C Referring Provider Active Start: August 07, 2024 End: August 07, 2024 Team Status: Inactive Member Role Status Dates Dr. Julita Collins MD Primary Care Provider Active Start: August 17, 2024 End: August 17, 2024 Dr. Julita Collins MD Referring Provider Active Start: August 17, 2024 End: August 17, 2024 Jeannette Horvath , CAR RUNNER-C Attending Provider Active Start: August 17, 2024 End: August 17, 2024 Team Status: Inactive Member Role Status Dates Dr. Julita Collins MD Primary Care Provider Active Start: August 18, 2024 End: August 18, 2024 Jeannette Horvath , CAR RUNNER-C Attending Provider Active Start: August 18, 2024 End: August 18, 2024 Jeannette Horvath , CAR RUNNER-C Referring Provider Active Start: August 18, 2024 End: August 18, 2024 Team Status: Inactive Member Role Status Dates Dr. Julita Collins MD Primary Care Provider Active Start: September 14, 2024 End: September 14, 2024 Dr. Julita Collins MD Referring Provider Active Start: September 14, 2024 End: September 14, 2024 Dr. Pablo Jackson MD Attending Provider Active Start: September 14, 2024 End: September 14, 2024 Team Status: Active Member Role Status Dates Dr. Julita Collins MD Primary Care Provider Active Start: September 14, 2024 Dr. Mak Zhou DC Attending Provider Active Start: September 14, 2024 Dr. Mak Zhou DC Referring Provider Active Start: September 14, 2024 Team Status: Inactive Member Role Status Dates Dr. Julita Collins MD Primary Care Provider Active Start: September 14, 2024 End: September 14, 2024 Dr. Mak Zhou DC Attending Provider Active Start: September 14, 2024 End: September 14, 2024 Dr. Mak Zhou DC Referring Provider Active Start: September 14, 2024 End: September 14, 2024 Pipe Stress Engineer Relationship Specialty Start Date End Date Julita Collins MD [address] [facility] [place] [address] PCP - General Internal Medicine 12/06/16 Eliana Curtis, ACCOUNT ADVISOR.FIRE TENDER [address] [facility] [place] [address] Coal Chute Worker Internal Medicine 03/15/24 Pipe Stress Engineer Relationship Specialty Start Date End Date Julita Collins MD [address] [facility] [place] [address] PCP - General Internal Medicine 12/06/16 Eliana Curtis, ACCOUNT ADVISOR.FIRE TENDER [address] [place] [address] Coal Chute Worker Internal Medicine 03/15/24 Pipe Stress Engineer Relationship Specialty Start Date End Date Julita Collins MD [address] [facility] [place] [address] PCP - General Internal Medicine 12/06/16 Eliana Curtis, ACCOUNT ADVISOR.FIRE TENDER [address] [place] [address] Coal Chute Worker Internal Medicine 03/15/24 Pipe Stress Engineer Relationship Specialty Start Date End Date Julita Collins MD [address] [facility] [place] [address] PCP - General Internal Medicine 12/06/16 Eliana Curtis APRN.FIRE TENDER [address] [place] [address] Coal Chute Worker Internal Medicine 03/15/24 Pipe Stress Engineer Relationship Specialty Start Date End Date Julita Collins MD [address] [place] [address] PCP - General Internal Medicine 12/06/16 Eliana Curtis APRN.FIRE TENDER [address] [place], [place] [address] Coal Chute Worker Internal Medicine 03/15/24 Reason for Visit (unrecogniz ed section and content) Reason Comments PT Discharge Specialty Diagnoses / Procedures Referred By Contac t Referred To Contact PHYSICAL THERAPY Diagnoses Traumatic coccydynia Status post fall Procedures PT REHAB FOLLOW UP ORDER THERAPEUTIC EXERCISES RE, EA 15 MIN. Lashay Lara, PT Pt [facility] [address] [place] [address] Referral ID Status Reason Start Date Expiration Date Visits Requested Visits Authorized [id number] Authorized PCP Requested Referral Auto-Generate d Referral 05/29/2023 08/27/2023 12 12 Reason Comments Physical Therapy Specialty Diagnoses / Procedures Referred By Contac t Referred To Contact [facility] Diagnoses Traumatic coccydynia Status post fall Procedures PT REHAB FOLLOW UP ORDER THERAPEUTIC EXERCISES RE, EA 15 MIN. Lashay Lara, PT [facility] [address] [place] [address] Specialty Diagnoses / Procedures Referred By Contac t Referred To Contact [facility] Diagnoses Right wrist pain Procedures CONSULT TO PHYSICAL THERAPY PHYSICAL THERAPY EVALUATION HIGH COMPLEX 45 MINS Lavonne Seay PA-C [address] [place] [address] [facility] [address] [place] [id number] Referral ID Status Reason Start Date Expiration Date Visits Requested Visits Authorized [id number] Authorized Auto-Generat ed Referral 07/07/2022 04/07/2023 30 30 Reason Comments PT Progress Note Specialty Diagnoses / Procedures Referred By Contac t Referred To Contact [facility] Diagnoses Acute pain of right shoulder Procedures CONSULT TO PHYSICAL THERAPY PHYSICAL THERAPY EVALUATION HIGH COMPLEX 45 MINS Older, MAGY MonroyN.FIRE TENDER [address] [place] [address] [facility] [address] [place] [id number] Referral ID Status Reason Start Date Expiration Date Visits Requested Visits Authorized [id number] Authorized Auto-Generat ed Referral 07/07/2022 04/07/2023 30 30 Reason Comments PT Eval Specialty Diagnoses / Procedures Referred By Contac t Referred To Contact PHYSICAL THERAPY Diagnoses Acute pain of left knee Acute hip pain, left Procedures CONSULT TO PHYSICAL THERAPY PHYSICAL THERAPY EVALUATION HIGH COMPLEX 45 MINS THERAPEUTIC EXERCISES RE, EA 15 MIN. Lavonne Seay PA-C [address] [place] [address] Pt [facility] [address] [place] [address] Referral ID Status Reason Start Date Expiration Date V isits Requested Visits Authorized [id number] Authorized 12/12/2022 04/07/2023 30 30 Specialty Diagnoses / Procedures Referred By Contac t Referred To Contact [facility] Diagnoses Acute pain of left knee Acute hip pain, left Procedures CONSULT TO PHYSICAL THERAPY PHYSICAL THERAPY EVALUATION HIGH COMPLEX 45 MINS THERAPEUTIC EXERCISES RE, EA 15 MIN. Lavonne Seay PA-C [address] [place] [address] [facility] [address] [address] Specialty Diagnoses / Procedures Referred By Contac t Referred To Contact [facility] Diagnoses Special screening for malignant neoplasms, colon Procedures COLONOSCOPY SCREENING COLONOSCOPY FLX DX W/COLLJ SPEC WHEN Julita Sparks MD [address] [place] [address] [facility] [place] [address] Referral ID Status Reason Start Date Expiration Date Visits Requested Visits Authorized [id number] Authorized Auto-Generate d Referral Patient Cleared - Qualified 100% FAS 09/21/2021 12/20/2021 99 99 Reason Comments tailbone pain fell 2 weeks ago Reason Comments Refill Request Reason Comments Trauma left ankle sprain x 1 day Reason Comments Patient Update Reason Comments Pain Pt reported fall at home while walking dog, x3 wks prior (LT) ankle pain rated 8 Specialty Diagnoses / Procedures Referred By Contac t Referred To Contact Internal Medicine / URGENT CARE CLINIC Diagnoses recheck on L knee from fall 1 wk ago Procedures URGENT CARE [facility] [address] [place] [address] Referral ID Status Reason Start Date Expiration Date Visits Requested Visits Authorized [id number] Authorized Patient Cleared - Qualified 100% FAS 06/22/2021 09/20/2021 99 99 Reason Comments Ankle Pain L ankle pain x1 karine h Specialty Diagnoses / Procedures Referred By Contac t Referred To Contact Internal Medicine / URGENT CARE CLINIC Diagnoses recheck on L knee from fall 1 wk ago Procedures URGENT CARE [facility] [address] [place] [address] Reason Comments Blood Pressure Check Reason Comments ED Follow-up Reason Comments Pain Reason Comments Recheck rib pain from a fall Specialty Diagnoses / Procedures Referred By Contac t Referred To Contact Diagnoses visit Procedures visit Julita Collins MD [address] [place] [address] [facility] Dept Referral ID Status Reason Start Date Expiration Date Visits Requested Visits Authorized [id number] Authorized Financial Clearance Required - Self Pay Patient Cleared - Qualified 100% FAS 12/18/2021 03/18/2022 99 99 Reason Comments Pain Right side rib pain, fell last night Reason Comments Physical also c/o fell 04/14/22 seen in urgent care Specialty Diagnoses / Procedures Referred By Contac t Referred To Contact Diagnoses visit Procedures visit Julita Collins MD [address] [place] [address] [facility] Dept Referral ID Status Reason Start Date Expiration Date V isits Requested Visits Authorized [id number] Closed Financial Clearance Required - Self Pay Patient Cleared - Qualified 100% FAS 12/18/2021 03/18/2022 99 99 Reason Comments Pain Pt reported Hx fall 04/13/2022, ongoing (RT) rib pain rated 10. Reason Onset Date Comments Refill Request 05/05/2022 Reason Comments Recheck Fell 04/13, still expe riencing rib pain Specialty Diagnoses / Procedures Referred By Contac t Referred To Contact [facility] Department Diagnoses Consult Procedures Consult Self [facility] Dept Referral ID Status Reason Start Date Expiration Date Visits Requested Visits Authorized [id number] Authorized Patient Cleared - Qualified 100% FAS 03/16/2022 06/14/2022 99 99 Reason Comments urinary symptoms Reason Comments Flank Pain Flank pain x 4 days Specialty Diagnoses / Procedures Referred By Contac t Referred To Contact Diagnoses Urinary frequency Flank pain Procedures OFFICE CONSULTATION NEW/ESTAB PATIENT 15 MIN Older, CARA Monroy.GERHARD [address] [place] [address] [facility] Referral ID Status Reason Start Date Expiration Date Visits Requested Visits Authorized [id number] Authorized Patient Cleared - Qualified 100% FAS 05/30/2022 08/28/2022 99 99 Reason Onset Date Comments Refill Request 06/02/2022 Reason Comments Same Day Appointment rib pain right side x 1 month Specialty Diagnoses / Procedures Referred By Contac t Referred To Contact [facility] Department Diagnoses Consult [facility] Reason Onset Date Comments Refill Request 08/14/2022 Reason Comments Shoulder Injury R shoulder injury fr om fall, seen in ER 08/13 Reason Onset Date Comments EMG 09/07/2022 Specialty Diagnoses / Procedures Referred By Robin t Referred To Contact [facility] Diagnoses Carpal tunnel syndrome on both sides Procedures EMG(NEURO/NI) NERVE CONDUCTION STUDIES 9-10 STUDIES NERVE CONDUCTION STUDIES 11-12 STUDIES NERVE CONDUCTION STUDIES 5-6 STUDIES NEEDLE EMG NONEXTREMTY MSCLES W/NERVE CONDUCTION NEEDLE EMG EA EXTREMTY W/PARASPINL AREA COMPLETE NEEDLE EMG EA EXTREMITY W/PARASPINL AREA LIMITED NEEDLE EMG LMTD STD MUSC 1 XTR/NON-LIMB UNI/BI NDL EMG 1 XTR W/WO RELATED PARASPINAL AREAS Julita Collins MD [address] [place] [address] [facility] [address] [place] [address] Referral ID Status Reason Start Date Expiration Date V isits Requested Visits Authorized [id number] Closed Auto-Generate d Referral 08/23/2022 04/07/2023 1 1 Reason Comments Results Reason Comments Follow Up discuss test results -emg Reason Comments EMG results Reason Comments Recheck R shoulder follow up Reason Onset Date Comments Refill Request 11/05/2022 Reason Onset Date Comments Refill Request 11/08/2022 Reason Comments New Specialty Diagnoses / Procedures Referred By Contahmet t Referred To Contact Orthopedics Diagnoses Carpal tunnel syndrome on both sides Procedures CONSULT TO ORTHOPAEDICS OFFICE/OUTPATIENT [facility] MDM 60-74 MINUTES Julita Collins MD [address] [place] [address] Referral ID Status Reason Start Date Expiration Date Visits Requested Visits Authorized [id number] Pending Review PCP Requested Referral 09/10/2022 09/10/2023 1 1 Reason Comments Same Day Appointment left hip and knee p ain since October 26 fall from dog pulling her down Reason Onset Date Comments Refill Request 12/16/2022 Reason Comments Follow Up left knee pain 08/15 sore last therapy appt Saturday Reason Comments Recheck Reason Comments ED Follow-up fell on right wrist- compressed bone, [facility] 01/17/23, same fall hit head went yesterday for concussion Reason Comments referral for colonoscopy Reason Comments Consult Altered bowel habits Specialty Diagnoses / Procedures Referred By Contac t Referred To Contact General Surgery Diagnoses Altered bowel habits Procedures CONSULT TO GENERAL SURGERY OFFICE/OUTPATIENT [facility] MDM 60-74 MINUTES Lavonne Seay PA-C [address] [place] [address] Referral ID Status Reason Start Date Expiration Date Visits Requested Visits Authorized [id number] Pending Review PCP Requested Referral 02/04/2024 1 1 Reason Comments 04/18/2023 COLON LODI Patient Question Reason Comments Same Day Appointment fell April and fx tailbone pain is 12/16 Reason Comments PT Eval Specialty Diagnoses / Procedures Referred By Contac t Referred To Contact [facility] Diagnoses Traumatic coccydynia Status post fall Procedures CONSULT TO PHYSICAL THERAPY PHYSICAL THERAPY EVALUATION HIGH COMPLEX 45 MINS Lavonne Seay PA-C [address] [place] [address] [facility] [address] [place] [address] Referral ID Status Reason Start Date Expiration Date V isits Requested Visits Authorized [id number] Closed Auto-Generate d Referral 04/08/2023 04/07/2024 1 1 Reason Comments Follow Up from fall on ice Reason Comments Yearly Exam Reason Onset Date Comments Refill Request 07/08/2023 Reason Comments Follow Up Reason Comments Information Reason Comments Blood Pressure Clinical Update Reason Comments Recheck BP follow up Reason Comments Blood Pressure Reason Comments Life time handicap placard Reason Comments 2 Step TB Test Reason Comments Cough Reason Onset Date Comments Refill Request 06/08/2024 Reason Comments Recheck Blood Pressure Check Reason Comments Orders Xray knee Reason Onset Date Comments Refill Request 09/17/2024 Orders 09/17/2024 Reason Onset Date Comments Refill Request 09/28/2024 Reason Onset Date Comments Refill Request 09/29/2024 Goals (unrecognized section and content) Goals may be documented in a n alternate section INFORMATION SOURCE (unrecogn ized section and content) DATE CREATED AUTHOR 04/20/2023 [facility] ([place]) DATE CREATED AUTHOR AUTHOR'S ORGANIZ ATION 05/01/2023 [facility] DATE CREATED AUTHOR AUTHOR'S ORGANIZ ATION 09/19/2024 [facility] DATE CREATED AUTHOR AUTHOR'S ORGANIZ ATION 09/21/2024 [facility] FOR RECORDS PERTAINING TO PATIENTS WHO ARE OR HAVE BEEN ENROLLED IN A CHEMICAL DEPENDENCY/SUBSTANCEABUSE PROGRAM, SOME INFORMATION MAY BE OMITTED. This clinical summary was aggregated from multiple sources. Caution should be exercised in using it in the provision of clinical care. This summary normalizes information from multiple sources, and as a consequence, information in this document may materially change the coding, format and clinical context of patient data. In addition, data may be omitted in some cases. CLINICAL DECISIONS SHOULD BE BASED ON THE PRIMARY CLINICAL RECORDS. [employer] provides no warranty or guarantee of the accuracy or completeness of information in this document.
== END | disposition home or self-care (01) ==
LOC: CT 06:40
PROVIDERS: PCP Internal Medicine; Referring Provider Nurse Practitioner Acute Care; Visit Provider Nurse Practitioner Acute Care
DX: R10.9 Unspecified abdominal pain (principal); R15.2 Fecal urgency; R19.7 Diarrhea, unspecified; R15.9 Full incontinence of feces
CPT/HCPCS: 74177; Q9967

== ENCOUNTER 2024-10-26 10:18 | Day surgery (SDC) | payer MEDICAID, SELFPAY ==
[2024-10-26] VITALS (8 sets, daily range): BP systolic 110–200; BP diastolic 60–98; PULSE 70–84; RESP 12–16; TEMP 36.6–37; O2SAT 91–100; BMI 33.8
[2024-10-26] MEDS: Lactated Ringers 1,000 ML 15 ML IV (10:45)
--- NOTE | 2024-10-26 11:01 | PRE.ANES_ITS ---
ASA Classification* ASA Classification ASA Classification: 2 Assessment & Plan Anesthesia* Anesthesia Assessment Anesthesia Assessment: Discussed sedation and/or anesthesia options, risks, benefits, and alternatives with patient/parents/legal guardian/POA. Questions invited. The patient/parents/legal guardian/POA seems to understand and agrees to proceed with anesthesia plan. Reviewed the physical assessment, medical history, allergy history and patient home medications list prior to surgery/procedure/anesthetic and documented any changes. Performed airway and anesthesia risk assessments. Anesthesia Type Anesthesia Type: MAC History Source History Obtained from:: Patient and Chart Anesthesia Focused Assessment* Temperature: 98 F Pulse Rate: 70 Blood Pressure: 200/98 Respiratory Rate: 16 Pulse Ox: 100 Oxygen Delivery Method: Room Air Airway Assessment Mouth opens: >3 cm Mallampati Score: IV Teeth Condition: Intact Neck Range of motion (ROM): Full ROM Labs Anesthesia Preop lab: CBC WBC 7.4 K/mm3 (4.4-11.0) 08/18/24 07:19 08/18/24 RBC 4.95 M/mm3 (4.2-5.4) 08/18/24 07:19 08/18/24 Hgb 13.9 g/dL (12.0-15.0) 08/18/24 07:19 08/18/24 Hct 42.4 % (37-47) 08/18/24 07:19 08/18/24 Plt Count 342 K/mm3 (150-450) 08/18/24 07:19 08/18/24 CHEMISTRY Potassium 4.2 mmol/L (3.3-5.1) 08/18/24 07:19 08/18/24 Sodium 141 mmol/L (133-145) 08/18/24 07:19 08/18/24 Magnesium 2.0 mg/dL (1.8-2.4) 04/15/16 08:16 04/15/16 BUN 12 mg/dL (4-19) 08/18/24 07:19 08/18/24 Creatinine 0.68 mg/dL (0.70-1.20) L 08/18/24 07:19 Glucose 117 mg/dL (70-99) H 08/18/24 07:19 08/18/24 POC Glucose 157 mg/dL (70-110) H 06/17/13 22:28 06/17/13 TSH 2.050 uIU/mL (0.358-3.740) 01/06/24 08:33 12/09 COAG PT 13.0 SECONDS (11.7-14.9) 08/18/24 07:19 Urine Test Negative Negative 08/27/14 22:08 08/27/14 Pre-Assessment Diagnosis/Proposed Procedure Planned Operative Procedure(s): EGD/FLEXIBLE SIGMOID Anesthesia History Anesthesia History - medical assistant prn: Anesthesia History - medical assistant prn Hx Hospitalization No 10/22/24 15:41 Any Problems With Anesthesia Yes: N,V 10/22/24 15:41 Cholinesterase deficiency No 10/22/24 15:41 You/Your Family Experience No 10/22/24 15:41 fever (hyperthermia) with Relationship Recent Exposure to Contagious No 10/26/24 10:40 Disease Does patient have nerve No 10/22/24 15:41 stimulator Patient instructed to have device shut off --Does patient have Pacemaker No 10/26/24 10:40 or ICD? When Was Last Pacemaker Check QUESTION #4 FULL TEXT: You/Your Family Experience fever (hyperthermia) with Anesthesia Last Oral Intake Last Oral intake: Last Oral Intake NPO since 06:00 10/26/24 10:40 Meds taken in AM with sips of Yes 10/26/24 10:40 water? Meds patient instructed to take am of surgery Any additional information?: Yes Meds taken in AM with sips of water?: Yes PONV PONV - medical assistant prn: PONV - medical assistant prn Female Yes 10/22/24 15:41 HX of Motion Sickness No 10/22/24 15:41 HX of N/V After Surgery No 10/22/24 15:41 Non-Smoker Yes 10/22/24 15:41 Duration of Surgery greater No 10/22/24 15:41 than 60 minutes Number of Risk Factors 2 10/22/24 15:41 PONV Score Moderate Risk 10/22/24 15:41 Height & Weight Height & Weight: Anesthesia: Height & Weight Height 5 ft 3 in 10/26/24 10:40 Weight: 86.7 kg 10/26/24 10:40 Body Mass Index (BMI) 33.8 10/26/24 10:40 Respiratory Assessment Respiratory Assessment - medical assistant prn: Respiratory Tract Infection Hx - medical assistant prn Hx Respiratory Tract Infection No 10/22/24 15:41 Any additional information?: Yes Hx Respiratory Tract Infection: Yes (Patient has had a cough for the past couple days.) STOP Sleep Apnea STOP Sleep Apnea - medical assistant prn: STOP Sleep Apnea - medical assistant prn Hx Hypertension Yes: NOT WELL CONTROLLED 10/22/24 15:41 WITH MED PER PATIENT Hx Sleep Apnea No 10/22/24 15:41 CPAP No 10/22/24 15:41 BIPAP No 10/22/24 15:41 Do you snore loudly (louder No 10/22/24 15:41 than talking or can be heard Do you often feel tired/ Yes 10/22/24 15:41 fatigued/ sleepy during daytime? Has anyone observed you stop No 10/22/24 15:41 breathing during sleep? STOP Results Positive 10/22/24 15:41 QUESTION #5 FULL TEXT : Do you snore loudly (louder than talking or can be heard through closed doors)? Tobacco Use History Tobacco Use History - medical assistant prn: Tobacco Use History - medical assistant prn Tobacco Use Smoking Status Former smoker 10/22/24 15:41 Hx Tobacco Use No 10/22/24 15:41 Years Smoking Packs Smoked per Day Smoking Cessation Date was No - quit smoking greater 10/22/24 15:41 within the last 15 years than 15 years ago Hx Smoking Cessation Date 11/06/94 10/22/24 15:41 Hx Smoking Cessation No 10/22/24 15:41 Counseling Hematologic Medial History Hematologic Hx - medical assistant prn: Hematologic Medical Hx - engineering documentation specialist Hx of Blood Transfusion No 10/22/24 15:41 Hx of Transfusion in last 3 No 10/22/24 15:41 Months Date of Last Transfusion (if within last 3 months) Ever experience any problems No 10/22/24 15:41 with transfusion(s)? Specify any problems Hx of Preganancy in last 3 No 10/22/24 15:41 Months Nurse Filling Out Transfusion DSCHRIBER 10/22/24 15:41 & Questions: Date: 10/22/24 10/22/24 15:41 Time: 15:43 10/22/24 15:41 Patient unable to answer at this time (ie. confused, unrespo /Reproduction History /Reproductive History - medical assistant prn: /Reproductive Hx- medical assistant prn Hx Now No 10/22/24 15:41 Gestational Age (in weeks): EDC: Hx Hx Para Hx Section SAB No 10/22/24 15:41 Active Medications Active Medications: Current Medications Generic Name Dose Route Start Last Admin Trade Name Freq PRN Reason Stop Dose Admin Lactated Ringer's 1,000 mls @ 15 mls/hr 10/26/24 10:30 10/26/24 10:45 IV 15 mls/hr .Q48H JULY Administration PFSH Medical History Depression Anxiety Arthritis Fatty liver Back pain Injury of head and neck TIA (transient ischemic attack) Syncope Difficulty swallowing Gastric reflux Shortness of breath on exertion Former smoker Leg cramps History of pain when walking History of echocardiogram History of stress test Cardiology follow-up encounter Hypertension Home Medications ?Medication ?Instructions ?Recorded ?Last Taken ?Type metoprolol succinate 100 mg 100 mg PO QHS 08/13/22 History capsule sprinkle, ext. release 24 hr cholecalciferol (vitamin D3) 1,250 1,250 mcg PO QWEEK 01/06/24 Unknown History mcg (50,000 unit) capsule losartan 100 mg tablet 100 mg PO QDAY 01/06/2410/07 History sertraline 50 mg tablet (Zoloft) 50 mg PO QDAY 4 10/26/24 History calcium polycarbophil 625 mg 1,250 mg (2 x 625 mg) PO QDAY #180 08/17/24 Unknown Rx tablet (Fiber Laxative (calcium tabs polycarbophil)) Allergy/AdvReac Type Severity Reaction Status Date / Time meloxicam (From Mobic) Allergy Hives Verified 10/26/24 10:39 naproxen (From Naprosyn) Allergy Hives Verified 10/26/24 10:39 codeine AdvReac Vomiting Verified 10/26/24 10:39 hydrocodone bitartrate (From AdvReac Nausea Verified 10/26/24 10:39 Vicodin) morphine AdvReac Chest Verified 10/26/24 10:39 tightness Surgical History History of cardiac catheterization Hx of colonoscopy History of tonsillectomy History of hysterectomy History of cholecystectomy Social History Smoking Status: Former smoker Review of Systems (Anesthesia) ROS Narrative System reviewed and no additional complaints, except as documented.
--- NOTE | 2024-10-26 11:19 | PCM.HP.STD ---
HPI - General General Date of Admission: 10/26/24 Date of Service: 10/26/24 HPI Narrative PAULINA GARCIA, is a 54 F who presents for the evaluation of abdominal pain OV 07/20/2024 54-year-old female presents for follow-up of abdominal pain, constipation, diarrhea, urgency, fecal incontinence and elevated alkaline phosphatase. Abdominal ultrasound performed 06/16/2024 with elastography reveals moderate to severe hepatic fibrosis and diffuse fatty infiltration of the liver. Autoimmune workup thus far is unremarkable. ALP has been elevated dating back to at least 2017, GGT was recently normal indicating elevation is unlikely secondary to a hepatobiliary source. She reports discontinuing Questran and pantoprazole as these showed no improvement in her symptoms. Due to a change in insurance she did not complete previously ordered CT of the abdomen or stool testing. She has previously failed dicyclomine, lactulose, Linzess, and Metamucil in addition to recently failing cholestyramine and pantoprazole. She will complete sits marker testing as well as CT and stool testing which was ordered at last OV. I have recommended she start vitamin E daily and she will schedule consult with Dr. Jackson for liver changes noted on prior US. Patient Instructions: Sitz marker testing Complete CT and stool testing ordered at last OV Start Vitamin E daily Consult with Dr. Jackson for liver changes noted on prior US STOOL Fecal Calprotectin 08/07/2024 and 01/07/2024 normal C. Diff PCR 08/07/2024 negative Fecal Elastase 01/07/2024 normal LABS 06/08/2024 ALP 139, CRP 17.3 ANCA, AMA, ASMA negative Hepatitia A IgM 03/18/2018 negative HBVsAg 03/18/2018 negative HBV Core IgM 03/18/2018 negative HCV Ab 03/18/2018 negative Travon 03/18/2018 negative TTG IgA 01/06/2024 negative Endomysial IgA Ab 01/06/2024 negative Food Allergen Panel 01/06/2024 normal CBC 01/06/2024 HGB 14.7, PLT 388 Elastography reveals moderate to severe hepatic fibrosis and diffuse fatty infiltration of the liver. kPa 10.6 which suggests high probability of advanced fibrosis. Sitz Marker reveals normal colonic transit Colonoscopy was performed April 2023 (Dr. Curtis) mucosa appeared normal, no random biopsies obtained. Sigmoid serrated hyperplastic polyp. CCX 2016 Acute and chronic, hemorrhagic and ulcerated cholecystitis and focal cholesterolosis. No stones are identified in the container or in the gallbladder. PREVIOUSLY FAILED: dicyclomine - did not help at all lactulose - uncertain what this did linzess - did nothing metamucil - did nothing Cholestyramine - did not help Pantoprazole - she reports this did not help although she does report resolution of HB - generalized abdominal pain, intermittent, before a BM, aching pain, improves after a BM - Constipation - will go up to 3 days without a BM, has rectal pain with hard stools - Diarrhea, sudden onset, urgency with stools, this happens when she has not had a BM for a few days, reports stool starts hard and then followed by watery diarrhea - she is not taking any fiber supplements - she reports she is not drinking enough water I just doesn't taste good to me - she is eating fruit and veggies 3-4x a week - she did not start Vitamin E as previously recommended - but cannot afford this OTC - she reports a recent knee x-ray was unremarkable and is scheduled for PT - she experiences nausea with constipation - occasional HB, intermittent - denies any emesis - c/o frequent belching and flatulence - c/o globus sensation - reports she took her BP meds this morning - states BP is normal at home, it's always high when I come in here [facility] Medical History Depression Anxiety Arthritis Fatty liver Back pain Injury of head and neck TIA (transient ischemic attack) Syncope Difficulty swallowing Gastric reflux Shortness of breath on exertion Former smoker Leg cramps History of pain when walking History of echocardiogram History of stress test Cardiology follow-up encounter Hypertension Home Medications ?Medication ?Instructions ?Recorded ?Last Taken ?Type metoprolol succinate 100 mg 100 mg PO QHS 08/13/22 10/25/24 History capsule sprinkle, ext. release 24 hr cholecalciferol (vitamin D3) 1,250 1,250 mcg PO QWEEK 01/06/24 Unknown History mcg (50,000 unit) capsule losartan 100 mg tablet 100 mg PO QDAY 01/06/24 10/26/24 History sertraline 50 mg tablet (Zoloft) 50 mg PO QDAY 01/06/24 10/26/24 History calcium polycarbophil 625 mg 1,250 mg (2 x 625 mg) PO QDAY #180 08/17/24 Unknown Rx tablet (Fiber Laxative (calcium tabs polycarbophil)) Allergy/AdvReac Type Severity Reaction Status Date / Time meloxicam (From Mobic) Allergy Hives Verified 10/26/24 10:39 naproxen (From Naprosyn) Allergy Hives Verified 10/26/24 10:39 codeine AdvReac Vomiting Verified 10/26/24 10:39 hydrocodone bitartrate (From AdvReac Nausea Verified 10/26/24 10:39 Vicodin) morphine AdvReac Chest Verified 10/26/24 10:39 tightness Surgical History History of cardiac catheterization Hx of colonoscopy History of tonsillectomy History of hysterectomy History of cholecystectomy Social History Smoking Status: Former smoker ROS Constitutional Constitutional: Denies fatigue, fever(s), poor appetite, weight gain or weight loss Gastrointestinal Gastrointestinal: Denies belching, bloating, change in bowel habits, change in stool character, chewing difficulty, coffee ground emesis, constipation, cramping, diarrhea, dyspepsia, dysphagia, early satiety, excessive flatus, fecal incontinence, heartburn, hematemesis, hematochezia, hemorrhoids, loose stools, melena, nausea, odynophagia, rectal bleeding, tenesmus, vomiting or weight changes Vital Signs Vital Signs Vital Signs: 10/26/24 10:40 10/26/24 10:40 10/26/24 11:08 Temperature 98 F 98 F Temperature Source Temporal Pulse Rate 70 70 Respiratory Rate 16 16 Respiratory Pattern Normal Blood Pressure 200/98 H 200/98 H Blood Pressure Mean 132 Blood Pressure Source Monitor Blood Pressure Position Semi-Fowlers Blood Pressure Location Right Arm Pulse Ox 100 100 Oxygen Delivery Method Room Air Room Air Weight Weight: 191 lb 2.252 oz Body Mass Index (BMI) 33.8 Physical Exam Const alert, oriented x3, no apparent distress and healthy appearing General Appearance: cooperative GI normal to inspection, nondistended, normoactive bowel sounds, soft to palpation, non-tender and non-distended Percussion: normal to percussion Rectal Exam: deferred Assessment & Plan Assessment/Plan (1) Dyspepsia: (2) Heartburn: (3) Abdominal pain: PLAN: Assessment and Plan Assessment and Plan (1) Constipation: Status: Acute Qualifiers: Constipation type: slow transit constipation Qualified Code(s): K59.01 - Slow transit constipation (2) Abdominal cramping: Status: Acute (3) Fatty liver: Status: Acute (4) Heartburn: Status: Acute (5) Dyspepsia: Status: Acute Orders: Orders CBC W/Diff, Automated Today I10 - Essential (primary) hypertension, K59.01 - Slow transit constipation, K76.0 - Fatty (change of) liver, not elsewhere classified, R10.13 - Epigastric pain, R10.9 - Unspecified abdominal pain, R12 - Heartburn Prothrombin Time w/INR Today I10 - Essential (primary) hypertension, K59.01 - Slow transit constipation, K76.0 - Fatty (change of) liver, not elsewhere classified, R10.13 - Epigastric pain, R10.9 - Unspecified abdominal pain, R12 - Heartburn [facility] Misc. Today I10 - Essential (primary) hypertension, K59.01 - Slow transit constipation, K76.0 - Fatty (change of) liver, not elsewhere classified, R10.13 - Epigastric pain, R10.9 - Unspecified abdominal pain, R12 - Heartburn Comprehensive Metabolic Profil Today I10 - Essential (primary) hypertension, K59.01 - Slow transit constipation, K76.0 - Fatty (change of) liver, not elsewhere classified, R10.13 - Epigastric pain, R10.9 - Unspecified abdominal pain, R12 - Heartburn Medications: New calcium polycarbophil (Fiber Laxative (calcium polycarbophil)) 1,250 mg (2 x 625 mg) PO QDAY 180 tabs 2RF pantoprazole take 30 minutes before breakfast daily 40 mg PO QDAY 90 tabs 1RF Plan 54-year-old female presents for 1 month follow-up of abdominal pain, constipation, diarrhea, urgency, fecal incontinence and elevated alkaline phosphatase with moderate to severe hepatic fibrosis and diffuse fatty infiltration of the liver. She was last seen in the office on 07/20/2024. Stool testing was negative for C. difficile PCR with a normal fecal calprotectin. Sitz marker reveals normal colonic transit. It was recommended she complete a CT scan which appears to be scheduled for September 04, 2024. She is continuing to experience abdominal pain associated with alternating bowel habits and I have recommended she increase her water intake and add a daily fiber supplement. She complains of dyspepsia, heartburn and occasional nausea. I have started her on pantoprazole 40 mg once daily and she will proceed with EGD. She is scheduled to see Dr. Jackson on 08/25/2024. Note: [employer] speech recognition ambulatory technologist software was used to create portions of this document. Sound-alike and misspelled words, as well as other ambulatory technologist errors may be contained in the documentation. Patient Instructions: Labs today CT as scheduled EGD Start pantoprazole 40 mg once daily Start FiberCon 2 tablets once daily Increase water intake Keep consult with Dr. Jackson as scheduled Follow-up in office post EGD
--- NOTE | 2024-10-26 11:30 | EGD_PTH ---
PATIENT: PAULINA GARCIA LOC: EN U#:[id number] AGE/SX: 54/F ROOM: RE10/26/[address]: Dr. Gio Her DO : 1970 BED: DIS: 10/26/2024 SPEC #: [id number] RECD: 10/26/24 13:24 STATUS: KHANH REAnabelle #: [id number] MADIE: 10/26/24 11:[address]: Gio Her DEPT: SURGICAL PATHOLOGY RECD BY: Lev Armijo ENTERED: 10/26/24 15:28 SP TYPE: EGD BIOPSY LUIS FERNANDO DR: Dr. Rosana Bryant MD Tissues: A - Duodenum, NOS B - Gastric mucous membrane C - Gastric mucous membrane D - Gastric mucous membrane E - Rectum, NOS Procedures: Immunohistochemical Stains Surgery Specimen Level IV HEADER OPERATION: EGD with biopsies PRE-OP DIAGNOSIS: Dyspepsia, heartburn, abdominal pain TISSUE SUBMITTED: A- Duodenum biopsy, B- Gastric antrum biopsy, C- Gastric body biopsy,D- Gastric ulcer biopsy, E- Rectum biopsy MICROSCOPIC DIAGNOSIS A. Duodenum, biopsy: - Normal villous architecture without increased intraepithelial lymphocytes. - Laura gland hyperplasia. B. Gastric antrum, biopsy: - Chronic gastritis. - IHC positive for H.pylori organisms. C. Gastric body, biopsy: - Active chronic gastritis. - Positive for Helicobacter-like organisms (H&E stain). D. Gastric ulcer, biopsy: - Active chronic gastritis. - Positive for Helicobacter-like organisms (H&E stain). E. Rectum, biopsy: - Focal hyperplastic change suggestive of hyperplastic polyp. MICROSCOPIC DESCRIPTION Slides are reviewed. All matched controls reacted appropriately. These tests were developed and their performance characteristics determined by [facility]. They may not have been cleared or approved by the U.S. Food and Drug Administration. The FDA has determined that such clearance or approval is not necessary. The above immunohistochemical/dualISH markers are viewed by the Pathologist. GROSS DESCRIPTION A. Received in fixative is one container labeled with the patient's name and designated Duodenum biopsy. The specimen consists of one irregular fragment of light kurtz soft tissue that measures 0.5 cm. The specimen is totally submitted in one cassette. B. Received in fixative is one container labeled with the patient's name and designated Gastric antrum biopsy. The specimen consists of two irregular fragments of light kurtz soft tissue that in aggregate measure 0.3 and 0.5 cm. The specimen is totally submitted in one cassette. C. Received in fixative is one container labeled with the patient's name and designated Gastric body biopsy. The specimen consists of multiple irregular fragments of light kurtz soft tissue that in aggregate measure <0.1 to 0.8 cm. The specimen is totally submitted in one cassette. D. Received in fixative is one container labeled with the patient's name and designated Gastric ulcer biopsy. The specimen consists of three irregular fragments of light kurtz soft tissue that in aggregate measure 0.1 to 0.4 cm. The specimen is totally submitted in one cassette. E. Received in fixative is one container labeled with the patient's name and designated Rectum biopsy. The specimen consists of two irregular fragments of light kurtz soft tissue that in aggregate measure 0.4 and 0.7 cm. The specimen is totally submitted in one cassette. 10/26/2024 CPT:33236t8,34237
--- NOTE | 2024-10-26 12:12 | OP.EGD_ITS ---
Patient Name: Gilma Miller Procedure Date: 10/26/2024 11:43 AM Date of : 1970 Age: 54 Procedure: Upper GI endoscopy Indications: Epigastric abdominal pain, Dyspepsia, Indigestion Providers: Gio Her DO Referring MD: Rosana Bryant Medicines: Monitored Anesthesia Care Patient Profile: This is a 54 year old female. Refer to note in patient chart for documentation of history and physical. Patient has symptoms of chronic abdominal cramping, acute abdominal distention, chronic epigastric abdominal pain, chronic dyspepsia and chronic nausea. Complications: No immediate complications. Procedure: Pre-Anesthesia Assessment: - Prior to the procedure, a History and Physical was performed, and patient medications and allergies were reviewed. The patient is competent. The risks and benefits of the procedure and the sedation options and risks were discussed with the patient. All questions were answered and informed consent was obtained. Patient identification and proposed procedure were verified by the physician in the pre-procedure area. Mental Status Examination: alert and oriented. Airway Examination: normal oropharyngeal airway and neck mobility. Respiratory Examination: clear to auscultation. CV Examination: normal. Prophylactic Antibiotics: The patient does not require prophylactic antibiotics. Prior Anticoagulants: The patient has taken no anticoagulant or antiplatelet agents except for NSAID medication. ASA Grade Assessment: II - A patient with mild systemic disease. After reviewing the risks and benefits, the patient was deemed in satisfactory condition to undergo the procedure. The anesthesia plan was to use monitored anesthesia care (MAC). Immediately prior to administration of medications, the patient was re-assessed for adequacy to receive sedatives. The heart rate, respiratory rate, oxygen saturations, blood pressure, adequacy of pulmonary ventilation, and response to care were monitored throughout the procedure. The physical status of the patient was re-assessed after the procedure. After obtaining informed consent, the endoscope was passed under direct vision. Throughout the procedure, the patient's blood pressure, pulse, and oxygen saturations were monitored continuously. The Endoscope was introduced through the mouth, and advanced to the third part of the duodenum. Small bowel enteroscopy was deemed necessary. The upper GI endoscopy was accomplished without difficulty. The patient tolerated the procedure well. Scope In: 11:53:41 AM Scope Out: 11:57:21 AM Total Procedure Duration Time 0 hours 3 minutes 40 seconds Findings: No gross lesions were noted in the entire esophagus. Patchy mildly erythematous mucosa without bleeding was found in the gastric body and in the gastric antrum. Biopsies were taken with a cold forceps for histology. Verification of patient identification for the specimen was done. Estimated blood loss was minimal. Biopsies were taken with a cold forceps for Helicobacter pylori testing. Verification of patient identification for the specimen was done. Estimated blood loss was minimal. One non-bleeding linear gastric ulcer with no stigmata of bleeding was found in the prepyloric region of the stomach. The lesion was 5 mm in largest dimension. Biopsies were taken with a cold forceps for histology. Verification of patient identification for the specimen was done. Estimated blood loss was minimal. Biopsies were taken with a cold forceps for Helicobacter pylori testing. Verification of patient identification for the specimen was done. Estimated blood loss was minimal. Patchy mildly erythematous mucosa without active bleeding and with no stigmata of bleeding was found in the entire duodenum. Biopsies were taken with a cold forceps for histology. Verification of patient identification for the specimen was done. Estimated blood loss was minimal. Impression: - No gross lesions in the entire esophagus. - Erythematous mucosa in the gastric body and antrum. Biopsied. - Non-bleeding gastric ulcer with no stigmata of bleeding. Biopsied. - Erythematous duodenopathy. Biopsied. Recommendation: - Discharge patient to home. - Resume previous diet. - Continue present medications. - Await pathology results. Procedure Code(s): --- Professional --- 61352, Small intestinal endoscopy, enteroscopy beyond second portion of duodenum, not including ileum; with biopsy, single or multiple CPT copyright 2021 [employer]. All rights reserved. The codes documented in this report are preliminary and upon crusher operator review may be revised to meet current compliance requirements. Gio Her DO 10/26/2024 12:12:12 PM This report has been signed electronically. Number of Addenda: 0 Note Initiated On: 10/26/2024 11:43 AM
--- NOTE | 2024-10-26 12:12 | OP.CCLET_ITS ---
10/26/2024 Rosana Bryant [address] [place] [address] Re : Upper GI endoscopy procedure for Gilma Miller Dear Dr. Bryant This procedure was performed on Saturday, October 26, 2024. My impressions and recommendations are as follows: Impressions : - No gross lesions in the entire esophagus. - Erythematous mucosa in the gastric body and antrum. Biopsied. - Non-bleeding gastric ulcer with no stigmata of bleeding. Biopsied. - Erythematous duodenopathy. Biopsied. Recommendations : - Discharge patient to home. - Resume previous diet. - Continue present medications. - Await pathology results. My findings are described in the full procedure note, which is enclosed. If I can be of further assistance, please feel free to contact me at . Sincerely, Gio Her, 10/26/2024 12:12:12 PM This report has been signed electronically.
--- NOTE | 2024-10-26 12:14 | PCM.POST.ANE ---
Anesthesia: Postop Eval I Current Vital Signs Temperature: 98.4 F Pulse Rate: 84 Blood Pressure: 120/64 Respiratory Rate: 16 Pulse Ox: 93 Oxygen Delivery Method: Room Air Assessment Airway patent: Yes Spontaneous unlabored respirations: Yes Mental status: Asleep nausea: No Vomiting: No Anesthesia Complication: No Fluid Hydration Crystalloid volume administer (ml): 600 Total IV fluid infused: 600 Progress Note Anesthesia document: Postop Eval 1 completed: Yes
--- NOTE | 2024-10-26 12:16 | OP.CCLET_ITS ---
10/26/2024 Rosana Bryant [address] [place] [address] Re : Flexible Sigmoidoscopy procedure for Gilmaanjel Miller Dear Dr. Bryant This procedure was performed on Saturday, October 26, 2024. My impressions and recommendations are as follows: Impressions : - Preparation of the colon was fair. - Congested mucosa in the rectum and in the recto-sigmoid colon. Biopsied. Recommendations : - Use Citrucel one teaspoon PO daily. My findings are described in the full procedure note, which is enclosed. If I can be of further assistance, please feel free to contact me at . Sincerely, Gio Her, 10/26/2024 12:15:19 PM This report has been signed electronically.
--- NOTE | 2024-10-26 12:16 | OP.FLEXSIG_ITS ---
Patient Name: Gilma Miller Procedure Date: 10/26/2024 12:01 PM Date of : 1970 Age: 54 Procedure: Flexible Sigmoidoscopy Indications: Epigastric abdominal pain, Abdominal pain in the left lower quadrant, Periumbilical abdominal pain, Clinically significant diarrhea of unexplained origin Providers: Gio Her DO Referring MD: Rosana Bryant Medicines: Monitored Anesthesia Care Patient Profile: This is a 54 year old female. Refer to note in patient chart for documentation of history and physical. Patient has symptoms of chronic abdominal cramping, acute abdominal distention, chronic epigastric abdominal pain, chronic dyspepsia and chronic nausea. Last Colonoscopy: several years ago. Complications: No immediate complications. Procedure: Pre-Anesthesia Assessment: - Prior to the procedure, a History and Physical was performed, and patient medications and allergies were reviewed. The patient is competent. The risks and benefits of the procedure and the sedation options and risks were discussed with the patient. All questions were answered and informed consent was obtained. Patient identification and proposed procedure were verified by the physician in the pre-procedure area. Mental Status Examination: alert and oriented. Airway Examination: normal oropharyngeal airway and neck mobility. Respiratory Examination: clear to auscultation. CV Examination: normal. Prophylactic Antibiotics: The patient does not require prophylactic antibiotics. Prior Anticoagulants: The patient has taken no anticoagulant or antiplatelet agents except for NSAID medication. ASA Grade Assessment: II - A patient with mild systemic disease. After reviewing the risks and benefits, the patient was deemed in satisfactory condition to undergo the procedure. The anesthesia plan was to use monitored anesthesia care (MAC). Immediately prior to administration of medications, the patient was re-assessed for adequacy to receive sedatives. The heart rate, respiratory rate, oxygen saturations, blood pressure, adequacy of pulmonary ventilation, and response to care were monitored throughout the procedure. The physical status of the patient was re-assessed after the procedure. After obtaining informed consent, the endoscope was passed under direct vision. Throughout the procedure, the patient's blood pressure, pulse, and oxygen saturations were monitored continuously. The Endoscope was introduced through the anus and advanced to the sigmoid colon. The flexible sigmoidoscopy was accomplished without difficulty. The patient tolerated the procedure well. The quality of the bowel preparation was fair. Scope In: 12:01:37 PM Scope Out: 12:03:02 PM Total Procedure Duration Time 0 hours 1 minute 25 seconds Findings: The perianal and digital rectal examinations were normal. Pertinent negatives include normal sphincter tone. An area of mildly congested mucosa was found in the rectum and in the recto-sigmoid colon. Biopsies were taken with a cold forceps for histology. Verification of patient identification for the specimen was done. Estimated blood loss was minimal. Impression: - Preparation of the colon was fair. - Congested mucosa in the rectum and in the recto-sigmoid colon. Biopsied. Recommendation: - Use Citrucel one teaspoon PO daily. Procedure Code(s): --- Professional --- 04258, Sigmoidoscopy, flexible; with biopsy, single or multiple CPT copyright 2021 [employer]. All rights reserved. The codes documented in this report are preliminary and upon personal insurance advisor review may be revised to meet current compliance requirements. Gio Her DO 10/26/2024 12:15:19 PM This report has been signed electronically. Number of Addenda: 0 Note Initiated On: 10/26/2024 12:01 PM
--- NOTE | 2024-10-26 13:46 | PCM.POSTANE2 ---
Anesthesia Postop Eval I Sum Postop Eval Completion status Anesthesia document: Postop Eval 1 completed: Yes Anesthesia Postop Eval I Summary Anesthesia Postop Eval I Summary: Anesthesia Postop Eval I: Assessment Summary Airway patent Yes 10/26/24 12:15 [email or web address] Spontaneous unlabored Yes 10/26/24 12:15 [email or web address] respirations Mental status Asleep 10/26/24 12:15 [email or web address] nausea No 10/26/24 12:15 [email or web address] Vomiting No 10/26/24 12:15 [email or web address] Anesthesia Postop Eval I: Fluid Summary Crystalloid volume administer 600 10/26/24 12:15 [email or web address] (ml) Colloids volume administered ( ml) Blood Product volume administered (ml) Total IV fluid infused 600 10/26/24 12:15 [email or web address] Anesthesia Postop Eval I: Summary Notes Anesthesia Complication No 10/26/24 12:15 [email or web address] Anesthesia Complication Comment: Post-operative progress note Anesthesia: Postop Eval II Evaluation Mental status: Awake and Calm Pain Level: 0 nausea: No Vomiting: No Complications Anesthesia Complication: No
== END 2024-10-26 13:26 | disposition home or self-care (01) ==
LOC: EN 10:18 → AC 10:22
PROVIDERS: PCP Internal Medicine; Referring Provider Internal Medicine; Visit Provider Internal Medicine Gastroenterology
PROC: 0DJ08ZZ Inspection of Upper Intestinal Tract, Via Natural or Artificial Opening Endoscopic (ICD-10-PCS; CPT 43235; principal; 2024-10-26 11:25)
PROC: 0DJD8ZZ Inspection of Lower Intestinal Tract, Via Natural or Artificial Opening Endoscopic (ICD-10-PCS; CPT 45330; 2024-10-26 11:25)
DX: K29.50 Unspecified chronic gastritis without bleeding (principal); K76.0 Fatty (change of) liver, not elsewhere classified; R15.9 Full incontinence of feces; I10 Essential (primary) hypertension; Z87.891 Personal history of nicotine dependence; K25.9 Gastric ulcer, unspecified as acute or chronic, without hemorrhage or perforation; K59.01 Slow transit constipation; Z79.899 Other long term (current) drug therapy; K21.9 Gastro-esophageal reflux disease without esophagitis
CPT/HCPCS: 45331; 44361; 88305; 88342; J2405

== ENCOUNTER → 2025-02-03 | Outpatient (CLI) | payer MEDICAID, SELFPAY ==
--- NOTE | 2025-02-03 06:45 | MRI_ITS ---
PROCEDURE: MRI/Lower Ext Joint Only (Routine)
== END | disposition home or self-care (01) ==
LOC: MRI 07:01
PROVIDERS: PCP Internal Medicine; Referring Provider Orthopaedic Surgery; Visit Provider Orthopaedic Surgery
DX: S83.207A Unspecified tear of unspecified meniscus, current injury, left knee, initial encounter (principal)
CPT/HCPCS: 73721